=== PATIENT | male | born 1960 | race Caucasian/White ===

== ENCOUNTER 2023-06-16 14:02 | Inpatient (IN) | payer MEDICARE, OTHER, SELFPAY ==
[2023-06-16] VITALS (10 sets, daily range): BP systolic 108–137; BP diastolic 67–86; BMI 25.1
--- NOTE | 2023-06-16 10:48 | ED.GENMED ---
History of Present Illness
General
Chief Complaint: Fall
Source: patient and ambulance crew
Exam Limitations: none
Time Seen by Provider: 06/16/23 10:47
Nursing documentation reviewed up to this point in time: agreed with
History of Present Illness
History of Present Illness:
63-year-old male with a past medical history of prior renal and liver transplants at [facility] (he says this past February) who presents to the emergency department for evaluation after fall. Patient reports that he was in the bathtub this morning
and slipped and fell. He says that he hit the back of his head. Did not lose consciousness. Injured his right hip. He complains of severe right hip pain. He denies any other complaints including headache, neck pain, back pain. Denies any chest
or abdominal pain. He denies being on any blood thinners.
Review of Systems
Review of Systems
All Other Systems: ROS reviewed and negative except as documented in HPI and ROS
Constitutional: Denies fever
Respiratory: Denies trouble breathing
Cardiac: Denies chest pain
ABD/GI: Denies abdominal pain, nausea or vomiting
: Denies flank pain
Musculoskeletal: Reports joint pain (Right hip pain); Denies neck pain or back pain
Neurological: Denies dizzy, headache, weakness or numbness
Phy Exam
Physical Exam
Physical Exam:
General: Awake, alert, oriented x3; appears uncomfortable
Head: Normocephalic, occipital scalp hematoma and laceration (approximately 1 cm)
Eyes: Conjunctiva normal, pupils equal round and reactive to light bilaterally
Throat: Airway intact, handling secretions
Neck: Trachea midline, supple without meningismus
Lungs: Clear to auscultation bilaterally, no wheezing, rales, rhonchi
Heart: Regular rate and rhythm, no murmurs, gallops, or rubs; no chest wall tenderness
Abd: Soft, non distended, nontender
Neuro: No gross deficits
Skin: Small occipital scalp laceration approximately 1 cm
Extremities: Right lower extremity is shortened and externally rotated; he has severe pain with any attempt at movement of his right hip; he has a good palpable right DP pulse; rest of his extremities are atraumatic with good pulses
Scores
Heart Failure Risk
Heart Failure Risk Score: Not Applicable
Heart Score for Chest Pain Patients
STEMI patient?: Not applicable
Withdrawal Assessment of Alcohol
Withdrawal Assessment Completed?: Not applicable
Course
Orders/Labs/Results
Orders:
Orders
06/16/23
Electrocardiogram (*1) Stat
Reason for Study: Chest Pain
Comment: already done
06/16/23 10:47
CT Cervical Spine W/o Iv Contr Urgent
Comment:
Reason For Exam: fall with occipital head stike
CT Head W/o Iv Contrast Urgent
Comment:
Reason For Exam: fall with occipital head stike
HYDROmorphone [Dilaudid] 1 mg IV NOW STA
CR Hip - RT w/wo Pel 2-3 Vw* Urgent
Comment:
Reason For Exam: right hip pain, short and ext rotated
Include a pelvis x-ray?: Yes
06/16/23 10:50
Type+Screen Urgent
Complete Blood Count/With Diff Urgent
Comprehensive Metabolic Panel Urgent
PTT Urgent
Prothrombin Time Urgent
06/16/23 11:16
HYDROmorphone [Dilaudid] 0.5 mg IV NOW STA
06/16/23 11:26
Ondansetron Injectable [Zofran] 4 mg .ROUTE .STK-MED ONE
06/16/23 12:08
CT Lower Ext W/o Iv Cont Rt Urgent
Comment: PER ORTHO REQUEST FOR OR PLANNING
Reason For Exam: right hip fx (please scan hip through femur)
06/16/23 12:46
Fentanyl Citrate/Pf [Sublimaze] 100 mcg IV ONCE PRN
Abnormal Lab Results
06/16/23
10:50
RBC 4.29 L 10^6/uL
(4.70-6.10)
Hct 36.7 L %
(39.0-52.0)
Abs Immat Gran (auto) 0.1 H 10^3/uL
(0-0.05)
Absolute Neuts (auto) 8.6 H 10^3/uL
(1.4-6.5)
Immature Gran % 0.9 H %
(0-0.5)
Neutrophils % 79.3 H %
(42.2-75.2)
Lymphocytes % 13.0 L %
(20.5-51.1)
BUN 28 H mg/dl
(9-20)
Glucose 101 H mg/dl
(70-99)
06/16/23 10:50
06/16/23 10:50
Vital Signs
Initial and Last Documented VS:
Initial Vital Signs
Pulse Resp
93 18
06/16/23 10:55 06/16/23 10:55
Last Documented Vital Signs
Temp Pulse Resp BP Pulse Ox
37.0 C 87 16 108/83 100
06/16/23 10:56 06/16/23 11:15 06/16/23 10:56 06/16/23 11:00 06/16/23 11:15
Procedures
Laceration Closure
Scalp:
Status of Wound: clean
Size of Wound in cm: 1
Description of Wound Edges: ragged
Preparation: cleaned with saline
Revision/Debridement: routine- no revision
Type of Closure: single layer closure
Skin Closure Material: skin zaina
Number of sutures: 2
MDM/Problems Addressed
Differential Diagnosis Includes:
Must rule out traumatic head injury; regarding his right hip pain differential would include dislocation versus fracture versus contusion/hematoma
MDM/Problems Addressed:
63-year-old male presents after mechanical slip and fall in the bathtub with head trauma and right hip injury. Vital signs and exam as above. Plan to check CT head and cervical spine. Will check an x-ray of the hip and pelvis. Will check basic
labs and EKG. Will treat patient's pain. Monitor closely reassess after the above.
Labs reviewed CBC unremarkable, CMP no clinically significant abnormalities. CT head and cervical spine negative for any acute posttraumatic injuries. X-ray of the hip shows right hip fracture. Case discussed with orthopedist they will evaluate,
OR planning. Case discussed with hospitalist for admission.
*Radiology
Radiology exam reviewed: preliminary read by ED provider and radiology read reviewed
*Pulse Oximetry
Patient hypoxic: no
*EKG
Interpreted by ED Provider?: Yes
Heart Rate: 95
Rate: normal
Rhythm: sinus
[place]: normal axis
Interval: normal interval
QRS Pattern: normal QRS
Ischemia: no ischemia
*Critical Care Note
Total Time (30-74mins, 75-104mins- exclusive of procedures): Not Applicable
Data Reviewed
Source: patient and ambulance crew
Patient Management
Discussion with other providers: Hospitalist (Discussed with hospitalist) and [employer] (Discussed with orthopedist)
Escalation/DeEscalation of care consider admission/obs:
Admission indicated
ED Attending Note
-
Portions of this chart may have been created with voice recognition software.� Occasional wrong word or��sound alike� substitutions may have occurred due to the inherent limitations of voice recognition software.
Discharge Plan
Departure
Patient Disposition: Admit
Date of Disposition: 06/16/23
Time of Disposition: 12:09
Admit to doctor: Tianna
Presentation/result/management discussed w/ accepting MD/DO: Hospitalist
Discharge Problem:
Fracture of right hip, Laceration of scalp
Prescriptions:
No Action
tacrolimus 1 mg Capsule
3 mg PO Q12H
Levemir FlexPen 100 unit/mL (3 mL) Insulin Pen
24 unit SC HS
melatonin 3 mg Tablet
9 mg PO HS
Rx Instructions:
06/16/2023, take with 36 mg HS for a total of 45 mg.
aspirin 81 mg Tablet,Delayed Release (Dr/Ec)
81 mg PO DAILY
insulin lispro 100 unit/mL Insulin Pen
0 sliding scale dose SC DIRECTED
Patient Comments:
06/16/2023, pt. manages their own insulin and takes it on a sliding scale; per pt., he follows his own sliding scale; if his BS is 99 he will take 7 units; if 150 = 10 units; if 200 = 12 units.
mycophenolate sodium 180 mg Tablet,Delayed Release (Dr/Ec)
180 mg PO Q12H
oxycodone 10 mg Tablet
10 mg PO .SEE BELOW PRN (Reason: severe pain)
Patient Comments:
06/16/2023, prescribed BIDPRN; however, pt. takes Q4HPRN. Pt. filled this med. on 06/01/2023 for 10 tablets per PDMP.
melatonin 12 mg Tablet
36 mg PO HS
Rx Instructions:
06/16/2023, take with 9 mg HS for a total of 45 mg.
Referrals:
Geneva Lantigua DO [Family Provider] -
Interventions
Interventions:
*Risk Screen - Suicide Last Done: 06/16/23 10:56
*General Assessment Last Done: 06/16/23 10:56
*Neglect/Abuse Screening Last Done: 06/16/23 10:56
ED- Fall Risk Assessment Last Done: 06/16/23 10:56
*ED COVID-19 Vaccine History Last Done: 06/16/23 10:56
ED-Musculoskeletal Assessment Last Done: 06/16/23 10:56
ED- Neurological Assessment Last Done: 06/16/23 10:56
ED-Skin Assessment Last Done: 06/16/23 10:56
--- NOTE | 2023-06-16 11:00 | EDRN ---
zaina placed to posterior laceration by provider Dr. Garibay
[2023-06-16 11:03] LABS: % Basophils 0.3 % (0-2); % Eosinophils 1.3 % (0-6); % Immature Granulocytes 0.9 % (0-0.5); % Monocytes 5.2 % (1.7-9.3); % Neutrophils 79.3 % (42.2-75.2); Absolute Eosinophils 0.1 10^3/uL (0-0.7); Absolute Immature Granulocytes 0.1 10^3/uL (0-0.05); Absolute Lymphocytes 1.4 10^3/uL (1.2-3.4); Absolute Monocytes 0.6 10^3/uL (0.1-0.6); Absolute Neutrophils 8.6 10^3/uL (1.4-6.5); Hematocrit 36.7 % (39.0-52.0); Hemoglobin 13.3 g/dL (13.0-18.0); Mean Corp Hgb Conc. 36.2 g/dL (33.0-37.0); Mean Corpuscular Volume 85.5 fL (80.0-94.0); Mean Platelet Volume 10.4 fL (7.4-10.4); Nucleated Red Blood Cells % 0 % (-); Platelet Count 139 10^3/uL (130-400); Red Blood Cell Count 4.29 10^6/uL (4.70-6.10); White Blood Cell Count 10.8 10^3/uL (4.8-10.8)
[2023-06-16] MEDS: DILAUDID 1 MG IV ×3 (11:09→19:21)
[2023-06-16 11:11] LABS: INR 1.06; PT 13.6 Sec (11.4-14.6)
[2023-06-16 11:12] LABS: ALT (SGPT) 18 U/L (0-50); APTT 27.5 Sec (23.4-35.0); AST (SGOT) 21 U/L (17-59); Alkaline Phosphatase 87 U/L (38-126); Blood Urea Nitrogen 28 mg/dl (9-20); Calcium 8.9 mg/dl (8.4-10.2); Carbon Dioxide 26 mmol/L (22-30); Chloride 107 mmol/L (98-107); Estimated Creatinine Clearance 80 ml/min; Glucose 101 mg/dl (70-99); Potassium 4.4 mmol/L (3.5-5.1); Sodium 137 mmol/L (135-145); Total Bilirubin 1.3 mg/dl (0.2-1.3); Total Protein 6.6 g/dl (6.3-8.2); eGFR > 60.00
[2023-06-16] MEDS: DILAUDID 0.5 MG IV ×2 (11:26→22:17)
--- NOTE | 2023-06-16 11:32 | EDRN ---
the pts pants were removed by this RN and the help of another nurse Nathaly RN before the pt went to xray, the pt reported that he was still feeling pain in the right groin/right hip area and that his pain was 09/17-11/17, this RN notified Dr. Garibay and
another dose of dilaudid was administered before the pt went to xray
[2023-06-16] MEDS: SUBLIMAZE 100 MCG IV (13:00)
--- NOTE | 2023-06-16 13:53 | EDRN ---
hospitalist at the pts bedside speaking with the pt
--- NOTE | 2023-06-16 14:00 | HPS.HSE ---
Addendum entered and electronically signed by Manuel Alcazar MD 06/16/23 14:23:
I saw and examined the patient.
The ESTIMATOR LUMBER's note was reviewed and I agree with the note.
Comment:
63-year-old male past medical history of liver cirrhosis/hep C infection/CKD status post liver and renal transplant on February 26, 2022, insulin-dependent diabetes, CAD status post stents x 4 is presenting with a fall from hotel. Patient is
currently residing in a hotel. Patient states he got out of the shower slipped and hit his head. Patient complaining of severe pain. Patient was found to be right femur fracture. Prior to the fall patient denied any chest pain palpitation.
States at baseline he is mobile and active.
General: Well Developed, Well Nourished and Other (Appears in pain)
HEENT: Anicteric and Moist mucous membranes
Respiratory: Clear and Non Labored Respirations
Cardiac: S1/S2 and Regular Rhythm
GI: Soft and Non Tender, nondistended
Musculoskeletal: No Clubbing, No Cyanosis and Other (Right Lower Ext shortened and externally rotated)
Skin: Warm and Dry
Neuro: Awake, Alert and Oriented
Impression
Right femur fracture
Mechanical fall
Liver transplant
Renal transplant
Diabetes mellitus
CAD status post stents x4
Chronic immunosuppressant state
Chronic opiate dependent
Plan
Seems to have a high pain tolerance
Continue with pain control with Dilaudid
N.p.o. past midnight
Await orthopedic eval/recs
Patient currently without any chest pain or shortness of breath. Patient states at baseline he is fairly active and did not have any chest pain at rest or exertion. Patient said he is able to go up a couple flights of stairs without any
difficulty. Able to ambulate and walk. Patient with history of diabetes and coronary artery disease seems to be well-controlled. EKG with normal sinus rhythm ventricular rate of 78. No severe acute ST or T wave changes noted. No prior EKG to
compare. Patient with class II/III intermediate cardio risk for operating room. Risk outweighs benefits. Medically necessary surgery and may proceed.
Continue with patient immunosuppressant medication.
Check urine drug screen
Hold aspirin in the setting of surgery and can be restarted postop if cleared by surgery
DVT prophylaxis SCDs and postop per orthopedic
I spent a total of 78 minutes with the patient or on the floor. More than 50% of this time involved counseling and coordination of care.
Original Note:
Family Physician
-
Family Physician: Geneva Lantigua
Chief Complaint
-
Fall with severe hip pain
History of Present Illness
Patient is a 63 y/o male with PMH of cirrhosis secondary to hepatitis C infection s/p liver and left renal transplant and insulin-dependent type II diabetes mellitus who presented to the ED following a fall this morning. Patient reports that he fell
while getting out of the shower and hit his head. He does not remember exactly how or why he fell. Hip x-ray revealed fracture of the right femur, head CT and cervical spine CT revealed no abnormalities. He reports that this pain was originally
01/17 but is now decreasing after administration of pain medication in the ED. He denies fever, chest pain, and SOB.
Medical History
Past Medical History
Past Medical History: Reports Other
Additional Past Medical History:
Coronary Artery Disease
Diabetes Mellitus, Type II
Cirrhosis secondary Hepatitis C
Past Surgical History: Reports Other
Additional Past Surgical History:
Kidney Transplant
Liver Transplant
Cardiac Stents
Social History
Tobacco: Former Smoker (Quit 14 years ago)
Family History
Family History: Not pertinent
Allergies / Home Medications
Allergies reflects when Allergies were last updated in [facility].
Home Medications with original date entered in [facility]
Allergy/Medication List:
Allergies
Allergy/AdvReac Type Severity Reaction Status Date / Time
No Known Allergies Allergy Unverified 06/16/23 10:49
Home Medications
aspirin 81 mg tablet,delayed release 81 mg PO DAILY 06/16/23
insulin detemir U-100 100 unit/mL (3 mL) subcutaneous pen (Levemir FlexPen) 24 unit SC HS 06/16/23
insulin lispro 100 unit/mL subcutaneous pen 0 sliding scale dose SC DIRECTED 06/16/23
melatonin 12 mg tablet 36 mg PO HS 06/16/23
melatonin 3 mg tablet 9 mg PO HS 06/16/23
mycophenolate sodium 180 mg tablet,delayed release 180 mg PO Q12H 06/16/23
oxycodone 10 mg tablet 10 mg PO .SEE BELOW PRN severe pain 06/16/23
tacrolimus 1 mg capsule, immediate-release 3 mg PO Q12H 06/16/23
Review of Systems
-
A 12 point ROS was completed and negative except as noted: Yes
Constitutional: Denies Fever or Chills
Respiratory: Denies Cough or Trouble Breathing
Cardiac: Denies Chest Pain or Palpitations
Musculoskeletal: Reports See HPI
Physical Exam
Vital Signs
Vital Signs
Temp Pulse Resp BP Pulse Ox
98.6 F 89 16 114/76 100
06/16/23 10:56 06/16/23 13:49 06/16/23 10:56 06/16/23 13:49 06/16/23 13:49
Physical Exam
General: Well Developed, Well Nourished and Other (Appears in pain)
HEENT: Anicteric and Moist mucous membranes
Respiratory: Clear and Non Labored Respirations
Cardiac: S1/S2 and Regular Rhythm
GI: Soft and Non Tender
Rectal: Deferred by Provider
Musculoskeletal: No Clubbing, No Cyanosis and Other (Right Lower Ext shortened and externally rotated)
Skin: Warm and Dry
Neuro: Awake, Alert and Oriented
Laboratory Results
-
06/16/23 10:50
06/16/23 10:50
Laboratory Results
PT 13.6 Sec (11.4-14.6) 06/16/23 10:50
INR 1.06 06/16/23 10:50
APTT 27.5 Sec (23.4-35.0) 06/16/23 10:50
Total Bilirubin 1.3 mg/dl (0.2-1.3) 06/16/23 10:50
AST 21 U/L (17-59) 06/16/23 10:50
ALT 18 U/L (0-50) 06/16/23 10:50
Alkaline Phosphatase 87 U/L (38-126) 06/16/23 10:50
Data Reviewed
-
CT Scan: Report Reviewed by me
Lab Data: Labs Reviewed by me
Impression/Plan
-
Right Hip Fracture
-Consult Orthopedics
-NPO pending Ortho eval
-Continue Dilaudid for moderate/severe pain
Coronary Artery Disease s/p stent
-Hold aspirin in preparation for OR
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
-Continue mycophenolate and tacrolimus
Diabetes Mellitus, Type II
-Half usual dose of Levemir ordered while NPO for OR
-Monitor sugars and continue coverage insulin
DVT proph: SCDs
Code Status: Full Code
--- NOTE | 2023-06-16 14:39 | EDRN ---
this RN called the receiving unit and notified them that paper report was going to be tubed up
--- NOTE | 2023-06-16 15:17 | EDRN ---
this coding compliance specialist the pt screaming, 'Nurse, nurse please help me, help me!', this RN entered the pts room with ruth Fields and the pt c/o severe 10/10 right hip pain, this RN administered PRN dilaudid, ortho at the pts bedside, the pt is resting in
stretcher in the lowest position, side rails up x2, call prasad within reach, HOB elevated, NSR in the 80's, last BP 115/67 (81), RA Sp02 100%, will continue to monitor the pt closely
--- NOTE | 2023-06-16 15:35 | EDRN ---
the pt is resting in stretcher in the lowest position, side rails up x2, call prasad within reach, HOB slightly elevated, no s/s of distress, the pt states that pain is 'much better', and is a 5/10 currently, awaiting for the pt to go upstairs
--- NOTE | 2023-06-16 15:56 | CON.ORTHO ---
Consultation - Orthopedics
History
Patient is a 63-year-old male presents to [facility] status post fall at his hotel after getting out of the shower. Imaging in the ED revealed a right hip fracture and orthopedic surgery consultation was subsequently rendered. Patient has a
history significant for cirrhosis and hep C infection with CKD status post liver and renal transplant in February 2022. He is also insulin-dependent diabetic and has CAD status post stents x 4. He reports of severe pain in his right hip. He
denies any pain in his right knee or ankle. He does report that he is fairly active and walks about 1 mile a day. Denies any numbness or tingling in his right lower extremity.
Allergies / Home Medications
Allergy/AdvReac Type Severity Reaction Status Date / Time
No Known Allergies Allergy Unverified 06/16/23 10:49
Medication Instructions Recorded
aspirin 81 mg tablet,delayed 81 mg PO DAILY 06/16/23
release
insulin detemir U-100 100 unit/mL 24 unit SC HS 06/16/23
(3 mL) subcutaneous pen (Levemir
FlexPen)
insulin lispro 100 unit/mL 0 sliding scale dose SC DIRECTED 06/16/23
subcutaneous pen
melatonin 12 mg tablet 36 mg PO HS 06/16/23
melatonin 3 mg tablet 9 mg PO HS 06/16/23
mycophenolate sodium 180 mg 180 mg PO Q12H 06/16/23
tablet,delayed release
oxycodone 10 mg tablet 10 mg PO .SEE BELOW PRN 06/16/23
severe pain
tacrolimus 1 mg capsule, 3 mg PO Q12H 06/16/23
immediate-release
Vital Signs / Lab Results
Temp Pulse Resp BP Pulse Ox
98.6 F 85 16 115/67 99
06/16/23 10:56 06/16/23 15:30 06/16/23 10:56 06/16/23 15:00 06/16/23 15:30
06/16/23 10:50
06/16/23 10:50
Review of systems: Negative unless as stated in the HPI
General: Well Developed, Well Nourished and Other (Appears in pain)
HEENT: Anicteric and Moist mucous membranes
Respiratory: Clear and Non Labored Respirations
Cardiac: S1/S2 and Regular Rhythm
GI: Soft and Non Tender, nondistended
Skin: Warm and Dry
Neuro: Awake, Alert and Oriented
MSK: Pain elicited upon palpation of right groin. Range of motion right hip and knee limited due to pain at the right hip. Painless range of motion present of the right ankle. Skin intact with no lacerations or breakage. Dorsalis pedis pulse 2+.
Sensation intact at the right lower extremity grossly.
Imaging:
X-rays of the right hip and CT of the lower extremity was reviewed. Images demonstrate a subcapital right hip fracture with extension to the lesser trochanter. Fracture appears to be minimally displaced.
Assessment / Plan
Assessment:
Minimally displaced subcapital right hip fracture with extension into the lesser trochanter
Plan:
Lengthy discussion had with patient regarding treatment options. Case also discussed with our orthopedic joints colleagues. Due to the minimally displaced nature of the fracture and due to his significant medical comorbidities, it is appropriate
to treat the fracture with closed versus open reduction and sliding hip screw fixation. We will plan on performing this procedure tomorrow morning. Please hold all anticoagulation and keep patient n.p.o. after midnight tonight. Right lower
extremity nonweightbearing. Further recommendations after surgery.
[2023-06-16 17:00] LABS: Glucose - Point of Care 86 mg/dl (70-99)
[2023-06-16] MEDS: ROXICODONE 10 MG PO (17:04)
--- NOTE | 2023-06-16 17:13 | PTCARENOTE ---
Received patient from ER around 1545 via stretcher in stable condition. Patient oriented to room. Right hip with pain. Estrellita 10 mg po given as ordered as it was not time for dilaudid yet. SCDs on. Call prasad in place.
[2023-06-16] MEDS: PROGRAF 3 MG PO (20:24)
[2023-06-16] MEDS: MYFORTIC DELAYED REL. 180 MG PO (20:24)
[2023-06-16 21:18] LABS: Glucose - Point of Care 128 mg/dl (70-99)
[2023-06-16] MEDS: MELATONIN 10 MG PO (22:14)
[2023-06-16] MEDS: LEVEMIR 0.119999999999999996 UNITS SC (22:14)
[2023-06-16 23:56] LABS: Glucose - Point of Care 145 mg/dl (70-99)
[2023-06-17] VITALS (9 sets, daily range): BP systolic 101–161; BP diastolic 58–80
[2023-06-17] MEDS: DILAUDID 1 MG IV ×7 (01:15→23:12)
[2023-06-17 01:48] LABS: Amphetamines Negative (Negative); Barbiturates Negative (Negative); Benzodiazepines Negative (Negative); Buprenorphine Negative (Negative); Cocaine Negative (Negative); Marijuana Negative (Negative); Methadone Negative (Negative); Methamphetamines Negative (Negative); Opiates Positive (Negative); Phencyclidine Negative (Negative); Tricyclic Antidepressants Negative (Negative)
[2023-06-17 02:05] LABS: Fentanyl, Urine Positive (Negative)
[2023-06-17 06:20] LABS: Glucose - Point of Care 79 mg/dl (70-99)
[2023-06-17 07:13] LABS: Hematocrit 32.2 % (39.0-52.0); Hemoglobin 11.5 g/dL (13.0-18.0); Mean Corp Hgb Conc. 35.7 g/dL (33.0-37.0); Mean Corpuscular Hgb 30.5 pg (27.0-31.0); Mean Corpuscular Volume 85.4 fL (80.0-94.0); Mean Platelet Volume 10.4 fL (7.4-10.4); Platelet Count 115 10^3/uL (130-400); Red Blood Cell Count 3.77 10^6/uL (4.70-6.10); Red Cell Dist. Width 13.9 % (11.5-14.5); White Blood Cell Count 8.1 10^3/uL (4.8-10.8)
[2023-06-17 07:41] LABS: Blood Urea Nitrogen 31 mg/dl (9-20); Calcium 8.6 mg/dl (8.4-10.2); Carbon Dioxide 23 mmol/L (22-30); Chloride 106 mmol/L (98-107); Estimated Creatinine Clearance 67 ml/min; Glucose 79 mg/dl (70-99); Sodium 136 mmol/L (135-145); eGFR > 60.00
[2023-06-17 07:46] LABS: Potassium 4.3 mmol/L (3.5-5.1)
[2023-06-17 09:39] LABS: Glycohemoglobin (HgbA1c) 7.4 % (4.0-5.6)
--- NOTE | 2023-06-17 10:31 | W.PN.HOSP.TC ---
Today's Communication/Plan
-
resume back insulin
pain control
pt/ot tomorrow
Assessment / Plan
Assessment / Plan
Right Hip Fracture
-s/p ORIF today
-Continue Dilaudid for moderate/severe pain
-PT/OT from tomorrow
Left side Roator cuff inj
-Patient stated of injuring rotator cuff somehow
-Patient instructed to discuss with orthopedic surgeon
Coronary Artery Disease s/p stent
-resume back asa
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
-Continue mycophenolate and tacrolimus
Diabetes Mellitus, Type II
-Resume back on home dose of Levemir 24U HS
-Monitor sugars and continue coverage insulin
DVT proph: SCDs
Code Status: Full Code
Anticipated Discharge: 24 - 48 hours
Subjective/Interval History
-
Date of Service: June 17, 2023
Patient seen postoperatively
Complain 10 out of 10 pain in right hip
stated of having left torn rotator cuff somehow, have not been evaluated
Objective Data
-
Labs:
Laboratory Results
06/17/23
06:19
WBC 8.1
Hgb 11.5 L
Hct 32.2 L
Plt Count 115 L
Sodium 136
Potassium 4.3
Chloride 106
Carbon Dioxide 23
BUN 31 H
Creatinine 1.2
Glucose 79
Calcium 8.6
Vital Signs:
Vital Signs
Temp Pulse Resp BP Pulse Ox
97.8 F 90 16 118/73 99
06/17/23 07:45 06/17/23 07:45 06/17/23 07:45 06/17/23 07:45 06/17/23 07:45
I&O
06/16/23 06/17/23 06/18/23
06:59 06:59 07:59
Intake Total 480 / 480
Output Total 400 / 400
Balance 80 / 80
Review of Systems
-
Respiratory: Reports No Symptoms
Cardiac: Reports No Symptoms
Abdomen/GI: Reports No Symptoms
Physical Exam
-
HEENT: Negative Oxygen
Respiratory: Clear to Auscultation
Cardiac: Regular Rhythm and S1/S2; Negative Murmur or Rub
GI: Soft, Nontender and Nondistended
Musculoskeletal: No Edema
Neuro: Awake, Alert, Oriented, No Motor Deficits and Nonfocal/Grossly Intact
Psych: Calm
[2023-06-17 10:50] LABS: Glucose - Point of Care 98 mg/dl (70-99)
[2023-06-17] MEDS: DILAUDID 0.25 MG IV ×2 (11:09→11:14)
[2023-06-17] MEDS: PROGRAF 3 MG PO ×2 (11:36→19:54)
[2023-06-17] MEDS: MYFORTIC DELAYED REL. 180 MG PO ×2 (11:36→19:54)
[2023-06-17] MEDS: DILAUDID 0.5 MG IV (14:01)
--- NOTE | 2023-06-17 14:24 | W.PN.UPDATE ---
Update Note
Progress Note Update
Patient is status post right hip closed reduction and sliding hip compression screw fixation. Pain controlled, moving right ankle. Dressing CDI. He may weight-bear as tolerated right lower extremity. PT/OT. DVT prophylaxis with SCDs and aspirin
325 mg twice daily x 4 weeks. Diet okay.
--- NOTE | 2023-06-17 15:14 | CM ---
CM following re: discharge planning.
Reviewed pt's chart, met with pt.
Pt is a 63 year old male, admitted with primary dx of Right Hip Fracture, s/p ORIF today
Pt reports he has been staying in and out in [employer] in [place], also stays in friends houses, has 4 supportive children. 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 Pt is aware he will need SNF level of care at discharge and following
SNFs requested: [facility], [facility], [facility], [facility]F. A referral to above SNFs made.
PCP: Geneva Lantigua
Pharmacy: [facility]
D/C plan: preferred SNF. Awaiting for determinations
CM will follow to assist pt with discharge to a preferred and accepted SNF.
[2023-06-17 16:50] LABS: Glucose - Point of Care 131 mg/dl (70-99)
[2023-06-17] MEDS: ANCEF 5 IV ×2 (17:22→23:12)
[2023-06-17] MEDS: ASPIRIN 325 MG PO (19:54)
[2023-06-17] MEDS: FLEXERIL 5 MG PO (19:54)
[2023-06-17 21:37] LABS: Glucose - Point of Care 282 mg/dl (70-99)
[2023-06-17] MEDS: MELATONIN 10 MG PO (21:58)
[2023-06-17] MEDS: LEVEMIR 0.239999999999999991 UNITS SC (21:58)
[2023-06-18 03:00] VITALS: BP 98/61
[2023-06-18] MEDS: DILAUDID 1 MG IV ×3 (03:29→09:31)
[2023-06-18 06:32] LABS: Hematocrit 28.9 % (39.0-52.0); Hemoglobin 10.5 g/dL (13.0-18.0); Mean Corp Hgb Conc. 36.3 g/dL (33.0-37.0); Mean Corpuscular Hgb 30.9 pg (27.0-31.0); Mean Platelet Volume 10.2 fL (7.4-10.4); Platelet Count 111 10^3/uL (130-400); Red Cell Dist. Width 13.9 % (11.5-14.5); White Blood Cell Count 8.2 10^3/uL (4.8-10.8)
[2023-06-18 06:53] LABS: Blood Urea Nitrogen 32 mg/dl (9-20); Calcium 8.3 mg/dl (8.4-10.2); Carbon Dioxide 24 mmol/L (22-30); Chloride 108 mmol/L (98-107); Estimated Creatinine Clearance 62 ml/min; Glucose 157 mg/dl (70-99); Potassium 4.2 mmol/L (3.5-5.1); Sodium 134 mmol/L (135-145); eGFR > 60.00
[2023-06-18 08:00] VITALS: BP 96/62
--- NOTE | 2023-06-18 08:06 | W.PN.ORTHO ---
Documented by User: Viviana Vale PA-C 06/18/23 08:11
Today's Communication / Plan
-
63 yo M POD1 right hip closed reduction and sliding hip compression screw fixation under the direction of Dr. Arredondo
--Patient may be WBAT to RLE with assistive device. We appreciate the assistance of PT/OT.
--Recommend ASA 325 mg BID x30 days post-op for DVT ppx.
--Continue current pain management regimen. Ice and elevation for edema control.
--Hgb 10.5. Continue to monitor.
--Aquacel to remain in place until 7-10 days post-op. Staple removal at 2 weeks post-op.
--Case management consult for discharge planning.
--Orthopedics will continue to follow along.
Assessment
.
Distal Motor Intact: Yes
Dressing:
Clean, dry and intact.
Plan
.
Surgery / Date: ORIF R hip, Maria Elena, 06/17/23
DVT Prophylaxis: Aspirin
Activity:
Out of bed.
PT/OT
Subjective
.
.:
Mr. Crawford is POD1 following his right hip closed reduction and sliding hip compression screw fixation performed by Dr. Arredondo (DOS 06/17/2023). He is resting comfortably in bed this morning. He does endorse aching pain about his hip and thigh, but
states this is well controlled with his current pain management regimen.
Vital Signs and Labs
.
Vital Signs and Labs:
Lab Results
06/18/23 06:07
06/18/23 06:07
Temp Pulse Resp BP Pulse Ox
97.4 F 87 16 98/61 99
06/18/23 03:00 06/18/23 03:00 06/18/23 03:00 06/18/23 03:00 06/18/23 03:00
PT 13.6 Sec (11.4-14.6) 06/16/23 10:50
INR 1.06 06/16/23 10:50
Physical Exam
-
Directed exam of the right lower extremity reveals Aquacel dressing clean, dry and intact. Tenderness to palpation about the anterior hip and thigh. Thigh soft and compressible. Calf soft and nontender. Patient able to wiggle toes, plantar and
dorsiflex ankle. Neurovascularly intact distally.

Documented by User: Cassia Arredondo, 06/18/23 15:21
Today's Communication / Plan
-
63 yo M POD1 right hip closed reduction and sliding hip compression screw fixation under the direction of Dr. Arredondo
--Patient may be WBAT to RLE with assistive device. We appreciate the assistance of PT/OT.
--Recommend ASA 325 mg BID x4 weeks post-op for DVT ppx.
--Continue current pain management regimen. Ice and elevation for edema control.
--Hgb 10.5. Continue to monitor.
--Aquacel to remain in place until 7-10 days post-op. Staple removal at 2 weeks post-op.
--Case management consult for discharge planning.
--Orthopedics will continue to follow along.
[2023-06-18 08:39] LABS: Glucose - Point of Care 67 mg/dl (70-99)
[2023-06-18] MEDS: NOVOLOG FLEXPEN-LOW RESISTANCE SC (09:01)
[2023-06-18 09:05] LABS: Glucose - Point of Care 52 mg/dl (70-99)
[2023-06-18] MEDS: MYFORTIC DELAYED REL. 180 MG PO ×2 (09:07→20:13)
[2023-06-18] MEDS: ASPIRIN 325 MG PO ×2 (09:07→20:14)
[2023-06-18] MEDS: PROGRAF 3 MG PO ×2 (09:07→20:13)
[2023-06-18 09:17] LABS: Glucose - Point of Care 71 mg/dl (70-99)
[2023-06-18 09:38] VITALS: BP 101/63; BP 117/68; PULSE 63
--- NOTE | 2023-06-18 11:23 | W.PN.HOSP.TC ---
Today's Communication/Plan
-
Decrease Lantus dose
Adjust pain medication
Assessment / Plan
Assessment / Plan
Right Hip Fracture
Acute blood loss anemia from surgery
-s/p ORIF today
-Pain medication adjusted to oral oxycodone for severe pain with Dilaudid for breakthrough
-Patient not participating with PT OT due to excessive pain
-Transfuse hemoglobin less than 7
Left side Roator cuff inj
-Patient stated of injuring rotator cuff somehow
-Patient instructed to discuss with orthopedic surgeon
Coronary Artery Disease s/p stent
-resume back asa
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
-Continue mycophenolate and tacrolimus
Diabetes Mellitus, Type II
-Monitor sugars and continue coverage insulin
-Encourage oral intake. Glucose during the morning today, will decrease nighttime Lantus
Mild hyponatremia
-Monitor
DVT proph: SCDs
Code Status: Full Code
Anticipated Discharge: Within 24 hours
Subjective/Interval History
-
Date of Service: June 18, 2023
Continues to complain significant pain in right hip, did not participate with therapy due to pain
No reported acute issues overnight
Objective Data
-
Labs:
Laboratory Results
06/18/23
06:07
WBC 8.2
Hgb 10.5 L
Hct 28.9 L
Plt Count 111 L
Sodium 134 L
Potassium 4.2
Chloride 108 H
Carbon Dioxide 24
BUN 32 H
Creatinine 1.3
Glucose 157 H
Calcium 8.3 L
Vital Signs:
Vital Signs
Temp Pulse Resp BP Pulse Ox
97.6 F 74 18 96/62 98
06/18/23 08:00 06/18/23 08:00 06/18/23 08:00 06/18/23 08:00 06/18/23 08:00
I&O
06/17/23 06/18/23 06/19/23
05:59 06:59 06:59
Intake Total 480 / 480
Output Total 700 / 700
Balance -220 / -220
Review of Systems
-
Respiratory: Reports No Symptoms
Cardiac: Reports No Symptoms
Abdomen/GI: Reports No Symptoms
Physical Exam
-
HEENT: Negative Oxygen
Respiratory: Clear to Auscultation
Cardiac: Regular Rhythm and S1/S2; Negative Murmur or Rub
GI: Soft, Nontender and Nondistended
Musculoskeletal: No Edema
Neuro: Awake, Alert, Oriented, No Motor Deficits and Nonfocal/Grossly Intact
Psych: Calm
[2023-06-18 11:31] LABS: Glucose - Point of Care 164 mg/dl (70-99)
[2023-06-18] MEDS: ROXICODONE 15 MG PO ×3 (13:07→23:32)
[2023-06-18 13:10] LABS: Glucose - Point of Care 151 mg/dl (70-99)
[2023-06-18] MEDS: NOVOLOG FLEXPEN-LOW RESISTANCE 1 UNITS SC ×2 (13:48→18:11)
[2023-06-18] MEDS: DILAUDID 0.25 MG IV ×3 (14:18→22:21)
[2023-06-18 16:24] LABS: Glucose - Point of Care 357 mg/dl (70-99)
[2023-06-18 16:26] VITALS: BP 100/62
[2023-06-18 16:40] LABS: Glucose - Point of Care 154 mg/dl (70-99)
[2023-06-18 18:08] LABS: Glucose - Point of Care 153 mg/dl (70-99)
--- NOTE | 2023-06-18 19:21 | OR.RPT ---
Operative Report
Operative Report
Orthopedic Surgery Operative Report
Date of Surgery: 06/17/23
PREOPERATIVE DIAGNOSES:
1. Right femoral neck fracture
POSTOPERATIVE DIAGNOSES:
1. Right femoral neck fracture
PROCEDURE PERFORMED:
1. Right femur closed reduction and sliding hip screw fixation
SURGEON: Cassia Arredondo D.O.
DIVE MASTER: MALCOLM Huston, who helped with patient and limb positioning
ANESTHESIA: General
COMPLICATIONS: None
ESTIMATED BLOOD LOSS: 50 cc
DRAINS: None
SPECIMEN: None
IMPLANTS:
[employer] implants
135 degree standard barrel 3-hole plate
100mm lag screw
4.5x42mm cortical screw x 2
4.5x44mm cortical screw x 1
Compression screw
INDICATION FOR SURGERY: The patient is a 63-year-old male with a past medical history significant for cirrhosis, hepatitis C, liver and kidney transplant, and CAD with stents x 4 who presented to the hospital status post fall. Imaging demonstrated
a minimally displaced right hip fracture. All treatment options were discussed and a decision was made to proceed with sliding hip screw fixation. Case was also discussed with orthopedic joints colleagues who agreed with this treatment option due
to the minimally displaced nature of the fracture. The risks include, but are not limited to, bleeding requiring transfusion, infection, need for reoperation, nerve or blood vessel damage, anesthetic risks, need for further surgery, continued pain,
blood clots in the legs, heart attack, stroke, , nerve injury, malunion, nonunion, avascular necrosis and continued pain. They understood the risks and elected to proceed.
PROCEDURE IN DETAIL: The patient was identified in the preoperative holding area. The surgical site was appropriately marked. The patient was then brought to the operating room. General anesthesia was achieved. The patient was given routine
preoperative intravenous antibiotics. The patient was then appropriately positioned on the fracture table. Xrays were obtained to appropriately visualize the right femoral neck on the AP and lateral views. The fracture was closed reduced by
manipulating the leg on the fracture table. The patient was prepped and draped in the usual sterile manner. A preoperative surgical time-out was taken and the procedure was initiated.
An incision was made at the lateral femur starting just inferior to the greater trochanter and extending distally. The IT band and the vastus lateralis fascia were split. The muscle was then bluntly dissected to reach the lateral femur. Once the
femur was exposed, a guidepin was introduced into the femoral neck via the pin guide. Once appropriate position of the pin was confirmed on fluoroscopy, a measurement was obtained. A drill was introduced over the guidepin under fluoroscopic
guidance. Next, the sliding screw was placed over the guidepin under fluoroscopic guidance. A 3-hole plate was then introduced over the sliding screw and impacted into place. The distal most hole of the plate was drilled and a screw was placed to
secure the plate to the bone. The guidepin was removed. The other 2 holes of the plate were then drilled and screws were applied. All screws were final tightened. Next, the compression screw was introduced over the sliding hip screw to compress
across the fracture site. Final x-rays were obtained. The incision was then copiously irrigated. Muscle fascia was closed with 0 Vicryl suture. The IT band was closed using #1 stratafix suture. The subcutaneous tissues were closed in layered
fashion using 0 and 2-0 Vicryl suture. Bia were applied at the skin. Sterile dressing was applied. The patient tolerated the procedure well with no immediate complications.
Cassia Arredondo D.O.
Orthopedic Surgery
--- NOTE | 2023-06-18 19:36 | PTCARENOTE ---
Patient with minimal participation in care this shift; Refusing to have heels off-loaded, refusing to participate in turns; Patient educated on importance of off-loading heels and shifting weight to prevent pressure associated injuries; Patient
educated on importance of sitting up in bed and taking deep breaths including coughing and deep breathing to promote pulmonary hygiene; Patient with poor appetite and hypoglycemic this morning, patient denied symptoms of hypoglycemia, fruit juice
given with improvement in blood glucose, PO intake encouraged; Patient encouraged throughout shift to participate in care
[2023-06-18 21:34] VITALS: BP 138/92
[2023-06-18] MEDS: ROXICODONE 10 MG PO (21:44)
[2023-06-18 22:19] LABS: Glucose - Point of Care 226 mg/dl (70-99)
[2023-06-18] MEDS: LEVEMIR 0.200000000000000011 UNITS SC (22:21)
[2023-06-18] MEDS: MELATONIN 10 MG PO (22:21)
[2023-06-18 22:35] VITALS: BP 124/66
[2023-06-19] MEDS: DILAUDID 0.25 MG IV ×4 (01:50→21:10)
[2023-06-19] MEDS: FLUSH (NSS) 2 FLUSH IV ×4 (01:50→21:10)
[2023-06-19] MEDS: ROXICODONE 15 MG PO ×5 (04:21→22:31)
[2023-06-19 05:34] LABS: Hematocrit 28.1 % (39.0-52.0); Mean Corp Hgb Conc. 35.6 g/dL (33.0-37.0); Mean Corpuscular Hgb 31.3 pg (27.0-31.0); Mean Corpuscular Volume 88.1 fL (80.0-94.0); Mean Platelet Volume 10.8 fL (7.4-10.4); Platelet Count 97 10^3/uL (130-400); Red Blood Cell Count 3.19 10^6/uL (4.70-6.10); Red Cell Dist. Width 14.1 % (11.5-14.5); White Blood Cell Count 8.2 10^3/uL (4.8-10.8)
[2023-06-19 05:57] LABS: Blood Urea Nitrogen 32 mg/dl (9-20); Calcium 8.3 mg/dl (8.4-10.2); Carbon Dioxide 28 mmol/L (22-30); Chloride 106 mmol/L (98-107); Estimated Creatinine Clearance 57 ml/min; Glucose 131 mg/dl (70-99); Sodium 135 mmol/L (135-145); eGFR 57.18
--- NOTE | 2023-06-19 06:00 | PTCARENOTE ---
pt. unmotivated to participate in care overnight. Tried to educate pt. about importance of stool softeners while taking opiate pain medication, pt. still declining stool softeners. Attempted to educate pt. on ambulation s/p orthopedic surgery but
pt. cited too much pain to get up overnight and stated he'd just use the urinal instead. Pain meds given frequently - see MAR. Pt. also upset he's not getting IV Dilaudid as much/frequently as before, educated as to why but pt. seemed unreceptive to
teachings.
[2023-06-19 07:43] LABS: Glucose - Point of Care 89 mg/dl (70-99)
[2023-06-19 07:53] VITALS: BP 115/71
[2023-06-19] MEDS: NOVOLOG FLEXPEN-LOW RESISTANCE SC ×3 (07:57→17:38)
[2023-06-19] MEDS: ASPIRIN 325 MG PO ×2 (08:45→21:08)
[2023-06-19] MEDS: PROGRAF 3 MG PO ×2 (08:46→21:07)
[2023-06-19] MEDS: MYFORTIC DELAYED REL. 180 MG PO ×2 (08:46→21:07)
--- NOTE | 2023-06-19 08:49 | W.PN.ORTHO ---
Today's Communication / Plan
-
63 yo M POD2 right hip DHS w/ Dr. Arredondo
--Patient may be WBAT to RLE with assistive device. We appreciate the assistance of PT/OT.
--Recommend ASA 325 mg BID x30 days post-op for DVT ppx.
--Continue current pain management regimen. Ice and elevation for edema control.
--Aquacel to remain in place until 7-10 days post-op. Staple removal at 2 weeks post-op.
--Case management consult for discharge planning.
--Orthopedics will follow peripherally; plan for outpatient f/u 2 weeks for wound check; [phone].
Assessment
.
Distal Motor Intact: Yes
Dressing:
Clean, dry and intact.
Plan
.
Surgery / Date: ORIF R hip, Maria Elena, 06/17/23
Activity:
Out of bed.
PT/OT
Subjective
.
.:
Patient resting. Reports difficulty with pain control
Vital Signs and Labs
.
Vital Signs and Labs:
Lab Results
06/19/23 05:03
06/19/23 05:03
Temp Pulse Resp BP Pulse Ox
98.1 F 90 18 115/71 97
06/19/23 07:53 06/19/23 07:53 06/19/23 07:53 06/19/23 07:53 06/19/23 07:53
PT 13.6 Sec (11.4-14.6) 06/16/23 10:50
INR 1.06 06/16/23 10:50
[2023-06-19 09:20] VITALS: BP 130/71; BP 139/68; PULSE 98; PULSE 99; O2SAT 98; O2SAT 99
--- NOTE | 2023-06-19 09:40 | W.PN.HOSP.TC ---
Addendum entered and electronically signed by Dary Arechiga MD 06/19/23 10:15:
Sugar low this morning therefore we will change Lantus insulin to 15 units from 20 units.
Encourage consistent PO intake
Original Note:
Today's Communication/Plan
-
Pain control
PT OT
Bowel regimen
Bladder scan
Nephrology eval
Follow labs
Assessment / Plan
Assessment / Plan
CVS: S1-S2 normal
Chest: CTA B/L
Abdomen: Soft, NT / Bowel sounds present
Extremities: Right hip- No bleeding. Slight edema .
#Traumatic Right Hip Fracture (Slipped in the shower and fell)
Acute blood loss anemia from surgery
-s/p ORIF 06/18/23
-WBAT to RLE with assistive device.�
-Pain Meds - oral oxycodone for severe pain with Dilaudid for breakthrough
-Patient was on oxycodone prior to arrival prescribed by primary for chronic back pain
-Patient not participating with PT OT due to excessive pain
-ASA 325 mg BID x30 days post-op for DVT ppx per ortho recommendation-(Add pepcid)
-Aquacel to remain in place until 7-10 days post-op. Staple removal at 2 weeks post-op.
-Ortho follow up in 2 weeks
-Transfuse hemoglobin less than 7
#Left side Roator cuff inj
-Patient stated of injuring rotator cuff
-Ortho following
#Coronary Artery Disease with stent
-No chest pain or SOB
-EKG on admission sinus rhythm no ischemia
-Asa
-Not on other meds as OP
#Left Kidney/Liver Transplant in 2021 for Cirrhosis secondary to Hepatitis C-at [facility] February 26, 2022
-Also reported history of hepatic steatosis
-Continue mycophenolate and tacrolimus
-Check tacrolimus level
-LFTs were normal. Elevated creatinine.
-Check bladder scan
-Nephrology evaluation
# History of hepatitis C-treated
#Diabetes Mellitus, Type II
-Hemoglobin A1c 7.4
-Monitor sugars and continue coverage insulin
-Encourage oral intake.
-Lantus 24 units at nighttime as outpatient with sliding scale
#Mild hyponatremia
-Monitor DJD
# DJD -C3-C4, C5-C6
# Urine drug screen positive for fentanyl
#DVT proph: SCDs
#Code Status: Full Code
D/W RN
Anticipated Discharge: Within 24 hours
Subjective/Interval History
-
Date of Service: June 19, 2023
Objective Data
-
Labs:
Laboratory Results
06/19/23
05:03
WBC 8.2
Hgb 10.0 L
Hct 28.1 L
Plt Count 97 L
Sodium 135
Potassium 4.0
Chloride 106
Carbon Dioxide 28
BUN 32 H
Creatinine 1.4 H
Glucose 131 H
Calcium 8.3 L
Vital Signs:
Vital Signs
Temp Pulse Resp BP Pulse Ox
98.1 F 90 18 115/71 97
06/19/23 07:53 06/19/23 07:53 06/19/23 07:53 06/19/23 07:53 06/19/23 07:53
I&O
06/18/23 06/19/23 06/20/23
06:59 06:59 06:59
Intake Total 1200 / 1200
Output Total 1850 / 1850
Balance -650 / -650
--- NOTE | 2023-06-19 10:01 | CM ---
Addendum entered by Nayely Wade RN 06/19/23 12:25:
[facility] able to accept the patient.
Plan: Discharge to [facility] when medically stable.
Call report to: [phone]
Fax report to: [phone]
Medical necessity and transport form on chart.
Original Note:
Reviewed the chart notes and spoke with the patient at the bedside. IMM signed and placed on the chart. PT recommending SNF. Referrals were sent. Willing to accept the patient are [facility] and [facility]. Discussed with the patient
the facilities. Patient has been to [facility] in the past. Patient agreeable to [facility]. No precert required. Voice message left for Aylin admissions liaison for [facility] regarding the patient's agreement for her facility. CM
continues to be available to patient/family and is monitoring medical plan for needs at discharge.
Plan: Discharge to [facility] when medically stable.
[2023-06-19] MEDS: PEPCID 20 MG PO ×2 (10:11→21:08)
[2023-06-19] MEDS: MIRALAX 17 GRAMS PO (10:11)
[2023-06-19] MEDS: MILK OF MAGNESIA 30 ML PO (10:11)
[2023-06-19] MEDS: SENOKOT 17.1999999999999993 MG PO (10:11)
[2023-06-19 10:13] LABS: Glucose - Point of Care 78 mg/dl (70-99)
--- NOTE | 2023-06-19 10:16 | W.PN.UPDATE ---
Update Note
Progress Note Update
Saw patient again as he felt he could not see when his sugar was 78. Patient drank some juice and it is getting better. Advised to eat consistently. He still has not had his breakfast
Also discussed about dropping Lantus to 15 units tonight.
[2023-06-19 10:35] LABS: Iron 41 ug/dl (49-181)
[2023-06-19 10:38] VITALS: BP 130/71; PULSE 99; O2SAT 98
[2023-06-19 10:44] LABS: Percent Saturation 21 % (20-50); Total Iron Binding Capacity 195 ug/dl (261-462)
[2023-06-19 12:14] LABS: Glucose - Point of Care 109 mg/dl (70-99)
[2023-06-19 12:21] LABS: Vitamin D, 25-OH*** 19.9 ng/mL (30-80)
[2023-06-19 12:47] LABS: Vitamin B12 320 pg/ml (239-931)
--- NOTE | 2023-06-19 12:58 | W.CON.NEPH ---
Consultation
-
Date/Time Consultation Requested: June 19, 2023 9 AM
Date/Time Consultation Performed: June 19, 2023 12:00 noon
Requesting Provider: Hawk
Performing Provider: Nestor
Reason for Consultation: ROXY/renal transplant
Medical History
-
Chief Complaint: ROXY/kidney transplant
History of Present Illness:
The patient is a 63-year-old male with a past medical history of diabetes maintained on insulin therapy. He underwent dual kidney liver transplant in 2021 at [facility] for his hepatitis C induced cirrhosis and subsequent renal failure. He is
currently maintained on mycophenolate and tacrolimus for his immunosuppression regimen, he also has a prior history of coronary artery disease and has undergone previous stenting procedures and is maintained on aspirin therapy. He remains
chronically on oxycodone for opioid dependent pain. He presented to the hospital 3 days prior after he sustained a slip and fall with subsequent right hip fracture for which he underwent ORIF on 06/18/2023. On presentation to the hospital his
creatinine was at 1.0. Now escalated to 1.4 nephrology was asked to see the patient for acute kidney injury in the setting of his dual kidney and liver transplant.
Past Medical History
Kidney liver transplant 2021 at [facility]
Hepatitis C
Coronary artery disease with prior history of stenting
Insulin requiring diabetes
Chronic opioid dependence
Social History
Ex tobacco quit 14 years ago
Family History
No chronic kidney disease
Allergies / Home Medications
Allergy/AdvReac Type Severity Reaction Status Date / Time
No Known Allergies Allergy Unverified 06/16/23 10:49
Medication Instructions Recorded Confirmed Type
aspirin 81 mg tablet,delayed 81 mg PO DAILY 06/16/23 06/16/23 History
release
insulin detemir U-100 100 unit/mL 24 unit SC HS 06/16/23 06/16/23 History
(3 mL) subcutaneous pen (Levemir
FlexPen)
insulin lispro 100 unit/mL 0 sliding scale dose SC DIRECTED 06/16/23 06/16/23 History
subcutaneous pen
melatonin 12 mg tablet 36 mg PO HS 06/16/23 06/16/23 History
melatonin 3 mg tablet 9 mg PO HS 06/16/23 06/16/23 History
mycophenolate sodium 180 mg 180 mg PO Q12H 06/16/23 06/16/23 History
tablet,delayed release
oxycodone 10 mg tablet 10 mg PO .SEE BELOW PRN 06/16/23 06/16/23 History
severe pain
tacrolimus 1 mg capsule, 3 mg PO Q12H 06/16/23 06/16/23 History
immediate-release
Review of Systems
-
History Source: Patient
All other systems: Negative unless noted
Constitutional: No Symptoms
EENT: No Symptoms
Respiratory: No Symptoms
Cardiac: No Symptoms
Abdomen/GI: No Symptoms
: Difficulty Voiding
Musculoskeletal: Other (Chronic back and knee pain, postsurgical right hip pain)
Skin: No Symptoms
Neurological: No Symptoms
Endocrine: No Symptoms
Hematologic/Lymphatic: No Symptoms
Physical Exam
Vital Signs
Vital Signs
Temp Pulse Resp BP Pulse Ox
98.1 F 90 18 115/71 97
06/19/23 07:53 06/19/23 07:53 06/19/23 07:53 06/19/23 07:53 06/19/23 07:53
Lab Results
06/19/23 05:03
06/19/23 05:03
WBC 8.2 10^3/uL (4.8-10.8) 06/19/23 05:03
RBC 3.19 10^6/uL (4.70-6.10) L 06/19/23 05:03
Hgb 10.0 g/dL (13.0-18.0) L 06/19/23 05:03
Hct 28.1 % (39.0-52.0) L 06/19/23 05:03
Plt Count 97 10^3/uL (130-400) L 06/19/23 05:03
Sodium 135 mmol/L (135-145) 06/19/23 05:03
Potassium 4.0 mmol/L (3.5-5.1) 06/19/23 05:03
Chloride 106 mmol/L (98-107) 06/19/23 05:03
Carbon Dioxide 28 mmol/L (22-30) 06/19/23 05:03
BUN 32 mg/dl (9-20) H 06/19/23 05:03
Creatinine 1.4 mg/dL (0.7-1.3) H 06/19/23 05:03
eGFR 57.18 06/19/23 05:03
Glucose 131 mg/dl (70-99) H 06/19/23 05:03
Calcium 8.3 mg/dl (8.4-10.2) L 06/19/23 05:03
Albumin 4.0 g/dl (3.5-5.0) 06/16/23 10:50
Physical Exam
General: AOx3, No Distress and Nontoxic
HEENT: PERRL, EOMI, Anicteric, Conjunctivae Clear, Ear/Nose Intact, Hearing Normal, Oropharynx Clear/Moist, Trachea Midline, No JVD and No Thyromegaly
Respiratory: Clear and Normal Excursion
Cardiac: S1/S2 and Regular Rate/Rhythm
Breast: Deferred by me
Abdomen: Soft, Nontender, Nondistended and Normal Bowel Sounds
Rectal: Deferred by Provider
Genito-urinary: No Costovertebral Tender
Musculoskeletal: No Clubbing, No Cyanosis and No Edema
Skin: No Rash
Neuro: Nonfocal/Grossly Intact, CN II-XII and Strength (3 out of 5 right lower extremity, 5 out of 5 other extremities)
Hematologic/Lymphatic: No Cervical Lymphadenopathy, No Submandibular Lymphadenopathy and No Supraclavicular Lymphadenopathy
Psych: Mood/afflect pleasant and Insight/judgement good
Assessment/Plan
-
Impression:
ROXY
Traumatic Right Hip Fracture (Slipped in the shower and fell)
Left side Royator cuff inj
Coronary Artery Disease with stents
Left Kidney/Liver Transplant in 2021 for Cirrhosis secondary to Hepatitis C-at [facility] February 26, 2022
Diabetes Mellitus, Type II no history of diabetic neuropathy or retinopathy
Chronic back pain requiring chronic opioid dependence
DJD -C3-C4, C5-C6
Urine drug screen positive for fentanyl
Anemia
Thrombocytopenia
Plan:
Acute kidney injury etiology includes prerenal stimulus from hypotension and/or anemia but likely due to possible obstructive uropathy given difficulty with voiding postoperatively
-Bladder scan protocol implemented
-Currently hemodynamically stable
-Will obtain urine sodium and urine creatinine to assess for prerenal stimulus
-Tacrolimus trough pending
Renal liver transplant:
-Maintain current dosage of mycophenolate and tacrolimus
Data Reviewed
-
Radiology: Report Reviewed by me (CT scan of head and right lower extremity reviewed)
Medical Tests (Nuc Med, Echo etc): Other (EKG report personally reviewed noted sinus rhythm at [address] with [address] or T wave abnormalities)
Labs: Labs Reviewed by me
[2023-06-19 15:04] VITALS: BP 112/65
[2023-06-19 16:28] LABS: Urine Albumin Trace (Neg - Trace); Urine Bilirubin Negative (Negative); Urine Character Clear (Clear); Urine Color Yellow; Urine Glucose Trace (Negative); Urine Ketone Trace (Negative); Urine Leukocyte Negative (Negative); Urine Nitrite Negative (Negative); Urine Occult Blood Negative (Negative); Urine Urobilinogen Negative (Neg - 1+)
[2023-06-19 17:19] LABS: Glucose - Point of Care 134 mg/dl (70-99)
[2023-06-19] MEDS: DRISDOL (VITAMIN D2) 50000 UNITS PO (17:41)
[2023-06-19] MEDS: VITAMIN B-12 1000 MCG PO (17:41)
[2023-06-19 19:11] LABS: Urine Sodium 95 mmol/L (30-90)
--- NOTE | 2023-06-19 19:42 | PTCARENOTE ---
at 1600-pt called for assistance to stand to use the urinal and void. pt assisted to stand at bedside w/RW and assist of 2. pt voided 100 ml dot urine with assistance. pt assisted to return to bed and pt bladder scan was 455 ml-pt refused
straight cath at this time. will observe.
[2023-06-19] MEDS: SENOKOT PO (21:14)
[2023-06-19] MEDS: MELATONIN 10 MG PO (22:32)
[2023-06-19 22:40] LABS: Glucose - Point of Care 117 mg/dl (70-99)
[2023-06-19] MEDS: LEVEMIR SC (22:41)
[2023-06-19 23:00] VITALS: BP 134/79
[2023-06-20] MEDS: DILAUDID 0.25 MG IV ×6 (00:35→22:39)
[2023-06-20] MEDS: FLUSH (NSS) 2 FLUSH IV ×2 (00:36→05:33)
[2023-06-20] MEDS: ROXICODONE 15 MG PO ×2 (02:41→20:10)
[2023-06-20 05:11] LABS: Hematocrit 28.7 % (39.0-52.0); Hemoglobin 10.3 g/dL (13.0-18.0); Mean Corp Hgb Conc. 35.9 g/dL (33.0-37.0); Mean Corpuscular Volume 86.4 fL (80.0-94.0); Mean Platelet Volume 10.4 fL (7.4-10.4); Platelet Count 108 10^3/uL (130-400); Red Blood Cell Count 3.32 10^6/uL (4.70-6.10); Red Cell Dist. Width 13.9 % (11.5-14.5); White Blood Cell Count 8.1 10^3/uL (4.8-10.8)
[2023-06-20 05:34] LABS: Blood Urea Nitrogen 27 mg/dl (9-20); Calcium 8.3 mg/dl (8.4-10.2); Carbon Dioxide 29 mmol/L (22-30); Chloride 100 mmol/L (98-107); Estimated Creatinine Clearance 62 ml/min; Glucose 132 mg/dl (70-99); Potassium 4.3 mmol/L (3.5-5.1); Sodium 135 mmol/L (135-145); eGFR > 60.00
--- NOTE | 2023-06-20 05:57 | PTCARENOTE ---
Pt. vomited 200ml of dark green emesis at 0545. Pt. did not eat dinner last night, states not having an appetite for dinner, and feeling generally unwell after lunch on 06/18 and believes the bowel meds he was given around 1000 on 06/18 made him ill.
Pt. declining prescribed zofran at this time and asking to let him get back to sleep. Will pass these events along in report.
--- NOTE | 2023-06-20 07:21 | W.PN.ORTHO ---
Today's Communication / Plan
-
PT/OT
Aspirin DVT prophylaxis
Weightbearing as tolerated
Assessment
.
Distal Motor Intact: Yes
Dressing:
Clean, dry and intact.
Plan
.
Surgery / Date: ORIF R hip, Maria Elena, 06/17/23
DVT Prophylaxis: Aspirin
Activity:
Out of bed.
PT/OT
Subjective
.
.:
Patient resting comfortably.
Vital Signs and Labs
.
Vital Signs and Labs:
Lab Results
06/20/23 04:24
06/20/23 04:24
Temp Pulse Resp BP Pulse Ox
97.9 F 97 18 134/79 97
06/19/23 23:00 06/19/23 23:00 06/19/23 15:04 06/19/23 23:00 06/19/23 23:00
PT 13.6 Sec (11.4-14.6) 06/16/23 10:50
INR 1.06 06/16/23 10:50
[2023-06-20 07:30] LABS: Glucose - Point of Care 147 mg/dl (70-99)
[2023-06-20] MEDS: NOVOLOG FLEXPEN-LOW RESISTANCE SC (07:34)
[2023-06-20] MEDS: ASPIRIN 325 MG PO ×2 (07:40→20:11)
[2023-06-20] MEDS: PROGRAF 3 MG PO ×2 (07:41→20:11)
[2023-06-20] MEDS: VITAMIN D3 (cholecalciferol) 50 MCG PO (07:41)
[2023-06-20] MEDS: MYFORTIC DELAYED REL. 180 MG PO ×2 (07:41→20:11)
[2023-06-20] MEDS: VITAMIN B-12 1000 MCG PO (07:41)
[2023-06-20] MEDS: MIRALAX PO (07:44)
[2023-06-20] MEDS: SENOKOT PO ×3 (07:44→20:08)
[2023-06-20] MEDS: PEPCID PO ×2 (07:44→20:07)
--- NOTE | 2023-06-20 07:45 | PTCARENOTE ---
Pt received from machinist 2nd shift RN. AAOx3 in bed. Pt refusing to take bowel regimen medications. Attempted to educated pt on risks associated with taking pain medications and not taking bowel meds post op. Pt states he is aware of risks and still
refuses to take bowel meds. Pt denies any nausea and vomiting at this time. Assessment documented. Neurovascular checks WDL.
[2023-06-20 07:52] VITALS: BP 104/63
[2023-06-20] MEDS: ZOFRAN 4 MG IV (09:05)
--- NOTE | 2023-06-20 10:08 | W.PN.HOSP.TC ---
Addendum entered and electronically signed by Dary Arechiga MD 06/20/23 17:00:
Patient did not give me permission to talk to his family
Addendum entered and electronically signed by Dary Arechiga MD 06/20/23 10:43:
Mild thrombocytopenia noted-getting better
Original Note:
Today's Communication/Plan
-
Bowel regimen
Discharge planning
Assessment / Plan
Assessment / Plan
CVS: S1-S2 normal
Chest: CTA B/L
Abdomen: Soft, NT / Bowel sounds present
Extremities: Right hip- Mild shadowing at the dressing, Slight edema .
#Traumatic Right Hip Fracture (Slipped in the shower and fell)
Acute blood loss anemia from surgery and fracture
-s/p ORIF 06/18/23
-WBAT to RLE with assistive device.�
-Pain Meds - oral oxycodone for severe pain with Dilaudid for breakthrough
-Patient was on oxycodone prior to arrival prescribed by primary for chronic back pain
-Patient not participating with PT OT due to excessive pain
-ASA 325 mg BID x30 days post-op for DVT ppx per ortho recommendation-(Added Pepcid)
-Aquacel to remain in place until 7-10 days post-op. Staple removal at 2 weeks post-op.
-Ortho follow up in 2 weeks
-Transfuse hemoglobin less than 7
-Patient may not be a great candidate for chronic opiates for pain management.
-He needs to follow-up with final touch up painter as outpatient.
#Left side Roator cuff inj
-Patient stated of injuring rotator cuff
-Ortho following
#Coronary Artery Disease with stent
-No chest pain or SOB
-EKG on admission sinus rhythm no ischemia
-Asa
-Not on other meds as OP
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
-Also reported history of hepatic steatosis
-Continue mycophenolate and tacrolimus
-Check tacrolimus level
-LFTs were normal. Elevated creatinine.
-Check bladder scan
-Nephrology evaluation
# History of hepatitis C-treated
#Diabetes Mellitus, Type II
-Hemoglobin A1c 7.4
-Monitor sugars and continue coverage insulin
-Encourage oral intake.
-Lantus 24 units at nighttime as outpatient with sliding scale
-Will do 15 units for now
#Mild hyponatremia
-Monitor DJD
# DJD -C3-C4, C5-C6
# Urine drug screen positive for fentanyl-not on med list
#DVT proph: Aspirin 325 twice daily per orthopedic recommendation (pharmacy to review)
#Code Status: Full Code
D/W RN
Discussed with case management
Patient was refusing bowel regimen per nursing. Yesterday morning he needed to take it out for we discussed about concerns with narcotics. Patient had nausea and wants vomited once last night. Will get an x-ray. I stressed the importance of
taking bowel regimen and that we cannot continue with narcotics if he does not have a bowel movement. Patient is aware about consequence of constipation.
He is also requesting to go to the rehab in [place] which I discussed with case management.
Anticipated Discharge: Today
Subjective/Interval History
-
Date of Service: June 20, 2023
Objective Data
-
Labs:
Laboratory Results
06/20/23
04:24
WBC 8.1
Hgb 10.3 L
Hct 28.7 L
Plt Count 108 L
Sodium 135
Potassium 4.3
Chloride 100
Carbon Dioxide 29
BUN 27 H
Creatinine 1.3
Glucose 132 H
Calcium 8.3 L
Vital Signs:
Vital Signs
Temp Pulse Resp BP Pulse Ox
98.0 F 87 16 104/63 100
06/20/23 07:52 06/20/23 07:52 06/20/23 07:52 06/20/23 07:52 06/20/23 07:52
I&O
06/19/23 06/20/23 06/21/23
06:59 06:59 06:59
Intake Total 1200 / 1200 840 / 840
Output Total 1850 / 1850 1150 / 1150 200 / 200
Balance -650 / -650 -310 / -310 -200 / -200
[2023-06-20] MEDS: CITROMA 300 ML PO (10:14)
[2023-06-20 11:11] LABS: Glucose - Point of Care 189 mg/dl (70-99)
--- NOTE | 2023-06-20 11:31 | CM ---
Reviewed the chart notes and spoke with the attending. The patient wants to discharge to [facility]. CM spoke with [facility] Admissions Liaison at [facility]. They can accept the patient today. Patient updated. CM continues to be
available to patient/family and is monitoring medical plan for needs at discharge.
Plan: Discharge to [facility] today.
Call report to: [phone]
Fax report to: [phone]
Medical and transport forms on the chart.
--- NOTE | 2023-06-20 11:42 | W.PN.NEPH.PH ---
Today's Communication / Plan
-
gentle IVF
Assessment/Plan
-
Impression:
ROXY
Traumatic Right Hip Fracture (Slipped in the shower and fell)
Left side Royator cuff inj
Coronary Artery Disease with stents
Left Kidney/Liver Transplant in 2021 for Cirrhosis secondary to Hepatitis C-at [facility] February 26, 2022
Diabetes Mellitus, Type II no history of diabetic neuropathy or retinopathy
Chronic back pain requiring chronic opioid dependence
DJD -C3-C4, C5-C6
Urine drug screen positive for fentanyl
Anemia
Thrombocytopenia
Plan:
Acute kidney injury etiology includes prerenal stimulus from hypotension and/or anemia but likely due to possible obstructive uropathy given difficulty with voiding postoperatively
-Bladder scan protocol implemented, last bladder scan 450cc with constipation
-Currently hemodynamically stable with mild improvement of cr to 1.3
Fena is 0.6, will try gentle IVF
-Tacrolimus trough pending
Renal liver transplant:
-Maintain current dosage of mycophenolate and tacrolimus
-
-
Date of Service: June 20, 2023
CC / HPI / ROS
-
Chief Complaint:
ROXY, s/p KL TXP
History of Present Illness:
cr slightly down to 1.3
BP are soft
bladder scan 450cc, voided 100cc only on 06/18
abd xray shows mod to large amount of stool
Review of Systems:
vomited once?
no active n/v
no cp or sob
pain in surgical hip
Labs
-
Labs:
WBC 8.1 10^3/uL (4.8-10.8) 06/20/23 04:24
RBC 3.32 10^6/uL (4.70-6.10) L 06/20/23 04:24
Hgb 10.3 g/dL (13.0-18.0) L 06/20/23 04:24
Hct 28.7 % (39.0-52.0) L 06/20/23 04:24
Plt Count 108 10^3/uL (130-400) L 06/20/23 04:24
Sodium 135 mmol/L (135-145) 06/20/23 04:24
Potassium 4.3 mmol/L (3.5-5.1) 06/20/23 04:24
Chloride 100 mmol/L (98-107) 06/20/23 04:24
Carbon Dioxide 29 mmol/L (22-30) 06/20/23 04:24
BUN 27 mg/dl (9-20) H 06/20/23 04:24
Creatinine 1.3 mg/dL (0.7-1.3) 06/20/23 04:24
eGFR > 60.00 06/20/23 04:24
Glucose 132 mg/dl (70-99) H 06/20/23 04:24
Calcium 8.3 mg/dl (8.4-10.2) L 06/20/23 04:24
Albumin 4.0 g/dl (3.5-5.0) 06/16/23 10:50
Physical Exam
-
Vital Signs:
Vital Signs
Temp Pulse Resp BP Pulse Ox
98.0 F 87 16 104/63 100
06/20/23 07:52 06/20/23 07:52 06/20/23 07:52 06/20/23 07:52 06/20/23 07:52
Cardiovascular:: Regular rate and rhythm
Respiratory:: Bilateral: CTA
Lung Excursion:: Normal
Abdomen:: Nontender and Soft
Extremity Edema:: None: Bilateral:
Mejia Catheter: No
[2023-06-20] MEDS: NOVOLOG FLEXPEN-LOW RESISTANCE 1 UNITS SC (12:17)
[2023-06-20] MEDS: NSS 1000 IV (12:18)
--- NOTE | 2023-06-20 13:20 | W.PN.UPDATE ---
Update Note
Progress Note Update
X ray noted.
Continue Mag citrate
[2023-06-20] MEDS: ROXICODONE 10 MG PO (13:51)
[2023-06-20 15:17] VITALS: BP 109/67
[2023-06-20 16:15] LABS: Glucose - Point of Care 210 mg/dl (70-99)
[2023-06-20] MEDS: NOVOLOG FLEXPEN-LOW RESISTANCE 2 UNITS SC (16:44)
[2023-06-20] MEDS: LEVEMIR 0.149999999999999994 UNITS SC (22:03)
[2023-06-20 22:04] LABS: Glucose - Point of Care 306 mg/dl (70-99)
[2023-06-20] MEDS: MELATONIN 10 MG PO (22:04)
[2023-06-20 23:00] VITALS: BP 102/61
[2023-06-21] VITALS (7 sets, daily range): BP systolic 86–115; BP diastolic 49–65; PULSE 89–92; O2SAT 100
--- NOTE | 2023-06-21 04:39 | PTCARENOTE ---
Addendum entered by Lida Villaseñor RN 06/21/23 05:34:
Pt refused static air overlay, SCD's and ambulation. Pt educated on need for each. Pt verbalized understanding and continued to refuse.
Original Note:
Pt requested pain medicine for R hip. BP was previously low. On reassessment BP was 86/49. TECHNICAL ASSISTANT made aware. TECHNICAL ASSISTANT spoke w patient, patient agreed to drink water. Patient verbalized understanding that pain medicine can drop his blood pressure and that he
was ok without pain medicine while talking to TECHNICAL ASSISTANT. No new orders noted.
--- NOTE | 2023-06-21 05:41 | PTCARENOTE ---
Pt educated on use of opioid pain medications worsening constipation. Pt verbalized understanding. Continues to refuse bowel meds. Assessment ongoing.
[2023-06-21] MEDS: ROXICODONE 15 MG PO ×3 (05:44→16:05)
[2023-06-21 08:14] LABS: Glucose - Point of Care 85 mg/dl (70-99)
[2023-06-21] MEDS: NOVOLOG FLEXPEN-LOW RESISTANCE SC ×2 (08:34→11:01)
[2023-06-21 09:52] LABS: Blood Urea Nitrogen 32 mg/dl (9-20); Calcium 8.4 mg/dl (8.4-10.2); Carbon Dioxide 30 mmol/L (22-30); Chloride 103 mmol/L (98-107); Estimated Creatinine Clearance 67 ml/min; Glucose 72 mg/dl (70-99); Potassium 4.2 mmol/L (3.5-5.1); Sodium 137 mmol/L (135-145); eGFR > 60.00
[2023-06-21] MEDS: ASPIRIN 325 MG PO (10:10)
[2023-06-21] MEDS: PROGRAF 3 MG PO (10:11)
[2023-06-21] MEDS: PEPCID 20 MG PO (10:11)
[2023-06-21] MEDS: MYFORTIC DELAYED REL. 180 MG PO (10:11)
[2023-06-21] MEDS: VITAMIN B-12 1000 MCG PO (10:12)
[2023-06-21] MEDS: VITAMIN D3 (cholecalciferol) 50 MCG PO (10:12)
[2023-06-21] MEDS: MIRALAX PO (10:15)
[2023-06-21] MEDS: SENOKOT PO (10:15)
--- NOTE | 2023-06-21 10:30 | PTCARENOTE ---
milk of molasses enema given with + large formed BM. pt assisted to BSC w/ RW and assistance of 1.
[2023-06-21 10:59] LABS: Glucose - Point of Care 140 mg/dl (70-99)
--- NOTE | 2023-06-21 11:24 | W.PN.NEPH.PH ---
Today's Communication / Plan
-
- continue to trend Cr
Assessment/Plan
-
Impression:
ROXY
Traumatic Right Hip Fracture (Slipped in the shower and fell)
Left side Royator cuff inj
Coronary Artery Disease with stents
Left Kidney/Liver Transplant in 2021 for Cirrhosis secondary to Hepatitis C-at [facility] February 26, 2022
Diabetes Mellitus, Type II no history of diabetic neuropathy or retinopathy
Chronic back pain requiring chronic opioid dependence
DJD -C3-C4, C5-C6
Urine drug screen positive for fentanyl
Anemia
Thrombocytopenia
Plan:
Acute kidney injury etiology includes prerenal stimulus from hypotension and/or anemia but likely due to possible obstructive uropathy given difficulty with voiding postoperatively
-Bladder scan protocol implemented, last bladder scan 450cc with constipation. now without Mejia and voiding well
-Currently hemodynamically stable with improvement of cr to 1.2
-s/p IVF
-Tacrolimus trough pending
Renal liver transplant:
-Maintain current dosage of mycophenolate and tacrolimus
-
-
Date of Service: June 21, 2023
CC / HPI / ROS
-
Chief Complaint:
ROXY, s/p KL TXP
History of Present Illness:
cr slightly down to 1.2
BP are soft
s/p enema with 875cc UOP
Review of Systems:
no active n/v
no cp or sob
pain in surgical hip
some lower blood pressures noted today
Labs
-
Labs:
WBC 8.1 10^3/uL (4.8-10.8) 06/20/23 04:24
RBC 3.32 10^6/uL (4.70-6.10) L 06/20/23 04:24
Hgb 10.3 g/dL (13.0-18.0) L 06/20/23 04:24
Hct 28.7 % (39.0-52.0) L 06/20/23 04:24
Plt Count 108 10^3/uL (130-400) L 06/20/23 04:24
Sodium 137 mmol/L (135-145) 06/21/23 08:52
Potassium 4.2 mmol/L (3.5-5.1) 06/21/23 08:52
Chloride 103 mmol/L (98-107) 06/21/23 08:52
Carbon Dioxide 30 mmol/L (22-30) 06/21/23 08:52
BUN 32 mg/dl (9-20) H 06/21/23 08:52
Creatinine 1.2 mg/dL (0.7-1.3) 06/21/23 08:52
eGFR > 60.00 06/21/23 08:52
Glucose 72 mg/dl (70-99) 06/21/23 08:52
Calcium 8.4 mg/dl (8.4-10.2) 06/21/23 08:52
Albumin 4.0 g/dl (3.5-5.0) 06/16/23 10:50
Physical Exam
-
Vital Signs:
Vital Signs
Temp Pulse Resp BP Pulse Ox
98.0 F 84 18 99/64 97
06/21/23 08:17 06/21/23 08:17 06/21/23 08:17 06/21/23 08:17 06/21/23 08:17
Cardiovascular:: Regular rate and rhythm
Respiratory:: Bilateral: Coarse
Lung Excursion:: Normal
Abdomen:: Nontender and Soft
Bowel Sounds:: Normal
Extremity Edema:: None: Bilateral:
Mejia Catheter: No
--- NOTE | 2023-06-21 11:29 | CM ---
IMM signed and placed on the chart. Patient is for discharge to [facility] today. CM continues to be available to patient/family and is monitoring medical plan for needs at discharge.
Plan: Discharge to [facility] today.
Call report to: [phone]
Fax report to: [phone]
Medical and transport forms on the chart.
--- NOTE | 2023-06-21 11:48 | W.PN.HOSP.TC ---
Today's Communication/Plan
-
Discharge
Assessment / Plan
Assessment / Plan
CVS: S1-S2 normal, short systolic murmur at apex
Chest: CTA B/L
Abdomen: Soft, NT / Bowel sounds present
Extremities: Right hip- Mild shadowing at the dressing, unchanged
Posterior scalp staple
#Traumatic Right Hip Fracture (Slipped in the shower and fell)
Acute blood loss anemia from surgery and fracture
-s/p ORIF 06/18/23
-WBAT to RLE with assistive device.�
-Pain Meds - oral oxycodone for pain
-Patient was on oxycodone prior to arrival prescribed by primary for chronic back pain
-ASA 325 mg daily x30 days post-op for DVT ppx per ortho recommendation-(Added Pepcid-Discussed with patient.)
-Patient states that he gets nauseous with aspirin. Also his platelets are slightly on the low side therefore I discussed with Dr. Arredondo-who recommended commended to change to daily aspirin.
-Aquacel to remain in place until 7-10 days post-op. Staple removal at 2 weeks post-op.
-Ortho follow up in 2 weeks
-Patient may not be a great candidate for chronic opiates for pain management.
-He needs to follow-up with crayon painter as outpatient.
#Left side Roator cuff inj happened a while ago as OP
- 3 weeks prior to admission confirmed by MRI as outpatient per patient
-He can't remember where he had MRI
-Ortho follow up as OP
-Able to use walker
#Coronary Artery Disease with stent
-No chest pain or SOB
-EKG on admission sinus rhythm no ischemia
-Asa-discussed with the patient that he can go back to 81 mg of aspirin once he completes the 1 month of 325 mg.
-Not on other meds as OP
-Discussed about follow-up with cardiology
# Short systolic heart murmur-patient stated that he has always had that. Advised to follow-up with his flower cheniller.
#Left Kidney/Liver Transplant in 2021 for Cirrhosis secondary to Hepatitis C-at [facility] February 26, 2022
-Also reported history of hepatic steatosis
-Continue mycophenolate and tacrolimus
-Tacrolimus level 5.0
-LFTs normal. creatinine better
-Checked with GI. Okay to use Tylenol up to 4 g with liver transplant-patient states that he will not take Tylenol
-Nephrology evaluation appreciated
# History of hepatitis C-treated
#Diabetes Mellitus, Type II
-Hemoglobin A1c 7.4
-Monitor sugars and continue coverage insulin
-Encourage oral intake.
-Lantus 24 units at nighttime as outpatient with sliding scale
-Will do 14 units for now
-Isolated elevated sugar noted
#Mild hyponatremia
-Monitor DJD
# DJD -C3-C4, C5-C6
# IVC filter-Placed 4 years ago per patient
# Urine drug screen positive for fentanyl-not on med list
#Ex Smoker
#DVT proph: Aspirin 325 daily per today.
#Code Status: Full Code
D/W RN
Discussed with case management at bed side
Patient very angry when discussing any of his medical conditions. He had refused routine bowel regimen despite discussing about constipation, bowel obstruction. He thinks bowel regimen makes him nauseous.
Today he had a large bowel movement with an enema.
I again stressed the importance of taking bowel regimen while on narcotics.
He also has issues taking aspirin. We discussed about recommendations from orthopedics about blood clot prevention. Patient stated that he has a filter therefore he will not get blood clots. Chances of developing PE on can be life-threatening.
Patient abruptly cut me off and said that 'get me out of here I do not want to discuss about this anymore.'
He appeared to be short tempered when discussing his medical conditions. Cuts me off.
Patient is not very forthcoming regarding his history, not interested in detail conversations.
He does not want me to talk to anyone in his family to update.
Patient told me he is from [place] but he is in this area because his daughter lives in [place].
ER record states that he fell in a motel.
Time spent 45 min
Anticipated Discharge: Today
Subjective/Interval History
-
Date of Service: June 21, 2023
Objective Data
-
Labs:
Laboratory Results
06/21/23
08:52
Sodium 137
Potassium 4.2
Chloride 103
Carbon Dioxide 30
BUN 32 H
Creatinine 1.2
Glucose 72
Calcium 8.4
Vital Signs:
Vital Signs
Temp Pulse Resp BP Pulse Ox
98.0 F 84 18 99/64 97
06/21/23 08:17 06/21/23 08:17 06/21/23 08:17 06/21/23 08:17 06/21/23 08:17
I&O
06/20/23 06/21/23 06/22/23
06:59 06:59 06:59
Intake Total 840 / 840 800 / 800
Output Total 1150 / 1150 1075 / 1075
Balance -310 / -310 -275 / -275
--- NOTE | 2023-06-21 12:20 | W.DS.TRANS ---
Addendum entered and electronically signed by Dary Arechiga MD 06/21/23 17:26:
Dictation- [id number]
Original Note:
DC Summary - Senior Cyber Intelligence Analyst
-
Discharge Instructions:
Discharge Diagnosis/Procedures Traumatic right hip fracture, anemia, chronic
left side rotator cuff injury, coronary disease,
history of kidney and liver transplant at
[facility] in 2021, history of hepatitis C ,
diabetes, DJD C spine, IVC filter, constipation,
vitamin D deficiency
Diet Diabetic, Carb Controlled
Driving Restrictions No driving
Blood Work CBC BMP 3 to 4 days. B12 levels in 1 month.
TSH level as OP.
Other Services OT,PT
Instructions:
Stand-Alone Forms:
Changes to Home Medications: Yes
Discharge Medications:
DC Medications w/original date entered in [employer]
Insulin Detemir Levemir [Levemir] 14 units As Directed mls/hr SC HS Diabetes 06/21/23
aspirin 325 mg tablet 325 mg PO DAILY Blood clot prevention/tx #0 tabs 06/21/23
cholecalciferol (vitamin D3) 50 mcg (2,000 unit) tablet 50 mcg PO DAILY Supplement #0 tabs 06/21/23
cyanocobalamin (vitamin B-12) 1,000 mcg tablet 1,000 mcg PO DAILY Supplement #0 tabs 06/21/23
docusate sodium 100 mg capsule 100 mg PO BID Constipation #0 caps 06/21/23
famotidine 20 mg tablet 20 mg PO BID Gastrointestinal issue #0 tabs 06/21/23
insulin lispro 100 unit/mL subcutaneous pen 0 sliding scale dose SC DIRECTED Diabetes #0 mL 06/21/23
melatonin 5 mg tablet 10 mg PO HS Sleep #0 tabs 06/21/23
mycophenolate sodium 180 mg tablet,delayed release 180 mg PO Q12H transplant #0 tabs 06/21/23
oxycodone 10 mg tablet 10 mg PO Q4HPRN PRN mod pain #0 tabs 06/21/23
oxycodone 15 mg tablet 15 mg PO Q4HPRN PRN Sev pain #20 tabs 06/21/23
polyethylene glycol 3350 17 gram oral powder packet (HealthyLax) 17 g PO DAILY Constipation #0 ea 06/21/23
sennosides 8.6 mg tablet (Senna Laxative) 17.2 mg PO BID Constipation #0 tabs 06/21/23
tacrolimus 1 mg capsule, immediate-release 3 mg PO Q12H Transplant #0 caps 06/21/23
Home Medication Changes
Melatonin dose changed
Oxycodone dose changed
Senokot, MiraLAX, Colace are new
Levemir dose changed
Aspirin dose changed
B12 and vitamin D are new
Pending Results: No
--- NOTE | 2023-06-22 10:20 | W.[place]-PDMP ---
[place]PD[place]
-
Checked the [place]- Prescription Drug Monitoring Program website, no red flags identified; safe to proceed with prescription while post op.
== END 2023-06-21 16:28 | DRG 481 ==
LOC: 2 SOUTH 14:02
PROVIDERS: Hospitalist; Physician Assistant Medical; ADMITTING PHYSICIAN Hospitalist; ATTENDING PHYSICIAN Hospitalist; CONSULT PHYSICIAN Orthopaedic Surgery; EMERGENCY PHYSICIAN Emergency Medicine; FAMILY PHYSICIAN Family Medicine; OTHER PHYSICIAN Specialist
PROC: 0QS604Z Reposition Right Upper Femur with Internal Fixation Device, Open Approach (ICD-10-PCS; 2023-06-18)
DX: S72.011A Unspecified intracapsular fracture of right femur, initial encounter for closed fracture (principal); D62 Acute posthemorrhagic anemia; D84.821 Immunodeficiency due to drugs; Z94.4 Liver transplant status; Z59.01 Sheltered homelessness; F11.20 Opioid dependence, uncomplicated; T86.19 Other complication of kidney transplant; N17.9 Acute kidney failure, unspecified; E87.1 Hypo-osmolality and hyponatremia; I25.10 Atherosclerotic heart disease of native coronary artery without angina pectoris; N18.9 Chronic kidney disease, unspecified; E11.22 Type 2 diabetes mellitus with diabetic chronic kidney disease; Y83.0 Surgical operation with transplant of whole organ as the cause of abnormal reaction of the patient, or of later complication, without mention of misadventure at the time of the procedure; S01.01XA Laceration without foreign body of scalp, initial encounter; M47.812 Spondylosis without myelopathy or radiculopathy, cervical region; D69.6 Thrombocytopenia, unspecified; K76.0 Fatty (change of) liver, not elsewhere classified; G89.29 Other chronic pain; M50.31 Other cervical disc degeneration, high cervical region; E55.9 Vitamin D deficiency, unspecified; W18.2XXA Fall in (into) shower or empty bathtub, initial encounter; Y92.59 Other trade areas as the place of occurrence of the external cause; Y93.E1 Activity, personal bathing and showering; Z79.82 Long term (current) use of aspirin; Z79.4 Long term (current) use of insulin; Z79.624 Long term (current) use of inhibitors of nucleotide synthesis; Z95.5 Presence of coronary angioplasty implant and graft; Z79.621 Long term (current) use of calcineurin inhibitor; Z79.69 Long term (current) use of other immunomodulators and immunosuppressants; Z86.19 Personal history of other infectious and parasitic diseases; Z87.891 Personal history of nicotine dependence; Z95.828 Presence of other vascular implants and grafts; K59.00 Constipation, unspecified
CPT/HCPCS: 12001; 70450; 72125; 73502; 73700; 74018; 76000; 80048; 80053; 80197; 80306; 80307; 81003; 82306; 82570; 82607; 82728; 82962; 83036; 83540; 83550; 84300; 85025; 85027; 85610; 85730; 86850; 86900; 86901; 93005; 96374; 96375; 96376; 97116; 97162; 97166; 97530; 97535; 99285

== ENCOUNTER 2023-08-15 21:21 | Inpatient (IN) | payer MEDICARE, OTHER, SELFPAY ==
[2023-08-15 17:36] VITALS: BP 141/61
[2023-08-15 18:00] VITALS: BP 100/84
--- NOTE | 2023-08-15 18:26 | PHANOTE ---
08/15/2023, med rec tech, spoke to pt. to obtain their med. history; per pt., he gets some of his meds. through the mail from a pharmacy in [place] but he does not know the name of it.
--- NOTE | 2023-08-15 18:44 | ED.GENMED ---
History of Present Illness
General
Chief Complaint: Musculo-Skeletal Complaint
Source: patient
Exam Limitations: none
Time Seen by Provider: 08/15/23 18:43
Nursing documentation reviewed up to this point in time: agreed with
Travel History
Have you had any contact with someone who has COVID-19?: No
Do you have any symptoms of coronavirus? Fever > 100 degrees, chills, cough, shortness of breath, sore throat, loss of taste or smell, muscle aches, or headache?: No
History of Present Illness
History of Present Illness:
63-year-old male with history of IDDM, kidney transplant 2021, liver transplant 2021, cardiac stents 2021, R hip traumatic fracture with repair w plates and screws here on 06/18/23 then DC'd to rehab, discharged from rehab 2 days ago. Lives in his
car.
Patient states he's had pain in the right hip since discharge but it has become worse and now unable to bear weight due to pain.
Also developed blister on right heel which has broken and is malodorous.
Pt states he has lost 20 lbs since his surgery due to not eating at rehab due to horrible food
Denies fever/chills, denies n/v/d/c. Denies CP or SOB. Denies abdominal pain
Past History
Past History
ED Past Medical History: IDDM
ED Past Surgical History: Cardiac (For cardiac stents 2021) and Other (Liver transplant, kidney transplant 2021)
Social History
Tobacco: Non-smoker
Alcohol: None
Personal: Single
Living: homeless
Review of Systems
Review of Systems
Allergies reviewed?: Yes
All Other Systems: ROS reviewed and negative except as documented in HPI and ROS
Constitutional: Denies fever or chills
Respiratory: Denies trouble breathing
Cardiac: Denies chest pain
ABD/GI: Reports anorexia; Denies abdominal pain, nausea, vomiting or diarrhea
: Denies dysuria, difficulty voiding or urgency
Musculoskeletal: Reports other (pain right hip, chronic pain both knees)
Skin: Reports other (open blister right heel)
Neurological: Denies dizzy, headache or weakness
Endocrine: Denies polyuria or polydipsia
Phy Exam
Physical Exam
Physical Exam:
GENERAL: No acute distress. A&Ox3.
CONSTITUTIONAL: Afebrile.
EYES: Clear, conjunctivae normal
ENMT: moist mucus membranes, Pharynx nl
RESPIRATORY: Regular respirations, nonlabored, lungs clear.
CARDIOVASCULAR: Regular rate and rhythm, no murmurs, no rubs.
GI: Soft, nontender, normal BS
MUSCULOSKELETAL: Tender about right hip with large area erythema. Incision well healed. Well perfused.
SKIN: Warm, dry, pink. Right hip with large erythematous area, various patches of erythema in patches down the leg. Mild swelling of toes right foot.
Right heel with half dollar sized broken blister with small necrotic area, malodorous.
PSYCH: Normal mood and affect. Somewhat unkempt, interactive and appropriate
NEUROLOGIC: Awake, alert and oriented. No focal neurological deficits
Course
Orders/Labs/Results
Orders:
Orders
08/15/23 19:17
Hip, Right 2-3 Views [CR Hip - RT w/wo Pel 2-3 Vw*] Urgent
Comment:
Reason For Exam: pain, redness s/p hip replacement 06/17/23
Include a pelvis x-ray?: No
08/15/23 19:20
Complete Blood Count/With Diff Urgent
Comprehensive Metabolic Panel Urgent
Lactic Acid Q4H
Comment: CANCEL 2nd LACTIC ACID IF 1st LACTIC ACID IS LESS THAN 2
Blood Culture Q30M
MARIO Source: Blood/Venous
Specimen Description:
Calcaneus, Right 2 View [CR Heel/os Calcis - Right 2 Vw] Urgent
Comment:
Reason For Exam: open blister, small necrotic area, malodorous
08/15/23 19:37
Wound Culture [Wound/Abscess/Other Culture] Urgent
MARIO Source: Heel
Specimen Description: Right
Date Specimen was Collected: 08/15/23
Time Specimen was Collected: 19:22
08/15/23 19:43
0.9% Sodium Chloride 1000 ml [Nss] 1,000 ml IV BOLUS
Piperacillin/Tazo 3.375 Gram [Zosyn] 3.375 gram in 50 ml IV NOW
08/15/23 20:06
HYDROmorphone [Dilaudid] 0.5 mg IV NOW STA
08/15/23 20:25
Blood Culture Q30M
MARIO Source: Blood/Venous
Specimen Description:
08/15/23 20:51
Admit/Transfer Patient As Directed
Co-Sign Provider:
Level of Care: Inpatient admission
Assign to:: Medical/Surgical
Physician / Group: Ruben
Diagnosis: Intractable right hip pain status post recent ORIF for right hip fracture
Reason for Hospitalization: See progress note
Expected length of stay greater than two midnights?: Yes
ELOS- Estimated Length of Stay in days: 4
I certify the patient meets the requirements for IP care: Yes
08/15/23 20:52
Code Status As Directed
Resuscitation Status: Full Code
Abnormal Lab Results
08/15/23
19:20
RBC 3.40 L 10^6/uL
(4.70-6.10)
Hgb 10.0 L g/dL
(13.0-18.0)
Hct 27.7 L %
(39.0-52.0)
RDW 14.7 H %
(11.5-14.5)
Plt Count 124 L 10^3/uL
(130-400)
MPV 10.6 H fL
(7.4-10.4)
Abs Immat Gran (auto) 0.1 H 10^3/uL
(0-0.05)
Absolute Neuts (auto) 6.9 H 10^3/uL
(1.4-6.5)
Absolute Lymphs (auto) 0.9 L 10^3/uL
(1.2-3.4)
Immature Gran % 0.8 H %
(0-0.5)
Neutrophils % 81.4 H %
(42.2-75.2)
Lymphocytes % 10.3 L %
(20.5-51.1)
Sodium 133 L mmol/L
(135-145)
BUN 36 H mg/dl
(9-20)
Creatinine 1.5 H mg/dL
(0.7-1.3)
Glucose 266 H mg/dl
(70-99)
Total Bilirubin 1.7 H mg/dl
(0.2-1.3)
AST 10 L U/L
(17-59)
Total Protein 6.1 L g/dl
(6.3-8.2)
Albumin 3.4 L g/dl
(3.5-5.0)
08/15/23 19:20
08/15/23 19:20
Vital Signs
Initial and Last Documented VS:
Initial Vital Signs
Temp Pulse Resp BP Pulse Ox
98.7 F 100 18 141/61 100
08/15/23 17:36 08/15/23 17:36 08/15/23 17:36 08/15/23 17:36 08/15/23 17:36
Last Documented Vital Signs
Temp Pulse Resp BP Pulse Ox
98.7 F 95 18 111/62 98
08/15/23 17:36 08/15/23 21:30 08/15/23 21:30 08/15/23 21:00 08/15/23 21:30
MDM/Problems Addressed
Differential Diagnosis Includes:
Cellulitis RLE, infected blister heel, osteomyelitis,
MDM/Problems Addressed:
63-year-old male with history of IDDM, kidney transplant 2021, liver transplant 2021, cardiac stents 2021, R hip traumatic fracture with repair w plates and screws here on 06/18/23 then DC'd to rehab, discharged from rehab 2 days ago. Lives in his
car.
Patient states he's had pain in the right hip since discharge but it has become worse and now unable to bear weight due to pain.
Also developed blister on right heel which has broken and is malodorous.
Pt states he has lost 20 lbs since his surgery due to not eating at rehab due to horrible food
Denies fever/chills, denies n/v/d/c. Denies CP or SOB. Denies abdominal pain
Afebrile
Right hip with large erythematous area, various patches of erythema in patches down the leg.
Right heel with half dollar sized broken blister with small necrotic area, malodorous.
This very nice gentleman with unfortunate living conditions is well managed for his kidney and liver transplants through [facility], is compliant with his meds and states is doing well in that respect.
Since 2021 has been in and out of hospital so frequently he's been staying in his car. 'I lost everything.'
8:10 PM
CBC: No clinically significant abnormality, consistent with his chronic anemia
CMP: Mildly worsening kidney functions compared to results on 06/21/2023 most likely prerenal/dehydration
Concern for sepsis, cellulitis LLE, hip and heel
Blood cultures, wound culture pending
Plan: Admit
Hospitalist notified of admission.
*Critical Care Note
Total Time (30-74mins, 75-104mins- exclusive of procedures): Not Applicable
ED Attending Note
-
Portions of this chart may have been created with voice recognition software.� Occasional wrong word or��sound alike� substitutions may have occurred due to the inherent limitations of voice recognition software.
Discharge Plan
Departure
Patient Disposition: Admit
Date of Disposition: 08/15/23
Time of Disposition: 20:09
Admit to: Med/Surg
Presentation/result/management discussed w/ accepting MD/DO: Hospitalist
Condition: Fair
Discharge Problem:
Open wound of right heel, Cellulitis of right lower extremity, Right hip pain, History of liver transplant, History of kidney transplant, Diabetes mellitus, insulin dependent (IDDM), controlled, Homeless
Interventions
Interventions:
*Risk Screen - Suicide Last Done: 08/15/23 17:36
*General Assessment Last Done: 08/15/23 17:36
*Neglect/Abuse Screening Last Done: 08/15/23 17:36
ED-Musculoskeletal Assessment Last Done: 08/15/23 18:51
[2023-08-15 19:00] VITALS: BP 98/48
[2023-08-15 19:27] LABS: % Basophils 0.4 % (0-2); % Eosinophils 0.5 % (0-6); % Immature Granulocytes 0.8 % (0-0.5); % Lymphocytes 10.3 % (20.5-51.1); % Monocytes 6.6 % (1.7-9.3); % Neutrophils 81.4 % (42.2-75.2); Absolute Immature Granulocytes 0.1 10^3/uL (0-0.05); Absolute Lymphocytes 0.9 10^3/uL (1.2-3.4); Absolute Monocytes 0.6 10^3/uL (0.1-0.6); Absolute Neutrophils 6.9 10^3/uL (1.4-6.5); Hematocrit 27.7 % (39.0-52.0); Mean Corp Hgb Conc. 36.1 g/dL (33.0-37.0); Mean Corpuscular Hgb 29.4 pg (27.0-31.0); Mean Corpuscular Volume 81.5 fL (80.0-94.0); Mean Platelet Volume 10.6 fL (7.4-10.4); Nucleated Red Blood Cells % 0 % (-); Platelet Count 124 10^3/uL (130-400); Red Cell Dist. Width 14.7 % (11.5-14.5); White Blood Cell Count 8.5 10^3/uL (4.8-10.8)
[2023-08-15 19:38] LABS: Lactic Acid 0.7 mmol/L (0.7-2.0)
[2023-08-15 19:40] LABS: ALT (SGPT) < 10 U/L (0-50); AST (SGOT) 10 U/L (17-59); Albumin 3.4 g/dl (3.5-5.0); Alkaline Phosphatase 70 U/L (38-126); Blood Urea Nitrogen 36 mg/dl (9-20); Carbon Dioxide 24 mmol/L (22-30); Chloride 103 mmol/L (98-107); Glucose 266 mg/dl (70-99); Potassium 4.1 mmol/L (3.5-5.1); Sodium 133 mmol/L (135-145); Total Bilirubin 1.7 mg/dl (0.2-1.3); Total Protein 6.1 g/dl (6.3-8.2); eGFR 52.64
[2023-08-15] MEDS: NSS 1000 IV ×2 (20:18→22:44)
[2023-08-15] MEDS: DILAUDID 0.5 MG IV (20:18)
[2023-08-15] MEDS: ZOSYN 50 IV (20:23)
[2023-08-15 20:39] VITALS: BP 106/37
[2023-08-15 21:00] VITALS: BP 111/62
--- NOTE | 2023-08-15 21:01 | HPS.HSE ---
Family Physician
-
Family Physician: Geneva Lantigua
Chief Complaint
-
Right hip pain and right heel wound with pain
History of Present Illness
Patient had a right hip fracture for which she had ORIF in June of this year it was felt hospital. After that he was discharged to rehab he says after that he had to go to another rehab and got discharged 2 days ago as he ran out of days
apparently.
He is homeless and lives out of the car.
Since discharge out of rehab he started noticed right hip pain which got severe where he could not weight-bear. No trauma. He called 911 came to the hospital. His right hip wound is healed and clear. His right hip wound was very free as unscored
pain 9 out of 10.
While he was in the second rehab he started to develop a right heel wound with a blister. It is very painful. Apparently no drainage at home.
Denies any fever but was having chills.
History of renal and kidney transplant. On immunosuppressive medication. No recent infection. He is under care of the transplant team at [facility].
Medical History
Past Medical History
Past Medical History: Reports CAD, IDDM and Other (Kidney/renal transplant)
Additional Past Medical History:
Hepatitis C
Past Surgical History: Reports Cardiac (Stents), Orthopedic (Right hip ORIF) and Other (IVC)
Social History
Tobacco: Former Smoker
Alcohol: None
Drug: None
Family History
Family History: Not pertinent
Allergies / Home Medications
Allergies reflects when Allergies were last updated in [facility].
Home Medications with original date entered in [facility]
Allergy/Medication List:
Allergies
Allergy/AdvReac Type Severity Reaction Status Date / Time
No Known Allergies Allergy Unverified 06/16/23 10:49
Home Medications
aspirin 81 mg tablet,delayed release 81 mg PO DAILY 08/15/23
insulin lispro 100 unit/mL subcutaneous pen 0 sliding scale dose SC DIRECTED 08/15/23
mycophenolate sodium 180 mg tablet,delayed release 180 mg PO Q12H@799,199908/15/23
oxycodone 10 mg tablet 10 mg PO BID PRN severe pain 08/15/23
tacrolimus 1 mg capsule, immediate-release 3 mg PO Q12H@0800,199908/15/23
Review of Systems
-
A 12 point ROS was completed and negative except as noted: Yes
Physical Exam
Vital Signs
Vital Signs
Temp Pulse Resp BP Pulse Ox
98.7 F 98 26 106/37 99
08/15/23 17:36 08/15/23 20:39 08/15/23 20:39 08/15/23 20:39 08/15/23 19:30
Physical Exam
General: No Apparent Distress
HEENT: Moist mucous membranes
Respiratory: Clear
Cardiac: S1/S2 and Regular Rhythm
GI: Soft, Non Tender, Non Distended and Normal Bowel Sounds
Musculoskeletal: Other (Tenderness of the right hip joint on palpation and PROM both passive and active )
Skin: Other (Right heel pressure ulcer with open wound and surrounding cellulitis)
Neuro: AO x 3 and No Motor Deficits
Psych: Calm; No Confused
Laboratory Results
-
08/15/23 19:20
08/15/23 19:20
Laboratory Results
Lactic Acid 0.7 mmol/L (0.7-2.0) 08/15/23 19:20
Total Bilirubin 1.7 mg/dl (0.2-1.3) H 08/15/23 19:20
AST 10 U/L (17-59) L 08/15/23 19:20
ALT < 10 U/L (0-50) 08/15/23 19:20
Alkaline Phosphatase 70 U/L (38-126) 08/15/23 19:20
Data Reviewed
-
Lab Data: Labs Reviewed by me
Impression/Plan
-
Acute right hip pain-patient s/p ORIF right hip for fracture recently. His plain x-ray shows fracture line appears to be healed radiographically. No evidence of new fracture or displacement of hardware. Patient is quite symptomatic and raises
concern for possible infection especially being immunosuppressed. Will also consult orthopedics. Will discuss with Ortho regarding modalities for further imaging. In view of renal transplant and elevated creatinine we will hold on CT with IV
contrast.
Right heel pressure ulcer/wound with surrounding cellulitis-start on empirical antibiotics. Patient not toxic currently. Consult ID.
Acute renal insufficiency-patient creatinine 1.5 compared to recent discharge of 1.2 in June. Patient is homeless living out of the car. Unclear as to oral intake status. Will start on IV fluids and follow creatinine closely and consider
nephrology input if no improvement.
Kidney/liver transplant 2021-continue with her transplant medication. Tacrolimus level in June 2023 was 5.0.
Chronic vijbaj-hqtelthnnu-I&H stable
Chronic thrombocytopenia-platelets 124 stable
CAD status post prior stents-continue with aspirin. Not on any other cardiac medication.
Diabetes mellitus 2-on sliding scale insulin which I would continue here. Not on any oral hypoglycemic agent. Check hemoglobin A1c.
Full code
[2023-08-15 22:08] VITALS: BMI 21.3
[2023-08-15 22:15] VITALS: BP 144/79
--- NOTE | 2023-08-15 22:25 | PHA.VAN.IN ---
Assessment
- Assessment
Renal Function: Appears elevated from baseline (06/21/23 BASELINE SCR: 1.2)
Concomitant Antimicrobials: ZOSYN
- Previous Dosing Experience
Previous Regimen: NONE
Plan
- Plan
Initial / Loading Dose: 1500MG
Maintenance Regimen: DOSING BY RANDOM LEVELS
Monitoring: RANDOM VANCOMYCIN LEVEL 08/16/23 AM
Pharmacokinetics Vancomycin I
- -
Patient Age: 63
Patient Sex: Male
Vancomycin Day #: 1
Indication: Skin And Soft Tissue (HEEL WOUND)
Requesting Provider: MILLY
Height / Weight:
Height 5 ft 10 in
Actual Weight 71.4 kg
Pertinent Past Medical History: RENAL TRANSPLANT
- Vital Signs / Lab Results
Temp Pulse Resp BP Pulse Ox
98.7 F 102 19 144/79 100
08/15/23 22:15 08/15/23 22:15 08/15/23 22:15 08/15/23 22:15 08/15/23 22:15
Lab Results - Hematology
08/15/23
19:20
WBC 8.5
Lab Results - Chemistry
08/15/23
19:20
BUN 36 H
Creatinine 1.5 H
Albumin 3.4 L
08/15/23 08/15/23
19:20 23:30
Lactic Acid 0.7 Cancelled
Microbiology Results
08/15/23 19:37 Gram Stain - Preliminary
Heel - Right
[2023-08-15] MEDS: VANCOCIN 300 ML IV (22:44)
[2023-08-15] MEDS: VANCOCIN 300 MG IV (22:44)
[2023-08-15] MEDS: DILAUDID 0.25 MG IV (22:44)
[2023-08-16] MEDS: ZOSYN 50 IV ×4 (01:30→21:21)
[2023-08-16] MEDS: DILAUDID 0.25 MG IV ×5 (04:11→21:17)
[2023-08-16 07:00] VITALS: BP 145/76
[2023-08-16 07:11] LABS: Hemoglobin 9.3 g/dL (13.0-18.0); Mean Corp Hgb Conc. 35.8 g/dL (33.0-37.0); Mean Corpuscular Hgb 29.8 pg (27.0-31.0); Mean Corpuscular Volume 83.3 fL (80.0-94.0); Mean Platelet Volume 10.5 fL (7.4-10.4); Platelet Count 102 10^3/uL (130-400); Red Blood Cell Count 3.12 10^6/uL (4.70-6.10); Red Cell Dist. Width 14.5 % (11.5-14.5)
[2023-08-16 07:34] LABS: Vancomycin Random 13.5 ug/ml
--- NOTE | 2023-08-16 07:58 | CON.ORTHO ---
Consultation
-
Date/Time Consultation Requested: 08/15/2023; time unknown
Date/Time Consultation Performed: 08/16/2023; 0730
Performing Provider: Viviana Vale PA-C
Reason for Consultation: Right hip pain s/p ORIF intertrochanteric femur fracture
Consultation - Orthopedics
History
Mr. Crawford is a 63 year old male with PMH of CAD, IDDM, hepatitis C and renal transplant on immunosuppressants. He underwent right femur closed reduction and sliding hip screw fixation under the direction of Dr. Arredondo on 06/18/2023. He reports he
was doing very well in his recovery initially. He was initially discharged from to rehab, was transferred to another rehab from which he was discharged 2 days ago. He reports onset of pain in his right hip/groin yesterday. He does also note pain
in his right knee which is new since his last hospitalization. He denies any falls or injuries. Additionally, he reports a wound on his right heel which developed while he was in rehab. He does endorse pain in the heel which is worse with weight
bearing activities. He denies any fever, chills or other constitutional symptoms.
He does report he has lost 20 pounds since his surgery, because he was being served very small portions at his SNF. He has been living in his car since discharge from [facility].
Allergies / Home Medications
Allergy/AdvReac Type Severity Reaction Status Date / Time
No Known Allergies Allergy Unverified 06/16/23 10:49
�Medication �Instructions �Recorded
aspirin 81 mg tablet,delayed 81 mg PO DAILY 08/15/23
release
insulin lispro 100 unit/mL 0 sliding scale dose SC DIRECTED 08/15/23
subcutaneous pen
mycophenolate sodium 180 mg 180 mg PO Q12H@799,199908/15/23
tablet,delayed release
oxycodone 10 mg tablet 10 mg PO BID PRN severe pain 08/15/23
tacrolimus 1 mg capsule, 3 mg PO Q12H@0808/15/23
immediate-release
Vital Signs / Lab Results
Temp Pulse Resp BP Pulse Ox
98.7 F 102 19 144/79 100
08/15/23 22:15 08/15/23 22:15 08/15/23 22:15 08/15/23 22:15 08/15/23 22:15
08/16/23 06:40
XR Right Hip 08/15/2023 IMPRESSION:
Status post dynamic compression screw fixation of right proximal femoral fracture. The fracture line appears to be healed radiographically.
No evidence for new fracture. No evidence for displacement of fixation hardware.
Physical Exam:
General: well appearing male in NAD, AAOx3, afebrile
Head: atraumatic, normocephalic
Eyes: sclera anicteric
Ears: normal hearing
Heart: no edema
Lungs: normal work of breathing, no audible wheezing
Right hip: well healed surgical incision without signs of erythema, drainage or dehiscence. No edema or lesions about the hip. Very mild hue of erythema about the right buttock, but no significant erythema or heat compared to contralateral side.
Tenderness to palpation generally about the right hip. Hip ROM limited secondary to patient discomfort.
Right knee: no significant erythema, ecchymosis, effusion or lesions compared to contralateral side. No tenderness to palpation about the knee. PROM 0-105. Calf soft and nontender. NVID. There is a pressure ulcer on the right heel. No active
drainage or bleeding at present.
Assessment / Plan
Right hip pain s/p sliding screw fixation
--Buster has experienced one day of new onset hip pain following his right hip sliding screw fixation in June. Outwardly, I do not appreciate any significant erythema, edema or wound issues concerning for infection. His x-rays do not reveal any
signs of new fracture or hardware failure, and I do not appreciate any significant soft tissue edema. Patient symptoms and exam were discussed with Dr. Arredondo who recommends proceeding with pain control. He did also complain of right knee pain. XR
ordered, will await images. Will continue to follow.
--Continue wound care for pressure ulcer of RLE.
--Patient does have generalized deconditioning, and would likely benefit from PT/OT while admitted.
--Blood and wound culture pending. Continue to follow. WBC WNL.
--We appreciate the assistance of all teams in care of this patient. Continue management per primary.
[2023-08-16 08:04] LABS: ALT (SGPT) < 10 U/L (0-50); AST (SGOT) 12 U/L (17-59); Albumin 2.7 g/dl (3.5-5.0); Alkaline Phosphatase 63 U/L (38-126); Blood Urea Nitrogen 27 mg/dl (9-20); Calcium 8.2 mg/dl (8.4-10.2); Carbon Dioxide 23 mmol/L (22-30); Chloride 108 mmol/L (98-107); Estimated Creatinine Clearance 57 ml/min; Glucose 215 mg/dl (70-99); Potassium 3.9 mmol/L (3.5-5.1); Sodium 134 mmol/L (135-145); Total Bilirubin 1.5 mg/dl (0.2-1.3); Total Protein 5.2 g/dl (6.3-8.2); eGFR > 60.00
[2023-08-16 08:41] LABS: Glucose - Point of Care 237 mg/dl (70-99)
[2023-08-16] MEDS: PROGRAF 3 MG PO ×2 (08:43→21:30)
[2023-08-16] MEDS: COLACE PO ×2 (08:44→21:26)
[2023-08-16] MEDS: MYFORTIC DELAYED REL. 180 MG PO ×2 (08:45→21:30)
[2023-08-16] MEDS: MIRALAX PO (08:45)
[2023-08-16] MEDS: ASPIR LOW (ENTERIC COATED) 81 MG PO (08:45)
[2023-08-16] MEDS: HEPARIN SC ×2 (08:46→21:26)
[2023-08-16] MEDS: NOVOLOG FLEXPEN-LOW RESISTANCE 2 UNITS SC ×2 (09:01→12:56)
--- NOTE | 2023-08-16 09:20 | PHA.VAN.FU ---
Vancomycin Assessment / Plan
- Assessment
Renal Function: SCR Decreasing
WBC's are: WNL
In the past 24 hrs, patient has been: Afebrile
Concomitant Antimicrobials: piperacillin/tazobactam
- Assessment - Therapeutic Drug Monitoring
Random Level: 13.5 - drawn ~8H after initial dose of 1500mg
- Dosing Plan
Dosing by Level: Re-dose today (Vanc 1000mg)
- Monitoring Plan
Random Level: 08/16 599
- Follow Up
Pharmacy will continue to follow.
Vancomycin Follow UP
- -
Patient Age: 63
Patient Sex: Male
Vancomycin Day #: 2
Indication: Skin And Soft Tissue
Requesting Provider: Dr. Miranda
Pertinent Antimicrobial Allergies:
NKDA
Height / Weight:
Height 5 ft 10 in
Actual Weight 71.4 kg
Pertinent Past Medical History: renal transplant, DM 2
- Vital Signs / Lab Results
Temp Pulse Resp BP Pulse Ox
97.4 F 90 16 145/76 98
08/16/23 07:00 08/16/23 07:00 08/16/23 07:00 08/16/23 07:00 08/16/23 07:00
Lab Results - Hematology
08/15/23 08/16/23
19:20 06:40
WBC 8.5 8.0
Lab Results - Chemistry
08/15/23 08/16/23
19:20 06:40
BUN 36 H 27 H
Creatinine 1.5 H 1.3
Estimated Creat Clear 57
Albumin 3.4 L 2.7 L
08/15/23 08/15/23
19:20 23:30
Lactic Acid 0.7 Cancelled
Microbiology Results
08/15/23 19:37 Gram Stain - Preliminary
Heel - Right
Therapeutic Drug Monitoring
Random Vancomycin 13.5 ug/ml 08/16/23 06:40
[2023-08-16 09:24] LABS: Glycohemoglobin (HgbA1c) 6.5 % (4.0-5.6)
--- NOTE | 2023-08-16 09:51 | WOUNDNOTE ---
R HEEL (with photo flash)
--- NOTE | 2023-08-16 09:51 | WOUNDNOTE ---
L HEEL (with photo flash)
--- NOTE | 2023-08-16 10:01 | WOUNDNOTE ---
[facility] RN note: Patient admitted with intractable R hip pain, R heel pain with redness. R hip red. Patient was recently discharged from rehab and he lives in his car.
See H&P for complete history.
PMH: ORIF for R hip fracture 06/18/[address] Arredondo, Kidney transplant, CAD with stents, IDDM, IVC, former smoker, chronic thrombocytopenia, Hep C.
Wound Location and type/assessment: Patient admitted with: Unstageable R heel pressure injury (stage 3 or 4) with necrotic brown/black in center. R hip with large area of diffuse erythema. ID and Ortho on consult. R heel x ray negative for OM. +R
palpable pedal pulse. L heel scabbed dry blister.
Appetite: poor.
Pressure redistribution devices in place: [employer] air bed. Patient can turn self in bed slowly. He admits he was lying on his R side a lot prior to admission.
Plan: R heel dressing changed. Foam dressing applied L heel. Patient turned with help from NIELS Godinez. Heels off bed with pillows. Air chair cushion given. t/c SPD and ordered [employer]ue lite heel relief boots. Instructed patient pressure injury
prevention measures.
Will confirm orders with hospitalist and discussed with NIELS Godinez.
Updated care plan and will follow as needed.
Note to case management of equipment requested for discharge: air mattress.
Recommend follow up at wound care center upon discharge.
[2023-08-16] MEDS: NSS 1000 IV (11:44)
--- NOTE | 2023-08-16 12:05 | CON.ID ---
Consultation
-
Date/Time Consultation Requested: 08/15/23 22:00
Date/Time Consultation Performed: 08/16/23 12:05
Requesting Provider: Dr Miranda
Performing Provider: Dr Linda
Reason for Consultation: RT hip pain; rt heel ulcer ; immunosuppressed
Chief Complaint / Past History
Chief Complaint
Right hip pain and right heel wound with pain
History of Present Illness
Mr Crawford is a 63 year old male with history of Kidney/liver transplant at [facility] 2021 on mmf/tacro no steroids, R hip traumatic fracture repair here 06/18/23; he was discharged from rehab 2 days prior to arrival. Reporting progressive right hip
pain which has become severe, unable to bear weight. New blister on the right heel - broken and malodorous. Reporting 20 lb weight loss since surgery - disliked the food. No fevers, chills, nausea, chest pain, shortness of breath, nausea,
ovmiting, diarrhea constipation.
Of note currently living in his car.
Since arrival here he has been afebrile, bp stable, wbc 8, L shift noted,cr initially 1.5 now 1.3, a1c 6.5, ua negative, heel xray: no evidence of osteo, hip xray: healed fracture line, no displacement or new fracture. Blood cultures x2 done at
different times, wound culture of heel gram stain many gpcs and many gpr, currently on vanc/zosyn, ID is consulted for assistance with management.
Past History
Additional Past Medical History:
Cardiac (For cardiac stents 2021) and Other (Liver transplant, kidney transplant 2021)
Additional Past Surgical History:
as per hpi, cardiac stents
Allergy History:
No Known Allergies Allergy (Unverified 06/16/23 10:49)
Medications Reviewed: Yes
Social History
Tobacco: Non-Smoker
Alcohol: None
Personal: Single
Family History
Family History: Not Pertinent
Review of Systems
Review of Systems
General: Negative Fever or Chills
All systems: All other systems were reviewed and were negative
Vital Signs
Temp Pulse Resp BP Pulse Ox
97.4 F 90 16 145/76 98
08/16/23 07:00 08/16/23 07:00 08/16/23 07:00 08/16/23 07:00 08/16/23 07:00
Physical Exam
Physical Exam
Constitutional: No Acute Distress
Cardiovascular: Regular Rate and S1/S2; Negative Murmur or Rub
Pulmonary: Clear and Symmetric; Negative Wheezes, Rales or Rhonchi
Gastrointestinal: Soft, Non Tender, Non Distended and Normal Bowel Sounds
Skin: Warm and Dry; Negative Rash or Jaundice
Wound: Other (right hip surgical site fully healed without, warmth, fluctuance or dehiscence. the is minimal dependent erythema several inches below the surgical site where he has been laying)
Neurological: Awake
Lab / Diagnostic Study Results
08/16/23 06:40
08/16/23 06:40
Abs Immat Gran (auto) 0.1 10^3/uL (0-0.05) H 08/15/23 19:20
Absolute Neuts (auto) 6.9 10^3/uL (1.4-6.5) H 08/15/23 19:20
Absolute Lymphs (auto) 0.9 10^3/uL (1.2-3.4) L 08/15/23 19:20
Absolute Monos (auto) 0.6 10^3/uL (0.1-0.6) 08/15/23 19:20
Absolute Basos (auto) 0.0 10^3/uL (0-0.2) 08/15/23 19:20
Immature Gran % 0.8 % (0-0.5) H 08/15/23 19:20
Neutrophils % 81.4 % (42.2-75.2) H 08/15/23 19:20
Lymphocytes % 10.3 % (20.5-51.1) L 08/15/23 19:20
Monocytes % 6.6 % (1.7-9.3) 08/15/23 19:20
Eosinophils % 0.5 % (0-6) 08/15/23 19:20
Basophils % 0.4 % (0-2) 08/15/23 19:20
Lactic Acid Cancelled 08/15/23 23:30
Microbiology Results
Micro:
08/15/23 19:37 Wound Culture - Preliminary
Heel - Right Gram Stain - Preliminary
08/16/23 00:42 MRSA Screen - Pending
Nose
08/15/23 20:25 Blood Culture - Pending
Blood/Venous
08/15/23 19:20 Blood Culture - Pending
Blood/Venous
Assessment / Plan
Diabetic Foot Wound
DM2 - controlled
Liver/Kidney Transplantation - 2021
CKD
- eschar noted on the right foot; no erythema, warmth, tenderness, small amount of serous drainage
- right hip surgical site fully healed - no warmth, dehiscence or drainage
- mrsa screen pending
- blood cultures x2 in progress
- xrays without evidence of osteomyelitis
- agree that no external evidence of PJI at this moment, follow for bacteremia etc
- no evidence of osteo on the xrays
- agree with vanc/zosyn for now
- appreciate wound care
- consulted podiatry - to please consider debridement of the eschar to confirm no underlying infection
- agree with assessment of the vasculature
- follow clinically
--- NOTE | 2023-08-16 12:30 | W.PN.HOSP.TC ---
Addendum entered and electronically signed by Norma Pollock MD 08/16/23 13:26:
Patient seen and examined independently--agree with plan set forth by Dr. Cates
GENERAL: chronically ill appearing in no apparent distress
HEENT: NC/AT
HEART: regular rate and rhythm, +S1, +S2 3/6 FALGUNI
LUNGS : clear to auscultation bilaterally
ABDOM: soft, nontender, nondistended, + bowel sounds
EXT: no cyanosis, clubbing, or edema--right hip with well healed surgical site--erythema over right hip--outlined--also with right heel ulcer (pictures reviewed in chart)
NEUROLOGIC: grossly intact
Right hip pain with new onset of rash--likely cellulitis--no abnormalities noticed on x-ray--apprec ortho--consider CT scan--adjust pain meds--await blood cultures (if positive and with heart murmur, would check ECHO)--Wound cultures shows
gram-positive cocci and gram-positive rods, final results pending--Continue IV Zosyn and vancomycin
Right heel pressure ulcer (POA)-- which which which looks severe might consider Doppler arterial ultrasound to rule out PAD
Heart murmur--known per pt--Keeping endocarditis as differential and patient having recent right hip pain with rash s/p ORIF--No recent echo, monitor temp and WBC--Will continue antibiotics--consider ECHO
Kidney/liver transplant-2021--History of hepatitis C and liver cirrhosis--Continue tacrolimus and mycophenolate
Normocytic anemia--H&H stable
Chronic thrombocytopenia--Platelet dropped to 102--Monitor
IDDM--Insulin sliding scale and Levemir 10 units
CAD--Continue aspirin
DVT prophylaxis- heparin
CODE STATUS -- FULL CODE
Original Note:
Today's Communication/Plan
-
Continue antibiotics
Assessment / Plan
Assessment / Plan
Impression
Right hip pain with new onset of rash
Heart murmur
Kidney/liver transplant 2021
Normocytic anemia
Chronic thrombocytopenia
IDDM
CAD
Assessment and plan
Right hip pain with new onset of rash
Suspect #1 referred to pain from a different joint #2 endocarditis #3 cellulitis
Blood cultures, MRSA screen pending
Wound cultures shows gram-positive cocci and gram-positive rods, final results pending
Continue IV Zosyn and vancomycin- broad spectrum coverage
Follow for clinical signs
Monitor temperature curve and WBC
ID input appreciated
Hip x-ray was negative for new fractures might consider. CT scan of the hip for a better picture
Will talk to orthopedics
Right heel pressure ulcer which which which looks severe might consider Doppler arterial ultrasound to rule out PAD
Knee X ray -
FINDINGS/impression:
Trace suprapatellar effusion. Mild patellofemoral joint space narrowing. The medial and lateral joint spaces are maintained. There is evidence of medial and lateral meniscus chondrocalcinosis. No joint margin osteophyte formation. No erosion
Heart murmur
Keeping endocarditis as differential and patient having recent right hip pain with rash s/p ORIF
No recent echo, monitor temp and WBC
Will continue antibiotics
Kidney/liver transplant-2021
History of hepatitis C and liver cirrhosis
Continue tacrolimus and mycophenolate
Normocytic anemia
H&H stable
Chronic thrombocytopenia
Platelet dropped to 102
Monitor
IDDM
Insulin sliding scale and Levemir 10 units
CAD
Continue aspirin
DVT prophylaxis- heparin
Anticipated Discharge: 24 - 48 hours
Subjective/Interval History
-
Date of Service: August 16, 2023
Mr. Crawford is a 63 year old male with PMH of CAD, IDDM, hepatitis C s/p liver transplant and renal transplant on immunosuppressants (tacro+mycophenolate). He underwent right femur closed reduction and sliding hip screw fixation under the direction
of Dr. Arredondo on 06/18/2023. He reports he was doing very well in his recovery initially. He was initially discharged from to rehab, was transferred to another rehab from which he was discharged 2 days ago. Today patient complains of right hip
pain and right knee pain. There is a new rash which is maculopapular not crossing midline on the right hip. He denies any falls or injuries. Additionally, he reports a wound on his right heel which developed while he was in rehab. He does endorse
pain in the heel which is worse with weight bearing activities. He denies any fever, chills or other constitutional symptoms. He admits that' he is always cold'.
Objective Data
-
Labs:
Laboratory Results
08/16/23
06:40
WBC 8.0
Hgb 9.3 L
Hct 26.0 L
Plt Count 102 L
Sodium 134 L
Potassium 3.9
Chloride 108 H
Carbon Dioxide 23
BUN 27 H
Creatinine 1.3
Glucose 215 H
Calcium 8.2 L
Total Bilirubin 1.5 H
AST 12 L
ALT < 10
Alkaline Phosphatase 63
Vital Signs:
Vital Signs
Temp Pulse Resp BP Pulse Ox
97.4 F 90 16 145/76 98
08/16/23 07:00 08/16/23 07:00 08/16/23 07:00 08/16/23 07:00 08/16/23 07:00
Review of Systems
-
All other systems: Reviewed and negative (Except mentioned)
Constitutional: Reports Other (Cold intolerance)
Musculoskeletal: Reports Other (Right hip pain)
Skin: Reports Rash
Physical Exam
-
General: Pain and Conversant
HEENT: Normocephalic and Atraumatic
Respiratory: Clear to Auscultation
Cardiac: Regular Rhythm, S1/S2 and Murmur (Systolic)
GI: Soft and Nontender
Musculoskeletal: Other (Right hip pain, was able to roll over the left side, unable to examine to examine ROM as patient became annoyed and angry)
Skin: Warm (Tender to touch) and Rash (Maculopapular starting from right hip and extending up to the right side of the back)
Neuro: AO x 3
Psych: Other (Irritated)
Data Reviewed
-
Diagnostic Radiology: Report Reviewed by me and Discussed with Physician
CT Scan: Report Reviewed by me and Discussed with Physician
Medical Tests (Nuc Med, Echo etc): Report Reviewed by me and Discussed with Physician
Labs: Labs Reviewed by me and Discussed with Physician
[2023-08-16 12:39] LABS: Glucose - Point of Care 214 mg/dl (70-99)
[2023-08-16] MEDS: VANCOCIN 200 IV (13:08)
[2023-08-16 14:37] VITALS: BMI 22.6
[2023-08-16 15:00] VITALS: BP 106/68
--- NOTE | 2023-08-16 15:56 | CM ---
CM attempted to meet with pt 2x bedside
First, he asked CM to come back later after his meal
Second, utilizing commode
Discussed pt with Dr Pollock, medical workup needed
CM consult for homelessness and possible placement
PT order and eval pending
CM will continue to follow for dc planning
[2023-08-16] MEDS: NOVOLOG FLEXPEN-LOW RESISTANCE 3 UNITS SC (17:18)
[2023-08-16 17:19] LABS: Glucose - Point of Care 278 mg/dl (70-99)
[2023-08-16 21:34] LABS: Glucose - Point of Care 329 mg/dl (70-99)
[2023-08-16 23:03] VITALS: BP 108/57
[2023-08-17] MEDS: ZOSYN 50 IV ×4 (02:04→20:38)
[2023-08-17] MEDS: DILAUDID 0.25 MG IV ×5 (02:10→20:40)
[2023-08-17 06:44] LABS: Vancomycin Random 13.2 ug/ml
[2023-08-17 07:00] VITALS: BP 145/83
[2023-08-17 07:47] LABS: % Basophils 0.6 % (0-2); % Eosinophils 2.7 % (0-6); % Immature Granulocytes 1.7 % (0-0.5); % Lymphocytes 23.8 % (20.5-51.1); % Monocytes 7.4 % (1.7-9.3); % Neutrophils 63.8 % (42.2-75.2); Absolute Eosinophils 0.1 10^3/uL (0-0.7); Absolute Immature Granulocytes 0.1 10^3/uL (0-0.05); Absolute Lymphocytes 1.1 10^3/uL (1.2-3.4); Absolute Monocytes 0.4 10^3/uL (0.1-0.6); Hematocrit 26.2 % (39.0-52.0); Hemoglobin 9.1 g/dL (13.0-18.0); Mean Corp Hgb Conc. 34.7 g/dL (33.0-37.0); Mean Corpuscular Hgb 29.2 pg (27.0-31.0); Mean Platelet Volume 11.1 fL (7.4-10.4); Nucleated Red Blood Cells % 0 % (-); Platelet Count 96 10^3/uL (130-400); Red Blood Cell Count 3.12 10^6/uL (4.70-6.10); Red Cell Dist. Width 14.6 % (11.5-14.5); White Blood Cell Count 4.7 10^3/uL (4.8-10.8)
--- NOTE | 2023-08-17 07:49 | W.PN.UPDATE ---
Update Note
Progress Note Update
Status post open reduction internal fixation right hip with sliding hip screw June 17, [address] Arredondo. X-rays confirmed intertrochanteric fracture healed and no evidence of fracture. Right knee x-rays do show moderate degree of
tricompartmental osteoarthritis. He is afebrile and WBC normal. He is having some pain in his low back but no numbness, tingling or weakness into his lower extremities. He has generalized pain in the hip and groin. Exam today shows no erythema,
warmth, edema or pain about the hip. Passive range of motion reveals flexion 90 degrees, internal rotation 5 degrees and external rotation 30 degrees without pain. Minimal pain on his low back but distal neurovascular intact. I have low concerns
for infection about his right hip. I would expect for him to still have some pain about his right hip it takes a full year to recuperate from this type of surgery. His nurse said that he likes to lay on this hip and they have been trying to
minimize him from doing this. He should continue with formal physical therapy. When appropriate medicine could consider tapering steroid to decrease inflammation in his low back. Orthopedics to continue to follow for now.
[2023-08-17 07:58] LABS: Blood Urea Nitrogen 23 mg/dl (9-20); Calcium 8.3 mg/dl (8.4-10.2); Carbon Dioxide 24 mmol/L (22-30); Chloride 109 mmol/L (98-107); Estimated Creatinine Clearance 57 ml/min; Glucose 292 mg/dl (70-99); Potassium 4.1 mmol/L (3.5-5.1); Sodium 135 mmol/L (135-145); eGFR > 60.00
--- NOTE | 2023-08-17 08:02 | PHA.VAN.FU ---
Vancomycin Assessment / Plan
- Assessment
Renal Function: Stable
WBC's are: WNL
In the past 24 hrs, patient has been: Afebrile
Concomitant Antimicrobials: piperacillin/tazobactam
- Assessment - Therapeutic Drug Monitoring
Random Level: 13.2 - drawn ~16.5H after previous dose of 1000mg
- Dosing Plan
Dosing by Level: Re-dose today (Vanc 1000mg)
Dosing Comments: may consider scheduling dose if level and renal function stable
- Monitoring Plan
Random Level: 08/17 0600
- Follow Up
Pharmacy will continue to follow.
Vancomycin Follow UP
- -
Patient Age: 63
Patient Sex: Male
Vancomycin Day #: 3
Indication: Skin And Soft Tissue
Requesting Provider: Dr. Miranda / Alexei
Pertinent Antimicrobial Allergies:
NKDA
Height / Weight:
Height 5 ft 10 in
Actual Weight 71.4 kg
Pertinent Past Medical History: renal transplant, DM 2
- Vital Signs / Lab Results
Temp Pulse Resp BP Pulse Ox
98.5 F 93 18 108/57 100
08/16/23 23:03 08/16/23 23:03 08/16/23 23:03 08/16/23 23:03 08/16/23 23:03
Lab Results - Hematology
08/15/23 08/16/23 08/17/23
19:20 06:40 05:42
WBC 8.5 8.0 4.7 L
Lab Results - Chemistry
08/15/23 08/16/23 08/17/23
19:20 06:40 05:42
BUN 36 H 27 H 23 H
Creatinine 1.5 H 1.3 1.3
Estimated Creat Clear 57 57
Albumin 3.4 L 2.7 L
08/15/23 08/15/23
19:20 23:30
Lactic Acid 0.7 Cancelled
Microbiology Results
08/15/23 19:37 Wound Culture - Preliminary
Heel - Right Gram Stain - Preliminary
08/15/23 20:25 Blood Culture - Preliminary
Blood/Venous No Growth in 24 hours- Final report to follow
08/15/23 19:20 Blood Culture - Preliminary
Blood/Venous No Growth in 24 hours- Final report to follow
Therapeutic Drug Monitoring
Random Vancomycin 13.2 ug/ml 08/17/23 05:42
[2023-08-17] MEDS: ASPIR LOW (ENTERIC COATED) 81 MG PO (08:22)
[2023-08-17] MEDS: MIRALAX PO (08:22)
[2023-08-17] MEDS: MYFORTIC DELAYED REL. 180 MG PO ×2 (08:22→20:44)
[2023-08-17] MEDS: HEPARIN SC ×2 (08:22→20:38)
[2023-08-17] MEDS: SANTYL OINTMENT 1 APPLIC TOPICAL (08:23)
[2023-08-17] MEDS: COLACE PO ×2 (08:23→19:48)
[2023-08-17] MEDS: PROGRAF 3 MG PO ×2 (08:23→20:43)
[2023-08-17] MEDS: DAKIN'S SOLUTION 0.125% 1/4 STRENGTH 473 ML TOPICAL (08:24)
[2023-08-17 09:09] LABS: Glucose - Point of Care 299 mg/dl (70-99)
[2023-08-17] MEDS: NOVOLOG FLEXPEN-LOW RESISTANCE 3 UNITS SC (09:14)
[2023-08-17] MEDS: VANCOCIN 200 IV (09:27)
[2023-08-17 11:21] VITALS: BP 109/74; PULSE 90; O2SAT 100
--- NOTE | 2023-08-17 11:25 | CM ---
Addendum entered by MAURIZIO Cee 08/17/23 16:49:
Spoke with attending who stated that patient gave her the number to his sister who is supportive, Carina, .
Will call her to obtain further information and review SNF options.
Original Note:
Reviewed chart, met with patient to obtain information for assessment. Patient stated that he is homeless. He lives in his truck. He has been homeless for about a year and a half now. He described himself as independent with his ADLs, personal care,
dressing and bathing. He uses a walker to assist with his ambulation.
He has been to SNF in the past at [facility] and a few other SNF rehabs that can't recall.
Patient would like to go to SNF when stable. He would like to try to stay in the [facility]. Will make referrals when PT/OT becomes available.
Plan: Case management will continue to follow and assist with discharge planning. Patient would like SNF when stable.
--- NOTE | 2023-08-17 12:44 | W.PN.ID1 ---
Date of Service
Date of Service: August 17, 2023
Today's Communication
- agree with dewayne/jahn for now - plan short course of oral therapy when sensi back
Assessment / Plan
Diabetic Foot Wound
DM2 - controlled
Liver/Kidney Transplantation - 2021
CKD
- eschar noted on the right foot; no erythema, warmth, tenderness, small amount of serous drainage
- right hip surgical site fully healed - no warmth, dehiscence or drainage
- wound cx: modeate e coli, many s aureus, many GAS
- blood cultures x2 in progress, no growth to date
- if remains afebrile and without bacteremia my concern for endocarditis would be very low
- agree with vanc/zosyn for now - plan short course of oral therapy when sensi back
- appreciate wound care/podiatry
- MICHELLE normal
- extensive discussion - importance of offloading, risks of amputation if not offloading and ulcer progresses
- follow clinically
Chief Complaint
-: Cellulitis
Subjective / Review of Systems
afebrile
bp stable
without leukocytosis, cr stable
Vital Signs / Physical Exam
Vital Signs
Vital Signs
Temp Pulse Resp BP Pulse Ox
98.0 F 92 17 145/83 100
08/17/23 07:00 08/17/23 07:00 08/17/23 07:00 08/17/23 07:00 08/17/23 07:00
Physical Exam
Constitutional: No Acute Distress
Cardiovascular: Regular Rate and S1/S2; Negative Murmur or Rub
Pulmonary: Clear and Symmetric; Negative Wheezes or Rales
Gastrointestinal: Soft, Non Tender, Non Distended and Normal Bowel Sounds
Extremities: Other (no redness, swelling, tenderness or drainage from the hip; early eschar on the right heel - no erythema, minimal serous drainage)
Skin: Warm and Dry; Negative Rash or Jaundice
Objective Data
Lab Data
Lab Results
08/17/23 05:42
08/17/23 05:42
Estimated Creat Clear 57 ml/min 08/17/23 05:42
Lactic Acid Cancelled 08/15/23 23:30
Total Bilirubin 1.5 mg/dl (0.2-1.3) H 08/16/23 06:40
AST 12 U/L (17-59) L 08/16/23 06:40
ALT < 10 U/L (0-50) 08/16/23 06:40
Alkaline Phosphatase 63 U/L (38-126) 08/16/23 06:40
Most recent labs reviewed.
Micro Results:
08/15/23 19:37 Wound Culture - Preliminary
Heel - Right Escherichia coli
Staphylococcus aureus
Streptococcus pyogenes
Gram Stain - Preliminary
08/16/23 00:42 MRSA Screen - Final
Nose No Methicillin Resistant Staphylococcus aureus isolated.
08/15/23 20:25 Blood Culture - Preliminary
Blood/Venous No Growth in 24 hours- Final report to follow
08/15/23 19:20 Blood Culture - Preliminary
Blood/Venous No Growth in 24 hours- Final report to follow
Care Review
Plan reviewed with: Physician (Dr Deleon - plan)
--- NOTE | 2023-08-17 12:58 | W.CS.POD ---
Consult Summary - Podiatry
-
Podiatry has been asked to evaluate a 63 yo male admitted to the [facility] with Rt heel wound , he had a Rt hip fracture ORIF in June 2023 for a fracture. HE was then in couple of rehabs, he states that he developed a blister and got malodorous and he
presented to the [facility] for evaluation, he is on IV abx per ID , improved WBC count and resolved redness and foul odor to Rt heel, HE denies any fever, chills.
Reviewed PMH, meds and allergies
Exam : Rt foot intact pedal pulses
Intact protective sensation
Rt heel full thickness pressure ulcer about 5cm ax 5 cm with pink granular base and central fibrotic area noted, no active purulence, no local erythema, no exposed bone, no deep tunneling.
No other open lesions
WBC count is WNL
Xrays negative for any osteomyelitis or bone pathology.
A/P: Rt heel pressure ulcer
Resolved Rt foot cellutlis
h/o Rt hip ORIF 06/2023
Plan : PT evaluated at bedside
Cont Abx per iD.
Will start daily gauze dressings and drew to Rt heel . no need for Santyl
Will need heel relief shoes while in bed
Can use DH pressure relief shoe to Rt foot during ambulation.
No wt bearing restrictions per podiatry
No surgical intervention by podiatry
HE can follow in my office after discharge for follow up
[2023-08-17 13:20] LABS: Glucose - Point of Care 323 mg/dl (70-99)
[2023-08-17] MEDS: NOVOLOG FLEXPEN-LOW RESISTANCE 4 UNITS SC (13:20)
[2023-08-17] MEDS: ROXICODONE 5 MG PO (14:03)
--- NOTE | 2023-08-17 14:36 | WOUNDNOTE ---
[facility] RN note: Read Dr. Deleon's note which states no Santyl needed. Confirmed with Dr. Deleon to discontinue the Santyl part of the wound care order. Care plan and discharge instructions updated. t/c 3W hospice community liaison Jessica who confirmed
she will fax the [facility] pressure relief shoe to [facility] [place].
[2023-08-17 15:00] VITALS: BP 112/65
--- NOTE | 2023-08-17 15:32 | W.PN.HOSP.TC ---
Addendum entered and electronically signed by Norma Pollock MD 08/17/23 16:05:
Patient seen and examined independently--agree with plan set forth by Dr. Cates
GENERAL: chronically ill appearing in no apparent distress
HEENT: NC/AT
HEART: regular rate and rhythm, +S1, +S2 3/6 FALGUNI
LUNGS : clear to auscultation bilaterally
ABDOM: soft, nontender, nondistended, + bowel sounds
EXT: no cyanosis, clubbing, or edema--right hip with well healed surgical site--erythema resolved--also with right heel ulcer (pictures reviewed in chart)
NEUROLOGIC: grossly intact
Right hip pain with new onset of rash--likely cellulitis, resolved--no abnormalities noticed on x-ray--apprec ortho--adjust pain meds--blood cultures negative (if positive and with heart murmur, would check ECHO)--Wound cultures shows E. coli, Staph
aureus, Strep pyogenes--Continue IV Zosyn and vancomycin--therapy rec outpt PT
Right heel pressure ulcer (POA)-- apprec podiatry--no need for surgical debridement--arterial US normal
Heart murmur--known per pt-- endocarditis less likely as blood cultures neg to date--should have echo at some point --No recent echo, monitor temp and WBC--Will continue antibiotics
Kidney/liver transplant-2021--History of hepatitis C and liver cirrhosis--Continue tacrolimus and mycophenolate
Normocytic anemia--H&H stable
Chronic thrombocytopenia---Monitor
IDDM--Insulin sliding scale and Levemir 10 units
CAD--Continue aspirin
DVT prophylaxis- heparin
CODE STATUS -- FULL CODE
Original Note:
Today's Communication/Plan
-
Will get in touch with patient's sister, Carina
Continue IV antibiotics
Wound care for right heel ulcer
Assessment / Plan
Assessment / Plan
Impression
Right hip pain with new onset of rash
Right heel ulcer
Heart murmur
Kidney/liver transplant 2021
Normocytic anemia
Chronic thrombocytopenia
IDDM
CAD
Assessment and plan
Right hip pain with new onset of rash-improving
Suspect #1 referred to pain from a different joint #2 endocarditis #3 cellulitis
Wound cultures positive E. coli Staph aureus Streptococcus pyogenes,
BC no growth, MRSA negative
Continue IV Zosyn and vancomycin- broad spectrum coverage
Short course of oral antibiotics per ID
Follow for clinical signs
Monitor temperature curve and WBC
ID input appreciated
Doppler arterial study negative for PAD
PT/OT
Right heel ulcer/eschar
Appreciate podiatry input
Risk of amputation with history of diabetes , x-ray negative for osteomyelitis or bone pathology.
Will relieve shoes while in bed, daily gauze dressing.
No weightbearing restrictions per podiatry
No surgical interventions per podiatry
Knee X ray -
FINDINGS/impression:
Trace suprapatellar effusion. Mild patellofemoral joint space narrowing. The medial and lateral joint spaces are maintained. There is evidence of medial and lateral meniscus chondrocalcinosis. No joint margin osteophyte formation. No erosion
Heart murmur
Keeping endocarditis as differential and patient having recent right hip pain with rash s/p ORIF
No recent echo, monitor temp and WBC
Will continue antibiotics
Kidney/liver transplant-2021
History of hepatitis C and liver cirrhosis
Continue tacrolimus and mycophenolate
Normocytic anemia
H&H stable
Chronic thrombocytopenia
Platelet dropped to 102
Monitor
IDDM
Insulin sliding scale and Levemir 10 units
CAD
Continue aspirin
DVT prophylaxis- heparin
I and Dr. Pollock had a discussion with the patient about his home situation. As the patient is at risk of amputation of foot, it is better if patient goes home from the hospital and not live in his car. Patient provided his eldest sister,
Carina's phone number. Talk to the senior case manager about it, will reach out to Carina.
Anticipated Discharge: 24 - 48 hours
Subjective/Interval History
-
Date of Service: August 17, 2023
Patient is doing better today, mild pain in right hip and low back.
Objective Data
-
Labs:
Laboratory Results
08/17/23
05:42
WBC 4.7 L
Hgb 9.1 L
Hct 26.2 L
Plt Count 96 L
Sodium 135
Potassium 4.1
Chloride 109 H
Carbon Dioxide 24
BUN 23 H
Creatinine 1.3
Glucose 292 H
Calcium 8.3 L
Vital Signs:
Vital Signs
Temp Pulse Resp BP Pulse Ox
98.0 F 92 17 145/83 100
08/17/23 07:00 08/17/23 07:00 08/17/23 07:00 08/17/23 07:00 08/17/23 07:00
I&O
08/16/23 08/17/23 08/18/23
06:59 06:59 06:59
Intake Total 1300 / 1300
Output Total 770 / 770
Balance 530 / 530
Review of Systems
-
History Source: Patient
All other systems: Reviewed and negative (Except mentioned)
Musculoskeletal: Reports Other (Right hip pain, low back pain)
Physical Exam
-
General: Conversant
HEENT: Normocephalic and Atraumatic
Respiratory: Clear to Auscultation
Cardiac: Regular Rhythm and S1/S2
GI: Soft and Nontender
Musculoskeletal: Other (Pain in right hip and right side of the groin )
Skin: Rash (Has improved) and Ulcers (Right heel ulcer, dressing placed)
Neuro: AO x 3
Data Reviewed
-
Labs: Labs Reviewed by me and Discussed with Physician
[2023-08-17 16:45] LABS: Glucose - Point of Care 376 mg/dl (70-99)
[2023-08-17] MEDS: NOVOLOG FLEXPEN-LOW RESISTANCE 5 UNITS SC (16:47)
[2023-08-17] MEDS: TYLENOL PO (18:31)
[2023-08-17 21:23] LABS: Glucose - Point of Care 300 mg/dl (70-99)
[2023-08-17] MEDS: LANTUS 0.0899999999999999967 UNITS SC (22:10)
[2023-08-17 23:40] VITALS: BP 119/63
[2023-08-18] MEDS: TYLENOL PO ×4 (00:20→17:20)
[2023-08-18] MEDS: ZOSYN 50 IV ×2 (01:46→09:49)
[2023-08-18] MEDS: FLUSH (NSS) 2 FLUSH IV ×2 (01:48→06:39)
[2023-08-18] MEDS: DILAUDID 0.25 MG IV ×5 (01:59→20:05)
--- NOTE | 2023-08-18 04:00 | PTCARENOTE ---
@0300;Pt called nurses station and was difficult to understand.Went into pt's room and pt was agitated and mumbling.Told pt to remove mask.Pt stated,'I was hallucinating and I couldn't sleep.I drop my call prasad on the floor.So I called you.'Pulse ox
ranging 88-89% on room air.Nasal 02 2iters applied and POX increased to 94%.Respiratory TT to see pt about his CPAP and possible 02.
--- NOTE | 2023-08-18 05:43 | PTCARENOTE ---
Pt declined Tylenol this shift and stated,'I'm worried about it affecting my liver'.Instructed pt to talk to doctor in the morning about his concerns.
[2023-08-18 06:43] LABS: % Eosinophils 4.4 % (0-6); % Immature Granulocytes 1.5 % (0-0.5); % Lymphocytes 29.4 % (20.5-51.1); % Neutrophils 54.7 % (42.2-75.2); Absolute Eosinophils 0.2 10^3/uL (0-0.7); Absolute Immature Granulocytes 0.1 10^3/uL (0-0.05); Absolute Lymphocytes 1.1 10^3/uL (1.2-3.4); Absolute Monocytes 0.4 10^3/uL (0.1-0.6); Absolute Neutrophils 2.1 10^3/uL (1.4-6.5); Hematocrit 27.2 % (39.0-52.0); Hemoglobin 9.4 g/dL (13.0-18.0); Mean Corp Hgb Conc. 34.6 g/dL (33.0-37.0); Mean Corpuscular Hgb 28.6 pg (27.0-31.0); Mean Corpuscular Volume 82.7 fL (80.0-94.0); Mean Platelet Volume 10.9 fL (7.4-10.4); Nucleated Red Blood Cells % 0.5 % (-); Platelet Count 109 10^3/uL (130-400); Red Blood Cell Count 3.29 10^6/uL (4.70-6.10); Red Cell Dist. Width 14.3 % (11.5-14.5); White Blood Cell Count 3.9 10^3/uL (4.8-10.8)
[2023-08-18 06:56] LABS: Vancomycin Random 13.3 ug/ml
[2023-08-18 07:00] VITALS: BP 110/50
[2023-08-18 07:27] LABS: ALT (SGPT) < 10 U/L (0-50); AST (SGOT) 10 U/L (17-59); Albumin 2.7 g/dl (3.5-5.0); Alkaline Phosphatase 76 U/L (38-126); Blood Urea Nitrogen 23 mg/dl (9-20); Calcium 8.3 mg/dl (8.4-10.2); Carbon Dioxide 25 mmol/L (22-30); Chloride 105 mmol/L (98-107); Estimated Creatinine Clearance 49 ml/min; Glucose 295 mg/dl (70-99); Potassium 3.9 mmol/L (3.5-5.1); Sodium 133 mmol/L (135-145); Total Bilirubin 0.5 mg/dl (0.2-1.3); Total Protein 5.3 g/dl (6.3-8.2); eGFR 52.64
[2023-08-18 07:54] LABS: Glucose - Point of Care 325 mg/dl (70-99)
--- NOTE | 2023-08-18 08:18 | W.PN.HOSP.TC ---
Addendum entered and electronically signed by Norma Pollock MD 08/18/23 17:12:
Patient seen and examined independently--agree with plan set forth by Dr. Cates
d/c planning
GENERAL: chronically ill appearing in no apparent distress
HEENT: NC/AT
HEART: regular rate and rhythm, +S1, +S2 3/6 FALGUNI
LUNGS : clear to auscultation bilaterally
ABDOM: soft, nontender, nondistended, + bowel sounds
EXT: no cyanosis, clubbing, or edema--right hip with well healed surgical site--erythema resolved--also with right heel ulcer (pictures reviewed in chart)
NEUROLOGIC: grossly intact
Right hip pain with new onset of rash--improved--likely cellulitis, resolved--no abnormalities noticed on x-ray--apprec ortho--adjust pain meds--blood cultures negative--Wound cultures shows E. coli, Staph aureus, Strep pyogenes--IV Zosyn and
vancomycin being changed to cephalexin--d/c planning
Right heel pressure ulcer (POA)-- apprec podiatry--no need for surgical debridement--arterial US normal
Heart murmur--known per pt-- endocarditis less likely as blood cultures neg to date--should have echo at some point --No recent echo, monitor temp and WBC--Will continue antibiotics
Kidney/liver transplant-2021--History of hepatitis C and liver cirrhosis--Continue tacrolimus and mycophenolate
Normocytic anemia--H&H stable
Chronic thrombocytopenia---Monitor
IDDM--Insulin sliding scale and Levemir 10 units
CAD--Continue aspirin
Severe protein calorie malnutrition--affects wound healing
DVT prophylaxis- heparin
CODE STATUS -- FULL CODE
Original Note:
Today's Communication/Plan
-
Waiting on where the patient would call from the hospital
software program manager will talk to patient's family
Assessment / Plan
Assessment / Plan
Impression
Right hip pain with new onset of rash
Right heel ulcer
Heart murmur
Kidney/liver transplant 2021
Normocytic anemia
Chronic thrombocytopenia
IDDM
Severe malnutrition
CAD
Assessment and plan
Right hip pain with new onset of rash-
rash resolved
Suspect #1 referred to pain from a different joint #2 endocarditis #3 cellulitis
Wound cultures positive E. coli Staph aureus Streptococcus pyogenes,
BC no growth, MRSA negative
Transition to cephalexin 500 mg p.o. 4 times daily through 08/24 per ID
Follow for clinical signs
Monitor temperature curve and WBC
ID input appreciated
Doppler arterial study negative for PAD
PT/OT
Right heel ulcer/eschar
Appreciate podiatry input
Risk of amputation with history of diabetes , x-ray negative for osteomyelitis or bone pathology.
Daily gauze dressing.
No weightbearing restrictions per podiatry
No surgical interventions per podiatry
Knee X ray -
FINDINGS/impression:
Trace suprapatellar effusion. Mild patellofemoral joint space narrowing. The medial and lateral joint spaces are maintained. There is evidence of medial and lateral meniscus chondrocalcinosis. No joint margin osteophyte formation. No erosion
Heart murmur
Keeping endocarditis as differential and patient having recent right hip pain with rash s/p ORIF
No recent echo, monitor temp and WBC
Will continue antibiotics
Kidney/liver transplant-2021
History of hepatitis C and liver cirrhosis
Continue tacrolimus and mycophenolate
Normocytic anemia
H&H stable
Chronic thrombocytopenia
Platelet dropped to 102
Monitor
IDDM
Insulin sliding scale and Levemir 10 units
Moderate dose sliding scale
CAD
Continue aspirin
Severe malnutrition
Patient has been homeless for the past 2 months, he has no family support.
DVT prophylaxis- heparin
I and Dr. Pollock had a discussion with the patient about his home situation. As the patient is at risk of amputation of foot, it is better if patient goes home from the hospital and not live in his car. Patient sustained The did not respond to
the phone call. Patient provided his oldest sister's contact number Candace. Talk to the high risk case manager and we will reach out to his oldest sister. Discussed with the patient that he has other options halfway home, rehab facility. Patient refused
halfway home and rehab facility but we tried to convince him as it is the best option in his situation as he could lose his foot.
Anticipated Discharge: Within 24 hours
Subjective/Interval History
-
Date of Service: August 18, 2023
Patient complains of right hip pain, improved right hip rash.
Objective Data
-
Labs:
Laboratory Results
08/18/23
06:07
WBC 3.9 L
Hgb 9.4 L
Hct 27.2 L
Plt Count 109 L
Sodium 133 L
Potassium 3.9
Chloride 105
Carbon Dioxide 25
BUN 23 H
Creatinine 1.5 H
Glucose 295 H
Calcium 8.3 L
Total Bilirubin 0.5 D
AST 10 L
ALT < 10
Alkaline Phosphatase 76
Vital Signs:
Vital Signs
Temp Pulse Resp BP Pulse Ox
97.8 F 89 17 110/50 99
08/18/23 07:00 08/18/23 07:00 08/18/23 07:00 08/18/23 07:00 08/18/23 07:00
I&O
08/17/23 08/18/23 08/19/23
06:59 06:59 06:59
Intake Total 1300 / 1300 1030 / 1030 480 / 480
Output Total 770 / 770 300 / 300 700 / 700
Balance 530 / 530 730 / 730 -220 / -220
Review of Systems
-
History Source: Patient
All other systems: Reviewed and negative (Except mentioned)
Musculoskeletal: Reports Other (Right hip pain, right heel pain)
Skin: Reports Rash (Resolved)
Physical Exam
-
General: Pain
HEENT: Normocephalic and Atraumatic
Respiratory: Clear to Auscultation
Cardiac: Regular Rhythm, S1/S2 and Murmur
GI: Soft, Nontender and Nondistended
Musculoskeletal: Other (Decreased pain and range of motion of the right hip)
Skin: Rash (Resolved)
Psych: Calm
Data Reviewed
-
Labs: Labs Reviewed by me, Discussed with Physician and Discussed with Nurse
--- NOTE | 2023-08-18 09:04 | PN.CDI ---
CDI
- -
CDI:
Physician Documentation Request
Admit Date: 08/15/23 21:21
Dear Doctor Loan,
Patient admitted with right hip cellulitis.
08/15 Nutrition note, 'Per ASPEN/AND guidelines, pt meets for severe malnutrition in the context of social/economic circumstances as evidenced by 9.8% weight loss x 2 months, <50% intake est needs x > 1 month.
Please provide in your progress note the diagnosis associated withe the above findings and your assessment:
Severe protein calorie malnutrition
Moderate protein calorie malnutrition
Other
[place] Criteria ([facility] Hospitalist 2017)
2 or more criteria must be present for either
non severe or severe malnutrition
Note that the criteria differs related to the
presence of an acute or chronic illness
Acute Illness Chronic Illness
Energy Intake Non Severe: <75% for >7 days Non Severe: <75% for >1 month
Severe: <50% for >5 days Severe: <75% for >1 month
Weight Loss Non Severe: 1-2% over 1 week Non Severe: 5% over 1 month
5% over 1 month 7.5% over 3 months
7.5% over 3 months 10% over 6 months
1 year N/A 20% over 1 year
Severe: >2% over 1 week Severe: >5% over 1 month
>5% over 1 month >7.5% over 3 months
>7.5% over 3 months >10% over 6 months
1 year N/A >20% over 1 year
Body Fat Non Severe: Mild Decrease Non Severe: Mild Loss
Severe: Moderate Decrease Severe: Severe Loss
Muscle Mass Non Severe: Mild Decrease Non Severe: Mild Loss
Severe: Moderate Decrease Severe: Severe Loss
Fluid Accumulation Non Severe: Mild Accumulation Non Severe: Mild Accumulation
Severe: Moderate to severe Severe: Moderate to severe
accumulation accumulation
Reduced Claim Professional Strength Non Severe: N/A Non Severe: N/A
Severe: Measurably reduced Severe: Measurably reduced
Use of terms such as suspected, likely, concern for, or probable (associated with a specific diagnosis that is being evaluated, monitored, or treated as if it exists) are acceptable and can be coded in the inpatient setting, when documented at the
time of discharge.
Thank you,
Samia HUA,RN,CCDS
CDI Specialist
Available via [facility] text
Please use your independent medical judgment in providing your response.
--- NOTE | 2023-08-18 09:39 | CM ---
Addendum entered by Yanira Kaiser [facility] 08/18/23 16:42:
Received return call back from Carina who stated that she would not be able to have patient come stay with her and every time a family member has tried to help patient he leaves. Carina stated that his daughter put him in an apartment and he left that
stating that there were roaches and it was unlivable. Carina stated that she would be unable to come up with a family member, friend or any relative who can support patient and shared that she really feels he needs Rehab.
Addendum entered by Yanira Kaiser [facility] 08/18/23 15:23:
Placed a call to patient's sister Jocelyne, who answered but stated that she would be unable to take patient into her residence as she herself has health problems. Patient told attending that he does not want to go to a homeless snf and will think
about SNF. Will make local referrals to determine who may have a bed for him as per previous conversation he stated that he would select local rehabs if he is willing to go. Attending explained dangers of patient going back to his previous living
environment.
Addendum entered by Yanira Kaiser [facility] 08/18/23 12:32:
Spoke with attending who stated that after she met with patient, he stated that he has another sister, Jocelyne, who may be able to provide him with housing for a while. Will call her. [phone].
Addendum entered by Yanira Kaiser [facility] 08/18/23 09:50:
Spoke with patient who expressed that he is refusing to go back to a SNF. He stated that he was treated poorly and he does not believe that he will be treated well at any SNF, therefore he is declining SNF all together.
Will await return call from sister.
Will provide resources for homeless shelters.
Original Note:
Reviewed chart, PT notes. Spoke with attending's resident as well as CM supervisor electric. Patient doing well in therapy and per notes does not want to go back to a SNF. Will discuss this with him as he has multiple wounds. Placed a call to patient's
sister, Carina, however had to leave a voice mail. Encouraged return call to discuss discharge planning.
Plan: Case management will continue to follow and assist with discharge planning. Will provide homeless resources to patient and determine if he can go to his sisters house who he described as supportive. Will f/u with patient regarding SNF for
wound care.
[2023-08-18] MEDS: ROXICODONE 5 MG PO ×4 (09:46→22:20)
[2023-08-18] MEDS: COLACE PO ×3 (09:48→20:05)
[2023-08-18] MEDS: MYFORTIC DELAYED REL. 180 MG PO ×2 (09:48→20:04)
[2023-08-18] MEDS: ASPIR LOW (ENTERIC COATED) 81 MG PO (09:48)
[2023-08-18] MEDS: PROGRAF 3 MG PO ×2 (09:48→20:05)
[2023-08-18] MEDS: MIRALAX 17 GRAMS PO (09:48)
[2023-08-18] MEDS: HEPARIN SC ×2 (09:49→20:05)
[2023-08-18] MEDS: DAKIN'S SOLUTION 0.125% 1/4 STRENGTH 473 ML TOPICAL (09:49)
[2023-08-18] MEDS: NOVOLOG FLEXPEN-LOW RESISTANCE SC (10:13)
[2023-08-18] MEDS: NOVOLOG FLEXPEN-MODERATE RESISTANCE 7 UNITS SC ×2 (10:39→13:18)
--- NOTE | 2023-08-18 11:09 | PHA.KIN.UP ---
Assessment / Plan
- Assessment
Renal Function: Stable (scR 1.5->1.3->1.5, but stil above baseline)
WBC's are: Trending Down
In the past 24 hrs, patient has been: Afebrile
- Plan: Adjust Regimen Based on Level
Dose will be adjusted to: vanc 1000mg q24h
No level ordered at this time: consider in the upcoming days
- Follow Up
Pharmacy will continue to follow.
FollowUp Pharmacokinetics Note
- -
Patient Age: 63
Patient Sex: Male
Antibiotic Day #: 4
Indication: Skin And Soft Tissue
Requesting Provider: Dr. Miranda / Alexei
Pertinent Antimicrobial Allergies:
NKDA
Height / Weight:
Height 5 ft 10 in
Actual Weight 71.4 kg
Pertinent Past Medical History: renal transplant, DM 2
- Vital Signs / Lab Results
Temp Pulse Resp BP Pulse Ox
97.8 F 89 17 110/50 99
08/18/23 07:00 08/18/23 07:00 08/18/23 07:00 08/18/23 07:00 08/18/23 07:00
Lab Results - Hematology
08/15/23 08/16/23 08/17/23
19:20 06:40 05:42
WBC 8.5 8.0 4.7 L
08/18/23
06:07
WBC 3.9 L
Lab Results - Chemistry
08/15/23 08/16/23 08/17/23
19:20 06:40 05:42
BUN 36 H 27 H 23 H
Creatinine 1.5 H 1.3 1.3
Estimated Creat Clear 57 57
Albumin 3.4 L 2.7 L
08/18/23
06:07
BUN 23 H
Creatinine 1.5 H
Estimated Creat Clear 49
Albumin 2.7 L
08/15/23 08/15/23
19:20 23:30
Lactic Acid 0.7 Cancelled
Microbiology Results
08/15/23 20:25 Blood Culture - Preliminary
Blood/Venous No Growth in 48 hours- Final report to follow
08/15/23 19:20 Blood Culture - Preliminary
Blood/Venous No Growth in 48 hours- Final report to follow
08/15/23 19:37 Wound Culture - Preliminary
Heel - Right Escherichia coli
Staphylococcus aureus
Streptococcus pyogenes
Gram Stain - Preliminary
08/16/23 00:42 MRSA Screen - Final
Nose No Methicillin Resistant Staphylococcus aureus isolated.
Concomitant Antimicrobials:
Therapeutic Drug Monitoring
Random Vancomycin 13.3 ug/ml 08/18/23 06:07
[2023-08-18 11:31] LABS: Glucose - Point of Care 333 mg/dl (70-99)
--- NOTE | 2023-08-18 11:35 | W.PN.ID1 ---
Date of Service
Date of Service: August 18, 2023
Today's Communication
Transition to cephalexin 500mg po qid through 08/25/23.
Assessment / Plan
Diabetic Foot Wound
DM2 - controlled
Liver/Kidney Transplantation - 2021
CKD
- eschar noted on the right foot; no erythema, warmth, tenderness, small amount of serous drainage
- right hip surgical site fully healed - no warmth, dehiscence or drainage
- wound cx: moderate e coli, many MSSA, many GAS
- blood cultures x2 in progress, no growth to date
- Transition vanc/zosyn to cephalexin 500mg po qid through 08/25/23.
- appreciate wound care/podiatry
- MICHELLE normal
- extensive discussion - importance of offloading, risks of amputation if not offloading and ulcer progresses
- follow clinically
Chief Complaint
-: Cellulitis
Subjective / Review of Systems
R heel wound is sore.
Vital Signs / Physical Exam
Vital Signs
Vital Signs
Temp Pulse Resp BP Pulse Ox
97.8 F 89 17 110/50 99
08/18/23 07:00 08/18/23 07:00 08/18/23 07:00 08/18/23 07:00 08/18/23 07:00
Physical Exam
Constitutional: No Acute Distress
Wound: Other (Right heel large wound with central yellow-cagle slough)
Objective Data
Lab Data
Lab Results
08/18/23 06:07
08/18/23 06:07
Estimated Creat Clear 49 ml/min 08/18/23 06:07
Lactic Acid Cancelled 08/15/23 23:30
Total Bilirubin 0.5 mg/dl (0.2-1.3) D 08/18/23 06:07
AST 10 U/L (17-59) L 08/18/23 06:07
ALT < 10 U/L (0-50) 08/18/23 06:07
Alkaline Phosphatase 76 U/L (38-126) 08/18/23 06:07
Most recent labs reviewed.
Micro Results:
08/15/23 19:37 Wound Culture - Final
Heel - Right Escherichia coli
S aureus-Methicillin Sensitive
Streptococcus pyogenes
Gram Stain - Final
08/15/23 20:25 Blood Culture - Preliminary
Blood/Venous No Growth in 48 hours- Final report to follow
08/15/23 19:20 Blood Culture - Preliminary
Blood/Venous No Growth in 48 hours- Final report to follow
08/16/23 00:42 MRSA Screen - Final
Nose No Methicillin Resistant Staphylococcus aureus isolated.
Care Review
Plan reviewed with: Physician ()
[2023-08-18] MEDS: KEFLEX 500 MG PO ×3 (13:18→22:19)
[2023-08-18 15:00] VITALS: BP 121/69
--- NOTE | 2023-08-18 15:12 | W.PN.UPDATE ---
Update Note
Progress Note Update
Patient resting comfortably in bed. Has been ambulating with PT. No erythema present at the right hip. No elevated WBC count present. Afebrile, VSS. Being treated for R heel wound by podiatry and ID. On cephalexin. Blood cx NGTD. Low concern for a
right hip infection. Continue offloading RLE, pain control, PT/OT. He may WBAT at the RLE. Diabetic management and glucose control- appreciate IM recommendations. Will continue to follow peripherally.
[2023-08-18 16:44] LABS: Glucose - Point of Care 237 mg/dl (70-99)
[2023-08-18] MEDS: NOVOLOG FLEXPEN-MODERATE RESISTANCE 3 UNITS SC (17:19)
[2023-08-18 22:06] LABS: Glucose - Point of Care 323 mg/dl (70-99)
[2023-08-18] MEDS: LANTUS 0.100000000000000006 UNITS SC (22:20)
[2023-08-18] MEDS: NOVOLOG FLEXPEN 5 UNITS SC (22:21)
[2023-08-18 23:15] VITALS: BP 107/60
[2023-08-19] MEDS: TYLENOL PO ×4 (00:17→18:02)
[2023-08-19] MEDS: DILAUDID 0.25 MG IV ×5 (00:32→22:03)
[2023-08-19 00:40] LABS: Glucose - Point of Care 238 mg/dl (70-99)
[2023-08-19 06:15] LABS: % Basophils 0.7 % (0-2); % Eosinophils 3.7 % (0-6); % Immature Granulocytes 1.4 % (0-0.5); % Lymphocytes 34.9 % (20.5-51.1); % Monocytes 6.5 % (1.7-9.3); % Neutrophils 52.8 % (42.2-75.2); Absolute Eosinophils 0.2 10^3/uL (0-0.7); Absolute Immature Granulocytes 0.1 10^3/uL (0-0.05); Absolute Lymphocytes 1.5 10^3/uL (1.2-3.4); Absolute Monocytes 0.3 10^3/uL (0.1-0.6); Absolute Neutrophils 2.3 10^3/uL (1.4-6.5); Hematocrit 27.9 % (39.0-52.0); Hemoglobin 9.7 g/dL (13.0-18.0); Mean Corp Hgb Conc. 34.8 g/dL (33.0-37.0); Mean Corpuscular Volume 83.5 fL (80.0-94.0); Mean Platelet Volume 10.7 fL (7.4-10.4); Nucleated Red Blood Cells % 0 % (-); Platelet Count 133 10^3/uL (130-400); Red Blood Cell Count 3.34 10^6/uL (4.70-6.10); Red Cell Dist. Width 14.1 % (11.5-14.5); White Blood Cell Count 4.3 10^3/uL (4.8-10.8)
[2023-08-19 06:41] LABS: Blood Urea Nitrogen 30 mg/dl (9-20); Calcium 8.7 mg/dl (8.4-10.2); Carbon Dioxide 24 mmol/L (22-30); Chloride 106 mmol/L (98-107); Estimated Creatinine Clearance 53 ml/min; Glucose 168 mg/dl (70-99); Magnesium 1.9 mg/dl (1.6-2.3); Potassium 4.1 mmol/L (3.5-5.1); Sodium 137 mmol/L (135-145); eGFR 57.18
[2023-08-19 07:00] VITALS: BP 115/74
[2023-08-19 08:22] LABS: Glucose - Point of Care 183 mg/dl (70-99)
[2023-08-19] MEDS: ASPIR LOW (ENTERIC COATED) 81 MG PO (09:31)
[2023-08-19] MEDS: PROGRAF 3 MG PO ×2 (09:31→19:56)
[2023-08-19] MEDS: HEPARIN 5000 UNITS SC (09:31)
[2023-08-19] MEDS: COLACE 100 MG PO (09:31)
[2023-08-19] MEDS: MIRALAX 17 GRAMS PO (09:32)
[2023-08-19] MEDS: KEFLEX 500 MG PO ×4 (09:33→22:02)
[2023-08-19] MEDS: MYFORTIC DELAYED REL. 180 MG PO ×2 (09:33→19:57)
[2023-08-19] MEDS: NOVOLOG FLEXPEN-MODERATE RESISTANCE 1 UNITS SC (09:34)
[2023-08-19] MEDS: ROXICODONE 5 MG PO ×4 (09:37→23:55)
[2023-08-19 12:34] LABS: Glucose - Point of Care 330 mg/dl (70-99)
[2023-08-19] MEDS: NOVOLOG FLEXPEN-HIGH RESISTANCE 10 UNITS SC (13:01)
[2023-08-19] MEDS: NOVOLOG FLEXPEN-MODERATE RESISTANCE 7 UNITS SC (13:17)
[2023-08-19] MEDS: DAKIN'S SOLUTION 0.125% 1/4 STRENGTH 1 ML TOPICAL (14:30)
--- NOTE | 2023-08-19 14:50 | W.PN.HOSP.TC ---
Addendum entered and electronically signed by Norma Pollock MD 08/19/23 15:11:
Patient seen and examined independently--agree with plan set forth by Dr. Cates
d/c planning
GENERAL: chronically ill appearing in no apparent distress
HEENT: NC/AT
HEART: regular rate and rhythm, +S1, +S2 3/6 FALGUNI
LUNGS : clear to auscultation bilaterally
ABDOM: soft, nontender, nondistended, + bowel sounds
EXT: no cyanosis, clubbing, or edema--right hip with well healed surgical site--erythema resolved--also with right heel ulcer (pictures reviewed in chart)
NEUROLOGIC: grossly intact
Right hip pain with new onset of rash--resolved--no abnormalities noticed on x-ray--apprec ortho--adjust pain meds--blood cultures negative--Wound cultures shows E. coli, Staph aureus, Strep pyogenes--IV Zosyn and vancomycin being changed to
cephalexin--d/c planning--pt says his insurance won't pay for his antirejection meds if he is in rehab...likely d/c back to his car--family cannot take him in
Right heel pressure ulcer (POA)-- apprec podiatry--no need for surgical debridement--arterial US normal
Heart murmur--known per pt-- endocarditis less likely as blood cultures neg to date--should have echo at some point--Will continue antibiotics as per ID
Kidney/liver transplant-2021--History of hepatitis C and liver cirrhosis--Continue tacrolimus and mycophenolate
Normocytic anemia--H&H stable
Chronic thrombocytopenia---Monitor
IDDM--Insulin sliding scale and Levemir 10 units
CAD--Continue aspirin
Severe protein calorie malnutrition--affects wound healing
DVT prophylaxis- heparin
CODE STATUS -- FULL CODE
Original Note:
Today's Communication/Plan
-
possible discharge tomorrow to rehab
will discuss with CM
Assessment / Plan
Assessment / Plan
Impression
Right hip pain with new onset of rash
Right heel ulcer
Heart murmur
Kidney/liver transplant 2021
Normocytic anemia
Chronic thrombocytopenia
IDDM
Severe malnutrition
CAD
Assessment and plan
Right hip pain with new onset of rash-
rash resolved
Suspect #1 referred to pain from a different joint #2 endocarditis #3 cellulitis
Wound cultures positive E. coli Staph aureus Streptococcus pyogenes,
BC no growth, MRSA negative
Transition to cephalexin 500 mg p.o. 4 times daily through 08/24 per ID
Follow for clinical signs
Monitor temperature curve and WBC
ID input appreciated
Doppler arterial study negative for PAD
PT/OT
For pain patient will continue IV Dilaudid for today, plan is to resume to oxycodone and as needed Tylenol at discharge
Right heel ulcer/eschar
Appreciate podiatry input
Risk of amputation with history of diabetes , x-ray negative for osteomyelitis or bone pathology.
Daily gauze dressing.
No weightbearing restrictions per podiatry
No surgical interventions per podiatry
Knee X ray -
FINDINGS/impression:
Trace suprapatellar effusion. Mild patellofemoral joint space narrowing. The medial and lateral joint spaces are maintained. There is evidence of medial and lateral meniscus chondrocalcinosis. No joint margin osteophyte formation. No erosion
Heart murmur
Keeping endocarditis as differential and patient having recent right hip pain with rash s/p ORIF
No recent echo, monitor temp and WBC
Will continue antibiotics
Kidney/liver transplant-2021
History of hepatitis C and liver cirrhosis
Continue tacrolimus and mycophenolate
Normocytic anemia
H&H stable
Chronic thrombocytopenia
Platelet dropped to 102
Monitor
IDDM
Increase Lantus to 15 units
NovoLog 15 units, ISS
CAD
Continue aspirin
Severe malnutrition
Patient has been homeless for the past 2 months, he has no family support.
DVT prophylaxis- heparin
I and Dr. Pollock had a discussion with the patient about his home situation. As the patient is at risk of amputation of foot, it is better if patient goes home from the hospital. Informed patient that his family refused to take the
responsibility. Patient will be going to either a rehab facility or fdc home.
Anticipated Discharge: 24 - 48 hours
Subjective/Interval History
-
Date of Service: August 19, 2023
Patient denies chest pain/shortness of breath he admits having pain in his right back and right heel.
Objective Data
-
Labs:
Laboratory Results
08/19/23
05:48
WBC 4.3 L
Hgb 9.7 L
Hct 27.9 L
Plt Count 133 D
Sodium 137
Potassium 4.1
Chloride 106
Carbon Dioxide 24
BUN 30 H
Creatinine 1.4 H
Glucose 168 H
Calcium 8.7
Vital Signs:
Vital Signs
Temp Pulse Resp BP Pulse Ox
97.6 F 89 18 115/74 98
08/19/23 07:00 08/19/23 07:00 08/19/23 07:00 08/19/23 07:00 08/19/23 07:00
I&O
08/18/23 08/19/23 08/20/23
06:59 06:59 06:59
Intake Total 1030 / 1030 1320 / 1320
Output Total 300 / 300 1300 / 1300
Balance 730 / 730 20
Review of Systems
-
All other systems: Reviewed and negative (Except right hip and right heel pain)
Physical Exam
-
General: Conversant
HEENT: Normocephalic and Atraumatic
Respiratory: Clear to Auscultation
Cardiac: Regular Rhythm, S1/S2 and Murmur
GI: Soft, Nontender and Nondistended
Musculoskeletal: No Edema
Neuro: AO x 3
Data Reviewed
-
Labs: Labs Reviewed by me and Discussed with Physician
[2023-08-19 15:00] VITALS: BP 91/56
[2023-08-19 16:48] LABS: Glucose - Point of Care 312 mg/dl (70-99)
[2023-08-19] MEDS: NOVOLOG FLEXPEN 10 UNITS SC (18:02)
[2023-08-19] MEDS: HEPARIN SC (19:57)
[2023-08-19] MEDS: COLACE PO (19:57)
[2023-08-19 21:47] LABS: Glucose - Point of Care 236 mg/dl (70-99)
[2023-08-19] MEDS: LANTUS 0.149999999999999994 UNITS SC (22:02)
[2023-08-19 23:00] VITALS: BP 129/71
[2023-08-20] MEDS: TYLENOL PO ×5 (00:58→23:16)
[2023-08-20] MEDS: DILAUDID 0.25 MG IV ×5 (02:08→21:38)
[2023-08-20] MEDS: ROXICODONE 5 MG PO ×4 (05:35→23:13)
[2023-08-20 06:53] LABS: Hematocrit 25.7 % (39.0-52.0); Mean Corpuscular Hgb 28.8 pg (27.0-31.0); Mean Corpuscular Volume 82.4 fL (80.0-94.0); Mean Platelet Volume 9.8 fL (7.4-10.4); Platelet Count 111 10^3/uL (130-400); Red Blood Cell Count 3.12 10^6/uL (4.70-6.10); Red Cell Dist. Width 14.4 % (11.5-14.5); White Blood Cell Count 4.6 10^3/uL (4.8-10.8)
[2023-08-20 07:30] VITALS: BP 123/76
[2023-08-20 07:30] LABS: Blood Urea Nitrogen 43 mg/dl (9-20); Calcium 8.5 mg/dl (8.4-10.2); Carbon Dioxide 22 mmol/L (22-30); Chloride 106 mmol/L (98-107); Estimated Creatinine Clearance 43 ml/min; Glucose 190 mg/dl (70-99); Potassium 4.3 mmol/L (3.5-5.1); Sodium 136 mmol/L (135-145)
[2023-08-20 07:53] LABS: Glucose - Point of Care 203 mg/dl (70-99)
--- NOTE | 2023-08-20 09:20 | W.PN.HOSP.TC ---
Addendum entered and electronically signed by Norma Pollock MD 08/20/23 13:18:
Patient seen and examined independently--agree with plan set forth by Dr. Cates
d/c planning- pt now agrees to SNF
GENERAL: chronically ill appearing in no apparent distress
HEENT: NC/AT
HEART: regular rate and rhythm, +S1, +S2 3/6 FALGUNI
LUNGS : clear to auscultation bilaterally
ABDOM: soft, nontender, nondistended, + bowel sounds
EXT: no cyanosis, clubbing, or edema--right hip with well healed surgical site--erythema resolved--also with right heel ulcer (pictures reviewed in chart)
NEUROLOGIC: grossly intact
Right hip pain with new onset of rash--resolved--no abnormalities noticed on x-ray--apprec ortho--adjust pain meds--blood cultures negative--Wound cultures shows E. coli, Staph aureus, Strep pyogenes--IV Zosyn and vancomycin being changed to
cephalexin through 08/25/23--d/c planning--pt says his insurance won't pay for his antirejection meds if he is in rehab--family cannot take him in--now agreeable to SNF
Right heel pressure ulcer (POA)-- apprec podiatry--no need for surgical debridement--arterial US normal--local wound care
Heart murmur--known per pt-- endocarditis less likely as blood cultures neg to date--should have echo at some point--Will continue antibiotics as per ID
Kidney/liver transplant-2021--History of hepatitis C and liver cirrhosis--Continue tacrolimus and mycophenolate
mild ROXY--will give IVF x 1L--follow
Normocytic anemia--H&H stable
Chronic thrombocytopenia---Monitor
IDDM--Insulin sliding scale and Levemir 10 units
CAD--Continue aspirin
Severe protein calorie malnutrition--affects wound healing
DVT prophylaxis- heparin
CODE STATUS -- FULL CODE
Original Note:
Today's Communication/Plan
-
Discussed with CM
possible dc today to SNF
Assessment / Plan
Assessment / Plan
Impression
Right hip pain with new onset of rash
Right heel ulcer
Heart murmur
Kidney/liver transplant 2021
Normocytic anemia
Chronic thrombocytopenia
IDDM
Severe malnutrition
CAD
Assessment and plan
Right hip pain with new onset of rash-
rash resolved
Suspect #1 referred to pain from a different joint #2 endocarditis #3 cellulitis
Wound cultures positive E. coli Staph aureus Streptococcus pyogenes,
BC no growth, MRSA negative
Cephalexin 500 mg p.o. 4 times daily through 08/24 at discharge
Follow for clinical signs
Monitor temperature curve and WBC
ID input appreciated
Doppler arterial study negative for PAD
PT/OT
For pain plan is to resume to oxycodone and as needed Tylenol at discharge
Right heel ulcer/eschar
Appreciate podiatry input
Risk of amputation with history of diabetes , x-ray negative for osteomyelitis or bone pathology.
Daily gauze dressing.
No weightbearing restrictions per podiatry
No surgical interventions per podiatry
Knee X ray -
FINDINGS/impression:
Trace suprapatellar effusion. Mild patellofemoral joint space narrowing. The medial and lateral joint spaces are maintained. There is evidence of medial and lateral meniscus chondrocalcinosis. No joint margin osteophyte formation. No erosion
Heart murmur
Keeping endocarditis as differential and patient having recent right hip pain with rash s/p ORIF
No recent echo, monitor temp and WBC
Kidney/liver transplant-2021
History of hepatitis C and liver cirrhosis
Continue tacrolimus and mycophenolate
Normocytic anemia
H&H stable
Chronic thrombocytopenia
Platelet dropped to 102
Monitor
IDDM
consideration to continue long acting insulin and short acting insulin at discharge
CAD
Continue aspirin
Severe malnutrition
Patient has been homeless for the past 2 months, he has no family support.
DVT prophylaxis- heparin
I and Dr. Pollock had a discussion with the patient about his home situation. As the patient is at risk of amputation of foot, it is better if patient goes home from the hospital. Informed patient that his family refused to take the
responsibility. Patient will be going to either a rehab facility or assisted home. Patient states that insurance does not cover rehab and he was not able to receive his medications when he was in rehab before. Patient decides to go to a Rehab
facility.
Anticipated Discharge: Today
Subjective/Interval History
-
Date of Service: August 20, 2023
Patient reports of going to a rehab facility
Objective Data
-
Labs:
Laboratory Results
08/20/23
06:42
WBC 4.6 L
Hgb 9.0 L
Hct 25.7 L
Plt Count 111 L
Sodium 136
Potassium 4.3
Chloride 106
Carbon Dioxide 22
BUN 43 H
Creatinine 1.7 H
Glucose 190 H
Calcium 8.5
Vital Signs:
Vital Signs
Temp Pulse Resp BP Pulse Ox
98.1 F 88 16 123/76 100
08/20/23 07:30 08/20/23 07:30 08/20/23 07:30 08/20/23 07:30 08/20/23 07:30
I&O
08/19/23 08/20/23 08/21/23
06:59 06:59 06:59
Intake Total 1320 / 1320 720 / 720
Output Total 1300 / 1300 250 / 250
Balance 20 / 20 470 / 470
Review of Systems
-
History Source: Patient
All other systems: Reviewed and negative
Physical Exam
-
General: Comfortable and Conversant
HEENT: Normocephalic and Atraumatic
Respiratory: Clear to Auscultation
Cardiac: Regular Rhythm, S1/S2 and Murmur
Musculoskeletal: No Edema
Data Reviewed
-
Labs: Labs Reviewed by me and Discussed with Physician
[2023-08-20] MEDS: NOVOLOG FLEXPEN 10 UNITS SC ×2 (10:01→13:10)
[2023-08-20] MEDS: ASPIR LOW (ENTERIC COATED) 81 MG PO (10:02)
[2023-08-20] MEDS: NOVOLOG FLEXPEN-HIGH RESISTANCE 3 UNITS SC (10:02)
[2023-08-20] MEDS: KEFLEX 500 MG PO ×4 (10:02→21:47)
[2023-08-20] MEDS: HEPARIN SC ×2 (10:03→20:21)
[2023-08-20] MEDS: COLACE PO ×2 (10:03→20:21)
[2023-08-20] MEDS: MIRALAX PO (10:05)
[2023-08-20] MEDS: PROGRAF 3 MG PO ×2 (10:07→21:38)
[2023-08-20] MEDS: MYFORTIC DELAYED REL. 180 MG PO ×2 (10:07→21:39)
[2023-08-20 12:00] LABS: Glucose - Point of Care 191 mg/dl (70-99)
[2023-08-20] MEDS: NOVOLOG FLEXPEN-HIGH RESISTANCE 2 UNITS SC (13:10)
[2023-08-20] MEDS: NSS 1000 IV (14:18)
[2023-08-20 16:00] VITALS: BP 127/69
[2023-08-20 16:27] LABS: Glucose - Point of Care 108 mg/dl (70-99)
[2023-08-20] MEDS: NOVOLOG FLEXPEN SC (16:27)
[2023-08-20] MEDS: NOVOLOG FLEXPEN-HIGH RESISTANCE SC (16:27)
[2023-08-20] MEDS: DAKIN'S SOLUTION 0.125% 1/4 STRENGTH 1 ML TOPICAL (16:30)
[2023-08-20 18:00] LABS: Glucose - Point of Care 142 mg/dl (70-99)
[2023-08-20] MEDS: LANTUS 0.149999999999999994 UNITS SC (21:40)
[2023-08-20 21:57] LABS: Glucose - Point of Care 265 mg/dl (70-99)
[2023-08-20 23:05] VITALS: BP 133/76
[2023-08-21] MEDS: DILAUDID 0.25 MG IV ×3 (01:03→09:13)
[2023-08-21] MEDS: TYLENOL PO (04:30)
[2023-08-21] MEDS: ROXICODONE 5 MG PO ×3 (04:41→18:02)
[2023-08-21 07:00] VITALS: BP 136/69
[2023-08-21 07:37] LABS: Hematocrit 26.1 % (39.0-52.0); Mean Corp Hgb Conc. 34.5 g/dL (33.0-37.0); Mean Corpuscular Hgb 28.7 pg (27.0-31.0); Mean Corpuscular Volume 83.1 fL (80.0-94.0); Mean Platelet Volume 10.3 fL (7.4-10.4); Platelet Count 119 10^3/uL (130-400); Red Blood Cell Count 3.14 10^6/uL (4.70-6.10); Red Cell Dist. Width 14.6 % (11.5-14.5); White Blood Cell Count 5.3 10^3/uL (4.8-10.8)
[2023-08-21 08:01] LABS: Glucose - Point of Care 213 mg/dl (70-99)
[2023-08-21 08:13] LABS: Blood Urea Nitrogen 48 mg/dl (9-20); Calcium 8.3 mg/dl (8.4-10.2); Carbon Dioxide 23 mmol/L (22-30); Chloride 109 mmol/L (98-107); Estimated Creatinine Clearance 46 ml/min; Glucose 187 mg/dl (70-99); Potassium 4.6 mmol/L (3.5-5.1); Sodium 137 mmol/L (135-145); eGFR 48.72
[2023-08-21] MEDS: PROGRAF 3 MG PO ×2 (09:09→20:09)
[2023-08-21] MEDS: MYFORTIC DELAYED REL. 180 MG PO ×2 (09:09→20:10)
[2023-08-21] MEDS: ASPIR LOW (ENTERIC COATED) 81 MG PO (09:10)
[2023-08-21] MEDS: COLACE PO ×2 (09:10→20:10)
[2023-08-21] MEDS: MIRALAX PO (09:10)
[2023-08-21] MEDS: HEPARIN SC ×2 (09:10→20:10)
[2023-08-21] MEDS: KEFLEX 500 MG PO ×4 (09:10→21:39)
[2023-08-21] MEDS: NOVOLOG FLEXPEN-HIGH RESISTANCE 4 UNITS SC (09:45)
[2023-08-21] MEDS: NOVOLOG FLEXPEN 10 UNITS SC ×3 (09:45→18:03)
[2023-08-21] MEDS: TYLENOL 650 MG PO ×2 (11:43→18:02)
--- NOTE | 2023-08-21 11:56 | W.DCSUMMARY ---
Addendum entered and electronically signed by Chitra Parker MD 08/22/23 14:34:
Actual discharge date 08/22/23. Discharge was delayed for disposition efforts.
Patient's creatinine returned to near baseline on last check. He will get repeat BMP on Thursday 08/24. Confirmed with CM, there will be no issues for patient receiving anti-rejection medications at SNF.
Addendum entered and electronically signed by Norma Pollock MD 08/21/23 13:51:
Fully read and agree with d/c summary as put forth by Dr. Cates.
Original Note:
Discharge Summary
Discharge Data
Date of Admission: 08/15/23
Date of Discharge: 08/21/23
-
Pending Results: No
Hospital Course
Discharging Physician : Dr Norma Pollock, Dr Talia Cates
Disposition : SNF
Primary care physician : unknown
Discharge diagnosis :
Right hip pain with new onset of rash
Right heel ulcer
Heart murmur
Kidney/liver transplant 2021
Normocytic anemia
Chronic thrombocytopenia
IDDM
Severe malnutrition
CAD
Hospital Course :
63-year-old male with history of liver and kidney transplant presented to the ED on 08/14 with right hip pain and a new rash. Patient in the ED vitals were stable, afebrile. patient lost 20 pounds since since his right hip surgery And he was
homeless for the past 2 months, living in his car. Patient also developed a blister blister on his right heel which was broken and was malodorous. Patient was started on vancomycin and Zosyn. On the x-ray there was no evidence of osteomyelitis.
There was no external evidence of PJI. His right hip surgical site is fully healed there is no warmth dehiscence or drainage. Over the 2 days patient's rash improved with abx. Labs showed normocytic anemia, chronic thrombocytopenia, H&H stable.
Blood cultures were negative, WBC count improved with antibiotics over the next day. Patient remained afebrile. Since he was having right hip pain, x-ray of the x ray of right knee was ordered which was negative, right heel x-ray and hip x-ray
was unremarkable.
Wound culture was positive for E. coli, MSSA, Streptococcus pyogens, MRSA negative. For right heel, daily gauze dressing and Krish to right heel where advised per podiatry. There have been no weightbearing restrictions, no surgical debridement
needed at this time. Patient was also started on Lantus 15 units, short acting insulin 13 units, high dose insulin sliding scale. Patient's blood glucose improved with these medications. Patient has a difficult living situation and had discussion
with his family if they could take the responsibility. Unfortunately they refused. Patient was left with very few options- rehab, [facility] homes or living back in his car. Patient was not keen in returning back to rehab as he stated that his
insurance does not pay for his medication. Later he was convinced to go to Rehab.
On the day of discharge patient's vitals are stable.
IDDM
Start Lantus 15 units, insulin lispro 13 units at discharge
Important imaging findings :
Extremity arterial study :
IMPRESSION: Normal study. Bilateral ankle and toe brachial indices within normal limits. Multiphasic waveforms from bilateral common femoral through popliteal arteries with no velocity elevation to suggest any significant stenosis. Continuous
Doppler waveforms of the dorsalis pedis and posterior tibial arteries also remain multiphasic.
Knee x-ray :
FINDINGS/impression:
Trace suprapatellar effusion. Mild patellofemoral joint space narrowing. The medial and lateral joint spaces are maintained. There is evidence of medial and lateral meniscus chondrocalcinosis. No joint margin osteophyte formation. No erosion
Hip x-ray:
IMPRESSION:
Status post dynamic compression screw fixation of right proximal femoral fracture. The fracture line appears to be healed radiographically. No evidence for new fracture. No evidence for displacement of fixation hardware.
CR Heel/os Calcis :
IMPRESSION: Slight irregularity is soft tissue posterior to the calcaneus on the lateral view, suggesting soft tissue defect as described in clinical history. No radiographic evidence for osteomyelitis.
Procedure findings : none
Discharge Plan
-
Activity Restrictions/Additional Instructions:
Wound Care Instructions
R heel-clean with 1/4 strength Dakin's solution, no sting barrier wipe to surrounding skin, adaptic, alginate, cover with silicone border foam and stockinet or ABD pad and Kerlix wrap, change daily and prn drainage.
R pressure relief shoe.
L heel-no sting barrier wipe (allow to dry), foam dressing, change q 3 days and prn loosened dressing.
Air mattress.
Soft heel relief boots as tolerated (i.e. TruVue lite boots); elevate heels off bed with pillows while boots off.
Pressure redistributing chair cushion (i.e. Air chair cushion).
Follow up with bed control specialist.
Follow up at wound care center call for an appointment.
Referrals:
Geneva Lantigua, [Family Provider] -
Prescriptions:
No Action
aspirin 81 mg Tablet,Delayed Release (Dr/Ec)
81 mg PO DAILY
tacrolimus 1 mg Capsule
3 mg PO Q12H@799,1999
Patient Comments:
08/15/2023, last filled on 12/23/2023 for 30-day supply.
insulin lispro 100 unit/mL insulin pen
0 sliding scale dose SC DIRECTED
Patient Comments:
08/15/2023, pt. uses this med. on a sliding scale but does not know what that sliding scale is; per pt., if his BS is around 270 he will inject 6 units.
mycophenolate sodium 180 mg Tablet,Delayed Release (Dr/Ec)
180 mg PO Q12H@799,1999
Patient Comments:
08/15/2023, last filled on 12/23/2023 for 30-day supply.
oxycodone 10 mg Tablet
10 mg PO BID PRN (Reason: severe pain)
Patient Comments:
08/15/2023, last filled on 07/24/2023 for 30 tablets per PDMP.
Discharge Date and Time
Print Language: KISWAHILI
[2023-08-21 12:31] LABS: Glucose - Point of Care 175 mg/dl (70-99)
[2023-08-21] MEDS: NOVOLOG FLEXPEN-HIGH RESISTANCE 2 UNITS SC ×2 (12:56→18:03)
--- NOTE | 2023-08-21 13:08 | W.PN.HOSP.TC ---
Today's Communication/Plan
-
d/c to SNF
Assessment / Plan
Assessment / Plan
pt is a 63 year old male
Right hip pain with new onset of rash--resolved--no abnormalities noticed on x-ray--apprec ortho--adjust pain meds--blood cultures negative--Wound cultures shows E. coli, Staph aureus, Strep pyogenes--IV Zosyn and vancomycin being changed to
cephalexin through 08/25/23--d/c planning--pt says his insurance won't pay for his antirejection meds if he is in rehab--family cannot take him in--now agreeable to SNF
Right heel pressure ulcer (POA)-- apprec podiatry--no need for surgical debridement--arterial US normal--local wound care
Heart murmur--known per pt-- endocarditis less likely as blood cultures neg to date--should have echo at some point--Will continue antibiotics as per ID
Kidney/liver transplant-2021--History of hepatitis C and liver cirrhosis--Continue tacrolimus and mycophenolate
mild ROXY--will give IVF x 1L--follow
Normocytic anemia--H&H stable
Chronic thrombocytopenia---Monitor
IDDM--Insulin sliding scale and Levemir 10 units
CAD--Continue aspirin
Severe protein calorie malnutrition--affects wound healing
DVT prophylaxis- heparin
CODE STATUS -- FULL CODE
Anticipated Discharge: Today
Subjective/Interval History
-
Date of Service: August 21, 2023
pt asking if SNF set up yet
Objective Data
-
Labs:
Laboratory Results
08/21/23
07:00
WBC 5.3
Hgb 9.0 L
Hct 26.1 L
Plt Count 119 L
Sodium 137
Potassium 4.6
Chloride 109 H
Carbon Dioxide 23
BUN 48 H
Creatinine 1.6 H
Glucose 187 H
Calcium 8.3 L
Vital Signs:
max temp for 24 hours
08/20/23
16:00
Temp 98.4 F
Vital Signs
Temp Pulse Resp BP Pulse Ox
98.4 F 90 18 136/69 99
08/21/23 07:00 08/21/23 07:00 08/21/23 07:00 08/21/23 07:00 08/21/23 09:05
I&O
08/20/23 08/21/23 08/22/23
06:59 06:59 06:59
Intake Total 720 / 720 1680 / 1680
Output Total 250 / 250
Balance 470 / 470 1680 / 1680
Review of Systems
-
All other systems: Reviewed and negative
Physical Exam
-
General: Well Developed, Well Nourished and No Apparent Distress
HEENT: Normocephalic and Atraumatic
Respiratory: Clear to Auscultation; Negative Wheezes or Rhonchi
Cardiac: Regular Rhythm and S1/S2; Negative Murmur
GI: Soft, Nontender, Nondistended and Normal Bowel Sounds
Musculoskeletal: No Clubbing, No Cyanosis and No Edema
Neuro: Awake
--- NOTE | 2023-08-21 14:49 | W.PN.ID1 ---
Date of Service
Date of Service: August 21, 2023
Today's Communication
continue cephalexin 500mg po qid through 08/25/23.
Assessment / Plan
Diabetic Foot Wound
DM2 - controlled
Liver/Kidney Transplantation - 2021
CKD
- wound cx: moderate e coli, many MSSA, many GAS
- blood cultures x2 in progress, no growth to date
- continue cephalexin 500mg po qid through 08/25/23.
- appreciate wound care/podiatry
- MICHELLE normal
- rediscussed need for offloading as patient noncompliant - including risk of amputation and higher risk of infection with need for transplant medications; he expressed understanding and agreement
Chief Complaint
-: Cellulitis
Subjective / Review of Systems
afebrile
bp stable
not compliant with heel booties - lying with pressure on the wound - discussed again with patient
Vital Signs / Physical Exam
Vital Signs
Vital Signs
Temp Pulse Resp BP Pulse Ox
98.4 F 90 18 136/69 99
08/21/23 07:00 08/21/23 07:00 08/21/23 07:00 08/21/23 07:00 08/21/23 09:05
Physical Exam
Constitutional: No Acute Distress
Cardiovascular: Regular Rate and S1/S2; Negative Murmur or Rub
Pulmonary: Clear and Symmetric; Negative Wheezes or Rales
Gastrointestinal: Soft, Non Tender, Non Distended and Normal Bowel Sounds
Skin: Warm and Dry; Negative Rash or Jaundice
Wound: Other (heel ulcer clean, no erythema, warmth, tenderness or drainage; hip surgical site no erythema, warmth, tenderness or drainage)
Objective Data
Lab Data
Lab Results
08/21/23 07:00
08/21/23 07:00
Estimated Creat Clear 46 ml/min 05/13/24 07:00
Lactic Acid Cancelled 08/15/23 23:30
Total Bilirubin 0.5 mg/dl (0.2-1.3) D 08/18/23 06:07
AST 10 U/L (17-59) L 08/18/23 06:07
ALT < 10 U/L (0-50) 08/18/23 06:07
Alkaline Phosphatase 76 U/L (38-126) 08/18/23 06:07
Most recent labs reviewed.
Micro Results:
08/15/23 20:25 Blood Culture - Final
Blood/Venous No Growth - Final Report
08/15/23 19:20 Blood Culture - Final
Blood/Venous No Growth - Final Report
08/15/23 19:37 Wound Culture - Final
Heel - Right Escherichia coli
S aureus-Methicillin Sensitive
Streptococcus pyogenes
Gram Stain - Final
08/16/23 00:42 MRSA Screen - Final
Nose No Methicillin Resistant Staphylococcus aureus isolated.
[2023-08-21 15:00] VITALS: BP 156/78
[2023-08-21] MEDS: DAKIN'S SOLUTION 0.125% 1/4 STRENGTH 10 ML TOPICAL (15:38)
[2023-08-21] MEDS: DILAUDID 0.5 MG IV ×2 (15:38→21:41)
--- NOTE | 2023-08-21 16:21 | CM ---
Received call from Susu in admissions at [facility] who offered acceptance. Patient wanted to review list again and stated that he would like referral sent to [facility] as well. Will send referral to [facility]. He stated that if [facility] can't accept, he
will go to [facility].
Plan: Case management will continue to follow and assist with discharge planning. [facility]
[2023-08-21 16:57] LABS: Glucose - Point of Care 163 mg/dl (70-99)
[2023-08-21] MEDS: LANTUS 0.149999999999999994 UNITS SC (21:40)
[2023-08-21 21:42] LABS: Glucose - Point of Care 138 mg/dl (70-99)
[2023-08-21 23:00] VITALS: BP 126/68
[2023-08-22] MEDS: TYLENOL PO ×3 (00:50→23:31)
[2023-08-22] MEDS: DILAUDID 0.5 MG IV ×4 (03:43→22:23)
[2023-08-22 07:00] VITALS: BP 114/61
[2023-08-22 07:48] LABS: Glucose - Point of Care 167 mg/dl (70-99)
[2023-08-22] MEDS: PROGRAF 3 MG PO ×2 (08:31→20:38)
[2023-08-22] MEDS: KEFLEX 500 MG PO ×4 (08:31→22:26)
[2023-08-22] MEDS: HEPARIN SC ×2 (08:31→20:38)
[2023-08-22] MEDS: ASPIR LOW (ENTERIC COATED) 81 MG PO (08:31)
[2023-08-22] MEDS: MYFORTIC DELAYED REL. 180 MG PO ×2 (08:31→20:38)
[2023-08-22] MEDS: MIRALAX PO (08:32)
[2023-08-22] MEDS: COLACE PO ×2 (08:32→20:38)
[2023-08-22] MEDS: NOVOLOG FLEXPEN 10 UNITS SC ×3 (09:49→18:15)
[2023-08-22] MEDS: NOVOLOG FLEXPEN-HIGH RESISTANCE 2 UNITS SC ×2 (09:49→18:16)
--- NOTE | 2023-08-22 10:18 | W.PN.HOSP.TC ---
Today's Communication/Plan
-
dispo planning
Assessment / Plan
Assessment / Plan
pt is a 63 year old male
Right hip pain with new onset of rash--resolved--no abnormalities noticed on x-ray--apprec ortho--adjust pain meds-
Right heel pressure ulcer (POA)
Diabetic Foot wound-- apprec podiatry--no need for surgical debridement--arterial US normal
-blood cultures negative--Wound cultures shows E. coli, Staph aureus, Strep pyogenes--IV Zosyn and vancomycin being changed to cephalexin through 08/25/23--d/c planning---family cannot take him in--now agreeable to SNF
Heart murmur--known per pt
Kidney/liver transplant-2021--History of hepatitis C and liver cirrhosis--Continue tacrolimus and mycophenolate
mild ROXY--will give IVF x 1L--follow
Normocytic anemia--H&H stable
Chronic thrombocytopenia---Monitor
IDDM--Insulin sliding scale and Levemir 10 units
CAD--Continue aspirin
Severe protein calorie malnutrition--affects wound healing
DVT prophylaxis- heparin
CODE STATUS -- FULL CODE
Anticipated Discharge: Within 24 hours
Subjective/Interval History
-
Date of Service: August 22, 2023
no new complaints
Objective Data
-
Vital Signs:
Vital Signs
Temp Pulse Resp BP Pulse Ox
98.3 F 92 16 114/61 98
08/22/23 07:00 08/22/23 07:00 08/22/23 07:00 08/22/23 07:00 08/22/23 08:45
I&O
08/21/23 08/22/23 08/23/23
06:59 06:59 06:59
Intake Total 1680 / 1680 1320 / 1320
Balance 1680 / 1680 1320 / 1320
Review of Systems
-
History Source: Patient
All other systems: Reviewed and negative
Physical Exam
-
General: No Apparent Distress
HEENT: PERRLA
Respiratory: Clear to Auscultation; Negative Wheezes or Rhonchi
Cardiac: Regular Rhythm and S1/S2; Negative Murmur
GI: Soft, Nontender, Nondistended and Normal Bowel Sounds
Musculoskeletal: No Clubbing, No Cyanosis and No Edema
Neuro: Awake
Psych: Calm
Data Reviewed
-
Diagnostic Radiology: Report Reviewed by me
Labs: Labs Reviewed by me
--- NOTE | 2023-08-22 10:32 | W.PN.ID1 ---
Date of Service
Date of Service: August 22, 2023
Today's Communication
- continue cephalexin 500mg po qid through 08/25/23.
ID service will no longer actively follow this patient please recall for further questions
Assessment / Plan
Diabetic Foot Wound
DM2 - controlled
Liver/Kidney Transplantation - 2021
CKD
- wound cx: moderate e coli, many MSSA, many GAS
- blood cultures x2 in progress, no growth to date
- continue cephalexin 500mg po qid through 08/25/23.
ID service will no longer actively follow this patient please recall for further questions
Chief Complaint
-: Cellulitis
Subjective / Review of Systems
afebrile
bp stable
tolerating antibiotics
no complaints
Vital Signs / Physical Exam
Vital Signs
Vital Signs
Temp Pulse Resp BP Pulse Ox
98.3 F 92 16 114/61 98
08/22/23 07:00 08/22/23 07:00 08/22/23 07:00 08/22/23 07:00 08/22/23 08:45
Physical Exam
Constitutional: No Acute Distress
Cardiovascular: Regular Rate and S1/S2; Negative Murmur or Rub
Pulmonary: Clear and Symmetric; Negative Wheezes or Rales
Gastrointestinal: Soft, Non Tender, Non Distended and Normal Bowel Sounds
Skin: Warm and Dry; Negative Rash or Jaundice
Wound: Other (dressing take down deferred)
Lines: Other (offloading boot in place)
Objective Data
Lab Data
Lab Results
08/21/23 07:00
08/21/23 07:00
Estimated Creat Clear 46 ml/min 08/21/23 07:00
Lactic Acid Cancelled 08/15/23 23:30
Total Bilirubin 0.5 mg/dl (0.2-1.3) D 08/18/23 06:07
AST 10 U/L (17-59) L 08/18/23 06:07
ALT < 10 U/L (0-50) 08/18/23 06:07
Alkaline Phosphatase 76 U/L (38-126) 08/18/23 06:07
Most recent labs reviewed.
Micro Results:
08/15/23 20:25 Blood Culture - Final
Blood/Venous No Growth - Final Report
08/15/23 19:20 Blood Culture - Final
Blood/Venous No Growth - Final Report
08/15/23 19:37 Wound Culture - Final
Heel - Right Escherichia coli
S aureus-Methicillin Sensitive
Streptococcus pyogenes
Gram Stain - Final
08/16/23 00:42 MRSA Screen - Final
Nose No Methicillin Resistant Staphylococcus aureus isolated.
[2023-08-22 12:14] LABS: Glucose - Point of Care 259 mg/dl (70-99)
[2023-08-22] MEDS: TYLENOL 650 MG PO ×2 (12:42→18:15)
[2023-08-22] MEDS: NOVOLOG FLEXPEN-HIGH RESISTANCE 7 UNITS SC (12:52)
[2023-08-22] MEDS: ROXICODONE 5 MG PO ×2 (12:53→18:21)
--- NOTE | 2023-08-22 14:27 | CM ---
Addendum entered by MAURIZIO Cee 08/22/23 15:02:
Spoke with attending who stated that she will medically clear patient in the am as there are some outstanding labs. [facility]
Original Note:
Received message from attending asking if patient will be provided with his anti-rejection medications.
Spoke with Susu in admissions who stated that patient has availability at [facility] and [facility].
Met with patient to review options and he selected to go to [facility].
Placed a call to Susu in admissions at [facility] who confirmed that they will give patient his medications. Will update attending
Plan: Case management will continue to follow and assist with discharge planning. [facility].
[2023-08-22 15:00] VITALS: BP 116/71
[2023-08-22 15:22] LABS: Blood Urea Nitrogen 58 mg/dl (9-20); Calcium 8.3 mg/dl (8.4-10.2); Carbon Dioxide 21 mmol/L (22-30); Chloride 107 mmol/L (98-107); Estimated Creatinine Clearance 46 ml/min; Glucose 187 mg/dl (70-99); Potassium 4.7 mmol/L (3.5-5.1); Sodium 136 mmol/L (135-145); eGFR 48.72
--- NOTE | 2023-08-22 15:37 | W.PN.UPDATE ---
Update Note
Progress Note Update
renal function mildly above baseline
patient confirms he never stopped taking immunosuppressants
improved a couple of days ago with fluids
will trial another bolus 500cc
F/U urine studies; bladder scan
Tacrolimus level tomorrow AM
If stable/improved tomorrow OK for DC
If worsening will touch base with renal
[2023-08-22 16:20] VITALS: BP 135/90; PULSE 76; O2SAT 93
[2023-08-22] MEDS: NSS 500 IV (16:33)
[2023-08-22 16:47] LABS: Glucose - Point of Care 197 mg/dl (70-99)
[2023-08-22] MEDS: DAKIN'S SOLUTION 0.125% 1/4 STRENGTH 10 ML TOPICAL (18:17)
--- NOTE | 2023-08-22 19:08 | PTCARENOTE ---
pt informed need for PVR and urine sample. instructed to alert staff when applicable
[2023-08-22 21:18] LABS: Glucose - Point of Care 160 mg/dl (70-99)
[2023-08-22] MEDS: LANTUS 0.149999999999999994 UNITS SC (22:22)
[2023-08-22 23:15] VITALS: BP 114/59
--- NOTE | 2023-08-22 23:16 | PTCARENOTE ---
PVR 200ml per bladder scan. Results TT to Dr. Parker as requested. No new orders received. Care ongoing.
[2023-08-23 02:49] LABS: Urine Sodium 60 mmol/L (30-90)
[2023-08-23] MEDS: TYLENOL PO (04:44)
[2023-08-23] MEDS: DILAUDID 0.5 MG IV ×2 (04:46→10:46)
[2023-08-23 07:00] VITALS: BP 106/57
[2023-08-23 07:30] LABS: Blood Urea Nitrogen 58 mg/dl (9-20); Calcium 8.4 mg/dl (8.4-10.2); Carbon Dioxide 21 mmol/L (22-30); Chloride 108 mmol/L (98-107); Estimated Creatinine Clearance 46 ml/min; Glucose 137 mg/dl (70-99); Potassium 5.4 mmol/L (3.5-5.1); Sodium 136 mmol/L (135-145); eGFR 48.72
[2023-08-23 07:45] LABS: Glucose - Point of Care 152 mg/dl (70-99)
[2023-08-23] MEDS: NOVOLOG FLEXPEN 10 UNITS SC ×3 (08:43→17:10)
[2023-08-23] MEDS: NOVOLOG FLEXPEN-HIGH RESISTANCE 2 UNITS SC (08:44)
[2023-08-23] MEDS: MYFORTIC DELAYED REL. 180 MG PO ×2 (08:45→21:10)
[2023-08-23] MEDS: COLACE PO ×2 (08:45→21:02)
[2023-08-23] MEDS: KEFLEX 500 MG PO ×4 (08:45→21:10)
[2023-08-23] MEDS: DAKIN'S SOLUTION 0.125% 1/4 STRENGTH 1 ML TOPICAL (08:45)
[2023-08-23] MEDS: ASPIR LOW (ENTERIC COATED) 81 MG PO (08:45)
[2023-08-23] MEDS: PROGRAF 3 MG PO ×2 (08:45→21:10)
[2023-08-23] MEDS: MIRALAX PO (08:46)
[2023-08-23] MEDS: HEPARIN SC ×2 (08:46→21:02)
[2023-08-23] MEDS: ROXICODONE 5 MG PO ×4 (08:54→21:11)
--- NOTE | 2023-08-23 10:12 | CM ---
Addendum entered by MAURIZIO Cee 08/24/23 09:01:
Late entry note-Received notification from Susu in admissions at [facility] who stated that patient is in fact out of rehab days. She relayed that he would have to go to [facility] and start the process for an [facility] cherri. He would get his
rehab covered under part b and the medicaid/NH cherri would cover the stay but he will have to do an application which he has been hesitant to complete in the past. Will talk to patient.
Original Note:
Received message from attending that patient is not medically stable for discharge. Spoke with Susu in admissions at [facility] to update. Susu stated that she has to explore patient's benefits further as [facility] out of [facility] days. She stated that she looked prior, and thought that patient had 34 days left. Susu stated that she will explore patient's benefits to determine which is true. Will meet with patient today to obtain approx amount of
time he has spent in SNF over the past few months.
Plan: Case management will continue to follow and assist with discharge planning. Hopeful transfer to [facility] upon medical clearance.
[2023-08-23] MEDS: LOKELMA 10 GRAM PO (10:40)
--- NOTE | 2023-08-23 11:02 | W.PN.HOSP.TC ---
Today's Communication/Plan
-
see plan
Assessment / Plan
Assessment / Plan
pt is a 63 year old male
Right heel pressure ulcer (POA)
Diabetic Foot wound-- apprec podiatry--no need for surgical debridement--arterial US normal
-blood cultures negative, Wound cultures shows E. coli, Staph aureus, Strep pyogenes
-s/p IV Zosyn and vancomycin now changed to cephalexin through 08/25/23--d/c planning---family cannot take him in--now agreeable to SNF
Heart murmur--known per pt
Kidney/liver transplant-2021--History of hepatitis C and liver cirrhosis--Continue tacrolimus and mycophenolate
mild ROXY- creatinine baseline was ~ 1.2-1.3 earlier this month; now stable at 1.6. Patient is not retaining (bladder scan 200); FeNa 0.6%. creatinine didn't change with small fluid bolus
-may be AE vanc/Zosyn (now stopped)
-Tacrolimus level pending from this morning
-discussed briefly with renal; will monitor renal function one more day while awaiting Tacrolimus level
mild hyperK
-lokelma x 1
-repeat this afternoon
Lower Back pain
Right Hip Pain
Sciatica - description of pain traveling down lower back to groin/leg
-appreciate ortho consult
X-rays of the right hip demonstrate a healed right hip fracture. Hardware is intact with no signs of loosening or failure.
X-rays of the right knee demonstrate mild degenerative changes with medial and lateral compartment chondrocalcinosis.
-*patient has been asking for frequent IV dilaudid. Given approaching DC --> stop Dilaudid
-I wanted to start Gabapentin but patient refuses stating 'I'm cautious what I take with my liver' I described starting a very low dose but he refuses
-I wanted to order lidocaine patch but patient refuses stating it doesn't work
-ultimately needs PT
-I will stop IV dilaudid and continue oral oxycodone PRN
Normocytic anemia--H&H stable
Chronic thrombocytopenia---Monitor
IDDM--Insulin sliding scale and Levemir 10 units
CAD--Continue aspirin
Severe protein calorie malnutrition--affects wound healing
DVT prophylaxis- heparin
CODE STATUS -- FULL CODE
Anticipated Discharge: 24 - 48 hours
Subjective/Interval History
-
Date of Service: August 23, 2023
patient complains of pain lower back extending down right buttocks and groin down leg
states IV dilaudid helps, wants an increase in frequency
Objective Data
-
Labs:
Laboratory Results
08/23/23 08/23/23 08/23/23
06:48 11:00 16:00
Sodium 136
Potassium 5.4 H Cancelled Pending
Chloride 108 H
Carbon Dioxide 21 L
BUN 58 H
Creatinine 1.6 H
Glucose 137 H
Calcium 8.4
Vital Signs:
Vital Signs
Temp Pulse Resp BP Pulse Ox
98.1 F 89 18 106/57 97
08/23/23 07:00 08/23/23 07:00 08/23/23 07:00 08/23/23 07:00 08/23/23 07:00
I&O
08/22/23 08/23/23 08/24/23
06:59 06:59 06:59
Intake Total 1320 / 1320 1160 / 1160
Balance 1320 / 1320 1160 / 1160
Review of Systems
-
History Source: Patient
All other systems: Reviewed and negative
Physical Exam
-
General: No Apparent Distress
HEENT: PERRLA
Respiratory: Clear to Auscultation; Negative Wheezes or Rhonchi
Cardiac: Regular Rhythm and S1/S2; Negative Murmur
GI: Soft, Nontender, Nondistended and Normal Bowel Sounds
Musculoskeletal: No Clubbing, No Cyanosis and No Edema
Neuro: Awake
Psych: Calm
Data Reviewed
-
Diagnostic Radiology: Report Reviewed by me
Labs: Labs Reviewed by me
[2023-08-23 12:32] LABS: Glucose - Point of Care 149 mg/dl (70-99)
[2023-08-23] MEDS: NOVOLOG FLEXPEN-HIGH RESISTANCE 1 UNITS SC (13:09)
[2023-08-23] MEDS: TYLENOL 650 MG PO ×2 (13:11→17:08)
[2023-08-23 15:00] VITALS: BP 113/64
[2023-08-23 16:38] LABS: Potassium 5.2 mmol/L (3.5-5.1)
[2023-08-23 16:41] LABS: Glucose - Point of Care 202 mg/dl (70-99)
[2023-08-23] MEDS: LIORESAL 2.5 MG PO (17:08)
[2023-08-23] MEDS: NOVOLOG FLEXPEN-HIGH RESISTANCE 4 UNITS SC (17:09)
[2023-08-23 21:16] LABS: Glucose - Point of Care 101 mg/dl (70-99)
[2023-08-23] MEDS: LANTUS 0.149999999999999994 UNITS SC (21:16)
[2023-08-23 23:11] VITALS: BP 122/54
[2023-08-24] MEDS: TYLENOL PO ×2 (00:44→23:21)
[2023-08-24] MEDS: TYLENOL 650 MG PO ×3 (05:37→17:23)
[2023-08-24] MEDS: ROXICODONE 5 MG PO ×4 (05:38→22:40)
[2023-08-24 07:24] LABS: Blood Urea Nitrogen 61 mg/dl (9-20); Calcium 8.8 mg/dl (8.4-10.2); Carbon Dioxide 22 mmol/L (22-30); Chloride 108 mmol/L (98-107); Estimated Creatinine Clearance 46 ml/min; Glucose 152 mg/dl (70-99); Potassium 5.5 mmol/L (3.5-5.1); Sodium 138 mmol/L (135-145); eGFR 48.72
[2023-08-24 07:43] VITALS: BP 153/87
[2023-08-24 07:55] LABS: Glucose - Point of Care 150 mg/dl (70-99)
[2023-08-24] MEDS: KEFLEX 500 MG PO ×4 (09:49→22:35)
[2023-08-24] MEDS: HEPARIN 5000 UNITS SC (09:49)
[2023-08-24] MEDS: MYFORTIC DELAYED REL. 180 MG PO ×2 (09:49→19:47)
[2023-08-24] MEDS: PROGRAF 3 MG PO ×2 (09:49→19:47)
[2023-08-24] MEDS: ASPIR LOW (ENTERIC COATED) 81 MG PO (09:49)
[2023-08-24] MEDS: LOKELMA 10 GRAM PO ×2 (09:50→16:55)
[2023-08-24] MEDS: COLACE PO ×2 (09:50→19:49)
[2023-08-24] MEDS: MIRALAX PO (09:50)
[2023-08-24] MEDS: NOVOLOG FLEXPEN 10 UNITS SC ×3 (09:55→18:18)
[2023-08-24] MEDS: NOVOLOG FLEXPEN-HIGH RESISTANCE 2 UNITS SC (09:56)
--- NOTE | 2023-08-24 10:45 | CM ---
Spoke with patient regarding that he has limited days under his Medicare and due to that, he can, per admissions complete an application for an NH cherri and have PT/OT under his Part B. Per conversation with admissions, patient would have to go to
[facility] as [facility] will not accept an NH cherri.
Patient became agitated and stated that if that is the case, he just will not go. Patient agreeable to only [facility] and relayed that he will complete paperwork for NH cherri for that facility only otherwise he will go home.
Placed a call to Susu in admissions but had to leave a voice mail message.
Plan: Case management will continue to follow and assist with discharge planning. Will await return call from admissions at [facility] to determine if patient can go to [facility], and if they can start the NH cherri process there at facility.
--- NOTE | 2023-08-24 11:19 | W.PN.HOSP.TC ---
Today's Communication/Plan
-
hopefully DC tomorrow once K stabilized
Assessment / Plan
Assessment / Plan
pt is a 63 year old male
Right heel pressure ulcer (POA)
Diabetic Foot wound-- apprec podiatry--no need for surgical debridement--arterial US normal
-blood cultures negative, Wound cultures shows E. coli, Staph aureus, Strep pyogenes
-s/p IV Zosyn and vancomycin now changed to cephalexin through 08/25/23--d/c planning---family cannot take him in--now agreeable to SNF
Heart murmur--known per pt
Kidney/liver transplant-2021--History of hepatitis C and liver cirrhosis--Continue tacrolimus and mycophenolate
-Tacrolimus level this AM OK
-patient follows with [facility] and states he has an upcoming appointment within next month
mild ROXY- creatinine baseline was ~ 1.2-1.3 earlier this month; now stable at 1.6. Patient is not retaining (bladder scan 200); FeNa 0.6%. creatinine didn't change with small fluid bolus and patient's K increased
-may be AE vanc/Zosyn (now stopped)
-Tacrolimus level OK
-discussed briefly with renal; OK with plan with close follow up labs
mild hyperK
-may be AE antibiotics? patient not dehydrated
-give additional Lokelma and monitor
-repeat labs
Lower Back pain
Right Hip Pain
Sciatica - description of pain traveling down lower back to groin/leg
-appreciate ortho consult
X-rays of the right hip demonstrate a healed right hip fracture. Hardware is intact with no signs of loosening or failure.
X-rays of the right knee demonstrate mild degenerative changes with medial and lateral compartment chondrocalcinosis.
-*patient has been asking for frequent IV dilaudid. Given approaching DC --> stop Dilaudid
-I wanted to start Gabapentin but patient refuses stating 'I'm cautious what I take with my liver' I described starting a very low dose but he refuses
-I wanted to order lidocaine patch but patient refuses stating it doesn't work
-ultimately needs PT
-I will stop IV dilaudid and continue oral oxycodone PRN
Normocytic anemia--H&H stable
Chronic thrombocytopenia---Monitor
IDDM--Insulin sliding scale and Levemir 10 units
CAD--Continue aspirin
Severe protein calorie malnutrition--affects wound healing
DVT prophylaxis- heparin
CODE STATUS -- FULL CODE
Anticipated Discharge: Within 24 hours
Subjective/Interval History
-
Date of Service: August 24, 2023
continues to have pain right hip
no other complaints
Objective Data
-
Labs:
Laboratory Results
08/24/23 08/24/23
06:33 14:00
Sodium 138
Potassium 5.5 H Pending
Chloride 108 H
Carbon Dioxide 22
BUN 61 H
Creatinine 1.6 H
Glucose 152 H
Calcium 8.8
Vital Signs:
Vital Signs
Temp Pulse Resp BP Pulse Ox
98 F 90 16 153/87 99
08/24/23 07:43 08/24/23 07:43 08/24/23 07:43 08/24/23 07:43 08/24/23 07:43
I&O
08/23/23 08/24/23 08/25/23
06:59 06:59 06:59
Intake Total 1160 / 1160 1680 / 1680
Output Total 1350 / 1350
Balance 1160 / 1160 330 / 330
Review of Systems
-
History Source: Patient
All other systems: Reviewed and negative
Physical Exam
-
General: No Apparent Distress
HEENT: PERRLA
Respiratory: Clear to Auscultation; Negative Wheezes or Rhonchi
Cardiac: Regular Rhythm and S1/S2; Negative Murmur
GI: Soft, Nontender, Nondistended and Normal Bowel Sounds
Musculoskeletal: No Clubbing, No Cyanosis and No Edema
Neuro: Awake
Psych: Calm
Data Reviewed
-
Diagnostic Radiology: Report Reviewed by me
Labs: Labs Reviewed by me
[2023-08-24] MEDS: DILAUDID 0.5 MG IV (12:21)
[2023-08-24 12:22] LABS: Glucose - Point of Care 153 mg/dl (70-99)
[2023-08-24 12:27] VITALS: BP 127/73; PULSE 89; O2SAT 99
[2023-08-24] MEDS: NOVOLOG FLEXPEN-HIGH RESISTANCE 3 UNITS SC (13:47)
--- NOTE | 2023-08-24 15:23 | PN.CDI ---
CDI
- -
CDI:
Physician Documentation Request
Admit Date: 08/15/23 21:21
Dear Doctor Keith,
Patient admitted with right hip cellulitis.
5/9 WBC 4.7, RBC 3.12 and platelet count 96
5/10 WBC 3.9, RBC 3.29 and platelet count 109
5/12 WBC 4.6, RBC 3.12 and platelet count 111.
Based on the above, please clarify in the progress notes, the appropriate diagnosis, if significant, that supports the above abnormalities and additional evaluation, monitoring and/or treatment rendered:
Pancytopenia
Insignificant abnormal lab findings
Other
Use of terms such as suspected, likely, concern for, or probable (associated with a specific diagnosis that is being evaluated, monitored, or treated as if it exists) are acceptable and can be coded in the inpatient setting, when documented at the
time of discharge.
Thank you,
Samia HUA,RN,CCDS
CDI Specialist
Available via [employer] text
Please use your independent medical judgment in providing your response.
[2023-08-24 15:37] VITALS: BP 131/74
[2023-08-24 16:33] LABS: Glucose - Point of Care 79 mg/dl (70-99)
[2023-08-24] MEDS: NOVOLOG FLEXPEN-HIGH RESISTANCE SC (17:23)
[2023-08-24] MEDS: DAKIN'S SOLUTION 0.125% 1/4 STRENGTH 10 ML TOPICAL (17:29)
[2023-08-24] MEDS: HEPARIN SC (19:49)
[2023-08-24 21:42] LABS: Glucose - Point of Care 111 mg/dl (70-99)
[2023-08-24] MEDS: LANTUS 0.149999999999999994 UNITS SC (22:35)
[2023-08-24 23:00] VITALS: BP 103/50
[2023-08-25] MEDS: ROXICODONE 5 MG PO ×2 (03:09→09:37)
[2023-08-25] MEDS: TYLENOL 650 MG PO ×3 (05:19→17:20)
[2023-08-25 06:38] LABS: Blood Urea Nitrogen 71 mg/dl (9-20); Calcium 8.3 mg/dl (8.4-10.2); Carbon Dioxide 24 mmol/L (22-30); Chloride 108 mmol/L (98-107); Estimated Creatinine Clearance 37 ml/min; Glucose 138 mg/dl (70-99); Potassium 5.8 mmol/L (3.5-5.1); Sodium 137 mmol/L (135-145); eGFR 37.27
[2023-08-25 07:49] VITALS: BP 145/73
[2023-08-25 08:08] LABS: Glucose - Point of Care 117 mg/dl (70-99)
[2023-08-25] MEDS: NOVOLOG FLEXPEN-HIGH RESISTANCE 1 UNITS SC (08:30)
[2023-08-25] MEDS: NOVOLOG FLEXPEN-HIGH RESISTANCE SC (08:40)
[2023-08-25] MEDS: MIRALAX PO ×2 (09:17→09:44)
[2023-08-25] MEDS: KEFLEX 500 MG PO ×4 (09:17→21:21)
[2023-08-25] MEDS: ASPIR LOW (ENTERIC COATED) 81 MG PO (09:17)
[2023-08-25] MEDS: HEPARIN SC ×3 (09:18→20:01)
[2023-08-25] MEDS: COLACE PO ×3 (09:18→20:01)
[2023-08-25] MEDS: NOVOLOG FLEXPEN 10 UNITS SC ×2 (09:20→11:42)
[2023-08-25] MEDS: MYFORTIC DELAYED REL. 180 MG PO ×2 (09:25→20:00)
[2023-08-25] MEDS: DAKIN'S SOLUTION 0.125% 1/4 STRENGTH 473 ML TOPICAL (09:25)
[2023-08-25] MEDS: PROGRAF 3 MG PO ×2 (09:26→20:00)
--- NOTE | 2023-08-25 10:33 | W.PN.HOSP.TC ---
Addendum entered and electronically signed by Chitra Parker MD 08/25/23 11:39:
pancytopenia
in setting recent infection
monitor
Original Note:
Today's Communication/Plan
-
renal US
formal renal consult
Assessment / Plan
Assessment / Plan
pt is a 63 year old male
Right heel pressure ulcer (POA)
Diabetic Foot wound-- apprec podiatry--no need for surgical debridement--arterial US normal
-blood cultures negative, Wound cultures shows E. coli, Staph aureus, Strep pyogenes
-s/p IV Zosyn and vancomycin now changed to cephalexin through 08/25/23
--now agreeable to SNF
Heart murmur--known per pt
Kidney/liver transplant-2021--History of hepatitis C and liver cirrhosis--Continue tacrolimus and mycophenolate
-Tacrolimus level OK
-patient follows with [facility] and states he has an upcoming appointment within next month
ROXY- creatinine baseline was ~ 1.2-1.3 earlier this month;
Hyperkalemia
-was stable at 1.6 but now up to 2 this AM with K 5.8
Patient is not retaining (bladder scan 200); FeNa 0.6%. creatinine didn't change with small fluid bolus and patient's K increased
-may be AE vanc/Zosyn (now stopped)
-Tacrolimus level OK
-renal US today
-formal renal consult today
Lower Back pain
Right Hip Pain
Sciatica - description of pain traveling down lower back to groin/leg
-appreciate ortho consult
-X-rays of the right hip demonstrate a healed right hip fracture. Hardware is intact with no signs of loosening or failure.
-X-rays of the right knee demonstrate mild degenerative changes with medial and lateral compartment chondrocalcinosis.
-*patient has been asking for frequent IV dilaudid. Given approaching DC --> stop Dilaudid
-I wanted to start Gabapentin but patient refuses stating 'I'm cautious what I take with my liver' I described starting a very low dose but he refuses
-I wanted to order lidocaine patch but patient refuses stating it doesn't work
-ultimately needs PT
-I will stop IV dilaudid and continue oral oxycodone PRN
Normocytic anemia--H&H stable
Chronic thrombocytopenia---Monitor
IDDM--Insulin sliding scale and Levemir
CAD--Continue aspirin
Severe protein calorie malnutrition--affects wound healing
DVT prophylaxis- heparin
CODE STATUS -- FULL CODE
Anticipated Discharge: 24 - 48 hours
Subjective/Interval History
-
Date of Service: August 25, 2023
eating and drinking well
urinating frequently
right hip pain extends down groin, wants IV dilaudid
Objective Data
-
Labs:
Laboratory Results
08/25/23
05:33
Sodium 137
Potassium 5.8 H
Chloride 108 H
Carbon Dioxide 24
BUN 71 H
Creatinine 2.0 H
Glucose 138 H
Calcium 8.3 L
Vital Signs:
Vital Signs
Temp Pulse Resp BP Pulse Ox
98.3 F 86 16 145/73 99
08/25/23 07:49 08/25/23 07:49 08/25/23 07:49 08/25/23 07:49 08/25/23 07:49
I&O
08/24/23 08/25/23 08/26/23
06:59 06:59 06:59
Intake Total 1680 / 1680 934 / 934
Output Total 1350 / 1350 1050 / 1050
Balance 330 / 330 -116 / -116
Review of Systems
-
History Source: Patient
All other systems: Reviewed and negative
Physical Exam
-
General: No Apparent Distress
HEENT: PERRLA
Respiratory: Clear to Auscultation; Negative Wheezes or Rhonchi
Cardiac: Regular Rhythm and S1/S2; Negative Murmur
GI: Soft, Nontender, Nondistended and Normal Bowel Sounds
Musculoskeletal: No Clubbing, No Cyanosis, No Edema and Other (can flex right hip and knee )
Neuro: Awake and AO x 3
Psych: Calm
Data Reviewed
-
Diagnostic Radiology: Report Reviewed by me
Labs: Labs Reviewed by me
[2023-08-25 11:39] LABS: Glucose - Point of Care 153 mg/dl (70-99)
[2023-08-25] MEDS: NOVOLOG FLEXPEN-HIGH RESISTANCE 2 UNITS SC ×2 (11:42→17:21)
[2023-08-25] MEDS: LOKELMA 10 GRAM PO ×2 (12:17→17:20)
--- NOTE | 2023-08-25 12:37 | PTCARENOTE ---
New order for tele due to K 5.8. Pt placed on tele #23 NSR.
--- NOTE | 2023-08-25 13:17 | W.CON.NEPH ---
Medical History
-
Chief Complaint: ROXY
History of Present Illness:
Mr. Crawford is a 63YOM with PMH of diabetes (on insulin) who underwent a liver/kidney txp in 2021 at [facility] for his hep C induced cirrhosis and subsequent renal failure. He is maintained on MMF and tac for IS. He also has a prior history of
coronary artery disease and has undergone previous stenting procedures and is maintained on aspirin therapy. He remains chronically on oxycodone for opioid dependent pain.
Of note, the patient had a recent slip and fall and was in the hospital in June 2023. he underwent ORIF on 06/18/2023. On presentation to the hospital his creatinine was at 1.0 but was escalated to 1.4. Nephrology was asked to see the patient for
acute kidney injury in the setting of his dual kidney and liver transplant. Thought to be pre-renal, discharged at Cr 1.2. Patient went to a rehab then was kicked out because he ran out of days. Currently homeless and lives out of his car. Noticed
that his hip pain was worse and blister was looking worse so he presented to the hospital. Now receiving treatment. Multiple days of vanc/zosyn.
Past Medical History
Kidney liver transplant 2021 at [facility]
Hepatitis C
Coronary artery disease with prior history of stenting
Insulin requiring diabetes
[facility]
Past Medical History: Other
Past Surgical History: Other
Social History
Tobacco: Former Smoker
Alcohol: None
Drug: None
Family History
no CKD
Allergies / Home Medications
Allergy/AdvReac Type Severity Reaction Status Date / Time
No Known Allergies Allergy Unverified 06/16/23 10:49
�Medication �Instructions �Recorded �Confirmed �Type
aspirin 81 mg tablet,delayed 81 mg PO DAILY Blood Clot 08/15/23 08/15/23 History
release Prevention/Tx
insulin lispro 100 unit/mL 0 sliding scale dose SC 08/15/23 08/15/23 History
subcutaneous pen DIRECTED Diabetes
mycophenolate sodium 180 mg 180 mg PO Q12H@08,1999 Kidney 08/15/23 08/15/23 History
tablet,delayed release transplant
tacrolimus 1 mg capsule, 3 mg PO Q12H@0800,1999 kidney 08/15/23 08/15/23 History
immediate-release transplant
Insulin Glargine Lantus As Directed mls/hr SC HS 08/21/23 Rx
[Lantus] 15 units
cephalexin 500 mg capsule 500 mg PO QID #0 caps 08/21/23 Rx
oxycodone 5 mg tablet 5 mg PO Q4HPRN PRN moderate pain 08/21/23 Rx
#7 tabs
sodium hypochlorite 0.125 % 1 applic topical DAILY #0 mL 08/21/23 Rx
solution (Dakin's Solution)
Review of Systems
-
History Source: Patient
All other systems: Negative unless noted
Abdomen/GI: Constipated
: Frequency
Physical Exam
Vital Signs
Vital Signs
Temp Pulse Resp BP Pulse Ox
98.3 F 86 16 145/73 99
08/25/23 07:49 08/25/23 07:49 08/25/23 07:49 08/25/23 07:49 08/25/23 07:49
Lab Results
WBC 5.3 10^3/uL (4.8-10.8) 08/21/23 07:00
RBC 3.14 10^6/uL (4.70-6.10) L 08/21/23 07:00
Hgb 9.0 g/dL (13.0-18.0) L 08/21/23 07:00
Hct 26.1 % (39.0-52.0) L 08/21/23 07:00
Plt Count 119 10^3/uL (130-400) L 08/21/23 07:00
Sodium 137 mmol/L (135-145) 08/25/23 05:33
Chloride 108 mmol/L (98-107) H 08/25/23 05:33
Carbon Dioxide 24 mmol/L (22-30) 08/25/23 05:33
BUN 71 mg/dl (9-20) H 08/25/23 05:33
Creatinine 2.0 mg/dL (0.7-1.3) H 08/25/23 05:33
eGFR 37.27 08/25/23 05:33
Glucose 138 mg/dl (70-99) H 08/25/23 05:33
Calcium 8.3 mg/dl (8.4-10.2) L 08/25/23 05:33
Albumin 2.7 g/dl (3.5-5.0) L 08/18/23 06:07
Physical Exam
General: AOx3, No Distress and Nontoxic
HEENT: PERRL, EOMI, Anicteric, Conjunctivae Clear, Ear/Nose Intact, Hearing Normal, Oropharynx Clear/Moist, Dentition Intact, Facial Symmetry, No JVD and No Thyromegaly
Respiratory: Clear and Normal Excursion
Cardiac: S1/S2, Regular Rate/Rhythm and No Edema
Breast: N/A
Abdomen: Soft, Nontender, Nondistended and Normal Bowel Sounds
Rectal: Deferred by Provider
Genito-urinary: No Costovertebral Tender and Clear Urine
Musculoskeletal: No Clubbing, No Cyanosis and No Edema
Skin: No Rash
Neuro: Nonfocal/Grossly Intact
Psych: Mood/afflect pleasant and Insight/judgement good
Data Reviewed
-
Radiology: Report Reviewed by me (ABIs normal)
Assessment/Plan
-
ROXY
R heel pressure ulcer
Left side Royator cuff inj
Coronary Artery Disease with stents
Left Kidney/Liver Transplant in 2021 for Cirrhosis secondary to Hepatitis C-at [facility] February 26, 2022
Diabetes Mellitus, Type II no history of diabetic neuropathy or retinopathy
Chronic back pain requiring chronic opioid dependence
DJD -C3-C4, C5-C6
Urine drug screen positive for fentanyl
Anemia
Thrombocytopenia
Plan:
Acute kidney injury
-Cr prior to admission in June at 1. Then elevated to 1.2-1.3, now elevated to 2
-etiology: unlikely post obstructive as bladder scans ok. some softer blood pressures noted --> ATN? vs tac toxicity vs vanc/zosyn?
-check tac level in the AM, ordered UA
-no other sxs. no hematuria (unlikely BK)
-maintain MAP >65
-monitor I/Os
-Bladder scan protocol implemented
Renal liver transplant:
- Maintain current dosage of mycophenolate and tacrolimus until levels return
Hyperkalemia
- most likely 2/2 to constipation vs. heparin?
- please initiate patient on low K diet
- initiated on bowel regimen
- lokelma order noted --> if no BM, will need to d/c
[2023-08-25] MEDS: ROXICODONE 7.5 MG PO ×2 (14:15→20:00)
[2023-08-25 15:00] VITALS: BP 137/68
[2023-08-25 16:44] LABS: Glucose - Point of Care 195 mg/dl (70-99)
[2023-08-25 16:57] LABS: Potassium 4.9 mmol/L (3.5-5.1)
[2023-08-25] MEDS: NOVOLOG FLEXPEN 8 UNITS SC (17:21)
[2023-08-25 19:00] VITALS: BP 120/63
[2023-08-25] MEDS: LANTUS 0.119999999999999996 UNITS SC (21:21)
[2023-08-25 21:22] LABS: Glucose - Point of Care 179 mg/dl (70-99)
[2023-08-25 23:00] VITALS: BP 130/74
[2023-08-26] MEDS: TYLENOL PO ×2 (00:10→23:22)
--- NOTE | 2023-08-26 01:27 | PTCARENOTE ---
Patient is upset about not getting IV dilaudid ordered earlier. He took off his tele monitor and is refusing to wear it. Discussed why he was ordered tele monitoring yesterday as his potassium level is high and he was educated him on how this could
potentially cause arrthymias. Patient still refusing to wear tele monitor. Talisha Peoples NP notified
[2023-08-26] MEDS: ROXICODONE 7.5 MG PO ×2 (01:40→17:33)
[2023-08-26 03:00] VITALS: BP 121/74
[2023-08-26] MEDS: LOKELMA 10 GRAM PO ×3 (05:21→17:35)
[2023-08-26] MEDS: TYLENOL 650 MG PO ×3 (05:21→17:34)
[2023-08-26 06:00] VITALS: BMI 24.4
[2023-08-26 07:20] LABS: % Basophils 0.8 % (0-2); % Immature Granulocytes 0.8 % (0-0.5); % Monocytes 8.2 % (1.7-9.3); % Neutrophils 67.2 % (42.2-75.2); Absolute Basophils 0.1 10^3/uL (0-0.2); Absolute Eosinophils 0.1 10^3/uL (0-0.7); Absolute Immature Granulocytes 0.1 10^3/uL (0-0.05); Absolute Lymphocytes 1.3 10^3/uL (1.2-3.4); Absolute Monocytes 0.5 10^3/uL (0.1-0.6); Hematocrit 27.4 % (39.0-52.0); Hemoglobin 9.4 g/dL (13.0-18.0); Mean Corp Hgb Conc. 34.3 g/dL (33.0-37.0); Mean Corpuscular Volume 84.6 fL (80.0-94.0); Mean Platelet Volume 10.7 fL (7.4-10.4); Nucleated Red Blood Cells % 0 % (-); Platelet Count 121 10^3/uL (130-400); Red Blood Cell Count 3.24 10^6/uL (4.70-6.10); Red Cell Dist. Width 14.7 % (11.5-14.5)
[2023-08-26 07:49] VITALS: BP 132/72
[2023-08-26 07:54] LABS: Blood Urea Nitrogen 68 mg/dl (9-20); Calcium 8.2 mg/dl (8.4-10.2); Carbon Dioxide 24 mmol/L (22-30); Chloride 107 mmol/L (98-107); Estimated Creatinine Clearance 44 ml/min; Glucose 161 mg/dl (70-99); Potassium 5.1 mmol/L (3.5-5.1); Sodium 136 mmol/L (135-145)
[2023-08-26 08:04] LABS: Glucose - Point of Care 195 mg/dl (70-99)
[2023-08-26] MEDS: MIRALAX PO (08:50)
[2023-08-26] MEDS: COLACE PO ×2 (08:50→20:49)
[2023-08-26] MEDS: HEPARIN SC ×2 (08:58→20:49)
[2023-08-26] MEDS: ASPIR LOW (ENTERIC COATED) 81 MG PO (09:02)
[2023-08-26] MEDS: PROGRAF 3 MG PO ×2 (09:04→20:48)
[2023-08-26] MEDS: MYFORTIC DELAYED REL. 180 MG PO ×2 (09:04→20:48)
[2023-08-26] MEDS: NOVOLOG FLEXPEN-HIGH RESISTANCE 2 UNITS SC ×2 (09:06→13:13)
[2023-08-26] MEDS: NOVOLOG FLEXPEN 8 UNITS SC ×3 (09:06→17:25)
[2023-08-26] MEDS: DAKIN'S SOLUTION 0.125% 1/4 STRENGTH 473 ML TOPICAL (09:08)
--- NOTE | 2023-08-26 09:17 | W.PN.HOSP.TC ---
Today's Communication/Plan
-
rodrigues
F/U UA
appreciate renal
Assessment / Plan
Assessment / Plan
pt is a 63 year old male
Right heel pressure ulcer (POA)
Diabetic Foot wound-- apprec podiatry--no need for surgical debridement--arterial US normal
-blood cultures negative, Wound cultures shows E. coli, Staph aureus, Strep pyogenes
-s/p IV Zosyn and vancomycin now changed to cephalexin through 08/25/23
--now agreeable to SNF
Heart murmur--known per pt
Kidney/liver transplant-2021--History of hepatitis C and liver cirrhosis--Continue tacrolimus and mycophenolate
-Tacrolimus level OK
-patient follows with [facility] and states he has an upcoming appointment within next month
ROXY- creatinine baseline was ~ 1.2-1.3 earlier this month;
Hyperkalemia
Renal US with evidence of acute retention
-may also be AE vanc/Zosyn (now stopped)
-Tacrolimus level OK, repeated this AM
-appreciate renal consult
-place rodrigues
-etiology of retention may be 2/2 opiate use (patient very demanding of IV dilaudid and on oxycodone) - will also obtain UA to rule out infection
Lower Back pain
Right Hip Pain
Sciatica - description of pain traveling down lower back to groin/leg
-appreciate ortho consult
-X-rays of the right hip demonstrate a healed right hip fracture. Hardware is intact with no signs of loosening or failure.
-X-rays of the right knee demonstrate mild degenerative changes with medial and lateral compartment chondrocalcinosis.
-*patient has been asking for frequent IV dilaudid. Given approaching DC --> stop Dilaudid
-I wanted to start Gabapentin but patient refuses stating 'I'm cautious what I take with my liver' I described starting a very low dose but he refuses
-I wanted to order lidocaine patch but patient refuses stating it doesn't work
-ultimately needs PT
-oxy PRN dosing increased on 08/24
-will give IV Dilaudid qhs
-patient states he takes medical marijuana outside the hospital
Normocytic anemia--H&H stable
Chronic thrombocytopenia---Monitor
IDDM--Insulin sliding scale and Levemir
CAD--Continue aspirin
Severe protein calorie malnutrition--affects wound healing
DVT prophylaxis- heparin
CODE STATUS -- FULL CODE
Anticipated Discharge: 24 - 48 hours
Subjective/Interval History
-
Date of Service: August 26, 2023
continues to complain of right hip pain
Objective Data
-
Labs:
Laboratory Results
08/26/23
06:46
WBC 6.0
Hgb 9.4 L
Hct 27.4 L
Plt Count 121 L
Sodium 136
Potassium 5.1
Chloride 107
Carbon Dioxide 24
BUN 68 H
Creatinine 1.8 H
Glucose 161 H
Calcium 8.2 L
Vital Signs:
Vital Signs
Temp Pulse Resp BP Pulse Ox
98.5 F 88 16 132/72 99
08/26/23 07:49 08/26/23 07:49 08/26/23 07:49 08/26/23 07:49 08/26/23 07:49
I&O
08/25/23 08/26/23 08/27/23
06:59 06:59 06:59
Intake Total 934 / 934 1800 / 1800
Output Total 1050 / 1050 900 / 900
Balance -116 / -116 900 / 900
Review of Systems
-
History Source: Patient
All other systems: Reviewed and negative
Physical Exam
-
General: No Apparent Distress
HEENT: PERRLA
Respiratory: Clear to Auscultation; Negative Wheezes or Rhonchi
Cardiac: Regular Rhythm and S1/S2; Negative Murmur
GI: Soft, Nontender, Nondistended and Normal Bowel Sounds
Musculoskeletal: No Clubbing, No Cyanosis, No Edema and Other (can flex right hip and knee )
Neuro: Awake and AO x 3
Psych: Calm
Data Reviewed
-
Diagnostic Radiology: Report Reviewed by me
Labs: Labs Reviewed by me
[2023-08-26] MEDS: ROXICODONE 5 MG PO ×2 (09:34→13:43)
--- NOTE | 2023-08-26 10:39 | W.PN.NEPH.PH ---
Today's Communication / Plan
-
- discussed with patient about Mejia, patient amenable for evening placement
Assessment/Plan
-
ROXY
R heel pressure ulcer
Left side Royator cuff inj
Coronary Artery Disease with stents
Left Kidney/Liver Transplant in 2021 for Cirrhosis secondary to Hepatitis C-at [facility] February 26, 2022
Diabetes Mellitus, Type II no history of diabetic neuropathy or retinopathy
Chronic back pain requiring chronic opioid dependence
DJD -C3-C4, C5-C6
Urine drug screen positive for fentanyl
Anemia
Thrombocytopenia
Plan:
Acute kidney injury
-Cr prior to admission in June at 1. Then elevated to 1.2-1.3, peak 2, now down to 1.8
-etiology: some softer blood pressures noted --> ATN? vs tac toxicity vs vanc/zosyn? hydro noted on renal ultrasound as well as s/s of chronic outlet obstruction
-check tac level in the AM, urinalysis pending
-no other sxs. no hematuria
-maintain MAP >65
-monitor I/Os
Renal liver transplant:
- Maintain current dosage of mycophenolate and tacrolimus until levels return
Hyperkalemia
- most likely 2/2 to constipation vs. heparin?
- please initiate patient on low K diet
- initiated on bowel regimen
- lokelma order noted --> if no BM, will need to d/c
-
-
Date of Service: August 26, 2023
CC / HPI / ROS
-
Chief Complaint:
ROXY
History of Present Illness:
renal transplant patient
Cr up to 2, baseline 1
Review of Systems:
-back and leg pain
-wants pain meds
Labs
-
Labs:
WBC 6.0 10^3/uL (4.8-10.8) 08/26/23 06:46
RBC 3.24 10^6/uL (4.70-6.10) L 08/26/23 06:46
Hgb 9.4 g/dL (13.0-18.0) L 08/26/23 06:46
Hct 27.4 % (39.0-52.0) L 08/26/23 06:46
Plt Count 121 10^3/uL (130-400) L 08/26/23 06:46
Sodium 136 mmol/L (135-145) 08/26/23 06:46
Potassium 5.1 mmol/L (3.5-5.1) 08/26/23 06:46
Chloride 107 mmol/L (98-107) 08/26/23 06:46
Carbon Dioxide 24 mmol/L (22-30) 08/26/23 06:46
BUN 68 mg/dl (9-20) H 08/26/23 06:46
Creatinine 1.8 mg/dL (0.7-1.3) H 08/26/23 06:46
eGFR 42.30 08/26/23 06:46
Glucose 161 mg/dl (70-99) H 08/26/23 06:46
Calcium 8.2 mg/dl (8.4-10.2) L 08/26/23 06:46
Albumin 2.7 g/dl (3.5-5.0) L 08/18/23 06:07
Physical Exam
-
Vital Signs:
Vital Signs
Temp Pulse Resp BP Pulse Ox
98.5 F 88 16 132/72 99
08/26/23 07:49 08/26/23 07:49 08/26/23 07:49 08/26/23 07:49 08/26/23 07:49
Cardiovascular:: Regular rate and rhythm
Respiratory:: Bilateral: CTA
Lung Excursion:: Normal
Abdomen:: Nontender and Soft
Bowel Sounds:: Normal
Extremity Edema:: None: Bilateral:
Mejia Catheter: No
[2023-08-26 12:22] LABS: Glucose - Point of Care 173 mg/dl (70-99)
[2023-08-26 14:25] LABS: Urine Albumin 2+ (Neg - Trace); Urine Bilirubin Negative (Negative); Urine Character Clear (Clear); Urine Color Yellow; Urine Glucose Negative (Negative); Urine Ketone Negative (Negative); Urine Leukocyte Negative (Negative); Urine Nitrite Negative (Negative); Urine Occult Blood 4+ (Negative); Urine Specific Gravity 1.015 (<1.030); Urine Urobilinogen Negative (Neg - 1+)
[2023-08-26 14:38] LABS: Urine Red Blood Cell 30-40 /HPF (0-2)
[2023-08-26 14:39] LABS: Urine Bacteria Few (Negative); Urine Yeast Few (Negative)
[2023-08-26 15:54] VITALS: BP 119/63
[2023-08-26] MEDS: NOVOLOG FLEXPEN-HIGH RESISTANCE SC (17:19)
[2023-08-26 17:20] LABS: Glucose - Point of Care 138 mg/dl (70-99)
[2023-08-26] MEDS: NOVOLOG FLEXPEN-HIGH RESISTANCE 1 UNITS SC (17:24)
[2023-08-26] MEDS: DILAUDID 0.5 MG IV (20:48)
[2023-08-26 21:52] LABS: Glucose - Point of Care 211 mg/dl (70-99)
[2023-08-26] MEDS: LANTUS 0.119999999999999996 UNITS SC (22:08)
[2023-08-26 23:15] VITALS: BP 119/65
[2023-08-27] MEDS: ROXICODONE 7.5 MG PO ×3 (00:51→18:23)
[2023-08-27 06:00] VITALS: BMI 24.3
[2023-08-27] MEDS: LOKELMA 10 GRAM PO ×2 (06:05→14:02)
[2023-08-27] MEDS: TYLENOL 650 MG PO ×2 (06:05→18:11)
[2023-08-27 07:00] VITALS: BP 119/74
[2023-08-27 07:50] LABS: Glucose - Point of Care 137 mg/dl (70-99)
[2023-08-27 08:12] LABS: Blood Urea Nitrogen 68 mg/dl (9-20); Calcium 8.4 mg/dl (8.4-10.2); Carbon Dioxide 24 mmol/L (22-30); Chloride 108 mmol/L (98-107); Estimated Creatinine Clearance 47 ml/min; Glucose 134 mg/dl (70-99); Potassium 4.7 mmol/L (3.5-5.1); Sodium 137 mmol/L (135-145)
[2023-08-27] MEDS: HEPARIN SC ×2 (08:31→20:27)
[2023-08-27] MEDS: COLACE PO ×2 (08:32→20:27)
[2023-08-27] MEDS: MIRALAX PO (08:32)
[2023-08-27] MEDS: MYFORTIC DELAYED REL. 180 MG PO ×2 (08:33→20:27)
[2023-08-27] MEDS: DAKIN'S SOLUTION 0.125% 1/4 STRENGTH 473 ML TOPICAL (08:33)
[2023-08-27] MEDS: PROGRAF 3 MG PO ×2 (08:33→20:27)
[2023-08-27] MEDS: ASPIR LOW (ENTERIC COATED) 81 MG PO (08:34)
[2023-08-27] MEDS: NOVOLOG FLEXPEN-HIGH RESISTANCE 1 UNITS SC (08:37)
[2023-08-27] MEDS: NOVOLOG FLEXPEN 8 UNITS SC ×3 (08:37→18:11)
--- NOTE | 2023-08-27 11:12 | W.PN.HOSP.TC ---
Today's Communication/Plan
-
continue rodrigues
monitor BMP
eventual SNF likely with rodrigues
F/U further renal recs
Assessment / Plan
Assessment / Plan
pt is a 63 year old male
Right heel pressure ulcer (POA)
Diabetic Foot wound-- apprec podiatry--no need for surgical debridement--arterial US normal
-blood cultures negative, Wound cultures shows E. coli, Staph aureus, Strep pyogenes
-s/p IV Zosyn and vancomycin now changed to cephalexin through 08/25/23 --> completed course
--now agreeable to SNF
Heart murmur--known per pt
Kidney/liver transplant-2021--History of hepatitis C and liver cirrhosis--Continue tacrolimus and mycophenolate
-Tacrolimus level OK
-patient follows with [facility] [place] and states he has an upcoming appointment within next month
ROXY- creatinine baseline was ~ 1.2-1.3 earlier this month;
Hyperkalemia
Renal US with evidence of acute retention
-may also be AE vanc/Zosyn (now stopped)
-Tacrolimus level OK, repeated 08/25
-appreciate renal consult
-place rodrigues - on 08/25
-etiology of retention may be 2/2 opiate use (patient very demanding of IV dilaudid and on oxycodone). Patient wanted rodrigues out on 08/25 but I told him I would have to wean narcotics. This morning he has not complained about rodrigues.
Lower Back pain
Right Hip Pain
Sciatica - description of pain traveling down lower back to groin/leg
-appreciate ortho consult
-X-rays of the right hip demonstrate a healed right hip fracture. Hardware is intact with no signs of loosening or failure.
-X-rays of the right knee demonstrate mild degenerative changes with medial and lateral compartment chondrocalcinosis.
-*patient has been asking for frequent IV dilaudid. Given approaching DC --> stop Dilaudid
-I wanted to start Gabapentin but patient refuses stating 'I'm cautious what I take with my liver' I described starting a very low dose but he refuses
-I wanted to order lidocaine patch but patient refuses stating it doesn't work
-ultimately needs PT
-oxy PRN dosing increased on 08/24
-will give IV Dilaudid qhs
-patient states he takes medical marijuana outside the hospital
Normocytic anemia--H&H stable
Chronic thrombocytopenia---Monitor
IDDM--Insulin sliding scale and Levemir
CAD--Continue aspirin
Severe protein calorie malnutrition--affects wound healing
DVT prophylaxis- heparin
CODE STATUS -- FULL CODE
Anticipated Discharge: 24 - 48 hours
Subjective/Interval History
-
Date of Service: August 27, 2023
patient just got oxycodone
no active complaints
OK with rodrigues in this morning
Objective Data
-
Labs:
Laboratory Results
08/27/23
06:30
Sodium 137
Potassium 4.7
Chloride 108 H
Carbon Dioxide 24
BUN 68 H
Creatinine 1.7 H
Glucose 134 H
Calcium 8.4
Vital Signs:
Vital Signs
Temp Pulse Resp BP Pulse Ox
98.8 F 90 18 119/74 99
08/27/23 07:00 08/27/23 07:00 08/27/23 07:00 08/27/23 07:00 08/27/23 07:00
I&O
08/26/23 08/27/23 08/28/23
06:59 06:59 06:59
Intake Total 1800 / 1800 1080 / 1080
Output Total 900 / 900 2500 / 2500
Balance 900 / 900 -1420 / -1420
Review of Systems
-
History Source: Patient
All other systems: Reviewed and negative
Physical Exam
-
General: No Apparent Distress
HEENT: PERRLA
Respiratory: Clear to Auscultation; Negative Wheezes or Rhonchi
Cardiac: Regular Rhythm and S1/S2; Negative Murmur
GI: Soft, Nontender, Nondistended and Normal Bowel Sounds
Musculoskeletal: No Clubbing, No Cyanosis, No Edema and Other (can flex right hip and knee )
Neuro: Awake and AO x 3
Psych: Calm
Data Reviewed
-
Diagnostic Radiology: Report Reviewed by me
Labs: Labs Reviewed by me
--- NOTE | 2023-08-27 11:39 | W.PN.NEPH.PH ---
Today's Communication / Plan
-
- Cr improving
- continue Mejia as long as patient will allow
Assessment/Plan
-
ROXY
R heel pressure ulcer
Left side Royator cuff inj
Coronary Artery Disease with stents
Left Kidney/Liver Transplant in 2021 for Cirrhosis secondary to Hepatitis C-at [facility] February 26, 2022
Diabetes Mellitus, Type II no history of diabetic neuropathy or retinopathy
Chronic back pain requiring chronic opioid dependence
DJD -C3-C4, C5-C6
Urine drug screen positive for fentanyl
Anemia
Thrombocytopenia
Plan:
Acute kidney injury
-Cr prior to admission in June at 1. Then elevated to 1.2-1.3, peak 2, now down to 1.7
-etiology: some softer blood pressures noted --> ATN? vs tac toxicity vs vanc/zosyn? hydro noted on renal ultrasound as well as s/s of chronic outlet obstruction
-Cr improving after Mejia insertion
-tac at 7.7 acceptable, UA with some blood (Mejia in)
-no other sxs
-maintain MAP >65
-monitor I/Os
Renal liver transplant:
- Maintain current dosage of mycophenolate and tacrolimus until levels return
Hyperkalemia
- most likely 2/2 to constipation vs. heparin?
- please initiate patient on low K diet
- initiated on bowel regimen
- now normalized
-
-
Date of Service: August 27, 2023
CC / HPI / ROS
-
Chief Complaint:
ROXY
History of Present Illness:
renal transplant patient
Cr up to 1.7, baseline 1
Review of Systems:
-back and leg pain
-wants pain meds
Labs
-
Labs:
WBC 6.0 10^3/uL (4.8-10.8) 08/26/23 06:46
RBC 3.24 10^6/uL (4.70-6.10) L 08/26/23 06:46
Hgb 9.4 g/dL (13.0-18.0) L 08/26/23 06:46
Hct 27.4 % (39.0-52.0) L 08/26/23 06:46
Plt Count 121 10^3/uL (130-400) L 08/26/23 06:46
Sodium 137 mmol/L (135-145) 08/27/23 06:30
Potassium 4.7 mmol/L (3.5-5.1) 08/27/23 06:30
Chloride 108 mmol/L (98-107) H 08/27/23 06:30
Carbon Dioxide 24 mmol/L (22-30) 08/27/23 06:30
BUN 68 mg/dl (9-20) H 08/27/23 06:30
Creatinine 1.7 mg/dL (0.7-1.3) H 08/27/23 06:30
eGFR 45.30 08/27/23 06:30
Glucose 134 mg/dl (70-99) H 08/27/23 06:30
Calcium 8.4 mg/dl (8.4-10.2) 08/27/23 06:30
Albumin 2.7 g/dl (3.5-5.0) L 08/18/23 06:07
Physical Exam
-
Vital Signs:
Vital Signs
Temp Pulse Resp BP Pulse Ox
98.8 F 90 18 119/74 99
08/27/23 07:00 08/27/23 07:00 08/27/23 07:00 08/27/23 07:00 08/27/23 07:00
Cardiovascular:: Regular rate and rhythm
Respiratory:: Bilateral: Coarse
Lung Excursion:: Normal
Abdomen:: Nontender and Soft
Bowel Sounds:: Normal
Extremity Edema:: None: Bilateral:
Mejia Catheter: Yes
[2023-08-27 12:33] LABS: Glucose - Point of Care 176 mg/dl (70-99)
[2023-08-27] MEDS: TYLENOL PO (13:56)
[2023-08-27] MEDS: NOVOLOG FLEXPEN-HIGH RESISTANCE 2 UNITS SC ×2 (14:01→18:12)
[2023-08-27 15:00] VITALS: BP 128/70
[2023-08-27 16:39] LABS: Glucose - Point of Care 182 mg/dl (70-99)
[2023-08-27] MEDS: DILAUDID 0.5 MG IV (20:48)
[2023-08-27 21:32] LABS: Glucose - Point of Care 176 mg/dl (70-99)
[2023-08-27] MEDS: LANTUS 0.140000000000000013 UNITS SC (21:55)
[2023-08-27 23:00] VITALS: BP 114/65
[2023-08-28] MEDS: TYLENOL PO (00:07)
[2023-08-28] MEDS: ROXICODONE 7.5 MG PO ×3 (05:21→23:56)
[2023-08-28] MEDS: TYLENOL 650 MG PO ×4 (05:22→23:57)
[2023-08-28 06:00] VITALS: BMI 24.2
[2023-08-28 07:00] VITALS: BP 132/75
[2023-08-28 07:23] LABS: Blood Urea Nitrogen 64 mg/dl (9-20); Calcium 8.1 mg/dl (8.4-10.2); Carbon Dioxide 28 mmol/L (22-30); Chloride 108 mmol/L (98-107); Estimated Creatinine Clearance 53 ml/min; Glucose 112 mg/dl (70-99); Potassium 4.8 mmol/L (3.5-5.1); Sodium 138 mmol/L (135-145); eGFR 52.64
[2023-08-28 08:02] LABS: Glucose - Point of Care 128 mg/dl (70-99)
[2023-08-28] MEDS: NOVOLOG FLEXPEN-HIGH RESISTANCE SC (08:11)
[2023-08-28] MEDS: HEPARIN SC ×2 (09:49→20:32)
[2023-08-28] MEDS: MIRALAX PO (09:49)
[2023-08-28] MEDS: COLACE PO ×2 (09:49→20:32)
[2023-08-28] MEDS: ASPIR LOW (ENTERIC COATED) 81 MG PO (09:50)
[2023-08-28] MEDS: MYFORTIC DELAYED REL. 180 MG PO ×2 (09:50→20:32)
[2023-08-28] MEDS: PROGRAF 3 MG PO ×2 (09:51→20:32)
[2023-08-28] MEDS: ROXICODONE 5 MG PO (09:54)
[2023-08-28] MEDS: NOVOLOG FLEXPEN 8 UNITS SC ×3 (09:54→18:13)
--- NOTE | 2023-08-28 12:25 | CM ---
Reviewed chart, patient refusing PT. Will need to discuss with patient whether he is still agreeable to completing financial forms for [facility].
Plan: Case management will continue to follow and assist with discharge planning. SNF if patient still agreeable to transfer.
[2023-08-28 12:29] LABS: Glucose - Point of Care 205 mg/dl (70-99)
[2023-08-28] MEDS: NOVOLOG FLEXPEN-HIGH RESISTANCE 4 UNITS SC (13:16)
--- NOTE | 2023-08-28 13:28 | W.PN.NEPH.PH ---
Today's Communication / Plan
-
recommend eval
Assessment/Plan
-
ROXY
R heel pressure ulcer
Left side Royator cuff inj
Coronary Artery Disease with stents
Left Kidney/Liver Transplant in 2021 for Cirrhosis secondary to Hepatitis C-at [facility] February 26, 2022, b/l 1.3
Diabetes Mellitus, Type II no history of diabetic neuropathy or retinopathy
Chronic back pain requiring chronic opioid dependence
DJD -C3-C4, C5-C6
Urine drug screen positive for fentanyl
Anemia
Thrombocytopenia
Plan:
follow BMP
maintain rodrigues for now
he refuses flomax, says he had it before from PCP and it was supposed to shrink prostate and make him pee better but it did not so he stopped it
also has never seen urology, but says he had an episode of retention needing rodrigues a year ago
he is insistent he can just have a TURP performed this hospitalization and be done with retention
-
-
Date of Service: August 28, 2023
CC / HPI / ROS
-
Chief Complaint:
ROXY
History of Present Illness:
ROXY/Cr down to 1.5
BP stable
rodrigues remains in place for retention/BPH
on immunosuppression for renal transplant
Review of Systems:
back and leg pain persists
no CP/SOB
Labs
-
Labs:
WBC 6.0 10^3/uL (4.8-10.8) 08/26/23 06:46
RBC 3.24 10^6/uL (4.70-6.10) L 08/26/23 06:46
Hgb 9.4 g/dL (13.0-18.0) L 08/26/23 06:46
Hct 27.4 % (39.0-52.0) L 08/26/23 06:46
Plt Count 121 10^3/uL (130-400) L 08/26/23 06:46
Sodium 138 mmol/L (135-145) 08/28/23 06:36
Potassium 4.8 mmol/L (3.5-5.1) 08/28/23 06:36
Chloride 108 mmol/L (98-107) H 08/28/23 06:36
Carbon Dioxide 28 mmol/L (22-30) 08/28/23 06:36
BUN 64 mg/dl (9-20) H 08/28/23 06:36
Creatinine 1.5 mg/dL (0.7-1.3) H 08/28/23 06:36
eGFR 52.64 08/28/23 06:36
Glucose 112 mg/dl (70-99) H 08/28/23 06:36
Calcium 8.1 mg/dl (8.4-10.2) L 08/28/23 06:36
Albumin 2.7 g/dl (3.5-5.0) L 08/18/23 06:07
Physical Exam
-
Vital Signs:
Vital Signs
Temp Pulse Resp BP Pulse Ox
99.1 F 86 18 132/75 99
08/28/23 07:00 08/28/23 07:00 08/28/23 07:00 08/28/23 07:00 08/28/23 07:00
Cardiovascular:: Regular rate and rhythm
Respiratory:: Bilateral: Coarse
Lung Excursion:: Normal
Abdomen:: Nontender and Soft
Bowel Sounds:: Normal
Extremity Edema:: None: Bilateral:
[2023-08-28 15:00] VITALS: BP 126/68
[2023-08-28 16:42] LABS: Glucose - Point of Care 185 mg/dl (70-99)
--- NOTE | 2023-08-28 17:59 | W.PN.HOSP.TC ---
Addendum entered and electronically signed by Lucas Collado MD 08/28/23 23:03:
Attending Addendum-
I saw and evaluated the patient. I reviewed the resident�s note and agree with findings and plan as documented in the resident�s note. Appears comfortable. 'I got pain all over.' wants TURP to be done while in house. refusing flomax. Full 12 point
ROS reviewed and negative except as documented Exam: Vitals reviewed in chart GEN-NAD heart SM @ RUSB RRR lungs clear abd soft LE no edema - rodrigues in place Plan:
#Right heel pressure ulcer (POA)
-Diabetic Foot wound-- apprec podiatry--no need for surgical debridement--arterial US normal
-blood cultures negative, Wound cultures shows E. coli, Staph aureus, Strep pyogenes
-s/p IV Zosyn and vancomycin switched to keflex-completed course
-cont wound care
# Kidney/liver transplant-2021--History of hepatitis C and liver cirrhosis--Continue tacrolimus and mycophenolate
-Tacrolimus level WNL
- patient follows with [facility]
- nephro on board- appreciate input
# ROXY- creatinine baseline was ~ 1.2-1.3 earlier this month
- resolved
# Hyperkalemia
- resolved
# Acute urinary retention due to BPH
- uro c/s
- rodrigues placed - on 08/25
- voiding trial in AM
- refusing flomax for some reason will restart
- wants turp robin
# Chronic Back Pain with Radiculopathy Chronic narcotic use and abuse
- fentanyl in tox screen
-has been asking for frequent IV dilaudid. Given approaching DC --> stop Dilaudid
-ultimately needs PT
-oxy PRN dosing increased on 08/24
-DC IV Dilaudid qhs
-patient states he takes medical marijuana outside the hospital
# H/O Right Hip fx
-appreciate ortho consult
-X-rays of the right hip demonstrate a healed right hip fracture.
- PT OT
Normocytic anemia--H&H stable
Chronic thrombocytopenia---Monitor
IDDM--Insulin sliding scale and Levemir
CAD--Continue aspirin
Severe protein calorie malnutrition--affects wound healing
DVT prophylaxis- heparin
CODE STATUS -- FULL CODE
Dispo DC 24-48hrs likely home if agreeable to [facility] t point
Time spent coordinating care, review of plan of care with resident, review of records, med rec, consults, notes, labs, rads, d/w nursing and nephro � 58 mins
Original Note:
Today's Communication/Plan
-
Monitor kidney function
Monitor I&Os
Daily weights
Glucose monitoring
pain management
Assessment / Plan
Assessment / Plan
pt is a 63 year old male
Right heel pressure ulcer (POA)
Diabetic Foot wound-- apprec podiatry--no need for surgical debridement--arterial US normal
-blood cultures negative, Wound cultures shows E. coli, Staph aureus, Strep pyogenes
- Wound care on board
- Completed Abx course (broad spectrum -> Cephalexin x 7 days)
--now agreeable to [facility] - [facility]
Heart murmur
Chronic, known to pt
Hx of Kidney/liver transplant-
Transplant in 2021--History of hepatitis C and liver cirrhosis--
-Continue tacrolimus and mycophenolate
-Tacrolimus level is therapeutic
-patient follows with [facility] and states he has an upcoming appointment within next month
ROXY- creatinine baseline was ~ 1.2-1.3 earlier this month;
Renal US of donor kidney - hydronephrosis + hydroureter
- Hx of BPH
-nephro on board
-Urology consult
-rodrigues in since 08/25
-etiology of retention may be 2/2 opiate use (patient very demanding of IV dilaudid and on oxycodone).
Lower Back pain
Right Hip Pain
Sciatica - description of pain traveling down lower back to groin/leg
-appreciate ortho consult
-X-rays of the right hip demonstrate a healed right hip fracture. Hardware is intact with no signs of loosening or failure.
-X-rays of the right knee demonstrate mild degenerative changes with medial and lateral compartment chondrocalcinosis.
- Dilaudid was stopped due to pending discharge. Pt asks for BID Dilaudid
- PT evaluation - Pt able to mobilize with supervision using rolling walker
- Oxycodone for pain control. PDMP shows slow taper of home Oxycodone. Most recent home dose 5mg, 5 days, QTY 15
- patient states he takes medical marijuana outside the hospital
Normocytic anemia--H&H stable
Chronic thrombocytopenia---Monitor
IDDM--High resistance Insulin sliding scale, plus Glargine 14 units SC HS, Novolog 8 units SC AC
CAD--Continue aspirin
Severe protein calorie malnutrition--affects wound healing
DVT prophylaxis- heparin
CODE STATUS -- FULL CODE
Anticipated Discharge: 24 - 48 hours
Subjective/Interval History
-
Date of Service: August 28, 2023
Pt complains of pain in right hip radiating down to heel.
LLQ pain
Rodrigues catheter in for urinary retention, declined Flomax. Pt has hx of BPH. He would like to discuss possibility of TURP procedure on this admission.
Objective Data
-
Labs:
Laboratory Results
08/28/23
06:36
Sodium 138
Potassium 4.8
Chloride 108 H
Carbon Dioxide 28
BUN 64 H
Creatinine 1.5 H
Glucose 112 H
Calcium 8.1 L
Vital Signs:
Vital Signs
Temp Pulse Resp BP Pulse Ox
98.4 F 86 18 126/68 100
08/28/23 15:00 08/28/23 15:00 08/28/23 15:00 08/28/23 15:00 08/28/23 15:00
I&O
08/27/23 08/28/23 08/29/23
06:59 06:59 06:59
Intake Total 1080 / 1080 1500 / 1500
Output Total 2500 / 2500 1700 / 1700
Balance -1420 / -1420 -200 / -200
Review of Systems
-
History Source: Patient
Respiratory: Reports No Symptoms
Cardiac: Reports No Symptoms
Abdomen/GI: Reports Abdominal Pain (LLQ)
Musculoskeletal: Reports Joint Pain (R hip pain)
Skin: Denies Rash
Neuro: Denies Dizzy or Headache
Physical Exam
-
General: Comfortable; Negative Respiratory Distress
HEENT: Normocephalic, Atraumatic, Moist Mucous Membranes and Anicteric
Respiratory: Clear to Auscultation and Non Labored Respirations; Negative Wheezes, Rales, Rhonchi, Crackles or Accessory Resp Muscle Use
Cardiac: Regular Rhythm, S1/S2 and Murmur (systolic murmur)
GI: Soft, Nondistended, Normal Bowel Sounds and Tender (LLQ tenderness); Negative Organomegaly
Genito-urinary: Clear Urine, Bloody Urine (blood tinged urine), Rodrigues and Other (LLQ tenderness)
Musculoskeletal: No Clubbing, No Cyanosis and No Edema
Skin: Warm, Dry and Ulcers (Right heel ); Negative Rash or Jaundice
Neuro: Awake, Alert and Oriented
Psych: Calm
[2023-08-28] MEDS: DAKIN'S SOLUTION 0.125% 1/4 STRENGTH 10 ML TOPICAL (18:02)
[2023-08-28] MEDS: NOVOLOG FLEXPEN-HIGH RESISTANCE 2 UNITS SC (18:13)
--- NOTE | 2023-08-28 19:39 | CONS.URO ---
Consultation
-
Performing Provider: Seth
Reason for Consultation: urinary retention
Medical History
History of Present Illness
63M with prior hx of renal and kidney transplant. On immunosuppressive medication. No recent infection. He is under care of the transplant team at [facility].
Has BPH in the past treated with tamsulosin which he self stopped 6 months ago
He has a few years of worsening LUTS with slow stream, frequency, urgency
Patient had a right hip fracture for which she had ORIF in June of this year. After that he was discharged to rehab
He is homeless and lives out of his car.
Since discharge out of rehab he started noticed right hip pain which got severe where he could not weight-bear. No trauma. While he was in the second rehab he started to develop a right heel wound with a blister. It is very painful. Apparently no
drainage at home. He was discharged from this rehab 2 days ago
He was admitted for treatment of a right heel wound with suspected infection
Received abx and pain medications
During inpatient stay he developed worsening renal function
Renal US showed hydronephrosis of transplant kidney and bladder volume 380cc (unable to void for post void volume)
Rodrigues catheter was placed with 300cc output
He did not feel he was acutely retaining
Past Medical History
Past Medical History: Other (Reports CAD, IDDM and Other (Kidney/renal transplant) Hepatitis C, BPH)
Past Surgical History: Other (Reports Cardiac (Stents), Orthopedic (Right hip ORIF) and Other (IVC))
Social History
Tobacco: Former Smoker
Alcohol: None
Family History
Family History: Reviewed & Not Pertinent
Allergies/Home Medications
Allergies
Allergy/AdvReac Type Severity Reaction Status Date / Time
No Known Allergies Allergy Unverified 06/16/23 10:49
Home Medications
�Medication �Instructions �Recorded �Confirmed �Type
aspirin 81 mg tablet,delayed 81 mg PO DAILY Blood Clot 08/15/23 08/15/23 History
release Prevention/Tx
insulin lispro 100 unit/mL 0 sliding scale dose SC 08/15/23 08/15/23 History
subcutaneous pen DIRECTED Diabetes
mycophenolate sodium 180 mg 180 mg PO Q12H@0800,1999 Kidney 08/15/23 08/15/23 History
tablet,delayed release transplant
tacrolimus 1 mg capsule, 3 mg PO Q12H@0800,1999 kidney 08/15/23 08/15/23 History
immediate-release transplant
Insulin Glargine Lantus As Directed mls/hr SC HS 08/21/23 Rx
[Lantus] 15 units
cephalexin 500 mg capsule 500 mg PO QID #0 caps 08/21/23 Rx
oxycodone 5 mg tablet 5 mg PO Q4HPRN PRN moderate pain 08/21/23 Rx
#7 tabs
sodium hypochlorite 0.125 % 1 applic topical DAILY #0 mL 08/21/23 Rx
solution (Dakin's Solution)
Physical Exam
Vital Signs
Vital Signs
Temp Pulse Resp BP Pulse Ox
98.4 F 86 18 126/68 100
08/28/23 15:00 08/28/23 15:00 08/28/23 15:00 08/28/23 15:00 08/28/23 15:00
Lab / Testing Results
Laboratory Results
08/26/23 06:46
08/28/23 06:36
Physical Exam
General: Well Developed, Well Nourished and No Apparent Distress
Respiratory: Clear and Non Labored Respirations
GI: Soft and Non Tender
Neuro: AO x 3
Psych: Calm and Intact Judgement
Assessment / Plan
-
63M with ROXY and apparent moderate volume urinary retention with hydronephrosis of transplant kidney during admission for diabetic foot wound
- Source of ROXY unclear - bladder volume on the low side to cause reflux nephropathy, however this is more likely with a transplant kidney
- Longstanding BPH symptoms likely worsened acutely by stopping tamsulosin and hospital admission with large amount of pain medication
- Discussed options of patient of resuming tamsulosin for trial of void vs discharge home with rodrigues catheter in place for further outpatient eval
- Resume tamsulosin 0.4mg QHS
- Trial of void tomorrow - rodrigues out early AM
- Trend PVR
- He will likely benefit from eventual outlet procedure like TURP, however would prefer to delay this to allow for proper cancer screening and possible workup for neurogenic bladder first
[2023-08-28] MEDS: FLOMAX 0.400000000000000022 MG PO (20:32)
[2023-08-28] MEDS: DILAUDID 0.5 MG IV (21:02)
[2023-08-28 21:21] LABS: Glucose - Point of Care 158 mg/dl (70-99)
[2023-08-28] MEDS: LANTUS 0.140000000000000013 UNITS SC (21:24)
[2023-08-28 23:00] VITALS: BP 104/62
[2023-08-29] MEDS: TYLENOL 650 MG PO ×3 (05:58→17:15)
[2023-08-29 06:00] VITALS: BMI 24.7
[2023-08-29] MEDS: ROXICODONE 7.5 MG PO ×3 (06:01→20:12)
[2023-08-29 07:00] VITALS: BP 129/56
[2023-08-29 07:11] LABS: Hematocrit 25.3 % (39.0-52.0); Hemoglobin 8.7 g/dL (13.0-18.0); Mean Corp Hgb Conc. 34.4 g/dL (33.0-37.0); Mean Corpuscular Hgb 29.9 pg (27.0-31.0); Mean Corpuscular Volume 86.9 fL (80.0-94.0); Mean Platelet Volume 10.5 fL (7.4-10.4); Platelet Count 101 10^3/uL (130-400); Red Blood Cell Count 2.91 10^6/uL (4.70-6.10); Red Cell Dist. Width 14.7 % (11.5-14.5); White Blood Cell Count 4.3 10^3/uL (4.8-10.8)
[2023-08-29 08:22] LABS: Glucose - Point of Care 136 mg/dl (70-99)
[2023-08-29 08:22] LABS: Blood Urea Nitrogen 60 mg/dl (9-20); Calcium 8.1 mg/dl (8.4-10.2); Carbon Dioxide 27 mmol/L (22-30); Chloride 106 mmol/L (98-107); Estimated Creatinine Clearance 47 ml/min; Glucose 123 mg/dl (70-99); Potassium 4.9 mmol/L (3.5-5.1); Sodium 137 mmol/L (135-145)
[2023-08-29 08:52] LABS: PSA, Total - Diagnostic 0.59 ng/ml (0.0-4.0)
[2023-08-29] MEDS: PROGRAF 3 MG PO ×2 (09:06→20:13)
[2023-08-29] MEDS: MYFORTIC DELAYED REL. 180 MG PO ×2 (09:06→20:13)
[2023-08-29] MEDS: COLACE PO ×2 (09:09→20:11)
[2023-08-29] MEDS: MIRALAX 17 GRAMS PO (09:09)
[2023-08-29] MEDS: ASPIR LOW (ENTERIC COATED) 81 MG PO (09:09)
[2023-08-29] MEDS: HEPARIN SC ×2 (09:09→20:11)
[2023-08-29] MEDS: NOVOLOG FLEXPEN 8 UNITS SC ×3 (09:45→17:59)
[2023-08-29] MEDS: NOVOLOG FLEXPEN-HIGH RESISTANCE 1 UNITS SC ×2 (09:45→13:22)
--- NOTE | 2023-08-29 10:57 | W.PN.HOSP.TC ---
Addendum entered and electronically signed by Lucas Collado MD 08/29/23 22:11:
Attending Addendum-
I saw and evaluated the patient. I reviewed the resident�s note and agree with findings and plan as documented in the resident�s note. Appears comfortable but complains of back pain. Urinating as usual post rodrigues removal. Full 12 point ROS reviewed
and negative except as documented Exam: Vitals reviewed in chart GEN-NAD heart SM @ RUSB RRR lungs clear abd soft LE no edema - non palp bladder rodrigues removed Plan:
#Right heel pressure ulcer (POA)
-Diabetic Foot wound-- apprec podiatry--no need for surgical debridement--arterial US normal
-blood cultures negative, Wound cultures shows E. coli, Staph aureus, Strep pyogenes
-s/p IV Zosyn and vancomycin switched to keflex-completed course
-cont wound care
# Kidney/liver transplant-2021--History of hepatitis C and liver cirrhosis--Continue tacrolimus and mycophenolate
- Tacrolimus level WNL
- patient follows with [facility]
- nephro on board- appreciate input
# ROXY on CKD 3a - creatinine baseline was ~ 1.2-1.3
- worsening
- start IVF
- repeat BMP in am
# Hyperkalemia
- resolved
# Acute urinary retention due to BPH
- uro c/s appreciated
- rodrigues placed - on 08/25
- voiding trial underway 08/28- voiding as usual
- cont flomax
- f/u uro as OP
# Chronic Back Pain with Radiculopathy Chronic narcotic use and abuse
- fentanyl in tox screen
-has been asking for frequent IV Dilaudid per nursing
-ultimately needs PT-refusing
-oxy PRN dosing increased on 08/24
-DC IV Dilaudid qhs
-patient states he takes medical marijuana outside the hospital
# H/O Right Hip fx
-appreciate ortho consult
-X-rays of the right hip demonstrate a healed right hip fracture.
- PT OT
# Normocytic anemia--H&H stable
# Chronic thrombocytopenia---Monitor may need to hold MMP if decreasing
# IDDM--Insulin sliding scale lantus 14 novolog 8 q ac follow accuchecks closely
# CAD--Continue aspirin
# Severe protein calorie malnutrition--affects wound healing
DVT prophylaxis- heparin
CODE STATUS -- FULL CODE
Dispo DC 24-48hrs likely home not agreeable to SNF/PT assessment
Time spent coordinating care, review of plan of care with resident, review of records, med rec, consults, notes, labs, rads, d/w nursing � 55 mins
Original Note:
Today's Communication/Plan
-
Monitor kidney function
Discharge planning
Assessment / Plan
Assessment / Plan
Right heel pressure ulcer (POA)
Diabetic Foot wound-- apprec podiatry--no need for surgical debridement--arterial US normal
-blood cultures negative, Wound cultures shows E. coli, Staph aureus, Strep pyogenes
- Wound care on board
- Completed Abx course (broad spectrum -> Cephalexin x 7 days)
--now agreeable to SNF - [facility]
Heart murmur
Chronic, known to pt
Hx of Kidney/liver transplant-
Transplant in 2021--History of hepatitis C and liver cirrhosis--
-Continue tacrolimus and mycophenolate
-Tacrolimus level is therapeutic
-patient follows with [facility] and states he has an upcoming appointment within next month
ROXY-
Creatinine 1.7 from 1.5 yesterday. Creatinine baseline was ~ 1.0-1.2 in june; pt confirms 1.2 range is his baseline
Renal US of donor kidney - hydronephrosis + hydroureter
-Hx of BPH
-nephro on board
-urology on board: Flomax started. Outpatient evaluation of urinary retention
-rodrigues from 08/25 followed by improvement in kidney function. Rodrigues removed this AM 08/28
-etiology of retention may be 2/2 opiate use currently on Oxycodone, pt understands that we are careful with pain mangement
Lower Back pain
Right Hip Pain
Sciatica - description of pain traveling down lower back to groin/leg
-appreciate ortho consult
-X-rays of the right hip demonstrate a healed right hip fracture. Hardware is intact with no signs of loosening or failure.
-X-rays of the right knee demonstrate mild degenerative changes with medial and lateral compartment chondrocalcinosis.
- Dilaudid was stopped due to pending discharge. Pt asks for BID Dilaudid
- PT evaluation - Pt able to mobilize with supervision using rolling walker
- Oxycodone for pain control. PDMP shows slow taper of home Oxycodone. Most recent home dose 5mg, 5 days, QTY 15
- patient states he takes medical marijuana outside the hospital
Normocytic anemia
- Slow downward trend of hemoglobin
- Pancytopenia, on two immunosuppresants sp liver and kidney transplant
- Check FOBT
Muscle Spasms:
- Hypocalcemia - check albumin for corrected calcium
- Check Iron panel
- Cyclobenzaprine
Hypocalcemia:
- Check Albumin for corrected calcium
Chronic thrombocytopenia---Monitor
IDDM--High resistance Insulin sliding scale, plus Glargine 14 units SC HS, Novolog 8 units SC AC
CAD--Continue aspirin
Severe protein calorie malnutrition--affects wound healing
DVT prophylaxis- heparin
CODE STATUS -- FULL CODE
Anticipated Discharge: Within 24 hours
Subjective/Interval History
-
Date of Service: August 29, 2023
Voids spontaneously after rodrigues removal, with some minor discomfort.
Complains of muscle cramp
Objective Data
-
Labs:
Laboratory Results
08/29/23
06:49
WBC 4.3 L
Hgb 8.7 L
Hct 25.3 L
Plt Count 101 L
Sodium 137
Potassium 4.9
Chloride 106
Carbon Dioxide 27
BUN 60 H
Creatinine 1.7 H
Glucose 123 H
Calcium 8.1 L
Vital Signs:
Vital Signs
Temp Pulse Resp BP Pulse Ox
98.0 F 83 18 129/56 100
08/29/23 07:00 08/29/23 07:00 08/29/23 07:00 08/29/23 07:00 08/29/23 07:00
I&O
08/28/23 08/29/23 08/30/23
06:59 06:59 06:59
Intake Total 1500 / 1500 600 / 600
Output Total 1700 / 1700 1850 / 1850
Balance -200 / -200 -1250 / -1250
Review of Systems
-
History Source: Patient
Constitutional: Reports No Symptoms
Respiratory: Reports No Symptoms
Cardiac: Reports No Symptoms
Abdomen/GI: Reports No Symptoms; Denies Abdominal Pain, Nausea, Vomiting, Diarrhea, Constipated, Bloody Stools or Black Stools
Genitourinary: Reports Other (some discomfort with urination after rodrigues removal)
Musculoskeletal: Reports Joint Pain and Other (muscle spasms); Denies Muscle Pain or Edema
Neuro: Denies Dizzy or Headache
Physical Exam
-
General: No Apparent Distress; Negative Respiratory Distress
HEENT: Moist Mucous Membranes and Anicteric
Respiratory: Clear to Auscultation and Non Labored Respirations
Cardiac: Regular Rhythm, S1/S2, Murmur (systolic) and Other (capillary refill <2 sec); Negative Calf Tenderness
GI: Soft, Nontender, Nondistended and Normal Bowel Sounds; Negative Organomegaly
Genito-urinary: Negative Rodrigues
Musculoskeletal: No Clubbing, No Cyanosis and No Edema
Skin: Warm, Dry and Ulcers (r heel ulcer, dressing intact, minimal serous fluid in dressing, no redness, swelling or warmth of right foot)
Neuro: Awake, Alert, Oriented and AO x 3
Psych: Calm
[2023-08-29 11:37] LABS: Albumin 2.6 g/dl (3.5-5.0); Iron 44 ug/dl (49-181)
[2023-08-29 11:47] LABS: Percent Saturation 19 % (20-50); Total Iron Binding Capacity 229 ug/dl (261-462)
[2023-08-29 11:56] LABS: Glucose - Point of Care 147 mg/dl (70-99)
--- NOTE | 2023-08-29 12:12 | W.PN.NEPH.PH ---
Today's Communication / Plan
-
follow BMP
Assessment/Plan
-
ROXY
R heel pressure ulcer
Left side Royator cuff inj
Coronary Artery Disease with stents
Left Kidney/Liver Transplant in 2021 for Cirrhosis secondary to Hepatitis C-at [facility] February 26, 2022, b/l 1.3
Diabetes Mellitus, Type II no history of diabetic neuropathy or retinopathy
Chronic back pain requiring chronic opioid dependence
DJD -C3-C4, C5-C6
Urine drug screen positive for fentanyl
Anemia
Thrombocytopenia
Plan:
follow BMP
maintain rodrigues for now, managing, restarted flomax
follow CBC, if plt fall further may need to reduce MMF
-
-
Date of Service: August 29, 2023
CC / HPI / ROS
-
Chief Complaint:
ROXY
History of Present Illness:
ROXY/Cr up to 1.7
plt lower at 101
BP stable
rodrigues remains in place for retention/BPH
on immunosuppression for renal transplant
Review of Systems:
back and leg pain persists
no CP/SOB
Labs
-
Labs:
WBC 4.3 10^3/uL (4.8-10.8) L 08/29/23 06:49
RBC 2.91 10^6/uL (4.70-6.10) L 08/29/23 06:49
Hgb 8.7 g/dL (13.0-18.0) L 08/29/23 06:49
Hct 25.3 % (39.0-52.0) L 08/29/23 06:49
Plt Count 101 10^3/uL (130-400) L 08/29/23 06:49
Sodium 137 mmol/L (135-145) 08/29/23 06:49
Potassium 4.9 mmol/L (3.5-5.1) 08/29/23 06:49
Chloride 106 mmol/L (98-107) 08/29/23 06:49
Carbon Dioxide 27 mmol/L (22-30) 08/29/23 06:49
BUN 60 mg/dl (9-20) H 08/29/23 06:49
Creatinine 1.7 mg/dL (0.7-1.3) H 08/29/23 06:49
eGFR 45.30 08/29/23 06:49
Glucose 123 mg/dl (70-99) H 08/29/23 06:49
Calcium 8.1 mg/dl (8.4-10.2) L 08/29/23 06:49
Albumin 2.6 g/dl (3.5-5.0) L 08/29/23 06:49
Physical Exam
-
Vital Signs:
Vital Signs
Temp Pulse Resp BP Pulse Ox
98.0 F 83 18 129/56 100
08/29/23 07:00 08/29/23 07:00 08/29/23 07:00 08/29/23 07:00 08/29/23 09:15
Cardiovascular:: Regular rate and rhythm
Respiratory:: Bilateral: Coarse
Lung Excursion:: Normal
Abdomen:: Nontender and Soft
Bowel Sounds:: Normal
Extremity Edema:: None: Bilateral:
--- NOTE | 2023-08-29 12:44 | W.PN.URO.CBU ---
Today's Communication / Plan
-
Continue tamsulosin
Trial of void
Trend PVR
Assessment / Plan
-
63M with ROXY and apparent moderate volume urinary retention with hydronephrosis of transplant kidney during admission for diabetic foot wound
- Source of ROXY unclear - bladder volume on the low side to cause reflux nephropathy, however this is more likely with a transplant kidney
- Longstanding BPH symptoms likely worsened acutely by stopping tamsulosin and hospital admission with large amount of pain medication
- Mejia removed this AM for trial of void
- Trend PVR - reminded patient to inform nurse next time he voids so bladder scan can be done
- He will likely benefit from eventual outlet procedure like TURP, however would prefer to delay this to allow for proper cancer screening and possible workup for neurogenic bladder first
Diagnosis
-
Date of Service: August 29, 2023
-
Patient Diagnosis:
BPH
Urinary retention
ROXY on CKD s/p kidney transplant
Post Op Day:
Subjective
-
catheter removed this AM
voided once so far but PVR was not obtained
Objective
-
Vital Signs
Temp Pulse Resp BP Pulse Ox
98.0 F 83 18 129/56 100
08/29/23 07:00 08/29/23 07:00 08/29/23 07:00 08/29/23 07:00 08/29/23 09:15
Intake and Output
08/28/23 08/29/23 08/30/23
06:59 06:59 06:59
Intake Total 1500 / 1500 600 / 600
Output Total 1700 / 1700 185 / 0
Balance -200 / -200 -1250 / -1250
Intake:
Oral fluids 1500 / 1500 600 / 600
Output:
Urine, Mejia 1700 / 1700 185 / 1849
Laboratory Results
08/29/23 06:49
08/29/23 06:49
Physical Exam
-
General - well developed, well nourished, no acute distress
Chest - clear bilaterally
Abdomen - soft, non-tender
Mejia removed
Skin - warm & dry with no rash
Neuro - AOx3, no motor deficits
--- NOTE | 2023-08-29 13:24 | PTCARENOTE ---
pt instructed x2 to let staff now when he has urinated in an attempt to obtain PVR. pt non compliant
[2023-08-29 15:00] VITALS: BP 113/66
[2023-08-29 16:46] LABS: Glucose - Point of Care 198 mg/dl (70-99)
[2023-08-29] MEDS: FLEXERIL 10 MG PO (17:15)
[2023-08-29] MEDS: DAKIN'S SOLUTION 0.125% 1/4 STRENGTH 10 ML TOPICAL (17:16)
[2023-08-29] MEDS: NOVOLOG FLEXPEN-HIGH RESISTANCE 2 UNITS SC (17:59)
--- NOTE | 2023-08-29 21:00 | PTCARENOTE ---
pt on voiding trial d/t rodrigues being removed this AM. ordered to obtain post void residual. pt voided 250, post void scanned for 443. pt unable to void anymore, asked pt to try and stand up to void, pt refused. ALTON Gamez notified, one time straight
cath ordered. able to get 400 cc out of bladder. call prasad within reach.
[2023-08-29 21:33] LABS: Glucose - Point of Care 197 mg/dl (70-99)
[2023-08-29] MEDS: FLOMAX 0.400000000000000022 MG PO (21:37)
[2023-08-29] MEDS: LANTUS 0.140000000000000013 UNITS SC (21:37)
--- NOTE | 2023-08-29 22:41 | PTCARENOTE ---
RN went to give pt his 2199 medications, upon entering pt asking for his IV dilaudid. this RN explained to pt that his IV dilaudid has been discontinued. pt immediately became aggressive and agitated. pt began to yell at his RN demanding his IV
dilaudid and that no one had told him it was discontinued. this RN explained to pt per RNs understanding, residents had a lengthy conversation during the day about dilaudid being stopped and pt was apparently agreeable. pt insisting he was never
told about his and no one talked to him. pt screaming 'i need my pain medication to sleep. i will never sleep, im in pain! i will sit here and yell all night. i get dilaudid every 24 hours! im not fucking doing this. call the doctor!'. RN stated she
would TT the SHEAR GRINDER OPERATOR HELPER. no new orders at this time. pt is now refusing all treatment- VS, IVFs. pt in bed, call prasad within reach. safe environment maintained.
[2023-08-30] MEDS: TYLENOL PO (00:55)
[2023-08-30] MEDS: TYLENOL 650 MG PO ×3 (05:40→18:36)
[2023-08-30 06:00] VITALS: BMI 24.7
[2023-08-30 07:00] VITALS: BP 134/82
[2023-08-30 08:09] LABS: Glucose - Point of Care 142 mg/dl (70-99)
--- NOTE | 2023-08-30 08:20 | W.DCSUMMARY ---
Discharge Summary
Discharge Data
Date of Admission: 08/15/23
Date of Discharge: 09/01/23
-
Pending Results: No
Hospital Course
63-year-old male with history of liver and kidney transplant, and IVC filter, presented to the ED on 08/14 with right hip pain and a new rash. Patient in the ED vitals were stable, afebrile. patient lost 20 pounds since since his right ORIF
following right hip fracture, and has been unhoused for the past 2 months, living in his car. Patient also developed a blister on his right heel which ruptured with malodorous discharge. He was started on vancomycin and Zosyn which was changed to
cephalexin through 08/25/2023. X-ray showed no evidence of osteomyelitis. X-ray of right knee and right foot where unremarkable. His right hip surgical site is fully healed there is no swelling, warmth, dehiscence or drainage. Patient's rash and
leukocytosis improved with antibiotics. Labs showed pancytopenia, H&H stable. Blood cultures were negative. Patient remained afebrile throughout stay.
Wound culture of heel ulcer was positive for E. coli, MSSA, Streptococcus pyogens, MRSA negative. For right heel, daily gauze dressing and Krish to right heel where advised per podiatry, no weightbearing restrictions, no surgical debridement needed
at this time. Patient was also started on Lantus 15 units, short acting insulin 13 units, later titrated to Lantus 14 units and Novolog 8units AC + high resistance insulin sliding scale to maintain adequate blood glucose levels. Patient has a
difficult living situation and would benefit from acute care rehab. [facility].
He developed an ROXY, with some urinary retention alternating between spontaneous voiding and rodrigues/straight cath. Renal US of donor kidney - hydronephrosis + hydroureter, suggesting retention and reflux. With patient's wishes for surgery and
challenging follow up, patient was scheduled for TURP procedure. Unfortunately DVT of undetermined age was found in his left lower extremity and surgery was canceled after patient declined anticoagulant therapy. Echo showed normal ventricular
systolic function, mild concentric left ventricular hypertrophy, and moderate aortic stenosis.
He is being discharged to [facility]
On the day of discharge, patient's vitals and labs are stable.
Will need to follow up with urology for urinary retention workup and possible TURP procedure
Follow-up with cardiology
Follow-up with family physician Dr. Geneva Lantigua, within 2 weeks of discharge
Discharge Plan
-
Patient Disposition: Snf/SNF
Discharge Diagnosis/Procedures: Right hip pain with rash resolved, right heel pressure ulcer present on admission, known heart murmur, liver/kidney transplant 2021, mild acute kidney injury, normocytic anemia, chronic thrombocytopenia, type 2
diabetes mellitus insulin requiring, coronary artery disease, severe protein calorie malnutrition
Condition: Good
Diet: Diabetic, Carb Controlled
Activity: As tolerated
Driving Restrictions: As prior to admission
Bathing Restrictions: None
Blood Work: BMP on Monday08/25/23; Tacrolimus level measured before AM dose
Activity Restrictions/Additional Instructions:
Wound Care Instructions
R heel-clean with 1/4 strength Dakin's solution, no sting barrier wipe to surrounding skin, adaptic, alginate, cover with silicone border foam and stockinet or ABD pad and Kerlix wrap, change daily and prn drainage.
R pressure relief shoe.
Soft heel relief boots as tolerated (i.e. TruVue lite boots); elevate heels off bed with pillows while boots off.
Pressure redistributing chair cushion (i.e. Air chair cushion).
Follow up with aerodynamics professor.
Follow up at wound care center call for an appointment.
Referrals:
Geneva Lantigua, DO [Family Provider] - in less than 1 week
Additional Discharge Medication Instructions: Continue Cephalexin 500mg QID through 08/25/23
Prescriptions:
New
cephalexin 500 mg Capsule
500 mg PO QID Qty: 0 0RF
oxycodone 5 mg Tablet
5 mg PO Q4HPRN PRN (Reason: moderate pain) Qty: 7 0RF
Dakin's Solution 0.125 % Solution
1 applic topical DAILY Qty: 0 0RF
Insulin Glargine Lantus [Lantus] 15 UNITS
Subcutaneous Insulin Syringe [Syringe-Insulin] 0 UNIT
As Directed mls/hr SC HS
Ordered By: Norma Pollock MD
Last Taken: 08/24/23 22:35 0.15 mls
Continued
aspirin 81 mg Tablet,Delayed Release (Dr/Ec)
81 mg PO DAILY
tacrolimus 1 mg Capsule
3 mg PO Q12H@
Patient Comments:
08/15/2023, last filled on 12/23/2023 for 30-day supply.
insulin lispro 100 unit/mL insulin pen
0 sliding scale dose SC DIRECTED
Patient Comments:
08/15/2023, pt. uses this med. on a sliding scale but does not know what that sliding scale is; per pt., if his BS is around 270 he will inject 6 units.
mycophenolate sodium 180 mg Tablet,Delayed Release (Dr/Ec)
180 mg PO Q12H@
Patient Comments:
08/15/2023, last filled on 12/23/2023 for 30-day supply.
Discontinued
oxycodone 10 mg Tablet
10 mg PO BID PRN (Reason: severe pain)
Patient Comments:
08/15/2023, last filled on 07/24/2023 for 30 tablets per PDMP.
Discharge Date and Time
Print Language: SYRIAC
--- NOTE | 2023-08-30 08:22 | W.PN.HOSP.TC ---
Addendum entered and electronically signed by Lucas Collado MD 08/30/23 22:35:
Attending Addendum-
I saw and evaluated the patient. I reviewed the resident�s note and agree with findings and plan as documented in the resident�s note. Urinating as usual post rodrigues removal. Complains of significant back pain this am. asking for dilaudid. Full 12
point ROS reviewed and negative except as documented Exam: Vitals reviewed in chart GEN-NAD heart SM @ RUSB RRR lungs clear abd soft LE no edema - non palp bladder rodrigues removed Plan:
#Right heel pressure ulcer (POA)
-Diabetic Foot wound--no need for surgical debridement--arterial US normal
-blood cultures negative, Wound cultures shows E. coli, Staph aureus, Strep pyogenes
-s/p IV Zosyn and vancomycin switched to keflex-completed course
-cont wound care
# Kidney/liver transplant-2021--History of hepatitis C and liver cirrhosis--Continue tacrolimus and mycophenolate
- Tacrolimus level WNL
- patient follows with [facility]
- nephro on board- appreciate input
# ROXY on CKD 3a - creatinine baseline was ~ 1.2-1.3
- improved
- cont IVF
- repeat BMP in am
# Hyperkalemia
- resolved
# Acute urinary retention due to BPH
- uro c/s appreciated
- rodrigues placed - on 08/25
- voiding trial underway 08/28- voiding as usual
- cont flomax
- for TURP in am - NPO p [place]
- patient is medically optimized for OR RCRI class 3- 10%
- check ECHO- 08/29 Left ventricle is small in size. Normal left ventricular systolic function.
Mild concentric left ventricular hypertrophy. No regional wall motion
abnormalities are seen. LV ejection fraction is 65-70%
Mildly dilated right ventricle. Normal right ventricular systolic function.
Moderate aortic stenosis.
# Chronic Back Pain with Radiculopathy Chronic narcotic use and abuse
- fentanyl in tox screen
-has been asking for frequent IV Dilaudid per nursing
-ultimately needs PT
-oxy PRN dosing increased on 08/24
-DC IV Dilaudid qhs
-patient states he takes medical marijuana outside the hospital
# H/O Right Hip fx
-appreciate ortho consult
-X-rays of the right hip demonstrate a healed right hip fracture.
- PT OT
# Normocytic anemia--H&H stable
# Chronic thrombocytopenia---Monitor may need to hold MMP if decreasing
# IDDM--Insulin sliding scale, lantus 14 novolog 8 q ac follow accuchecks closely
- 1/2 dose while NPO
# CAD--Continue aspirin
# Severe protein calorie malnutrition--affects wound healing
DVT prophylaxis- heparin
CODE STATUS -- FULL CODE
Dispo DC to SNF if able 24 hours post turp
Time spent coordinating care, review of plan of care with resident, review of records, med rec, consults, notes, labs, rads, d/w nursing and URO� 54 mins
Original Note:
Today's Communication/Plan
-
NPO from Midnight, pre-op for TURP procedure
Wound care
Assessment / Plan
Assessment / Plan
Right heel pressure ulcer
Diabetic Foot wound-- apprec podiatry--no need for surgical debridement--arterial US normal
-blood cultures negative, Wound cultures shows E. coli, Staph aureus, Strep pyogenes
- Wound care on board
- Completed Abx course (broad spectrum -> Cephalexin x 7 days)
--now agreeable to SNF - [facility]
Heart murmur
Chronic, known to pt
Hx of Kidney/liver transplant-
Transplant in 2021--History of hepatitis C and liver cirrhosis--
-Continue tacrolimus and mycophenolate
-Tacrolimus level is therapeutic
-patient follows with [facility] and states he has an upcoming appointment within next month
ROXY-
Creatinine 1.7 from 1.5 yesterday. Creatinine baseline was ~ 1.0-1.2 in june; pt confirms 1.2 range is his baseline
Renal US of donor kidney - hydronephrosis + hydroureter
-nephro on board
-ROXY cause unclear, urinary retention likely contributing, pt has history of BPH. Urology on board: Pt scheduled for TURP tomorrow
-NPO from midnight
Lower Back pain
Right Hip Pain
Sciatica - description of pain traveling down lower back to groin/leg
-appreciate ortho consult
-X-rays of the right hip demonstrate a healed right hip fracture. Hardware is intact with no signs of loosening or failure.
-X-rays of the right knee demonstrate mild degenerative changes with medial and lateral compartment chondrocalcinosis.
- Dilaudid was stopped due to pending discharge. Pt asks for BID Dilaudid
- PT evaluation - Pt able to mobilize with supervision using rolling walker
- Oxycodone for pain control.
- patient states he takes medical marijuana outside the hospital
Normocytic anemia
- Slow downward trend of hemoglobin
- Pancytopenia, on two immunosuppresants sp liver and kidney transplant
- Check FOBT
Muscle Spasms:
- Iron deficiency
- Cyclobenzaprine
Chronic thrombocytopenia---Monitor
IDDM--High resistance Insulin sliding scale, plus Glargine 14 units SC HS, Novolog 8 units SC AC. Adjust insulin given NPO pre-op
CAD--Continue aspirin
Severe protein calorie malnutrition--affects wound healing
DVT prophylaxis- heparin
CODE STATUS -- FULL CODE
Anticipated Discharge: > 48 hours
Subjective/Interval History
-
Date of Service: August 30, 2023
Pt is uncomfortable and slept poorly due to pain. C/o inadequate pain management
Difficulty voiding urine spontaneously after rodrigues removal yesterday. Declined Flomax because of urinary frequency and incontinence after use.
Per his nurse, he declined to have IVF
Objective Data
-
Labs:
Laboratory Results
08/30/23
06:00
WBC Pending
Hgb Pending
Hct Pending
Plt Count Pending
Sodium Pending
Potassium Pending
Chloride Pending
Carbon Dioxide Pending
BUN Pending
Creatinine Pending
Glucose Pending
Calcium Pending
Vital Signs:
Vital Signs
Temp Pulse Resp BP Pulse Ox
98.4 F 92 18 134/82 100
08/30/23 07:00 08/30/23 07:00 08/30/23 07:00 08/30/23 07:00 08/30/23 07:00
I&O
08/29/23 08/30/23 08/31/23
06:59 06:59 06:59
Intake Total 600 / 600 597 / 597
Output Total 1850 / 1850 1025 / 1025
Balance -1250 / -1250 -428 / -428
Review of Systems
-
History Source: Patient
Respiratory: Reports No Symptoms; Denies Cough or Trouble Breathing
Cardiac: Reports No Symptoms and Palpitations; Denies Chest Pain
Abdomen/GI: Reports No Symptoms; Denies Abdominal Pain, Diarrhea or Constipated
Genitourinary: Reports Incontinence and Difficulty Voiding
Musculoskeletal: Reports Joint Pain (hip pain, sciatica)
Endocrine: Reports Polyuria
Physical Exam
-
General: Appears in Distress and Pain; Negative Respiratory Distress
HEENT: Normocephalic, Atraumatic, Anicteric and [place] Conjunctivae
Respiratory: Clear to Auscultation and Non Labored Respirations; Negative Accessory Resp Muscle Use
Cardiac: Regular Rhythm, S1/S2, Murmur (systolic) and JVD; Negative Chung's Sign
GI: Soft, Nondistended and Tender (LLQ tenderness)
Genito-urinary: Other (LLQ tenderness, site of donor kidney)
Musculoskeletal: No Clubbing, No Cyanosis and Edema, Right Lower Extrem (+1)
Skin: Warm, Dry and Ulcers (Right heel ulcer wound is dry, wound bed is dull pink, no swelling, no purulent discharge, warmth or erythema)
Neuro: Awake, Alert and Oriented
Psych: Agitated
[2023-08-30] MEDS: PROGRAF 3 MG PO ×2 (09:10→20:34)
[2023-08-30] MEDS: HEPARIN SC ×2 (09:10→20:38)
[2023-08-30] MEDS: MIRALAX PO (09:10)
[2023-08-30] MEDS: MYFORTIC DELAYED REL. 180 MG PO ×2 (09:11→20:34)
[2023-08-30] MEDS: COLACE PO ×2 (09:11→20:37)
[2023-08-30] MEDS: ASPIR LOW (ENTERIC COATED) 81 MG PO (09:12)
[2023-08-30] MEDS: NOVOLOG FLEXPEN 8 UNITS SC ×3 (09:13→18:34)
[2023-08-30] MEDS: NOVOLOG FLEXPEN-HIGH RESISTANCE 1 UNITS SC (09:13)
[2023-08-30] MEDS: ROXICODONE 7.5 MG PO ×2 (09:18→18:33)
--- NOTE | 2023-08-30 09:35 | W.PN.URO.CBU ---
Today's Communication / Plan
-
OR tomorrow for TURP/retrograde pyelogram
Assessment / Plan
-
63M with ROXY and apparent moderate volume urinary retention with hydronephrosis of transplant kidney during admission for diabetic foot wound
- Given longstanding BPH symptoms, significant urinary retention with elevated post void residual, and at-risk renal transplant with likely vesicoureteral reflux, he is a good candidate for prostate procedure. Ideally he would have some workup for
neurogenic/atonic bladder due to his poor diabetes control. Given his social situation and stated inability to make follow up appointments, failing to address retention would be higher risk for his renal transplant
- Discussed options of rodrigues catheter placement vs CIC with additional medication management - continued tamsulosin and addition of finasteride vs proceeding to surgical management with TURP. Patient has strong preference for procedure
- Discussed TURP procedure, post op course, recovery, and side effects. Reviewed risks of urinary incontinence, retrograde ejaculation, persistent urinary retention requiring catheter, need for repeat procedure, formation of scar tissue or stricture
-Will also evaluate transplant ureter with retrograde pyelogram at the time of cystoscopy
- Schedule for OR 08/30
- NPO at [place]
PSA <1 - low risk for prostate cancer
Prostate volume <50cc on US this admission
Diagnosis
-
Date of Service: August 30, 2023
-
Patient Diagnosis:
BPH
Urinary retention
ROXY on CKD s/p kidney transplant
Post Op Day:
Subjective
-
poor emptying overnight
need for straight cath x2
tamsulosin not helping with symptoms
Objective
-
Vital Signs
Temp Pulse Resp BP Pulse Ox
98.4 F 92 18 134/82 100
08/30/23 07:00 08/30/23 07:00 08/30/23 07:00 08/30/23 07:00 08/30/23 07:00
Intake and Output
08/29/23 08/30/23 08/31/23
06:59 06:59 06:59
Intake Total 600 / 600 597 / 597
Output Total 1849 1025 / 1025
Balance -1250 / -1250 -428 / -428
Intake:
Oral fluids 600 / 600 597 / 597
Output:
Urine, Rodrigues 1849
Urine, Voided 625 / 625
Straight cath output 400 / 400
Physical Exam
-
General - well developed, well nourished, no acute distress
Chest - clear
Abdomen - soft, non-tender
Skin - warm & dry with no rash
Neuro - AOx3, no motor deficits
Extremities - no clubbing, no cyanosis, no edema
[2023-08-30 10:08] LABS: Hematocrit 27.6 % (39.0-52.0); Hemoglobin 9.5 g/dL (13.0-18.0); Mean Corp Hgb Conc. 34.4 g/dL (33.0-37.0); Mean Corpuscular Hgb 29.2 pg (27.0-31.0); Mean Corpuscular Volume 84.9 fL (80.0-94.0); Platelet Count 105 10^3/uL (130-400); Red Blood Cell Count 3.25 10^6/uL (4.70-6.10); Red Cell Dist. Width 14.7 % (11.5-14.5); White Blood Cell Count 4.6 10^3/uL (4.8-10.8)
[2023-08-30 10:36] LABS: Blood Urea Nitrogen 57 mg/dl (9-20); Calcium 8.6 mg/dl (8.4-10.2); Carbon Dioxide 26 mmol/L (22-30); Chloride 105 mmol/L (98-107); Estimated Creatinine Clearance 53 ml/min; Glucose 215 mg/dl (70-99); Potassium 4.8 mmol/L (3.5-5.1); Sodium 137 mmol/L (135-145); eGFR 52.64
[2023-08-30] MEDS: DILAUDID 0.25 MG IV (10:49)
--- NOTE | 2023-08-30 10:49 | WOUNDNOTE ---
R HEEL (POSTERIOR LATERAL)
--- NOTE | 2023-08-30 10:49 | WOUNDNOTE ---
R HEEL (LATERAL POSTERIOR)
--- NOTE | 2023-08-30 10:50 | WOUNDNOTE ---
[facility] RN note: Patient ambulating with walker. He has the DH shoe for his R foot. He stated he wears the [employer] heel relief boots q hs. Appetite good. R heel ulcer improved, small pale pink with scattered dry yellow fibrin and few small scabbed
areas. R heel dressing applied. Heels off bed with air chair cushion. Will follow as needed. Patient instructed importance of heel pressure relief measures.
--- NOTE | 2023-08-30 10:50 | WOUNDNOTE ---
[facility] RN note: Patient ambulating with walker. He has the DH shoe for his R foot. He stated he wears the [employer] heel relief boots q hs. Appetite good. R heel ulcer improved, small pale pink with some scabbed areas. R heel dressing applied. Heels
off bed with air chair cushion. Will follow as needed.
[2023-08-30 11:59] LABS: Glucose - Point of Care 169 mg/dl (70-99)
--- NOTE | 2023-08-30 13:12 | CM ---
Reviewed chart, spoke with admissions at [facility] who requested that clinical for auth be submitted through patient's secondary insurance. Placed a call to [facility] and was advised to fax all clinical to [phone] for review.
Spoke with patient to discuss discharge planning. Liason from [facility] was there physically to discuss paperwork that patient would need to submit for admission. Patient stated that he was advised that he is not discharging today as he is
scheduled for the OR. Spoke with patient's RN who confirmed this.
Patient stated that he may not want to go to SNF and just f/u with outpatient wound care at discharge.
Plan: Case management will continue to follow and assist with discharge planning. SNF vrs home when stable.
[2023-08-30] MEDS: NOVOLOG FLEXPEN-HIGH RESISTANCE 2 UNITS SC (13:43)
[2023-08-30] MEDS: FLEXERIL 10 MG PO (13:49)
--- NOTE | 2023-08-30 14:46 | W.PN.NEPH.PH ---
Today's Communication / Plan
-
- plan for TURP tomorrow wiht urology
Assessment/Plan
-
ROXY
R heel pressure ulcer
Left side Royator cuff inj
Coronary Artery Disease with stents
Left Kidney/Liver Transplant in 2021 for Cirrhosis secondary to Hepatitis C-at [facility] February 26, 2022, b/l 1.3
Diabetes Mellitus, Type II no history of diabetic neuropathy or retinopathy
Chronic back pain requiring chronic opioid dependence
DJD -C3-C4, C5-C6
Urine drug screen positive for fentanyl
Anemia
Thrombocytopenia
Plan:
follow BMP, Cr down to 1.5 (bl 1.3)
patient was seen by urology who think he is a good candidate for prostate procedure, plan for surgical management with TURP and is scheduled for the OR tomorrow
follow CBC, if plt fall further may need to reduce MMF
-
-
Date of Service: August 30, 2023
CC / HPI / ROS
-
Chief Complaint:
ROXY
History of Present Illness:
ROXY/Cr up to 1.5
plt stable at 105
BP stable
d/c rodrigues due to patient preference for BPH. plan for TURP with uro
on immunosuppression for renal transplant
Review of Systems:
back and leg pain persists
no CP/SOB
Labs
-
Labs:
WBC 4.6 10^3/uL (4.8-10.8) L 08/30/23 09:42
RBC 3.25 10^6/uL (4.70-6.10) L 08/30/23 09:42
Hgb 9.5 g/dL (13.0-18.0) L 08/30/23 09:42
Hct 27.6 % (39.0-52.0) L 08/30/23 09:42
Plt Count 105 10^3/uL (130-400) L 08/30/23 09:42
Sodium 137 mmol/L (135-145) 08/30/23 09:42
Potassium 4.8 mmol/L (3.5-5.1) 08/30/23 09:42
Chloride 105 mmol/L (98-107) 08/30/23 09:42
Carbon Dioxide 26 mmol/L (22-30) 08/30/23 09:42
BUN 57 mg/dl (9-20) H 08/30/23 09:42
Creatinine 1.5 mg/dL (0.7-1.3) H 08/30/23 09:42
eGFR 52.64 08/30/23 09:42
Glucose 215 mg/dl (70-99) H 08/30/23 09:42
Calcium 8.6 mg/dl (8.4-10.2) 08/30/23 09:42
Albumin 2.6 g/dl (3.5-5.0) L 08/29/23 06:49
Physical Exam
-
Vital Signs:
Vital Signs
Temp Pulse Resp BP Pulse Ox
98.4 F 92 18 134/82 98
08/30/23 07:00 08/30/23 07:00 08/30/23 07:00 08/30/23 07:00 08/30/23 09:15
Cardiovascular:: Regular rate and rhythm
Respiratory:: Bilateral: Coarse
Lung Excursion:: Normal
Abdomen:: Nontender and Soft
Bowel Sounds:: Normal
Extremity Edema:: None: Bilateral:
Rodrigues Catheter: No
[2023-08-30 15:00] VITALS: BP 101/56
[2023-08-30] MEDS: DAKIN'S SOLUTION 0.125% 1/4 STRENGTH 10 ML TOPICAL (15:54)
[2023-08-30 17:14] LABS: Glucose - Point of Care 240 mg/dl (70-99)
[2023-08-30] MEDS: NOVOLOG FLEXPEN-HIGH RESISTANCE 4 UNITS SC (18:34)
[2023-08-30 21:34] LABS: Glucose - Point of Care 123 mg/dl (70-99)
[2023-08-30] MEDS: LANTUS 0.0700000000000000067 UNITS SC (21:51)
[2023-08-30] MEDS: FLOMAX PO (21:53)
[2023-08-30] MEDS: ROXICODONE 5 MG PO (21:54)
[2023-08-30 23:08] VITALS: BP 127/70
--- NOTE | 2023-08-30 23:24 | W.PN.UPDATE ---
Addendum entered and electronically signed by ALTON Grande 08/31/23 06:31:
Reported by the nursing staff that the patient is refusing PTT and heparin drip. Spoke to the patient, discussed the importance of starting heparin but he refuses stating that he has IVC filter and this clots are chronic.
Original Note:
Update Note
Progress Note Update
BLE/US result shows Nonocclusive thrombus in the left femoral and popliteal veins. New order of heparin drip was placed. Patient was scheduled for TRUP in am. Dr. Hernández/ urologist made aware.
[2023-08-31] MEDS: TYLENOL PO ×3 (00:11→18:19)
[2023-08-31] MEDS: ROXICODONE 7.5 MG PO ×3 (00:37→16:32)
--- NOTE | 2023-08-31 02:52 | PTCARENOTE ---
New order rec'd for heparin gtt after results of US. This RN notified patient about starting a heparin gtt, patient refused. This RN educated patient about the need for the heparin gtt and importance. Pt. continued to refuse stating, 'I don't want
any blood thinners. I fell and hit my head a few months ago, if I would have been on blood thinners then, I would have bled out.' ALTON Peoples notified. This RN spoke with patient again about need for heparin drip. Patient stated 'I have 3
clots in my leg that I already know about. They put a filter in awhile ago, I don't need blood thinners.' ALTON notified again of patients continued refusal. ALTON Peoples came to floor to discuss with patient. Pt. continues to refuse
heparin. Plan of care ongoing.
--- NOTE | 2023-08-31 03:34 | PTCARENOTE ---
Pt. continues to refuse IVF. Pt. also refusing bladder scans. Plan of care ongoing.
[2023-08-31 03:48] VITALS: BMI 24.7
[2023-08-31 05:24] LABS: Glucose - Point of Care 110 mg/dl (70-99)
[2023-08-31] MEDS: TYLENOL 650 MG PO (05:36)
[2023-08-31] MEDS: ROXICODONE 5 MG PO (05:36)
[2023-08-31] MEDS: NOVOLOG FLEXPEN-HIGH RESISTANCE 1 UNITS SC (05:37)
[2023-08-31 06:00] VITALS: BMI 24.7
[2023-08-31 06:41] LABS: Hematocrit 28.6 % (39.0-52.0); Hemoglobin 9.7 g/dL (13.0-18.0); Mean Corp Hgb Conc. 33.9 g/dL (33.0-37.0); Mean Corpuscular Hgb 29.5 pg (27.0-31.0); Mean Corpuscular Volume 86.9 fL (80.0-94.0); Mean Platelet Volume 9.8 fL (7.4-10.4); Platelet Count 106 10^3/uL (130-400); Red Blood Cell Count 3.29 10^6/uL (4.70-6.10); Red Cell Dist. Width 14.8 % (11.5-14.5); White Blood Cell Count 4.4 10^3/uL (4.8-10.8)
--- NOTE | 2023-08-31 07:19 | W.PN.HOSP.TC ---
Addendum entered and electronically signed by Lucas Collado MD 08/31/23 22:44:
Attending Addendum-
I saw and evaluated the patient. I reviewed the resident�s note and agree with findings and plan as documented in the resident�s note. Urinating as usual post rodrigues removal. found to have DVT and refused heparin last PM. Patient visibly upset 'no
one knws what is going on.' TURP cancelled. Full 12 point ROS reviewed and negative except as documented Exam: Vitals reviewed in chart GEN-NAD heart SM @ RUSB RRR lungs clear abd soft LE no edema - non palp bladder Plan:
#Right heel pressure ulcer (POA)
-Diabetic Foot wound--no need for surgical debridement--arterial US normal
-blood cultures negative, Wound cultures shows E. coli, Staph aureus, Strep pyogenes
-s/p IV Zosyn and vancomycin switched to keflex-completed course
-cont wound care
# Kidney/liver transplant-2021--History of hepatitis C and liver cirrhosis--Continue tacrolimus and mycophenolate
- Tacrolimus level WNL
- patient follows with [facility]
- nephro on board- appreciate input
# Left LE DVT-
- left fem and pop veins
- unknown chronicity
- patient refusing AC states he has IVC
- heme input appreciated clearly stated to patient that IVC will not prevent PE- patient still refusing AC
- makes surgery high risk
- f/u as OP for TURP
- cancel TURP
# ROXY on CKD 3a - creatinine baseline 1.3
- stable
- cont IVF-patient refused
- repeat BMP in am
# Hyperkalemia
- resolved
# Acute urinary retention due to BPH
- uro c/s appreciated
- rodrigues placed - on 08/25
- voiding trial underway 08/28- voiding as usual
- cont flomax
- TURP 08/30- cancelled due to DVT and patient noncompliance
# Aortic Stenosis-
- ECHO- 08/29 Left ventricle is small in size. Normal left ventricular systolic function.
Mild concentric left ventricular hypertrophy. No regional wall motion
abnormalities are seen. LV ejection fraction is 65-70%
Mildly dilated right ventricle. Normal right ventricular systolic function.
Moderate aortic stenosis.
- continued surveillance with cards as OP
# Chronic Back Pain with Radiculopathy Chronic narcotic use and abuse
- fentanyl in tox screen
- has been asking for frequent IV Dilaudid per nursing
- ultimately needs SNF
- oxy PRN dosing increased on 08/24
- DC IV Dilaudid qhs
- patient states he takes medical marijuana outside the hospital
# H/O Right Hip fx
-appreciate ortho consult
-X-rays of the right hip demonstrate a healed right hip fracture.
- PT OT
# Normocytic anemia--H&H stable
# Chronic thrombocytopenia---Monitor may need to hold MMP if decreasing
# IDDM--Insulin sliding scale, lantus 14 novolog 8 q ac follow accuchecks closely
- 1/2 dose while NPO
# CAD--Continue aspirin
# Severe protein calorie malnutrition--affects wound healing
DVT prophylaxis- heparin
CODE STATUS -- FULL CODE
Dispo DC to SNF in AM
Time spent coordinating care, review of plan of care with resident, review of records, med rec, consults, notes, labs, rads, d/w nursing and URO� 60 mins
Original Note:
Today's Communication/Plan
-
TURP procedure cancelled. Resume diabetic diet, pain control, straight cath as needed
Discharge planning
Assessment / Plan
Assessment / Plan
Right heel pressure ulcer
Diabetic Foot wound-- apprec podiatry--no need for surgical debridement--arterial US normal
-blood cultures negative, Wound cultures shows E. coli, Staph aureus, Strep pyogenes
- Wound care on board
- Completed Abx course (broad spectrum -> Cephalexin x 7 days)
--now agreeable to [facility]
Heart murmur
Chronic, known to pt
Hx of Kidney/liver transplant-
Transplant in 2021--History of hepatitis C and liver cirrhosis--
-Continue tacrolimus and mycophenolate
-Tacrolimus level is therapeutic
-patient follows with [facility] and states he has an upcoming appointment within next month
ROXY-
Creatinine stable at 1.5 today. Creatinine baseline was ~ 1.0-1.2 in june; pt confirms 1.2- 1.3 range is his baseline
Renal US of donor kidney - hydronephrosis + hydroureter
-nephro on board
-ROXY cause unclear, urinary retention likely contributing, pt has history of BPH. Scheduled for TURP today canceled due to DVT found on lower extremity venous ultrasound. Patient refused anticoagulant therapy
-DC planning. Outpatient urology follow-up
Lower Back pain
Right Hip Pain
Sciatica - description of pain traveling down lower back to groin/leg
-appreciate ortho consult
-X-rays of the right hip demonstrate a healed right hip fracture. Hardware is intact with no signs of loosening or failure.
-X-rays of the right knee demonstrate mild degenerative changes with medial and lateral compartment chondrocalcinosis.
- PT evaluation - Pt able to mobilize with supervision using rolling walker
- Oxycodone for pain control
- patient states he takes medical marijuana outside the hospital
Normocytic anemia
- Pancytopenia, on two immunosuppressants sp liver and kidney transplant
- hemoglobin stable
Muscle Spasms:
- likely Iron deficiency
- Cyclobenzaprine
Chronic thrombocytopenia---Monitor
IDDM--High resistance Insulin sliding scale, plus Glargine 14 units SC HS, Novolog 8 units SC AC.
CAD--Continue aspirin
Severe protein calorie malnutrition--affects wound healing
DVT prophylaxis- heparin
CODE STATUS -- FULL CODE
Anticipated Discharge: Within 24 hours
Subjective/Interval History
-
Date of Service: August 31, 2023
BLE/US result shows Nonocclusive thrombus in the left femoral and popliteal veins. Per nursing, patient is refusing PTT and heparin drip stating that he has IVC filter and his clots are chronic.
Objective Data
-
Labs:
Laboratory Results
08/31/23 08/31/23
00:15 06:32
WBC Cancelled 4.4 L
Hgb Cancelled 9.7 L
Hct Cancelled 28.6 L
Plt Count Cancelled 106 L
APTT Cancelled
Sodium Pending
Potassium Pending
Chloride Pending
Carbon Dioxide Pending
BUN Pending
Creatinine Pending
Glucose Pending
Calcium Pending
Vital Signs:
Vital Signs
Temp Pulse Resp BP Pulse Ox
98.7 F 94 20 127/70 100
08/30/23 23:08 08/30/23 23:08 08/30/23 23:08 08/30/23 23:08 08/30/23 23:08
I&O
08/30/23 08/31/23 09/01/23
06:59 06:59 06:59
Intake Total 597 / 597 600 / 600
Output Total 1025 / 1025 1800 / 1800
Balance -428 / -428 -1200 / -1200
Review of Systems
-
History Source: Patient
Constitutional: Reports No Symptoms
Respiratory: Reports No Symptoms; Denies Cough or Trouble Breathing
Cardiac: Reports No Symptoms; Denies Chest Pain or Palpitations
Abdomen/GI: Reports No Symptoms; Denies Abdominal Pain
Genitourinary: Reports Frequency and Incontinence; Denies Difficulty Voiding
Neuro: Reports Headache
Physical Exam
-
General: Other (Appears uncomfortable)
HEENT: Normocephalic, Atraumatic and Anicteric
Respiratory: Clear to Auscultation and Non Labored Respirations; Negative Wheezes, Rales, Rhonchi or Accessory Resp Muscle Use
Cardiac: Regular Rhythm, S1/S2 and Murmur (Systolic); Negative Calf Tenderness
GI: Soft, Nondistended and Tender (Mild left lower quadrant tenderness)
Genito-urinary: Other (Left lower quadrant tenderness mild)
Musculoskeletal: No Clubbing, No Cyanosis and No Edema
Skin: Warm, Dry and Ulcers (Right heel ulcer, dressing intact)
Neuro: Awake, Alert and Oriented
Psych: Agitated
[2023-08-31 07:30] VITALS: BP 135/80
[2023-08-31 07:51] LABS: Blood Urea Nitrogen 55 mg/dl (9-20); Calcium 8.7 mg/dl (8.4-10.2); Carbon Dioxide 24 mmol/L (22-30); Chloride 107 mmol/L (98-107); Estimated Creatinine Clearance 53 ml/min; Glucose 89 mg/dl (70-99); Potassium 4.8 mmol/L (3.5-5.1); Sodium 138 mmol/L (135-145); eGFR 52.64
[2023-08-31] MEDS: PROGRAF 3 MG PO ×2 (08:30→20:24)
[2023-08-31] MEDS: MYFORTIC DELAYED REL. 180 MG PO ×2 (08:30→20:25)
[2023-08-31] MEDS: COLACE PO ×2 (08:30→20:24)
[2023-08-31] MEDS: ASPIR LOW (ENTERIC COATED) 81 MG PO (08:30)
[2023-08-31] MEDS: MIRALAX PO (08:31)
--- NOTE | 2023-08-31 08:52 | CON.ONC ---
Impression
Impression
Remote lower extremity thrombus no clinical symptoms to suggest acuity
Remote IVC
Cellulitis
Diabetes
Vascular disease
Plan
Plan
Review of ultrasound suggests nonocclusive thrombus of indeterminate age suspect chronic given history and current clinical findings
Chronic IVC filter this will have little protective effect against pulmonary embolus as collateral circulation typically develops after 6 months
Would recommend obtaining ultrasound images from [facility] for comparison, however, patient is adamantly refusing outpatient anticoagulation despite the knowledge that the IVC filter is likely no longer protective against pulmonary embolus
Suspect if oral anticoagulation was provided patient would be noncompliant
Patient History
History of Present Illness
Mr. Crawford is a 63YOM with PMH of diabetes (on insulin) who underwent a liver/kidney txp in 2021 at [facility] for his hep C induced cirrhosis and subsequent renal failure. He is maintained on MMF and tac for IS. He also has a prior history of
coronary artery disease and has undergone previous stenting procedures and is maintained on aspirin therapy. He remains chronically on oxycodone for opioid dependent pain. The patient had a recent slip and fall and was in the hospital in June 2023
for right ORIF. Patient went to a rehab then was kicked out because he ran out of days. Currently homeless and lives out of his car. Noticed that his hip pain was worse and blister was looking worse so he presented to the hospital. Now receiving
treatment. Multiple days of vanc/zosyn. He reports no change in lower extremity swelling however a Doppler ultrasound was performed given his history of previous thrombosis in the lower extremity with IVC filter
Past-Medical/Surgical History
Past Medical History
Past Medical History:CAD, IDDM and Other (Kidney/renal transplant) Hepatitis C, BPH)
Past Surgical History:Cardiac (Stents), Orthopedic (Right hip ORIF) and Other (IVC [facility] 7 years ago)
Social History
Tobacco: Former Smoker
Alcohol: None
Family History
Family History: Reviewed & Not Pertinent
Allergies/Home Medications
Patient Medication
�Medication �Instructions �Recorded �Confirmed �Last Taken �Type
aspirin 81 mg tablet,delayed 81 mg PO DAILY Blood Clot 08/15/23 08/15/23 08/14/23 History
release Prevention/Tx
insulin lispro 100 unit/mL 0 sliding scale dose SC 08/15/23 08/15/23 08/15/23 History
subcutaneous pen DIRECTED Diabetes
mycophenolate sodium 180 mg 180 mg PO Q12H@0800,1999 Kidney 08/15/23 08/15/23 08/15/23 History
tablet,delayed release transplant
tacrolimus 1 mg capsule, 3 mg PO Q12H@0800,1999 kidney 08/15/23 08/15/23 08/15/23 History
immediate-release transplant
Insulin Glargine Lantus As Directed mls/hr SC HS 08/21/23 Unknown Rx
[Lantus] 15 units
cephalexin 500 mg capsule 500 mg PO QID #0 caps 08/21/23 Unknown Rx
oxycodone 5 mg tablet 5 mg PO Q4HPRN PRN moderate pain 08/21/23 Unknown Rx
#7 tabs
sodium hypochlorite 0.125 % 1 applic topical DAILY #0 mL 08/21/23 Unknown Rx
solution (Dakin's Solution)
Active Medications
Generic Name Dose Route Start Last Admin
Trade Name Freq PRN Reason Stop Dose Admin
Acetaminophen 650 mg 08/17/23 18:00 08/31/23 05:36
Acetaminophen 325 Mg Tablet PO 09/14/23 17:59 650 mg
Q6H EULOGIO Administration
Aspirin 81 mg 08/16/23 08:00 08/31/23 08:30
Aspirin 81 Mg (Enteric Coated) Tablet PO 09/13/23 07:59 81 mg
DAILY EULOGIO Administration
Cyclobenzaprine HCl 10 mg 08/29/23 22:00 08/30/23 13:49
Cyclobenzaprine 10 Mg Tablet PO 09/26/23 21:59 10 mg
Q12H PRN Administration
muscle spasm
Dextrose 12.5 grams 08/15/23 22:00
Dextrose 50% (0.5 Grams/Ml) 50 Ml Syringe IV 09/12/23 21:59
[id number] PRN
hypoglycemia
Protocol
Docusate Sodium 100 mg 08/16/23 08:00 08/31/23 08:30
Docusate Sodium 100 Mg Capsule PO 09/13/23 07:59 Not Given
BID EULOGIO
Glucagon 1 mg 08/15/23 22:00
Glucagon 1 Mg Vial IM 09/12/23 21:59
PRN PRN
hypoglycemia
Protocol
Heparin Sodium 6,300 units 08/30/23 23:18
Heparin 80 Units/Kg Iv Rebolus IV 09/27/23 23:17
PRN PRN
PTT < OR = 64 seconds
Heparin Sodium 3,100 units 08/30/23 23:18
Heparin 40 Units/Kg Iv Rebolus IV 09/27/23 23:17
PRN PRN
PTT = 64.1 to 72.9 seconds
Insulin Glargine 7 units/ 0.07 mls @ 0 mls/hr 08/30/23 22:00 08/30/23 21:51
Device SC 09/24/23 21:59 0.07 mls
HS EULOGIO Administration
As Directed
Heparin Sodium 25,000 units in 250 mls @ 0 mls/hr 08/30/23 23:15
Heparin 06119 Units/250 Ml IV
PER PROTOCOL EULOGIO
Protocol
Per Protocol
Insulin Aspart 8 units 08/25/23 16:30 08/30/23 18:34
Insulin Aspart (100 Units/Ml) 3 Ml Flexpen SC 09/16/23 16:29 8 units
AC EULOGIO Administration
Insulin Aspart 0 units 08/31/23 06:00 08/31/23 05:37
Insulin Aspart High Resistance 300 Units/3 Ml Pen.Injctr SC 09/28/23 05:59 1 units
Q6 EULOGIO Administration
Protocol
Mycophenolate Sodium 180 mg 08/16/23 08:00 08/31/23 08:30
Mycophenolic Acid [address] Tablet (Non Form) PO 180 mg
Q12 EULOGIO Administration
Oxycodone HCl 7.5 mg 08/25/23 10:33 08/31/23 00:37
Oxycodone 5 Mg Regular Release Tablet PO 09/08/23 10:32 7.5 mg
Q6HPRN PRN Administration
severe pain
Oxycodone HCl 5 mg 08/30/23 09:51 08/31/23 05:36
Oxycodone 5 Mg Regular Release Tablet PO 09/13/23 09:50 5 mg
Q4HPRN PRN Administration
moderate pain
Polyethylene Glycol 17 grams 08/16/23 08:00 08/31/23 08:31
Polyethylene Glycol Powder 17 Grams Packet PO 09/13/23 07:59 Not Given
DAILY EULOGIO
Sodium Chloride 0 flush 08/15/23 23:00 08/18/23 06:39
Sodium Chloride 0.9% (Flush) Syringe IV 09/12/23 22:59 2 flush
PER PROTOCOL EULOGIO Administration
Sodium Hypochlorite 0 ml 08/17/23 08:00 08/30/23 15:54
Dakin's Solution 0.125% (1/4 Strength) 473 Ml Bottle TOPICAL 09/14/23 07:59 10 ml
DAILY EULOGIO Administration
Tacrolimus 3 mg 08/16/23 08:00 08/31/23 08:30
Tacrolimus 1 Mg Capsule PO 09/13/23 07:59 3 mg
Q12 EULOGIO Administration
Tamsulosin HCl 0.4 mg 08/29/23 22:00 08/30/23 21:53
Tamsulosin 0.4 Mg Capsule PO 09/26/23 21:59 Not Given
HS EULOGIO
Review of Systems
-
10 point review systems fails to elicit additional complaints other than those noted in the HPI. He specifically denies change in lower extremity swelling or sensation
Physical Exam
-
Physical Exam
General: AOx3, No Distress and Nontoxic
HEENT: EOMI, Anicteric, No JVD and No Thyromegaly
Respiratory: Clear and Normal Excursion
Cardiac: S1/S2, Regular Rate/Rhythm and No Edema
Abdomen: Soft, Nontender, Nondistended and Normal Bowel Sounds
Genito-urinary: No Costovertebral Tender and Clear Urine
Musculoskeletal: No Clubbing, No Cyanosis and No Edema
Skin: No Rash
Neuro: Nonfocal/Grossly Intact
Psych: Mood/afflect pleasant and Insight/judgement good
Labs
Lab Results
WBC 4.4 10^3/uL (4.8-10.8) L 08/31/23 06:32
RBC 3.29 10^6/uL (4.70-6.10) L 08/31/23 06:32
Hgb 9.7 g/dL (13.0-18.0) L 08/31/23 06:32
Hct 28.6 % (39.0-52.0) L 08/31/23 06:32
MCV 86.9 fL (80.0-94.0) 08/31/23 06:32
MCH 29.5 pg (27.0-31.0) 08/31/23 06:32
MCHC 33.9 g/dL (33.0-37.0) 08/31/23 06:32
RDW 14.8 % (11.5-14.5) H 08/31/23 06:32
Plt Count 106 10^3/uL (130-400) L 08/31/23 06:32
MPV 9.8 fL (7.4-10.4) 08/31/23 06:32
Abs Immat Gran (auto) 0.1 10^3/uL (0-0.05) H 08/26/23 06:46
Absolute Neuts (auto) 4.0 10^3/uL (1.4-6.5) 08/26/23 06:46
Absolute Lymphs (auto) 1.3 10^3/uL (1.2-3.4) 08/26/23 06:46
Absolute Monos (auto) 0.5 10^3/uL (0.1-0.6) 08/26/23 06:46
Absolute Eos (auto) 0.1 10^3/uL (0-0.7) 08/26/23 06:46
Absolute Basos (auto) 0.1 10^3/uL (0-0.2) 08/26/23 06:46
Immature Gran % 0.8 % (0-0.5) H 08/26/23 06:46
Neutrophils % 67.2 % (42.2-75.2) 08/26/23 06:46
Lymphocytes % 21.0 % (20.5-51.1) 08/26/23 06:46
Monocytes % 8.2 % (1.7-9.3) 08/26/23 06:46
Eosinophils % 2.0 % (0-6) 08/26/23 06:46
Basophils % 0.8 % (0-2) 08/26/23 06:46
Creatinine 1.5 mg/dL (0.7-1.3) H 08/31/23 06:32
Vital Signs
Vital Signs
Temp Pulse Resp BP Pulse Ox
97.9 F 92 16 135/80 100
08/31/23 07:30 08/31/23 07:30 08/31/23 07:30 08/31/23 07:30 08/31/23 07:30
[2023-08-31 11:24] VITALS: BP 136/83; PULSE 88; O2SAT 100
[2023-08-31 12:06] LABS: Glucose - Point of Care 112 mg/dl (70-99)
[2023-08-31] MEDS: NOVOLOG FLEXPEN-HIGH RESISTANCE SC (12:17)
--- NOTE | 2023-08-31 13:16 | W.PN.URO.CBU ---
Today's Communication / Plan
-
TURP cancelled for medical clearance due to DVT
Resume rodrigues vs CIC
Assessment / Plan
-
63M with ROXY and apparent moderate volume urinary retention with hydronephrosis of transplant kidney during admission for diabetic foot wound
- TURP today cancelled due to DVT of indeterminate age. Hematology recommended obtaining past US imaging for comparison, as patient's IVC filter is likely no longer protective
- Okay to resume diet
- Given persistent elevated post void residual volumes, recommend indwelling rodrigues or CIC 3 times per day until able to proceed with surgery
- Timing of rescheduling procedure based on medical clearance and OR availability
PSA <1 - low risk for prostate cancer
Prostate volume <50cc on US this admission
Diagnosis
-
Date of Service: August 31, 2023
-
Patient Diagnosis:
BPH
Urinary retention
ROXY on CKD s/p kidney transplant
Post Op Day:
Subjective
-
DVT on LE US
Asymptomatic
Objective
-
Vital Signs
Temp Pulse Resp BP Pulse Ox
97.9 F 92 16 135/80 100
08/31/23 07:30 08/31/23 07:30 08/31/23 07:30 08/31/23 07:30 08/31/23 07:30
Intake and Output
08/30/23 08/31/23 09/01/23
06:59 06:59 06:59
Intake Total 597 / 597 600 / 600
Output Total 1025 / 1025 1800 / 1800
Balance -428 / -428 -1200 / -1200
Intake:
Oral fluids 597 / 597 600 / 600
Output:
Urine, Voided 625 / 625 1800 / 1800
Straight cath output 400 / 400
Other:
Number of approximated MODERATE 2
amounts of urine
Laboratory Results
08/31/23 06:32
08/31/23 06:32
Physical Exam
-
General - well developed, well nourished, no acute distress
Chest - clear bilaterally
Abdomen - soft, non-tender
Skin - warm & dry with no rash
Neuro - AOx3, no motor deficits
--- NOTE | 2023-08-31 14:49 | W.PN.NEPH.PH ---
Today's Communication / Plan
-
- OR today with urology
Assessment/Plan
-
ROXY
R heel pressure ulcer
Left side Royator cuff inj
Coronary Artery Disease with stents
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
Diabetes Mellitus, Type II no history of diabetic neuropathy or retinopathy
Chronic back pain requiring chronic opioid dependence
DJD -C3-C4, C5-C6
Urine drug screen positive for fentanyl
Anemia
Thrombocytopenia
Plan:
follow BMP, Cr down to 1.5 (bl 1.3)
patient was seen by urology who think he is a good candidate for prostate procedure, plan for surgical management with TURP and is scheduled for the OR today
follow CBC, if plt fall further may need to reduce MMF
-
-
Date of Service: August 31, 2023
CC / HPI / ROS
-
Chief Complaint:
ROXY
History of Present Illness:
ROXY/Cr up to 1.5
plt stable at 105
BP stable
d/c rodrigues due to patient preference for BPH. plan for TURP with uro
on immunosuppression for renal transplant
Review of Systems:
back and leg pain persists
no CP/SOB
Labs
-
Labs:
WBC 4.4 10^3/uL (4.8-10.8) L 08/31/23 06:32
RBC 3.29 10^6/uL (4.70-6.10) L 08/31/23 06:32
Hgb 9.7 g/dL (13.0-18.0) L 08/31/23 06:32
Hct 28.6 % (39.0-52.0) L 08/31/23 06:32
Plt Count 106 10^3/uL (130-400) L 08/31/23 06:32
Sodium 138 mmol/L (135-145) 08/31/23 06:32
Potassium 4.8 mmol/L (3.5-5.1) 08/31/23 06:32
Chloride 107 mmol/L (98-107) 08/31/23 06:32
Carbon Dioxide 24 mmol/L (22-30) 08/31/23 06:32
BUN 55 mg/dl (9-20) H 08/31/23 06:32
Creatinine 1.5 mg/dL (0.7-1.3) H 08/31/23 06:32
eGFR 52.64 08/31/23 06:32
Glucose 89 mg/dl (70-99) 08/31/23 06:32
Calcium 8.7 mg/dl (8.4-10.2) 08/31/23 06:32
Albumin 2.6 g/dl (3.5-5.0) L 08/29/23 06:49
Physical Exam
-
Vital Signs:
Vital Signs
Temp Pulse Resp BP Pulse Ox
97.9 F 92 16 135/80 100
08/31/23 07:30 08/31/23 07:30 08/31/23 07:30 08/31/23 07:30 08/31/23 07:30
Cardiovascular:: Regular rate and rhythm
Respiratory:: Bilateral: CTA
Lung Excursion:: Normal
Abdomen:: Nontender and Soft
Bowel Sounds:: Normal
Extremity Edema:: None: Bilateral:
Rodrigues Catheter: No
[2023-08-31] MEDS: DAKIN'S SOLUTION 0.125% 1/4 STRENGTH 10 ML TOPICAL (15:44)
[2023-08-31 16:00] VITALS: BP 135/80
--- NOTE | 2023-08-31 16:43 | CM ---
Received notification from resident that patient is medically cleared for discharge. Met with patient and he is agreeable to going to [facility] or [facility] (not [facility] any longer). Started auth yesterday to determine if patient's
secondary would cover any portion however still as of yet have not received a determination.
Called Susu in admissions who confirmed acceptance for either [facility] or [facility] and she stated that she will bring paperwork for patient to complete in the event that insurance doesn't cover in the am.
Plan: Case management will continue to follow and assist with discharge planning. Susu from admissions at [facility] will be out in the am to review paperwork with patient so that he can transfer to SNF tomorrow regardless of auth status.
[2023-08-31] MEDS: FLOMAX PO (20:26)
[2023-08-31 21:33] LABS: Glucose - Point of Care 180 mg/dl (70-99)
[2023-08-31] MEDS: LANTUS 0.140000000000000013 UNITS SC (21:55)
[2023-08-31] MEDS: DILAUDID 2 MG PO (22:01)
--- NOTE | 2023-08-31 22:30 | PTCARENOTE ---
Pt refusing flomax and stated 'I will be up peeing all night'. Pt educated on why he should be taking flomax. This RN bladder scanned pt for >891. Pt informed that per orders, a rodrigues could be placed or he can be straight cathed. Pt refused the
rodrigues and agreed to being straight cathed. 1000mls of clear yellow urine drained. Pt informed that if he does not leave with a rodrigues, he will possibly need to learn to cath himself 3 times a day. Pt stated 'I am not going to do that. I am just going
to pee normally'. Pt offered flomax again d/t difficulty voiding. Pt still refusing after retaining and education from this RN. Call prasad within reach and plan of care ongoing.
[2023-08-31 23:00] VITALS: BP 145/77
[2023-09-01] MEDS: TYLENOL PO ×2 (00:10→19:02)
[2023-09-01] MEDS: ROXICODONE 7.5 MG PO ×3 (00:39→22:42)
[2023-09-01 01:18] LABS: Transferrin 159 mg/dL (200-360)
[2023-09-01] MEDS: TYLENOL 650 MG PO ×2 (05:53→12:43)
[2023-09-01 06:00] VITALS: BMI 23.5
[2023-09-01 07:16] LABS: Hematocrit 28.5 % (39.0-52.0); Hemoglobin 10.1 g/dL (13.0-18.0); Mean Corp Hgb Conc. 35.4 g/dL (33.0-37.0); Mean Corpuscular Hgb 29.4 pg (27.0-31.0); Mean Corpuscular Volume 83.1 fL (80.0-94.0); Mean Platelet Volume 10.4 fL (7.4-10.4); Platelet Count 116 10^3/uL (130-400); Red Blood Cell Count 3.43 10^6/uL (4.70-6.10); Red Cell Dist. Width 14.7 % (11.5-14.5); White Blood Cell Count 4.7 10^3/uL (4.8-10.8)
[2023-09-01 07:30] VITALS: BP 109/72
[2023-09-01 07:38] LABS: Blood Urea Nitrogen 42 mg/dl (9-20); Calcium 8.8 mg/dl (8.4-10.2); Carbon Dioxide 25 mmol/L (22-30); Chloride 106 mmol/L (98-107); Estimated Creatinine Clearance 67 ml/min; Glucose 101 mg/dl (70-99); Sodium 137 mmol/L (135-145); eGFR > 60.00
[2023-09-01 08:04] LABS: Glucose - Point of Care 108 mg/dl (70-99)
[2023-09-01] MEDS: COLACE PO (08:58)
[2023-09-01] MEDS: MYFORTIC DELAYED REL. 180 MG PO ×2 (08:58→21:14)
[2023-09-01] MEDS: ASPIR LOW (ENTERIC COATED) 81 MG PO (08:58)
[2023-09-01] MEDS: MIRALAX PO (08:59)
[2023-09-01] MEDS: PROGRAF 3 MG PO ×2 (08:59→21:14)
[2023-09-01] MEDS: NOVOLOG FLEXPEN 8 UNITS SC ×3 (10:04→18:27)
--- NOTE | 2023-09-01 10:38 | W.PN.NEPH.PH ---
Today's Communication / Plan
-
follow BMP
Assessment/Plan
-
ROXY
R heel pressure ulcer
Left side Royator cuff inj
Coronary Artery Disease with stents
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
Diabetes Mellitus, Type II no history of diabetic neuropathy or retinopathy
Chronic back pain requiring chronic opioid dependence
DJD -C3-C4, C5-C6
Urine drug screen positive for fentanyl
Anemia
Thrombocytopenia
DVT
Plan:
follow BMP
continue tac/mmf
turp timing per urology
-
-
Date of Service: September 01, 2023
CC / HPI / ROS
-
Chief Complaint:
ROXY
History of Present Illness:
ROXY/Cr down to 1.2
plt stable at 116
BP stable
no rodrigues
on immunosuppression for renal transplant
Review of Systems:
back and leg pain persists
no CP/SOB
Labs
-
Labs:
WBC 4.7 10^3/uL (4.8-10.8) L 09/01/23 06:32
RBC 3.43 10^6/uL (4.70-6.10) L 09/01/23 06:32
Hgb 10.1 g/dL (13.0-18.0) L 09/01/23 06:32
Hct 28.5 % (39.0-52.0) L 09/01/23 06:32
Plt Count 116 10^3/uL (130-400) L 09/01/23 06:32
Sodium 137 mmol/L (135-145) 09/01/23 06:33
Potassium 5.0 mmol/L (3.5-5.1) 09/01/23 06:33
Chloride 106 mmol/L (98-107) 09/01/23 06:33
Carbon Dioxide 25 mmol/L (22-30) 09/01/23 06:33
BUN 42 mg/dl (9-20) H 09/01/23 06:33
Creatinine 1.2 mg/dL (0.7-1.3) 09/01/23 06:33
eGFR > 60.00 09/01/23 06:33
Glucose 101 mg/dl (70-99) H 09/01/23 06:33
Calcium 8.8 mg/dl (8.4-10.2) 09/01/23 06:33
Albumin 2.6 g/dl (3.5-5.0) L 08/29/23 06:49
Physical Exam
-
Vital Signs:
Vital Signs
Temp Pulse Resp BP Pulse Ox
98.0 F 96 16 109/72 99
09/01/23 07:30 09/01/23 07:30 09/01/23 07:30 09/01/23 07:30 09/01/23 07:30
Cardiovascular:: Regular rate and rhythm
Respiratory:: Bilateral: Coarse
Lung Excursion:: Normal
Abdomen:: Nontender and Soft
Bowel Sounds:: Normal
Extremity Edema:: None: Bilateral:
[2023-09-01] MEDS: DAKIN'S SOLUTION 0.125% 1/4 STRENGTH TOPICAL (11:23)
[2023-09-01 13:00] LABS: Glucose - Point of Care 168 mg/dl (70-99)
--- NOTE | 2023-09-01 13:45 | W.DCSUMMARY ---
Documented by User: Marian De La Cruz MD, Resident 09/01/23 20:45
Discharge Summary
Discharge Data
Date of Admission: 08/15/23
Date of Discharge: 09/01/23
-
Pending Results: No
Hospital Course
63-year-old male with history of liver and kidney transplant, and IVC filter, presented to the ED on 08/14 with right hip pain and a new rash. Patient in the ED vitals were stable, afebrile. Patient lost 20 pounds since his right ORIF in June
following right hip fracture, and has been unhoused for the past 2 months, living in his car. Patient also developed a blister on his right heel which ruptured with malodorous discharge. He was started on vancomycin and Zosyn which was changed to
cephalexin through 08/25/2023. X-ray showed no evidence of osteomyelitis. X-ray of right knee and right foot where unremarkable. His right hip surgical site is fully healed there is no swelling, warmth, dehiscence or drainage. Patient's rash and
leukocytosis improved with antibiotics. Labs showed pancytopenia, H&H stable. Blood cultures were negative. Patient remained afebrile throughout stay.
Wound culture of heel ulcer was positive for E. coli, MSSA, Streptococcus pyogens, MRSA negative. For right heel, daily gauze dressing and Krish to right heel where advised per podiatry, no weightbearing restrictions, no surgical debridement needed
at this time. Patient was also started on Lantus 15 units, short acting insulin 13 units, later titrated to Lantus 14 units and Novolog 8units AC + high resistance insulin sliding scale to maintain adequate blood glucose levels. Patient has a
difficult living situation and would benefit from acute care rehab. He is agreeable to long term facility.
He developed an ROXY, with some urinary retention alternating between spontaneous voiding and rodrigues/straight cath. Renal US of donor kidney - hydronephrosis + hydroureter, suggesting retention and reflux. With patient's wishes for surgery and
possible challenges with outpatient follow up, patient was scheduled for TURP procedure. Unfortunately DVT of undetermined age was found in his left lower extremity and surgery was canceled after patient declined anticoagulant therapy. Echo showed
normal ventricular systolic function, mild concentric left ventricular hypertrophy, and moderate aortic stenosis.
Discharge to SNF, will need physical therapy and wound care
On the day of discharge, patient's vitals and labs are stable.
Will need to follow up with urology for urinary retention workup and possible TURP procedure
Follow-up with cardiology
Follow-up with family physician Dr. Geneva Lantigua, within 2 weeks of discharge
Discharge Plan
-
Patient Disposition: Senior Care/SNF
Discharge Diagnosis/Procedures: Right hip pain with rash (resolved), right heel pressure ulcer present on admission, known heart murmur, liver/kidney transplant 2021, mild acute kidney injury, normocytic anemia, chronic thrombocytopenia, type 2
diabetes mellitus insulin requiring, coronary artery disease, severe protein calorie malnutrition
Condition: Fair
Diet: Diabetic, Carb Controlled
Activity: As tolerated
Driving Restrictions: As prior to admission
Bathing Restrictions: None
Wound Care: Wound Care Instructions
R heel-clean with 1/4 strength Dakin's solution, no sting barrier wipe to surrounding skin, adaptic, alginate, cover with silicone border foam and stockinet or ABD pad and Kerlix wrap, change daily and prn drainage.
R pressure relief shoe.
Soft heel relief boots as tolerated (i.e. TruVue lite boots); elevate heels off bed with pillows while boots off.
Pressure redistributing chair cushion (i.e. Air chair cushion).
Follow up with financial secretary.
Follow up at wound care center call for an appointment.
Urinary retention:
- Straight catheterization for PVR volume >400ml, Q12h
Follow up instructions:
- Follow up with PCP Dr. Genvea Lantigua within 2 weeks of discharge
- Strongly encouraged to follow up with Urology[facility]
- Follow-up with cardiology
Instructions: Urinary retention - Discharge instructions
Referrals:
Geneva Lantigua DO [Family Provider] - in less than 1 week
Prescriptions:
New
Dakin's Solution 0.125 % Solution
1 applic topical DAILY Qty: 0 0RF
cyclobenzaprine 10 mg Tablet
10 mg PO Q12H PRN (Reason: muscle spasm) Qty: 60 0RF
tamsulosin 0.4 mg Capsule
0.4 mg PO DAILY Qty: 30 0RF
Insulin Glargine Lantus [Lantus] 14 UNITS
Subcutaneous Insulin Syringe [Syringe-Insulin] 0 UNIT
As Directed mls/hr SC HS
Ordered By: Marian De La Cruz MD, Resident
Last Taken: 09/04/23 21:18 0.14 mls
oxycodone 5 mg Tablet
5 mg PO Q4HPRN PRN (Reason: moderate pain) Qty: 18 0RF
acetaminophen 325 mg Tablet
650 mg PO Q6H Qty: 60 0RF
(DME) catheter 16 Fr misc
See Rx Instructions .Route Qty: 30 0RF
Rx Instructions:
As directed, for PVR volume >400 Q12h
Continued
aspirin 81 mg Tablet,Delayed Release (Dr/Ec)
81 mg PO DAILY
tacrolimus 1 mg Capsule
3 mg PO Q12H@08,1999
Patient Comments:
08/15/2023, last filled on 12/23/2023 for 30-day supply.
insulin lispro 100 unit/mL insulin pen
0 sliding scale dose SC DIRECTED
Patient Comments:
08/15/2023, pt. uses this med. on a sliding scale but does not know what that sliding scale is; per pt., if his BS is around 270 he will inject 6 units.
mycophenolate sodium 180 mg Tablet,Delayed Release (Dr/Ec)
180 mg PO Q12H@08,1999
Patient Comments:
08/15/2023, last filled on 12/23/2023 for 30-day supply.
Discontinued
oxycodone 10 mg Tablet
10 mg PO BID PRN (Reason: severe pain)
Patient Comments:
08/15/2023, last filled on 07/24/2023 for 30 tablets per PDMP.
Discharge Date and Time
Print Language: LATVIAN

Documented by User: Lucas Collado MD 09/05/23 11:45
Discharge Summary
Discharge Data
Date of Admission: 08/15/23
Date of Discharge: 09/05/23
Discharge Plan
-
Patient Disposition: Senior Care/SNF
Discharge Diagnosis/Procedures: Right hip pain with rash (resolved), right heel pressure ulcer present on admission, known heart murmur, liver/kidney transplant 2021, mild acute kidney injury, normocytic anemia, chronic thrombocytopenia, type 2
diabetes mellitus insulin requiring, coronary artery disease, severe protein calorie malnutrition
Condition: Fair
Diet: Diabetic, Carb Controlled
Activity: As tolerated
Driving Restrictions: As prior to admission
Bathing Restrictions: None
Wound Care: Wound Care Instructions
R heel-clean with 1/4 strength Dakin's solution, no sting barrier wipe to surrounding skin, adaptic, alginate, cover with silicone border foam and stockinet or ABD pad and Kerlix wrap, change daily and prn drainage.
R DH pressure relief shoe.
Soft heel relief boots as tolerated (i.e. TruVue lite boots); elevate heels off bed with pillows while boots off.
Pressure redistributing chair cushion (i.e. Air chair cushion).
Follow up with financial secretary.
Follow up at wound care center call for an appointment.
Urinary retention:
- Straight catheterization for PVR volume >400ml, Q12h
Follow up instructions:
- Follow up with PCP Dr. Geneva Lantigua within 2 weeks of discharge
- Strongly encouraged to follow up with [facility]. [facility]
- Follow-up with cardiology
Instructions: Urinary retention - Discharge instructions
Referrals:
Geneva Lantigua DO [Family Provider] - in less than 1 week
Prescriptions:
New
Dakin's Solution 0.125 % Solution
1 applic topical DAILY Qty: 0 0RF
cyclobenzaprine 10 mg Tablet
10 mg PO Q12H PRN (Reason: muscle spasm) Qty: 60 0RF
tamsulosin 0.4 mg Capsule
0.4 mg PO DAILY Qty: 30 0RF
Insulin Glargine Lantus [Lantus] 14 UNITS
Subcutaneous Insulin Syringe [Syringe-Insulin] 0 UNIT
As Directed mls/hr SC HS
Ordered By: Marian De La Cruz MD, Resident
Last Taken: 09/04/23 21:18 0.14 mls
oxycodone 5 mg Tablet
5 mg PO Q4HPRN PRN (Reason: moderate pain) Qty: 18 0RF
acetaminophen 325 mg Tablet
650 mg PO Q6H Qty: 60 0RF
(DME) catheter 16 Fr misc
See Rx Instructions .Route Qty: 30 0RF
Rx Instructions:
As directed, for PVR volume >400 Q12h
Continued
aspirin 81 mg Tablet,Delayed Release (Dr/Ec)
81 mg PO DAILY
tacrolimus 1 mg Capsule
3 mg PO Q12H@
Patient Comments:
08/15/2023, last filled on 12/23/2023 for 30-day supply.
insulin lispro 100 unit/mL insulin pen
0 sliding scale dose SC DIRECTED
Patient Comments:
08/15/2023, pt. uses this med. on a sliding scale but does not know what that sliding scale is; per pt., if his BS is around 270 he will inject 6 units.
mycophenolate sodium 180 mg Tablet,Delayed Release (Dr/Ec)
180 mg PO Q12H@
Patient Comments:
08/15/2023, last filled on 12/23/2023 for 30-day supply.
Discontinued
oxycodone 10 mg Tablet
10 mg PO BID PRN (Reason: severe pain)
Patient Comments:
08/15/2023, last filled on 07/24/2023 for 30 tablets per PDMP.
Discharge Date and Time
Print Language: LATVIAN
--- NOTE | 2023-09-01 13:57 | W.PN.URO.CBU ---
Today's Communication / Plan
-
Continue rodrigues or CIC
Assessment / Plan
-
63M with ROXY and apparent moderate volume urinary retention with hydronephrosis of transplant kidney during admission for diabetic foot wound
- TURP cancelled due to DVT of indeterminate age. Hematology recommended obtaining past US imaging for comparison, as patient's IVC filter is likely no longer protective.
- Given persistent elevated post void residual volumes with catheterized volumes up to 1000cc, recommend indwelling rodrigues or CIC 4 times per day until able to proceed with surgery
- Patient very upset by having the procedure cancelled despite explanation of surgical risks with DVT of unknown acuity. At this time he states he will refuse rodrigues catheter and CIC. I explained the possible risks of this to his transplant kidney,
including failure of the transplant. He states 'I think this means none of you know what you're doing here' and indicated he will seek urologic care elsewhere. I restated my recommendation to continue catheterization until he establishes urology
follow up. I offered to see him in the outpatient setting if he changes his mind.
Will sign off - please call with any further questions
Diagnosis
-
Date of Service: September 01, 2023
-
Patient Diagnosis:
BPH
Urinary retention
ROXY on CKD s/p kidney transplant
Post Op Day:
Subjective
-
Straight cath for large volumes overnight
Objective
-
Vital Signs
Temp Pulse Resp BP Pulse Ox
98.0 F 96 16 109/72 99
09/01/23 07:30 09/01/23 07:30 09/01/23 07:30 09/01/23 07:30 09/01/23 07:30
Intake and Output
08/31/23 09/01/23 09/02/23
06:59 06:59 06:59
Intake Total 600 / 600 440 / 440
Output Total 1800 / 1800 3125 / 312
Balance -1200 / -1200 -2685 / -2685
Intake:
Oral fluids 600 / 600 440 / 440
Output:
Urine, Voided 1800 / 1800 1075 / 1075
Straight cath output 2049
Other:
Number of approximated SMALL 2
amounts of urine
Number of approximated MODERATE 2
amounts of urine
Number of immeasurable emeses? 1
Laboratory Results
09/01/23 06:32
09/01/23 06:33
Physical Exam
-
General - well developed, well nourished, no acute distress
Chest - clear
Abdomen - soft, non-tender
--- NOTE | 2023-09-01 14:51 | W.DS.TRANS ---
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
-
Discharge Instructions:
Discharge Diagnosis/Procedures Right hip pain with rash resolved, right heel
pressure ulcer present on admission, known heart
murmur, liver/kidney transplant 2021, mild
acute kidney injury, normocytic anemia, chronic
thrombocytopenia, type 2 diabetes mellitus
insulin requiring, coronary artery disease,
severe protein calorie malnutrition
Diet Diabetic, Carb Controlled
Activity As tolerated
Driving Restrictions As prior to admission
Bathing Restrictions None
Instructions: Urinary retention - Discharge instructions
Straight catheterization Q12h for urinary retention PVR >400ml
Please follow up with PCP Dr Geneva ROBBINS
Please follow up with cardiology
Please follow up with [facility], Dr. Phu Ann
Stand-Alone Forms:
Changes to Home Medications: Yes
Discharge Medications:
DC Medications w/original date entered in [employer]
aspirin 81 mg tablet,delayed release 81 mg PO DAILY Blood Clot Prevention/Tx 08/15/23
insulin lispro 100 unit/mL subcutaneous pen 0 sliding scale dose SC DIRECTED Diabetes 08/15/23
mycophenolate sodium 180 mg tablet,delayed release 180 mg PO Q12H@0800,1999 Kidney transplant 08/15/23
tacrolimus 1 mg capsule, immediate-release 3 mg PO Q12H@0800,1999 kidney transplant 08/15/23
sodium hypochlorite 0.125 % solution (Dakin's Solution) 1 applic topical DAILY #0 mL 08/21/23
Insulin Glargine Lantus [Lantus] 14 units As Directed mls/hr SC HS 09/01/23
acetaminophen 325 mg tablet 650 mg (2 x 325 mg) PO Q6H mild pain #60 tabs 09/01/23
catheter 16 Fr #30 ea 09/01/23
cyclobenzaprine 10 mg tablet 10 mg PO Q12H PRN muscle spasm #60 tabs 09/01/23
oxycodone 5 mg tablet 5 mg PO Q4HPRN PRN moderate pain #18 tabs 09/01/23
tamsulosin 0.4 mg capsule 0.4 mg PO DAILY For urinary retention. Take in the morning #30 caps 09/01/23
Home Medication Changes
tamsulosin 0.4 mg capsule 0.4 mg PO DAILY For urinary retention. Take in the morning #30 caps 09/01/23
catheter 16 Fr #30 ea 09/01/23
cyclobenzaprine 10 mg tablet 10 mg PO Q12H PRN muscle spasm #60 tabs 09/01/23
sodium hypochlorite 0.125 % solution (Dakin's Solution) 1 applic topical DAILY #0 mL 08/21/23
Insulin Glargine Lantus [Lantus] 14 units As Directed mls/hr SC HS 09/01/23
acetaminophen 325 mg tablet 650 mg (2 x 325 mg) PO Q6H mild pain #60 tabs 09/01/23
Pending Results: No
[2023-09-01 16:00] VITALS: BP 116/71
[2023-09-01 16:58] LABS: Glucose - Point of Care 127 mg/dl (70-99)
--- NOTE | 2023-09-01 17:01 | CM ---
Reviewed chart, patient medically cleared for discharge. Placed a call to [facility] and spoke with a woman named KARLEY who stated that she was unable to find clinical faxed previously but stated to fax all clinical to [phone] along with a
form from their website-[employer] [facility] Authorization Form.
Faxed all information to the number above. RN and attending updated as well as Admissions at [facility], awaiting hopeful authorization through patient's secondary.
Plan: Case management will continue to follow and assist with discharge planning. All clinical has been faxed to patient's secondary insurance.
[2023-09-01] MEDS: NOVOLOG FLEXPEN-HIGH RESISTANCE SC (18:26)
[2023-09-01] MEDS: ROXICODONE 5 MG PO (18:29)
--- NOTE | 2023-09-01 20:30 | PTCARENOTE ---
Discussed Q8 bladder scan and straight cath, pt refused both. Pt also refused flowmax, states he wants to discuss with MD about switching it to an am dose. will pass along to dayshift
[2023-09-01] MEDS: COLACE 100 MG PO (21:13)
[2023-09-01] MEDS: FLEXERIL 10 MG PO (21:14)
[2023-09-01] MEDS: FLOMAX PO (21:15)
[2023-09-01 21:28] LABS: Glucose - Point of Care 110 mg/dl (70-99)
--- NOTE | 2023-09-01 21:35 | W.PN.HOSP.TC ---
Addendum entered and electronically signed by Lucas Collado MD 09/01/23 22:29:
Attending Addendum-
I saw and evaluated the patient. I reviewed the resident�s note and agree with findings and plan as documented in the resident�s note. Patient having to be straight cathed. had pain last pm relieved with one dose dilaudid. Full 12 point ROS
reviewed and negative except as documented Exam: Vitals reviewed in chart GEN-NAD heart SM @ RUSB RRR lungs clear abd soft LE no edema - non palp bladder Plan:
#Right heel pressure ulcer (POA)
-Diabetic Foot wound--no need for surgical debridement--arterial US normal
-blood cultures negative, Wound cultures shows E. coli, Staph aureus, Strep pyogenes
-s/p IV Zosyn and vancomycin switched to keflex-completed course
-cont wound care
- appreciate podiatry input
# Kidney/liver transplant-2021--History of hepatitis C and liver cirrhosis--Continue tacrolimus and mycophenolate
- Tacrolimus level WNL
- patient follows with [facility]
- nephro on board- appreciate input
# Left LE DVT-
- left fem and pop veins
- unknown chronicity
- patient refusing AC states he has IVC
- heme input appreciated clearly stated to patient that IVC will not prevent PE- patient still refusing AC
- makes surgery high risk
- f/u as OP for TURP
- cancel TURP
# ROXY on CKD 3a - creatinine baseline 1.3
- resolved
- cont IVF-patient refused
- repeat BMP in am
# Hyperkalemia
- resolved
# Acute urinary retention due to BPH
- uro c/s appreciated
- rodrigues placed - on 08/25
- voiding trial underway 08/28
- requiring CIC
- refusing rodrigues
- cont flomax
- TURP 08/30- cancelled due to DVT and patient noncompliance
# Aortic Stenosis-
- ECHO- 08/29 Left ventricle is small in size. Normal left ventricular systolic function.
Mild concentric left ventricular hypertrophy. No regional wall motion
abnormalities are seen. LV ejection fraction is 65-70%
Mildly dilated right ventricle. Normal right ventricular systolic function.
Moderate aortic stenosis.
- continued surveillance with cards as OP
# Chronic Back Pain with Radiculopathy Chronic narcotic use and abuse
- fentanyl in tox screen
- has been asking for frequent IV Dilaudid per nursing
- oxy PRN dosing increased on 08/24-script written
- DC IV Dilaudid qhs
- patient states he takes medical marijuana outside the hospital
# H/O Right Hip fx
-appreciate ortho consult
-X-rays of the right hip demonstrate a healed right hip fracture.
- PT OT
# Normocytic anemia--H&H stable
# Chronic thrombocytopenia---Monitor may need to hold MMP if decreasing
# IDDM--Insulin sliding scale, lantus 14 novolog 8 q ac follow accuchecks closely
# CAD--Continue aspirin
# Severe protein calorie malnutrition
DVT prophylaxis- heparin
CODE STATUS -- FULL CODE
Dispo- DC to SNF - delayed due to placement issues hopeful DC in am - narc scripts written
Time spent coordinating care, review of plan of care with resident, review of records, med rec, consults, notes, labs, rads, d/w nursingand CM at great length� 55 mins
Original Note:
Today's Communication/Plan
-
Discharge planning
Strongly encourage use of straight catheter
Encourage Urology F/U
Assessment / Plan
Assessment / Plan
Right heel pressure ulcer
Diabetic Foot wound-- apprec podiatry--no need for surgical debridement--arterial US normal
-blood cultures negative, Wound cultures shows E. coli, Staph aureus, Strep pyogenes
- Wound care on board
- Completed Abx course (broad spectrum -> Cephalexin x 7 days)
--now agreeable to SNF - pending placement
Heart murmur
Chronic, known to pt
Hx of Kidney/liver transplant-
Transplant in 2021--History of hepatitis C and liver cirrhosis--
-Continue tacrolimus and mycophenolate
-Tacrolimus level is therapeutic
-patient follows with [facility] and states he has an upcoming appointment within next month
ROXY-
Creatinine back to baseline at 1.2
Renal US of donor kidney - hydronephrosis + hydroureter
-nephro on board
-ROXY cause unclear, urinary retention likely contributing, pt has history of BPH. Encourage straight cath.
- TURP canceled yesterday due to DVT found on lower extremity venous ultrasound. Patient refused anticoagulant therapy
-DC planning. Encourage outpatient urology follow-up
Lower Back pain
Right Hip Pain
Sciatica - description of pain traveling down lower back to groin/leg
-appreciate ortho consult
-X-rays of the right hip demonstrate a healed right hip fracture. Hardware is intact with no signs of loosening or failure.
-X-rays of the right knee demonstrate mild degenerative changes with medial and lateral compartment chondrocalcinosis.
- PT evaluation - Pt able to mobilize with supervision using rolling walker
- Oxycodone for pain control
- patient states he takes medical marijuana outside the hospital
Normocytic anemia
- Pancytopenia, on two immunosuppressants sp liver and kidney transplant
- hemoglobin stable
Muscle Spasms:
- likely Iron deficiency
- Cyclobenzaprine
Chronic thrombocytopenia---Monitor
IDDM--High resistance Insulin sliding scale, plus Glargine 14 units SC HS, Novolog 8 units SC AC.
CAD--Continue aspirin
Severe protein calorie malnutrition--affects wound healing
DVT prophylaxis- heparin
CODE STATUS -- FULL CODE
Anticipated Discharge: Within 24 hours
Subjective/Interval History
-
Date of Service: September 01, 2023
Some nausea at night, resolved.
Straight cath this AM for retention
Objective Data
-
Vital Signs:
Vital Signs
Temp Pulse Resp BP Pulse Ox
98.0 F 93 18 116/71 100
09/01/23 16:00 09/01/23 16:00 09/01/23 16:00 09/01/23 16:00 09/01/23 16:00
I&O
08/31/23 09/01/23 09/02/23
06:59 06:59 06:59
Intake Total 600 / 600 440 / 440 720 / 720
Output Total 1800 / 1800 3125 / 3125 325 / 325
Balance -1200 / -1200 -2685 / -2685 395 / 395
Review of Systems
-
History Source: Patient
Constitutional: Reports Fatigue
Respiratory: Reports No Symptoms; Denies Cough or Trouble Breathing
Cardiac: Reports No Symptoms; Denies Chest Pain or Palpitations
Abdomen/GI: Reports No Symptoms; Denies Abdominal Pain, Diarrhea or Constipated
Genitourinary: Reports Difficulty Voiding and Other (retention)
Musculoskeletal: Reports Joint Pain
Neuro: Reports No Symptoms; Denies Headache
Physical Exam
-
General: Comfortable
HEENT: Normocephalic, Atraumatic and Moist Mucous Membranes
Respiratory: Clear to Auscultation; Negative Wheezes, Rales, Rhonchi or Crackles
Cardiac: Regular Rhythm and S1/S2; Negative Murmur, Calf Tenderness or Chung's Sign
GI: Soft, Nontender and Nondistended; Negative Normal Bowel Sounds
Musculoskeletal: No Clubbing, No Cyanosis and No Edema
Skin: Warm, Dry and Ulcers (right heel)
Neuro: Awake, Alert and Oriented
Psych: Calm
[2023-09-01] MEDS: LANTUS 0.140000000000000013 UNITS SC (22:44)
[2023-09-01 23:00] VITALS: BP 138/87
[2023-09-02] MEDS: TYLENOL PO ×4 (00:35→18:22)
[2023-09-02 04:04] VITALS: BP 111/73
[2023-09-02] MEDS: ROXICODONE 5 MG PO ×2 (04:04→08:17)
[2023-09-02 06:00] VITALS: BMI 23.3
[2023-09-02 07:05] VITALS: BP 122/80
[2023-09-02 08:02] LABS: Glucose - Point of Care 99 mg/dl (70-99)
[2023-09-02] MEDS: ASPIR LOW (ENTERIC COATED) 81 MG PO (08:11)
[2023-09-02] MEDS: COLACE 100 MG PO ×2 (08:11→21:45)
[2023-09-02] MEDS: MIRALAX PO (08:12)
[2023-09-02] MEDS: PROGRAF 3 MG PO ×2 (08:17→21:46)
[2023-09-02] MEDS: MYFORTIC DELAYED REL. 180 MG PO ×2 (08:17→21:48)
--- NOTE | 2023-09-02 08:28 | W.PN.HOSP.TC ---
Today's Communication/Plan
-
Discharge to short-term rehab when bed available
Assessment / Plan
Assessment / Plan
Right heel pressure ulcer
Diabetic Foot wound-- apprec podiatry--no need for surgical debridement--arterial US normal
-blood cultures negative, Wound cultures shows E. coli, Staph aureus, Strep pyogenes
- Wound care on board
- Completed Abx course (broad spectrum -> Cephalexin x 7 days)
--now agreeable to SNF - pending placement
Heart murmur
Chronic, known to pt
Hx of Kidney/liver transplant-
Transplant in 2021--History of hepatitis C and liver cirrhosis--
-Continue tacrolimus and mycophenolate
-Tacrolimus level is therapeutic
-patient follows with [facility] and states he has an upcoming appointment within next month
ROXY-
Creatinine back to baseline at 1.2
Renal US of donor kidney - hydronephrosis + hydroureter
-nephro on board
-ROXY cause unclear, urinary retention likely contributing, pt has history of BPH. Patient refusing Mejia, continue intermittent straight cath
-TURP canceled yesterday due to DVT found on lower extremity venous ultrasound. Patient refused anticoagulant therapy
-DC planning. Encourage outpatient urology follow-up
Lower Back pain
Right Hip Pain
Sciatica - description of pain traveling down lower back to groin/leg
-appreciate ortho consult
-X-rays of the right hip demonstrate a healed right hip fracture. Hardware is intact with no signs of loosening or failure.
-X-rays of the right knee demonstrate mild degenerative changes with medial and lateral compartment chondrocalcinosis.
- PT evaluation - Pt able to mobilize with supervision using rolling walker
- Oxycodone for pain control
- patient states he takes medical marijuana outside the hospital
Normocytic anemia
- Pancytopenia, on two immunosuppressants sp liver and kidney transplant
- hemoglobin stable
Muscle Spasms:
- likely Iron deficiency
- Cyclobenzaprine
Chronic thrombocytopenia---Monitor
IDDM--High resistance Insulin sliding scale, plus Glargine 14 units SC HS, Novolog 8 units SC AC.
CAD--Continue aspirin
Severe protein calorie malnutrition--affects wound healing
DVT prophylaxis-subcu heparin
CODE STATUS -- FULL CODE
Total time spent to see the patient on the floor, examine the patient, review data and lab results, discuss treatment plan with patient, nursing staff around 35 minutes.
Physical Exam
General: No acute distress
HEENT: Normocephalic, Atraumatic, EOMI, MMM
Respiratory: Clear to Auscultation bilaterally
Cardiac: Normal S1/S2, Regular Rate and Rhythm
GI: Soft, Nontender, Nondistended, Normal Bowel Sounds
Extremities: No Clubbing, Cyanosis, or Edema
Neuro: Nonfocal/Grossly Intact
Psych: Calm, Cooperative
Derm: No Visible lesions
Anticipated Discharge: Within 24 hours
Subjective/Interval History
-
Date of Service: September 02, 2023
Patient complains of pain. He states the pain is in his back and left knee from sciatica. No fever, no vomiting.
Objective Data
-
Labs:
Laboratory Results
09/02/23
07:12
Sodium Pending
Potassium Pending
Chloride Pending
Carbon Dioxide Pending
BUN Pending
Creatinine Pending
Glucose Pending
Calcium Pending
Vital Signs:
Vital Signs
Temp Pulse Resp BP Pulse Ox
97.9 F 93 16 122/80 99
09/02/23 07:05 09/02/23 07:05 09/02/23 07:05 09/02/23 07:05 09/02/23 07:05
I&O
09/01/23 09/02/23 09/03/23
06:59 06:59 06:59
Intake Total 440 / 440 1045 / 1045
Output Total 3125 / 3125 325 / 325
Balance -2685 / -2685 720 / 720
[2023-09-02 08:35] LABS: Blood Urea Nitrogen 47 mg/dl (9-20); Calcium 8.4 mg/dl (8.4-10.2); Carbon Dioxide 24 mmol/L (22-30); Chloride 109 mmol/L (98-107); Estimated Creatinine Clearance 53 ml/min; Glucose 85 mg/dl (70-99); Potassium 5.4 mmol/L (3.5-5.1); Sodium 137 mmol/L (135-145); eGFR 52.64
[2023-09-02] MEDS: DAKIN'S SOLUTION 0.125% 1/4 STRENGTH 473 ML TOPICAL (10:01)
[2023-09-02] MEDS: NOVOLOG FLEXPEN-HIGH RESISTANCE 1 UNITS SC ×3 (10:01→18:26)
[2023-09-02] MEDS: NOVOLOG FLEXPEN 8 UNITS SC ×3 (10:01→18:26)
--- NOTE | 2023-09-02 11:07 | W.PN.NEPH.PH ---
Today's Communication / Plan
-
follow BMP
Assessment/Plan
-
ROXY
R heel pressure ulcer
Left side Royator cuff inj
Coronary Artery Disease with stents
Left Kidney/Liver Transplant in 2021 for Cirrhosis secondary to Hepatitis C-at [facility] February 26, 2022, b/l 1.3
Diabetes Mellitus, Type II no history of diabetic neuropathy or retinopathy
Chronic back pain requiring chronic opioid dependence
DJD -C3-C4, C5-C6
Urine drug screen positive for fentanyl
Anemia
Thrombocytopenia
DVT
Plan:
follow BMP
continue tac/mmf
turp timing per urology
intermittent straight cath
-
-
Date of Service: September 02, 2023
CC / HPI / ROS
-
Chief Complaint:
ROXY
History of Present Illness:
ROXY/Cr up to 1.5
K up to 5.4
plt stable
BP stable
no rodrigues, but straight cath for 800+ this morning
on immunosuppression for renal transplant
Review of Systems:
no CP/SOB
Labs
-
Labs:
WBC 4.7 10^3/uL (4.8-10.8) L 09/01/23 06:32
RBC 3.43 10^6/uL (4.70-6.10) L 09/01/23 06:32
Hgb 10.1 g/dL (13.0-18.0) L 09/01/23 06:32
Hct 28.5 % (39.0-52.0) L 09/01/23 06:32
Plt Count 116 10^3/uL (130-400) L 09/01/23 06:32
Sodium 137 mmol/L (135-145) 09/02/23 07:12
Potassium 5.4 mmol/L (3.5-5.1) H 09/02/23 07:12
Chloride 109 mmol/L (98-107) H 09/02/23 07:12
Carbon Dioxide 24 mmol/L (22-30) 09/02/23 07:12
BUN 47 mg/dl (9-20) H 09/02/23 07:12
Creatinine 1.5 mg/dL (0.7-1.3) H 09/02/23 07:12
eGFR 52.64 09/02/23 07:12
Glucose 85 mg/dl (70-99) 09/02/23 07:12
Calcium 8.4 mg/dl (8.4-10.2) 09/02/23 07:12
Albumin 2.6 g/dl (3.5-5.0) L 08/29/23 06:49
Physical Exam
-
Vital Signs:
Vital Signs
Temp Pulse Resp BP Pulse Ox
97.9 F 93 16 122/80 99
09/02/23 07:05 09/02/23 07:05 09/02/23 07:05 09/02/23 07:05 09/02/23 07:05
Cardiovascular:: Regular rate and rhythm
Respiratory:: Bilateral: CTA
Lung Excursion:: Normal
Abdomen:: Nontender and Soft
Bowel Sounds:: Normal
Extremity Edema:: None: Bilateral:
[2023-09-02 12:12] LABS: Glucose - Point of Care 104 mg/dl (70-99)
[2023-09-02] MEDS: DILAUDID 0.5 MG IV ×2 (12:57→21:44)
[2023-09-02 15:00] VITALS: BP 145/82
[2023-09-02] MEDS: ROXICODONE 7.5 MG PO ×2 (16:04→23:55)
[2023-09-02 17:24] LABS: Glucose - Point of Care 75 mg/dl (70-99)
--- NOTE | 2023-09-02 18:06 | PTCARENOTE ---
Pt cooperative w/ care today. Agreeable to take flomax tonight. Still having difficulty voiding - straight cath once this morning for 1000mL urine.
[2023-09-02 21:03] LABS: Glucose - Point of Care 70 mg/dl (70-99)
[2023-09-02 21:20] LABS: Glucose - Point of Care 71 mg/dl (70-99)
[2023-09-02] MEDS: FLOMAX 0.400000000000000022 MG PO (21:45)
[2023-09-02 21:54] LABS: Glucose - Point of Care 89 mg/dl (70-99)
[2023-09-02] MEDS: LANTUS SC (22:12)
[2023-09-02 23:35] VITALS: BP 128/68
[2023-09-03] LABS: Glucose - Point of Care 201 mg/dl (70-99)
[2023-09-03] MEDS: LANTUS 0.140000000000000013 UNITS SC ×2 (00:05→21:16)
[2023-09-03] MEDS: TYLENOL PO ×5 (00:05→23:06)
[2023-09-03] MEDS: DILAUDID 0.5 MG IV ×4 (02:12→22:46)
--- NOTE | 2023-09-03 05:58 | PTCARENOTE ---
Patient rang for pain and discomfort to abdomen/pelvis. Bladder scan earlier in shift at 2200pm showed 507mls, straight cathed for 500mls. Patient agreeable to bladder scan early at 0450 -- 615mls scanned, no urine output at this time. Straight
cathed for 800mls urine. Patient with relief of pain and pressure. Currently patient has orders for bladder scan/straight cath every 8 hours -- appears that patient may benefit from more frequent scans/straight caths -- will discuss with dayshift
RN. Patient is very tearful at this time, patient stating 'I wish they would just take this kidney out. I got a new kidney, and now I am going to from it.' Offered patient support, call prasad within reach, will monitor.
[2023-09-03 06:00] VITALS: BMI 23.2
[2023-09-03 06:12] LABS: Hemoglobin 9.5 g/dL (13.0-18.0); Mean Corp Hgb Conc. 33.9 g/dL (33.0-37.0); Mean Corpuscular Hgb 29.5 pg (27.0-31.0); Mean Platelet Volume 9.6 fL (7.4-10.4); Platelet Count 107 10^3/uL (130-400); Red Blood Cell Count 3.22 10^6/uL (4.70-6.10); Red Cell Dist. Width 14.9 % (11.5-14.5); White Blood Cell Count 4.8 10^3/uL (4.8-10.8)
[2023-09-03 06:30] LABS: Blood Urea Nitrogen 49 mg/dl (9-20); Calcium 8.3 mg/dl (8.4-10.2); Carbon Dioxide 25 mmol/L (22-30); Chloride 107 mmol/L (98-107); Estimated Creatinine Clearance 50 ml/min; Glucose 114 mg/dl (70-99); Potassium 5.7 mmol/L (3.5-5.1); Sodium 137 mmol/L (135-145); eGFR 48.72
[2023-09-03 07:05] VITALS: BP 153/79
--- NOTE | 2023-09-03 07:35 | W.PN.HOSP.TC ---
Today's Communication/Plan
-
Discharge to short-term rehab when bed available
Assessment / Plan
Assessment / Plan
Right heel pressure ulcer
Diabetic Foot wound-- apprec podiatry--no need for surgical debridement--arterial US normal
-blood cultures negative, Wound cultures shows E. coli, Staph aureus, Strep pyogenes
- Wound care on board
- Completed Abx course (broad spectrum -> Cephalexin x 7 days)
--now agreeable to SNF - pending placement
Heart murmur
Chronic, known to pt
Hx of Kidney/liver transplant-
Transplant in 2021--History of hepatitis C and liver cirrhosis--
-Continue tacrolimus and mycophenolate
-Tacrolimus level is therapeutic
-patient follows with [facility] and states he has an upcoming appointment within next month
ROXY-
Creatinine back to baseline at 1.2
Renal US of donor kidney - hydronephrosis + hydroureter
-nephro on board
-ROXY cause unclear, urinary retention likely contributing, pt has history of BPH. Patient refusing Mejia, continue intermittent straight cath
-TURP canceled due to DVT found on lower extremity venous ultrasound. Patient refused anticoagulant therapy
-DC planning. Encourage outpatient urology follow-up
Lower Back pain
Right Hip Pain
Sciatica - description of pain traveling down lower back to groin/leg
-appreciate ortho consult
-X-rays of the right hip demonstrate a healed right hip fracture. Hardware is intact with no signs of loosening or failure.
-X-rays of the right knee demonstrate mild degenerative changes with medial and lateral compartment chondrocalcinosis.
- PT evaluation - Pt able to mobilize with supervision using rolling walker
- Oxycodone for pain control
- patient states he takes medical marijuana outside the hospital
Normocytic anemia
- Pancytopenia, on two immunosuppressants sp liver and kidney transplant
- hemoglobin stable
Muscle Spasms:
- likely Iron deficiency
- Cyclobenzaprine
Chronic thrombocytopenia---Monitor
IDDM--High resistance Insulin sliding scale, plus Glargine 14 units SC HS, Novolog 8 units SC AC.
CAD--Continue aspirin
Severe protein calorie malnutrition--affects wound healing
DVT prophylaxis-subcu heparin
CODE STATUS -- FULL CODE
Total time spent to see the patient on the floor, examine the patient, review data and lab results, discuss treatment plan with patient, nursing staff around 35 minutes.
Physical Exam
General: No acute distress
HEENT: Normocephalic, Atraumatic, EOMI, MMM
Respiratory: Clear to Auscultation bilaterally
Cardiac: Normal S1/S2, Regular Rate and Rhythm
GI: Soft, Nontender, Nondistended, Normal Bowel Sounds
Extremities: No Clubbing, Cyanosis, or Edema
Neuro: Nonfocal/Grossly Intact
Psych: Calm, Cooperative
Derm: No Visible lesions
Anticipated Discharge: Within 24 hours
Subjective/Interval History
-
Date of Service: September 03, 2023
Patient continues to complain of lower back pain radiating to his down leg. No fever, no vomiting.
Objective Data
-
Labs:
Laboratory Results
09/03/23
05:57
WBC 4.8
Hgb 9.5 L
Hct 28.0 L
Plt Count 107 L
Sodium 137
Potassium 5.7 H
Chloride 107
Carbon Dioxide 25
BUN 49 H
Creatinine 1.6 H
Glucose 114 H
Calcium 8.3 L
Vital Signs:
Vital Signs
Temp Pulse Resp BP Pulse Ox
98.3 F 90 17 128/68 96
09/02/23 23:35 09/02/23 23:35 09/02/23 23:35 09/02/23 23:35 09/02/23 23:35
I&O
09/02/23 09/03/23 09/04/23
06:59 06:59 06:59
Intake Total 1045 / 1045 1220 / 1220
Output Total 325 / 325 2350 / 2350
Balance 720 / 720 -1130 / -1130
[2023-09-03 07:49] LABS: Glucose - Point of Care 106 mg/dl (70-99)
[2023-09-03] MEDS: NOVOLOG FLEXPEN-HIGH RESISTANCE SC ×3 (09:27→18:30)
[2023-09-03] MEDS: PROGRAF 3 MG PO ×2 (09:31→21:15)
[2023-09-03] MEDS: MYFORTIC DELAYED REL. 180 MG PO ×2 (09:32→21:15)
[2023-09-03] MEDS: COLACE 100 MG PO ×2 (09:33→21:16)
[2023-09-03] MEDS: MIRALAX PO (09:33)
[2023-09-03] MEDS: ASPIR LOW (ENTERIC COATED) 81 MG PO (09:33)
[2023-09-03] MEDS: NOVOLOG FLEXPEN 8 UNITS SC ×3 (09:34→18:37)
[2023-09-03] MEDS: DAKIN'S SOLUTION 0.125% 1/4 STRENGTH 10 ML TOPICAL (09:35)
--- NOTE | 2023-09-03 11:53 | W.PN.NEPH.PH ---
Today's Communication / Plan
-
lokelma
Assessment/Plan
-
ROXY
R heel pressure ulcer
Left side Royator cuff inj
Coronary Artery Disease with stents
Left Kidney/Liver Transplant in 2021 for Cirrhosis secondary to Hepatitis C-at [facility] February 26, 2022, b/l 1.3
Diabetes Mellitus, Type II no history of diabetic neuropathy or retinopathy
Chronic back pain requiring chronic opioid dependence
DJD -C3-C4, C5-C6
Urine drug screen positive for fentanyl
Anemia
Thrombocytopenia
DVT
Plan:
follow BMP
continue tac/mmf
turp timing per urology
intermittent straight cath
loklema today, then MWF
-
-
Date of Service: September 03, 2023
CC / HPI / ROS
-
Chief Complaint:
ROXY
History of Present Illness:
ROXY/Cr up to 1.6
K up to 5.7
plt stable
BP stable
no rodrigues, but straight cath intermittently still
on immunosuppression for renal transplant
Review of Systems:
no CP/SOB
Labs
-
Labs:
WBC 4.8 10^3/uL (4.8-10.8) 09/03/23 05:57
RBC 3.22 10^6/uL (4.70-6.10) L 09/03/23 05:57
Hgb 9.5 g/dL (13.0-18.0) L 09/03/23 05:57
Hct 28.0 % (39.0-52.0) L 09/03/23 05:57
Plt Count 107 10^3/uL (130-400) L 09/03/23 05:57
Sodium 137 mmol/L (135-145) 09/03/23 05:57
Potassium 5.7 mmol/L (3.5-5.1) H 09/03/23 05:57
Chloride 107 mmol/L (98-107) 09/03/23 05:57
Carbon Dioxide 25 mmol/L (22-30) 09/03/23 05:57
BUN 49 mg/dl (9-20) H 09/03/23 05:57
Creatinine 1.6 mg/dL (0.7-1.3) H 09/03/23 05:57
eGFR 48.72 09/03/23 05:57
Glucose 114 mg/dl (70-99) H 09/03/23 05:57
Calcium 8.3 mg/dl (8.4-10.2) L 09/03/23 05:57
Albumin 2.6 g/dl (3.5-5.0) L 08/29/23 06:49
Physical Exam
-
Vital Signs:
Vital Signs
Temp Pulse Resp BP Pulse Ox
98.3 F 95 16 153/79 98
09/03/23 07:05 09/03/23 07:05 09/03/23 07:05 09/03/23 07:05 09/03/23 07:05
Cardiovascular:: Regular rate and rhythm
Respiratory:: Bilateral: Coarse
Lung Excursion:: Normal
Abdomen:: Nontender and Soft
Bowel Sounds:: Normal
Extremity Edema:: None: Bilateral:
[2023-09-03] MEDS: LOKELMA 10 GRAM PO (12:58)
[2023-09-03] MEDS: ROXICODONE 7.5 MG PO ×2 (13:04→21:15)
[2023-09-03 14:16] LABS: Glucose - Point of Care 234 mg/dl (70-99)
[2023-09-03 15:01] VITALS: BP 101/57
[2023-09-03 17:10] LABS: Glucose - Point of Care 120 mg/dl (70-99)
[2023-09-03 21:14] LABS: Glucose - Point of Care 100 mg/dl (70-99)
[2023-09-03] MEDS: FLOMAX 0.400000000000000022 MG PO (21:16)
[2023-09-03] MEDS: FLUSH (NSS) 2 FLUSH IV (22:47)
[2023-09-03 23:00] VITALS: BP 120/62
[2023-09-04] MEDS: ROXICODONE 5 MG PO (02:12)
[2023-09-04 03:09] LABS: Glucose - Point of Care 108 mg/dl (70-99)
[2023-09-04] MEDS: DILAUDID 0.5 MG IV ×2 (03:37→09:20)
[2023-09-04] MEDS: FLUSH (NSS) 2 FLUSH IV ×2 (03:38→09:18)
[2023-09-04 06:00] VITALS: BMI 23.3
[2023-09-04] MEDS: TYLENOL PO ×4 (06:56→23:26)
[2023-09-04 07:00] VITALS: BP 108/70
[2023-09-04 08:17] LABS: Blood Urea Nitrogen 52 mg/dl (9-20); Calcium 8.5 mg/dl (8.4-10.2); Carbon Dioxide 24 mmol/L (22-30); Chloride 106 mmol/L (98-107); Estimated Creatinine Clearance 57 ml/min; Glucose 101 mg/dl (70-99); Potassium 5.3 mmol/L (3.5-5.1); Sodium 135 mmol/L (135-145); eGFR 57.18
[2023-09-04 08:29] LABS: Glucose - Point of Care 107 mg/dl (70-99)
[2023-09-04] MEDS: NOVOLOG FLEXPEN-HIGH RESISTANCE SC ×2 (08:29→12:34)
[2023-09-04] MEDS: ROXICODONE 7.5 MG PO ×3 (08:37→20:48)
[2023-09-04] MEDS: NOVOLOG FLEXPEN 8 UNITS SC ×3 (08:54→17:54)
[2023-09-04] MEDS: MIRALAX PO (08:55)
[2023-09-04] MEDS: COLACE 100 MG PO ×2 (08:55→20:47)
[2023-09-04] MEDS: PROGRAF 3 MG PO ×2 (08:55→20:47)
[2023-09-04] MEDS: MYFORTIC DELAYED REL. 180 MG PO ×2 (08:55→20:47)
[2023-09-04] MEDS: ASPIR LOW (ENTERIC COATED) 81 MG PO (08:56)
[2023-09-04] MEDS: DAKIN'S SOLUTION 0.125% 1/4 STRENGTH TOPICAL (09:54)
--- NOTE | 2023-09-04 10:42 | W.PN.HOSP.TC ---
Today's Communication/Plan
-
Pt refusing SNF today, states that he 'feels his bladder is going to burst' and cannot go to SNF in this state.
He is asking for second Uro opinion, I have reached out to Dr Ann, who has seen him recently.
Assessment / Plan
Assessment / Plan
A/P:
# Right heel pressure ulcer
# Diabetic Foot wound
apprec podiatry, no need for surgical debridement, arterial US normal
blood cultures negative, Wound cultures shows E. coli, Staph aureus, Strep pyogenes
Completed Abx course (broad spectrum -> Cephalexin x 7 days)
Wound care on board
Pt now agreeable to SNF - pending placement
# Heart murmur, chronic, known to pt
echo noted Moderate aortic stenosis.
# Hx of Kidney/liver transplant in 2021
# History of hepatitis C and liver cirrhosis
Continue tacrolimus and mycophenolate
Tacrolimus level is therapeutic
patient follows with [facility] and states he has an upcoming appointment within next month
# ROXY, resolved
urinary retention likely contributing, pt has BPH. Patient refusing Mejia, continue intermittent straight cath
Creatinine at 1.4 today, baseline at 1.2
Renal US of donor kidney: hydronephrosis + hydroureter
nephro on board
TURP canceled due to DVT found on lower extremity venous ultrasound. Patient refused anticoagulant therapy
Encourage outpatient urology follow-up
# Remote lower extremity thrombus no clinical symptoms to suggest acuity
# Remote IVC, little protective effect against pulmonary embolus
Patient is adamantly refusing outpatient anticoagulation despite the knowledge that the IVC filter is likely no longer protective against pulmonary embolus
Heme on board
# Lower Back pain
# Right Hip Pain
# Sciatica - description of pain traveling down lower back to groin/leg
appreciate ortho consult
X-rays of the right hip demonstrate a healed right hip fracture. Hardware is intact with no signs of loosening or failure.
X-rays of the right knee demonstrate mild degenerative changes with medial and lateral compartment chondrocalcinosis.
PT evaluation - Pt able to mobilize with supervision using rolling walker
Oxycodone for pain control
patient states he takes medical marijuana outside the hospital
# Normocytic anemia
# Pancytopenia, on two immunosuppressants s/p liver and kidney transplant
hemoglobin stable
# Muscle Spasms:
likely Iron deficiency
Cyclobenzaprine
# IDDM
Cont Glargine 14 units SC HS, Novolog 8 units SC AC.
# CAD
Continue aspirin
# Severe protein calorie malnutrition
BMI 23.3
DVT prophylaxis: subcu heparin
CODE STATUS: FULL CODE
total time spent 51 min
Anticipated Discharge: 24 - 48 hours
Subjective/Interval History
-
Date of Service: September 04, 2023
Objective Data
-
Labs:
Laboratory Results
09/04/23
07:26
Sodium 135
Potassium 5.3 H
Chloride 106
Carbon Dioxide 24
BUN 52 H
Creatinine 1.4 H
Glucose 101 H
Calcium 8.5
Vital Signs:
Vital Signs
Temp Pulse Resp BP Pulse Ox
36.5 C 97 16 108/70 99
09/04/23 07:00 09/04/23 07:00 09/04/23 07:00 09/04/23 07:00 09/04/23 07:00
I&O
09/03/23 09/04/23 09/05/23
06:59 06:59 06:59
Intake Total 1220 / 1220 1100 / 1100
Output Total 2350 / 2350 1535 / 1535
Balance -1130 / -1130 -435 / -435
Review of Systems
-
Genitourinary: Reports Other (urine retension)
Physical Exam
-
General: Well Developed, Well Nourished, Comfortable and Conversant
HEENT: Normocephalic, Atraumatic and Moist Mucous Membranes
Respiratory: Clear to Auscultation and Non Labored Respirations; Negative Accessory Resp Muscle Use
Cardiac: Regular Rhythm, S1/S2 and Murmur
GI: Soft, Nontender and Nondistended; Negative Normal Bowel Sounds
Musculoskeletal: No Clubbing, No Cyanosis and No Edema
Skin: Warm, Dry and Ulcers (right heel)
Neuro: Awake and Alert
Psych: Calm and Intact Judgement/Insight
Data Reviewed
-
Ultrasound: Report Reviewed by me
Labs: Labs Reviewed by me
[2023-09-04] MEDS: LOKELMA 10 GRAM PO (10:50)
--- NOTE | 2023-09-04 11:19 | W.PN.NEPH.PH ---
Today's Communication / Plan
-
follow BMP
Assessment/Plan
-
ROXY
R heel pressure ulcer
Left side Royator cuff inj
Coronary Artery Disease with stents
Left Kidney/Liver Transplant in 2021 for Cirrhosis secondary to Hepatitis C-at [facility] February 26, 2022, b/l 1.3
Diabetes Mellitus, Type II no history of diabetic neuropathy or retinopathy
Chronic back pain requiring chronic opioid dependence
DJD -C3-C4, C5-C6
Urine drug screen positive for fentanyl
Anemia
Thrombocytopenia
DVT
Plan:
follow BMP
continue tac/mmf
turp timing per urology
intermittent straight cath
loklema MWF
-
-
Date of Service: September 04, 2023
CC / HPI / ROS
-
Chief Complaint:
ROXY
History of Present Illness:
ROXY/Cr down to 1.4
K down to 5.3 with lokelma
plt stable
BP stable
no rodrigues, but straight cath intermittently still
on immunosuppression for renal transplant
Review of Systems:
no CP/SOB
bladder pain
Labs
-
Labs:
WBC 4.8 10^3/uL (4.8-10.8) 09/03/23 05:57
RBC 3.22 10^6/uL (4.70-6.10) L 09/03/23 05:57
Hgb 9.5 g/dL (13.0-18.0) L 09/03/23 05:57
Hct 28.0 % (39.0-52.0) L 09/03/23 05:57
Plt Count 107 10^3/uL (130-400) L 09/03/23 05:57
Sodium 135 mmol/L (135-145) 09/04/23 07:26
Potassium 5.3 mmol/L (3.5-5.1) H 09/04/23 07:26
Chloride 106 mmol/L (98-107) 09/04/23 07:26
Carbon Dioxide 24 mmol/L (22-30) 09/04/23 07:26
BUN 52 mg/dl (9-20) H 09/04/23 07:26
Creatinine 1.4 mg/dL (0.7-1.3) H 09/04/23 07:26
eGFR 57.18 09/04/23 07:26
Glucose 101 mg/dl (70-99) H 09/04/23 07:26
Calcium 8.5 mg/dl (8.4-10.2) 09/04/23 07:26
Albumin 2.6 g/dl (3.5-5.0) L 08/29/23 06:49
Physical Exam
-
Vital Signs:
Vital Signs
Temp Pulse Resp BP Pulse Ox
97.7 F 97 16 108/70 99
09/04/23 07:00 09/04/23 07:00 09/04/23 07:00 09/04/23 07:00 09/04/23 07:00
Cardiovascular:: Regular rate and rhythm
Respiratory:: Bilateral: Coarse
Lung Excursion:: Normal
Abdomen:: Nontender and Soft
Bowel Sounds:: Normal
Extremity Edema:: None: Bilateral:
[2023-09-04 12:32] LABS: Glucose - Point of Care 130 mg/dl (70-99)
[2023-09-04 15:00] VITALS: BP 94/62
[2023-09-04 17:14] VITALS: BP 116/74
[2023-09-04 17:15] LABS: Glucose - Point of Care 94 mg/dl (70-99)
[2023-09-04] MEDS: NOVOLOG FLEXPEN-HIGH RESISTANCE 1 UNITS SC (17:54)
[2023-09-04] MEDS: FLOMAX 0.400000000000000022 MG PO (20:47)
[2023-09-04] MEDS: LANTUS 0.140000000000000013 UNITS SC (21:18)
[2023-09-04 21:19] LABS: Glucose - Point of Care 116 mg/dl (70-99)
[2023-09-04] MEDS: FLEXERIL 10 MG PO (22:58)
[2023-09-04 23:00] VITALS: BP 124/74
[2023-09-05] MEDS: ROXICODONE 7.5 MG PO ×4 (02:47→21:20)
[2023-09-05] MEDS: TYLENOL PO ×4 (05:06→23:10)
[2023-09-05 06:56] LABS: Hematocrit 26.1 % (39.0-52.0); Hemoglobin 9.3 g/dL (13.0-18.0); Mean Corp Hgb Conc. 35.6 g/dL (33.0-37.0); Mean Corpuscular Hgb 29.7 pg (27.0-31.0); Mean Corpuscular Volume 83.4 fL (80.0-94.0); Mean Platelet Volume 10.1 fL (7.4-10.4); Platelet Count 103 10^3/uL (130-400); Red Blood Cell Count 3.13 10^6/uL (4.70-6.10); Red Cell Dist. Width 14.9 % (11.5-14.5); White Blood Cell Count 5.3 10^3/uL (4.8-10.8)
[2023-09-05 07:00] VITALS: BP 106/69
[2023-09-05 07:39] LABS: Blood Urea Nitrogen 52 mg/dl (9-20); Calcium 8.4 mg/dl (8.4-10.2); Carbon Dioxide 25 mmol/L (22-30); Chloride 107 mmol/L (98-107); Estimated Creatinine Clearance 53 ml/min; Glucose 56 mg/dl (70-99); Magnesium 2.5 mg/dl (1.6-2.3); Sodium 136 mmol/L (135-145); eGFR 52.64
[2023-09-05 08:29] LABS: Glucose - Point of Care 68 mg/dl (70-99)
[2023-09-05] MEDS: NOVOLOG FLEXPEN-HIGH RESISTANCE SC (08:30)
[2023-09-05 08:56] LABS: Glucose - Point of Care 87 mg/dl (70-99)
[2023-09-05] MEDS: PROGRAF 3 MG PO ×2 (09:09→21:00)
[2023-09-05] MEDS: MYFORTIC DELAYED REL. 180 MG PO ×2 (09:09→21:00)
[2023-09-05] MEDS: COLACE 100 MG PO ×2 (09:09→21:00)
[2023-09-05] MEDS: MIRALAX PO (09:10)
[2023-09-05] MEDS: DAKIN'S SOLUTION 0.125% 1/4 STRENGTH 10 ML TOPICAL (09:10)
[2023-09-05] MEDS: ASPIR LOW (ENTERIC COATED) 81 MG PO (09:10)
--- NOTE | 2023-09-05 09:52 | W.PN.HOSP.TC ---
Today's Communication/Plan
-
see A/P
Assessment / Plan
Assessment / Plan
A/P:
# Right heel pressure ulcer
# Diabetic Foot wound
arterial US normal
apprec podiatry, no need for surgical debridement
blood cultures negative, Wound cultures shows E. coli, Staph aureus, Strep pyogenes
Completed Abx course (broad spectrum -> Cephalexin x 7 days)
Wound care on board
# Heart murmur, chronic, known to pt
echo noted Moderate aortic stenosis.
# Hx of Kidney/liver transplant in 2021
# History of hepatitis C and liver cirrhosis
Continue tacrolimus and mycophenolate
Tacrolimus level is therapeutic
patient follows with [facility] and states he has an upcoming appointment within next month
# ROXY, resolved
# Acute on chronic urinary retention
# h/o BPH.
Patient refusing Mejia, continue intermittent straight cath
Creatinine at 1.5 today, baseline at 1.2
Renal US of donor kidney: hydronephrosis + hydroureter
nephro on board
TURP was planned but canceled due to DVT found on lower extremity venous ultrasound.
d/w heme Dr Arthur 09/04, unclear exact risk of PE with current chronic DVT, but felt risk of progression to PE would be low in setting of IVC filter (despite it being old) and clot being chronic.
Ultimately, pt needs to decide for himself that in current setting of unclear risk vs benefit of TURP, would he be willing to take the risk for TURP to help relieve his urinary retention.
Patient informed that he is willing to take the risk of TURP (even if the risk includes )
Will CS pulm and Card for preop assessment
# Remote lower extremity thrombus no clinical symptoms to suggest acuity
# Remote IVC, little protective effect against pulmonary embolus
US noted Nonocclusive thrombus in the left femoral and popliteal veins, difficult to differentiate acute versus chronic,
Patient is adamantly refusing outpatient anticoagulation despite the knowledge that the IVC filter is likely no longer protective against pulmonary embolus
Heme on board
# Lower Back pain
# Right Hip Pain
# Sciatica - description of pain traveling down lower back to groin/leg
appreciate ortho consult
X-rays of the right hip demonstrate a healed right hip fracture. Hardware is intact with no signs of loosening or failure.
X-rays of the right knee demonstrate mild degenerative changes with medial and lateral compartment chondrocalcinosis.
PT evaluation - Pt able to mobilize with supervision using rolling walker
Oxycodone for pain control
patient states he takes medical marijuana outside the hospital
# Normocytic anemia
# Pancytopenia, on two immunosuppressants s/p liver and kidney transplant
hemoglobin stable
# Muscle Spasms
likely Iron deficiency
Cyclobenzaprine
# IDDM
# Hypoglycemia
reduce Lantus from 14 to 7 units HS, reduce NovoLog from 8 to 5 units AC.
cover with ISS
# CAD
Continue aspirin
# Severe protein calorie malnutrition
BMI 23.3
DVT prophylaxis: subcu heparin
CODE STATUS: FULL CODE
DW Heme Dr Arthur
DW Uro Dr Ann
DW Card and Pulm
total time spent 51 min
Anticipated Discharge: > 48 hours
Subjective/Interval History
-
Date of Service: September 05, 2023
Objective Data
-
Labs:
Laboratory Results
09/05/23
06:42
WBC 5.3
Hgb 9.3 L
Hct 26.1 L
Plt Count 103 L
Sodium 136
Potassium 5.0
Chloride 107
Carbon Dioxide 25
BUN 52 H
Creatinine 1.5 H
Glucose 56 L
Calcium 8.4
Vital Signs:
Vital Signs
Temp Pulse Resp BP Pulse Ox
36.9 C 99 17 106/69 100
09/05/23 07:00 09/05/23 07:00 09/05/23 07:00 09/05/23 07:00 09/05/23 07:00
I&O
09/04/23 09/05/23 09/06/23
06:59 06:59 06:59
Intake Total 1100 / 1100 1320 / 1320
Output Total 1535 / 1535 2250 / 2250
Balance -435 / -435 -930 / -930
Review of Systems
-
Genitourinary: Reports Other (urine retention)
Physical Exam
-
General: Well Developed, Well Nourished and Conversant
HEENT: Normocephalic, Atraumatic and Moist Mucous Membranes
Respiratory: Clear to Auscultation and Non Labored Respirations; Negative Accessory Resp Muscle Use
Cardiac: Regular Rhythm, S1/S2 and Murmur
GI: Soft, Nontender and Nondistended; Negative Normal Bowel Sounds
Musculoskeletal: No Clubbing, No Cyanosis and No Edema
Skin: Warm, Dry and Ulcers (right foot in wound dressing)
Neuro: Awake and Alert
Psych: Calm and Intact Judgement/Insight
Data Reviewed
-
Ultrasound: Report Reviewed by me
Labs: Labs Reviewed by me
[2023-09-05] MEDS: NOVOLOG FLEXPEN SC (10:09)
--- NOTE | 2023-09-05 10:37 | CON.PUL ---
Consultation
Consultation Request
Date/Time Consultation Requested: 09/05/2023-11 AM
Date/Time Consultation Performed: 09/05/2023-11 AM
Requesting Provider: Hospitalist
Performing Provider: Dr. Walters
Reason for Consultation: Preop pulmonary clearance
Medical History
-
Chief Complaint: Bladder outlet obstruction
History of Present Illness:
63-year-old male with multiple medical problems including liver and kidney transplantation, chronic renal failure with chronic urinary retention requiring TURP, chronic DVT not on anticoagulation, has IVC filter and pulmonary consulted for
preoperative pulmonary clearance 09/05/2023. Patient states that he has never had any lung problems. He denies any shortness of breath, chest pain, chest tightness, wheezing, productive cough, pleurisy and currently denies any abdominal pain,
increased leg swelling or weakness.
Past Medical History
Past Medical History: None (CAD/stents. Diabetes. Renal and liver transplantation 2021. Chronic anemia. Chronic thrombocytopenia. Diabetes. History of hepatitis C/cirrhosis. Chronic IVC filter. Right hip fracture. Former 5-pack-year smoker.)
Social History
Tobacco: Former Smoker (5-pack-year quit)
Alcohol: None
Drug: None
Occupational Exposures: No known asbestos exposure
Environmental Exposures: No known tuberculosis exposure
Family History
Family History: Reviewed & Not Pertinent
Allergies / Home Medications
Allergies
Allergy/AdvReac Type Severity Reaction Status Date / Time
No Known Allergies Allergy Unverified 06/16/23 10:49
Home Medications
�Medication �Instructions �Recorded �Confirmed �Last Taken �Type
aspirin 81 mg tablet,delayed 81 mg PO DAILY Blood Clot 08/15/23 08/15/23 08/14/23 History
release Prevention/Tx
insulin lispro 100 unit/mL 0 sliding scale dose SC 08/15/23 08/15/23 08/15/23 History
subcutaneous pen DIRECTED Diabetes
mycophenolate sodium 180 mg 180 mg PO Q12H@0800,2000 Kidney 08/15/23 08/15/2308/14/24 History
tablet,delayed release transplant
tacrolimus 1 mg capsule, 3 mg PO Q12H@0800,2000 kidney 08/15/23 08/15/23 08/15/23 History
immediate-release transplant
sodium hypochlorite 0.125 % 1 applic topical DAILY #0 mL 08/21/23 Unknown Rx
solution (Dakin's Solution)
Insulin Glargine Lantus As Directed mls/hr SC HS 09/01/23 Unknown Rx
[Lantus] 14 units
acetaminophen 325 mg tablet 650 mg (2 x 325 mg) PO Q6H mild 09/01/23 Unknown Rx
pain #60 tabs
catheter 16 Fr #30 ea 09/01/23 Unknown Rx
cyclobenzaprine 10 mg tablet 10 mg PO Q12H PRN muscle spasm #60 09/01/23 Unknown Rx
tabs
oxycodone 5 mg tablet 5 mg PO Q4HPRN PRN moderate pain 09/01/23 Unknown Rx
#18 tabs
tamsulosin 0.4 mg capsule 0.4 mg PO DAILY For urinary 09/01/23 Unknown Rx
retention. Take in the morning #30
caps
Review of Systems
-
Unable to Obtain full review of systems at this time due to: Other (Per HPI)
Vitals / Labs / Diagnostic Testing
Vital Signs
Temp Pulse Resp BP Pulse Ox
98.4 F 99 17 106/69 96
09/05/23 07:00 09/05/23 07:00 09/05/23 07:00 09/05/23 07:00 09/05/23 09:38
Lab Data
09/05/23 06:42
09/05/23 06:42
Diagnostic Testing:
Physical Exam
-
Exam:
Well-nourished and well-developed in no apparent distress
HEENT-atraumatic, normocephalic
Neck-supple, no JVD, no bruit
Heart regular with 2-3/6 systolic murmur
Chest-clear to auscultation, no wheezes, crackles
Back-no tenderness
Abdomen-soft, nontender, nondistended, no hepatosplenomegaly
Extremities-no cyanosis, clubbing, edema and good peripheral pulses
Integument-intact, no rashes, lesions or ecchymosis
Neurology-alert and oriented, nonfocal motor and sensory exam
Assessment
-
63-year-old male with multiple medical problems including liver and kidney transplantation, chronic renal failure with chronic urinary retention requiring TURP, chronic DVT not on anticoagulation, has IVC filter and pulmonary consulted for
preoperative pulmonary clearance 09/05/2023.
Assessment
Right heel wound-improved
Recent right hip fracture status post ORIF June 2023
Bladder outlet obstruction for possible TURP
Chronic DVT not on oral anticoagulant-has chronic IVC filter
Ntdkyy-uyarexorsz-wloavpabap 9.3
Hyperglycemia
Conditions present prior to admission:
CAD/stents.
Diabetes.
Renal and liver transplantation 2021.
Chronic anemia.
Chronic thrombocytopenia.
Aortic stenosis-moderate
Diabetes.
History of hepatitis C/cirrhosis.
Chronic IVC filter.
Right hip fracture.
Former 5-pack-year smoker.
Plan
Pulmonary was consulted for preoperative pulmonary clearance
Patient is stable from a pulmonary perspective-is has a distant 5-pack-year smoking history, lungs are clear, his IVC filter, chronic DVT
Patient is cleared for proposed TURP from a pulmonary perspective
Incentive spirometry
Supplemental oxygen if needed
Aspiration precautions
Cardiology evaluation pending
Has a history of stenosis aortic and coronary artery stenting
Heel pressure ulcer-diabetic foot wound
Podiatry following-no need for surgical debridement
Cultures reviewed
Infectious disease following
Antibiotics per infectious disease
History of kidney and liver transplantation on immunosuppressive medications
Nephrology following
Urology following-TURP tentatively planned
Hematology following-correspondence reviewed
Follow hemoglobin
Transfuse if needed
Monitor blood sugar
Insulin supplementation as needed
Reviewed with primary team, nursing, and cardiology
Diagnostic data:
Lower extremity ultrasound bilaterally 08/30/2023-no evidence for deep venous thrombosis in the right lower extremity, nonocclusive thrombus left femoral and popliteal veins
Echocardiogram 08/30/2023-EF 65-70%, moderate aortic stenosis, PA systolic 20-25
Data Reviewed
-
EKG: Report reviewed by me
Radiology: Report reviewed by me
Ultrasound: Report reviewed by me
Medical Tests (Nuc Med, Echo etc): Report reviewed by me
Labs: Labs reviewed by me
Old Records: Reviewed
Total Time Spent with Patient (in minutes): 55
--- NOTE | 2023-09-05 10:57 | CON.CAR ---
Addendum entered and electronically signed by Oh Peraza MD 09/05/23 14:11:
I saw and examined the patient.
The PERFORMANCE IMPROVEMENT COORDINATOR or PA's note was reviewed and I agree with the note.
Comment: General: Well developed, well nourished in NAD.
Neck: Supple, no JVD, HJR, carotids +2 B/L, no bruits bilaterally.
Heart: Non displaced PMI, RRR, 2/6 basal systolic murmur, No S3, S4, no rubs.
Lungs: Clear to auscultation bilaterally, no wheeze, rhonchi, rubs bilaterally,
normal expiratory phase.
Abdomen: Normal bowel sounds, soft, non-tender, non-distended.
Extremities: No clubbing, cyanosis or edema bilaterally.
Neuro: Grossly nonfocal, awake, alert and oriented x3.
Deangelo has a history of liver and kidney transplant in February 2022 at [facility], coronary disease status post stents, moderate aortic stenosis, hepatitis C cirrhosis, chronic left lower extremity DVT with IVC filter, diabetes. He was admitted with
hip pain as well as heel pain concerning for cellulitis. He is found to have renal insufficiency with chronic urinary retention. He has been requiring straight catheterization. Cardiology is asked to see patient as preoperative evaluation prior
to TURP.
Will review records from [facility]. He is at increased risk for TURP surgery but risk is not prohibitive and would proceed without further testing.
Original Note:
Consultation
Consultation Request
Date/Time Consultation Requested: 09/05/2023
Date/Time Consultation Performed: 09/05/2023
Requesting Provider: Dr. Dalton
Performing Provider: Laura Stewart PA-C for Dr. Peraza
Reason for Consultation: pre-operative cardiac clearance
Medical History
-
History of Present Illness:
Patient is a 63-year-old male with past medical history significant for chronic left lower extremity DVT with IVC filter, insulin-dependent diabetes, coronary artery disease with stents, aortic stenosis, hepatitis C induced cirrhosis with subsequent
liver failure for which she underwent liver/kidney transplant in February 2022 at [facility], chronic opioid dependence and recent hip fracture June 2023 s/p ORIF who presented to emergency department 08/15/2023 with complaints of
hip pain as well as heel pain ulcer with concerns for cellulitis. Patient was noted to have ROXY on admission and found to have acute on chronic urinary retention. Patient has been requiring daily straight catheterizations and has finally agreed to
proceed with TURP. Cardiology is being asked to see patient for preoperative clearance given prior history of CAD.
Patient is a very poor historian. He reports he had several cardiac stents at [facility] in February 2022 several days prior to his kidney and liver transplant. He reports he never followed with cardiology after his discharge
and is only maintained on an aspirin 81 mg daily. He tells me he has not seen his family doctor in several years. He cannot tell me the name of his transplant team except that it is that [facility] in [place] and he sees him
every couple months. He reports prior to his hip fracture in June he was an active individual and walked 2-3 times a week without any concerning cardiac symptoms. Currently he denies chest pain, shortness of breath, dizziness, lightheadedness,
edema, orthopnea, palpitations or PND.
PMH:
Chronic left lower extremity DVT w/ IVC filter
Insulin-dependent diabetes
CAD with stents February [address] [facility]
Aortic stenosis
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
Liver/kidney transplant [address] [facility]
Chronic immunosuppression with tacrolimus and mycophenolate
Chronic anemia
Chronic thrombocytopenia
Right hip fracture s/p ORIF June 2023
Chronic opioid dependence
Past Medical History
Past Medical History: Other (See HPI)
Past Surgical History: Orthopedic ( s/p ORIF June 2023 ) and Other (Liver/Renal transplant Feb [address] [facility])
Social History
Tobacco: Former Smoker (quit ~2009)
Alcohol: None
Drug: Narcotics (Chronic opioid dependence)
Personal: Single
Living: Alone (Lives out of his car)
Employment: Disabled
Family History
Family History: Other (Father had pacemaker, mother had CAD/[place] and at 76)
Allergies / Home Medications
Allergy/AdvReac Type Severity Reaction Status Date / Time
No Known Allergies Allergy Unverified 06/16/23 10:49
�Medication �Instructions �Recorded �Confirmed �Type
aspirin 81 mg tablet,delayed 81 mg PO DAILY Blood Clot 08/15/23 08/15/23 History
release Prevention/Tx
insulin lispro 100 unit/mL 0 sliding scale dose SC 08/15/23 08/15/23 History
subcutaneous pen DIRECTED Diabetes
mycophenolate sodium 180 mg 180 mg PO Q12H@0800,1999 Kidney 08/15/23 08/15/23 History
tablet,delayed release transplant
tacrolimus 1 mg capsule, 3 mg PO Q12H@0800,1999 kidney 08/15/23 08/15/23 History
immediate-release transplant
sodium hypochlorite 0.125 % 1 applic topical DAILY #0 mL 08/21/23 Rx
solution (Dakin's Solution)
Insulin Glargine Lantus As Directed mls/hr SC HS 09/01/23 Rx
[Lantus] 14 units
acetaminophen 325 mg tablet 650 mg (2 x 325 mg) PO Q6H mild 09/01/23 Rx
pain #60 tabs
catheter 16 Fr #30 ea 09/01/23 Rx
cyclobenzaprine 10 mg tablet 10 mg PO Q12H PRN muscle spasm #60 09/01/23 Rx
tabs
oxycodone 5 mg tablet 5 mg PO Q4HPRN PRN moderate pain 09/01/23 Rx
#18 tabs
tamsulosin 0.4 mg capsule 0.4 mg PO DAILY For urinary 09/01/23 Rx
retention. Take in the morning #30
caps
Review of Systems
-
History Source: Patient
All other systems: Negative unless noted
Physical Exam
Vital Signs
Temp Pulse Resp BP Pulse Ox
98.4 F 99 17 106/69 96
09/05/23 07:00 09/05/23 07:00 09/05/23 07:00 09/05/23 07:00 09/05/23 09:38
GEN: No distress, awake, Ox3, lying in bed
HEENT: supple, anicteric, mmm
LUNGS: CTA, no wheezes/rales
CV: Reg, S1/S2, 2/6 radiating syst murmur
ABD: soft, BS+, NT/ND
EXT: No edema, clubbing or cyanosis
NEURO: Gross non-focal
SKIN: No rash, warm, dry, pink
Lab Results
09/05/23 06:42
09/05/23 06:42
Impression / Plan
-
PCP: Geneva Lantigua
Operations Supervisor 2Nd Shift: Denies ever seeing cardiology as outpt
Impression:
Presented 08/15/23 with right hip and heel pain
ROXY
Urinary retention with bladder outlet obstruction
Chronic left lower extremity DVT w/ IVC filter
Insulin-dependent diabetes
CAD with stents February [address] [facility]
Aortic stenosis
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
Liver/kidney transplant [address] [facility]
Chronic immunosuppression with tacrolimus and mycophenolate
Chronic anemia
Chronic thrombocytopenia
Right hip fracture s/p ORIF June 2023
Chronic opioid dependence
Echo 08/30/2023: EF 65 to 70%. Mildly dilated right ventricle with normal RV systolic function. Moderate aortic stenosis with peak/mean gradient 33/20 mmHg with EDI 1.0 cm�, PAP 20 to 25 mmhg
LE Art doppler 08/17/23: Normal study. Bilateral ankle and toe brachial indices within normal limits. Multiphasic waveforms from bilateral common femoral through popliteal arteries with no velocity elevation to suggest any significant stenosis.
Continuous Doppler waveforms of the dorsalis pedis and posterior tibial arteries also remain multiphasic.
Plan:
-Presented 08/15/1910/28/2023 with right heel and hip pain with concern for right heel cellulitis. Noted to have ROXY with acute urinary retention with concern for bladder outlet syndrome. Cardiology being asked to see patient for preoperative cardiac
clearance for proposed TURP
-History of cardiac stents at [facility] in February 2022. Patient maintained on aspirin only as outpatient. Unclear why he is not on statin. Patient reports he had good functional capacity without any concerning cardiac
symptoms prior to his hip fracture in June 2023.
-EKG June 2023 showed sinus rhythm without ischemic changes. Will repeat EKG pre-op
-Echo August 2023 shows preserved ejection fraction with moderate to severe aortic stenosis. No evidence of heart failure and denies any cardiac symptoms
-Records have been requested from [facility] regarding prior cardiac stenting.
-He appears overall stable from a cardiac standpoint to proceed with proposed TURP without any additional cardiac testing. Would monitor him on telemetry. Been in the postop setting.
-Completed course of antibiotics for diabetic foot wound with negative blood cultures.
-Diabetes with hemoglobin A1c 6.5% continue insulin
-History of renal and liver transplant. Continue tacrolimus and mycophenolate
HPI 08/26/2023:
Patient is a 63-year-old male with past medical history significant for chronic left lower extremity DVT with IVC filter, insulin-dependent diabetes, coronary artery disease with stents, aortic stenosis, hepatitis C induced cirrhosis with subsequent
liver failure for which she underwent liver/kidney transplant in February 2022 at [facility], chronic opioid dependence and recent hip fracture June 2023 s/p ORIF who presented to emergency department 08/15/2023 with complaints of
hip pain as well as heel pain ulcer with concerns for cellulitis. Patient was noted to have ROXY on admission and found to have acute on chronic urinary retention. Patient has been requiring daily straight catheterizations and has finally agreed to
proceed with TURP. Cardiology is being asked to see patient for preoperative clearance given prior history of CAD.
Patient is a very poor historian. He reports he had several cardiac stents at [facility] in February 2022 several days prior to his kidney and liver transplant. He reports he never followed with cardiology after his discharge
and is only maintained on an aspirin 81 mg daily. He tells me he has not seen his family doctor in several years. He cannot tell me the name of his transplant team except that it is that [facility] in [place] and he sees him
every couple months. He reports prior to his hip fracture in June he was an active individual and walked 2-3 times a week without any concerning cardiac symptoms. Currently he denies chest pain, shortness of breath, dizziness, lightheadedness,
edema, orthopnea, palpitations or PND.
Data Reviewed
-
EKG: Report Reviewed by me, Discussed with Physician, Discussed with Nurse and Discussed with Patient
Medical Tests (Nuc Med, Echo etc): Report Reviewed by me, Discussed with Physician, Discussed with Nurse and Discussed with Patient
Labs: Discussed with Physician, Discussed with Patient and Discussed with Family
Old Records: Requested
[2023-09-05 12:33] LABS: Glucose - Point of Care 175 mg/dl (70-99)
--- NOTE | 2023-09-05 13:20 | W.PN.ONC ---
Today's Communication / Plan
-
Will check CT abdomen to look for possible collaterals which would lessen the efficacy of the IVC filter. Will also check for possible clot on the IVC filter. Hopefully we can obtain venous Doppler results from [facility] and try to compare it
with our study here.
Impression
Impression
Remote lower extremity thrombus no clinical symptoms to suggest acuity
Remote IVC
Cellulitis
Diabetes
Vascular disease
Plan
Plan
Review of ultrasound suggests nonocclusive thrombus of indeterminate age suspect chronic given history and current clinical findings
Would recommend obtaining ultrasound images from [facility] for comparison, however, patient is adamantly refusing outpatient anticoagulation despite the knowledge that the IVC filter is likely no longer protective against pulmonary embolus
Suspect if oral anticoagulation was provided patient would be noncompliant
Subjective/Objective
Subjective/Objective
He is feeling about the same. Plans are for a TURP on . Examination is unchanged.
Vital Signs:
Vital Signs
Temp Pulse Resp BP Pulse Ox
98.4 F 99 17 106/69 96
09/05/23 07:00 09/05/23 07:00 09/05/23 07:00 09/05/23 07:00 09/05/23 09:38
Lab Results:
Laboratory Data
WBC 5.3 10^3/uL (4.8-10.8) 09/05/23 06:42
Hgb 9.3 g/dL (13.0-18.0) L 09/05/23 06:42
Plt Count 103 10^3/uL (130-400) L 09/05/23 06:42
APTT Cancelled 08/31/23 00:15
eGFR 52.64 09/05/23 06:42
Orders
Orders
Orders From Last 24 Hours
09/05/23 13:17
CT Abd/pelvis W Iv Cont Routine
[2023-09-05] MEDS: NOVOLOG FLEXPEN 5 UNITS SC ×2 (13:26→18:00)
[2023-09-05] MEDS: NOVOLOG FLEXPEN-HIGH RESISTANCE 2 UNITS SC ×2 (13:26→18:04)
--- NOTE | 2023-09-05 14:41 | W.PN.NEPH.PH ---
Today's Communication / Plan
-
- fluids
Assessment/Plan
-
ROXY
R heel pressure ulcer
Left side Royator cuff inj
Coronary Artery Disease with stents
Left Kidney/Liver Transplant in 2021 for Cirrhosis secondary to Hepatitis C-at [facility] February 26, 2022, b/l 1.3
Diabetes Mellitus, Type II no history of diabetic neuropathy or retinopathy
Chronic back pain requiring chronic opioid dependence
DJD -C3-C4, C5-C6
Urine drug screen positive for fentanyl
Anemia
Thrombocytopenia
DVT
Plan:
follow BMP
continue tac/mmf
patient unable to undergo TURP due to DVT. uro rec'd rodrigues/straight cath which patient is refusing
heme would like patient to undergo CT with contrast, plan for LR 60cc/hr pre and post 6 hours
loklema MWF
-
-
Date of Service: September 05, 2023
CC / HPI / ROS
-
Chief Complaint:
ROXY
History of Present Illness:
ROXY/Cr down to 1.5
K down to 5 with lokelma
plt stable
BP stable
no rodrigues, but straight cath intermittently still
on immunosuppression for renal transplant
Review of Systems:
no CP/SOB
bladder pain
Labs
-
Labs:
WBC 5.3 10^3/uL (4.8-10.8) 09/05/23 06:42
RBC 3.13 10^6/uL (4.70-6.10) L 09/05/23 06:42
Hgb 9.3 g/dL (13.0-18.0) L 09/05/23 06:42
Hct 26.1 % (39.0-52.0) L 09/05/23 06:42
Plt Count 103 10^3/uL (130-400) L 09/05/23 06:42
Sodium 136 mmol/L (135-145) 09/05/23 06:42
Potassium 5.0 mmol/L (3.5-5.1) 09/05/23 06:42
Chloride 107 mmol/L (98-107) 09/05/23 06:42
Carbon Dioxide 25 mmol/L (22-30) 09/05/23 06:42
BUN 52 mg/dl (9-20) H 09/05/23 06:42
Creatinine 1.5 mg/dL (0.7-1.3) H 09/05/23 06:42
eGFR 52.64 09/05/23 06:42
Glucose 56 mg/dl (70-99) L 09/05/23 06:42
Calcium 8.4 mg/dl (8.4-10.2) 09/05/23 06:42
Albumin 2.6 g/dl (3.5-5.0) L 08/29/23 06:49
Physical Exam
-
Vital Signs:
Vital Signs
Temp Pulse Resp BP Pulse Ox
98.4 F 99 17 106/69 96
09/05/23 07:00 09/05/23 07:00 09/05/23 07:00 09/05/23 07:00 09/05/23 09:38
Cardiovascular:: Regular rate and rhythm
Respiratory:: Bilateral: Coarse
Lung Excursion:: Normal
Abdomen:: Nontender and Soft
Bowel Sounds:: Normal
Extremity Edema:: None: Bilateral:
Rodrigues Catheter: No
[2023-09-05 15:00] VITALS: BP 123/71
[2023-09-05] MEDS: LR 500 IV (15:24)
--- NOTE | 2023-09-05 16:15 | CM ---
Thus far insurance has not called to render determination about auth. Will call them in the am if no call has been received.
Plan: Case management will continue to follow and assist with discharge planning. [place] once auth is hopefully obtained.
[2023-09-05 18:05] LABS: Glucose - Point of Care 185 mg/dl (70-99)
--- NOTE | 2023-09-05 18:06 | W.PN.URO.CBU ---
Today's Communication / Plan
-
Preop clearance for TURP
Maintain rodrigues until then
Assessment / Plan
-
63M with ROXY and moderate to large volume urinary retention with hydronephrosis of transplant kidney during admission for diabetic foot wound
- TURP cancelled last week due to DVT of indeterminate age
- Undergoing medical clearance and eval of IVC filter - if medically stable for procedure, will plan for TURP on 09/06
- NPO at [facility] 09/06
- Today we again reviewed TURP procedure, post op course with rodrigues and CBI, as well as outcomes, complications, side effects, and recovery. Reviewed this may not be successful and he will still need catheter or CIC. Discussed common side effects of
retrograde ejaculation as well as possibility of ED or other sexual dysfunction, or need for future repeat procedure. Reviewed complications of UTI, hematuria, stricture, damage to nearby structures such as ureter and bladder wall.
- Given persistent elevated post void residual volumes with catheterized volumes up to 1000cc, recommended indwelling rodrigues or CIC 4 times per day until able to proceed with surgery
- On 09/04, straight cath became difficult. 18Fr coude catheter placed at bedside without difficulty which will remain in place until surgery
Diagnosis
-
Date of Service: September 05, 2023
-
Patient Diagnosis:
BPH
Urinary retention
ROXY on CKD s/p kidney transplant
Post Op Day:
Subjective
-
persistent retention and unable to pass cath today
Objective
-
Vital Signs
Temp Pulse Resp BP Pulse Ox
98.4 F 93 17 123/71 94
09/05/23 07:00 09/05/23 15:00 09/05/23 15:00 09/05/23 15:00 09/05/23 15:00
Intake and Output
09/04/23 09/05/23 09/06/23
06:59 06:59 06:59
Intake Total 1100 / 1100 1320 / 1320
Output Total 1535 / 1535 2250 / 2250
Balance -435 / -435 -930 / -930
Intake:
Oral fluids 1100 / 1100 1320 / 1320
Output:
Urine, Voided 200 / 200
Straight cath output 1535 / 1535 2049
Laboratory Results
09/05/23 06:42
09/05/23 06:42
Physical Exam
-
General - well developed, well nourished, no acute distress
Chest - clear
Skin - warm & dry with no rash
Neuro - AOx3, no motor deficits
[2023-09-05] MEDS: FLOMAX 0.400000000000000022 MG PO (21:00)
[2023-09-05] MEDS: LANTUS 0.0700000000000000067 UNITS SC (21:21)
[2023-09-05 21:25] LABS: Glucose - Point of Care 101 mg/dl (70-99)
[2023-09-05 23:00] VITALS: BP 118/77
[2023-09-06] MEDS: TYLENOL PO ×3 (05:20→17:30)
[2023-09-06] MEDS: ROXICODONE 7.5 MG PO ×3 (05:42→21:02)
[2023-09-06 07:30] VITALS: BP 107/67
[2023-09-06] MEDS: MYFORTIC DELAYED REL. 180 MG PO ×2 (07:36→20:09)
[2023-09-06] MEDS: PROGRAF 3 MG PO ×2 (07:36→20:09)
[2023-09-06] MEDS: ASPIR LOW (ENTERIC COATED) 81 MG PO (07:37)
[2023-09-06] MEDS: MIRALAX PO (07:37)
[2023-09-06] MEDS: COLACE 100 MG PO ×2 (07:37→20:08)
[2023-09-06 07:50] LABS: Glucose - Point of Care 120 mg/dl (70-99)
[2023-09-06] MEDS: NOVOLOG FLEXPEN-HIGH RESISTANCE SC ×3 (08:01→17:28)
--- NOTE | 2023-09-06 09:58 | CM ---
Reviewed chart, patient scheduled for TURP this week. Will call insurance to determine if auth went through.
Plan: Case management will continue to follow and assist with discharge planning. Hopeful discharge to [facility] if auth can be obtained.
--- NOTE | 2023-09-06 10:02 | W.PN.PUL.V3 ---
Today's Communication / Plan
-
Respiratory status stable.
Incentive spirometry.
Tentative surgery tomorrow
Assessment
-
63-year-old male with multiple medical problems including liver and kidney transplantation, chronic renal failure with chronic urinary retention requiring TURP, chronic DVT not on anticoagulation, has IVC filter and pulmonary consulted for
preoperative pulmonary clearance 09/05/2023.
Assessment
Right heel wound-improved
Recent right hip fracture status post ORIF June 2023
Bladder outlet obstruction for possible TURP
Chronic DVT not on oral anticoagulant-has chronic IVC filter
Dlhcjn-qnenxwecwp-hhnjcntytn 9.3
Hyperglycemia
Conditions present prior to admission:
CAD/stents.
Diabetes.
Renal and liver transplantation 2021.
Chronic anemia.
Chronic thrombocytopenia.
Aortic stenosis-moderate
Diabetes.
History of hepatitis C/cirrhosis.
Chronic IVC filter.
Right hip fracture.
Former 5-pack-year smoker.
Plan
Pulmonary status remained stable. .
The patient continues to be cleared for proposed TURP from a pulmonary perspective
Incentive spirometry
Supplemental oxygen if needed
Aspiration precautions
Cardiology evaluation noted
Has a history of stenosis aortic and coronary artery stenting
Heel pressure ulcer-diabetic foot wound
Podiatry following-no need for surgical debridement
Cultures reviewed
Infectious disease following
Antibiotics per infectious disease
History of kidney and liver transplantation on immunosuppressive medications
Nephrology following-correspondence reviewed
Urology following-TURP tentatively planned 09/07/23
Hematology following-correspondence reviewed
Continue to follow hemoglobin
Transfuse if needed
Monitor blood sugar
Insulin supplementation as needed
Reviewed with primary team, nursing, and cardiology
Diagnostic data:
Lower extremity ultrasound bilaterally 08/30/2023-no evidence for deep venous thrombosis in the right lower extremity, nonocclusive thrombus left femoral and popliteal veins
Echocardiogram 08/30/2023-EF 65-70%, moderate aortic stenosis, PA systolic 20-25
Subjective Data
-
Date of Service:
Date of Service: September 06, 2023
Chief Complaint: Pulmonary Follow Up and Dyspnea Follow Up
Subjective:
Denies any shortness of breath at rest, chest congestion, pleurisy, productive cough
Review of Systems
General: Other ( per HPI)
Objective Data
Data Reviewed
Vital Signs / I&O:
Vital Signs
Temp Pulse Resp BP Pulse Ox
98.5 F 104 18 107/67 100
09/06/23 07:30 09/06/23 07:30 09/06/23 07:30 09/06/23 07:30 09/06/23 07:30
Intake and Output
09/05/23 09/06/23 09/07/23
06:59 06:59 06:59
Intake Total 1320 / 1320 1360 / 1360
Output Total 2250 / 2250 1900 / 1900
Balance -930 / -930 -540 / -540
SaO2: 100
Physical Exam
General: Respiratory Distress (nn) and Comfortable
HEENT: Normocephalic, Anicteric and Moist Mucous Membranes
Cardiovascular: Regular Rhythm
Respiratory: Wheeze (n), Crackles (n), Rhonchi (n), Non-Labored Respirations and Accessory Resp Muscle Use (n)
GI: Soft, Non Distended and Non Tender
Neurology: Awake, Alert and No Motor Deficits
Skin: Warm, Good Color, Cyanosis (n) and Jaundice (n)
--- NOTE | 2023-09-06 10:27 | W.PN.HOSP.TC ---
Today's Communication/Plan
-
see A/P
Assessment / Plan
Assessment / Plan
A/P:
# Right heel pressure ulcer
# Diabetic Foot wound
arterial US normal
apprec podiatry, no need for surgical debridement
blood cultures negative, Wound cultures shows E. coli, Staph aureus, Strep pyogenes
Completed Abx course (broad spectrum -> Cephalexin x 7 days)
Wound care on board
# Chronic Moderate aortic stenosis.
# Hx of Kidney/liver transplant in 2021
# History of hepatitis C and liver cirrhosis
Continue tacrolimus and mycophenolate
Tacrolimus level is therapeutic
patient follows with [facility] and states he has an upcoming appointment within next month
# ROXY, resolved
# Acute on chronic urinary retention
# h/o BPH
pending blood work today.
Creatinine was at 1.5 yesterday, baseline at 1.2
Renal US of donor kidney: hydronephrosis + hydroureter
nephro on board
TURP was planned but canceled due to DVT found on lower extremity venous ultrasound.
d/w heme Dr Arthur 09/04, unclear exact risk of PE with current chronic DVT, but felt risk of progression to PE would be low in setting of IVC filter (despite it being old) and clot being chronic.
CT AP ordered preop, did no reveal anterior abdominal wall portosystemic venous collaterals, confirmed Inferior vena cava filter in place.
Consulted Card and Pulm for pre op clearances
Mejia placed 09/04 given persistent elevated post void residual volumes and straight cath became difficult
Now TURP planned for 09/06, NPO past midnight
# Remote lower extremity thrombus no clinical symptoms to suggest acuity
# Remote IVC, little protective effect against pulmonary embolus
US noted Nonocclusive thrombus in the left femoral and popliteal veins, difficult to differentiate acute versus chronic,
Patient refuses anticoagulation
Heme on board
# Lower Back pain
# Right Hip Pain
# Sciatica - description of pain traveling down lower back to groin/leg
appreciate ortho consult
X-rays of the right hip demonstrate a healed right hip fracture. Hardware is intact with no signs of loosening or failure.
X-rays of the right knee demonstrate mild degenerative changes with medial and lateral compartment chondrocalcinosis.
Oxycodone for pain control
took pt off of IV Dilaudid, will add low dose morphine for mod to severe pain
Trazodone 50 mg HS added to help with sleep
patient states he takes medical marijuana outside the hospital
# Normocytic anemia
# Pancytopenia, on two immunosuppressants s/p liver and kidney transplant
hemoglobin stable
# Muscle Spasms
likely Iron deficiency
Cyclobenzaprine
# IDDM
# Hypoglycemia
reduced Lantus from 14 to 7 units HS, reduced NovoLog from 8 to 5 units AC.
Would hold Lantus tonight while NPO
cover with ISS
# CAD
Continue aspirin
# Severe protein calorie malnutrition
BMI 23.3
DVT prophylaxis: subcu heparin
CODE STATUS: FULL CODE
Anticipated Discharge: > 48 hours
Subjective/Interval History
-
Date of Service: September 06, 2023
Objective Data
-
Labs:
Laboratory Results
09/06/23
06:00
WBC Pending
Hgb Pending
Hct Pending
Plt Count Pending
Sodium Pending
Potassium Pending
Chloride Pending
Carbon Dioxide Pending
BUN Pending
Creatinine Pending
Glucose Pending
Calcium Pending
Vital Signs:
Vital Signs
Temp Pulse Resp BP Pulse Ox
36.9 C 104 18 107/67 100
09/06/23 07:30 09/06/23 07:30 09/06/23 07:30 09/06/23 07:30 09/06/23 10:02
I&O
09/05/23 09/06/23 09/07/23
06:59 06:59 06:59
Intake Total 1320 / 1320 1360 / 1360
Output Total 2250 / 2250 1900 / 1900
Balance -930 / -930 -540 / -540
[2023-09-06] MEDS: DAKIN'S SOLUTION 0.125% 1/4 STRENGTH 5 ML TOPICAL (10:58)
[2023-09-06] MEDS: NOVOLOG FLEXPEN 5 UNITS SC ×2 (10:59→14:30)
[2023-09-06] MEDS: LOKELMA 10 GRAM PO (11:24)
[2023-09-06] MEDS: MORPHINE SULFATE 1 MG IV (11:28)
[2023-09-06 11:54] LABS: Hematocrit 27.9 % (39.0-52.0); Mean Corp Hgb Conc. 35.8 g/dL (33.0-37.0); Mean Corpuscular Hgb 29.5 pg (27.0-31.0); Mean Corpuscular Volume 82.3 fL (80.0-94.0); Mean Platelet Volume 10.7 fL (7.4-10.4); Platelet Count 111 10^3/uL (130-400); Red Blood Cell Count 3.39 10^6/uL (4.70-6.10); Red Cell Dist. Width 15.1 % (11.5-14.5); White Blood Cell Count 4.9 10^3/uL (4.8-10.8)
--- NOTE | 2023-09-06 12:09 | W.PN.CARDCBS ---
Addendum entered and electronically signed by Theodore Cerrato MD 09/06/23 14:26:
I saw and examined the patient.
The Aluminum Siding Applicator's note was reviewed and I agree with the note.
Comment: GEN: No distress, awake, Ox3
HEENT: supple, anicteric, mmm
LUNGS: CTA, no wheezes/rales
CV: Reg, S1/S2, 2/6 syst LSB, no murmur
ABD: soft, BS+, NT/ND
EXT: No edema
NEURO: Gross non-focal
SKIN: No rash
Plan:
He denies any chest pains or shortness of breath. Check EKG. Echo was reviewed with preserved ejection fraction and moderate aortic stenosis. He is stable to proceed with TURP. He will be moderate risk.
Continue aspirin. Will review records as to why he is not on statin therapy.
Original Note:
Today's Communication / Plan
-
for TURP tomorrow
elevated but not prohibitive risk from cardiac standpoint to proceed
check preop EKG. place on tele periop
Impression / Plan
-
PCP: Geneva Lantigua
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
Impression:
Presented 08/15/23 with right hip and heel pain
ROXY
Urinary retention with bladder outlet obstruction
Chronic left lower extremity DVT w/ IVC filter
Insulin-dependent diabetes
CAD with stents February 2022 [facility]
Aortic stenosis
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
Liver/kidney transplant 2021 [facility]
Chronic immunosuppression with tacrolimus and mycophenolate
Chronic anemia
Chronic thrombocytopenia
Right hip fracture s/p ORIF June 2023
Chronic opioid dependence
Echo 08/30/2023: EF 65 to 70%. Mildly dilated right ventricle with normal RV systolic function. Moderate aortic stenosis with peak/mean gradient 33/20 mmHg with EDI 1.0 cm�, PAP 20 to 25 mmhg
LE Art doppler 08/17/23: Normal study. Bilateral ankle and toe brachial indices within normal limits. Multiphasic waveforms from bilateral common femoral through popliteal arteries with no velocity elevation to suggest any significant stenosis.
Continuous Doppler waveforms of the dorsalis pedis and posterior tibial arteries also remain multiphasic.
Plan:
-Presented 08/15/1910/28/2023 with right heel and hip pain with concern for right heel cellulitis. Noted to have ROXY with acute urinary retention with concern for bladder outlet syndrome. planned for TURP however then found to have nonocclusive thrombus
of L femoral and popliteal veins. he has history of IVC filter. oncology following. patient refused OAC
-planned for TURP 09/06. cardiology consulted for preop clearance
-echo with results as above
-preop EKG ordered. will place on tele perioperatively
-Records have been requested from [facility] regarding prior cardiac stenting.
-He is at increased risk for TURP surgery from cardiovascular standpoint but risk is not prohibitive and can proceed without further testing.
HPI 08/26/2023:
Patient is a 63-year-old male with past medical history significant for chronic left lower extremity DVT with IVC filter, insulin-dependent diabetes, coronary artery disease with stents, aortic stenosis, hepatitis C induced cirrhosis with subsequent
liver failure for which she underwent liver/kidney transplant in February 2022 at [facility], chronic opioid dependence and recent hip fracture June 2023 s/p ORIF who presented to emergency department 08/15/2023 with complaints of
hip pain as well as heel pain ulcer with concerns for cellulitis. Patient was noted to have ROXY on admission and found to have acute on chronic urinary retention. Patient has been requiring daily straight catheterizations and has finally agreed to
proceed with TURP. Cardiology is being asked to see patient for preoperative clearance given prior history of CAD.
Patient is a very poor historian. He reports he had several cardiac stents at [facility] in February 2022 several days prior to his kidney and liver transplant. He reports he never followed with cardiology after his discharge
and is only maintained on an aspirin 81 mg daily. He tells me he has not seen his family doctor in several years. He cannot tell me the name of his transplant team except that it is that [facility] in [place] and he sees him
every couple months. He reports prior to his hip fracture in June he was an active individual and walked 2-3 times a week without any concerning cardiac symptoms. Currently he denies chest pain, shortness of breath, dizziness, lightheadedness,
edema, orthopnea, palpitations or PND.
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
Subjective
Date of Service: September 06, 2023
without complaints
Objective
Labs:
09/06/23 11:08
Labs
Hgb 10.0 g/dL (13.0-18.0) L 09/06/23 11:08
Hct 27.9 % (39.0-52.0) L 09/06/23 11:08
Plt Count 111 10^3/uL (130-400) L 09/06/23 11:08
APTT Cancelled 08/31/23 00:15
Sodium 136 mmol/L (135-145) 09/05/23 06:42
Potassium 5.0 mmol/L (3.5-5.1) 09/05/23 06:42
BUN 52 mg/dl (9-20) H 09/05/23 06:42
Creatinine 1.5 mg/dL (0.7-1.3) H 09/05/23 06:42
Glucose 56 mg/dl (70-99) L 09/05/23 06:42
Vital Signs and I&O:
Vital Signs
Temp Pulse Resp BP Pulse Ox
98.5 F 104 18 107/67 100
09/06/23 07:30 09/06/23 07:30 09/06/23 07:30 09/06/23 07:30 09/06/23 10:02
Vital Signs
Temp Pulse Resp BP Pulse Ox
98.5 F 104 18 107/67 100
09/06/23 07:30 09/06/23 07:30 09/06/23 07:30 09/06/23 07:30 09/06/23 10:02
Intake & Output
09/04/23 09/05/23 09/06/23 09/07/23
07:59 07:59 07:59 07:59
Intake Total 1100 / 1100 1320 / 1320 1360 / 1360
Output Total 1535 / 1535 2250 / 2250 1900 / 1900
Balance -435 / -435 -930 / -930 -540 / -540
Physical Exam
Physical Exam
GEN: No distress, awake, alert, oriented x3. chronically ill appearing
HEENT: supple, anicteric, mmm, eomi
LUNGS: CTA B/L, no wheezes/rales
CV: Reg, S1/S2, no murmur
EXT: No cyanosis, clubbing, edema
NEURO: Gross non-focal
SKIN: Warm, pink, dry. No rash. R foot with dressing c/d/i
[2023-09-06 12:20] LABS: Blood Urea Nitrogen 47 mg/dl (9-20); Calcium 8.5 mg/dl (8.4-10.2); Carbon Dioxide 24 mmol/L (22-30); Chloride 105 mmol/L (98-107); Estimated Creatinine Clearance 53 ml/min; Glucose 176 mg/dl (70-99); Magnesium 2.4 mg/dl (1.6-2.3); Potassium 5.2 mmol/L (3.5-5.1); Sodium 135 mmol/L (135-145); eGFR 52.64
[2023-09-06 12:24] LABS: Glucose - Point of Care 266 mg/dl (70-99)
--- NOTE | 2023-09-06 13:42 | W.PN.NEPH.PH ---
Today's Communication / Plan
-
follow bmp
Assessment/Plan
-
ROXY
R heel pressure ulcer
Left side Royator cuff inj
Coronary Artery Disease with stents
Left Kidney/Liver Transplant in 2021 for Cirrhosis secondary to Hepatitis C-at [facility] February 26, 2022, b/l 1.3
Diabetes Mellitus, Type II no history of diabetic neuropathy or retinopathy
Chronic back pain requiring chronic opioid dependence
DJD -C3-C4, C5-C6
Urine drug screen positive for fentanyl
Anemia
Thrombocytopenia
DVT
Plan:
follow BMP
continue tac/mmf
loklema MWF
TURP tomorrow tentatively
-
-
Date of Service: September 06, 2023
CC / HPI / ROS
-
Chief Complaint:
ROXY
History of Present Illness:
ROXY/Cr stable 1.5
K stable 5.2 with lokelma
plt stable
BP stable
rodrigues in
on immunosuppression for renal transplant
Review of Systems:
no CP/SOB
Labs
-
Labs:
WBC 4.9 10^3/uL (4.8-10.8) 09/06/23 11:08
RBC 3.39 10^6/uL (4.70-6.10) L 09/06/23 11:08
Hgb 10.0 g/dL (13.0-18.0) L 09/06/23 11:08
Hct 27.9 % (39.0-52.0) L 09/06/23 11:08
Plt Count 111 10^3/uL (130-400) L 09/06/23 11:08
Sodium 135 mmol/L (135-145) 09/06/23 11:08
Potassium 5.2 mmol/L (3.5-5.1) H 09/06/23 11:08
Chloride 105 mmol/L (98-107) 09/06/23 11:08
Carbon Dioxide 24 mmol/L (22-30) 09/06/23 11:08
BUN 47 mg/dl (9-20) H 09/06/23 11:08
Creatinine 1.5 mg/dL (0.7-1.3) H 09/06/23 11:08
eGFR 52.64 09/06/23 11:08
Glucose 176 mg/dl (70-99) H 09/06/23 11:08
Calcium 8.5 mg/dl (8.4-10.2) 09/06/23 11:08
Albumin 2.6 g/dl (3.5-5.0) L 08/29/23 06:49
Physical Exam
-
Vital Signs:
Vital Signs
Temp Pulse Resp BP Pulse Ox
98.5 F 104 18 107/67 100
09/06/23 07:30 09/06/23 07:30 09/06/23 07:30 09/06/23 07:30 09/06/23 10:02
Cardiovascular:: Regular rate and rhythm
Respiratory:: Bilateral: Coarse
Lung Excursion:: Normal
Abdomen:: Nontender and Soft
Bowel Sounds:: Normal
Extremity Edema:: None: Bilateral:
--- NOTE | 2023-09-06 13:53 | W.PN.UPDATE ---
Update Note
Progress Note Update
Preoperative clearance and eval of IVC filter completed
Plan for TURP tomorrow as scheduled
NPO after MN
[2023-09-06] MEDS: NOVOLOG FLEXPEN-HIGH RESISTANCE 7 UNITS SC (14:30)
[2023-09-06 15:15] VITALS: BP 122/68
[2023-09-06 17:06] LABS: Glucose - Point of Care 93 mg/dl (70-99)
[2023-09-06] MEDS: NOVOLOG FLEXPEN SC (17:28)
[2023-09-06 21:33] LABS: Glucose - Point of Care 278 mg/dl (70-99)
[2023-09-06] MEDS: DESYREL 50 MG PO (21:59)
[2023-09-06] MEDS: FLOMAX 0.400000000000000022 MG PO (21:59)
[2023-09-06 23:19] VITALS: BP 149/78
[2023-09-07] VITALS (12 sets, daily range): BP systolic 96–139; BP diastolic 57–79; BMI 22.9
[2023-09-07] MEDS: MORPHINE SULFATE 1 MG IV ×2 (00:27→13:10)
[2023-09-07] MEDS: TYLENOL PO ×6 (00:32→23:08)
[2023-09-07] MEDS: ROXICODONE 7.5 MG PO ×2 (03:27→09:40)
[2023-09-07 06:11] LABS: Glucose - Point of Care 200 mg/dl (70-99)
[2023-09-07] MEDS: NOVOLOG FLEXPEN-HIGH RESISTANCE 4 UNITS SC ×2 (06:22→17:32)
[2023-09-07] MEDS: NOVOLOG FLEXPEN SC ×2 (06:50→13:06)
[2023-09-07 07:14] LABS: Hematocrit 26.3 % (39.0-52.0); Hemoglobin 9.4 g/dL (13.0-18.0); Mean Corp Hgb Conc. 35.7 g/dL (33.0-37.0); Mean Platelet Volume 10.7 fL (7.4-10.4); Platelet Count 106 10^3/uL (130-400); Red Blood Cell Count 3.13 10^6/uL (4.70-6.10); White Blood Cell Count 7.6 10^3/uL (4.8-10.8)
[2023-09-07 07:53] LABS: Blood Urea Nitrogen 48 mg/dl (9-20); Calcium 8.5 mg/dl (8.4-10.2); Carbon Dioxide 25 mmol/L (22-30); Chloride 107 mmol/L (98-107); Estimated Creatinine Clearance 53 ml/min; Glucose 167 mg/dl (70-99); Magnesium 2.3 mg/dl (1.6-2.3); Sodium 137 mmol/L (135-145); eGFR 52.64
[2023-09-07] MEDS: MIRALAX 17 GRAMS PO (08:26)
[2023-09-07] MEDS: ASPIR LOW (ENTERIC COATED) 81 MG PO (08:26)
[2023-09-07] MEDS: PROGRAF 3 MG PO ×2 (08:26→20:22)
[2023-09-07] MEDS: COLACE 100 MG PO ×2 (08:26→20:21)
[2023-09-07] MEDS: MYFORTIC DELAYED REL. 180 MG PO ×2 (08:26→20:22)
[2023-09-07] MEDS: DAKIN'S SOLUTION 0.125% 1/4 STRENGTH 473 ML TOPICAL (08:27)
--- NOTE | 2023-09-07 10:03 | W.PN.PUL.V3 ---
Today's Communication / Plan
-
Supplemental oxygen if needed
Incentive spirometry
Aspiration precautions
Cleared for proposed surgery
Pulmonary will sign off-please call with questions
Assessment
-
63-year-old male with multiple medical problems including liver and kidney transplantation, chronic renal failure with chronic urinary retention requiring TURP, chronic DVT not on anticoagulation, has IVC filter and pulmonary consulted for
preoperative pulmonary clearance 09/05/2023.
Assessment
Right heel wound-improved
Recent right hip fracture status post ORIF June 2023
Bladder outlet obstruction for possible TURP
Chronic DVT not on oral anticoagulant-has chronic IVC filter
Xgknrd-scybesgokg-knkzjidknt 9.3
Hyperglycemia
Conditions present prior to admission:
CAD/stents.
Diabetes.
Renal and liver transplantation 2021.
Chronic anemia.
Chronic thrombocytopenia.
Aortic stenosis-moderate
Diabetes.
History of hepatitis C/cirrhosis.
Chronic IVC filter.
Right hip fracture.
Former 5-pack-year smoker.
Plan
He continues to be stable from a pulmonary perspective
The patient continues to be cleared for proposed TURP from a pulmonary perspective
Incentive spirometry encouraged
Supplemental oxygen if needed-currently on room air
Aspiration precautions
Cardiology following
Has a history of stenosis aortic and coronary artery stenting
Heel pressure ulcer-diabetic foot wound-improving
Podiatry following-no need for surgical debridement
Cultures reviewed
Infectious disease following
Antibiotics per infectious disease
History of kidney and liver transplantation on immunosuppressive medications
Nephrology following-correspondence reviewed
Urology following-TURP 09/07/23
Hematology following-correspondence reviewed
Continue to follow hemoglobin
Transfuse if needed
Monitor blood sugar
Insulin supplementation as needed
Respiratory status stable-pulmonary will sign off-please call with questions
Reviewed with primary team, nursing, and cardiology
Diagnostic data:
Lower extremity ultrasound bilaterally 08/30/2023-no evidence for deep venous thrombosis in the right lower extremity, nonocclusive thrombus left femoral and popliteal veins
Echocardiogram 08/30/2023-EF 65-70%, moderate aortic stenosis, PA systolic 20-25
Subjective Data
-
Date of Service:
Date of Service: September 07, 2023
Chief Complaint: Pulmonary Follow Up and Dyspnea Follow Up
Subjective:
Did not sleep well, no complaints of shortness of breath
Review of Systems
General: Other (Per HPI)
Objective Data
Data Reviewed
Vital Signs / I&O:
Vital Signs
Temp Pulse Resp BP Pulse Ox
98.5 F 99 16 96/57 100
09/07/23 07:00 09/07/23 07:00 09/07/23 07:00 09/07/23 07:00 09/07/23 07:00
Intake and Output
09/06/23 09/07/23 09/08/23
06:59 06:59 06:59
Intake Total 1360 / 1360 1200 / 1200
Output Total 1900 / 1900 1600 / 1600
Balance -540 / -540 -400 / -400
SaO2: 100
Physical Exam
General: Respiratory Distress (nn) and Comfortable
HEENT: Normocephalic, Anicteric and Moist Mucous Membranes
Cardiovascular: Regular Rhythm
Respiratory: Wheeze (n), Crackles (n), Rhonchi (n), Non-Labored Respirations and Accessory Resp Muscle Use (n)
GI: Soft, Non Distended and Non Tender
Neurology: Awake, Alert and No Motor Deficits
Skin: Warm, Good Color, Cyanosis (n) and Jaundice (n)
Labs/Micro/Reports
Lab Data
09/07/23 06:26
09/07/23 06:26
--- NOTE | 2023-09-07 10:39 | W.PN.NEPH.PH ---
Today's Communication / Plan
-
TURP
Assessment/Plan
-
ROXY
R heel pressure ulcer
Left side Royator cuff inj
Coronary Artery Disease with stents
Left Kidney/Liver Transplant in 2021 for Cirrhosis secondary to Hepatitis C-at [facility] February 26, 2022, b/l 1.3
Diabetes Mellitus, Type II no history of diabetic neuropathy or retinopathy
Chronic back pain requiring chronic opioid dependence
DJD -C3-C4, C5-C6
Urine drug screen positive for fentanyl
Anemia
Thrombocytopenia
DVT
Plan:
follow BMP
continue tac/mmf
loklema MWF
TURP this afternoon
-
-
Date of Service: September 07, 2023
CC / HPI / ROS
-
Chief Complaint:
ROXY
History of Present Illness:
ROXY/Cr stable 1.5
K stable 5.0 with lokelma
plt stable
BP stable
rodrigues in
on immunosuppression for renal transplant
Review of Systems:
no CP/SOB
Labs
-
Labs:
WBC 7.6 10^3/uL (4.8-10.8) 09/07/23 06:26
RBC 3.13 10^6/uL (4.70-6.10) L 09/07/23 06:26
Hgb 9.4 g/dL (13.0-18.0) L 09/07/23 06:26
Hct 26.3 % (39.0-52.0) L 09/07/23 06:26
Plt Count 106 10^3/uL (130-400) L 09/07/23 06:26
Sodium 137 mmol/L (135-145) 09/07/23 06:26
Potassium 5.0 mmol/L (3.5-5.1) 09/07/23 06:26
Chloride 107 mmol/L (98-107) 09/07/23 06:26
Carbon Dioxide 25 mmol/L (22-30) 09/07/23 06:26
BUN 48 mg/dl (9-20) H 09/07/23 06:26
Creatinine 1.5 mg/dL (0.7-1.3) H 09/07/23 06:26
eGFR 52.64 09/07/23 06:26
Glucose 167 mg/dl (70-99) H 09/07/23 06:26
Calcium 8.5 mg/dl (8.4-10.2) 09/07/23 06:26
Albumin 2.6 g/dl (3.5-5.0) L 08/29/23 06:49
Physical Exam
-
Vital Signs:
Vital Signs
Temp Pulse Resp BP Pulse Ox
98.5 F 99 16 96/57 100
09/07/23 07:00 09/07/23 07:00 09/07/23 07:00 09/07/23 07:00 09/07/23 10:03
Cardiovascular:: Regular rate and rhythm
Respiratory:: Bilateral: CTA
Lung Excursion:: Normal
Abdomen:: Nontender and Soft
Bowel Sounds:: Normal
Extremity Edema:: None: Bilateral:
--- NOTE | 2023-09-07 11:28 | W.PN.CARDCBS ---
Addendum entered and electronically signed by Theodore Cerrato MD 09/07/23 13:15:
I saw and examined the patient.
The Professor Of Journalism's note was reviewed and I agree with the note.
Comment:
GEN: No distress, awake, Ox3
HEENT: supple, anicteric, mmm
LUNGS: CTA, no wheezes/rales
CV: Reg, S1/S2, 2/6 syst LSB, no gallop
ABD: soft, BS+, NT/ND
EXT: No edema
NEURO: Gross non-focal
SKIN: No rash
Plan:
Stable to proceed to the operating room today for TURP. He will be moderate but acceptable risk. He should continue his aspirin perioperatively.
ECG with normal sinus rhythm.
He will need cardiology follow-up as an outpatient with a history of coronary disease and stenting in February 2022.
Original Note:
Today's Communication / Plan
-
Plan for OR for TURP today
He is at increased risk for TURP surgery from cardiovascular standpoint but risk is not prohibitive and can proceed without further testing.
Will follow perioperatively
Impression / Plan
-
PCP: Geneva Lantigua
Brinell Tester: Denies ever seeing cardiology as outpt
Impression:
Presented 08/15/23 with right hip and heel pain
ROXY
Urinary retention with bladder outlet obstruction
Chronic left lower extremity DVT w/ IVC filter
Insulin-dependent diabetes
CAD with stents February 2022 [facility]
Aortic stenosis
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
Liver/kidney transplant 2021 [facility]
Chronic immunosuppression with tacrolimus and mycophenolate
Chronic anemia
Chronic thrombocytopenia
Right hip fracture s/p ORIF June 2023
Chronic opioid dependence
Echo 08/30/2023: EF 65 to 70%. Mildly dilated right ventricle with normal RV systolic function. Moderate aortic stenosis with peak/mean gradient 33/20 mmHg with EDI 1.0 cm�, PAP 20 to 25 mmhg
LE Art doppler 08/17/23: Normal study. Bilateral ankle and toe brachial indices within normal limits. Multiphasic waveforms from bilateral common femoral through popliteal arteries with no velocity elevation to suggest any significant stenosis.
Continuous Doppler waveforms of the dorsalis pedis and posterior tibial arteries also remain multiphasic.
Plan:
-Presented 08/15/1910/28/2023 with right heel and hip pain with concern for right heel cellulitis. Noted to have ROXY with acute urinary retention with concern for bladder outlet syndrome. planned for TURP however then found to have nonocclusive thrombus
of L femoral and popliteal veins. he has history of IVC filter. oncology following. patient refused OAC
-planned for TURP this afternoon.
-echo with results as above
-EKG NSR. review of tele overnight SR.
-Records have been requested from [facility] regarding prior cardiac stenting.
-He is at increased risk for TURP surgery from cardiovascular standpoint but risk is not prohibitive and can proceed without further testing.
-Will follow perioperatively
HPI 08/26/2023:
Patient is a 63-year-old male with past medical history significant for chronic left lower extremity DVT with IVC filter, insulin-dependent diabetes, coronary artery disease with stents, aortic stenosis, hepatitis C induced cirrhosis with subsequent
liver failure for which she underwent liver/kidney transplant in February [address] [facility], chronic opioid dependence and recent hip fracture June 2023 s/p ORIF who presented to emergency department 08/15/2023 with complaints of
hip pain as well as heel pain ulcer with concerns for cellulitis. Patient was noted to have ROXY on admission and found to have acute on chronic urinary retention. Patient has been requiring daily straight catheterizations and has finally agreed to
proceed with TURP. Cardiology is being asked to see patient for preoperative clearance given prior history of CAD.
Patient is a very poor historian. He reports he had several cardiac stents at [facility] in February 2022 several days prior to his kidney and liver transplant. He reports he never followed with cardiology after his discharge
and is only maintained on an aspirin 81 mg daily. He tells me he has not seen his family doctor in several years. He cannot tell me the name of his transplant team except that it is that [facility] in [place] and he sees him
every couple months. He reports prior to his hip fracture in June he was an active individual and walked 2-3 times a week without any concerning cardiac symptoms. Currently he denies chest pain, shortness of breath, dizziness, lightheadedness,
edema, orthopnea, palpitations or PND.
Progress Note - Brinell Tester
Subjective
Date of Service: September 07, 2023
No cardiac complaints overnight. States he did not sleep well.
Objective
Labs:
09/07/23 06:26
09/07/23 06:26
Labs
Hgb 9.4 g/dL (13.0-18.0) L 09/07/23 06:26
Hct 26.3 % (39.0-52.0) L 09/07/23 06:26
Plt Count 106 10^3/uL (130-400) L 09/07/23 06:26
APTT Cancelled 08/31/23 00:15
Sodium 137 mmol/L (135-145) 09/07/23 06:26
Potassium 5.0 mmol/L (3.5-5.1) 09/07/23 06:26
BUN 48 mg/dl (9-20) H 09/07/23 06:26
Creatinine 1.5 mg/dL (0.7-1.3) H 09/07/23 06:26
Glucose 167 mg/dl (70-99) H 09/07/23 06:26
Vital Signs and I&O:
Vital Signs
Temp Pulse Resp BP Pulse Ox
98.5 F 99 16 96/57 100
09/07/23 07:00 09/07/23 07:00 09/07/23 07:00 09/07/23 07:00 09/07/23 10:03
Vital Signs
Temp Pulse Resp BP Pulse Ox
98.5 F 99 16 96/57 100
09/07/23 07:00 09/07/23 07:00 09/07/23 07:00 09/07/23 07:00 09/07/23 10:03
Intake & Output
09/05/23 09/06/23 09/07/23 09/08/23
07:59 07:59 07:59 07:59
Intake Total 1320 / 1320 1360 / 1360 1200 / 1200
Output Total 2250 / 2250 1900 / 1900 1600 / 1600
Balance -930 / -930 -540 / -540 -400 / -400
Physical Exam
Physical Exam
GEN: No distress, awake, alert, oriented x3. chronically ill appearing
HEENT: supple, anicteric, mmm, eomi
LUNGS: CTA B/L, no wheezes/rales
CV: Reg, S1/S2, no murmur
EXT: No cyanosis, clubbing, edema
NEURO: Gross non-focal
SKIN: Warm, pink, dry. No rash. R foot with dressing c/d/i
--- NOTE | 2023-09-07 11:55 | W.PN.HOSP.TC ---
Today's Communication/Plan
-
for TURP today
Assessment / Plan
Assessment / Plan
A/P:
# Right heel pressure ulcer
# Diabetic Foot wound
arterial US normal
apprec podiatry, no need for surgical debridement
blood cultures negative, Wound cultures shows E. coli, Staph aureus, Strep pyogenes
Completed Abx course (broad spectrum -> Cephalexin x 7 days)
Wound care on board
# Chronic Moderate aortic stenosis.
# Hx of Kidney/liver transplant in 2021
# History of hepatitis C and liver cirrhosis
Continue tacrolimus and mycophenolate
Tacrolimus level is therapeutic
patient follows with [facility] and states he has an upcoming appointment within next month
# ROXY, resolved
# Acute on chronic urinary retention
# h/o BPH
pending blood work today.
Creatinine was at 1.5 yesterday, baseline at 1.2
Renal US of donor kidney: hydronephrosis + hydroureter
nephro on board
TURP was planned but canceled due to DVT found on lower extremity venous ultrasound.
d/w heme Dr Arthur 09/04, unclear exact risk of PE with current chronic DVT, but felt risk of progression to PE would be low in setting of IVC filter (despite it being old) and clot being chronic.
CT AP ordered preop, did no reveal anterior abdominal wall portosystemic venous collaterals, confirmed Inferior vena cava filter in place.
Consulted Card and Pulm for pre op clearances
Mejia placed 09/04 given persistent elevated post void residual volumes and straight cath became difficult
Now TURP planned for 09/06, NPO past midnight
# Remote lower extremity thrombus no clinical symptoms to suggest acuity
# Remote IVC, little protective effect against pulmonary embolus
US noted Nonocclusive thrombus in the left femoral and popliteal veins, difficult to differentiate acute versus chronic,
Patient refuses anticoagulation
Heme on board
# Lower Back pain
# Right Hip Pain
# Sciatica - description of pain traveling down lower back to groin/leg
appreciate ortho consult
X-rays of the right hip demonstrate a healed right hip fracture. Hardware is intact with no signs of loosening or failure.
X-rays of the right knee demonstrate mild degenerative changes with medial and lateral compartment chondrocalcinosis.
Oxycodone for pain control
took pt off of IV Dilaudid, will add low dose morphine for mod to severe pain
Trazodone 50 mg HS added to help with sleep
patient states he takes medical marijuana outside the hospital
# Normocytic anemia
# Pancytopenia, on two immunosuppressants s/p liver and kidney transplant
hemoglobin stable
# Muscle Spasms
likely Iron deficiency
Cyclobenzaprine
# IDDM
# Hypoglycemia
reduced Lantus from 14 to 7 units HS, reduced NovoLog from 8 to 5 units AC.
Would hold Lantus tonight while NPO
cover with ISS
# CAD
Continue aspirin
# Severe protein calorie malnutrition
BMI 23.3
DVT prophylaxis: subcu heparin
CODE STATUS: FULL CODE
Anticipated Discharge: > 48 hours
Subjective/Interval History
-
Date of Service: September 07, 2023
Objective Data
-
Labs:
Laboratory Results
09/07/23
06:26
WBC 7.6
Hgb 9.4 L
Hct 26.3 L
Plt Count 106 L
Sodium 137
Potassium 5.0
Chloride 107
Carbon Dioxide 25
BUN 48 H
Creatinine 1.5 H
Glucose 167 H
Calcium 8.5
Vital Signs:
Vital Signs
Temp Pulse Resp BP Pulse Ox
37.2 C 84 16 133/76 98
09/07/23 11:00 09/07/23 11:00 09/07/23 11:00 09/07/23 11:00 09/07/23 11:00
I&O
09/06/23 09/07/23 09/08/23
06:59 06:59 06:59
Intake Total 1360 / 1360 1200 / 1200
Output Total 1900 / 1900 1600 / 1600
Balance -540 / -540 -400 / -400
Review of Systems
-
Genitourinary: Reports Other (urine retention)
Physical Exam
-
General: Well Developed, Well Nourished and Conversant
HEENT: Normocephalic, Atraumatic and Moist Mucous Membranes
Respiratory: Clear to Auscultation and Non Labored Respirations; Negative Accessory Resp Muscle Use
Cardiac: Regular Rhythm, S1/S2 and Murmur
GI: Soft, Nontender and Nondistended; Negative Normal Bowel Sounds
Genito-urinary: Mejia
Musculoskeletal: No Clubbing, No Cyanosis and No Edema
Skin: Warm, Dry and Ulcers (right foot in wound dressing)
Neuro: Awake and Alert
Psych: Calm and Intact Judgement/Insight
Data Reviewed
-
Ultrasound: Report Reviewed by me
Labs: Labs Reviewed by me
[2023-09-07 13:23] LABS: Glucose - Point of Care 176 mg/dl (70-99)
[2023-09-07] MEDS: NOVOLOG FLEXPEN-HIGH RESISTANCE 2 UNITS SC (13:27)
--- NOTE | 2023-09-07 15:30 | W.IMMPOSTOP ---
Surgical Immed Post Op Note
-
Primary Surgeon: Alondrafer
Assisting Surgeon:
Pre-op Diagnosis: BPH, urinary retention
Post-op Diagnosis: BPH, urinary retention
Procedure Performed: TURP
Anesthesia Type: general
Specimen / Cultures: none
Estimated Blood Loss: 2cc
Complications: none
Operative Findings: obstructive prostate with chronically obstructed bladder
DESEAN smooth and without nodules
Unable to locate orifice of transplant ureter due to significant bladder trabeculation
[2023-09-07 15:51] LABS: Glucose - Point of Care 142 mg/dl (70-99)
[2023-09-07] MEDS: DILAUDID 0.5 MG IV (16:26)
--- NOTE | 2023-09-07 17:29 | PTCARENOTE ---
Pt arrived to [address] from PACU s/p TURP. Pt has Mejia in place, CBI infusing, draining peach colored urine. Pt oriented to call prasad and room, bed locked and in lowest position, call prasad within reach.
[2023-09-07 17:32] LABS: Glucose - Point of Care 202 mg/dl (70-99)
[2023-09-07] MEDS: NOVOLOG FLEXPEN 5 UNITS SC (17:32)
[2023-09-07] MEDS: ROXICODONE 5 MG PO (20:24)
[2023-09-07] MEDS: FLEXERIL 10 MG PO (20:24)
[2023-09-07] MEDS: FLOMAX 0.400000000000000022 MG PO (21:13)
[2023-09-07] MEDS: DESYREL 50 MG PO (21:13)
[2023-09-07 21:47] LABS: Glucose - Point of Care 250 mg/dl (70-99)
[2023-09-08] MEDS: MORPHINE SULFATE 1 MG IV ×2 (02:40→14:42)
[2023-09-08 03:15] VITALS: BP 107/58
[2023-09-08] MEDS: TYLENOL PO ×4 (05:15→17:22)
[2023-09-08 05:35] LABS: Hematocrit 24.9 % (39.0-52.0); Hemoglobin 8.7 g/dL (13.0-18.0); Mean Corp Hgb Conc. 34.9 g/dL (33.0-37.0); Mean Corpuscular Hgb 29.5 pg (27.0-31.0); Mean Corpuscular Volume 84.4 fL (80.0-94.0); Mean Platelet Volume 11.5 fL (7.4-10.4); Platelet Count 99 10^3/uL (130-400); Red Blood Cell Count 2.95 10^6/uL (4.70-6.10); Red Cell Dist. Width 15.5 % (11.5-14.5); White Blood Cell Count 9.2 10^3/uL (4.8-10.8)
[2023-09-08 06:04] LABS: Blood Urea Nitrogen 52 mg/dl (9-20); Calcium 8.2 mg/dl (8.4-10.2); Carbon Dioxide 20 mmol/L (22-30); Chloride 106 mmol/L (98-107); Estimated Creatinine Clearance 47 ml/min; Glucose 242 mg/dl (70-99); Magnesium 2.4 mg/dl (1.6-2.3); Potassium 5.2 mmol/L (3.5-5.1); Sodium 134 mmol/L (135-145)
[2023-09-08 07:25] VITALS: BP 98/52
[2023-09-08 08:37] LABS: Glucose - Point of Care 250 mg/dl (70-99)
[2023-09-08] MEDS: MIRALAX PO (08:50)
[2023-09-08] MEDS: MYFORTIC DELAYED REL. 180 MG PO ×2 (08:52→20:16)
[2023-09-08] MEDS: PROGRAF 3 MG PO ×2 (08:52→20:16)
[2023-09-08] MEDS: COLACE 100 MG PO ×2 (08:52→20:17)
[2023-09-08] MEDS: DAKIN'S SOLUTION 0.125% 1/4 STRENGTH 473 ML TOPICAL (08:52)
[2023-09-08] MEDS: ASPIR LOW (ENTERIC COATED) 81 MG PO (08:52)
[2023-09-08] MEDS: NOVOLOG FLEXPEN-HIGH RESISTANCE 7 UNITS SC (08:53)
[2023-09-08] MEDS: NOVOLOG FLEXPEN 5 UNITS SC ×2 (08:53→13:21)
--- NOTE | 2023-09-08 08:55 | W.PN.URO.CBU ---
Today's Communication / Plan
-
Rodrigues out
Trial of void with bladder scan
Assessment / Plan
-
63M with ROXY and moderate to large volume urinary retention with hydronephrosis of transplant kidney during admission for diabetic foot wound
- s/p TURP 09/08/23
- Rodrigues out this AM for trial of void and post void bladder scan
- Persistent mild fullness/hydronephrosis of transplant kidney despite rodrigues in place for 1 day, however may be due to large volume retention in days prior
- Recommend follow up ultrasound in 3-4 weeks to re-eval
Diagnosis
-
Date of Service: September 08, 2023
-
Patient Diagnosis:
BPH
Urinary retention
ROXY on CKD s/p kidney transplant
Post Op Day:
Subjective
-
No events, minimal discomfort
Objective
-
Vital Signs
Temp Pulse Resp BP Pulse Ox
99.3 F 103 16 98/52 100
09/08/23 07:25 09/08/23 07:25 09/08/23 07:25 09/08/23 07:25 09/08/23 07:25
Intake and Output
09/07/23 09/08/23 09/09/23
06:59 06:59 06:59
Intake Total 1200 / 1200 100 / 100
Output Total 1600 / 1600 300 / 300
Balance -400 / -400 -200 / -200
Intake:
Oral fluids 1200 / 1200
IV fluids (Total) 100 / 100
Normosol 100 / 100
Output:
Urine, Rodrigues 1600 / 1600
True Urine Output from CBI 300 / 300
Laboratory Results
09/08/23 04:34
09/08/23 04:34
Physical Exam
-
General - well developed, well nourished, no acute distress
Chest - clear
Abdomen - soft, non-tender
- rodrigues in place, urine clear
Skin - warm & dry with no rash
Neuro - AOx3, no motor deficits
[2023-09-08] MEDS: LOKELMA 10 GRAM PO (09:08)
[2023-09-08] MEDS: ROCEPHIN 1000 MG IV (09:09)
[2023-09-08] MEDS: STERILE WATER FOR INJECTION 10 ML IV (09:09)
[2023-09-08] MEDS: ROXICODONE 7.5 MG PO (09:14)
[2023-09-08] MEDS: SODIUM BICARBONATE 50 MEQ IV (09:42)
--- NOTE | 2023-09-08 10:12 | W.PN.CARDCBS ---
Addendum entered and electronically signed by Cole Hudson MD 09/08/23 17:56:
Now postop day 1 status post TURP, no complaints, lying in bed.
PMH: Liver renal transplant 2021 with history of hepatitis C, moderate aortic stenosis, CAD/PCI February 2022, left lower extremity DVT with IVC filter, diabetes, right hip fracture with ORIF June 2023, opioid dependence
PSH: As above
Allergies none
FH/SH: Reviewed, noncontributory
Home Meds reviewed
Current meds: Aspirin 81 mg a day mycophenolate, tacrolimus, Colace, MiraLAX, acetaminophen, tamsulosin, insulin, trazodone
Review of systems negative except as above
98/52, 139/79
Pulse 103, afebrile, chronically ill-appearing but no acute distress, head neck exam unremarkable lungs are clear cardiac exam is notable for an aortic stenosis murmur, abdomen benign, raymundo colored urine, no edema, neuro intact
hemoglobin 8.7, Platelets 99, BUN/creatinine 52 and 1.7, was 1.5
Impression:
ROXY
Urinary retention with bladder outlet obstruction, status post TURP 09/07/2023
Chronic left lower extremity DVT w/ IVC filter
Insulin-dependent diabetes
CAD with stents February 2022 [facility]
Aortic stenosis
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
Liver/kidney transplant 2021 [facility]
Chronic immunosuppression with tacrolimus and mycophenolate
Chronic anemia
Chronic thrombocytopenia
Right hip fracture s/p ORIF June 2023
Chronic opioid dependence
Echo 08/30/2023: EF 65 to 70%. Mildly dilated right ventricle with normal RV systolic function. Moderate aortic stenosis with peak/mean gradient 33/20 mmHg with EDI 1.0 cm�, PAP 20 to 25 mmhg
Plan:
Overall he is stable from a cardiac standpoint, continue aspirin.
Will check EKG
Increase activity, begin discharge planning
We will arrange for cardiac follow-up. He wishes to follow with our group. Will sign off, please call if questions.
Original Note:
Today's Communication / Plan
-
s/p TURP. continue post op care
continue asa
will arrange OP cardiac follow up
Impression / Plan
-
PCP: Geneva Lantigua
Communication Manager: Denies ever seeing cardiology as outpt
Impression:
Presented 08/15/23 with right hip and heel pain
ROXY
Urinary retention with bladder outlet obstruction
Chronic left lower extremity DVT w/ IVC filter
Insulin-dependent diabetes
CAD with stents February 2022 [facility]
Aortic stenosis
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
Liver/kidney transplant 2021 [facility]
Chronic immunosuppression with tacrolimus and mycophenolate
Chronic anemia
Chronic thrombocytopenia
Right hip fracture s/p ORIF June 2023
Chronic opioid dependence
Echo 08/30/2023: EF 65 to 70%. Mildly dilated right ventricle with normal RV systolic function. Moderate aortic stenosis with peak/mean gradient 33/20 mmHg with EDI 1.0 cm�, PAP 20 to 25 mmhg
LE Art doppler 08/17/23: Normal study. Bilateral ankle and toe brachial indices within normal limits. Multiphasic waveforms from bilateral common femoral through popliteal arteries with no velocity elevation to suggest any significant stenosis.
Continuous Doppler waveforms of the dorsalis pedis and posterior tibial arteries also remain multiphasic.
Plan:
-Presented 08/15/1910/28/2023 with right heel and hip pain with concern for right heel cellulitis. Noted to have ROXY with acute urinary retention with concern for bladder outlet syndrome. planned for TURP however then found to have nonocclusive thrombus
of L femoral and popliteal veins. he has history of IVC filter. oncology following. patient refused OAC
-s/p TURP 09/06
-feeling well this morning. states his rodrigues was just pulled
-in ST upon review of tele with HRs in 90-100s. BPs low but stable
-continue asa. hgb 8.7
-would consider addition of statin and BB as OP given prior CAD
-will arrange OP cardiac follow up given history of stenting and mod
HPI 08/26/2023:
Patient is a 63-year-old male with past medical history significant for chronic left lower extremity DVT with IVC filter, insulin-dependent diabetes, coronary artery disease with stents, aortic stenosis, hepatitis C induced cirrhosis with subsequent
liver failure for which she underwent liver/kidney transplant in February 2022 at [facility], chronic opioid dependence and recent hip fracture June 2023 s/p ORIF who presented to emergency department 08/15/2023 with complaints of
hip pain as well as heel pain ulcer with concerns for cellulitis. Patient was noted to have ROXY on admission and found to have acute on chronic urinary retention. Patient has been requiring daily straight catheterizations and has finally agreed to
proceed with TURP. Cardiology is being asked to see patient for preoperative clearance given prior history of CAD.
Patient is a very poor historian. He reports he had several cardiac stents at [facility] in February 2022 several days prior to his kidney and liver transplant. He reports he never followed with cardiology after his discharge
and is only maintained on an aspirin 81 mg daily. He tells me he has not seen his family doctor in several years. He cannot tell me the name of his transplant team except that it is that [facility] in [place] and he sees him
every couple months. He reports prior to his hip fracture in June he was an active individual and walked 2-3 times a week without any concerning cardiac symptoms. Currently he denies chest pain, shortness of breath, dizziness, lightheadedness,
edema, orthopnea, palpitations or PND.
Progress Note - Communication Manager
Subjective
Date of Service: September 08, 2023
Denies chest pain, shortness of breath. Feeling well status post TURP
Objective
Labs:
09/08/23 04:34
09/08/23 04:34
Labs
Hgb 8.7 g/dL (13.0-18.0) L 09/08/23 04:34
Hct 24.9 % (39.0-52.0) L 09/08/23 04:34
Plt Count 99 10^3/uL (130-400) L 09/08/23 04:34
APTT Cancelled 08/31/23 00:15
Sodium 134 mmol/L (135-145) L 09/08/23 04:34
Potassium 5.2 mmol/L (3.5-5.1) H 09/08/23 04:34
BUN 52 mg/dl (9-20) H 09/08/23 04:34
Creatinine 1.7 mg/dL (0.7-1.3) H 09/08/23 04:34
Glucose 242 mg/dl (70-99) H 09/08/23 04:34
Vital Signs and I&O:
Vital Signs
Temp Pulse Resp BP Pulse Ox
99.3 F 103 16 98/52 100
09/08/23 07:25 09/08/23 07:25 09/08/23 07:25 09/08/23 07:25 09/08/23 07:25
Vital Signs
Temp Pulse Resp BP Pulse Ox
99.3 F 103 16 98/52 100
09/08/23 07:25 09/08/23 07:25 09/08/23 07:25 09/08/23 07:25 09/08/23 07:25
Intake & Output
09/06/23 09/07/23 09/08/23 09/09/23
07:59 07:59 07:59 07:59
Intake Total 1360 / 1360 1200 / 1200 100 / 100
Output Total 1900 / 1900 1600 / 1600 300 / 300
Balance -540 / -540 -400 / -400 -200 / -200
Physical Exam
Physical Exam
GEN: No distress, awake, alert, oriented x3. appears brighter today
HEENT: supple, anicteric, mmm, eomi
LUNGS: CTA B/L, no wheezes/rales
CV: Reg, S1/S2, no murmur
EXT: No cyanosis, clubbing, edema
NEURO: Gross non-focal
SKIN: Warm, pink, dry. No rash.
--- NOTE | 2023-09-08 10:15 | CM ---
Had TURP yesterday.
Mejia to be removed and trial of voiding .
Pt has Medicare. SNF requested auth with [facility]. Awaiting [facility] response for auth.
Hx of housing insufficiency.
PLAN To [place] [facility] after auth obtained with [facility] and medically ready
--- NOTE | 2023-09-08 11:51 | W.PN.HOSP.TC ---
Today's Communication/Plan
-
see A/P
Assessment / Plan
Assessment / Plan
A/P:
# Right heel pressure ulcer
# Diabetic Foot wound
arterial US normal
apprec podiatry, no need for surgical debridement
blood cultures negative, Wound cultures shows E. coli, Staph aureus, Strep pyogenes
Completed Abx course (broad spectrum -> Cephalexin x 7 days)
Wound care on board
# Chronic Moderate aortic stenosis.
# Hx of Kidney/liver transplant in 2021
# History of hepatitis C and liver cirrhosis
Continue tacrolimus and mycophenolate
Tacrolimus level is therapeutic
patient follows with [facility] and states he has an upcoming appointment within next month
# ROXY, resolved
# Acute on chronic urinary retention
# h/o BPH
pending blood work today.
Creatinine was at 1.5 yesterday, baseline at 1.2
Renal US of donor kidney: hydronephrosis + hydroureter
nephro on board
TURP was planned but canceled due to DVT found on lower extremity venous ultrasound.
d/w heme Dr Arthur 09/04, unclear exact risk of PE with current chronic DVT, but felt risk of progression to PE would be low in setting of IVC filter (despite it being old) and clot being chronic.
CT AP ordered preop, did no reveal anterior abdominal wall portosystemic venous collaterals, confirmed Inferior vena cava filter in place.
Consulted Card and Pulm for pre op clearances
Mejia placed 09/04
s/p TURP 09/06
Mejia out for trial of void and post void bladder scan
Uro Recommend follow up ultrasound in 3-4 weeks to re-eval
# Remote lower extremity thrombus no clinical symptoms to suggest acuity
# Remote IVC, little protective effect against pulmonary embolus
US noted Nonocclusive thrombus in the left femoral and popliteal veins, difficult to differentiate acute versus chronic,
Patient refuses anticoagulation
Heme on board
# Lower Back pain
# Right Hip Pain
# Sciatica - description of pain traveling down lower back to groin/leg
appreciate ortho consult
X-rays of the right hip demonstrate a healed right hip fracture. Hardware is intact with no signs of loosening or failure.
X-rays of the right knee demonstrate mild degenerative changes with medial and lateral compartment chondrocalcinosis.
Oxycodone for pain control
took pt off of IV Dilaudid, added low dose morphine for mod to severe pain
Trazodone 50 mg HS added to help with sleep
patient states he takes medical marijuana outside the hospital
# Normocytic anemia
# Pancytopenia, on two immunosuppressants s/p liver and kidney transplant
hemoglobin stable
# Muscle Spasms
likely Iron deficiency
Cyclobenzaprine
# IDDM
# Hypoglycemia
reduced Lantus from 14 to 7 units HS, reduced NovoLog from 8 to 5 units AC.
cover with ISS
# CAD
Continue aspirin
# Severe protein calorie malnutrition
BMI 23.3
DVT prophylaxis: subcu heparin
CODE STATUS: FULL CODE
Anticipated Discharge: 24 - 48 hours
Subjective/Interval History
-
Date of Service: September 08, 2023
Objective Data
-
Labs:
Laboratory Results
09/08/23
04:34
WBC 9.2
Hgb 8.7 L
Hct 24.9 L
Plt Count 99 L
Sodium 134 L
Potassium 5.2 H
Chloride 106
Carbon Dioxide 20 L
BUN 52 H
Creatinine 1.7 H
Glucose 242 H
Calcium 8.2 L
Vital Signs:
Vital Signs
Temp Pulse Resp BP Pulse Ox
37.4 C 103 16 98/52 100
09/08/23 07:25 09/08/23 07:25 09/08/23 07:25 09/08/23 07:25 09/08/23 07:25
I&O
09/07/23 09/08/23 09/09/23
06:59 06:59 06:59
Intake Total 1200 / 1200 100 / 100
Output Total 1600 / 1600 300 / 300
Balance -400 / -400 -200 / -200
Review of Systems
-
All other systems: Reviewed and negative
Physical Exam
-
General: Well Developed, Well Nourished and Conversant
HEENT: Normocephalic, Atraumatic and Moist Mucous Membranes
Respiratory: Clear to Auscultation and Non Labored Respirations; Negative Accessory Resp Muscle Use
Cardiac: Regular Rhythm, S1/S2 and Murmur
GI: Soft, Nontender and Nondistended; Negative Normal Bowel Sounds
Genito-urinary: Negative Mejia
Musculoskeletal: No Clubbing, No Cyanosis and No Edema
Skin: Warm, Dry and Ulcers (right foot in wound dressing)
Neuro: Awake and Alert
Psych: Calm and Intact Judgement/Insight
Data Reviewed
-
Ultrasound: Report Reviewed by me
Labs: Labs Reviewed by me
[2023-09-08 12:03] LABS: Glucose - Point of Care 187 mg/dl (70-99)
--- NOTE | 2023-09-08 13:20 | W.PN.NEPH.PH ---
Today's Communication / Plan
-
- continue to trend BMPs
Assessment/Plan
-
ROXY
R heel pressure ulcer
Left side Royator cuff inj
Coronary Artery Disease with stents
Left Kidney/Liver Transplant in 2021 for Cirrhosis secondary to Hepatitis C-at [facility] February 26, 2022, b/l 1.3
Diabetes Mellitus, Type II no history of diabetic neuropathy or retinopathy
Chronic back pain requiring chronic opioid dependence
DJD -C3-C4, C5-C6
Urine drug screen positive for fentanyl
Anemia
Thrombocytopenia
DVT
Plan:
s/p TURP on 09/06
Cr bump to 1.7, likely post operative in the setting of hemodynamic shifts
Rodrigues d/c'd this AM, but patient had not voided yet
follow BMP
continue tac/mmf
loklema MWF
-
-
Date of Service: September 08, 2023
CC / HPI / ROS
-
Chief Complaint:
ROXY
History of Present Illness:
ROXY/Cr stable 1.7
K stable 5.2 with lokelma
plt stable
BP soft
rodrigues out
on immunosuppression for renal transplant
Review of Systems:
no CP/SOB
Labs
-
Labs:
WBC 9.2 10^3/uL (4.8-10.8) 09/08/23 04:34
RBC 2.95 10^6/uL (4.70-6.10) L 09/08/23 04:34
Hgb 8.7 g/dL (13.0-18.0) L 09/08/23 04:34
Hct 24.9 % (39.0-52.0) L 09/08/23 04:34
Plt Count 99 10^3/uL (130-400) L 09/08/23 04:34
Sodium 134 mmol/L (135-145) L 09/08/23 04:34
Potassium 5.2 mmol/L (3.5-5.1) H 09/08/23 04:34
Chloride 106 mmol/L (98-107) 09/08/23 04:34
Carbon Dioxide 20 mmol/L (22-30) L 09/08/23 04:34
BUN 52 mg/dl (9-20) H 09/08/23 04:34
Creatinine 1.7 mg/dL (0.7-1.3) H 09/08/23 04:34
eGFR 45.30 09/08/23 04:34
Glucose 242 mg/dl (70-99) H 09/08/23 04:34
Calcium 8.2 mg/dl (8.4-10.2) L 09/08/23 04:34
Albumin 2.6 g/dl (3.5-5.0) L 08/29/23 06:49
Physical Exam
-
Vital Signs:
Vital Signs
Temp Pulse Resp BP Pulse Ox
99.3 F 103 16 98/52 100
09/08/23 07:25 09/08/23 07:25 09/08/23 07:25 09/08/23 07:25 09/08/23 07:25
Cardiovascular:: Regular rate and rhythm
Respiratory:: Bilateral: CTA
Lung Excursion:: Normal
Abdomen:: Nontender and Soft
Bowel Sounds:: Normal
Extremity Edema:: None: Bilateral:
Rodrigues Catheter: No
[2023-09-08] MEDS: NOVOLOG FLEXPEN-HIGH RESISTANCE 2 UNITS SC (13:21)
--- NOTE | 2023-09-08 14:30 | WOUNDNOTE ---
[facility] RN Note: Patient's R lateral posterior heel wound pink with scant yellow fibrin, moderate yellow/hoover drainage, mild periwound maceration. Patient is mobile. Instructed patient consistent heel pressure measures. Laina montemayor applied RLE. He
stated he didn't need one for LLE. Air chair cushion given to help off load heels d/t he bends his knees in bed. Current wound care appropriate. Dressing changed R heel. Patient declined sacral skin assessment; he stated 'it's fine'.
[2023-09-08 15:00] VITALS: BP 148/73
--- NOTE | 2023-09-08 16:08 | PTCARENOTE ---
Measured amount 50 cc. Patient peed in toilet unmeasurable amount and patient flushed toilet prior to staff seeing urine amount. Bladder scanned patient PVR for 356.
[2023-09-08] MEDS: NOVOLOG FLEXPEN-HIGH RESISTANCE 1 UNITS SC (17:00)
[2023-09-08 17:14] LABS: Glucose - Point of Care 135 mg/dl (70-99)
[2023-09-08] MEDS: NOVOLOG FLEXPEN-HIGH RESISTANCE SC (17:22)
[2023-09-08] MEDS: NOVOLOG FLEXPEN SC (17:23)
[2023-09-08] MEDS: ROXICODONE 5 MG PO (18:11)
--- NOTE | 2023-09-08 21:00 | PTCARENOTE ---
Pt bladder scanned PVR 352 ml. Pt contiues with frequency only voiding between 25-50ml tea colored urine each time. Pt denies any pain or discomfort.
[2023-09-08 21:27] LABS: Glucose - Point of Care 190 mg/dl (70-99)
[2023-09-08] MEDS: FLOMAX 0.400000000000000022 MG PO (21:32)
[2023-09-08] MEDS: DESYREL 50 MG PO (21:32)
[2023-09-08] MEDS: LANTUS 0.0700000000000000067 UNITS SC (21:32)
[2023-09-08 23:34] VITALS: BP 134/74
[2023-09-09] MEDS: TYLENOL PO ×4 (00:20→17:15)
[2023-09-09] MEDS: ROXICODONE 5 MG PO ×4 (01:11→20:20)
[2023-09-09] MEDS: MORPHINE SULFATE 1 MG IV (03:14)
[2023-09-09 05:42] LABS: Hematocrit 24.9 % (39.0-52.0); Hemoglobin 8.8 g/dL (13.0-18.0); Mean Corp Hgb Conc. 35.3 g/dL (33.0-37.0); Mean Corpuscular Hgb 29.8 pg (27.0-31.0); Mean Corpuscular Volume 84.4 fL (80.0-94.0); Mean Platelet Volume 11.3 fL (7.4-10.4); Platelet Count 91 10^3/uL (130-400); Red Blood Cell Count 2.95 10^6/uL (4.70-6.10); Red Cell Dist. Width 15.4 % (11.5-14.5); White Blood Cell Count 8.9 10^3/uL (4.8-10.8)
[2023-09-09 06:17] LABS: Blood Urea Nitrogen 44 mg/dl (9-20); Calcium 8.3 mg/dl (8.4-10.2); Carbon Dioxide 23 mmol/L (22-30); Chloride 105 mmol/L (98-107); Estimated Creatinine Clearance 53 ml/min; Glucose 166 mg/dl (70-99); Magnesium 2.2 mg/dl (1.6-2.3); Potassium 4.8 mmol/L (3.5-5.1); Sodium 134 mmol/L (135-145); eGFR 52.64
[2023-09-09 06:59] LABS: Glucose - Point of Care 185 mg/dl (70-99)
[2023-09-09 07:17] VITALS: BP 139/81
[2023-09-09] MEDS: PROGRAF 3 MG PO ×2 (08:16→20:15)
[2023-09-09] MEDS: ASPIR LOW (ENTERIC COATED) 81 MG PO (08:16)
[2023-09-09] MEDS: COLACE 100 MG PO ×2 (08:16→20:15)
[2023-09-09] MEDS: MYFORTIC DELAYED REL. 180 MG PO ×2 (08:16→20:15)
[2023-09-09] MEDS: NOVOLOG FLEXPEN-HIGH RESISTANCE 2 UNITS SC ×3 (08:17→17:47)
[2023-09-09] MEDS: NOVOLOG FLEXPEN 5 UNITS SC ×3 (09:17→17:30)
[2023-09-09] MEDS: DAKIN'S SOLUTION 0.125% 1/4 STRENGTH 473 ML TOPICAL (09:19)
[2023-09-09] MEDS: MIRALAX 17 GRAMS PO (09:19)
--- NOTE | 2023-09-09 10:34 | W.PN.URO.CBU ---
Today's Communication / Plan
-
Replace rodrigues
Trial of void in about 1 week
Assessment / Plan
-
63M with ROXY and moderate to large volume urinary retention with hydronephrosis of transplant kidney during admission for diabetic foot wound
- s/p TURP 09/08/23
- Persistent retention with PVR 350cc in trial of void - frequent small volume voids with inadequate emptying
- Replace rodrigues catheter and will maintain for about 1 week before repeat trial of void
- Persistent mild fullness/hydronephrosis of transplant kidney despite rodrigues in place for 1 day prior to TURP, however may be due to large volume retention in days prior
- Recommend follow up ultrasound in 3-4 weeks to re-eval
Diagnosis
-
Date of Service: September 09, 2023
-
Patient Diagnosis:
BPH
Urinary retention
ROXY on CKD s/p kidney transplant
Post Op Day:
Subjective
-
Poor emptying since catheter removal, PVRs around 350cc
Frequent small volume voids
Objective
-
Vital Signs
Temp Pulse Resp BP Pulse Ox
98.9 F 103 19 139/81 99
09/09/23 07:17 09/09/23 07:17 09/09/23 07:17 09/09/23 07:17 09/09/23 07:17
Intake and Output
09/08/23 09/09/23 09/10/23
06:59 06:59 06:59
Intake Total 100 / 100 1140 / 1140
Output Total 300 / 300 200 / 200
Balance -200 / -200 940 / 940
Intake:
Oral fluids 1140 / 1140
IV fluids (Total) 100 / 100
Normosol 100 / 100
Output:
Urine, Voided 200 / 200
True Urine Output from [facility] 300 / 300
Other:
Number of approximated SMALL 1
amounts of urine
Laboratory Results
09/09/23 04:44
09/09/23 04:44
Physical Exam
-
General - well developed, well nourished, no acute distress
Chest - clear bilaterally
Abdomen - soft, non-tender
Skin - warm & dry with no rash
[2023-09-09 12:09] LABS: Glucose - Point of Care 194 mg/dl (70-99)
--- NOTE | 2023-09-09 13:42 | W.PN.HOSP.TC ---
Today's Communication/Plan
-
dispo planning to SNF
Assessment / Plan
Assessment / Plan
A/P:
# Right heel pressure ulcer
# Diabetic Foot wound
arterial US normal
apprec podiatry, no need for surgical debridement
blood cultures negative, Wound cultures shows E. coli, Staph aureus, Strep pyogenes
Completed Abx course (broad spectrum -> Cephalexin x 7 days)
Wound care on board
# Chronic Moderate aortic stenosis.
# Hx of Kidney/liver transplant in 2021
# History of hepatitis C and liver cirrhosis
Continue tacrolimus and mycophenolate
Tacrolimus level is therapeutic
patient follows with [facility] and states he has an upcoming appointment within next month
# ROXY on CKD stage 3, ROXY has resolved
# Acute on chronic urinary retention
# h/o BPH
Creatinine today at 1.5, at baseline
Renal US of donor kidney: hydronephrosis + hydroureter
nephro on board
TURP was initially planned but canceled due to DVT found on lower extremity venous ultrasound.
Case was discussed with heme.
Pt also seen by Taras and Sanchez for preop clearance.
Pt underwent TURP by Uro 09/06
Rodrigues was replaced 09/08 due to failed voiding trial
Uro Recommend to cont rodrigues for 1 week before repeating TOV
# Remote lower extremity thrombus no clinical symptoms to suggest acuity
# Remote IVC, little protective effect against pulmonary embolus
US noted Nonocclusive thrombus in the left femoral and popliteal veins, difficult to differentiate acute versus chronic,
Patient refuses anticoagulation
Heme on board
# Lower Back pain
# Right Hip Pain
# Sciatica - description of pain traveling down lower back to groin/leg
appreciate ortho consult
X-rays of the right hip demonstrate a healed right hip fracture. Hardware is intact with no signs of loosening or failure.
X-rays of the right knee demonstrate mild degenerative changes with medial and lateral compartment chondrocalcinosis.
Oxycodone for pain control
took off IV Dilaudid, cont low dose morphine for mod to severe pain
Trazodone 50 mg HS added to help with sleep
patient states he takes medical marijuana outside the hospital
# Normocytic anemia
# Pancytopenia, on two immunosuppressants s/p liver and kidney transplant
hemoglobin stable
# Muscle Spasms
likely Iron deficiency
Cyclobenzaprine
# IDDM
# Hypoglycemia
Cont Lantus at 7 units HS, and NovoLog at 5 units AC.
cover with ISS
# CAD
Continue aspirin
# Severe protein calorie malnutrition
BMI 23.3
DVT prophylaxis: subcu heparin
CODE STATUS: FULL CODE
Dispo: SNF
DW CM
Anticipated Discharge: 24 - 48 hours
Subjective/Interval History
-
Date of Service: September 09, 2023
Objective Data
-
Labs:
Laboratory Results
09/09/23
04:44
WBC 8.9
Hgb 8.8 L
Hct 24.9 L
Plt Count 91 L
Sodium 134 L
Potassium 4.8
Chloride 105
Carbon Dioxide 23
BUN 44 H
Creatinine 1.5 H
Glucose 166 H
Calcium 8.3 L
Vital Signs:
Vital Signs
Temp Pulse Resp BP Pulse Ox
37.2 C 103 19 139/81 99
09/09/23 07:17 09/09/23 07:17 09/09/23 07:17 09/09/23 07:17 09/09/23 07:17
I&O
09/08/23 09/09/23 09/10/23
06:59 06:59 06:59
Intake Total 100 / 100 1140 / 1140 480 / 480
Output Total 300 / 300 200 / 200 200 / 200
Balance -200 / -200 940 / 940 280 / 280
Review of Systems
-
All other systems: Reviewed and negative
Physical Exam
-
General: Well Developed, Well Nourished and Conversant
HEENT: Normocephalic, Atraumatic and Moist Mucous Membranes
Respiratory: Clear to Auscultation and Non Labored Respirations; Negative Accessory Resp Muscle Use
Cardiac: Regular Rhythm, S1/S2 and Murmur
GI: Soft, Nontender and Nondistended; Negative Normal Bowel Sounds
Genito-urinary: Negative Rodrigues
Musculoskeletal: No Clubbing, No Cyanosis and No Edema
Skin: Warm, Dry and Ulcers (right foot in wound dressing)
Neuro: Awake and Alert
Psych: Calm and Intact Judgement/Insight
Data Reviewed
-
Ultrasound: Report Reviewed by me
Labs: Labs Reviewed by me
[2023-09-09 15:23] VITALS: BP 142/77
[2023-09-09 17:06] LABS: Glucose - Point of Care 169 mg/dl (70-99)
[2023-09-09 21:37] LABS: Glucose - Point of Care 197 mg/dl (70-99)
[2023-09-09] MEDS: FLOMAX 0.400000000000000022 MG PO (22:38)
[2023-09-09] MEDS: LANTUS 0.0700000000000000067 UNITS SC (22:38)
[2023-09-09] MEDS: DESYREL 50 MG PO (22:38)
[2023-09-09 23:00] VITALS: BP 129/69
[2023-09-10] MEDS: ROXICODONE 5 MG PO ×4 (00:54→20:21)
[2023-09-10] MEDS: TYLENOL PO ×5 (01:16→23:06)
[2023-09-10] MEDS: MORPHINE SULFATE 1 MG IV ×2 (03:13→16:14)
[2023-09-10 05:24] VITALS: BMI 22.9
[2023-09-10 06:25] LABS: Hematocrit 24.2 % (39.0-52.0); Hemoglobin 8.5 g/dL (13.0-18.0); Mean Corp Hgb Conc. 35.1 g/dL (33.0-37.0); Mean Corpuscular Hgb 29.2 pg (27.0-31.0); Mean Corpuscular Volume 83.2 fL (80.0-94.0); Mean Platelet Volume 10.8 fL (7.4-10.4); Platelet Count 101 10^3/uL (130-400); Red Blood Cell Count 2.91 10^6/uL (4.70-6.10); Red Cell Dist. Width 15.3 % (11.5-14.5)
[2023-09-10 06:50] LABS: Blood Urea Nitrogen 39 mg/dl (9-20); Calcium 8.3 mg/dl (8.4-10.2); Carbon Dioxide 25 mmol/L (22-30); Chloride 107 mmol/L (98-107); Estimated Creatinine Clearance 57 ml/min; Glucose 143 mg/dl (70-99); Potassium 4.8 mmol/L (3.5-5.1); Sodium 134 mmol/L (135-145); eGFR 57.18
[2023-09-10 07:52] VITALS: BP 77/54
[2023-09-10] MEDS: MIRALAX PO (07:57)
[2023-09-10] MEDS: MYFORTIC DELAYED REL. 180 MG PO ×2 (07:57→20:12)
[2023-09-10] MEDS: COLACE 100 MG PO ×2 (07:57→20:12)
[2023-09-10] MEDS: PROGRAF 3 MG PO ×2 (07:57→20:12)
[2023-09-10] MEDS: ASPIR LOW (ENTERIC COATED) 81 MG PO (07:57)
[2023-09-10] MEDS: DAKIN'S SOLUTION 0.125% 1/4 STRENGTH 473 ML TOPICAL (07:57)
[2023-09-10] MEDS: NOVOLOG FLEXPEN-HIGH RESISTANCE 2 UNITS SC ×2 (08:01→17:52)
[2023-09-10] MEDS: NOVOLOG FLEXPEN 5 UNITS SC (08:01)
[2023-09-10 08:02] LABS: Glucose - Point of Care 158 mg/dl (70-99)
[2023-09-10 08:30] VITALS: BP 103/70
--- NOTE | 2023-09-10 11:45 | W.PN.URO.CBU ---
Today's Communication / Plan
-
Maintain rodrigues
Continue tamsulosin at discharge
Outpatient trial of void in 1 week
Assessment / Plan
-
63M with ROXY and moderate to large volume urinary retention with hydronephrosis of transplant kidney during admission for diabetic foot wound
- s/p TURP 09/07/23
- Persistent retention with PVR 350cc in trial of void - frequent small volume voids with inadequate emptying
- Rodrigues replaced 09/08 with 800cc output
- Persistent retention may be due to post op inflammation vs underlying bladder dysfunction that was not able to be tested for as inpatient. Recommend rodrigues remain in place for 1 week before outpatient trial of void and further follow up
- Continue tamsulosin
- Recommend follow up ultrasound in 3-4 weeks to re-eval hydronephrosis of transplant kidney
- Stable for discharge from urology standpoint
Diagnosis
-
Date of Service: September 10, 2023
-
Patient Diagnosis:
BPH
Urinary retention
ROXY on CKD s/p kidney transplant
s/p TURP 09/06
Post Op Day:
Subjective
-
rodrigues replaced due to persistent retention
Objective
-
Vital Signs
Temp Pulse Resp BP Pulse Ox
99.1 F 99 16 103/70 94
09/10/23 07:52 09/10/23 07:52 09/10/23 07:52 09/10/23 08:30 09/10/23 08:00
Intake and Output
09/09/23 09/10/23 09/11/23
06:59 06:59 06:59
Intake Total 1140 / 1140 2160 / 2160
Output Total 200 / 200 2970 / 2970
Balance 940 / 940 -810 / -810
Intake:
Oral fluids 1140 / 1140 2160 / 2160
Output:
Urine, Rodrigues 2319 / 2319
Urine, Voided 200 / 200 650 / 650
Other:
Number of approximated SMALL 1 2
amounts of urine
Laboratory Results
09/10/23 05:45
09/10/23 05:45
Physical Exam
-
General - well developed, well nourished, no acute distress
Chest - clear bilaterally
Abdomen - soft, non-tender
- rodrigues in place
Skin - warm & dry with no rash
Neuro - AOx3, no motor deficits
Extremities - no clubbing, no cyanosis, no edema
[2023-09-10 11:56] LABS: Glucose - Point of Care 209 mg/dl (70-99)
--- NOTE | 2023-09-10 12:07 | W.PN.HOSP.TC ---
Today's Communication/Plan
-
for SNF
Assessment / Plan
Assessment / Plan
A/P:
# Right heel pressure ulcer
# Diabetic Foot wound
arterial US normal
apprec podiatry, no need for surgical debridement
blood cultures negative, Wound cultures shows E. coli, Staph aureus, Strep pyogenes
Completed Abx course (broad spectrum -> Cephalexin x 7 days)
Wound care on board
# Chronic Moderate aortic stenosis.
# Hx of Kidney/liver transplant in 2021
# History of hepatitis C and liver cirrhosis
Continue tacrolimus and mycophenolate
Tacrolimus level is therapeutic
patient follows with [facility] and states he has an upcoming appointment within next month
# ROXY on CKD stage 3, ROXY has resolved
# Acute on chronic urinary retention
# h/o BPH
Creatinine today at 1.4, at baseline
Renal US of donor kidney: hydronephrosis + hydroureter
nephro on board
TURP was initially planned but canceled due to DVT found on lower extremity venous ultrasound.
Case was discussed with black.
Pt also seen by Taryn for preop clearance.
Pt underwent TURP by Uro 09/06 and rodrigues was placed post-op
Failed voiding trial, Rodrigues was replaced 09/08
Uro Recommend to cont rodrigues for 1 week before repeating TOV which would be outpt
# Remote lower extremity thrombus no clinical symptoms to suggest acuity
# Remote IVC, little protective effect against pulmonary embolus
US noted Nonocclusive thrombus in the left femoral and popliteal veins, difficult to differentiate acute versus chronic,
Patient refuses anticoagulation
Heme on board
# Lower Back pain, chronic
# Right Hip Pain
# Sciatica - description of pain traveling down lower back to groin/leg
appreciate ortho consult
X-rays of the right hip demonstrate a healed right hip fracture. Hardware is intact with no signs of loosening or failure.
X-rays of the right knee demonstrate mild degenerative changes with medial and lateral compartment chondrocalcinosis.
Cont Tylenol ATC, low dose oxycodone 5 mg PRN, add lidocaine patch, morphine IV for severe pain
Trazodone 50 mg HS added to help with sleep
patient states he takes medical marijuana outside the hospital
# Normocytic anemia
# Pancytopenia, on two immunosuppressants s/p liver and kidney transplant
hemoglobin stable
# Muscle Spasms
Cyclobenzaprine PRN
# IDDM
# Hypoglycemia
Cont Lantus at 7 units HS,
adjust NovoLog to 7 units AC.
cover with ISS
# CAD
Continue aspirin
# Severe protein calorie malnutrition
BMI 23.3
DVT prophylaxis: subcu heparin
CODE STATUS: FULL CODE
Dispo: SNF
DW RN
Anticipated Discharge: Within 24 hours
Subjective/Interval History
-
Date of Service: September 10, 2023
Objective Data
-
Labs:
Laboratory Results
09/10/23
05:45
WBC 7.0
Hgb 8.5 L
Hct 24.2 L
Plt Count 101 L
Sodium 134 L
Potassium 4.8
Chloride 107
Carbon Dioxide 25
BUN 39 H
Creatinine 1.4 H
Glucose 143 H
Calcium 8.3 L
Vital Signs:
Vital Signs
Temp Pulse Resp BP Pulse Ox
37.3 C 99 16 103/70 94
09/10/23 07:52 09/10/23 07:52 09/10/23 07:52 09/10/23 08:30 09/10/23 08:00
I&O
09/09/23 09/10/23 09/11/23
06:59 06:59 06:59
Intake Total 1140 / 1140 2160 / 2160
Output Total 200 / 200 2970 / 2970
Balance 940 / 940 -810 / -810
Review of Systems
-
All other systems: Reviewed and negative
Physical Exam
-
General: Well Developed, Well Nourished, No Apparent Distress and Conversant
HEENT: Normocephalic, Atraumatic and Moist Mucous Membranes
Respiratory: Clear to Auscultation and Non Labored Respirations; Negative Accessory Resp Muscle Use
Cardiac: Regular Rhythm, S1/S2 and Murmur
GI: Soft, Nontender and Nondistended; Negative Normal Bowel Sounds
Genito-urinary: Rodrigues
Musculoskeletal: No Clubbing, No Cyanosis and No Edema
Skin: Warm, Dry and Ulcers (right foot in wound dressing)
Neuro: Awake and Alert
Psych: Calm and Intact Judgement/Insight
Data Reviewed
-
Ultrasound: Report Reviewed by me
Labs: Labs Reviewed by me
[2023-09-10] MEDS: NOVOLOG FLEXPEN SC (12:13)
[2023-09-10] MEDS: NOVOLOG FLEXPEN-HIGH RESISTANCE SC (12:26)
[2023-09-10] MEDS: NOVOLOG FLEXPEN 7 UNITS SC ×2 (12:32→17:51)
[2023-09-10] MEDS: NOVOLOG FLEXPEN-HIGH RESISTANCE 4 UNITS SC (12:33)
[2023-09-10] MEDS: LIDOCAINE 4% PATCH TOPICAL (12:33)
--- NOTE | 2023-09-10 12:35 | W.PN.NEPH.PH ---
Today's Communication / Plan
-
- trend BMPs
Assessment/Plan
-
ROXY
R heel pressure ulcer
Left side Royator cuff inj
Coronary Artery Disease with stents
Left Kidney/Liver Transplant in 2021 for Cirrhosis secondary to Hepatitis C-at [facility] February 26, 2022, b/l 1.3
Diabetes Mellitus, Type II no history of diabetic neuropathy or retinopathy
Chronic back pain requiring chronic opioid dependence
DJD -C3-C4, C5-C6
Urine drug screen positive for fentanyl
Anemia
Thrombocytopenia
DVT
Plan:
s/p TURP on 09/06
Cr improved to 1.4, did have a bump immediately post op
Rodrigues re inserted after being unable to void post operatively
per urology TOV as outpatient in 1 week
persistent hydro noted, likely repeat ultrasound in 3-4 weeks of transplanted kidney
follow BMP
continue tac/mmf
loklema MWF
-
-
Date of Service: September 10, 2023
CC / HPI / ROS
-
Chief Complaint:
ROXY
History of Present Illness:
ROXY/Cr stable 1.4
K improved to 4.8
plt stable
BP soft
rodrigues out
on immunosuppression for renal transplant
Review of Systems:
no CP/SOB
Labs
-
Labs:
WBC 7.0 10^3/uL (4.8-10.8) 09/10/23 05:45
RBC 2.91 10^6/uL (4.70-6.10) L 09/10/23 05:45
Hgb 8.5 g/dL (13.0-18.0) L 09/10/23 05:45
Hct 24.2 % (39.0-52.0) L 06/02/24 05:45
Plt Count 101 10^3/uL (130-400) L 09/10/23 05:45
Sodium 134 mmol/L (135-145) L 09/10/23 05:45
Potassium 4.8 mmol/L (3.5-5.1) 09/10/23 05:45
Chloride 107 mmol/L (98-107) 09/10/23 05:45
Carbon Dioxide 25 mmol/L (22-30) 09/10/23 05:45
BUN 39 mg/dl (9-20) H 09/10/23 05:45
Creatinine 1.4 mg/dL (0.7-1.3) H 09/10/23 05:45
eGFR 57.18 09/10/23 05:45
Glucose 143 mg/dl (70-99) H 09/10/23 05:45
Calcium 8.3 mg/dl (8.4-10.2) L 09/10/23 05:45
Albumin 2.6 g/dl (3.5-5.0) L 08/29/23 06:49
Physical Exam
-
Vital Signs:
Vital Signs
Temp Pulse Resp BP Pulse Ox
99.1 F 99 16 103/70 94
09/10/23 07:52 09/10/23 07:52 09/10/23 07:52 09/10/23 08:30 09/10/23 08:00
Cardiovascular:: Regular rate and rhythm
Respiratory:: Bilateral: Coarse
Lung Excursion:: Normal
Abdomen:: Nontender and Soft
Bowel Sounds:: Normal
Extremity Edema:: None: Bilateral:
Rodrigues Catheter: Yes
[2023-09-10 15:58] VITALS: BP 105/63
[2023-09-10 17:52] LABS: Glucose - Point of Care 161 mg/dl (70-99)
[2023-09-10 21:13] LABS: Glucose - Point of Care 153 mg/dl (70-99)
[2023-09-10] MEDS: FLOMAX 0.400000000000000022 MG PO (21:45)
[2023-09-10] MEDS: DESYREL 50 MG PO (21:45)
[2023-09-10] MEDS: LANTUS 0.0700000000000000067 UNITS SC (21:46)
[2023-09-10 23:00] VITALS: BP 133/78
[2023-09-11] MEDS: ROXICODONE 5 MG PO ×5 (01:41→21:48)
[2023-09-11] MEDS: MORPHINE SULFATE 1 MG IV ×2 (04:18→16:31)
[2023-09-11] MEDS: TYLENOL PO ×3 (05:57→17:38)
[2023-09-11 06:00] VITALS: BMI 22.6
--- NOTE | 2023-09-11 06:09 | PTCARENOTE ---
Pt complaining of pain t/o the night. Pt reports inability to sleep due to pain in lower back. PRN pain medication administered on the clock as ordered. Pain management reviewed with pt. Pt not happy with current pain regimen. Pt encouraged to
discuss with Will continue to monitor.
[2023-09-11 06:50] VITALS: BP 115/74
[2023-09-11 06:53] LABS: Hematocrit 26.3 % (39.0-52.0); Hemoglobin 9.4 g/dL (13.0-18.0); Mean Corp Hgb Conc. 35.7 g/dL (33.0-37.0); Mean Corpuscular Hgb 29.7 pg (27.0-31.0); Mean Platelet Volume 10.7 fL (7.4-10.4); Platelet Count 127 10^3/uL (130-400); Red Blood Cell Count 3.17 10^6/uL (4.70-6.10); Red Cell Dist. Width 14.9 % (11.5-14.5); White Blood Cell Count 7.3 10^3/uL (4.8-10.8)
[2023-09-11 07:25] LABS: Blood Urea Nitrogen 38 mg/dl (9-20); Calcium 8.5 mg/dl (8.4-10.2); Carbon Dioxide 27 mmol/L (22-30); Chloride 105 mmol/L (98-107); Estimated Creatinine Clearance 60 ml/min; Glucose 183 mg/dl (70-99); Sodium 136 mmol/L (135-145); eGFR > 60.00
[2023-09-11] MEDS: ASPIR LOW (ENTERIC COATED) 81 MG PO (07:55)
[2023-09-11] MEDS: COLACE 100 MG PO ×2 (07:55→21:50)
[2023-09-11] MEDS: PROGRAF 3 MG PO ×2 (07:56→22:07)
[2023-09-11] MEDS: LIDOCAINE 4% PATCH TOPICAL (07:56)
[2023-09-11] MEDS: MIRALAX PO (07:56)
[2023-09-11] MEDS: MYFORTIC DELAYED REL. 180 MG PO ×2 (07:56→21:51)
[2023-09-11 08:31] LABS: Glucose - Point of Care 195 mg/dl (70-99)
[2023-09-11] MEDS: NOVOLOG FLEXPEN 7 UNITS SC ×2 (08:51→17:37)
[2023-09-11] MEDS: NOVOLOG FLEXPEN-HIGH RESISTANCE 2 UNITS SC ×2 (08:52→17:37)
[2023-09-11 10:02] VITALS: BP 108/69; PULSE 98
[2023-09-11] MEDS: LOKELMA 10 GRAM PO (10:29)
[2023-09-11] MEDS: DAKIN'S SOLUTION 0.125% 1/4 STRENGTH 473 ML TOPICAL (10:30)
--- NOTE | 2023-09-11 10:32 | CM ---
CM placed call to [facility] and [facility], informed there were no clinicals received for patient, CM provided patients member ID number, informed that policy became ineffective February 2023, patients new policy number is [id number], will need clinicals
faxed to [phone]. Updated PT/OT faxed along with clinicals for SNF auth request for [facility]. TT sent to Hospitalist with update. CM will continue to follow for discharge planning needs.
Plan; awaiting auth approval for SNF to [facility].
--- NOTE | 2023-09-11 12:08 | W.PN.NEPH.PH ---
Today's Communication / Plan
-
follow labs and hematuria with rodrigues
Assessment/Plan
-
ROXY
R heel pressure ulcer
Left side Rotator cuff inj
Coronary Artery Disease with stents
Left Kidney/Liver Transplant in 2021 for Cirrhosis secondary to Hepatitis C-at [facility] February 26, 2022, b/l 1.3
Diabetes Mellitus, Type II no history of diabetic neuropathy or retinopathy
Chronic back pain requiring chronic opioid dependence
DJD -C3-C4, C5-C6
Urine drug screen positive for fentanyl
Anemia
Thrombocytopenia
DVT
Plan:
s/p TURP on 09/06
Cr improved to 1.3, did have a bump immediately post op
Rodrigues re inserted after being unable to void post operatively
per urology [place] as outpatient in [address] mild distention of collecting system and no ureteral dilation of TXP kidney, likely repeat ultrasound in 3-4 weeks
hematuria in rodrigues bag-monitor, follows
He reports seeing nephro 2m ago at [facility] , will try to speak to them
continue tac/mmf
K stable on loklema MWF
d/w nursing
-
-
Date of Service: September 11, 2023
CC / HPI / ROS
-
Chief Complaint:
ROXY
History of Present Illness:
ROXY/Cr stable 1.3
K stable at 5
plt stable
BP soft
rodrigues reinserted on 09/08
on immunosuppression for renal transplant
Review of Systems:
no CP/SOB
c/o back pain
Labs
-
Labs:
WBC 7.3 10^3/uL (4.8-10.8) 09/11/23 06:20
RBC 3.17 10^6/uL (4.70-6.10) L 09/11/23 06:20
Hgb 9.4 g/dL (13.0-18.0) L 09/11/23 06:20
Hct 26.3 % (39.0-52.0) L 09/11/23 06:20
Plt Count 127 10^3/uL (130-400) L D 09/11/23 06:20
Sodium 136 mmol/L (135-145) 09/11/23 06:20
Potassium 5.0 mmol/L (3.5-5.1) 09/11/23 06:20
Chloride 105 mmol/L (98-107) 09/11/23 06:20
Carbon Dioxide 27 mmol/L (22-30) 09/11/23 06:20
BUN 38 mg/dl (9-20) H 09/11/23 06:20
Creatinine 1.3 mg/dL (0.7-1.3) 09/11/23 06:20
eGFR > 60.00 09/11/23 06:20
Glucose 183 mg/dl (70-99) H 09/11/23 06:20
Calcium 8.5 mg/dl (8.4-10.2) 09/11/23 06:20
Albumin 2.6 g/dl (3.5-5.0) L 08/29/23 06:49
Physical Exam
-
Vital Signs:
Vital Signs
Temp Pulse Resp BP Pulse Ox
97.9 F 91 17 115/74 100
09/11/23 06:50 09/11/23 06:50 09/11/23 06:50 09/11/23 06:50 09/11/23 09:57
Cardiovascular:: Regular rate and rhythm
Respiratory:: Bilateral: CTA
Lung Excursion:: Normal
Abdomen:: Nontender and Soft
Extremity Edema:: None: Bilateral:
Rodrigues Catheter: Yes
[2023-09-11 12:25] LABS: Glucose - Point of Care 112 mg/dl (70-99)
[2023-09-11] MEDS: NOVOLOG FLEXPEN-HIGH RESISTANCE SC (12:31)
[2023-09-11] MEDS: NOVOLOG FLEXPEN SC (12:31)
--- NOTE | 2023-09-11 12:57 | W.PN.HOSP.TC ---
Today's Communication/Plan
-
see A/P
Assessment / Plan
Assessment / Plan
A/P:
# Right heel pressure ulcer
# Diabetic Foot wound
arterial US normal
apprec podiatry, no need for surgical debridement
blood cultures negative, Wound cultures shows E. coli, Staph aureus, Strep pyogenes
Completed Abx course (broad spectrum -> Cephalexin x 7 days)
Wound care on board
# Chronic Moderate aortic stenosis.
# Hx of Kidney/liver transplant in 2021
# History of hepatitis C and liver cirrhosis
Continue tacrolimus and mycophenolate
Tacrolimus level is therapeutic
patient follows with [facility] and states he has an upcoming appointment within next month
# ROXY on CKD stage 3, ROXY has resolved
# Acute on chronic urinary retention
# h/o BPH
Creatinine today at 1.3, at baseline
Renal US of donor kidney: hydronephrosis + hydroureter
nephro on board
TURP was initially planned but canceled due to DVT found on lower extremity venous ultrasound.
Case was discussed with heme- felt DVT is chronic.
Pt also seen by Taryn for preop clearance.
Pt underwent TURP by Uro 09/06 and rodrigues was placed post-op.
Failed voiding trial, Rodrigues was replaced 09/08.
Noted gross hematuria on 09/10.
Uro to address the gross hematuria
# Remote lower extremity thrombus no clinical symptoms to suggest acuity
# Remote IVC, little protective effect against pulmonary embolus
US noted Nonocclusive thrombus in the left femoral and popliteal veins, difficult to differentiate acute versus chronic,
Heme on board, felt DVT is chronic
Patient refused anticoagulation, no indication for anticoagulation now anyway with current hematuria
# Lower Back pain, chronic
# Right Hip Pain
# Sciatica - description of pain traveling down lower back to groin/leg
appreciate ortho consult
X-rays of the right hip demonstrate a healed right hip fracture. Hardware is intact with no signs of loosening or failure.
X-rays of the right knee demonstrate mild degenerative changes with medial and lateral compartment chondrocalcinosis.
Cont Tylenol ATC, low dose oxycodone 5 mg PRN, morphine IV for severe pain
pt refused lidocaine patch
Trazodone 50 mg HS added to help with sleep
patient states he takes medical marijuana outside the hospital
# Depressed mood likely 2/2 adjustment disorder
Pt denies to suicidal ideation
pt declined psych eval
# Normocytic anemia
# Pancytopenia, on two immunosuppressants s/p liver and kidney transplant
hemoglobin stable
# Muscle Spasms
Cyclobenzaprine PRN
# IDDM
# Hypoglycemia
Cont Lantus at 7 units HS,
adjust NovoLog to 7 units AC.
cover with ISS
# CAD
Continue aspirin
# Severe protein calorie malnutrition
BMI 23.3
DVT prophylaxis: Hold HSQ with gross hematuria, use SCD RLE
CODE STATUS: FULL CODE
Dispo: SNF
DW RN
DW Renal
called son twice to update, calls not answered
Anticipated Discharge: > 48 hours
Subjective/Interval History
-
Date of Service: September 11, 2023
Objective Data
-
Labs:
Laboratory Results
09/11/23
06:20
WBC 7.3
Hgb 9.4 L
Hct 26.3 L
Plt Count 127 L D
Sodium 136
Potassium 5.0
Chloride 105
Carbon Dioxide 27
BUN 38 H
Creatinine 1.3
Glucose 183 H
Calcium 8.5
Vital Signs:
Vital Signs
Temp Pulse Resp BP Pulse Ox
36.6 C 91 17 115/74 100
09/11/23 06:50 09/11/23 06:50 09/11/23 06:50 09/11/23 06:50 09/11/23 09:57
I&O
09/10/23 09/11/23 09/12/23
06:59 06:59 06:59
Intake Total 2160 / 2160 1200 / 1200
Output Total 2970 / 2970 1200 / 1200
Balance -810 / -810 0 / 0
Review of Systems
-
All other systems: Reviewed and negative
Psych: Reports Depressed
Physical Exam
-
General: Well Developed, Well Nourished, No Apparent Distress, Comfortable and Conversant
HEENT: Normocephalic, Atraumatic and Moist Mucous Membranes
Respiratory: Clear to Auscultation and Non Labored Respirations; Negative Accessory Resp Muscle Use
Cardiac: Regular Rhythm, S1/S2 and Murmur
GI: Soft, Nontender and Nondistended; Negative Normal Bowel Sounds
Genito-urinary: Bloody Urine and Rodrigues
Musculoskeletal: No Clubbing, No Cyanosis and No Edema
Skin: Warm, Dry and Ulcers (right foot in wound dressing)
Neuro: Awake and Alert
Psych: Calm and Intact Judgement/Insight
Data Reviewed
-
Ultrasound: Report Reviewed by me
Labs: Labs Reviewed by me
[2023-09-11 15:05] VITALS: BP 156/82
[2023-09-11] MEDS: FLUSH (NSS) 2 FLUSH IV (16:32)
[2023-09-11 17:35] LABS: Glucose - Point of Care 187 mg/dl (70-99)
--- NOTE | 2023-09-11 19:38 | PTCARENOTE ---
report called to Renetta BOWSER on [facility], pt and all personal belongings transported to room 421 via bed.
[2023-09-11 20:04] VITALS: BP 125/74; BMI 22.8
[2023-09-11 21:28] LABS: Glucose - Point of Care 214 mg/dl (70-99)
[2023-09-11] MEDS: DESYREL 50 MG PO (21:50)
[2023-09-11] MEDS: FLOMAX 0.400000000000000022 MG PO (21:50)
[2023-09-11 23:00] VITALS: BP 131/73
[2023-09-12] MEDS: LANTUS 0.0700000000000000067 UNITS SC ×2 (00:02→21:57)
[2023-09-12] MEDS: TYLENOL PO ×2 (00:36→06:24)
[2023-09-12] MEDS: ROXICODONE 5 MG PO ×3 (02:20→11:42)
[2023-09-12] MEDS: MORPHINE SULFATE 1 MG IV ×2 (04:36→17:56)
[2023-09-12 05:59] LABS: Hematocrit 24.2 % (39.0-52.0); Hemoglobin 8.4 g/dL (13.0-18.0); Mean Corp Hgb Conc. 34.7 g/dL (33.0-37.0); Mean Corpuscular Hgb 29.3 pg (27.0-31.0); Mean Corpuscular Volume 84.3 fL (80.0-94.0); Mean Platelet Volume 10.1 fL (7.4-10.4); Platelet Count 112 10^3/uL (130-400); Red Blood Cell Count 2.87 10^6/uL (4.70-6.10); Red Cell Dist. Width 14.8 % (11.5-14.5); White Blood Cell Count 5.7 10^3/uL (4.8-10.8)
[2023-09-12 06:00] VITALS: BMI 22.8
[2023-09-12 06:21] LABS: Blood Urea Nitrogen 35 mg/dl (9-20); Calcium 8.5 mg/dl (8.4-10.2); Carbon Dioxide 24 mmol/L (22-30); Chloride 106 mmol/L (98-107); Estimated Creatinine Clearance 61 ml/min; Glucose 160 mg/dl (70-99); Magnesium 2.3 mg/dl (1.6-2.3); Sodium 136 mmol/L (135-145); eGFR > 60.00
[2023-09-12 07:00] VITALS: BP 120/81
[2023-09-12] MEDS: MIRALAX 17 GRAMS PO (07:36)
[2023-09-12] MEDS: LIDOCAINE 4% PATCH 2 PATCH TOPICAL (07:36)
[2023-09-12] MEDS: ASPIR LOW (ENTERIC COATED) 81 MG PO (07:36)
[2023-09-12] MEDS: COLACE 100 MG PO ×2 (07:36→19:59)
[2023-09-12] MEDS: MYFORTIC DELAYED REL. 180 MG PO ×2 (07:37→20:00)
[2023-09-12 08:00] LABS: Glucose - Point of Care 185 mg/dl (70-99)
[2023-09-12] MEDS: PROGRAF 3 MG PO ×2 (09:39→19:59)
[2023-09-12] MEDS: NOVOLOG FLEXPEN SC (09:40)
[2023-09-12] MEDS: NOVOLOG FLEXPEN-HIGH RESISTANCE 1 UNITS SC ×2 (09:40→13:26)
[2023-09-12] MEDS: DAKIN'S SOLUTION 0.125% 1/4 STRENGTH 473 ML TOPICAL (09:41)
--- NOTE | 2023-09-12 11:03 | W.PN.URO.CBU ---
Today's Communication / Plan
-
Trial of void
Assessment / Plan
-
63M with ROXY and moderate to large volume urinary retention with hydronephrosis of transplant kidney during admission for diabetic foot wound
- s/p TURP 09/07/23
- Persistent retention on trial of void post op - Rodrigues replaced 09/08 with 800cc output
- Persistent retention may be due to post op inflammation vs underlying bladder dysfunction that was not able to be tested for as inpatient.
- Patient insistent on repeat trial of void today. I advised waiting would be more likely to be successful. Patient understands rodrigues likely to need to be replaced. Catheter removed
- PVR bladder scan, replace rodrigues if PVRs >300cc
- Continue tamsulosin
- Recommend follow up ultrasound in 3-4 weeks to re-eval hydronephrosis of transplant kidney
- Stable for discharge from urology standpoint after trial of void - mild hematuria is expected post op for up to 1 month and does not need to be resolved prior to discharge
Diagnosis
-
Date of Service: September 12, 2023
-
Patient Diagnosis:
BPH
Urinary retention
ROXY on CKD s/p kidney transplant
s/p TURP 09/06
Post Op Day:
Subjective
-
Normal post op hematuria
Objective
-
Vital Signs
Temp Pulse Resp BP Pulse Ox
98.2 F 100 18 120/81 99
09/12/23 07:00 09/12/23 07:00 09/12/23 07:00 09/12/23 07:00 09/12/23 07:00
Intake and Output
09/11/23 09/12/23 09/13/23
06:59 06:59 06:59
Intake Total 1200 / 1200 1140 / 1140
Output Total 1200 / 1200 2100 / 2100
Balance 0 / 0 -960 / -960
Intake:
Oral fluids 1200 / 1200 1140 / 1140
Output:
Urine, Rodrigues 1200 / 1200 500 / 500
Urine, Voided 0 / 0 1600 / 1600
Laboratory Results
09/12/23 05:27
09/12/23 05:27
Physical Exam
-
General - well developed, well nourished, no acute distress
Chest - clear
- rodrigues in place, light red urine
Skin - warm & dry with no rash
Neuro - AOx3, no motor deficits
[2023-09-12] MEDS: TYLENOL 650 MG PO ×2 (11:41→17:58)
[2023-09-12 12:34] LABS: Glucose - Point of Care 161 mg/dl (70-99)
[2023-09-12] MEDS: NOVOLOG FLEXPEN 7 UNITS SC ×2 (13:26→17:57)
--- NOTE | 2023-09-12 13:31 | W.PN.HOSP.TC ---
Today's Communication/Plan
-
d/c planning
Assessment / Plan
Assessment / Plan
pt is a 63 year old male
ROXY on CKD stage 3, ROXY has resolved--developed after admission, then had Acute on chronic urinary retention with h/o BPH--Renal US of donor kidney: hydronephrosis + hydroureter--apprec renal/urology--TURP was initially planned but canceled due to
DVT found on lower extremity venous ultrasound--Case was discussed with heme- felt DVT is chronic--Pt was also seen by Taras and Sanchez for preop clearance--Pt underwent TURP by Uro 09/06 and rodrigues was placed post-op--Failed voiding trial, Rodrigues was
replaced 09/08--Noted gross hematuria on 09/10--
Remote lower extremity thrombus no clinical symptoms to suggest acuity--Remote IVC, little protective effect against pulmonary embolus--US noted Nonocclusive thrombus in the left femoral and popliteal veins, difficult to differentiate acute versus
chronic--Heme on board, felt DVT is chronic--Patient refused anticoagulation, no indication for anticoagulation now anyway with current hematuria
Right heel pressure ulcer (POA)--Diabetic Foot wound--arterial US normal--apprec podiatry, no need for surgical debridement--blood cultures negative, Wound cultures shows E. coli, Staph aureus, Strep pyogenes--Completed Abx course (broad spectrum ->
Cephalexin x 7 days)--apprec Wound care on board
Lower Back pain, chronic --Right Hip Pain--Sciatica - description of pain traveling down lower back to groin/leg (INITIAL ADMITTING COMPLAINT)--appreciated ortho consult--X-rays of the right hip demonstrate a healed right hip fracture. Hardware is
intact with no signs of loosening or failure--X-rays of the right knee demonstrate mild degenerative changes with medial and lateral compartment chondrocalcinosis--Cont Tylenol ATC, low dose oxycodone 5 mg PRN, morphine IV for severe pain--pt
refused lidocaine patch--Trazodone 50 mg HS added to help with sleep--patient states he takes medical marijuana outside the hospital
Chronic Moderate aortic stenosis--noted
Hx of Kidney/liver transplant in 2021--History of hepatitis C and liver cirrhosis--Continue tacrolimus and mycophenolate--Tacrolimus level is therapeutic--patient follows with [facility] and states he has an upcoming appointment within next month
Depressed mood likely 2/2 adjustment disorder--Pt denies to suicidal ideation--pt declined psych eval
Normocytic anemia/Pancytopenia, on two immunosuppressants s/p liver and kidney transplant--hemoglobin stable
Muscle Spasms--Cyclobenzaprine PRN
IDDM/Hypoglycemia--Cont Lantus at 7 units HS, adjust NovoLog to 7 units AC--cover with ISS
CAD--Continue aspirin
Severe protein calorie malnutrition--BMI 23.3
DVT prophylaxis: Hold HSQ with gross hematuria, use SCD RLE
CODE STATUS: FULL CODE
Dispo: SNF
Anticipated Discharge: 24 - 48 hours
Subjective/Interval History
-
Date of Service: September 12, 2023
pt asking about pain meds
Objective Data
-
Labs:
Laboratory Results
09/12/23
05:27
WBC 5.7
Hgb 8.4 L
Hct 24.2 L
Plt Count 112 L
Sodium 136
Potassium 5.0
Chloride 106
Carbon Dioxide 24
BUN 35 H
Creatinine 1.3
Glucose 160 H
Calcium 8.5
Vital Signs:
max temp for 24 hours
09/12/23
07:00
Temp 98.2 F
Vital Signs
Temp Pulse Resp BP Pulse Ox
98.2 F 100 18 120/81 99
09/12/23 07:00 09/12/23 07:00 09/12/23 07:00 09/12/23 07:00 09/12/23 07:00
I&O
09/11/23 09/12/23 09/13/23
06:59 06:59 06:59
Intake Total 1200 / 1200 1140 / 1140
Output Total 1200 / 1200 2099 / 2099
Balance 0 / 0 -960 / -960
Review of Systems
-
All other systems: Reviewed and negative
Physical Exam
-
General: Well Developed, Well Nourished and No Apparent Distress
HEENT: Normocephalic and Atraumatic
Respiratory: Clear to Auscultation; Negative Wheezes or Rhonchi
Cardiac: Regular Rhythm and S1/S2; Negative Murmur
GI: Soft, Nontender, Nondistended and Normal Bowel Sounds
Musculoskeletal: No Clubbing, No Cyanosis and No Edema
Skin: Warm
Neuro: Awake and Alert
[2023-09-12 15:00] VITALS: BP 132/79
--- NOTE | 2023-09-12 16:01 | CM ---
Patient accepted at [facility] [phone]/fax [phone] fax. CM reviewed with patient options for SNF and provided IMM. Patient would prefer to go to [facility] but patient aware that [facility] will transfer to [facility] when bed is available. Patient
unsure about signing IMM form. CM updated admissions Susu and sent copy of auth. Patient for wheelchair van and CM spoke with kitchen work supervisor regarding cost. Patient for picking tech at 5:30pm. CM will continue to follow for discharge planning needs.
Plan; SNF; [facility] today
--- NOTE | 2023-09-12 16:35 | W.PN.NEPH.PH ---
Today's Communication / Plan
-
follow labs , observe
Assessment/Plan
-
ROXY
R heel pressure ulcer
Left side Rotator cuff inj
Coronary Artery Disease with stents
Left Kidney/Liver Transplant in 2021 for Cirrhosis secondary to Hepatitis C-at [facility] February 26, 2022, b/l 1.3
Diabetes Mellitus, Type II no history of diabetic neuropathy or retinopathy
Chronic back pain requiring chronic opioid dependence
DJD -C3-C4, C5-C6
Urine drug screen positive for fentanyl
Anemia
Thrombocytopenia
DVT
Plan:
s/p TURP on 09/06
Cr improved and stable at 1.3\\
VT today per , follow bladder scan
repeat CT 09/04 mild distention of collecting system and no ureteral dilation of TXP kidney, likely repeat ultrasound in 3-4 weeks
He reports seeing nephro 2m ago at [facility] , likely has appointment next month
continue tac/mmf
K stable on loklema MWF
d/w nursing
-
-
Date of Service: September 12, 2023
CC / HPI / ROS
-
Chief Complaint:
ROXY
History of Present Illness:
ROXY/Cr stable 1.3
K stable at 5
plt stable
BP stable
rodrigues reinserted on 09/08, VT today
on immunosuppression for renal transplant
Review of Systems:
no CP/SOB
c/o chr back pain
Labs
-
Labs:
WBC 5.7 10^3/uL (4.8-10.8) 09/12/23 05:27
RBC 2.87 10^6/uL (4.70-6.10) L 09/12/23 05:27
Hgb 8.4 g/dL (13.0-18.0) L 09/12/23 05:27
Hct 24.2 % (39.0-52.0) L 09/12/23 05:27
Plt Count 112 10^3/uL (130-400) L 09/12/23 05:27
Sodium 136 mmol/L (135-145) 09/12/23 05:27
Potassium 5.0 mmol/L (3.5-5.1) 09/12/23 05:27
Chloride 106 mmol/L (98-107) 09/12/23 05:27
Carbon Dioxide 24 mmol/L (22-30) 09/12/23 05:27
BUN 35 mg/dl (9-20) H 09/12/23 05:27
Creatinine 1.3 mg/dL (0.7-1.3) 09/12/23 05:27
eGFR > 60.00 09/12/23 05:27
Glucose 160 mg/dl (70-99) H 09/12/23 05:27
Calcium 8.5 mg/dl (8.4-10.2) 09/12/23 05:27
Albumin 2.6 g/dl (3.5-5.0) L 08/29/23 06:49
Physical Exam
-
Vital Signs:
Vital Signs
Temp Pulse Resp BP Pulse Ox
97.5 F 92 16 132/79 95
09/12/23 15:00 09/12/23 15:00 09/12/23 15:00 09/12/23 15:00 09/12/23 15:00
Cardiovascular:: Regular rate and rhythm
Respiratory:: Bilateral: CTA
Lung Excursion:: Normal
Abdomen:: Nontender and Soft
Extremity Edema:: None: Bilateral:
Rodrigues Catheter: No
[2023-09-12] MEDS: ROXICODONE 10 MG PO ×2 (16:45→21:57)
[2023-09-12 16:53] LABS: Glucose - Point of Care 239 mg/dl (70-99)
[2023-09-12] MEDS: NOVOLOG FLEXPEN-HIGH RESISTANCE 4 UNITS SC (17:57)
[2023-09-12 20:59] LABS: Glucose - Point of Care 180 mg/dl (70-99)
[2023-09-12] MEDS: FLOMAX 0.400000000000000022 MG PO (21:56)
[2023-09-12] MEDS: DESYREL 50 MG PO (21:56)
[2023-09-12 23:17] VITALS: BP 116/70
[2023-09-13] MEDS: TYLENOL PO ×3 (00:28→13:06)
[2023-09-13] MEDS: ROXICODONE 10 MG PO ×4 (01:58→15:56)
[2023-09-13] MEDS: FLEET MINERAL OIL ENEMA 133 ML RECTAL (03:32)
[2023-09-13 06:00] VITALS: BMI 21.8
[2023-09-13] MEDS: MORPHINE SULFATE 1 MG IV (06:31)
[2023-09-13 07:30] VITALS: BP 115/66
[2023-09-13 07:49] LABS: Glucose - Point of Care 172 mg/dl (70-99)
[2023-09-13] MEDS: PROGRAF 3 MG PO (09:16)
[2023-09-13] MEDS: COLACE 100 MG PO (09:16)
[2023-09-13] MEDS: MIRALAX 17 GRAMS PO (09:16)
[2023-09-13] MEDS: ASPIR LOW (ENTERIC COATED) 81 MG PO (09:16)
[2023-09-13] MEDS: MYFORTIC DELAYED REL. 180 MG PO (09:16)
[2023-09-13] MEDS: LIDOCAINE 4% PATCH 2 PATCH TOPICAL (09:17)
[2023-09-13] MEDS: NOVOLOG FLEXPEN SC ×3 (09:17→16:35)
[2023-09-13] MEDS: NOVOLOG FLEXPEN-HIGH RESISTANCE 2 UNITS SC (09:17)
[2023-09-13] MEDS: LOKELMA 10 GRAM PO (09:20)
[2023-09-13] MEDS: NOVOLOG FLEXPEN 7 UNITS SC (11:06)
[2023-09-13 11:21] VITALS: BP 108/69; PULSE 98; O2SAT 96
--- NOTE | 2023-09-13 11:29 | W.PN.UPDATE ---
Update Note
Progress Note Update
Persistent elevated PVRs with trial of void
PVR 500cc today
Recommend replacement of rodrigues catheter - 18Fr with 30cc in balloon
Advise against CIC at this time given recent TURP which would be higher risk for bleeding
Outpatient follow up as scheduled
[2023-09-13 11:37] LABS: Glucose - Point of Care 160 mg/dl (70-99)
--- NOTE | 2023-09-13 12:37 | PTCARENOTE ---
Addendum entered by John Peguero RN 09/13/23 16:17:
Pt next PVR 473. Patient again educated on risks of straight cathing, now agreeable to rodrigues placement. 18fr rodrigues placed, draining bloody urine. Pt for discharge this afternoon.
Original Note:
Patient voided 25cc bloody urine, bladder scanned for a PVR of 505. MD Ann made aware, ordered rodrigues placement. Patient refusing rodrigues at this time, requesting he just be straight cathed. This RN educated patient on risk of bleeding with
intermittent catheterizations and MD Ann's recommendations. Pt states he thinks his retention is due to his constipation and continues to refuse rodrigues. Milk and molasses enema administered with adequate relief, will follow along to scan for next
PVR.
--- NOTE | 2023-09-13 12:48 | W.PN.NEPH.PH ---
Today's Communication / Plan
-
follow BMP
Assessment/Plan
-
ROXY
R heel pressure ulcer
Left side Rotator cuff inj
Coronary Artery Disease with stents
Left Kidney/Liver Transplant in 2021 for Cirrhosis secondary to Hepatitis C-at [facility] February 26, 2022, b/l 1.3
Diabetes Mellitus, Type II no history of diabetic neuropathy or retinopathy
Chronic back pain requiring chronic opioid dependence
DJD -C3-C4, C5-C6
Urine drug screen positive for fentanyl
Anemia
Thrombocytopenia
DVT
Plan:
s/p TURP on 09/06
follow BMP
rodrigues per urology
continue tac/mmf
K stable on loklema MWF
-
-
Date of Service: September 13, 2023
CC / HPI / ROS
-
Chief Complaint:
ROXY
History of Present Illness:
ROXY/Cr stable 1.3 yesterday
K stable at 5 yesterday
BP stable
high PVR still. intermittent catherterization still
on immunosuppression for renal transplant
Review of Systems:
no CP/SOB
c/o chr back pain
Labs
-
Labs:
WBC 5.7 10^3/uL (4.8-10.8) 09/12/23 05:27
RBC 2.87 10^6/uL (4.70-6.10) L 09/12/23 05:27
Hgb 8.4 g/dL (13.0-18.0) L 09/12/23 05:27
Hct 24.2 % (39.0-52.0) L 09/12/23 05:27
Plt Count 112 10^3/uL (130-400) L 09/12/23 05:27
Sodium 136 mmol/L (135-145) 09/12/23 05:27
Potassium 5.0 mmol/L (3.5-5.1) 09/12/23 05:27
Chloride 106 mmol/L (98-107) 09/12/23 05:27
Carbon Dioxide 24 mmol/L (22-30) 09/12/23 05:27
BUN 35 mg/dl (9-20) H 09/12/23 05:27
Creatinine 1.3 mg/dL (0.7-1.3) 09/12/23 05:27
eGFR > 60.00 09/12/23 05:27
Glucose 160 mg/dl (70-99) H 09/12/23 05:27
Calcium 8.5 mg/dl (8.4-10.2) 09/12/23 05:27
Albumin 2.6 g/dl (3.5-5.0) L 08/29/23 06:49
Physical Exam
-
Vital Signs:
Vital Signs
Temp Pulse Resp BP Pulse Ox
97.9 F 94 18 115/66 100
09/13/23 07:30 09/13/23 07:30 09/13/23 07:30 09/13/23 07:30 09/13/23 07:30
Cardiovascular:: Regular rate and rhythm
Respiratory:: Bilateral: Coarse
Lung Excursion:: Normal
Abdomen:: Nontender and Soft
Bowel Sounds:: Normal
Extremity Edema:: None: Bilateral:
[2023-09-13] MEDS: DAKIN'S SOLUTION 0.125% 1/4 STRENGTH 473 ML TOPICAL (13:54)
[2023-09-13] MEDS: NOVOLOG FLEXPEN-HIGH RESISTANCE SC ×2 (14:51→16:35)
--- NOTE | 2023-09-13 14:52 | W.PN.HOSP.TC ---
Today's Communication/Plan
-
d/c
Assessment / Plan
Assessment / Plan
pt is a 63 year old male
OK for d/c
ROXY on CKD stage 3, ROXY has resolved--developed after admission, then had Acute on chronic urinary retention with h/o BPH--Renal US of donor kidney: hydronephrosis + hydroureter--apprec renal/urology--TURP was initially planned but canceled due to
DVT found on lower extremity venous ultrasound--Case was discussed with heme- felt DVT is chronic--Pt was also seen by Taras and Sanchez for preop clearance--Pt underwent TURP by Uro 09/06 and rodrigues was placed post-op--Failed voiding trial, Rodrigues was
replaced 09/08--Noted gross hematuria on 09/10--
Remote lower extremity thrombus no clinical symptoms to suggest acuity--Remote IVC, little protective effect against pulmonary embolus--US noted Nonocclusive thrombus in the left femoral and popliteal veins, difficult to differentiate acute versus
chronic--Heme on board, felt DVT is chronic--Patient refused anticoagulation, no indication for anticoagulation now anyway with current hematuria
Right heel pressure ulcer (POA)--Diabetic Foot wound--arterial US normal--apprec podiatry, no need for surgical debridement--blood cultures negative, Wound cultures shows E. coli, Staph aureus, Strep pyogenes--Completed Abx course (broad spectrum ->
Cephalexin x 7 days)--apprec Wound care on board
Lower Back pain, chronic --Right Hip Pain--Sciatica - description of pain traveling down lower back to groin/leg (INITIAL ADMITTING COMPLAINT)--appreciated ortho consult--X-rays of the right hip demonstrate a healed right hip fracture. Hardware is
intact with no signs of loosening or failure--X-rays of the right knee demonstrate mild degenerative changes with medial and lateral compartment chondrocalcinosis--Cont Tylenol ATC, low dose oxycodone 5 mg PRN, morphine IV for severe pain--pt
refused lidocaine patch--Trazodone 50 mg HS added to help with sleep--patient states he takes medical marijuana outside the hospital
Chronic Moderate aortic stenosis--noted
Hx of Kidney/liver transplant in 2021--History of hepatitis C and liver cirrhosis--Continue tacrolimus and mycophenolate--Tacrolimus level is therapeutic--patient follows with [facility] and states he has an upcoming appointment within next month
Depressed mood likely 2/2 adjustment disorder--Pt denies to suicidal ideation--pt declined psych eval
Normocytic anemia/Pancytopenia, on two immunosuppressants s/p liver and kidney transplant--hemoglobin stable
Muscle Spasms--Cyclobenzaprine PRN
IDDM/Hypoglycemia--Cont Lantus at 7 units HS, adjust NovoLog to 7 units AC--cover with ISS
CAD--Continue aspirin
Severe protein calorie malnutrition--BMI 23.3
DVT prophylaxis: Hold HSQ with gross hematuria, use SCD RLE
CODE STATUS: FULL CODE
Dispo: SNF
Anticipated Discharge: Today
Subjective/Interval History
-
Date of Service: September 13, 2023
pt ready for d/c
Objective Data
-
Vital Signs:
max temp for 24 hours
09/13/23
07:30
Temp 97.9 F
Vital Signs
Temp Pulse Resp BP Pulse Ox
97.9 F 94 18 115/66 100
09/13/23 07:30 09/13/23 07:30 09/13/23 07:30 09/13/23 07:30 09/13/23 07:30
I&O
09/12/23 09/13/23 09/14/23
06:59 06:59 06:59
Intake Total 1140 / 1140 960 / 960
Output Total 2100 / 2100 250 / 250 250 / 250
Balance -960 / -960 710 / 710 -250 / -250
Review of Systems
-
All other systems: Reviewed and negative
Physical Exam
-
General: Well Developed, Well Nourished and No Apparent Distress
HEENT: Normocephalic and Atraumatic
Cardiac: Regular Rhythm, S1/S2 and Murmur
GI: Soft, Nontender, Nondistended and Normal Bowel Sounds
Musculoskeletal: No Clubbing, No Cyanosis and No Edema
Neuro: Awake and Alert
[2023-09-13 15:00] VITALS: BP 119/74
--- NOTE | 2023-09-13 15:04 | CM ---
Patient accepted at [facility] [phone]/fax [phone] fax. Auth confirmed by admissions Susu at [facility]. Awaiting time of transport, patient declined to sign IMM CM will continue to follow for discharge planning needs.
Plan; SNF; [facility] today
--- NOTE | 2023-09-14 06:43 | W.DCSUMMARY ---
Discharge Summary
Discharge Data
Date of Admission: 08/15/23
Date of Discharge: 09/13/23
-
Pending Results: No
Hospital Course
Primary care physician : Geneva Lantigua
Principal Discharge diagnosis : Acute kidney injury on chronic kidney disease stage III, remote lower extremity thrombus, chronic low back pain
Chronic Discharge diagnosis : Chronic moderate aortic stenosis, renal liver transplant, depression, anemia of chronic disease with pancytopenia, muscle spasms, type 2 diabetes mellitus, coronary artery disease, severe protein calorie malnutrition,
right heel pressure ulcer present on admission
Hospital Course : Patient was a 63-year-old male who had a right hip fracture with open reduction internal fixation in June 2023. He was discharged to rehab and then he stated that he had to go to another rehab and then got discharged 2 days prior
to this admission. He states that he is homeless and lives out of his car. Since his discharge from rehab he noticed right hip pain which got severe where he could not bear weight. He denied any trauma. He called 911 and came to the hospital.
Right hip wound was healed and clear. While he was in the second rehab he developed a right heel wound with blister without any drainage. He stated he was having chills but no fever. Of note, he has both a renal and liver transplant and he is on
immunosuppressive medications. His transplant team is at [facility]. Patient was admitted.
Problem #1: Chronic low back pain. This was felt to be more sciatic in nature. His initial admitting complaint was pain down his leg and groin. Orthopedics was consulted. X-ray of the right hip demonstrated a healed right hip fracture with
intact hardware. We also investigated his right knee as potential cause and x-ray showed mild degenerative changes with medial and lateral compartment chondrocalcinosis. While in house, patient stated that IV Dilaudid was the only thing that
worked for him. Throughout his hospital course multiple providers saw him and decreased him to [id number] Tylenol, low-dose oxycodone as needed for moderate pain and morphine for severe pain. He was offered a lidocaine patch which he refused.
Trazodone was added to help with sleep. Patient stated he takes medical marijuana outside the hospital which of course he did not get here. He continued to complain that the oxycodone did not work for him. Upon discharge to the shelter
facility he was given a prescription for oral Dilaudid.
Problem #2: Acute kidney injury on chronic kidney disease stage III. This developed after admission. He does have acute on chronic urinary retention with a history of benign prostatic hyperplasia and was scheduled for an outpatient TURP. Patient
has a donor kidney and renal ultrasound of the donor kidney showed hydronephrosis and hydroureter. Nephrology and urology were both consulted. Patient underwent TURP on September 07, 2023 and Mejia catheter was placed postoperatively. He failed a
voiding trial and a Mejia catheter was replaced on September 08. He then wanted the catheter out and explained to urology that he did not wish to continue it. He again failed voiding trials and catheter was replaced. He had gross hematuria on September 10
which is expected as per urology given this type of surgery. He was discharged with a catheter to the shelter facility.
Problem #3: Remote lower extremity thrombus. This was found incidentally. He has a remote IVC filter. Ultrasound noted nonocclusive thrombus in the left femoral and popliteal veins. Hematology was consulted and this was felt to be chronic. The
patient refused anticoagulation but nevertheless would have had to hold it given his hematuria anyway.
Problem #4: All other medical issues. These include Chronic moderate aortic stenosis, renal liver transplant, depression, anemia of chronic disease with pancytopenia, muscle spasms, type 2 diabetes mellitus, coronary artery disease, severe protein
calorie malnutrition, right heel pressure ulcer present on admission. These medical issues were stable during his hospitalization. Medications were continued as able. In regards to his right heel pain/ulcer, this was present on admission podiatry
was consulted there was no need for surgical debridement. Blood cultures were negative and wound culture showed Escherichia coli, Staphylococcus aureus, Streptococcus pyogenes. He completed a 7-day course of cephalexin while here in the hospital.
Multiple attempts were made to discharge the patient. He has agreed to a shelter facility. He wanted [facility] but [facility]. They indicated that they would work with him to transition him to [facility] when a
bed became available. Patient is stable for discharge to the rehab at this time. If there are any questions regarding this dictation or his hospital stay, please not hesitate to call. Our office number is [phone].
Time for discharge 40 minutes.
Important imaging findings :
RIGHT HIP X-RAY IMPRESSION:
Status post dynamic compression screw fixation of right proximal femoral fracture. The fracture line appears to be healed radiographically.
No evidence for new fracture. No evidence for displacement of fixation hardware.
RENAL ULTRASOUND IMPRESSION:
Mild hydroureteronephrosis of the left lower quadrant renal transplant.
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 No definite urinary calculi or hydronephrosis of the [place] kidneys.
Findings suggesting chronic outlet obstruction.
PERIPHERAL ULTRASOUND IMPRESSION:
No evidence of deep venous thrombosis of the right lower extremity.
Nonocclusive thrombus in the left femoral and popliteal veins, difficult to differentiate acute versus chronic, no prior outside study available for comparison.
CT SCAN ABDOMEN/PELVIS IMPRESSION:
Left pelvic transplant kidney with mild distention of the collecting system. No perinephric soft tissue stranding. No ureteral dilatation.
Splenomegaly, 15 cm in long axis.
Moderately prominent splenogastric portosystemic varices.
Inferior vena cava filter in place.
4 mm nonobstructing calculus in the midpole of the [place] left kidney. [place] left renal cysts.
Constipation. Large dense solid fecal burden in the rectum and sigmoid colon. Rectal distention up to 7.4 cm. Mild to moderate fecal burden throughout the remainder the colon.
Procedure findings :
Primary Surgeon: Alondrafer
Pre-op Diagnosis: BPH, urinary retention
Post-op Diagnosis: BPH, urinary retention
Procedure Performed: TURP
Anesthesia Type: general
Specimen / Cultures: none
Estimated Blood Loss: 2cc
Complications: none
Operative Findings: obstructive prostate with chronically obstructed bladder
DESEAN smooth and without nodules
Unable to locate orifice of transplant ureter due to significant bladder trabeculation
Discharge Plan
-
Patient Disposition: Longterm/SNF
Discharge Diagnosis/Procedures: Right hip pain with rash (resolved), right heel pressure ulcer present on admission, known heart murmur, liver/kidney transplant 2021, mild acute kidney injury, normocytic anemia, chronic thrombocytopenia, type 2
diabetes mellitus insulin requiring, coronary artery disease, severe protein calorie malnutrition, acute kidney injury on chronic kidney disease stage III, urinary retention due to benign prostatic hyperplasia status post TURP, depression
Condition: Fair
Diet: Diabetic, Carb Controlled
Activity: As tolerated
Driving Restrictions: As prior to admission
Bathing Restrictions: None
Wound Care: Wound Care Instructions
R heel-clean with 1/4 strength Dakin's solution, no sting barrier wipe to surrounding skin, adaptic, alginate, cover with silicone border foam and stockinet or ABD pad and Kerlix wrap, change daily and prn drainage.
R pressure relief shoe.
Soft heel relief boots as tolerated (i.e. TruVue lite boots); elevate heels off bed with pillows while boots off.
Pressure redistributing chair cushion (i.e. Air chair cushion).
Follow up with tree doctor.
Follow up at wound care center call for an appointment.
Urinary retention:
- Straight catheterization for PVR volume >400ml, Q12h
Follow up instructions:
- Follow up with PCP Dr. Geneva Lantigua within 2 weeks of discharge
- Strongly encouraged to follow up [facility]
- Follow-up with cardiology
Instructions: Urinary retention - Discharge instructions
Referrals:
Laura Stewart PA-C [Specified Professional Personl] - 10/06/23 2:40 pm (You have a cardiology follow-up appointment at the [facility] office. Please call with questions)
Geneva Lantigua, DO [Family Provider] - in less than 1 week
Prescriptions:
New
Dakin's Solution 0.125 % Solution
1 applic topical DAILY Qty: 0 0RF
cyclobenzaprine 10 mg Tablet
10 mg PO Q12H PRN (Reason: muscle spasm) Qty: 60 0RF
acetaminophen 325 mg Tablet
650 mg PO Q6H Qty: 60 0RF
trazodone 50 mg Tablet
50 mg PO HS Qty: 10 0RF
cyclobenzaprine 10 mg Tablet
5 mg PO Q12H PRN (Reason: muscle spasm) Qty: 10 0RF
lidocaine 4 % Adhesive Patch,Medicated
2 patch topical DAILY Qty: 0 0RF
Lokelma 10 gram Powder In Packet
10 g PO MoWeFr@1000 Qty: 0 0RF
Insulin Glargine Lantus [Lantus] 7 UNITS
Subcutaneous Insulin Syringe [Syringe-Insulin] 0 UNIT
As Directed mls/hr SC HS
Ordered By: Norma Pollock MD
Last Taken: 09/12/23 21:57 0.07 mls
insulin aspart U-100 100 unit/mL (3 mL) Insulin Pen
7 unit SC AC Qty: 0 0RF
hydromorphone [Dilaudid] 2 mg tablet
2 mg PO Q6H PRN (Reason: severe pain) Qty: 10 0RF
Continued
aspirin 81 mg Tablet,Delayed Release (Dr/Ec)
81 mg PO DAILY
tacrolimus 1 mg Capsule
3 mg PO Q12H@0800,2000
Patient Comments:
08/15/2023, last filled on 12/23/2023 for 30-day supply.
insulin lispro 100 unit/mL insulin pen
0 sliding scale dose SC DIRECTED
Patient Comments:
08/15/2023, pt. uses this med. on a sliding scale but does not know what that sliding scale is; per pt., if his BS is around 270 he will inject 6 units.
mycophenolate sodium 180 mg Tablet,Delayed Release (Dr/Ec)
180 mg PO Q12H@0800,2000
Patient Comments:
08/15/2023, last filled on 12/23/2023 for 30-day supply.
Discontinued
oxycodone 10 mg Tablet
10 mg PO BID PRN (Reason: severe pain)
Patient Comments:
08/15/2023, last filled on 07/24/2023 for 30 tablets per PDMP.
No Action
tamsulosin 0.4 mg capsule
0.4 mg PO HS
Discharge Orders:
Discharge Patient (As Directed); Ordered 09/13/23
Ordered By: Norma Pollock
Discharge Date and Time
Discharge Date/Time: 09/13/23 17:17
Print Language: ICELANDIC
== END 2023-09-13 17:17 | DRG 987 ==
LOC: 4 WEST ACU 21:21
PROVIDERS: Internal Medicine; Nurse Practitioner Family; Registered Nurse; Specialist; Student in an Organized Health Care Education/Training Program; ADMITTING PHYSICIAN Internal Medicine; ATTENDING PHYSICIAN Internal Medicine; CONSULT PHYSICIAN Internal Medicine Cardiovascular Disease; CONSULT PHYSICIAN Internal Medicine Critical Care Medicine; CONSULT PHYSICIAN Internal Medicine Hematology & Oncology; CONSULT PHYSICIAN Student in an Organized Health Care Education/Training Program; CONSULT PHYSICIAN Urology; EMERGENCY PHYSICIAN Emergency Medicine; FAMILY PHYSICIAN Family Medicine; OTHER PHYSICIAN Orthopaedic Surgery; OTHER PHYSICIAN Podiatrist Foot & Ankle Surgery
PROC: 0V508ZZ Destruction of Prostate, Via Natural or Artificial Opening Endoscopic (ICD-10-PCS; 2023-09-08)
DX: L03.115 Cellulitis of right lower limb (principal); E43 Unspecified severe protein-calorie malnutrition; Z94.4 Liver transplant status; E11.52 Type 2 diabetes mellitus with diabetic peripheral angiopathy with gangrene; N17.9 Acute kidney failure, unspecified; T86.19 Other complication of kidney transplant; Z59.02 Unsheltered homelessness; D84.821 Immunodeficiency due to drugs; L97.419 Non-pressure chronic ulcer of right heel and midfoot with unspecified severity; D61.818 Other pancytopenia; F11.20 Opioid dependence, uncomplicated; N13.30 Unspecified hydronephrosis; I82.432 Acute embolism and thrombosis of left popliteal vein; I82.412 Acute embolism and thrombosis of left femoral vein; E11.649 Type 2 diabetes mellitus with hypoglycemia without coma; E11.65 Type 2 diabetes mellitus with hyperglycemia; N32.0 Bladder-neck obstruction; I25.10 Atherosclerotic heart disease of native coronary artery without angina pectoris; E11.22 Type 2 diabetes mellitus with diabetic chronic kidney disease; M11.261 Other chondrocalcinosis, right knee; L89.619 Pressure ulcer of right heel, unspecified stage; B96.20 Unspecified Escherichia coli [E. coli] as the cause of diseases classified elsewhere; R21 Rash and other nonspecific skin eruption; B95.4 Other streptococcus as the cause of diseases classified elsewhere; E11.621 Type 2 diabetes mellitus with foot ulcer; B95.61 Methicillin susceptible Staphylococcus aureus infection as the cause of diseases classified elsewhere; Y83.0 Surgical operation with transplant of whole organ as the cause of abnormal reaction of the patient, or of later complication, without mention of misadventure at the time of the procedure; N32.89 Other specified disorders of bladder; G89.29 Other chronic pain; M50.31 Other cervical disc degeneration, high cervical region; K59.00 Constipation, unspecified; N18.31 Chronic kidney disease, stage 3a; E87.5 Hyperkalemia; S90.821A Blister (nonthermal), right foot, initial encounter; N40.1 Benign prostatic hyperplasia with lower urinary tract symptoms; M62.838 Other muscle spasm; F43.20 Adjustment disorder, unspecified; R33.8 Other retention of urine; I08.0 Rheumatic disorders of both mitral and aortic valves; D63.8 Anemia in other chronic diseases classified elsewhere; Z53.09 Procedure and treatment not carried out because of other contraindication; Z96.649 Presence of unspecified artificial hip joint; Z95.5 Presence of coronary angioplasty implant and graft; Z79.621 Long term (current) use of calcineurin inhibitor; Z87.891 Personal history of nicotine dependence; Z86.19 Personal history of other infectious and parasitic diseases; Z79.82 Long term (current) use of aspirin; Z79.4 Long term (current) use of insulin; Z87.81 Personal history of (healed) traumatic fracture; Z68.21 Body mass index [BMI] 21.0-21.9, adult; Z91.199 Patient's noncompliance with other medical treatment and regimen due to unspecified reason; Z95.828 Presence of other vascular implants and grafts; Z90.79 Acquired absence of other genital organ(s); Z86.718 Personal history of other venous thrombosis and embolism
CPT/HCPCS: 73502; 73564; 73650; 74177; 76770; 80048; 80053; 80197; 80202; 81003; 81015; 82040; 82570; 82728; 82962; 83036; 83540; 83550; 83605; 83735; 84132; 84153; 84300; 84466; 85025; 85027; 87040; 87070; 87077; 87147; 87186; 87205; 93005; 93306; 93922; 93925; 93970; 96361; 96374; 96375; 97116; 97162; 97165; 97530; 97535; 99285; Q9967

== ENCOUNTER 2023-09-13 19:05 | Emergency (ER) | payer MEDICARE, OTHER, SELFPAY ==
[2023-09-13 19:18] VITALS: BP 125/70
[2023-09-13 19:30] VITALS: BP 121/73
[2023-09-13 19:39] VITALS: BMI 22.9
--- NOTE | 2023-09-13 19:45 | ED.GENMED ---
History of Present Illness
General
Chief Complaint: Catheter/Tube Problem
Source: patient, records and physician
Time Seen by Provider: 09/13/23 19:15
Travel History
Have you had any contact with someone who has COVID-19?: No
Do you have any symptoms of coronavirus? Fever > 100 degrees, chills, cough, shortness of breath, sore throat, loss of taste or smell, muscle aches, or headache?: No
History of Present Illness
History of Present Illness:
63-year-old male with past medical history of renal/liver transplant in 2021 done at [facility], status post TURP procedure from 6 days ago, insulin-dependent diabetes, chronic lower extremity DVT who was admitted at this facility and
discharged from here earlier this afternoon around 4:30 PM to [facility] rehab facility presenting back to the emergency department after he states upon getting to [facility] he felt unsafe and as if he would not be cared for properly so
contacted 911 who brought patient back to the ER. Patient has no new physical concerns other than noting he continues to have hematuria which was already explained to him that this was likely going to happen following his TURP. He endorses chronic
lower back pain and right hip pain that he is on multiple medications for including being given a prescription for p.o. Dilaudid which she was sent with to [facility]. Patient has no other concerns at this time.
Past History
Past History
ED Past Medical History: IDDM, Renal failure and Other (BPH, hepatitis C)
ED Past Surgical History: Cardiac (For cardiac stents 2021), Urological and Other (Liver transplant, kidney transplant 2021)
Social History
Tobacco: Non-smoker
Alcohol: None
Drug: Former user
Personal: Single
Living: homeless
Review of Systems
Review of Systems
All Other Systems: ROS reviewed and negative except as documented in HPI and ROS
Phy Exam
Physical Exam
Physical Exam:
GENERAL: Alert , in no apparent distress
EYE: clear conjunctiva b/l
HEAD: NCAT
ENT: mmm.
CARDIAC: Regular rate and rhythm .
LUNGS: Clear breath sounds bilaterally, no acute respiratory distress, no wheezes/rales/rhonchi
ABDOMEN: Soft, without focal tenderness, no r/g, no cvat
Genitourinary: Mejia catheter in place with gross hematuria noted in the catheter tubing and Mejia bag
NEUROLOGICAL: Alert and oriented
SKIN: Warm and dry, skin intact.
MUSCULOSKELETAL: well perfused.
PSYCH: Normal and appropriate interaction.
Scores
Heart Failure Risk
Heart Failure Risk Score: Not Applicable
Heart Score for Chest Pain Patients
STEMI patient?: Not applicable
Withdrawal Assessment of Alcohol
Withdrawal Assessment Completed?: Not applicable
Course
Vital Signs
Initial and Last Documented VS:
Initial Vital Signs
Temp Pulse Resp Pulse Ox
97.7 F 93 14 99
09/13/23 19:13 09/13/23 19:13 09/13/23 19:13 09/13/23 19:13
Last Documented Vital Signs
Temp Pulse Resp BP Pulse Ox
97.7 F 92 9 132/70 98
09/13/23 19:13 09/13/23 20:15 09/13/23 20:15 09/13/23 20:00 09/13/23 19:45
MDM/Problems Addressed
MDM/Problems Addressed:
63-year-old male presenting back to the emergency department roughly 3 hours since he was discharged from inpatient floor upstairs earlier today. There are no new symptoms today and overall patient noting he felt unsafe at the facility had barely
been at the facility prior to calling 911 to come back to the hospital. Based off record review it appears hospitalist team attempted to discharge the patient yesterday to a different facility however they did not have any beds available and
[facility] was willing to accept the patient today and ultimately trying to get the patient to the facility of his choosing when they had a bed available. Patient did not require any further medical intervention as he did not need any further
inpatient medical care and was deemed medically stable for rehab. I do suspect patient's homelessness is likely playing a role in his wish to come back to the emergency department for/attempting to be readmitted. I spoke with the patient that he
has no medical reason for admission to this facility and that he can be disposition back to [facility] however patient refused this and does not want to go back. No case management available at this time of night. Patient will be attempting to
contact a friend to pick him up from the emergency department and patient can be discharged home. There is no further reason for any medical testing. I gave patient information for urology and advised he contact them as he will need his Mejia
catheter removed at a postoperative visit. He is aware of return precautions to the emergency department.
Chronic conditions affecting care: Kidney disease
Acute Exacerbation and/or Progression of Chronic Illness: Kidney disease
*Pulse Oximetry
Patient hypoxic: no
*Critical Care Note
Total Time (30-74mins, 75-104mins- exclusive of procedures): Not Applicable
Data Reviewed
Review of Other/Old Records Reveals: Labs, Records and Discharge Summary
Source: patient and records
ED Attending Note
-
Portions of this chart may have been created with voice recognition software.� Occasional wrong word or��sound alike� substitutions may have occurred due to the inherent limitations of voice recognition software.
Discharge Plan
Departure
Patient Disposition: Home (Routine Discharge)
Date of Disposition: 09/13/23
Time of Disposition: 19:46
Patient with high blood pressure during this ER visit?: No
Discharge Problem:
Status post recent transurethral resection of prostate, Hematuria
Instructions: How to Care for Your Mejia Catheter, Male
Prescriptions:
No Action
aspirin 81 mg Tablet,Delayed Release (Dr/Ec)
81 mg PO DAILY
tacrolimus 1 mg Capsule
3 mg PO Q12H@0800,2000
Patient Comments:
08/15/2023, last filled on 12/23/2023 for 30-day supply.
insulin lispro 100 unit/mL insulin pen
0 sliding scale dose SC DIRECTED
Patient Comments:
08/15/2023, pt. uses this med. on a sliding scale but does not know what that sliding scale is; per pt., if his BS is around 270 he will inject 6 units.
mycophenolate sodium 180 mg Tablet,Delayed Release (Dr/Ec)
180 mg PO Q12H@0800,2000
Patient Comments:
08/15/2023, last filled on 12/23/2023 for 30-day supply.
Dakin's Solution 0.125 % Solution
1 applic topical DAILY Qty: 0 0RF
cyclobenzaprine 10 mg Tablet
10 mg PO Q12H PRN (Reason: muscle spasm) Qty: 60 0RF
acetaminophen 325 mg Tablet
650 mg PO Q6H Qty: 60 0RF
trazodone 50 mg Tablet
50 mg PO HS Qty: 10 0RF
cyclobenzaprine 10 mg Tablet
5 mg PO Q12H PRN (Reason: muscle spasm) Qty: 10 0RF
lidocaine 4 % Adhesive Patch,Medicated
2 patch topical DAILY Qty: 0 0RF
Lokelma 10 gram Powder In Packet
10 g PO MoWeFr@1000 Qty: 0 0RF
Insulin Glargine Lantus [Lantus] 7 UNITS
Subcutaneous Insulin Syringe [Syringe-Insulin] 0 UNIT
As Directed mls/hr SC HS
Ordered By: Norma Pollock MD
Last Taken: 09/12/23 21:57
insulin aspart U-100 100 unit/mL (3 mL) Insulin Pen
7 unit SC AC Qty: 0 0RF
hydromorphone [Dilaudid] 2 mg tablet
2 mg PO Q6H PRN (Reason: severe pain) Qty: 10 0RF
tamsulosin 0.4 mg capsule
0.4 mg PO HS
Referrals:
Geneva Lantigua DO [Family Provider] -
Phu Ann MD [Active] -
()
Activity Restrictions/Additional Instructions:
You need to contact the urology office within the next week to schedule follow-up visit to have your catheter removed
Interventions
Interventions:
*Risk Screen - Suicide Last Done: 09/13/23 19:13
*General Assessment Last Done: 09/13/23 19:13
*Neglect/Abuse Screening Last Done: 09/13/23 19:13
*Nursing Disposition Last Done: 09/13/23 20:58
PB-Dffpmy-Ngribnevhi Assessment Last Done: 09/13/23 19:40
ED-Male Genitourinary Assessment Last Done: 09/13/23 19:40
Discharge Date and Time
Discharge Date/Time: 09/13/23 21:00
Print Language: URDU
[2023-09-13 20:00] VITALS: BP 132/70
== END 2023-09-13 21:00 | disposition home or self-care (01) ==
LOC: EMR 19:05
PROVIDERS: EMERGENCY PHYSICIAN Emergency Medicine; FAMILY PHYSICIAN Family Medicine
DX: Z98.890 Other specified postprocedural states (principal); R31.9 Hematuria, unspecified
CPT/HCPCS: 99282

== ENCOUNTER 2024-06-21 13:36 | Inpatient (IN) | payer MEDICARE, OTHER, SELFPAY ==
[2024-06-20] VITALS (12 sets, daily range): BP systolic 104–150; BP diastolic 57–92; BMI 22.6
--- NOTE | 2024-06-20 10:32 | ED.GENMED ---
History of Present Illness
<Lyndon Yo PA-C - Last Filed: 06/20/24 14:53>
General
Chief Complaint: Abdominal Pain
Source: patient
Exam Limitations: none
Time Seen by Provider: 06/20/24 10:14
History of Present Illness
History of Present Illness:
64-year-old male kidney and liver transplant patient performed at [facility] in February Presents complaining of left lower quadrant abdominal pain and diarrhea. He states his diarrhea and pain and been ongoing for several weeks but diarrhea
was uncontrollable today. He also notes pain in the left side where his kidney transplant is. He notes adequate urine output. He has a history of C. difficile. He is not currently on any antibiotics. He is an insulin-dependent diabetic. He
also notes ongoing chills.
Past History
<Lyndon Yo PA-C - Last Filed: 06/20/24 14:53>
Past History
ED Past Medical History: IDDM, Renal failure and Other (BPH, hepatitis C)
ED Past Surgical History: Cardiac (For cardiac stents 2021), Urological and Other (Liver transplant, kidney transplant 2021)
Social History
Tobacco: Non-smoker
Alcohol: None
Drug: Former user
Personal: Single
Living: homeless
Phy Exam
<MIKE Barnes Last Filed: 06/20/24 14:53>
Physical Exam
Physical Exam:
General: Chronically ill-appearing male no acute respiratory distress
HEENT: Normocephalic mucosa dry heart: Regular rate and rhythm
Lungs: Clear no wheeze
Abdomen is soft tender to left lower quadrant no guarding rebound normal bowel sounds
Extremities: No cyanosis
Skin: Warm no rash
Sepsis
<MIKE Barnes Last Filed: 06/20/24 14:53>
Sepsis Screening
Sepsis Assessment: Sepsis Ruled Out
Sepsis Screen
Sepsis Screen: Sepsis Ruled Out
Date: 06/20/24
Time: 14:53
Course
<Lyndon Yo PA-C - Last Filed: 06/20/24 14:53>
Orders/Labs/Results
Orders:
Orders
06/20/24 10:19
Complete Blood Count/With Diff Urgent
Comprehensive Metabolic Panel Urgent
06/20/24 10:27
0.9% Sodium Chloride 1000 ml [Nss] 1,000 ml IV BOLUS
06/20/24 10:47
Norovirus by PCR Urgent
MARIO Source: Feces/Stool
Specimen Description:
Date Specimen was Collected: 06/20/24
Time Specimen was Collected: 10:44
STOOL [C difficile Antigen & Toxins] Urgent
MARIO Source: Feces/Stool
Specimen Description:
Date Specimen was Collected: 06/20/24
Time Specimen was Collected: 10:44
Stool Culture Urgent
MARIO Source: Feces/Stool
Specimen Description:
Date Specimen was Collected: 06/20/24
Time Specimen was Collected: 10:44
06/20/24 11:31
CT Abd/pel Without Iv Or Oral Urgent
Comment:
Reason For Exam: llq pain, renal transplant
06/20/24 14:22
Urinalysis Reflex To Culture Urgent
Date Specimen was Collected: 06/20/24
Time Specimen was Collected: 14:14
Urine Microscopic Reflex Cult Urgent
Abnormal Lab Results
06/20/24 06/20/24
10:19 14:22
RBC 4.25 L 10^6/uL
(4.70-6.10)
Hct 37.1 L %
(39.0-52.0)
MPV 10.5 H fL
(7.4-10.4)
Abs Immat Gran (auto) 0.1 H 10^3/uL
(0-0.05)
Immature Gran % 0.7 H %
(0-0.5)
Lymphocytes % 16.4 L %
(20.5-51.1)
BUN 30 H mg/dl
(9-20)
Glucose 297 H mg/dl
(70-99)
AST 15 L U/L
(17-59)
Ur Occult Blood Reflex 4+ A
(Negative)
Urine RBC 30-40 A /HPF
(0-2)
Urine Bacteria (Reflex) Few A
(Negative)
Urine Glucose 4+ A
(Negative)
Urine Albumin (Reflex) 2+ A
(Neg - Trace)
06/20/24 10:19
06/20/24 10:19
Vital Signs
Initial and Last Documented VS:
Initial Vital Signs
Temp Pulse Resp BP Pulse Ox
98.8 F 92 18 150/92 100
06/20/24 09:50 06/20/24 09:50 06/20/24 09:50 06/20/24 09:50 06/20/24 09:50
Last Documented Vital Signs
Temp Pulse Resp BP Pulse Ox
98.8 F 83 14 131/72 100
06/20/24 09:50 06/20/24 12:15 06/20/24 12:15 06/20/24 12:00 06/20/24 12:15
<Angelo Wiley MD - Last Filed: 06/20/24 14:34>
Orders/Labs/Results
Orders:
Orders
06/20/24 10:19
Complete Blood Count/With Diff Urgent
Comprehensive Metabolic Panel Urgent
06/20/24 10:27
0.9% Sodium Chloride 1000 ml [Nss] 1,000 ml IV BOLUS
06/20/24 10:47
Norovirus by PCR Urgent
MARIO Source: Feces/Stool
Specimen Description:
Date Specimen was Collected: 06/20/24
Time Specimen was Collected: 10:44
STOOL [C difficile Antigen & Toxins] Urgent
MARIO Source: Feces/Stool
Specimen Description:
Date Specimen was Collected: 06/20/24
Time Specimen was Collected: 10:44
Stool Culture Urgent
MARIO Source: Feces/Stool
Specimen Description:
Date Specimen was Collected: 06/20/24
Time Specimen was Collected: 10:44
06/20/24 11:31
CT Abd/pel Without Iv Or Oral Urgent
Comment:
Reason For Exam: llq pain, renal transplant
06/20/24 14:22
Urinalysis Reflex To Culture Urgent
Date Specimen was Collected: 06/20/24
Time Specimen was Collected: 14:14
Urine Microscopic Reflex Cult Urgent
Abnormal Lab Results
06/20/24 06/20/24
10:19 14:22
RBC 4.25 L 10^6/uL
(4.70-6.10)
Hct 37.1 L %
(39.0-52.0)
MPV 10.5 H fL
(7.4-10.4)
Abs Immat Gran (auto) 0.1 H 10^3/uL
(0-0.05)
Immature Gran % 0.7 H %
(0-0.5)
Lymphocytes % 16.4 L %
(20.5-51.1)
BUN 30 H mg/dl
(9-20)
Glucose 297 H mg/dl
(70-99)
AST 15 L U/L
(17-59)
Ur Occult Blood Reflex 4+ A
(Negative)
Urine RBC 30-40 A /HPF
(0-2)
Urine Bacteria (Reflex) Few A
(Negative)
Urine Glucose 4+ A
(Negative)
Urine Albumin (Reflex) 2+ A
(Neg - Trace)
06/20/24 10:19
06/20/24 10:19
Vital Signs
Initial and Last Documented VS:
Initial Vital Signs
Temp Pulse Resp BP Pulse Ox
98.8 F 92 18 150/92 100
06/20/24 09:50 06/20/24 09:50 06/20/24 09:50 06/20/24 09:50 06/20/24 09:50
Last Documented Vital Signs
Temp Pulse Resp BP Pulse Ox
98.8 F 83 14 131/72 100
06/20/24 09:50 06/20/24 12:15 06/20/24 12:15 06/20/24 12:00 06/20/24 12:15
<Lyndon Yo PA-C - Last Filed: 06/20/24 14:53>
MDM/Problems Addressed
Differential Diagnosis Includes:
Patient with left lower abdominal pain with diarrhea and chills. Question diverticulitis versus colitis versus renal colic versus UTI. Ordered labs to evaluate for electrolyte abnormality. Stool studies ordered to evaluate for C. difficile for
norovirus
EMS blood sugar was 349. Fluids ordered CT ordered
<Lyndon Yo PA-C - Last Filed: 06/20/24 14:53>
*Critical Care Note
Total Time (30-74mins, 75-104mins- exclusive of procedures): Not Applicable
<Lyndon Yo PA-C - Last Filed: 06/20/24 14:53>
Update Note
Update Note:
CT demonstrates findings consistent with liver and kidney transplant. Kidney transplant shows mild hydronephrosis. Urinalysis with some blood but no overwhelming signs of infection. Stool studies negative for C. difficile and norovirus. Fluids
ordered. Discussed with emergency room attending saw the patient as well. Patient's social situation does limit his ability to cope with these issues as he is homeless. He has uncontrollable diarrhea. Will admit to hospital
ED Attending Note
<Lyndon oY PA-C - Last Filed: 06/20/24 14:53>
-
Portions of this chart may have been created with voice recognition software.� Occasional wrong word or��sound alike� substitutions may have occurred due to the inherent limitations of voice recognition software.
<Angelo Wiley MD - Last Filed: 06/20/24 14:34>
ED Attending Note
Patient seen and examined by attending physician: Yes
I performed the substantive portion of visit, reviewed & personally made and approve the management plan that is documented in note by myself or ELSA.: Yes
ED Attending Note:
Patient complaining of diarrhea, left lower quadrant pain and left hip pain. Hip pain has been ongoing. Diarrhea for weeks. No blood or mucus in the stool. No recent antibiotics. No fever or chills. Patient lives out of his car.
On exam patient is nontoxic in no distress. Warm and dry. No respiratory distress. Regular rate and rhythm no murmur. Abdomen soft with mild left lower quadrant tenderness. No rebound or guarding no mass or hernia. No pain with hip rotation.
Leg has good perfusion is warm and dry.
CT scan shows a hydronephrosis at the kidney site however no other acute abnormalities. Not totally convinced this explains his pain. Diarrhea has been ongoing. Stool culture pending. Patient is very uncomfortable with being discharged. Will be
admitted for further care
Discharge Plan
Departure
Patient Disposition: Admit
Date of Disposition: 06/20/24
Time of Disposition: 14:52
Presentation/result/management discussed w/ accepting MD/DO: Hospitalist
Discharge Problem:
Diarrhea
Prescriptions:
No Action
aspirin 81 mg Tablet,Delayed Release (Dr/Ec)
81 mg PO DAILY
tacrolimus 1 mg Capsule
3 mg PO Q12H@
Patient Comments:
08/15/2023, last filled on 12/23/2023 for 30-day supply.
insulin lispro 100 unit/mL insulin pen
0 sliding scale dose SC DIRECTED
Patient Comments:
08/15/2023, pt. uses this med. on a sliding scale but does not know what that sliding scale is; per pt., if his BS is around 270 he will inject 6 units.
mycophenolate sodium 180 mg Tablet,Delayed Release (Dr/Ec)
180 mg PO Q12H@
Patient Comments:
08/15/2023, last filled on 12/23/2023 for 30-day supply.
Dakin's Solution 0.125 % Solution
1 applic topical DAILY Qty: 0 0RF
cyclobenzaprine 10 mg Tablet
10 mg PO Q12H PRN (Reason: muscle spasm) Qty: 60 0RF
acetaminophen 325 mg Tablet
650 mg PO Q6H Qty: 60 0RF
trazodone 50 mg Tablet
50 mg PO HS Qty: 10 0RF
cyclobenzaprine 10 mg Tablet
5 mg PO Q12H PRN (Reason: muscle spasm) Qty: 10 0RF
lidocaine 4 % Adhesive Patch,Medicated
2 patch topical DAILY Qty: 0 0RF
Lokelma 10 gram Powder In Packet
10 g PO MoWeFr@1000 Qty: 0 0RF
Insulin Glargine Lantus [Lantus] 7 UNITS
Subcutaneous Insulin Syringe [Syringe-Insulin] 0 UNIT
As Directed mls/hr SC HS
Ordered By: Norma Pollock MD
Last Taken: Unknown
insulin aspart U-100 100 unit/mL (3 mL) Insulin Pen
7 unit SC AC Qty: 0 0RF
hydromorphone [Dilaudid] 2 mg tablet
2 mg PO Q6H PRN (Reason: severe pain) Qty: 10 0RF
tamsulosin 0.4 mg capsule
0.4 mg PO HS
Referrals:
UNKNOWN - PT NOT,INTERVIEWE [Family Provider] -
Interventions
Interventions:
*Risk Screen - Suicide Last Done: 06/20/24 09:50
*General Assessment Last Done: 06/20/24 09:50
*Neglect/Abuse Screening Last Done: 06/20/24 09:50
*ED COVID-19 Vaccine History Last Done: 06/20/24 09:50
YD-Wxrast-Gcgatjzvii Assessment Last Done: 06/20/24 12:23
Discharge Date and Time
Print Language: JAPANESE
[2024-06-20 10:35] LABS: % Basophils 0.4 % (0-2); % Eosinophils 3.5 % (0-6); % Immature Granulocytes 0.7 % (0-0.5); % Lymphocytes 16.4 % (20.5-51.1); Absolute Eosinophils 0.3 10^3/uL (0-0.7); Absolute Immature Granulocytes 0.1 10^3/uL (0-0.05); Absolute Lymphocytes 1.4 10^3/uL (1.2-3.4); Absolute Monocytes 0.4 10^3/uL (0.1-0.6); Absolute Neutrophils 6.2 10^3/uL (1.4-6.5); Hematocrit 37.1 % (39.0-52.0); Hemoglobin 13.1 g/dL (13.0-18.0); Mean Corp Hgb Conc. 35.3 g/dL (33.0-37.0); Mean Corpuscular Hgb 30.8 pg (27.0-31.0); Mean Corpuscular Volume 87.3 fL (80.0-94.0); Mean Platelet Volume 10.5 fL (7.4-10.4); Nucleated Red Blood Cells % 0 % (-); Platelet Count 134 10^3/uL (130-400); Red Blood Cell Count 4.25 10^6/uL (4.70-6.10); Red Cell Dist. Width 14.4 % (11.5-14.5); White Blood Cell Count 8.3 10^3/uL (4.8-10.8)
[2024-06-20 10:48] LABS: ALT (SGPT) 14 U/L (0-50); AST (SGOT) 15 U/L (17-59); Alkaline Phosphatase 120 U/L (38-126); Blood Urea Nitrogen 30 mg/dl (9-20); Calcium 9.2 mg/dl (8.4-10.2); Carbon Dioxide 25 mmol/L (22-30); Chloride 103 mmol/L (98-107); Estimated Creatinine Clearance 73 ml/min; Glucose 297 mg/dl (70-99); Potassium 4.7 mmol/L (3.5-5.1); Sodium 135 mmol/L (135-145); Total Bilirubin 1.2 mg/dl (0.2-1.3); Total Protein 6.7 g/dl (6.3-8.2); eGFR > 60.00
[2024-06-20] MEDS: NSS 1000 IV ×2 (10:51→20:03)
[2024-06-20 11:00] LABS: Albumin 4.1 g/dl (3.5-5.0)
[2024-06-20 14:34] LABS: Urine Albumin 2+ (Neg - Trace); Urine Bilirubin Negative (Negative); Urine Character Clear (Clear); Urine Color Yellow; Urine Glucose 4+ (Negative); Urine Ketone Negative (Negative); Urine Leukocyte Negative (Negative); Urine Nitrite Negative (Negative); Urine Occult Blood 4+ (Negative); Urine Specific Gravity 1.025 (<1.030); Urine Urobilinogen Negative (Neg - 1+)
[2024-06-20 14:41] LABS: Urine Mucus Few
[2024-06-20 14:43] LABS: Urine Red Blood Cell 30-40 /HPF (0-2)
[2024-06-20 14:44] LABS: Urine Bacteria Few (Negative)
--- NOTE | 2024-06-20 15:03 | HPS.HSE ---
Family Physician
-
Family Physician: INTERVIEWE UNKNOWN - PT NOT
Chief Complaint
-
Diarrhea
History of Present Illness
Patient is a 64 y/o male past medical history of coronary artery disease, liver/kidney transplant, IDDM, Hep C and DVT s/p IVF filter who presents with diarrhea. Patient reports on going diarrhea for about 3 weeks. Today the diarrhea was
controllable prompting him to come to the emergency department for evaluation. He reports 5 episodes of diarrhea already today. He denies any bloody diarrhea. He reports taking Imodium without improvement. He reports some intermittent left lower
quadrant abdominal pain. He denies fevers, but has noted chills. He denies any recent antibiotics, recent tracel, or usual food intake.
Medical History
Past Medical History
Past Medical History: Reports Other
Additional Past Medical History:
Coronary Artery Disease
Diabetes Mellitus, Type II
Cirrhosis secondary Hepatitis C
BPH
DVT s/p IVC Filter
Past Surgical History: Reports Other
Additional Past Surgical History:
Kidney Transplant
Liver Transplant
Cardiac Stents
Right Hip ORIF
TURP
Social History
Tobacco: Former Smoker (Quit 14 years ago)
Alcohol: None
Drug: None
Family History
Family History: Not pertinent
Allergies / Home Medications
Allergies reflects when Allergies were last updated in [facility].
Home Medications with original date entered in [facility]
Allergy/Medication List:
Allergies
Allergy/AdvReac Type Severity Reaction Status Date / Time
No Known Allergies Allergy Unverified 06/16/23 10:49
Home Medications
aspirin 81 mg tablet,delayed release 81 mg PO DAILY 08/15/23
insulin lispro 100 unit/mL subcutaneous pen 0 sliding scale dose SC DIRECTED 08/15/23
mycophenolate sodium 180 mg tablet,delayed release 180 mg PO Q12H@0800,199908/15/23
oxycodone 10 mg tablet 10 mg PO BID PRN severe pain 08/15/23
tacrolimus 1 mg capsule, immediate-release 3 mg PO Q12H@0800,2000 08/15/23
Review of Systems
-
A 12 point ROS was completed and negative except as noted: Yes
Constitutional: Denies Fever
Respiratory: Denies Cough or Trouble Breathing
Cardiac: Denies Chest Pain or Palpitations
Abdomen/GI: Reports See HPI
Physical Exam
Vital Signs
Vital Signs
Temp Pulse Resp BP Pulse Ox
98.8 F 83 14 131/72 100
06/20/24 09:50 06/20/24 12:15 06/20/24 12:15 06/20/24 12:00 06/20/24 12:15
Physical Exam
General: Comfortable and Conversant
HEENT: Anicteric and Moist mucous membranes
Respiratory: Clear and Non Labored Respirations
Cardiac: S1/S2 and Regular Rhythm
GI: Soft, Non Tender and Non Distended
Rectal: Deferred by Provider
Musculoskeletal: No Clubbing, No Cyanosis and No Edema
Skin: Warm and Dry
Neuro: Awake, Alert, Oriented and Nonfocal/grossly intact
Psych: Calm
Laboratory Results
-
06/20/24 10:19
06/20/24 10:19
Laboratory Results
Total Bilirubin 1.2 mg/dl (0.2-1.3) 06/20/24 10:19
AST 15 U/L (17-59) L 06/20/24 10:19
ALT 14 U/L (0-50) 06/20/24 10:19
Alkaline Phosphatase 120 U/L (38-126) 06/20/24 10:19
Data Reviewed
-
CT Scan: Report Reviewed by me
Lab Data: Labs Reviewed by me
Impression/Plan
-
Persistent Diarrhea
-Consult GI
-Stool negative for C Diff, and Norovirus - Await stool culture - Add Ova and Parasite
-Allow clear liquids
Right Hip Pain
-Patient reports chronic pain since ORIF last year. He states he has not seen ortho as outpatient
-Check Hip X-Ray
-Consult PT/OT
-Start gabapentin
-Encouraged patient to follow-up with Orthopedic surgery as outpatient
Left Hydronephrosis of transplant kidney
-Renal function stable compared to prior
-Patient needs follow-up with transplant team as outpatient
Kidney / Liver Transplant
-Continue tacrolimus and mycophenolate
-Check tacrolimus level
Diabetes Mellitus, Type II
-Continue Lantus and Novolog
-Check HgbA1c
-Monitor sugars and continue coverage insulin
Coronary Artery Disease s/p Stent
-Continue aspirin
Hx DVT s/p IVC filter
DVT Proph: SC Heparin
Code Status: Full Code
--- NOTE | 2024-06-20 15:04 | PHANOTE ---
Addendum entered by Noelle Mcqueen 06/20/24 20:18:
Patient continues to ask for meds he has not filled and meds that start with random letters, patient asked for med starting with a the letter M, patient back on September of 2023 filled midodrine 10mg tid, mirtazapine 15mg hs, and mycophenolic 180mg bid
for 7 days
Original Note:
med rec note- patient claims he take something at bedtime to calm his leg before bedtime, he stated that the med started with an R and could be 30mg. there nothing in pdmp or nothing current in [facility]. pharmacy is not current either event vera patient
stated he goes to [facility] and takes his medication regular
--- NOTE | 2024-06-20 15:43 | W.PN.UPDATE ---
Update Note
Progress Note Update
This is an addendum to H&P written by MALCOLM Roman
I saw and examined the patient.
The COMPOUNDER HELPER's note was reviewed and I agree with the note.
Comment:
Mr. Buster Crawford is a 64 yo with hx liver/kidney transplant 2021, chronic immunosuppression on Tacrolimus and Mycophenolate, CAD s/p PCI 03/01, IDDM presents with 3 weeks of frequent non-blood diarrhea.
Triage VS: T 98.8, P 92, RR 18, BP 150/92, Spo2 100%
LABS: WBC 8.3, Hg 13.1, PLT 134, Na 135, K+ 4.7, Cl 103, CO2 25, BUN 30, Cr 1.1, Glucose 297, T. Bili 1.2, AST 15, ALT 14, Alk Phos 120
MAR: 1L IVF
CT A/P
IMPRESSION:
1. Moderate hydronephrosis of transplant kidney at the left iliac fossa, worse as compared with the prior study. No ureteral filling defects identified at CT.
2. Post liver transplant.
3. Findings related to portal hypertension with splenomegaly and large number of dilated and tortuous varices in the left upper quadrant.
4. Small cysts and calculus of the [place] left kidney as seen previously.
5. Urinary bladder trabeculation, question chronic outlet obstruction or neurogenic bladder.
Non-Bloody Diarrhea
-C. Diff and Norovirus negative
-stool culture pending
-will add on ova and parasites
-given chronicity of 3 weeks, and the fact that patient is immunosuppressed will ask GI to help evaluate, see if need for scope (rule out CMV)
-IVF
Hx Liver/kidney transplant 2021
Chronic immunosuppression on Tacrolimus and Mycophenolate
-continue home regimen
-F/U Tacrlomus level
-monitor labs
Chronic Right hip pain
Hx hip fracture s/p OR 07/01
-patient describes pain traveling down right leg with positive straight leg test
-outpatient steroid injection discussed at last hospitalization with [facility] - will request records
-start low dose Gabapentin and adjust as able
CAD s/p PCI 03/01
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
IDDM
-lower dose insulin, adjust as needed
-ISS
[2024-06-20] MEDS: NEURONTIN 100 MG PO ×2 (17:45→20:01)
[2024-06-20 20:45] LABS: Glucose - Point of Care 309 mg/dl (70-99)
--- NOTE | 2024-06-20 20:45 | PTCARENOTE ---
Pt received from ED via stretcher at 2034. Pt AAOX3, VSS, and able to ambulate into room with walker and assistance. Pt complains moderate pain in his Rt heel/foot. Pt explains it is chronic from a pervious serious infection. Pt receptive to room
and call prasad. Pt bed in lowest position and call prasad within reach. Pt educated in importance of call prasad usage, pt states he doesn't want to have to call someone every time he has to get up. RN explains that pt is currently unstable on feet and
staff needs to help keep him safe from falls. Bed alarm placed and plugged in. Will continue with current plan of care.
[2024-06-20] MEDS: MYFORTIC DELAYED REL. 180 MG PO (20:52)
[2024-06-20] MEDS: PROGRAF 3 MG PO (20:53)
[2024-06-20] MEDS: NOVOLOG FLEXPEN 3 UNITS SC (20:55)
[2024-06-20] MEDS: NOVOLOG FLEXPEN-MODERATE RESISTANCE 7 UNITS SC (20:55)
[2024-06-20 22:34] LABS: Glucose - Point of Care 184 mg/dl (70-99)
[2024-06-20] MEDS: LANTUS 0.12 UNITS SC (22:34)
[2024-06-20] MEDS: ROXICODONE 5 MG PO (23:47)
[2024-06-21 06:00] VITALS: BMI 22.6
--- NOTE | 2024-06-21 07:18 | CON.GI ---
Addendum entered and electronically signed by Marco Antonio Villalobos MD 06/21/24 19:07:
I saw and examined the patient.
The PA's note was reviewed and I agree with the note.
Comment:
64 year old male with h/o HCV cirrhosis s/p liver/kidney transplant at [facility] in 2021, C diff post transplant, CAD with prior stenting, IDDM, DVT with filter who p/w chronic diarrhea.
Impression / Rec:
1. Chronic diarrhea - reports having watery diarrhea for past 6 weeks or so. Multiple diarrhea per day. He is currently homeless, but reports he had been compliant with his immunosuppressive meds. Denies fever/chills/vomiting. Denies sick
contacts. Stool studies are pending. Given his transplant hx and immunosuppressive meds, CMV colitis will need to be excluded if stool studies are -ve.
Original Note:
Consultation
-
Date/Time Consultation Requested: 06/20/24 1800
Date/Time Consultation Performed: 06/21/24 0930
Requesting Provider: Jhoana Roman PA-C
Performing Provider: ALTON Ray, Marco Antonio Villalobos MD
Reason for Consultation: diarrhea
Medical History
Chief Complaint / HPI
Chief Complaint: diarrhea
History of Present Illness:
Pt is a 64yo with hx hep C cirrhosis with prior liver/kidney transplant at [facility] in 2021 on mycophenolate and tacrolimus, c-diff post transplant, hx Esophageal varices, prior stenting ? esophageal vs biliary, CAD with prior stenting, IDDM, DVT
with filter, BPH with prior TURP, ORIF hip, prior foot infection presents with diarrhea for 6 weeks. On admission noted with stable labs with elevated glucose 297, bun 30 with normal creat. Culture with neg c-diff, Giardia, crypto, and norovirus
with other cx pending. In review with patient he did go to [place] for eval and had 8 days stay. He recall stool studies completed and denies knowledge of any infection. He denies hx flex or colonoscopy during admission. No change in
Immunosuppression medication doses or other new medications. CT on admission with moderate hydro of transplanted kidney worsening from prior stenting, post liver transplant, portal HTN, splenomegaly, cyst and calculus of [place] kidney, ? bladder
outlet obstruction.
Pt admits diarrhea is about 5 times per day. Initially large volume then less with some nocturnal stools. He dose have some lower abdominal pain. Pt denies dysphagia, GERD, nausea, vomiting, constipation or rectal bleeding. Last EGD/colon
at [facility] prior to transplant.
Past Medical History
Past Medical History: CAD, IDDM and Other (hep C with cirrhosis and prior liver/kidney transplant - 2021 [facility], DVT with filter, BPH, prior foot infection, c-diff )
Past Surgical History: Cardiac (stents ), Orthopedic (hip ORIF), Urological (TURP) and Other (liver/kidney transplant )
Social History
Tobacco: Non-Smoker
Alcohol: None
Drug: Marijuana (in past )
Living: Alone
Employment: Disabled
Family History
Family History: Other (no family hx liver issues )
Allergies / Home Medications
Allergy/AdvReac Type Severity Reaction Status Date / Time
No Known Allergies Allergy Unverified 06/16/23 10:49
�Medication �Instructions �Recorded
aspirin 81 mg tablet,delayed 81 mg PO DAILY Blood Clot 08/15/23
release Prevention/Tx
mycophenolate sodium 180 mg 180 mg PO Q12H@0800,1999 Kidney 08/15/23
tablet,delayed release transplant
tacrolimus 1 mg capsule, 3 mg PO Q12H@0800,1999 kidney 08/15/23
immediate-release transplant
insulin glargine 100 unit/mL (3 20 unit SC HS 06/20/24
mL) subcutaneous pen (Lantus
Solostar U-100 Insulin)
insulin lispro 100 unit/mL 7 sliding scale dose SC AC 06/20/24
subcutaneous pen
Review of Systems
-
History Source: Patient
Constitutional: Reports Chills
EENT: Reports No Symptoms
Respiratory: Reports No Symptoms
Cardiac: Reports No Symptoms
Abdomen/GI: Reports Abdominal Pain and Diarrhea
: Reports No Symptoms
Musculoskeletal: Reports No Symptoms
Skin: Reports No Symptoms
Neurological: Reports Weakness
Endocrine: Reports No Symptoms
Hematologic/Lymphatic: Reports No Symptoms
Vital Signs
Temp Pulse Resp BP Pulse Ox
97.5 F 85 14 104/57 100
06/20/24 23:30 06/20/24 23:30 06/20/24 23:30 06/20/24 23:30 06/20/24 23:30
Physical Exam
Exam
General: Well Developed, Well Nourished and No Apparent Distress
HEENT: Normocephalic and Anicteric
Respiratory: Clear
Cardiac: Regular Rhythm
GI: Soft, Non Distended, Tender (mild lower tenderness) and Other (mid abd scar)
Musculoskeletal: No Clubbing and No Cyanosis
Skin: Warm and Dry
Neuro: Awake, Alert and AO x 3
Psych: Calm
Results
WBC 8.3 10^3/uL (4.8-10.8) 06/20/24 10:19
Hgb 13.1 g/dL (13.0-18.0) 06/20/24 10:19
Hct 37.1 % (39.0-52.0) L 06/20/24 10:19
MCV 87.3 fL (80.0-94.0) 06/20/24 10:19
Plt Count 134 10^3/uL (130-400) 06/20/24 10:19
Absolute Neuts (auto) 6.2 10^3/uL (1.4-6.5) 06/20/24 10:19
Sodium 135 mmol/L (135-145) 06/20/24 10:19
Potassium 4.7 mmol/L (3.5-5.1) 06/20/24 10:19
Chloride 103 mmol/L (98-107) 06/20/24 10:19
Carbon Dioxide 25 mmol/L (22-30) 06/20/24 10:19
BUN 30 mg/dl (9-20) H 06/20/24 10:19
Creatinine 1.1 mg/dL (0.7-1.3) 06/20/24 10:19
Calcium 9.2 mg/dl (8.4-10.2) 06/20/24 10:19
Total Bilirubin 1.2 mg/dl (0.2-1.3) 06/20/24 10:19
AST 15 U/L (17-59) L 06/20/24 10:19
ALT 14 U/L (0-50) 06/20/24 10:19
Alkaline Phosphatase 120 U/L (38-126) 06/20/24 10:19
Diagnostic Image Results:
06/21/24 CT Abd/pel Without Iv Or Oral
1. Moderate hydronephrosis of transplant kidney at the left iliac fossa, worse as compared with the prior study. No ureteral filling defects identified at CT.
2. Post liver transplant.
3. Findings related to portal hypertension with splenomegaly and large number of dilated and tortuous varices in the left upper quadrant.
4. Small cysts and calculus of the [place] left kidney as seen previously.
5. Urinary bladder trabeculation, question chronic outlet obstruction or neurogenic bladder.
Prior GI Procedures:
EGD: last prior to transplant [facility]
Colonoscopy: last prior to transplant
Assessment / Plan
-
Pt is a 64yo with hx hep C cirrhosis with prior liver/kidney transplant at [facility] in 2021 on mycophenolate and tacrolimus, c-diff post transplant, hx Esophageal varices, prior stenting ? esophageal vs biliary, CAD with prior stenting, IDDM, DVT
with filter, BPH with prior TURP, ORIF hip, prior foot infection presents with diarrhea for 6 weeks. On admission noted with stable labs with elevated glucose 297, bun 30 with normal creat. Culture with neg c-diff, Giardia, crypto, and norovirus
with other cx pending. In review with patient he did go to [place] for eval and had 8 days stay. He recall stool studies completed and denies knowledge of any infection. He denies hx flex or colonoscopy during admission. No change in
Immunosuppression medication doses or other new medications.CT on admission with moderate hydro of transplanted kidney worsening from prior stenting, post liver transplant, portal HTN, splenomegaly, cyst and calculus of [place] kidney, ? bladder
outlet obstruction.
-diarrhea
-hx liver/kidney transplant on chronic immunosuppression
-hx c-diff post transplant
-abnormal CT with moderate hydro of transplanted kidney worsening from prior stenting, cyst and calculus of [place] kidney, ? bladder outlet obstruction
-thrombocytopenia
-chronic hip pain
other med problems:
-hx prior EV with ? stent
-CAD with prior stenting
-IDDM
-hx DVT with prior filter
-BPH with TURP
PLAN:
etiology of diarrhea related to infectious source (pt reports neg testing at [place]), CMV at risk with chronic immunosuppression, side effect of immunosuppression vs other
await stools studies neg c-diff, Giardia, crypto, and norovirus with other cx pending
await records of [place] work up and prior [facility] records of liver transplant hx and ? stent
I asked nursing to record and track all stools and volume
will allow ADA, low residue, low lactose diet
if not improving consider flex to rule out CMV
will need to follow up at [facility] to review immunosuppression if concern for side effects
tac level sent by hospitalist
per hospitalist OP follow up for kidney finding on imaging
-
-
Thank you for consultation and allowing me to participate in the patient's care. Please call the [facility] physician during the after hours with any questions or concerns.
[2024-06-21 07:37] VITALS: BP 137/75
[2024-06-21 07:59] LABS: Glucose - Point of Care 109 mg/dl (70-99)
[2024-06-21 08:43] LABS: Hemoglobin 11.3 g/dL (13.0-18.0); Mean Corp Hgb Conc. 35.3 g/dL (33.0-37.0); Mean Corpuscular Hgb 30.9 pg (27.0-31.0); Mean Corpuscular Volume 87.4 fL (80.0-94.0); Mean Platelet Volume 10.3 fL (7.4-10.4); Platelet Count 113 10^3/uL (130-400); Red Blood Cell Count 3.66 10^6/uL (4.70-6.10); Red Cell Dist. Width 14.4 % (11.5-14.5); White Blood Cell Count 6.4 10^3/uL (4.8-10.8)
[2024-06-21 09:15] VITALS: BP 133/78; PULSE 85
[2024-06-21 09:29] LABS: Blood Urea Nitrogen 26 mg/dl (9-20); Calcium 8.6 mg/dl (8.4-10.2); Carbon Dioxide 23 mmol/L (22-30); Chloride 110 mmol/L (98-107); Estimated Creatinine Clearance 70 ml/min; Glucose 99 mg/dl (70-99); Potassium 4.3 mmol/L (3.5-5.1); Sodium 138 mmol/L (135-145); eGFR > 60.00
[2024-06-21 09:31] VITALS: BP 133/78; PULSE 85
[2024-06-21 09:46] VITALS: BP 133/78; PULSE 85
[2024-06-21 09:52] LABS: TSH Reflex To Free T4 1.14 uIU/ml (0.47-4.68)
[2024-06-21 10:23] LABS: Glycohemoglobin (HgbA1c) 6.6 % (4.0-5.6)
[2024-06-21] MEDS: NOVOLOG FLEXPEN-MODERATE RESISTANCE SC ×2 (11:01→15:28)
[2024-06-21] MEDS: NOVOLOG FLEXPEN SC ×2 (11:27→15:27)
[2024-06-21] MEDS: ASPIR LOW (ENTERIC COATED) 81 MG PO (11:28)
[2024-06-21] MEDS: NEURONTIN 100 MG PO ×2 (11:28→20:50)
[2024-06-21] MEDS: MYFORTIC DELAYED REL. 180 MG PO ×2 (11:28→20:50)
[2024-06-21] MEDS: PROGRAF 3 MG PO ×2 (11:29→20:53)
--- NOTE | 2024-06-21 11:30 | WOUNDNOTE ---
[facility] RN note: Patient seen for pressure injury census report for R heel DTI on admission. Patient has 2 small red ecchymotic areas on his R heel he said occurred while in rehab because he was using his R heel to push up in bed. Patient admitted with
what appears to be a stage 1 R heel pressure injury. Protective foam dressing changed on heels. Patient keeping his heels off bed with pillow. Air chair cushion added on top of pillow to help off load heels. Patient turns self in bed and plans to go
home when discharged. Sacral skin intact without redness. Instructed patient local care to heels with moisture lotion or Vaseline and continue heel off loading in bed. Patient verbalized understanding. Patient is on a [employer] air bed and reports a
good appetite. Discussed with NIELS Lomas.
[2024-06-21] MEDS: NSS 1000 IV ×2 (11:33→23:00)
--- NOTE | 2024-06-21 12:39 | CM ---
CM reviewed chart, patient seen bedside, initial assessment completed. Patient reports he resides in his truck, for 'awhile'. Patient reports he does have family local but they do not want anything to do with patient. Patient reports he has a
rolling walker that he uses for ambulation, reports history of [facility] in past. Patient reports PCP Geneva Lantigua, pharmacy [facility], confirms prescription coverage. CM discussed PT recommendations of outpatient PT, patient reports he
prefers SNF rehab. 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 GUILLORY provided, refused to sign, placed in chart, patient provided with chart. CM will continue
to follow for all discharge planning needs.
Plan; no needs likely
--- NOTE | 2024-06-21 14:25 | W.PN.HOSP.TC ---
Addendum entered and electronically signed by Lucas Collado MD 06/21/24 21:39:
Attending Addendum-
I saw and evaluated the patient. I reviewed the resident�s note and agree with findings and plan as documented in the resident�s note. Sub: No diarrhea today. No fevers chills. states he is nauseous. Has eaten multiple cups of Jello and tolerating
well. Full 12 point ROS reviewed and negative except as documented Exam: Vitals reviewed in chart GEN-NAD heart RRR lungs clear abd soft LE no edema
Plan:
#Persistent Chronic Diarrhea
-GI - for possible flex sig to r/o CMV colitis is stool studies negative
-Stool negative for C Diff, and Norovirus - Await stool culture and Ova and Parasite
-advance to low res diet
#Right Hip Pain
-Patient reports chronic pain since ORIF last year. He states he has not seen ortho as outpatient
-Hip X-Ray 1. Mild osteoarthritis in the right hip.
2. Chronic healed intertrochanteric fracture of the right proximal femur with a dynamic hip screw in place.
-Consult PT/OT
-Start gabapentin
-pain control- requesting narcs
-Encouraged patient to follow-up with Orthopedic surgery as outpatient
# Left Hydronephrosis of transplant kidney
-Renal function stable
-ABD CT-Moderate hydronephrosis of transplant kidney at the left iliac fossa, worse as compared with the prior study.
-Patient needs follow-up with transplant team and uro as outpatient
# Kidney / Liver Transplant
-h/o hep C
-Continue tacrolimus and mycophenolate
-Check tacrolimus level
# Diabetes Mellitus, Type II
-Continue Lantus and Novolog
-Check HgbA1c
-Monitor sugars and continue coverage insulin
# Coronary Artery Disease s/p Stent
-Continue aspirin
Hx DVT s/p IVC filter
DVT Proph: SC Heparin
Code Status: Full Code
ACP
Patient consented to discuss, was alone, time spent explanation of advance directives, changes in health status, patient�s health care wishes if the patient becomes unable to make health decisions, goals of care, code status, and prognosis- 16
minutes
Time spent coordinating care, review of plan of care with resident, personally reviewed previous records in EMR, med rec, labs, radiology, d/w nursing, family total time documented is exclusive of any additional time listed that was spent in advance
care planning discussion -� 52 minutes
Original Note:
Today's Communication/Plan
-
-CBC, BMP follow
-Tacrolimus level pending, stool culture pending
-Follow stool frequency with volume
-Follow Urine volume
Assessment / Plan
Assessment / Plan
64 year old male has a PMH of prior liver/kidney transplant at [facility] in 2021 (on mycophenolate and tacrolimus for 2.5 years), hep C cirrhosis, hx of c-diff post transplant and a recent one 7 months ago ) hx of Esophageal varices,, CAD (with
stents), IDDM, DVT with IVF filter, BPH s/p TURP, and Right ORIF hip and hx of foot infection. He was admitted with 6 weeks duration of diarrhea which got worsen yesterday and he felt very weak. At admission his lab results were significant for
elevated glucose to 297 and UA showed occult blood 4(+). His abdominal CT reported moderate hydro of transplanted kidney worsening from prior stenting, post liver transplant, portal HTN, splenomegaly, cyst and calculus of [place] kidney and Urinary
bladder trabeculation (question chronic outlet obstruction or neurogenic bladder).
Problem list
Diarrhea
Hx of C-Diff
Hx of kidney/liver transplant on immunosuppressants
Left Hydronephrosis of transplant kidney
Trombocytopenia
Chronic Right hip pain
Diabetes Mellitus, Type II
Coronary Artery Disease with stent
hx of DVT with prior filter
BPH s/p TURP
#Diarrhea
-On immunosuppression due liver/kidney transplant in 2021
-Continue tacrolimus and mycophenolate
-Tacrolimus level pending
-Hx c-diff 7 months ago/recovered with fidaxomicin, per patient report
-C diff, norovirus negative, Giardia, crypto, negative /stool culture pending
-HIV pending
-GI on board/concern for CMV with a plan with flex to rule out CMV if diarrhea persists
#Hydronephrosis of transplant kidney
-Was seen by transplant team one month ago/told no issues
-Cr 1.1 (better than baseline) GFR>60 ml
-Follow Urine output
#Diabetes Mellitus, Type II
-Continue Lantus and Novolog
-HgbA1c 6.6
-ISS
#Trombocytopenia
-Plt 131
-Follow CBC
#Chronic Right hip pain
-Hip X ray: No acute abnormality: Chronic healed intertrochanteric fracture of the right proximal femur with a dynamic hip screw in place.
-Continue gabapentin -dose can be adjusted
-PT/OT assessment
#Coronary Artery Disease with stent
-Continue aspirin
Hx DVT s/p IVC filter
DVT Proph: SC Heparin
Code Status: Full Code
.
Anticipated Discharge: 24 - 48 hours
Subjective/Interval History
-
Date of Service: June 21, 2024
Patient reports some lower abdominal pain and right lateral thigh pain. Reports his diarrhea stopped since yesterday.
Objective Data
-
Labs:
Laboratory Results
06/21/24
07:01
WBC 6.4
Hgb 11.3 L
Hct 32.0 L
Plt Count 113 L
Sodium 138
Potassium 4.3
Chloride 110 H
Carbon Dioxide 23
BUN 26 H
Creatinine 1.1
Glucose 99
Calcium 8.6
Vital Signs:
Vital Signs
Temp Pulse Resp BP Pulse Ox
97.6 F 86 24 137/75 100
06/21/24 07:37 06/21/24 07:37 06/21/24 07:37 06/21/24 07:37 06/21/24 07:37
I&O
06/20/24 06/21/24 06/22/24
06:59 06:59 06:59
Intake Total 960 / 960
Output Total 250 / 250
Balance 960 / 960 -250 / -250
Review of Systems
-
History Source: Patient
EENT: Reports No Symptoms Reported
Respiratory: Reports No Symptoms
Cardiac: Reports No Symptoms
Abdomen/GI: Reports Abdominal Pain and Diarrhea
Genitourinary: Reports No Symptoms
Musculoskeletal: Reports Joint Pain (right hip pain )
Skin: Reports No Symptoms
Neuro: Reports No Symptoms
Endocrine: Reports No Symptoms
Physical Exam
-
General: Well Developed, Well Nourished and No Apparent Distress
HEENT: Normocephalic and Atraumatic
Respiratory: Clear to Auscultation
Cardiac: Regular Rhythm and S1/S2
GI: Soft, Nondistended, Tender (lower abdominal area pain ) and Other (abdominal scar )
Musculoskeletal: No Clubbing and No Cyanosis
Skin: Warm
Neuro: Awake, Alert, Oriented and AO x 3
Psych: Calm
[2024-06-21 15:44] VITALS: BP 121/76
[2024-06-21 16:55] LABS: HIV Combo Negative (Negative)
[2024-06-21 17:31] LABS: Glucose - Point of Care 276 mg/dl (70-99)
[2024-06-21] MEDS: NOVOLOG FLEXPEN 3 UNITS SC (18:40)
[2024-06-21] MEDS: NOVOLOG FLEXPEN-MODERATE RESISTANCE 5 UNITS SC (18:42)
[2024-06-21 21:57] LABS: Glucose - Point of Care 198 mg/dl (70-99)
[2024-06-21] MEDS: LANTUS 0.12 UNITS SC (22:56)
[2024-06-21 23:57] VITALS: BP 124/70
[2024-06-22 06:00] VITALS: BMI 22.9
[2024-06-22 06:06] LABS: Hematocrit 30.3 % (39.0-52.0); Hemoglobin 10.8 g/dL (13.0-18.0); Mean Corp Hgb Conc. 35.6 g/dL (33.0-37.0); Mean Corpuscular Hgb 30.9 pg (27.0-31.0); Mean Corpuscular Volume 86.8 fL (80.0-94.0); Mean Platelet Volume 10.5 fL (7.4-10.4); Platelet Count 106 10^3/uL (130-400); Red Blood Cell Count 3.49 10^6/uL (4.70-6.10); Red Cell Dist. Width 14.1 % (11.5-14.5); White Blood Cell Count 6.2 10^3/uL (4.8-10.8)
[2024-06-22 06:13] LABS: INR 1.04; PT 13.9 Sec (11.4-14.6)
[2024-06-22 06:35] LABS: ALT (SGPT) 11 U/L (0-50); AST (SGOT) 14 U/L (17-59); Albumin 3.2 g/dl (3.5-5.0); Alkaline Phosphatase 80 U/L (38-126); Blood Urea Nitrogen 28 mg/dl (9-20); Calcium 8.7 mg/dl (8.4-10.2); Carbon Dioxide 23 mmol/L (22-30); Chloride 106 mmol/L (98-107); Estimated Creatinine Clearance 59 ml/min; Glucose 271 mg/dl (70-99); Potassium 4.8 mmol/L (3.5-5.1); Sodium 137 mmol/L (135-145); Total Protein 5.4 g/dl (6.3-8.2); eGFR > 60.00
[2024-06-22 07:00] VITALS: BP 126/77
[2024-06-22 07:08] LABS: Glucose - Point of Care 157 mg/dl (70-99)
[2024-06-22] MEDS: ASPIR LOW (ENTERIC COATED) 81 MG PO (09:08)
[2024-06-22] MEDS: NOVOLOG FLEXPEN 3 UNITS SC ×2 (09:09→15:32)
[2024-06-22] MEDS: NEURONTIN 100 MG PO ×2 (09:09→21:22)
[2024-06-22] MEDS: MYFORTIC DELAYED REL. 180 MG PO ×2 (09:09→21:22)
[2024-06-22] MEDS: NOVOLOG FLEXPEN-MODERATE RESISTANCE 1 UNITS SC (09:09)
[2024-06-22] MEDS: PROGRAF 3 MG PO ×2 (09:11→22:04)
[2024-06-22 11:19] LABS: Glucose - Point of Care 101 mg/dl (70-99)
[2024-06-22] MEDS: NOVOLOG FLEXPEN-MODERATE RESISTANCE SC (11:25)
[2024-06-22] MEDS: NOVOLOG FLEXPEN SC (11:26)
--- NOTE | 2024-06-22 11:38 | W.PN.GI.CBS2 ---
Today's Communication / Plan
-
continue with diet, document stool output
Assessment / Plan
-
Pt is a 64yo with hx hep C cirrhosis with prior liver/kidney transplant at [facility] in 2021 on mycophenolate and tacrolimus, c-diff post transplant, hx Esophageal varices, prior stenting ? esophageal vs biliary, CAD with prior stenting, IDDM, DVT
with filter, BPH with prior TURP, ORIF hip, prior foot infection presents with diarrhea for 6 weeks. On admission noted with stable labs with elevated glucose 297, bun 30 with normal creat. Culture with neg c-diff, Giardia, crypto, and norovirus
with other cx pending. In review with patient he did go to [place] for eval and had 8 days stay. He recall stool studies completed and denies knowledge of any infection. He denies hx flex or colonoscopy during admission. No change in
Immunosuppression medication doses or other new medications.CT on admission with moderate hydro of transplanted kidney worsening from prior stenting, post liver transplant, portal HTN, splenomegaly, cyst and calculus of [place] kidney, ? bladder
outlet obstruction.
Pt reports having 1 watery BM o/n, however as per nursing staff no BM was recorded o/n. Eating solid diet. C. diff/crypto/giardia -ve, salmonella/shigella/campylobacter also -ve. Given the abrupt resolution of diarrhea, ? CMV colitis seems
unlikely at this point. Tac level pending. Will re-assess tomorrow.
Total Time Spent with Patient (in minutes): 35
Subjective
Subjective
Date of Service: June 22, 2024
Pt reports having 1 watery BM o/n.
Objective
Data Reviewed
Laboratory Data:
Laboratory Results
06/22/24 05:37
06/22/24 05:37
Laboratory Results
PT 13.9 Sec (11.4-14.6) 06/22/24 05:37
INR 1.04 06/22/24 05:37
Total Bilirubin 1.0 mg/dl (0.2-1.3) 06/22/24 05:37
AST 14 U/L (17-59) L 06/22/24 05:37
ALT 11 U/L (0-50) 06/22/24 05:37
Alkaline Phosphatase 80 U/L (38-126) 06/22/24 05:37
Vital Signs and I&O:
Vital Signs
Temp Pulse Resp BP Pulse Ox
97.8 F 87 16 126/77 98
06/22/24 07:00 06/22/24 07:00 06/22/24 07:00 06/22/24 07:00 06/22/24 07:00
I&O
06/21/24 06/22/24 06/23/24
06:59 06:59 06:59
Intake Total 960 / 960 1960 / 1960
Output Total 2350 / 2350
Balance 960 / 960 -390 / -390
--- NOTE | 2024-06-22 13:17 | W.PN.HOSP.TC ---
Today's Communication/Plan
-
Assessment / Plan
Assessment / Plan
NAD
Scleral Anicteric
MMM
No JVD
CTABL
RRR, S1/S2
Soft, NT, ND, BS+
Warm, Dry
AAOx3
Calm
Diarrhea
Stool culture, C. difficile thus far negative
Remains on tacrolimus which has been known to cause diarrhea and of itself
-Agree with GI check level
Tacrolimus is also immunosuppressant increases risk of CMV colitis
-He has told GI that diarrhea has improved however holding the headache ongoing
-- Therefore if truly ongoing then may require flex sig however we will see what GI says tomorrow
Hydronephrosis on transplant kidney
-Creatinine of 1.1
-Monitor renal function
-If remains stable then outpatient transplant nephrology follow-up along with urology follow-up
Transplant kidney
-On mycophenolate and tacrolimus
Diabetes
On insulin long and short acting, Accu-Chek sliding scale goal blood glucose 140-180
CAD with stent
Continue aspirin, does not appear to be on statin nor beta-jakub
Outpatient cardiology follow-up
Anticipated Discharge: 24 - 48 hours
Subjective/Interval History
-
Date of Service: June 22, 2024
Seen and examined. No new complaints. No acute overnight events.
Tells me still having diarrhea but has improved
Asking if he could have his ropinirole resumed for restless leg syndrome
Objective Data
-
Labs:
Laboratory Results
06/22/24
05:37
WBC 6.2
Hgb 10.8 L
Hct 30.3 L
Plt Count 106 L
PT 13.9
INR 1.04
Sodium 137
Potassium 4.8
Chloride 106
Carbon Dioxide 23
BUN 28 H
Creatinine 1.3
Glucose 271 H
Calcium 8.7
Total Bilirubin 1.0
AST 14 L
ALT 11
Alkaline Phosphatase 80
Vital Signs:
Vital Signs
Temp Pulse Resp BP Pulse Ox
97.8 F 87 16 126/77 98
06/22/24 07:00 06/22/24 07:00 06/22/24 07:00 06/22/24 07:00 06/22/24 07:00
I&O
06/21/24 06/22/24 06/23/24
06:59 06:59 06:59
Intake Total 960 / 960 1959 / 1959
Output Total 2350 / 2350
Balance 960 / 960 -390 / -390
[2024-06-22 15:00] VITALS: BP 149/82
[2024-06-22 15:03] LABS: Glucose - Point of Care 314 mg/dl (70-99)
[2024-06-22] MEDS: NOVOLOG FLEXPEN-MODERATE RESISTANCE 7 UNITS SC (15:33)
[2024-06-22 22:17] LABS: Glucose - Point of Care 304 mg/dl (70-99)
[2024-06-22] MEDS: LANTUS 0.12 UNITS SC (22:44)
[2024-06-22 23:00] VITALS: BP 110/70
[2024-06-23 06:00] VITALS: BMI 22.6
[2024-06-23 07:00] VITALS: BP 119/68
[2024-06-23 07:09] LABS: Glucose - Point of Care 204 mg/dl (70-99)
[2024-06-23] MEDS: PROGRAF 3 MG PO ×2 (07:59→20:27)
[2024-06-23] MEDS: NOVOLOG FLEXPEN 3 UNITS SC ×2 (07:59→16:46)
[2024-06-23] MEDS: ASPIR LOW (ENTERIC COATED) 81 MG PO (07:59)
[2024-06-23] MEDS: NEURONTIN 100 MG PO ×2 (07:59→20:27)
[2024-06-23] MEDS: MYFORTIC DELAYED REL. 180 MG PO ×2 (07:59→20:27)
[2024-06-23] MEDS: NOVOLOG FLEXPEN-MODERATE RESISTANCE 3 UNITS SC ×2 (08:00→16:47)
[2024-06-23 11:12] LABS: Glucose - Point of Care 78 mg/dl (70-99)
[2024-06-23] MEDS: NOVOLOG FLEXPEN SC (11:28)
[2024-06-23] MEDS: NOVOLOG FLEXPEN-MODERATE RESISTANCE SC (11:29)
--- NOTE | 2024-06-23 12:49 | W.PN.GI.CBS2 ---
Today's Communication / Plan
-
flx sig tomorrow, tap water enema tomorrow AM
Assessment / Plan
-
Pt is a 64yo with hx hep C cirrhosis with prior liver/kidney transplant at [facility] in 2021 on mycophenolate and tacrolimus, c-diff post transplant, hx Esophageal varices, prior stenting ? esophageal vs biliary, CAD with prior stenting, IDDM, DVT
with filter, BPH with prior TURP, ORIF hip, prior foot infection presents with diarrhea for 6 weeks. On admission noted with stable labs with elevated glucose 297, bun 30 with normal creat. Culture with neg c-diff, Giardia, crypto, and norovirus
with other cx pending. In review with patient he did go to [place] for eval and had 8 days stay. He recall stool studies completed and denies knowledge of any infection. He denies hx flex or colonoscopy during admission. No change in
Immunosuppression medication doses or other new medications.CT on admission with moderate hydro of transplanted kidney worsening from prior stenting, post liver transplant, portal HTN, splenomegaly, cyst and calculus of [place] kidney, ? bladder
outlet obstruction.
Multiple watery diarrhea o/n. Left sided abdominal cramps. Will proceed with flx sig tomorrow. Tap water enema in AM.
Total Time Spent with Patient (in minutes): 35
Subjective
Subjective
Date of Service: June 23, 2024
Multiple watery diarrhea o/n. Left sided abdo cramps
Objective
Data Reviewed
Laboratory Data:
Laboratory Results
06/22/24 05:37
06/22/24 05:37
Laboratory Results
PT 13.9 Sec (11.4-14.6) 06/22/24 05:37
INR 1.04 06/22/24 05:37
Total Bilirubin 1.0 mg/dl (0.2-1.3) 06/22/24 05:37
AST 14 U/L (17-59) L 06/22/24 05:37
ALT 11 U/L (0-50) 06/22/24 05:37
Alkaline Phosphatase 80 U/L (38-126) 06/22/24 05:37
Vital Signs and I&O:
Vital Signs
Temp Pulse Resp BP Pulse Ox
98.2 F 85 16 119/68 99
06/23/24 07:00 06/23/24 07:00 06/23/24 07:00 06/23/24 07:00 06/23/24 07:00
I&O
06/22/24 06/23/24 06/24/24
06:59 06:59 06:59
Intake Total 1959 / 1959 840 / 840
Output Total 2350 / 2350 950 / 950 1000 / 1000
Balance -390 / -390 -110 / -110 -1000 / -1000
--- NOTE | 2024-06-23 14:32 | PTCARENOTE ---
dr bruce was made aware that pt refused fecal management system that was ordered for his diarrhea earlier. he feels it is better controlled and does not want it.
--- NOTE | 2024-06-23 14:55 | W.PN.HOSP.TC ---
Today's Communication/Plan
-
Assessment / Plan
Assessment / Plan
NAD
Scleral Anicteric
MMM
No JVD
CTABL
RRR, S1/S2
Soft, NT, ND, BS+
Warm, Dry
AAOx3
Calm
Diarrhea
Stool culture, C. difficile thus far negative
Flex sig tomorrow
Tacrolimus is also immunosuppressant increases risk of CMV colitis
Hydronephrosis on transplant kidney
-Creatinine of 1.1
-Monitor renal function
-If remains stable then outpatient transplant nephrology follow-up along with urology follow-up
Transplant kidney
-On mycophenolate and tacrolimus
-Tac elvel pending
Diabetes
On insulin long and short acting, Accu-Chek sliding scale goal blood glucose 140-180
CAD with stent
Continue aspirin, does not appear to be on statin nor beta-jakub
Outpatient cardiology follow-up
Anticipated Discharge: > 48 hours
Subjective/Interval History
-
Date of Service: June 23, 2024
Seen and examined. No new complaints. No acute overnight events
Objective Data
-
Vital Signs:
Vital Signs
Temp Pulse Resp BP Pulse Ox
98.2 F 85 16 119/68 99
06/23/24 07:00 06/23/24 07:00 06/23/24 07:00 06/23/24 07:00 06/23/24 07:00
I&O
06/22/24 06/23/24 06/24/24
06:59 06:59 06:59
Intake Total 1959 / 1959 840 / 840
Output Total 2350 / 2350 950 / 950 1000 / 1000
Balance -390 / -390 -110 / -110 -1000 / -1000
[2024-06-23 15:00] VITALS: BP 103/62
[2024-06-23 15:19] LABS: Glucose - Point of Care 227 mg/dl (70-99)
[2024-06-23] MEDS: REQUIP 0.5 MG PO (20:29)
[2024-06-23 21:17] LABS: Glucose - Point of Care 243 mg/dl (70-99)
[2024-06-23] MEDS: LANTUS 0.12 UNITS SC (21:45)
[2024-06-23 23:04] VITALS: BP 117/76
[2024-06-24] VITALS (8 sets, daily range): BP systolic 11–113; BP diastolic 55–71; BMI 22.5
[2024-06-24 05:56] LABS: Glucose - Point of Care 203 mg/dl (70-99)
[2024-06-24] MEDS: NOVOLOG FLEXPEN SC ×2 (06:03→12:09)
[2024-06-24] MEDS: NOVOLOG FLEXPEN-MODERATE RESISTANCE 3 UNITS SC (06:04)
[2024-06-24] MEDS: ASPIR LOW (ENTERIC COATED) 81 MG PO (10:01)
[2024-06-24] MEDS: PROGRAF 3 MG PO ×2 (10:02→21:02)
[2024-06-24] MEDS: NEURONTIN 100 MG PO ×2 (10:02→21:03)
[2024-06-24] MEDS: MYFORTIC DELAYED REL. 180 MG PO ×2 (10:02→21:03)
[2024-06-24 10:11] LABS: Hematocrit 35.4 % (39.0-52.0); Hemoglobin 12.5 g/dL (13.0-18.0); Mean Corp Hgb Conc. 35.3 g/dL (33.0-37.0); Mean Corpuscular Hgb 30.8 pg (27.0-31.0); Mean Corpuscular Volume 87.2 fL (80.0-94.0); Mean Platelet Volume 10.6 fL (7.4-10.4); Platelet Count 130 10^3/uL (130-400); Red Blood Cell Count 4.06 10^6/uL (4.70-6.10); Red Cell Dist. Width 14.1 % (11.5-14.5)
[2024-06-24 11:01] LABS: ALT (SGPT) 11 U/L (0-50); AST (SGOT) 15 U/L (17-59); Albumin 3.6 g/dl (3.5-5.0); Alkaline Phosphatase 80 U/L (38-126); Blood Urea Nitrogen 41 mg/dl (9-20); Calcium 9.2 mg/dl (8.4-10.2); Carbon Dioxide 19 mmol/L (22-30); Chloride 108 mmol/L (98-107); Estimated Creatinine Clearance 51 ml/min; Glucose 148 mg/dl (70-99); Potassium 5.2 mmol/L (3.5-5.1); Sodium 136 mmol/L (135-145); Total Protein 6.2 g/dl (6.3-8.2); eGFR 52.31
[2024-06-24 11:57] LABS: Glucose - Point of Care 145 mg/dl (70-99)
[2024-06-24] MEDS: NOVOLOG FLEXPEN-MODERATE RESISTANCE SC (12:09)
--- NOTE | 2024-06-24 13:00 | CM ---
CM reviewed chart, reviewed with Hospitalist, patient being switched to inpatient status. Patient seen bedside, requesting STR upon discharge, requesting referrals to [facility]. CM will continue to follow for all discharge
planning needs.
Plan; referrals sent to SNF, anticipate discharge to facility once found/medically stable.
--- NOTE | 2024-06-24 13:40 | W.PN.HOSP.TC ---
Today's Communication/Plan
-
-Tacrolimus level pending
-Follow stool frequency with volume
-Follow Urine volume
-Follow labs
Assessment / Plan
Assessment / Plan
64 year old male has a PMH of prior liver/kidney transplant at [facility] in 2021 (on mycophenolate and tacrolimus for 2.5 years), hep C cirrhosis, hx of c-diff post transplant and a recent one 7 months ago ) hx of Esophageal varices,, CAD (with
stents), IDDM, DVT with IVF filter, BPH s/p TURP, and Right ORIF hip and hx of foot infection. He was admitted with 6 weeks duration of diarrhea which got worsen yesterday and he felt very weak. At admission his lab results were significant for
elevated glucose to 297 and UA showed occult blood 4(+). His abdominal CT reported moderate hydro of transplanted kidney worsening from prior stenting, post liver transplant, portal HTN, splenomegaly, cyst and calculus of [place] kidney and Urinary
bladder trabeculation (question chronic outlet obstruction or neurogenic bladder).
Problem list
Diarrhea
Hx of C-Diff
Hx of kidney/liver transplant on immunosuppressants
Left Hydronephrosis of transplant kidney
Trombocytopenia
Chronic Right hip pain
Diabetes Mellitus, Type II
Coronary Artery Disease with stent
hx of DVT with prior filter
BPH s/p TURP
#Diarrhea
-On immunosuppression due liver/kidney transplant in 2021
-Continue tacrolimus and mycophenolate
-Tacrolimus level pending
-Hx c-diff 7 months ago/recovered with fidaxomicin, per patient report
-C diff, norovirus negative, Giardia, crypto, negative /stool culture pending
-HIV pending
-GI on board/concern for CMV with a plan with flex to rule out CMV if diarrhea persists
#Hydronephrosis of transplant kidney
-Was seen by transplant team one month ago/told no issues
-Cr 1.1 (better than baseline) GFR>60 ml
-Follow Urine output
#Diabetes Mellitus, Type II
-Continue Lantus and Novolog
-HgbA1c 6.6
-ISS
#Trombocytopenia
-Plt 131
-Follow CBC
#Chronic Right hip pain
-Hip X ray: No acute abnormality: Chronic healed intertrochanteric fracture of the right proximal femur with a dynamic hip screw in place.
-Continue gabapentin -dose can be adjusted
-PT/OT assessment
#Coronary Artery Disease with stent
-Continue aspirin
Hx DVT s/p IVC filter
DVT Proph: SC Heparin
Code Status: Full Code
Anticipated Discharge: 24 - 48 hours
Subjective/Interval History
-
Date of Service: June 24, 2024
Objective Data
-
Labs:
Laboratory Results
06/24/24
09:18
WBC 8.0
Hgb 12.5 L
Hct 35.4 L
Plt Count 130 D
Sodium 136
Potassium 5.2 H
Chloride 108 H
Carbon Dioxide 19 L
BUN 41 H
Creatinine 1.5 H
Glucose 148 H
Calcium 9.2
Total Bilirubin 1.0
AST 15 L
ALT 11
Alkaline Phosphatase 80
Vital Signs:
Vital Signs
Temp Pulse Resp BP Pulse Ox
98.2 F 87 16 113/69 99
06/24/24 07:00 06/24/24 07:00 06/24/24 07:00 06/24/24 07:00 06/24/24 07:00
I&O
06/23/24 06/24/24 06/25/24
06:59 06:59 06:59
Intake Total 840 / 840 480 / 480
Output Total 950 / 950 1000 / 1000
Balance -110 / -110 -520 / -520
Review of Systems
-
History Source: Patient
EENT: Reports No Symptoms Reported
Respiratory: Reports No Symptoms
Cardiac: Reports No Symptoms
Abdomen/GI: Reports Abdominal Pain and Diarrhea
Genitourinary: Reports No Symptoms
Musculoskeletal: Reports Joint Pain (right hip pain )
Skin: Reports No Symptoms
Neuro: Reports No Symptoms
Endocrine: Reports No Symptoms
Physical Exam
-
General: Well Developed, Well Nourished and No Apparent Distress
HEENT: Normocephalic and Atraumatic
Respiratory: Clear to Auscultation
Cardiac: Regular Rhythm and S1/S2
GI: Soft, Nondistended, Tender (lower abdominal area pain ) and Other (abdominal scar )
Musculoskeletal: No Clubbing and No Cyanosis
Skin: Warm
Neuro: Awake, Alert, Oriented and AO x 3
Psych: Calm
[2024-06-24 16:51] LABS: Glucose - Point of Care 177 mg/dl (70-99)
[2024-06-24] MEDS: NOVOLOG FLEXPEN 3 UNITS SC (17:16)
[2024-06-24] MEDS: NOVOLOG FLEXPEN-MODERATE RESISTANCE 1 UNITS SC (17:17)
[2024-06-24] MEDS: REQUIP 0.5 MG PO (21:02)
[2024-06-24 22:06] LABS: Glucose - Point of Care 260 mg/dl (70-99)
[2024-06-24] MEDS: LANTUS 0.12 UNITS SC (22:58)
--- NOTE | 2024-06-25 03:36 | PTCARENOTE ---
Pt refusing Heparin sq. c/o pain to back and legs. Discussed PRN meds with covering OTR [employer]AN [employer]. Pt did not want to take Tylenol for pain 11/17/ No new orders noted. Will continue to monitor.
[2024-06-25 06:00] VITALS: BMI 22.4
[2024-06-25 07:00] VITALS: BP 105/67
--- NOTE | 2024-06-25 07:07 | W.PN.GI.CBS2 ---
Today's Communication / Plan
-
Please see assessment and plan for details.
Assessment / Plan
-
1. Diarrhea: With history of C. difficile in the past status post fecal transplant, in immunocompromised setting given kidney/liver transplant, though infectious workup has been unremarkable including C. difficile. Colonoscopy without obvious
colitis, status post biopsies. He has had no diarrhea overnight and exam is benign. At this point we will await pathology results, and will start Imodium, Metamucil and continue supportive care.
Subjective
Subjective
Date of Service: June 25, 2024
Patient feeling okay, no diarrhea overnight. Some mild left lower quadrant discomfort, no fever, chills. Colonoscopy results noted, no obvious inflammation, biopsies taken.
Objective
Data Reviewed
Laboratory Data:
Laboratory Results
06/24/24 09:18
06/24/24 09:18
Laboratory Results
PT 13.9 Sec (11.4-14.6) 06/22/24 05:37
INR 1.04 06/22/24 05:37
Total Bilirubin 1.0 mg/dl (0.2-1.3) 06/24/24 09:18
AST 15 U/L (17-59) L 06/24/24 09:18
ALT 11 U/L (0-50) 06/24/24 09:18
Alkaline Phosphatase 80 U/L (38-126) 06/24/24 09:18
Vital Signs and I&O:
Vital Signs
Temp Pulse Resp BP Pulse Ox
97.3 F 89 18 109/64 97
06/24/24 23:00 06/24/24 23:00 06/24/24 23:00 06/24/24 23:00 06/24/24 23:00
I&O
06/24/24 06/25/24 06/26/24
06:59 06:59 06:59
Intake Total 480 / 480 1200 / 1200
Output Total 1000 / 1000
Balance -520 / -520 1200 / 1200
Physical Exam
Physical Exam
General: NAD
Abdomen: normal bowel sounds, soft, minimal left lower quadrant tenderness, no masses or bruits, no ascites
[2024-06-25 07:37] LABS: Glucose - Point of Care 156 mg/dl (70-99)
[2024-06-25 08:35] LABS: % Basophils 0.4 % (0-2); % Eosinophils 7.2 % (0-6); % Immature Granulocytes 0.7 % (0-0.5); % Lymphocytes 20.8 % (20.5-51.1); % Monocytes 6.2 % (1.7-9.3); % Neutrophils 64.7 % (42.2-75.2); Absolute Eosinophils 0.5 10^3/uL (0-0.7); Absolute Immature Granulocytes 0.1 10^3/uL (0-0.05); Absolute Lymphocytes 1.5 10^3/uL (1.2-3.4); Absolute Monocytes 0.5 10^3/uL (0.1-0.6); Absolute Neutrophils 4.8 10^3/uL (1.4-6.5); Hematocrit 34.8 % (39.0-52.0); Hemoglobin 12.3 g/dL (13.0-18.0); Mean Corp Hgb Conc. 35.3 g/dL (33.0-37.0); Mean Corpuscular Hgb 30.7 pg (27.0-31.0); Mean Corpuscular Volume 86.8 fL (80.0-94.0); Mean Platelet Volume 10.7 fL (7.4-10.4); Nucleated Red Blood Cells % 0 % (-); Platelet Count 138 10^3/uL (130-400); Red Blood Cell Count 4.01 10^6/uL (4.70-6.10); Red Cell Dist. Width 14.2 % (11.5-14.5); White Blood Cell Count 7.4 10^3/uL (4.8-10.8)
[2024-06-25] MEDS: IMODIUM 2 MG PO (08:41)
[2024-06-25 08:54] LABS: ALT (SGPT) 11 U/L (0-50); AST (SGOT) 14 U/L (17-59); Albumin 3.9 g/dl (3.5-5.0); Alkaline Phosphatase 85 U/L (38-126); Blood Urea Nitrogen 43 mg/dl (9-20); Calcium 8.9 mg/dl (8.4-10.2); Carbon Dioxide 18 mmol/L (22-30); Chloride 109 mmol/L (98-107); Estimated Creatinine Clearance 48 ml/min; Glucose 161 mg/dl (70-99); Potassium 4.3 mmol/L (3.5-5.1); Sodium 136 mmol/L (135-145); Total Bilirubin 1.3 mg/dl (0.2-1.3); Total Protein 6.2 g/dl (6.3-8.2); eGFR 48.41
[2024-06-25 10:12] LABS: Glucose - Point of Care 142 mg/dl (70-99)
[2024-06-25] MEDS: NOVOLOG FLEXPEN-MODERATE RESISTANCE SC (10:14)
[2024-06-25] MEDS: NOVOLOG FLEXPEN 3 UNITS SC ×3 (10:18→17:52)
[2024-06-25] MEDS: METAMUCIL, KONSYL 1 PACKET PO (10:21)
[2024-06-25] MEDS: ASPIR LOW (ENTERIC COATED) 81 MG PO (10:22)
[2024-06-25] MEDS: MYFORTIC DELAYED REL. 180 MG PO ×2 (10:23→20:21)
[2024-06-25] MEDS: PROGRAF 3 MG PO ×2 (10:23→20:20)
[2024-06-25] MEDS: NEURONTIN 100 MG PO ×2 (10:24→20:20)
[2024-06-25] MEDS: LR 1000 IV ×2 (10:25→21:51)
--- NOTE | 2024-06-25 12:25 | PN.CDI ---
CDI
- -
CDI:
Physician Documentation Request
Admit Date: 06/21/24 13:36
Dear Doctor Griselda,
Patient admitted with diarrhea.
06/21 Wound Care Note: 'Patient has 2 small red ecchymotic areas on his R heel he said occurred while in rehab because he was using his R heel to push up in bed. Patient admitted with what appears to be a stage 1 R heel pressure injury.'
Physician documentation of the type and location of wounds is required for compliant documentation. Based on the above clinical findings and your assessment, please provide the following in your progress note:
1. Location of the ulcer/wound, including laterality.
2. Type (etiology) of ulcer/wound:
- Diabetic ulcer
- Arterial (ischemic) ulcer
- Traumatic wound
- Venous stasis ulcer
- Pressure (decubitus) ulcer
- Non-healing surgical wound
- Other
- Unable to determine
3. For a non-pressure ulcer, please indicate the depth/severity:
- Limited to the breakdown of skin
- With fat layer exposed
- With necrosis of muscle
- With necrosis of bone
- Other
- Unable to determine
4. If a pressure ulcer, please also include the stage* of the ulcer:
- Stage 1 - Skin intact, non-blanchable redness
- Stage 2 - Partial thickness loss of dermis, includes intact or open blister
- Stage 3 - Full thickness tissue not including bone, tendon or muscle
- Stage 4 - Full thickness tissue loss, including exposed bone, tendon or muscle
- Unstageable - Full thickness loss in which the base of the ulcer is covered by slough (yellow, hoover, cagle, green or brown) and/or eschar (hoover, brown or black) in the wound bed.
- Unable to determine
Use of terms such as suspected, likely, concern for, or probable (associated with a specific diagnosis that is being evaluated, monitored, or treated as if it exists) are acceptable and can be coded in the inpatient setting, when documented at the
time of discharge.
Thank you,
Sherri Lopez RN, BSN
CDI Specialist
Available via [place] text
Please use your independent medical judgment in providing your response.
*Source: National Pressure Ulcer Advisory Panel (NPUAP)
--- NOTE | 2024-06-25 13:45 | W.PN.HOSP.TC ---
Addendum entered and electronically signed by Oh Dorman DO 06/25/24 14:18:
CDI: Stage I right heel pressure injury
Original Note:
Today's Communication/Plan
-
-Kidney ultrasound
-Nephrology consultation
-Follow BMP, CBC
-Started on Imodium, Metamucil and Lomotil
Assessment / Plan
Assessment / Plan
64 year old male has a PMH of prior liver/kidney transplant at [facility] in 2021 (on mycophenolate and tacrolimus for 2.5 years), hep C cirrhosis, hx of c-diff post transplant and a recent one 7 months ago ) hx of Esophageal varices,, CAD (with
stents), IDDM, DVT with IVF filter, BPH s/p TURP, and Right ORIF hip and hx of foot infection. He was admitted with 6 weeks duration of diarrhea which got worsen yesterday and he felt very weak. At admission his lab results were significant for
elevated glucose to 297 and UA showed occult blood 4(+). His abdominal CT reported moderate hydro of transplanted kidney worsening from prior stenting, post liver transplant, portal HTN, splenomegaly, cyst and calculus of [place] kidney and Urinary
bladder trabeculation (question chronic outlet obstruction or neurogenic bladder).
Problem list
Diarrhea
Hx of C-Diff
Hx of kidney/liver transplant on immunosuppressants
Left Hydronephrosis of transplant kidney
Trombocytopenia
Chronic Right hip pain
Diabetes Mellitus, Type II
Coronary Artery Disease with stent
hx of DVT with prior filter
BPH s/p TURP
#Diarrhea
-On immunosuppression due liver/kidney transplant in 2021
-Continue tacrolimus and mycophenolate
-Tacrolimus level pending
-Hx c-diff 7 months ago/recovered with fidaxomicin, per patient report
-C diff, norovirus negative, Giardia, crypto, negative /stool culture negative
-HIV pending
-GI on board/ had a c had a colonoscopy on 06/24/24 to rule out CMV - results are pending- Colonoscopy without obvious colitis-
-Continue Imodium, Metamuci
#Hydronephrosis of transplant kidney
-Was seen by transplant team one month ago/told no issues
-Cr trending up to 1.6
-Nephrology was consulted
-Kidney ultrasound was ordered
-Follow Urine output
#Diabetes Mellitus, Type II
-Continue Lantus and Novolog
-HgbA1c 6.6
-ISS
#Trombocytopenia
-Plt 138
-No signs of active bleeding
-Follow CBC
#Chronic Right hip pain
-Hip X ray: No acute abnormality: Chronic healed intertrochanteric fracture of the right proximal femur with a dynamic hip screw in place.
-Continue gabapentin -dose can be adjusted
-PT/OT assessment
#Coronary Artery Disease with stent
-Continue aspirin
Hx DVT s/p IVC filter
DVT Proph: SC Heparin
Code Status: Full Code
Anticipated Discharge: 24 - 48 hours
Subjective/Interval History
-
Date of Service: June 25, 2024
The patient reports ongoing diarrhea likely watery. Reports some lower abdominal discomfort.
Objective Data
-
Labs:
Laboratory Results
06/25/24 06/25/24
07:32 07:33
WBC 7.4
Hgb 12.3 L
Hct 34.8 L
Plt Count 138
Sodium 136
Potassium 4.3
Chloride 109 H
Carbon Dioxide 18 L
BUN 43 H
Creatinine 1.6 H
Glucose 161 H
Calcium 8.9
Total Bilirubin 1.3
AST 14 L
ALT 11
Alkaline Phosphatase 85
Vital Signs:
Vital Signs
Temp Pulse Resp BP Pulse Ox
97.9 F 85 18 105/67 100
06/25/24 07:00 06/25/24 07:00 06/25/24 07:00 06/25/24 07:00 06/25/24 07:00
I&O
06/24/24 06/25/24 06/26/24
06:59 06:59 06:59
Intake Total 480 / 480 1200 / 1200
Output Total 1000 / 1000
Balance -520 / -520 1200 / 1200
Review of Systems
-
History Source: Patient
EENT: Reports No Symptoms Reported
Respiratory: Reports No Symptoms
Cardiac: Reports No Symptoms
Abdomen/GI: Reports Other (Lower abdominal discomfort)
Genitourinary: Reports No Symptoms
Musculoskeletal: Reports Other (Pain on the right hip )
Skin: Reports No Symptoms
Neuro: Reports No Symptoms
Physical Exam
-
General: Well Developed, Well Nourished and Appears Chronically Ill
HEENT: Normocephalic and Atraumatic
Respiratory: Clear to Auscultation
Cardiac: Regular Rhythm and S1/S2
GI: Soft, Nontender and Other (abdominal scar)
Musculoskeletal: No Clubbing, No Cyanosis and No Edema
Skin: Warm
Neuro: Awake, Alert and Oriented
[2024-06-25 14:10] LABS: Glucose - Point of Care 211 mg/dl (70-99)
[2024-06-25] MEDS: NOVOLOG FLEXPEN-MODERATE RESISTANCE 3 UNITS SC (14:41)
--- NOTE | 2024-06-25 14:59 | W.CON.NEPH ---
Consultation
-
Date/Time Consultation Requested: June 25, 2024 at 10 AM
Date/Time Consultation Performed: June 25, 2024 at 3 PM
Requesting Provider: Dr. Sandoval
Performing Provider: Dr. Alvares
Reason for Consultation: Acute kidney injury
Medical History
-
Chief Complaint: Acute kidney injury
History of Present Illness:
64yo with hx hep C cirrhosis with prior liver/kidney transplant at [facility] in 2021 on mycophenolate and tacrolimus, c-diff post transplant, hx Esophageal varices, CAD with prior stenting, IDDM, DVT with filter, BPH with prior TURP, ORIF hip,
prior foot infection presents with diarrhea for 6 weeks.
Culture with neg c-diff, Giardia, crypto, and norovirus . In review with patient he did go to [place] for eval and had 8 days stay. No change in Immunosuppression medication doses or other new medications. CT on admission with moderate hydro of
transplanted kidney worsening from prior stenting, post liver transplant, portal HTN, splenomegaly, cyst and calculus of [place] kidney, ? bladder outlet obstruction.
Renal consult for acute kidney injury with creatinine of 1.6 admitted with a creatinine of 1.1. The patient has ongoing diarrhea he is status post colonoscopy where he went underwent biopsy. Positive for hemorrhoids with diverticulosis
Past Medical History
hx hep C cirrhosis with prior liver/kidney transplant at [facility] in 2021 on mycophenolate and tacrolimus, c-diff post transplant, hx Esophageal varices, prior stenting ? esophageal vs biliary, CAD with prior stenting, IDDM, DVT with filter, BPH
with prior TURP, ORIF hip,
Past Medical History: Other
Past Surgical History: Other
Social History
Tobacco: Former Smoker
Alcohol: None
Drug: None
Family History
no CKD
Allergies / Home Medications
Allergy/AdvReac Type Severity Reaction Status Date / Time
No Known Allergies Allergy Unverified 06/16/23 10:49
�Medication �Instructions �Recorded �Confirmed �Type
aspirin 81 mg tablet,delayed 81 mg PO DAILY Blood Clot 08/15/23 06/20/24 History
release Prevention/Tx
mycophenolate sodium 180 mg 180 mg PO Q12H@0800,1999 Kidney 08/15/23 06/20/24 History
tablet,delayed release transplant
tacrolimus 1 mg capsule, 3 mg PO Q12H@0800,1999 kidney 08/15/23 06/20/24 History
immediate-release transplant
insulin glargine 100 unit/mL (3 20 unit SC HS Diabetes 06/20/24 06/20/24 History
mL) subcutaneous pen (Lantus
Solostar U-100 Insulin)
insulin lispro 100 unit/mL 7 sliding scale dose SC AC Diabetes 06/20/24 06/20/24 History
subcutaneous pen
Review of Systems
-
Diarrhea
All other systems: Negative unless noted
Physical Exam
Vital Signs
Vital Signs
Temp Pulse Resp BP Pulse Ox
97.9 F 85 18 105/67 100
06/25/24 07:00 06/25/24 07:00 06/25/24 07:00 06/25/24 07:00 06/25/24 07:00
Lab Results
WBC 7.4 10^3/uL (4.8-10.8) 06/25/24 07:33
RBC 4.01 10^6/uL (4.70-6.10) L 06/25/24 07:33
Hgb 12.3 g/dL (13.0-18.0) L 06/25/24 07:33
Hct 34.8 % (39.0-52.0) L 06/25/24 07:33
Plt Count 138 10^3/uL (130-400) 06/25/24 07:33
Sodium 136 mmol/L (135-145) 06/25/24 07:32
Potassium 4.3 mmol/L (3.5-5.1) 06/25/24 07:32
Chloride 109 mmol/L (98-107) H 06/25/24 07:32
Carbon Dioxide 18 mmol/L (22-30) L 06/25/24 07:32
BUN 43 mg/dl (9-20) H 06/25/24 07:32
Creatinine 1.6 mg/dL (0.7-1.3) H 06/25/24 07:32
eGFR 48.41 06/25/24 07:32
Glucose 161 mg/dl (70-99) H 06/25/24 07:32
Calcium 8.9 mg/dl (8.4-10.2) 06/25/24 07:32
Albumin 3.9 g/dl (3.5-5.0) 06/25/24 07:32
Physical Exam
General no acute distress
HEENT no cephalic atraumatic extraocular muscle intact no scleral icterus no JVD neck supple
lungs clear to auscultation bilateral
heart regular S1-S2 positive
abdomen soft nontender positive bowel sounds
extremities no edema pulses present bilateral
Neurologically nonfocal alert and oriented x 3
Skin no lesions no abrasions no petechiae
Psych normal affect no bizarre behavior
Data Reviewed
-
Ultrasound: Image Personally Visualized and interpreted
Labs: Labs Reviewed by me and Discussed with Patient
Assessment/Plan
-
64yo with hx hep C cirrhosis with prior liver/kidney transplant at [facility] in 2021 on mycophenolate and tacrolimus, c-diff post transplant, hx Esophageal varices, prior stenting ? esophageal vs biliary, CAD with prior stenting, IDDM, DVT with
filter, BPH with prior TURP, ORIF hip, prior foot infection presents with diarrhea for 6 weeks. On admission noted with stable labs with elevated glucose 297, bun 30 with normal creat. Culture with neg c-diff, Giardia, crypto, and norovirus with
other cx pending. In review with patient he did go to [place] for eval and had 8 days stay. He recall stool studies completed and denies knowledge of any infection. He denies hx flex or colonoscopy during admission. No change in
Immunosuppression medication doses or other new medications. CT on admission with moderate hydro of transplanted kidney worsening from prior stenting, post liver transplant, portal HTN, splenomegaly, cyst and calculus of [place] kidney, ? bladder
outlet obstruction.
Impression
ROXY
Persistent diarrhea
Coronary Artery Disease with stents
Left Kidney/Liver Transplant in 2021 for Cirrhosis secondary to Hepatitis C-at [facility] February 26, 2022, b/l 1.3
Diabetes Mellitus, Type II no history of diabetic neuropathy or retinopathy
Chronic back pain requiring chronic opioid dependence
DJD -C3-C4, C5-C6
Urine drug screen positive for fentanyl
Anemia
Thrombocytopenia
DVT
Plan:
Ultrasound of transplanted kidney shows mild hydronephrosis on the left quadrant renal transplant improved from prior study of from August 2023
Tacrolimus level pending from 06/21
continue tac/mmf
Acuity appears to be secondary to hemodynamics and hypotension we had a systolic blood pressure of 88/55 on 06/24 likely from ongoing GI losses.
Agree with IV fluids lactated Ringer's.
Urinalysis on this admission shows hematuria and proteinuria no change from August 2023.
A.m. labs
[2024-06-25 15:00] VITALS: BP 117/72
[2024-06-25 17:27] LABS: Glucose - Point of Care 277 mg/dl (70-99)
[2024-06-25] MEDS: NOVOLOG FLEXPEN-MODERATE RESISTANCE 5 UNITS SC (17:53)
[2024-06-25 18:16] LABS: Urine Sodium 42 mmol/L (30-90)
[2024-06-25] MEDS: DILAUDID 0.25 MG IV (18:54)
[2024-06-25] MEDS: REQUIP 0.5 MG PO (20:22)
[2024-06-25 21:39] LABS: Glucose - Point of Care 194 mg/dl (70-99)
[2024-06-25] MEDS: LANTUS 0.12 UNITS SC (21:50)
[2024-06-25 22:50] VITALS: BP 112/64
[2024-06-26] MEDS: DILAUDID 0.25 MG IV ×5 (00:54→20:43)
--- NOTE | 2024-06-26 04:37 | DOWNTIME ---
There was a [employer] Client [employer] Picking Machine Operator Downtime on 06/26/2024 from 0100 to 06/27/2023 at 0420 . Downtime documentation of patient's care, including medication administrations, has been reconciled in the electronic record per guidelines. Refer to the
patient's paper chart under the miscellaneous tab to see printed paper medication records and downtime forms.
[2024-06-26 06:00] VITALS: BMI 22.5
[2024-06-26] MEDS: LR 1000 IV ×2 (06:09→14:26)
[2024-06-26 07:00] VITALS: BP 114/69
--- NOTE | 2024-06-26 07:07 | W.PN.GI.CBS2 ---
Today's Communication / Plan
-
Please see assessment and plan for details.
Assessment / Plan
-
1. Diarrhea: With history of C. difficile in the past status post fecal transplant, in immunocompromised setting given kidney/liver transplant, though infectious workup has been unremarkable including C. difficile, for the past 6 weeks, likely
initial infection with postinfectious sequelae such as microscopic colitis. Colonoscopy was unremarkable, biopsies still pending. At this point would continue supportive care, continue fiber. We discussed only Imodium and Lomotil as needed as he
is improved overall yesterday
2. Status post OLT: LFTs remain normal, has had no changes to medications. He will continue to follow-up with hepatology as outpatient.
Subjective
Subjective
Date of Service: June 26, 2024
Patient feeling okay, took 1 dose of Imodium yesterday, no significant further diarrhea. Also had some urinary retention, however. He denies any fever, chills, melena or hematochezia.
Objective
Data Reviewed
Laboratory Data:
Laboratory Results
PT 13.9 Sec (11.4-14.6) 06/22/24 05:37
INR 1.04 06/22/24 05:37
Total Bilirubin 1.3 mg/dl (0.2-1.3) 06/25/24 07:32
AST 14 U/L (17-59) L 06/25/24 07:32
ALT 11 U/L (0-50) 06/25/24 07:32
Alkaline Phosphatase 85 U/L (38-126) 06/25/24 07:32
Vital Signs and I&O:
Vital Signs
Temp Pulse Resp BP Pulse Ox
98.9 F 88 16 112/64 99
06/25/24 22:50 06/25/24 22:50 06/25/24 22:50 06/25/24 22:50 06/25/24 22:50
I&O
0306/26/24 06/27/24
06:59 06:59 06:59
Intake Total 1200 / 1200 1260 / 1260 480 / 480
Output Total 100 / 100 600 / 600
Balance 1200 / 1200 1160 / 1160 -120 / -120
Physical Exam
Physical Exam
General: NAD
Abdomen: normal bowel sounds, soft, no tenderness, no masses or bruits, no ascites
[2024-06-26 07:34] LABS: Glucose - Point of Care 168 mg/dl (70-99)
[2024-06-26] MEDS: NEURONTIN 100 MG PO ×2 (07:34→20:43)
[2024-06-26] MEDS: ASPIR LOW (ENTERIC COATED) 81 MG PO (07:34)
[2024-06-26] MEDS: PROGRAF 3 MG PO ×2 (07:34→20:43)
[2024-06-26] MEDS: METAMUCIL, KONSYL 1 PACKET PO (07:34)
[2024-06-26] MEDS: NOVOLOG FLEXPEN 3 UNITS SC ×3 (07:35→17:48)
[2024-06-26] MEDS: MYFORTIC DELAYED REL. 180 MG PO ×2 (07:35→20:43)
[2024-06-26] MEDS: NOVOLOG FLEXPEN-MODERATE RESISTANCE 1 UNITS SC (07:36)
[2024-06-26 08:16] LABS: % Basophils 0.3 % (0-2); % Eosinophils 6.8 % (0-6); % Immature Granulocytes 0.6 % (0-0.5); % Monocytes 6.6 % (1.7-9.3); % Neutrophils 62.7 % (42.2-75.2); Absolute Eosinophils 0.5 10^3/uL (0-0.7); Absolute Lymphocytes 1.5 10^3/uL (1.2-3.4); Absolute Monocytes 0.4 10^3/uL (0.1-0.6); Absolute Neutrophils 4.2 10^3/uL (1.4-6.5); Hematocrit 29.2 % (39.0-52.0); Hemoglobin 10.3 g/dL (13.0-18.0); Mean Corp Hgb Conc. 35.3 g/dL (33.0-37.0); Mean Corpuscular Hgb 30.8 pg (27.0-31.0); Mean Corpuscular Volume 87.4 fL (80.0-94.0); Mean Platelet Volume 10.8 fL (7.4-10.4); Nucleated Red Blood Cells % 0 % (-); Platelet Count 105 10^3/uL (130-400); Red Blood Cell Count 3.34 10^6/uL (4.70-6.10); Red Cell Dist. Width 14.1 % (11.5-14.5); White Blood Cell Count 6.6 10^3/uL (4.8-10.8)
[2024-06-26 08:44] LABS: ALT (SGPT) < 10 U/L (0-50); AST (SGOT) 12 U/L (17-59); Albumin 2.9 g/dl (3.5-5.0); Alkaline Phosphatase 96 U/L (38-126); Blood Urea Nitrogen 36 mg/dl (9-20); Calcium 8.3 mg/dl (8.4-10.2); Carbon Dioxide 19 mmol/L (22-30); Chloride 111 mmol/L (98-107); Estimated Creatinine Clearance 55 ml/min; Glucose 164 mg/dl (70-99); Potassium 4.1 mmol/L (3.5-5.1); Sodium 137 mmol/L (135-145); Total Bilirubin 0.7 mg/dl (0.2-1.3); Total Protein 5.1 g/dl (6.3-8.2); eGFR 56.83
--- NOTE | 2024-06-26 09:21 | W.PN.HOSP.TC ---
Today's Communication/Plan
-
Biopsy from colonoscopy pending
Cont. fiber supplements
LR for ROXY
Assessment / Plan
Assessment / Plan
64 year old male has a PMH of prior liver/kidney transplant at [facility] in 2021 (on mycophenolate and tacrolimus for 2.5 years), hep C cirrhosis, hx of c-diff post transplant and a recent one 7 months ago ) hx of Esophageal varices,, CAD (with
stents), IDDM, DVT with IVF filter, BPH s/p TURP, and Right ORIF hip and hx of foot infection. He was admitted with 6 weeks duration of diarrhea which got worsen yesterday and he felt very weak. At admission his lab results were significant for
elevated glucose to 297 and UA showed occult blood 4(+). His abdominal CT reported moderate hydro of transplanted kidney worsening from prior stenting, post liver transplant, portal HTN, splenomegaly, cyst and calculus of [place] kidney and Urinary
bladder trabeculation (question chronic outlet obstruction or neurogenic bladder).
Problem list
Diarrhea
Hx of C-Diff
Hx of kidney/liver transplant on immunosuppressants
Left Hydronephrosis of transplant kidney
Trombocytopenia
Chronic Right hip pain
Diabetes Mellitus, Type II
Coronary Artery Disease with stent
hx of DVT with prior filter
BPH s/p TURP
#Diarrhea
-On immunosuppression due liver/kidney transplant in 2021
-Continue tacrolimus and mycophenolate
-Tacrolimus level pending
-Hx c-diff 7 months ago/recovered with fidaxomicin, per patient report
-C diff, norovirus negative, Giardia, crypto, negative /stool culture negative
-HIV (-)
-GI on board/ had a c had a colonoscopy on 06/24/24 to rule out CMV - biopsy results are pending- Colonoscopy without obvious colitis-
-Continue Imodium, Metamucil
-If biopsy inconclusive, consider extensive malabsorptive workup
#Hydronephrosis of transplant kidney
-Was seen by transplant team one month ago/told no issues
-Cr trending up to 1.6 -> 1.4
-Nephrology was consulted
-Kidney ultrasound revealed mild hydronephrosis but improved from prior ab/pelvis CT
-Fluids with LR
-Follow Urine output
#Diabetes Mellitus, Type II
-Continue Lantus and Novolog
-HgbA1c 6.6
-ISS
#Anemia
-drop in hg from 12.3 ->10.3 today
-Repeat H&H this afternoon
-Denies any acute bleeding
#Trombocytopenia
-Plt 138 -> 105
-No signs of active bleeding
-Follow CBC
#Chronic Right hip pain
-Hip X ray: No acute abnormality: Chronic healed intertrochanteric fracture of the right proximal femur with a dynamic hip screw in place.
-Continue gabapentin -dose can be adjusted
-PT/OT assessment
#Coronary Artery Disease with stent
-Continue aspirin
Hx DVT s/p IVC filter
DVT Proph: SC Heparin
Code Status: Full Code
Anticipated Discharge: 24 - 48 hours
Subjective/Interval History
-
Date of Service: June 26, 2024
Objective Data
-
Labs:
Laboratory Results
06/26/24
07:00
WBC 6.6
Hgb 10.3 L
Hct 29.2 L
Plt Count 105 L D
Sodium 137
Potassium 4.1
Chloride 111 H
Carbon Dioxide 19 L
BUN 36 H
Creatinine 1.4 H
Glucose 164 H
Calcium 8.3 L
Total Bilirubin 0.7
AST 12 L
ALT < 10
Alkaline Phosphatase 96
Vital Signs:
Vital Signs
Temp Pulse Resp BP Pulse Ox
98 F 84 20 114/69 99
06/26/24 07:00 06/26/24 07:00 06/26/24 07:00 06/26/24 07:00 06/26/24 07:00
I&O
06/25/24 06/26/24 06/27/24
06:59 06:59 06:59
Intake Total 1200 / 1200 1260 / 1260 480 / 480
Output Total 100 / 100 600 / 600
Balance 1200 / 1200 1160 / 1160 -120 / -120
Review of Systems
-
History Source: Patient
Respiratory: Reports No Symptoms
Cardiac: Reports No Symptoms
Abdomen/GI: Reports Abdominal Pain (In LLQ where transplanted kidney is located); Denies Nausea, Vomiting, Diarrhea or Bloody Stools
Genitourinary: Reports No Symptoms
Neuro: Reports No Symptoms
Physical Exam
-
General: No Apparent Distress and Comfortable
HEENT: Normocephalic
Respiratory: Clear to Auscultation
Cardiac: Regular Rhythm, S1/S2 and Murmur
GI: Soft, Nondistended, Normal Bowel Sounds and Tender (LLQ where transplanted kidney is located )
Musculoskeletal: No Edema
Skin: Warm and Dry
Neuro: AO x 3
Psych: Calm
[2024-06-26 09:49] VITALS: O2SAT 97
--- NOTE | 2024-06-26 10:42 | W.PN.NEPH.PH ---
Today's Communication / Plan
-
Follow BMP
Assessment/Plan
-
64yo with hx hep C cirrhosis with prior liver/kidney transplant at [facility] in 2021 on mycophenolate and tacrolimus, c-diff post transplant, hx Esophageal varices, prior stenting ? esophageal vs biliary, CAD with prior stenting, IDDM, DVT with
filter, BPH with prior TURP, ORIF hip, prior foot infection presents with diarrhea for 6 weeks. On admission noted with stable labs with elevated glucose 297, bun 30 with normal creat. Culture with neg c-diff, Giardia, crypto, and norovirus with
other cx pending. In review with patient he did go to [place] for eval and had 8 days stay. He recall stool studies completed and denies knowledge of any infection. He denies hx flex or colonoscopy during admission. No change in
Immunosuppression medication doses or other new medications. CT on admission with moderate hydro of transplanted kidney worsening from prior stenting, post liver transplant, portal HTN, splenomegaly, cyst and calculus of [place] kidney, ? bladder
outlet obstruction.
Impression
ROXY
Persistent diarrhea
Coronary Artery Disease with stents
Left Kidney/Liver Transplant in 2021 for Cirrhosis secondary to Hepatitis C-at [facility] February 26, 2022, b/l 1.3
Diabetes Mellitus, Type II no history of diabetic neuropathy or retinopathy
Chronic back pain requiring chronic opioid dependence
DJD -C3-C4, C5-C6
Urine drug screen positive for fentanyl
Anemia
Thrombocytopenia
DVT
Plan:
Tacrolimus 3.4 on June 21
Repeat tacrolimus level
Continue IV fluids LR
If diarrhea returns, may need to consider holding mycophenolate, but this would need to be discussed with his liver transplant team
Follow BMP
-
-
Date of Service: June 26, 2024
CC / HPI / ROS
-
Chief Complaint:
Kidney transplant
History of Present Illness:
ROXY/creatinine down to 1.4
Metabolic acidosis persists
No diarrhea since Imodium given yesterday morning
BP stable
Review of Systems:
No chest pain or shortness of breath
Labs
-
Labs:
WBC 6.6 10^3/uL (4.8-10.8) 06/26/24 07:00
RBC 3.34 10^6/uL (4.70-6.10) L 06/26/24 07:00
Plt Count 105 10^3/uL (130-400) L D 06/26/24 07:00
Sodium 137 mmol/L (135-145) 06/26/24 07:00
Potassium 4.1 mmol/L (3.5-5.1) 06/26/24 07:00
Chloride 111 mmol/L (98-107) H 06/26/24 07:00
Carbon Dioxide 19 mmol/L (22-30) L 06/26/24 07:00
BUN 36 mg/dl (9-20) H 06/26/24 07:00
Creatinine 1.4 mg/dL (0.7-1.3) H 06/26/24 07:00
eGFR 56.83 06/26/24 07:00
Glucose 164 mg/dl (70-99) H 06/26/24 07:00
Calcium 8.3 mg/dl (8.4-10.2) L 06/26/24 07:00
Albumin 2.9 g/dl (3.5-5.0) L 06/26/24 07:00
Physical Exam
-
Vital Signs:
Vital Signs
Temp Pulse Resp BP Pulse Ox
98 F 84 20 114/69 99
06/26/24 07:00 06/26/24 07:00 06/26/24 07:00 06/26/24 07:00 06/26/24 07:00
Cardiovascular:: Regular rate and rhythm
Respiratory:: Bilateral: CTA
Lung Excursion:: Normal
Abdomen:: Nontender and Soft
Bowel Sounds:: Normal
Extremity Edema:: None: Bilateral:
[2024-06-26 11:46] LABS: Glucose - Point of Care 217 mg/dl (70-99)
[2024-06-26] MEDS: NOVOLOG FLEXPEN-MODERATE RESISTANCE 3 UNITS SC (11:47)
[2024-06-26 14:06] LABS: Hematocrit 28.9 % (39.0-52.0); Hemoglobin 10.4 g/dL (13.0-18.0)
[2024-06-26 15:00] VITALS: BP 131/68
--- NOTE | 2024-06-26 15:25 | CM ---
CM reviewed chart, patient seen bedside, discussed pending day of discharge/bed availability, [facility]. Patient reports he has been to both facilities, not willing to return. Patient reports he has been
to [facility], [facility], [facility], not willing to return to any of these facilities. Additional referrals placed in [facility]. Patient provided with [facility] number. CM will continue to follow for all discharge planning needs.
Plan; additional SNF referrals placed
--- NOTE | 2024-06-26 15:59 | WOUNDNOTE ---
[facility] RN NOTE: Patient visited to follow up on heels. Right heel wound is closed at time of assessment. Patient reports tenderness at heel at right heel during ambulation and when in bed. Patient requested heel relief boot when in bed. This narrative writer
called [facility] for fiber filled boot. NIELS Viera made aware. Left heel intact and sacrum intact. No-sting barrier and adhesive foam applied to bilateral heels. Patient turns self in bed is on a [employer]. Will update orders and follow as
needed.
[2024-06-26 16:32] LABS: Glucose - Point of Care 255 mg/dl (70-99)
[2024-06-26] MEDS: NOVOLOG FLEXPEN-MODERATE RESISTANCE 5 UNITS SC (17:49)
[2024-06-26] MEDS: REQUIP 0.5 MG PO (20:43)
[2024-06-26 21:24] LABS: Glucose - Point of Care 180 mg/dl (70-99)
[2024-06-26] MEDS: LANTUS 0.12 UNITS SC (22:22)
[2024-06-26 23:00] VITALS: BP 109/63
[2024-06-27] MEDS: DILAUDID 0.25 MG IV ×6 (00:46→21:52)
[2024-06-27] MEDS: LR 1000 IV (02:35)
[2024-06-27 06:00] VITALS: BMI 24.1
--- NOTE | 2024-06-27 06:53 | W.PN.GI.CBS2 ---
Today's Communication / Plan
-
See assessment and plan for details.
Assessment / Plan
-
1. Diarrhea: With history of C. difficile in the past status post fecal transplant, in immunocompromised setting given kidney/liver transplant, though infectious workup has been unremarkable including C. difficile, for the past 6 weeks, likely
initial infection with postinfectious sequelae such as microscopic colitis. Colonoscopy was unremarkable, biopsies still pending. Overall he is much better with no significant diarrhea for the past 2 days, did not require any Imodium yesterday.
At this point would continue Imodium and Lomotil as needed, fiber and supportive care.
2. Status post OLT: LFTs remain normal, has had no changes to medications. He will continue to follow-up with hepatology as outpatient.
Will sign off for now, please call back with any further questions.
Subjective
Subjective
Date of Service: June 27, 2024
Patient feeling okay, no diarrhea yesterday, did not take any Imodium yesterday. Some lower crampy abdominal pain, some nausea, though did eat well yesterday without difficulty.
Objective
Data Reviewed
Laboratory Data:
Laboratory Results
PT 13.9 Sec (11.4-14.6) 06/22/24 05:37
INR 1.04 06/22/24 05:37
Total Bilirubin 0.7 mg/dl (0.2-1.3) 06/26/24 07:00
AST 12 U/L (17-59) L 06/26/24 07:00
ALT < 10 U/L (0-50) 06/26/24 07:00
Alkaline Phosphatase 96 U/L (38-126) 06/26/24 07:00
Vital Signs and I&O:
Vital Signs
Temp Pulse Resp BP Pulse Ox
98.2 F 89 18 109/63 100
06/26/24 23:00 06/26/24 23:00 06/26/24 23:00 06/26/24 23:00 06/26/24 23:00
I&O
06/25/24 06/26/24 06/27/24
06:59 06:59 06:59
Intake Total 1200 / 1200 1260 / 1260 900 / 900
Output Total 100 / 100 2650 / 2650
Balance 1200 / 1200 1160 / 1160 -1750 / -1750
Physical Exam
Physical Exam
General: NAD
Abdomen: normal bowel sounds, soft, no tenderness, no masses or bruits, no ascites
[2024-06-27 07:00] VITALS: BP 126/65
[2024-06-27 07:48] LABS: Glucose - Point of Care 132 mg/dl (70-99)
[2024-06-27 07:49] LABS: Hematocrit 29.5 % (39.0-52.0); Hemoglobin 10.5 g/dL (13.0-18.0); Mean Corp Hgb Conc. 35.6 g/dL (33.0-37.0); Mean Corpuscular Hgb 31.1 pg (27.0-31.0); Mean Corpuscular Volume 87.3 fL (80.0-94.0); Mean Platelet Volume 10.8 fL (7.4-10.4); Platelet Count 98 10^3/uL (130-400); Red Blood Cell Count 3.38 10^6/uL (4.70-6.10); Red Cell Dist. Width 14.2 % (11.5-14.5)
[2024-06-27 08:17] LABS: Blood Urea Nitrogen 29 mg/dl (9-20); Calcium 8.5 mg/dl (8.4-10.2); Carbon Dioxide 21 mmol/L (22-30); Chloride 108 mmol/L (98-107); Estimated Creatinine Clearance 66 ml/min; Glucose 105 mg/dl (70-99); Potassium 4.5 mmol/L (3.5-5.1); Sodium 137 mmol/L (135-145); eGFR > 60.00
[2024-06-27] MEDS: NOVOLOG FLEXPEN-MODERATE RESISTANCE SC ×3 (08:17→17:10)
[2024-06-27] MEDS: MYFORTIC DELAYED REL. 180 MG PO ×2 (08:21→20:23)
[2024-06-27] MEDS: NEURONTIN 100 MG PO ×2 (08:21→20:23)
[2024-06-27] MEDS: ASPIR LOW (ENTERIC COATED) 81 MG PO (08:21)
[2024-06-27] MEDS: METAMUCIL, KONSYL 1 PACKET PO (08:21)
[2024-06-27] MEDS: PROGRAF 3 MG PO ×2 (08:21→21:52)
[2024-06-27] MEDS: IMODIUM 2 MG PO (08:32)
[2024-06-27] MEDS: NOVOLOG FLEXPEN SC ×2 (08:42→12:11)
--- NOTE | 2024-06-27 11:23 | W.PN.HOSP.TC ---
Documented by User: Helen Gamez MD, Resident 06/27/24 12:03
Today's Communication/Plan
-
Imodium for diarrhea
Malabsorptive work up
Assessment / Plan
Assessment / Plan
64 year old male has a PMH of prior liver/kidney transplant at [facility] in 2021 (on mycophenolate and tacrolimus for 2.5 years), hep C cirrhosis, hx of c-diff post transplant and a recent one 7 months ago ) hx of Esophageal varices,, CAD (with
stents), IDDM, DVT with IVF filter, BPH s/p TURP, and Right ORIF hip and hx of foot infection. He was admitted with 6 weeks duration of diarrhea which got worsen yesterday and he felt very weak. At admission his lab results were significant for
elevated glucose to 297 and UA showed occult blood 4(+). His abdominal CT reported moderate hydro of transplanted kidney worsening from prior stenting, post liver transplant, portal HTN, splenomegaly, cyst and calculus of [place] kidney and Urinary
bladder trabeculation (question chronic outlet obstruction or neurogenic bladder).
Problem list
Diarrhea
Hx of C-Diff
Hx of kidney/liver transplant on immunosuppressants
Left Hydronephrosis of transplant kidney
Trombocytopenia
Chronic Right hip pain
Diabetes Mellitus, Type II
Coronary Artery Disease with stent
hx of DVT with prior filter
BPH s/p TURP
#Diarrhea
-On immunosuppression due liver/kidney transplant in 2021
-Continue tacrolimus and mycophenolate
-Tacrolimus level pending
-Hx c-diff 7 months ago/recovered with fidaxomicin, per patient report
-C diff, norovirus negative, Giardia, crypto, negative /stool culture negative
-HIV (-)
-GI on board/ had a c had a colonoscopy on 06/24/24 to rule out CMV - biopsy results are pending- Colonoscopy without obvious colitis-
-Continue Imodium, Metamucil
-Start extensive malabsorptive workup with fecal elastase, fecal trypsin, fecal calprotectin, stool fat quantitated, stool osmolar gap as diarrhea has restarted
-Consider discharge to SNF once diarrhea under control with imodium and continue outpatient with GI
#Hydronephrosis of transplant kidney
-Was seen by transplant team one month ago/told no issues
-Cr trending up to 1.6 -> 1.4 ->1.2
-Nephrology following
-Kidney ultrasound revealed mild hydronephrosis but improved from prior ab/pelvis CT
-Cr 1.2 today resolved. Continue to monitor
#Diabetes Mellitus, Type II
-Continue Lantus and Novolog
-HgbA1c 6.6
-ISS
#Anemia
-Denies any acute bleeding
-Monitor CBC
#Thrombocytopenia
-Plt 138 -> 105
-No signs of active bleeding
-Follow CBC
#Chronic Right hip pain
-Hip X ray: No acute abnormality: Chronic healed intertrochanteric fracture of the right proximal femur with a dynamic hip screw in place.
-Continue gabapentin -dose can be adjusted
-PT/OT assessment
#Coronary Artery Disease with stent
-Continue aspirin
Hx DVT s/p IVC filter
DVT Proph: SC Heparin
Code Status: Full Code
Anticipated Discharge: Within 24 hours
Subjective/Interval History
-
Date of Service: June 27, 2024
Objective Data
-
Labs:
Laboratory Results
06/27/24
07:01
WBC 7.0
Hgb 10.5 L
Hct 29.5 L
Plt Count 98 L
Sodium 137
Potassium 4.5
Chloride 108 H
Carbon Dioxide 21 L
BUN 29 H
Creatinine 1.2
Glucose 105 H
Calcium 8.5
Vital Signs:
Vital Signs
Temp Pulse Resp BP Pulse Ox
97.8 F 81 19 126/65 100
06/27/24 07:00 06/27/24 07:00 06/27/24 07:00 06/27/24 07:00 06/27/24 07:00
I&O
06/26/24 06/27/24 06/28/24
06:59 06:59 06:59
Intake Total 1260 / 1260 900 / 900
Output Total 100 / 100 2650 / 2650
Balance 1160 / 1160 -1750 / -1750
Review of Systems
-
History Source: Patient
EENT: Reports No Symptoms Reported
Respiratory: Reports No Symptoms
Cardiac: Reports No Symptoms
Abdomen/GI: Reports Abdominal Pain, Nausea and Diarrhea
Skin: Reports No Symptoms
Neuro: Reports No Symptoms
Physical Exam
-
General: No Apparent Distress and Appears Chronically Ill
HEENT: Normocephalic
Respiratory: Clear to Auscultation
Cardiac: Regular Rhythm and S1/S2
GI: Soft, Nondistended, Normal Bowel Sounds and Tender (LLQ tenderness)
Musculoskeletal: No Edema
Skin: Warm and Dry
Neuro: AO x 3
Psych: Calm

Documented by User: Oh Dorman DO 06/27/24 13:03
Subjective/Interval History
-
Date of Service: June 27, 2024
Seen and examined at bedside. Diarrhea this morning.
[2024-06-27 11:34] LABS: Glucose - Point of Care 112 mg/dl (70-99)
--- NOTE | 2024-06-27 12:22 | W.PN.NEPH.PH ---
Today's Communication / Plan
-
Await tacro
Assessment/Plan
-
64yo with hx hep C cirrhosis with prior liver/kidney transplant at [facility] in 2021 on mycophenolate and tacrolimus, c-diff post transplant, hx Esophageal varices, prior stenting ? esophageal vs biliary, CAD with prior stenting, IDDM, DVT with
filter, BPH with prior TURP, ORIF hip, prior foot infection presents with diarrhea for 6 weeks. On admission noted with stable labs with elevated glucose 297, bun 30 with normal creat. Culture with neg c-diff, Giardia, crypto, and norovirus with
other cx pending. In review with patient he did go to [place] for eval and had 8 days stay. He recall stool studies completed and denies knowledge of any infection. He denies hx flex or colonoscopy during admission. No change in
Immunosuppression medication doses or other new medications. CT on admission with moderate hydro of transplanted kidney worsening from prior stenting, post liver transplant, portal HTN, splenomegaly, cyst and calculus of [place] kidney, ? bladder
outlet obstruction.
Impression
ROXY
Persistent diarrhea
Coronary Artery Disease with stents
Left Kidney/Liver Transplant in 2021 for Cirrhosis secondary to Hepatitis C-at [facility] February 26, 2022, b/l 1.3
Diabetes Mellitus, Type II no history of diabetic neuropathy or retinopathy
Chronic back pain requiring chronic opioid dependence
DJD -C3-C4, C5-C6
Urine drug screen positive for fentanyl
Anemia
Thrombocytopenia
DVT
Plan:
Tacrolimus 3.4 on June 21
Repeat tacrolimus level pending
May IV fluids
If diarrhea returns, may need to consider holding mycophenolate, but this would need to be discussed with his liver transplant team
Follow BMP
-
-
Date of Service: June 27, 2024
CC / HPI / ROS
-
Chief Complaint:
Kidney transplant
History of Present Illness:
ROXY/creatinine down to 1.2
Metabolic acidosis persists 21
No diarrhea, received Imodium today
BP stable
Review of Systems:
No chest pain or shortness of breath
Labs
-
Labs:
WBC 7.0 10^3/uL (4.8-10.8) 06/27/24 07:01
RBC 3.38 10^6/uL (4.70-6.10) L 06/27/24 07:01
Hgb 10.5 g/dL (13.0-18.0) L 06/27/24 07:01
Hct 29.5 % (39.0-52.0) L 06/27/24 07:01
Plt Count 98 10^3/uL (130-400) L 06/27/24 07:01
Sodium 137 mmol/L (135-145) 06/27/24 07:01
Potassium 4.5 mmol/L (3.5-5.1) 06/27/24 07:01
Chloride 108 mmol/L (98-107) H 06/27/24 07:01
Carbon Dioxide 21 mmol/L (22-30) L 06/27/24 07:01
BUN 29 mg/dl (9-20) H 06/27/24 07:01
Creatinine 1.2 mg/dL (0.7-1.3) 06/27/24 07:01
eGFR > 60.00 06/27/24 07:01
Glucose 105 mg/dl (70-99) H 06/27/24 07:01
Calcium 8.5 mg/dl (8.4-10.2) 06/27/24 07:01
Albumin 2.9 g/dl (3.5-5.0) L 06/26/24 07:00
Physical Exam
-
Vital Signs:
Vital Signs
Temp Pulse Resp BP Pulse Ox
97.8 F 81 19 126/65 100
06/27/24 07:00 06/27/24 07:00 06/27/24 07:00 06/27/24 07:00 06/27/24 07:00
Cardiovascular:: Regular rate and rhythm
Respiratory:: Bilateral: CTA
Lung Excursion:: Normal
Abdomen:: Nontender and Soft
Bowel Sounds:: Normal
Extremity Edema:: None: Bilateral:
[2024-06-27] MEDS: LR IV (13:26)
[2024-06-27 17:10] LABS: Glucose - Point of Care 134 mg/dl (70-99)
[2024-06-27 17:40] VITALS: BP 119/56
[2024-06-27 17:41] VITALS: BP 93/57
[2024-06-27] MEDS: NOVOLOG FLEXPEN 3 UNITS SC (17:52)
[2024-06-27 21:50] LABS: Glucose - Point of Care 189 mg/dl (70-99)
[2024-06-27] MEDS: LANTUS 0.12 UNITS SC (21:52)
[2024-06-27] MEDS: REQUIP 0.5 MG PO (21:52)
[2024-06-27 23:01] VITALS: BP 123/70
[2024-06-28] MEDS: DILAUDID 0.25 MG IV ×6 (01:52→22:16)
[2024-06-28 06:00] VITALS: BMI 23.0
[2024-06-28 07:00] VITALS: BP 99/59
[2024-06-28 07:39] LABS: Glucose - Point of Care 147 mg/dl (70-99)
[2024-06-28] MEDS: NOVOLOG FLEXPEN 3 UNITS SC ×3 (07:45→17:00)
[2024-06-28] MEDS: NOVOLOG FLEXPEN-MODERATE RESISTANCE SC ×2 (07:45→12:19)
[2024-06-28] MEDS: PROGRAF 3 MG PO ×2 (07:46→20:25)
[2024-06-28] MEDS: MYFORTIC DELAYED REL. 180 MG PO ×2 (07:46→20:26)
[2024-06-28] MEDS: ASPIR LOW (ENTERIC COATED) 81 MG PO (07:47)
[2024-06-28] MEDS: METAMUCIL, KONSYL 1 PACKET PO (07:47)
[2024-06-28] MEDS: NEURONTIN 100 MG PO ×2 (07:47→20:26)
[2024-06-28 09:17] LABS: Hematocrit 33.7 % (39.0-52.0); Hemoglobin 11.7 g/dL (13.0-18.0); Mean Corp Hgb Conc. 34.7 g/dL (33.0-37.0); Mean Corpuscular Hgb 30.5 pg (27.0-31.0); Mean Platelet Volume 10.9 fL (7.4-10.4); Platelet Count 120 10^3/uL (130-400); Red Blood Cell Count 3.83 10^6/uL (4.70-6.10); Red Cell Dist. Width 14.1 % (11.5-14.5); White Blood Cell Count 6.2 10^3/uL (4.8-10.8)
[2024-06-28] MEDS: LR 1000 IV ×2 (09:24→18:11)
[2024-06-28 09:38] LABS: Blood Urea Nitrogen 28 mg/dl (9-20); Calcium 8.8 mg/dl (8.4-10.2); Carbon Dioxide 22 mmol/L (22-30); Chloride 107 mmol/L (98-107); Estimated Creatinine Clearance 66 ml/min; Glucose 136 mg/dl (70-99); Potassium 4.3 mmol/L (3.5-5.1); Sodium 137 mmol/L (135-145); eGFR > 60.00
--- NOTE | 2024-06-28 10:33 | W.PN.HOSP.TC ---
Today's Communication/Plan
-
Malabsorptive work up pending
Assessment / Plan
Assessment / Plan
64 year old male has a PMH of prior liver/kidney transplant at [facility] in 2021 (on mycophenolate and tacrolimus for 2.5 years), hep C cirrhosis, hx of c-diff post transplant and a recent one 7 months ago ) hx of Esophageal varices,, CAD (with
stents), IDDM, DVT with IVF filter, BPH s/p TURP, and Right ORIF hip and hx of foot infection. He was admitted with 6 weeks duration of diarrhea which got worsen yesterday and he felt very weak. At admission his lab results were significant for
elevated glucose to 297 and UA showed occult blood 4(+). His abdominal CT reported moderate hydro of transplanted kidney worsening from prior stenting, post liver transplant, portal HTN, splenomegaly, cyst and calculus of [place] kidney and Urinary
bladder trabeculation (question chronic outlet obstruction or neurogenic bladder).
Problem list
Diarrhea
Hx of C-Diff
Hx of kidney/liver transplant on immunosuppressants
Left Hydronephrosis of transplant kidney
Trombocytopenia
Chronic Right hip pain
Diabetes Mellitus, Type II
Coronary Artery Disease with stent
hx of DVT with prior filter
BPH s/p TURP
#Diarrhea
-On immunosuppression due liver/kidney transplant in 2021
-Continue tacrolimus and mycophenolate
-Tacrolimus level pending
-Hx c-diff 7 months ago/recovered with fidaxomicin, per patient report
-C diff, norovirus negative, Giardia, crypto, negative /stool culture negative
-HIV (-)
-GI on board/ had a c had a colonoscopy on 06/24/24 to rule out CMV - biopsy results are inconclusive for cause- Colonoscopy without obvious colitis-
-Continue Imodium, Metamucil
-Extensive malabsorptive workup with fecal elastase, fecal calprotectin, stool fat quantitated, stool osmolar gap as diarrhea pending
-Consider discharge to SNF once diarrhea under control with imodium and continue outpatient with GI
#Hydronephrosis of transplant kidney
-Was seen by transplant team one month ago/told no issues
-Kidney ultrasound revealed mild hydronephrosis but improved from prior ab/pelvis CT
-Cr trending up to 1.6 -> 1.4 ->1.2
-Nephrology following
-Tacrolimus level within therapeutic range 8.1
ROXY
-Resolved
#Diabetes Mellitus, Type II
-Continue Lantus and Novolog
-HgbA1c 6.6
-ISS
#Anemia
-Denies any acute bleeding
-Monitor CBC
#Thrombocytopenia
-No signs of active bleeding
-Follow CBC
#Chronic Right hip pain
-Hip X ray: No acute abnormality: Chronic healed intertrochanteric fracture of the right proximal femur with a dynamic hip screw in place.
-Continue gabapentin -dose can be adjusted
-PT/OT assessment
#Coronary Artery Disease with stent
-Continue aspirin
Hx DVT s/p IVC filter
DVT Proph: SC Heparin
Code Status: Full Code
Anticipated Discharge: 24 - 48 hours
Subjective/Interval History
-
Date of Service: June 28, 2024
Objective Data
-
Labs:
Laboratory Results
06/28/24
08:00
WBC 6.2
Hgb 11.7 L
Hct 33.7 L
Plt Count 120 L D
Sodium 137
Potassium 4.3
Chloride 107
Carbon Dioxide 22
BUN 28 H
Creatinine 1.2
Glucose 136 H
Calcium 8.8
Vital Signs:
Vital Signs
Temp Pulse Resp BP Pulse Ox
98.3 F 85 18 99/59 99
06/28/24 07:00 06/28/24 07:00 06/28/24 07:00 06/28/24 07:00 06/28/24 07:00
I&O
06/27/24 06/28/24 06/29/24
06:59 06:59 06:59
Intake Total 900 / 900 480 / 480 240 / 240
Output Total 2650 / 2650 1100 / 1100
Balance -1750 / -1750 -620 / -620 240 / 240
Review of Systems
-
History Source: Patient
Respiratory: Reports No Symptoms
Cardiac: Reports No Symptoms
Abdomen/GI: Reports Abdominal Pain (LLQ), Nausea and Diarrhea; Denies Vomiting, Constipated, Bloody Stools, Black Stools or Hematemesis
Genitourinary: Reports No Symptoms
Neuro: Reports No Symptoms
Physical Exam
-
General: No Apparent Distress
HEENT: Normocephalic
Cardiac: Regular Rhythm and S1/S2
GI: Soft, Nondistended, Normal Bowel Sounds and Tender (LLQ)
Musculoskeletal: No Edema
Neuro: AO x 3
Psych: Calm
[2024-06-28 11:47] LABS: Glucose - Point of Care 109 mg/dl (70-99)
--- NOTE | 2024-06-28 12:52 | CM ---
Addendum entered by Georgiana Salcedo 06/28/24 16:05:
Patient seen bedside, updated [facility] cannot accept, if [facility] unable to accept patient has been accepted at [facility] who can offer patient a bed for weekend. Patient reports he feels he is not medically stable for discharge,
provided IMM and discussed right to appeal when discharge order is placed. CM discussed transport with patient, patient inquiring if Hospital has free transport as every other Hospital does. CM discussed [facility] transport and cost. Patient reports he
will figure out transport, asking if he is able to return home then go to SNF. Patient discussed patient will need to discharge from Hospital to facility. TT to Resident with update. CM will continue to follow for all discharge planning needs.
Plan; Likely [facility] SNF in [place]
Addendum entered by Georgiana Salcedo 06/28/24 15:44:
CM confirmed with SNF liaison Asia from [facility], patient does have Medicare days, does not need auth through [facility]. Patient confirms he has not been at a SNF in about a year, patient requesting referrals to [facility], otherwise is agreeable to d/c to [facility]. CM awaiting to hear from [facility] and [facility] regarding ability to accept. Update to Resident.
Plan; awaiting [facility] and [facility] review, otherwise patient agreeable for [facility] SNF in [place]
Original Note:
CM reviewed chart, multiple referrals placed for short term rehab, awaiting call back from [facility]iaison [facility] and Asia from [facility] to see if SNF are able to accept [facility] auth as patient has used all of Medicare SNF days. CM
will continue SNF search, will require auth through [facility]. CM will continue to follow for all discharge planning needs.
Plan; SNF search, multiple referrals placed, auth required through [facility]
--- NOTE | 2024-06-28 13:30 | W.PN.NEPH.PH ---
Today's Communication / Plan
-
IV fluids
Assessment/Plan
-
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 esophageal vs biliary, CAD with prior stenting, IDDM, DVT with
filter, BPH with prior TURP, ORIF hip, prior foot infection presents with diarrhea for 6 weeks. On admission noted with stable labs with elevated glucose 297, bun 30 with normal creat. Culture with neg c-diff, Giardia, crypto, and norovirus with
other cx pending. In review with patient he did go to [place] for eval and had 8 days stay. He recall stool studies completed and denies knowledge of any infection. He denies hx flex or colonoscopy during admission. No change in
Immunosuppression medication doses or other new medications. CT on admission with moderate hydro of transplanted kidney worsening from prior stenting, post liver transplant, portal HTN, splenomegaly, cyst and calculus of [place] kidney, ? bladder
outlet obstruction.
Impression
ROXY
Persistent diarrhea
Coronary Artery Disease with stents
Left Kidney/Liver Transplant in 2021 for Cirrhosis secondary to Hepatitis C-at [facility] February 26, 2022, b/l 1.3
Diabetes Mellitus, Type II no history of diabetic neuropathy or retinopathy
Chronic back pain requiring chronic opioid dependence
DJD -C3-C4, C5-C6
Urine drug screen positive for fentanyl
Anemia
Thrombocytopenia
DVT
Plan:
Tacrolimus 3.4 on June 21
Repeat tacrolimus level June 27 without any change = 8.1 (high normal we will continue current dose)
Continue IV fluids with increasing diarrhea
Continued, may need to consider holding mycophenolate, but this would need to be discussed with his liver transplant team/having said that he is on low-dose and this is an acute situation as he has not had diarrhea over the last year.
Follow BMP
-
-
Date of Service: June 28, 2024
CC / HPI / ROS
-
Chief Complaint:
Kidney transplant
History of Present Illness:
ROXY/creatinine down to 1.2
Metabolic acidosis persists
No diarrhea, received Imodium today
BP stable
Review of Systems:
No chest pain or shortness of breath
Labs
-
Labs:
WBC 6.2 10^3/uL (4.8-10.8) 06/28/24 08:00
RBC 3.83 10^6/uL (4.70-6.10) L 06/28/24 08:00
Hgb 11.7 g/dL (13.0-18.0) L 06/28/24 08:00
Hct 33.7 % (39.0-52.0) L 06/28/24 08:00
Plt Count 120 10^3/uL (130-400) L D 06/28/24 08:00
Sodium 137 mmol/L (135-145) 06/28/24 08:00
Potassium 4.3 mmol/L (3.5-5.1) 06/28/24 08:00
Chloride 107 mmol/L (98-107) 06/28/24 08:00
Carbon Dioxide 22 mmol/L (22-30) 06/28/24 08:00
BUN 28 mg/dl (9-20) H 06/28/24 08:00
Creatinine 1.2 mg/dL (0.7-1.3) 06/28/24 08:00
eGFR > 60.00 06/28/24 08:00
Glucose 136 mg/dl (70-99) H 06/28/24 08:00
Calcium 8.8 mg/dl (8.4-10.2) 06/28/24 08:00
Albumin 2.9 g/dl (3.5-5.0) L 06/26/24 07:00
Physical Exam
-
Vital Signs:
Vital Signs
Temp Pulse Resp BP Pulse Ox
98.3 F 85 18 99/59 99
06/28/24 07:00 06/28/24 07:00 06/28/24 07:00 06/28/24 07:00 06/28/24 07:45
Cardiovascular:: Regular rate and rhythm
Respiratory:: Bilateral: CTA
Lung Excursion:: Normal
Abdomen:: Nontender and Soft
Bowel Sounds:: Normal
Extremity Edema:: None: Bilateral:
[2024-06-28 15:37] VITALS: BP 107/58
[2024-06-28 16:52] LABS: Glucose - Point of Care 271 mg/dl (70-99)
[2024-06-28] MEDS: NOVOLOG FLEXPEN-MODERATE RESISTANCE 5 UNITS SC (17:00)
[2024-06-28 21:37] LABS: Glucose - Point of Care 213 mg/dl (70-99)
[2024-06-28] MEDS: LANTUS 0.12 UNITS SC (22:15)
[2024-06-28] MEDS: REQUIP 0.5 MG PO (22:16)
[2024-06-28 22:53] VITALS: BP 126/74
[2024-06-29] MEDS: DILAUDID 0.25 MG IV ×6 (02:48→23:31)
[2024-06-29] MEDS: LR 1000 IV ×2 (05:03→15:46)
[2024-06-29 05:59] LABS: Hematocrit 29.1 % (39.0-52.0); Hemoglobin 10.6 g/dL (13.0-18.0); Mean Corp Hgb Conc. 36.4 g/dL (33.0-37.0); Mean Corpuscular Hgb 31.6 pg (27.0-31.0); Mean Corpuscular Volume 86.9 fL (80.0-94.0); Mean Platelet Volume 10.8 fL (7.4-10.4); Platelet Count 104 10^3/uL (130-400); Red Blood Cell Count 3.35 10^6/uL (4.70-6.10); Red Cell Dist. Width 13.8 % (11.5-14.5); White Blood Cell Count 5.9 10^3/uL (4.8-10.8)
[2024-06-29 06:00] VITALS: BMI 23.2
[2024-06-29 06:23] LABS: Blood Urea Nitrogen 25 mg/dl (9-20); Calcium 8.4 mg/dl (8.4-10.2); Carbon Dioxide 24 mmol/L (22-30); Chloride 108 mmol/L (98-107); Estimated Creatinine Clearance 66 ml/min; Glucose 259 mg/dl (70-99); Potassium 4.8 mmol/L (3.5-5.1); Sodium 136 mmol/L (135-145); eGFR > 60.00
[2024-06-29 07:00] VITALS: BP 125/62
[2024-06-29] MEDS: METAMUCIL, KONSYL 1 PACKET PO (07:39)
[2024-06-29] MEDS: ASPIR LOW (ENTERIC COATED) 81 MG PO (07:40)
[2024-06-29] MEDS: MYFORTIC DELAYED REL. 180 MG PO ×2 (07:40→19:26)
[2024-06-29] MEDS: PROGRAF 3 MG PO ×2 (07:40→19:25)
[2024-06-29] MEDS: NEURONTIN 100 MG PO ×2 (07:40→19:25)
[2024-06-29 07:44] LABS: Glucose - Point of Care 238 mg/dl (70-99)
[2024-06-29] MEDS: NOVOLOG FLEXPEN-MODERATE RESISTANCE 3 UNITS SC (07:45)
[2024-06-29] MEDS: NOVOLOG FLEXPEN 3 UNITS SC ×3 (07:45→16:55)
[2024-06-29 08:17] VITALS: BP 125/62
[2024-06-29] MEDS: IMODIUM 2 MG PO (11:31)
[2024-06-29 11:33] LABS: Glucose - Point of Care 92 mg/dl (70-99)
[2024-06-29] MEDS: NOVOLOG FLEXPEN-MODERATE RESISTANCE SC (11:34)
--- NOTE | 2024-06-29 12:08 | W.PN.NEPH.PH ---
Today's Communication / Plan
-
BMP in the morning no change
Assessment/Plan
-
64yo with hx hep C cirrhosis with prior liver/kidney transplant at [facility] in 2021 on mycophenolate and tacrolimus, c-diff post transplant, hx Esophageal varices, prior stenting ? esophageal vs biliary, CAD with prior stenting, IDDM, DVT with
filter, BPH with prior TURP, ORIF hip, prior foot infection presents with diarrhea for 6 weeks. On admission noted with stable labs with elevated glucose 297, bun 30 with normal creat. Culture with neg c-diff, Giardia, crypto, and norovirus with
other cx pending. In review with patient he did go to [place] for eval and had 8 days stay. He recall stool studies completed and denies knowledge of any infection. He denies hx flex or colonoscopy during admission. No change in
Immunosuppression medication doses or other new medications. CT on admission with moderate hydro of transplanted kidney worsening from prior stenting, post liver transplant, portal HTN, splenomegaly, cyst and calculus of [place] kidney, ? bladder
outlet obstruction.
Impression
ROXY
Persistent diarrhea
Coronary Artery Disease with stents
Left Kidney/Liver Transplant in 2021 for Cirrhosis secondary to Hepatitis C-at [facility] February 26, 2022, b/l 1.3
Diabetes Mellitus, Type II no history of diabetic neuropathy or retinopathy
Chronic back pain requiring chronic opioid dependence
DJD -C3-C4, C5-C6
Urine drug screen positive for fentanyl
Anemia
Thrombocytopenia
DVT
Plan:
Tacrolimus 3.4 on June 21
Repeat tacrolimus level June 27 without any change = 8.1 (high normal we will continue current dose)
Continue IV fluids with increasing diarrhea
Continued, may need to consider holding mycophenolate, but this would need to be discussed with his liver transplant team/having said that he is on low-dose and this is an acute situation as he has not had diarrhea over the last year.
Follow BMP
Placed a call to [facility] Monday no follow-up.
-
-
Date of Service: June 29, 2024
CC / HPI / ROS
-
Chief Complaint:
Kidney transplant
History of Present Illness:
ROXY/creatinine down to 1.2
Metabolic acidosis persists 21
No diarrhea, received Imodium today
BP stable
Review of Systems:
No chest pain or shortness of breath
Labs
-
Labs:
WBC 5.9 10^3/uL (4.8-10.8) 06/29/24 05:44
RBC 3.35 10^6/uL (4.70-6.10) L 06/29/24 05:44
Hgb 10.6 g/dL (13.0-18.0) L 06/29/24 05:44
Hct 29.1 % (39.0-52.0) L 06/29/24 05:44
Plt Count 104 10^3/uL (130-400) L 06/29/24 05:44
Sodium 136 mmol/L (135-145) 06/29/24 05:44
Potassium 4.8 mmol/L (3.5-5.1) 06/29/24 05:44
Chloride 108 mmol/L (98-107) H 06/29/24 05:44
Carbon Dioxide 24 mmol/L (22-30) 06/29/24 05:44
BUN 25 mg/dl (9-20) H 06/29/24 05:44
Creatinine 1.2 mg/dL (0.7-1.3) 06/29/24 05:44
eGFR > 60.00 06/29/24 05:44
Glucose 259 mg/dl (70-99) H 06/29/24 05:44
Calcium 8.4 mg/dl (8.4-10.2) 06/29/24 05:44
Albumin 2.9 g/dl (3.5-5.0) L 06/26/24 07:00
Physical Exam
-
Vital Signs:
Vital Signs
Temp Pulse Resp BP Pulse Ox
97.8 F 80 15 125/62 100
06/29/24 07:00 06/29/24 07:00 06/29/24 07:00 06/29/24 07:00 06/29/24 07:00
Cardiovascular:: Regular rate and rhythm
Respiratory:: Bilateral: CTA
Lung Excursion:: Normal
Abdomen:: Nontender and Soft
Bowel Sounds:: Normal
Extremity Edema:: None: Bilateral:
--- NOTE | 2024-06-29 13:00 | W.PN.HOSP.TC ---
Today's Communication/Plan
-
Encouraged use of Imodium when he has diarrhea
Daily Metamucil
Discuss cholestyramine with GI
Monitor BMs
Assessment / Plan
Assessment / Plan
64 year old male has a PMH of prior liver/kidney transplant at [facility] in 2021 (on mycophenolate and tacrolimus for 2.5 years), hep C cirrhosis, hx of c-diff post transplant and a recent one 7 months ago ) hx of Esophageal varices,, CAD (with
stents), IDDM, DVT with IVF filter, BPH s/p TURP, and Right ORIF hip and hx of foot infection. He was admitted with 6 weeks duration of diarrhea which got worsen yesterday and he felt very weak. At admission his lab results were significant for
elevated glucose to 297 and UA showed occult blood 4(+). His abdominal CT reported moderate hydro of transplanted kidney worsening from prior stenting, post liver transplant, portal HTN, splenomegaly, cyst and calculus of [place] kidney and Urinary
bladder trabeculation (question chronic outlet obstruction or neurogenic bladder).
#Acute on chronic watery diarrhea
-Unclear etiology; differentials include malabsorptive process versus ADR of mycophenolate
-Initially had concern for infectious process versus CMV colitis versus microscopic colitis
-Issue has been present for >1-month; stool culture, O&P, C. diff, HIV, sigmoidoscopy with biopsy all negative
-Remains with symptoms however has been resistant to taking Imodium as directed
-Sent out fecal elastase, calprotectin, stool fat, stool osmolar gap to assess for nonobstructive proximal
-GI following, recommended using Imodium as needed and daily Metamucil
Plan
-Encourage as needed Imodium and Metamucil
-Will speak to GI about cholestyramine empirically
-Monitor bowel status, CBC, temperature
-Follow-up malabsorptive labs as above
-Curve will need to follow-up with hepatology for consideration of holding MMF
#Hydronephrosis of transplanted kidney
#Prerenal ROXY due to hypotensive episode (resolved with IVF)
-CT imaging here shows relatively stable degree of hydronephrosis
-Had episode of hypotension with creatinine up to 1.6, back to 1.2 with IVF
-Continue to trend BMP and encourage oral intake and use of Imodium
-Tacrolimus level 8.1, within the therapeutic range
#CAD s/p PCI
-Home medications include aspirin; not on beta-jakub or statin
-No signs of active coronary disease at this time
-No allergy to statin listed; will consider starting moderate intensity
#IDDM2
-Most recent A1c 6.6%; Home regimen includes Lantus and NovoLog
-No known history of microvascular complications
-Remains on home regimen with ISS and Accu-Cheks
-Blood glucose goal 140-180
#Chronic normocytic anemia
-Likely inflammatory anemia with chronic diarrhea, OLT, kidney transfer
-No signs or symptoms of bleeding while here, bowel movements nonbloody
-Trend CBC while here
#H/O cirrhosis s/p OLT
#Thrombocytopenia
-Previous cirrhosis secondary to viral hepatitis
-Home medications include MMF and tacrolimus
-Suspect thrombocytopenia related to previous portal hypertension
-No signs of bleeding at this time, CBC has been stable
-Continue to monitor CBC
#Chronic Right hip pain
-Hip X ray: No acute abnormality: Chronic healed intertrochanteric fracture of the right proximal femur with a dynamic hip screw in place.
-Continue gabapentin -dose can be adjusted
-PT/OT assessment
#Lumbosacral radiculopathy
-Patient states he was recently at [place] and had MRI there, received records with no MRI done
-Should have follow-up with outpatient team for consideration of TERESSA
-PT/OT following here
#H/O C. difficile colitis s/p FMT
DVT prophylaxis: S/p IVC filter, SQ hep
Code Status: Full Code
Disposition: SNF when stable
Anticipated Discharge: 24 - 48 hours
Subjective/Interval History
-
Date of Service: June 29, 2024
Seen and examined at the bedside. No acute events reported overnight. AFVSS this morning
He tells me that he had diarrhea 3 times yesterday morning and twice overnight. Also says he did not take Imodium. Seems surprised at that he had to ask for the as needed medication. I encouraged him to ask his nurse to take Imodium when he has
diarrhea
He otherwise denies any new acute complaints this morning.
Objective Data
-
Labs:
Laboratory Results
06/29/24
05:44
WBC 5.9
Hgb 10.6 L
Hct 29.1 L
Plt Count 104 L
Sodium 136
Potassium 4.8
Chloride 108 H
Carbon Dioxide 24
BUN 25 H
Creatinine 1.2
Glucose 259 H
Calcium 8.4
Vital Signs:
Vital Signs
Temp Pulse Resp BP Pulse Ox
97.8 F 80 15 125/62 100
06/29/24 07:00 06/29/24 07:00 06/29/24 07:00 06/29/24 07:00 06/29/24 07:00
I&O
06/28/24 06/29/24 06/30/24
06:59 06:59 06:59
Intake Total 480 / 480 3880 / 3880
Output Total 1100 / 1100 275 / 275
Balance -620 / -620 3605 / 3605
Review of Systems
-
History Source: Patient
All other systems: Reviewed and negative
Physical Exam
-
General: Well Developed, Well Nourished and Appears Chronically Ill
HEENT: Normocephalic, Atraumatic, Moist Mucous Membranes and Anicteric
Respiratory: Clear to Auscultation and Non Labored Respirations
Cardiac: Regular Rhythm and Murmur; Negative Rub or Gallop
GI: Soft, Nondistended, Normal Bowel Sounds and Tender (LLQ, no peritoneal signs)
Musculoskeletal: No Clubbing, No Cyanosis and No Edema
Skin: Warm, Dry and Normal Turgor; Negative Rash or Jaundice
Neuro: AO x 3 and Nonfocal/Grossly Intact
Psych: Calm
Data Reviewed
-
Labs: Labs Reviewed by me, Discussed with Physician (Try Out Person) and Discussed with Patient
[2024-06-29 15:05] VITALS: BP 110/63
[2024-06-29 16:50] LABS: Glucose - Point of Care 186 mg/dl (70-99)
[2024-06-29] MEDS: NOVOLOG FLEXPEN-MODERATE RESISTANCE 1 UNITS SC (16:55)
[2024-06-29 20:49] LABS: Glucose - Point of Care 207 mg/dl (70-99)
[2024-06-29 21:23] LABS: Pancreatic Elastase, Fecal 266 ug/g (>=100)
[2024-06-29] MEDS: LANTUS 0.12 UNITS SC (21:47)
[2024-06-29] MEDS: REQUIP 0.5 MG PO (21:48)
[2024-06-29 22:31] VITALS: BP 143/75
[2024-06-30] MEDS: LR 1000 IV ×2 (02:12→12:21)
[2024-06-30 03:01] LABS: Fat, Fecal - Neutral Normal (Normal); Fat, Fecal - Split Normal (Normal)
[2024-06-30] MEDS: DILAUDID 0.25 MG IV ×5 (03:34→21:11)
[2024-06-30 06:00] VITALS: BMI 23.2
[2024-06-30 07:10] LABS: % Basophils 0.3 % (0-2); % Eosinophils 6.1 % (0-6); % Immature Granulocytes 0.5 % (0-0.5); % Lymphocytes 25.2 % (20.5-51.1); % Monocytes 6.3 % (1.7-9.3); % Neutrophils 61.6 % (42.2-75.2); Absolute Eosinophils 0.4 10^3/uL (0-0.7); Absolute Lymphocytes 1.5 10^3/uL (1.2-3.4); Absolute Monocytes 0.4 10^3/uL (0.1-0.6); Absolute Neutrophils 3.7 10^3/uL (1.4-6.5); Hematocrit 30.9 % (39.0-52.0); Hemoglobin 11.1 g/dL (13.0-18.0); Mean Corp Hgb Conc. 35.9 g/dL (33.0-37.0); Mean Corpuscular Hgb 31.1 pg (27.0-31.0); Mean Corpuscular Volume 86.6 fL (80.0-94.0); Mean Platelet Volume 10.5 fL (7.4-10.4); Nucleated Red Blood Cells % 0 % (-); Platelet Count 106 10^3/uL (130-400); Red Blood Cell Count 3.57 10^6/uL (4.70-6.10); Red Cell Dist. Width 13.7 % (11.5-14.5); White Blood Cell Count 5.9 10^3/uL (4.8-10.8)
[2024-06-30 07:34] VITALS: BP 126/88
[2024-06-30 07:46] LABS: Glucose - Point of Care 186 mg/dl (70-99)
[2024-06-30 08:18] LABS: Blood Urea Nitrogen 21 mg/dl (9-20); Calcium 8.6 mg/dl (8.4-10.2); Carbon Dioxide 25 mmol/L (22-30); Chloride 105 mmol/L (98-107); Estimated Creatinine Clearance 72 ml/min; Glucose 207 mg/dl (70-99); Potassium 4.6 mmol/L (3.5-5.1); Sodium 136 mmol/L (135-145); eGFR > 60.00
[2024-06-30] MEDS: NOVOLOG FLEXPEN 3 UNITS SC ×3 (08:30→16:56)
[2024-06-30] MEDS: NOVOLOG FLEXPEN-MODERATE RESISTANCE 1 UNITS SC ×3 (08:31→16:57)
[2024-06-30] MEDS: PROGRAF 3 MG PO ×2 (08:33→21:13)
[2024-06-30] MEDS: NEURONTIN 100 MG PO ×2 (08:38→21:12)
[2024-06-30] MEDS: MYFORTIC DELAYED REL. 180 MG PO ×2 (08:38→21:13)
[2024-06-30] MEDS: ASPIR LOW (ENTERIC COATED) 81 MG PO (08:38)
[2024-06-30] MEDS: METAMUCIL, KONSYL 1 PACKET PO (08:39)
--- NOTE | 2024-06-30 10:03 | CM ---
Addendum entered by Jacqueline Silverio 06/30/24 13:19:
Met with patient at the bedside to discuss discharge plan; SNF bed is available today; patient stated he is not leaving
IMM benefit explained; form signed @ [phone]
Patient insists that Nephrology is going to see him tomorrow. Per Attending, patient is medically cleared for discharge and Nephrology is not planning on seeing patient tomorrow
Addendum entered by Jacqueline Silverio 06/30/24 11:09:
[facility]
Report # [id number] or [phone]
CM will send DC Summary via [facility] when available on chart; site's fax is out of service per [place] # [phone]
Addendum entered by Jacqueline Silverio 06/30/24 11:03:
Met with patient to discuss SNF referral status; explained that [facility] called and are able to accept him this afternoon
Dr. Dorman notified; he will meet with patient to discuss
Original Note:
Per Attending, patient is stable for discharge
[facility] unable to [facility]; left a voice mail for [facility] to confirm bed status for today
--- NOTE | 2024-06-30 11:41 | W.PN.HOSP.TC ---
Today's Communication/Plan
-
Encourage Imodium and Metamucil
Outpatient follow-up with hepatology to consider stopping MMF
Outpatient follow-up with gastroenterology for stool osmolar gap for further
Discharge to SNF
Assessment / Plan
Assessment / Plan
64 year old male has a PMH of prior liver/kidney transplant at [facility] in 2021 (on mycophenolate and tacrolimus for 2.5 years), hep C cirrhosis, hx of c-diff post transplant and a recent one 7 months ago ) hx of Esophageal varices,, CAD (with
stents), IDDM, DVT with IVF filter, BPH s/p TURP, and Right ORIF hip and hx of foot infection. He was admitted with 6 weeks duration of diarrhea which got worsen yesterday and he felt very weak. At admission his lab results were significant for
elevated glucose to 297 and UA showed occult blood 4(+). His abdominal CT reported moderate hydro of transplanted kidney worsening from prior stenting, post liver transplant, portal HTN, splenomegaly, cyst and calculus of [place] kidney and Urinary
bladder trabeculation (question chronic outlet obstruction or neurogenic bladder).
#Acute on chronic watery diarrhea
-Unclear etiology; differentials include malabsorptive process versus ADR of mycophenolate
-Initially had concern for infectious process versus CMV colitis versus microscopic colitis
-Issue has been present for >1-month; stool culture, O&P, C. diff, HIV, sigmoidoscopy with biopsy all negative
-Remains with symptoms however has been resistant to taking Imodium as directed
-Sent out fecal elastase, calprotectin, stool fat, stool osmolar gap to assess for nonobstructive proximal
-GI following, recommended using Imodium as needed and daily Metamucil
-Patient continues to not use Imodium as recommended
Plan
-Encourage as needed Imodium and Metamucil
-Monitor bowel status, CBC, temperature
-OP follow-up with GI for stool osmolar gap to differentiate etiology of watery diarrhea
-will need to follow-up with hepatology for consideration of holding MMF
#Hydronephrosis of transplanted kidney
#Prerenal ROXY due to hypotensive episode (resolved with IVF)
-CT imaging here shows relatively stable degree of hydronephrosis
-Had episode of hypotension with creatinine up to 1.6, back to 1.2 with IVF
-Continue to trend BMP and encourage oral intake and use of Imodium
-Tacrolimus level 8.1, within the therapeutic range
#CAD s/p PCI
-Home medications include aspirin; not on beta-jakub or statin
-No signs of active coronary disease at this time
-No allergy to statin listed; will consider starting moderate intensity
#IDDM2
-Most recent A1c 6.6%; Home regimen includes Lantus and NovoLog
-No known history of microvascular complications
-Remains on home regimen with ISS and Accu-Cheks
-Blood glucose goal 140-180
#Chronic normocytic anemia
-Likely inflammatory anemia with chronic diarrhea, OLT, kidney transfer
-No signs or symptoms of bleeding while here, bowel movements nonbloody
-Trend CBC while here
#H/O cirrhosis s/p OLT
#Thrombocytopenia
-Previous cirrhosis secondary to viral hepatitis
-Home medications include MMF and tacrolimus
-Suspect thrombocytopenia related to previous portal hypertension
-No signs of bleeding at this time, CBC has been stable
-Continue to monitor CBC
#Chronic Right hip pain
-Hip X ray: No acute abnormality: Chronic healed intertrochanteric fracture of the right proximal femur with a dynamic hip screw in place.
-Continue gabapentin -dose can be adjusted
-PT/OT assessment
#Lumbosacral radiculopathy
-Patient states he was recently at [place] and had MRI there, received records with no MRI done
-Should have follow-up with outpatient team for consideration of TERESSA
-PT/OT following here
#H/O C. difficile colitis s/p FMT
DVT prophylaxis: S/p IVC filter, SQ hep
Code Status: Full Code
Disposition: SNF
Anticipated Discharge: Today
Subjective/Interval History
-
Date of Service: June 30, 2024
Seen and examined at the bedside. No acute events reported overnight. AFVSS this morning.
Renal function stable. Remainder of labs stable as well. Blood pressure normotensive
Per nursing he is refusing Imodium. When I spoke with him he denies this. States that he took his Imodium once yesterday despite multiple episodes of diarrhea and my discussion with him yesterday right encouraged him to use the Imodium up to 4
hours as needed in order to optimize its effect. He also mentions that he is unable to be discharged today as 'the kidney doctor told me they want to keep me for blood test tomorrow and observe me as a wean off of medicine'. I spoke with the
dramatic art teacher on the case the last 3 days and he denies any of this. Recommends OP follow-up with his liver transplant team for consideration of discontinuing MMF however no plans for any further inpatient workup here.
Objective Data
-
Labs:
Laboratory Results
06/30/24
06:48
WBC 5.9
Hgb 11.1 L
Hct 30.9 L
Plt Count 106 L
Sodium 136
Potassium 4.6
Chloride 105
Carbon Dioxide 25
BUN 21 H
Creatinine 1.1
Glucose 207 H
Calcium 8.6
Vital Signs:
Vital Signs
Temp Pulse Resp BP Pulse Ox
97.8 F 81 15 126/88 99
06/30/24 07:34 06/30/24 07:34 06/30/24 07:34 06/30/24 07:34 06/30/24 07:34
I&O
06/29/24 06/30/24 07/01/24
06:59 06:59 06:59
Intake Total 3880 / 3880 2880 / 2880
Output Total 275 / 275 700 / 700
Balance 3605 / 3605 2180 / 2180
Review of Systems
-
History Source: Patient
All other systems: Reviewed and negative
Physical Exam
-
General: Well Developed, Well Nourished, No Apparent Distress and Appears Chronically Ill
HEENT: Normocephalic, Atraumatic and Moist Mucous Membranes
Respiratory: Clear to Auscultation and Non Labored Respirations
Cardiac: Regular Rhythm, S1/S2 and Murmur; Negative Rub or Gallop
GI: Soft, Nontender, Nondistended and Normal Bowel Sounds
Musculoskeletal: No Clubbing, No Cyanosis and No Edema
Skin: Warm and Dry; Negative Rash
Neuro: AO x 3 and Nonfocal/Grossly Intact
Psych: Calm
Data Reviewed
-
Labs: Labs Reviewed by me, Discussed with Physician (Nephrology) and Discussed with Patient
[2024-06-30 11:43] LABS: Glucose - Point of Care 176 mg/dl (70-99)
[2024-06-30 15:03] VITALS: BP 114/66
--- NOTE | 2024-06-30 16:07 | W.PN.NEPH.PH ---
Today's Communication / Plan
-
Maintenance IV fluids
Assessment/Plan
-
64yo with hx hep C cirrhosis with prior liver/kidney transplant at [facility] in 2021 on mycophenolate and tacrolimus, c-diff post transplant, hx Esophageal varices, prior stenting ? esophageal vs biliary, CAD with prior stenting, IDDM, DVT with
filter, BPH with prior TURP, ORIF hip, prior foot infection presents with diarrhea for 6 weeks. On admission noted with stable labs with elevated glucose 297, bun 30 with normal creat. Culture with neg c-diff, Giardia, crypto, and norovirus with
other cx pending. In review with patient he did go to [place] for eval and had 8 days stay. He recall stool studies completed and denies knowledge of any infection. He denies hx flex or colonoscopy during admission. No change in
Immunosuppression medication doses or other new medications. CT on admission with moderate hydro of transplanted kidney worsening from prior stenting, post liver transplant, portal HTN, splenomegaly, cyst and calculus of [place] kidney, ? bladder
outlet obstruction.
Impression
ROXY
Persistent diarrhea
Coronary Artery Disease with stents
Left Kidney/Liver Transplant in 2021 for Cirrhosis secondary to Hepatitis C-at [facility] February 26, 2022, b/l 1.3
Diabetes Mellitus, Type II no history of diabetic neuropathy or retinopathy
Chronic back pain requiring chronic opioid dependence
DJD -C3-C4, C5-C6
Urine drug screen positive for fentanyl
Anemia
Thrombocytopenia
DVT
Plan:
Tacrolimus 3.4 on June 21
Repeat tacrolimus level June 27 without any change = 8.1 (high normal we will continue current dose)
Continue IV fluids with increasing diarrhea
Continued, may need to consider holding mycophenolate, but this would need to be discussed with his liver transplant team/having said that he is on low-dose and this is an acute situation as he has not had diarrhea over the last year.
Follow BMP
Placed a call to [facility] Monday no follow-up.
[facility] nurse, Renetta, .
Patient prefers to not be discharged with ongoing diarrhea. He will need maintenance IV fluids in the meantime.
-
-
Date of Service: June 30, 2024
CC / HPI / ROS
-
Chief Complaint:
Kidney transplant
History of Present Illness:
ROXY/creatinine down to 1.2
Metabolic acidosis persists 21
No diarrhea, received Imodium today
BP stable
Review of Systems:
No chest pain or shortness of breath
Labs
-
Labs:
WBC 5.9 10^3/uL (4.8-10.8) 06/30/24 06:48
RBC 3.57 10^6/uL (4.70-6.10) L 06/30/24 06:48
Hgb 11.1 g/dL (13.0-18.0) L 06/30/24 06:48
Hct 30.9 % (39.0-52.0) L 06/30/24 06:48
Plt Count 106 10^3/uL (130-400) L 06/30/24 06:48
Sodium 136 mmol/L (135-145) 06/30/24 06:48
Potassium 4.6 mmol/L (3.5-5.1) 06/30/24 06:48
Chloride 105 mmol/L (98-107) 06/30/24 06:48
Carbon Dioxide 25 mmol/L (22-30) 06/30/24 06:48
BUN 21 mg/dl (9-20) H 06/30/24 06:48
Creatinine 1.1 mg/dL (0.7-1.3) 06/30/24 06:48
eGFR > 60.00 06/30/24 06:48
Glucose 207 mg/dl (70-99) H 06/30/24 06:48
Calcium 8.6 mg/dl (8.4-10.2) 06/30/24 06:48
Albumin 2.9 g/dl (3.5-5.0) L 06/26/24 07:00
Physical Exam
-
Vital Signs:
Vital Signs
Temp Pulse Resp BP Pulse Ox
98.2 F 80 14 114/66 100
06/30/24 15:03 06/30/24 15:03 06/30/24 15:03 06/30/24 15:03 06/30/24 15:03
Cardiovascular:: Regular rate and rhythm
Respiratory:: Bilateral: CTA
Lung Excursion:: Normal
Abdomen:: Nontender and Soft
Bowel Sounds:: Normal
Extremity Edema:: None: Bilateral:
[2024-06-30 16:27] LABS: Glucose - Point of Care 193 mg/dl (70-99)
[2024-06-30] MEDS: REQUIP 0.5 MG PO (21:12)
[2024-06-30 21:26] LABS: Glucose - Point of Care 286 mg/dl (70-99)
[2024-06-30] MEDS: LANTUS 0.12 UNITS SC (22:18)
[2024-06-30 22:59] VITALS: BP 135/72
[2024-07-01] MEDS: LR 1000 IV ×2 (01:08→08:08)
[2024-07-01] MEDS: DILAUDID 0.25 MG IV ×5 (01:11→23:07)
[2024-07-01] MEDS: IMODIUM 2 MG PO (02:02)
[2024-07-01 06:00] VITALS: BMI 24.2
[2024-07-01 07:07] VITALS: BP 111/62
[2024-07-01 07:13] LABS: Glucose - Point of Care 138 mg/dl (70-99)
[2024-07-01] MEDS: NOVOLOG FLEXPEN-MODERATE RESISTANCE SC ×2 (07:21→12:03)
[2024-07-01] MEDS: NOVOLOG FLEXPEN 3 UNITS SC ×2 (08:09→15:41)
[2024-07-01] MEDS: PROGRAF 3 MG PO ×2 (08:10→21:20)
[2024-07-01] MEDS: NEURONTIN 100 MG PO ×2 (08:11→21:19)
[2024-07-01] MEDS: ASPIR LOW (ENTERIC COATED) 81 MG PO (08:11)
[2024-07-01] MEDS: METAMUCIL, KONSYL 1 PACKET PO (08:11)
[2024-07-01] MEDS: MYFORTIC DELAYED REL. 180 MG PO ×2 (08:11→21:20)
--- NOTE | 2024-07-01 11:12 | CM ---
CM reviewed chart, reviewed with Hospitalist and Residents, patient clear for discharge today. Patient seen bedside, reports he is not going to rehab, does not feel stable for discharge and will be appealing his discharge. IMM reviewed, signed,
patient provided with copy and contact number for Paige to call for appeal, aware once decision is made, pending outcome, patient will be responsible to pay for continued hospital stay. CM will continue to follow for all discharge planning needs.
Plan; appealing discharge
[2024-07-01 11:58] LABS: Glucose - Point of Care 73 mg/dl (70-99)
[2024-07-01] MEDS: NOVOLOG FLEXPEN SC (12:03)
--- NOTE | 2024-07-01 12:14 | PTCARENOTE ---
pt's blood sugar was 73 at lunch time. I had the pt order lunch and gave the pt juice. The pt refused insulin, which is understandable since his blood sugar was low.
--- NOTE | 2024-07-01 12:57 | W.PN.HOSP.TC ---
Today's Communication/Plan
-
- Patient was discussed to be discharged. He is medically cleared and stable His telehealth case manager arrange SNF for the patient. He is not willing to be discharged and, considering of appealing
Assessment / Plan
Assessment / Plan
64 year old male has a PMH of prior liver/kidney transplant at [facility] in 2021 (on mycophenolate and tacrolimus for 2.5 years), hep C cirrhosis, hx of c-diff post transplant and a recent one 7 months ago ) hx of Esophageal varices,, CAD (with
stents), IDDM, DVT with IVF filter, BPH s/p TURP, and Right ORIF hip and hx of foot infection. He was admitted with 6 weeks duration of diarrhea which got worsen recently and and due feeling weak. At admission his lab results were significant for
elevated glucose to 297 and UA showed occult blood 4(+). His abdominal CT reported moderate hydro of transplanted kidney worsening from prior stenting, post liver transplant, portal HTN, splenomegaly, cyst and calculus of [place] kidney and Urinary
bladder trabeculation (question chronic outlet obstruction or neurogenic bladder).
Acute on chronic diarrhea
Hydronephrosis of transplanted kidney
ROXY
Coronary Artery Disease with stents
Left Kidney/Liver Transplant in 2021 for Cirrhosis secondary to Hepatitis C-at [facility] February 26, 2022, b/l 1.3
Diabetes Mellitus, Type II no history of diabetic neuropathy or retinopathy
Chronic back pain requiring chronic opioid dependence
DJD -C3-C4, C5-C6
Right hip ORIF surgery
Urine drug screen positive for fentanyl
Anemia
Thrombocytopenia
History of DVT with IVC filter
#Acute on chronic watery diarrhea with unclear etiology
-Seen by GI-recommended continue Imodium and Lomotil as needed, fiber and supportive care
-Unclear etiology; differentials include malabsorptive process versus ADR of mycophenolate-
-Stool culture, O&P, C. diff, HIV, sigmoidoscopy with biopsy all negative- CMV and microscopic colitis excluded- recommended using Imodium as needed and daily Metamucil
-Patient is not complement taking Imodium as directed to address his diarrhea
-Fecal studies come back normal( Stool fat normal, stool split fat normal, stool pancreatic elastase normal, stool calprotectin pending)-can be followed at the outpatient setting
-Monitor bowel status, CBC, temperature
-OP follow-up with GI for stool osmolar gap to differentiate etiology of watery diarrhea
-will need to follow-up with hepatology for consideration of holding MMF-needs to be follow-up by his transplantation team
#Hydronephrosis of transplanted kidney
-Nephrology on board-continue tacrolimus-planning to discharge his transplant team about holding mycophenolate or not
-ROXY due to hypotensive episode-resolved with IVF
-Creatinine level came back to normal
-CT imaging here shows relatively stable degree of hydronephrosis
-Had episode of hypotension with creatinine up to 1.6, back to 1.1 with IVF
-Continue to trend BMP and encourage oral intake and use of Imodium
-Tacrolimus level 8.1, within the therapeutic range
#CAD s/p PCI
-Home medications include aspirin; not on beta-jakub or statin
-No signs of active coronary disease at this time
-No allergy to statin listed; will consider starting moderate intensity
#IDDM2
-Most recent A1c 6.6%; Home regimen includes Lantus and NovoLog
-No known history of microvascular complications
-Remains on home regimen with ISS and Accu-Cheks
-Blood glucose goal 140-180
#Chronic normocytic anemia
-Likely inflammatory anemia with chronic diarrhea, OLT, kidney transfer
-No signs or symptoms of bleeding while here, bowel movements nonbloody
-Trend CBC while here
#H/O cirrhosis s/p OLT
#Thrombocytopenia
-Previous cirrhosis secondary to viral hepatitis
-Home medications include MMF and tacrolimus
-Suspect thrombocytopenia related to previous portal hypertension
-No signs of bleeding at this time, CBC has been stable
-Continue to monitor CBC
#Chronic Right hip pain
-Hip X ray: No acute abnormality: Chronic healed intertrochanteric fracture of the right proximal femur with a dynamic hip screw in place.
-Continue gabapentin -dose can be adjusted
-PT/OT assessment
#Lumbosacral radiculopathy
-Patient states he was recently at [facility] and had MRI there, received records with no MRI done
-Should have follow-up with outpatient team for consideration of TERESSA
-PT/OT following here
#H/O C. difficile colitis s/p FMT
DVT prophylaxis: S/p IVC filter, SQ hep
Code Status: Full Code
Disposition: SNF
Anticipated Discharge: Today
Subjective/Interval History
-
Date of Service: July 01, 2024
Patient denies chest pain, shortness of breath and abdominal pain. Reports on going watery diarrhea. No acute events reported overnight per care team. His results shows normal creatinine level at 1.1. Patient was reminded to take his Imodium
regularly up to 4 hours as needed to address his ongoing diarrhea to have the full effect with the medication. The patient was planned to be discharged over the weekend but he did not accept. The patient is medically cleared to be discharged this
morning and telehealth case manager was involved to arrange SNF facility for him. He is not willing to be discharged and, considering of appealing
Objective Data
-
Vital Signs:
Vital Signs
Temp Pulse Resp BP Pulse Ox
97.9 F 77 15 111/62 96
07/01/24 07:07 07/01/24 07:07 07/01/24 07:07 07/01/24 07:07 07/01/24 08:00
I&O
06/30/24 07/01/24 07/02/24
06:59 06:59 06:59
Intake Total 2880 / 2880 900 / 900
Output Total 700 / 700 1450 / 1450
Balance 2180 / 2180 -550 / -550
Review of Systems
-
History Source: Patient
Constitutional: Reports No Symptoms
EENT: Reports No Symptoms Reported
Respiratory: Reports No Symptoms
Cardiac: Reports No Symptoms
Abdomen/GI: Reports Diarrhea
Genitourinary: Reports No Symptoms
Musculoskeletal: Reports Other (Pain of right hip)
Skin: Reports No Symptoms
Neuro: Reports No Symptoms
Physical Exam
-
General: Well Developed, Well Nourished, No Apparent Distress and Appears Chronically Ill
HEENT: Normocephalic, Atraumatic and Moist Mucous Membranes
Respiratory: Clear to Auscultation
Cardiac: Regular Rhythm and S1/S2
GI: Soft, Nontender and Nondistended
Musculoskeletal: No Clubbing, No Cyanosis and No Edema
Skin: Warm
Neuro: Awake, Alert, Oriented, AO x 3 and Nonfocal/Grossly Intact
[2024-07-01 14:57] VITALS: BP 108/58
[2024-07-01 15:36] LABS: Glucose - Point of Care 217 mg/dl (70-99)
[2024-07-01] MEDS: NOVOLOG FLEXPEN-MODERATE RESISTANCE 3 UNITS SC (15:42)
--- NOTE | 2024-07-01 15:54 | W.DCSUMMARY ---
Documented by User: Nuria Sandoval MD, Resident 07/02/24 13:28
Discharge Summary
Discharge Data
Date of Admission: 06/21/24
Date of Discharge: 07/02/24
-
Pending Results: No
Hospital Course
Disposition : [facility]/SNF
Primary care physician : Unknown
Principal Discharge diagnosis : Watery diarrhea of unknown, Prerenal acute kidney injury, Hydronephrosis of transplanted kidney.
Chronic Discharge diagnosis : Coronary Artery Disease with stents, Left Kidney/Liver Transplant in 2021 for Cirrhosis secondary to Hepatitis C-at [facility] February 26, 2022,Diabetes Mellitus, Type II no history of diabetic neuropathy or
retinopathy, Chronic back pain requiring chronic opioid dependence, History of C. difficile colitis, DJD -C3-C4, C5-C6, Right hip ORIF surgery, Anemia, Thrombocytopenia, History of DVT with IVC filter
Hospital Course :
#Watery diarrhea of unknown: The patient was admitted to the hospital with ongoing watery diarrhea for last 6 weeks and gotten worsen recently. On admission, his labs was significant for elevated glucose to 297, elevated bun to 30 with normal
creatinine level. His CT showed moderate hydronephrosis of transplant kidney and portal hypertension. He was admitted for further assessment and was seen by GI team. His stool culture and studies resulted negative for a possible infection and
parasites. He underwent colonoscopy to taken biopsy to exclude CMV colitis given been on tacrolimus and MMF regarding his kidney-liver transplantation. Biospy came back negative for CMV and microscopic colitis. Other stool studies including stool
fat, stool split fat and stool pancreatic elastase resulted normal. Stool calprotectin pending and can be followed at outpatient setting. GI recommended to take Imodium up to 4H PRN and Metamucil daily. Patient did not take Imodium and not
compliant with his treatment management. His diarrhea also can be related to his MMF medication which he has been on for 2.5 years. GI recommended to follow up with hepatology as outpatient.
#Hydronephrosis of transplanted kidney
#Prerenal acute kidney injury: The patient was admitted with normal level of creatinine 1.1 and it gradually increased to 1.6 on 06/25/24. Nephrology followed the patient and his creatinine level came back normal to 1.1 after given IV fluids. He was
obtained a kidney US which noted. 'Mild hydronephrosis of the left lower quadrant renal transplant, improved from prior'. His tacrolimus level was checked and came back in normal range.
#Other Medical Problems:These include coronary Artery Disease with stents, Left Kidney/Liver Transplant in 2021 for Cirrhosis secondary to Hepatitis C-at [facility] February 26, 2022,Diabetes Mellitus, Type II no history of diabetic neuropathy or
retinopathy, Chronic back pain requiring chronic opioid dependence, History of C. difficile colitis, DJD -C3-C4, C5-C6, Right hip ORIF surgery, Anemia, Thrombocytopenia and History of DVT with IVC filter. These medical issues were stable during his
hospitalization. Medications were continued as able to.
Multiple attempts were made to discharge the patient. He was explained many times that he can be followed up at outpatient setting for having further studies and treatment for his diarrhea. He refused to leave from the hospital. A SNF also
arranged for him but he did not accept to be discharged.
Important imaging findings :
Abd CT 06/20/24
IMPRESSION:
1. Moderate hydronephrosis of transplant kidney at the left iliac fossa, worse as compared with the prior study. No ureteral filling defects identified at CT.
2. Post liver transplant.
3. Findings related to portal hypertension with splenomegaly and large number of dilated and tortuous varices in the left upper quadrant.
4. Small cysts and calculus of the [place] left kidney as seen previously.
5. Urinary bladder trabeculation, question chronic outlet obstruction or neurogenic bladder.
Renal US: 06/25/24
Impression:

1. Mild hydronephrosis of the left lower quadrant renal transplant, improved from prior.
Procedure findings :
Colonoscopy 06/24/24
Findings:
Hemorrhoids were found on perianal exam.
The terminal ileum appeared normal.
A moderate amount of liquid semi-liquid stool was found in the entire
colon, making visualization difficult. Lavage of the area was performed
using copious amounts of sterile water, resulting in clearance with fair
visualization.
Scattered small-mouthed diverticula were found in the sigmoid colon,
descending colon and ascending colon.
There is no endoscopic evidence of polyps, ulcerations, colitis,
congestion or mucosal abnormalities in the entire colon. Biopsies for
histology were taken with a cold forceps from the right colon, left
colon and rectum for evaluation of microscopic colitis and CMV colitis.
Internal hemorrhoids were found during retroflexion. The hemorrhoids
were small and Grade I (internal hemorrhoids that do not prolapse).
Impression: - Preparation of the colon was fair.
- Hemorrhoids found on perianal exam.
- The examined portion of the ileum was normal.
- Stool in the entire examined colon.
- Diverticulosis in the sigmoid colon, in the
descending colon and in the ascending colon.
- Biopsies were taken to exclude microscopic colitis /
CMV colitis.
- Internal hemorrhoids.
Recommendation: - Return patient to [facility] for [facility] care.
- Await pathology results.
- Continue with anti-diarrheal meds.
- Consider EGD for small bowel biopsies if his
diarrhea persists.
Discharge Plan
-
Patient Disposition: [facility]/SNF
Discharge Diagnosis/Procedures: Watery diarrhea of unknown
Prerenal acute kidney injury
Hypotension
Status post liver transplant
Status post left kidney transplant
History of C. difficile colitis s/p FMT
Condition: Fair
Diet: No restrictions and Other diet
Additional Diets: High-fiber
Activity: As tolerated
Driving Restrictions: As prior to admission
Bathing Restrictions: None
Blood Work: BMP and CBC 1 week after discharge
Others Tests: Stool osmolar gap, colonoscopy with gastroenterology
Other Services: PT
Activity Restrictions/Additional Instructions:
Skin Care Instructions
Heels- apply moisture lotion or Vaseline and continue heel off loading in bed.
Follow up at wound care center if needed, call for an appointment.
Instructions: Diarrhea in teens and adults
Referrals:
Santiago Alvares, DO [Active] - in one to two weeks
UNKNOWN - PT NOT,INTERVIEWE [Family Provider] -
Kaylen Vanessa, DO [Active] - in one to two weeks
Additional Discharge Medication Instructions: Continue Metamucil fiber 3.4 g daily
Continue Imodium 2 mg every 4 hours as needed for diarrhea (up to 4 doses in a day)
Start Lomotil as needed if Imodium does not improve diarrhea
Decreased insulin glargine to 12 units nightly
Decreased insulin lispro to 7 units with meals
Talk to your campus receptionist about stopping mycophenolate as this medication MAY be associated with your diarrhea.
Prescriptions:
New
loperamide 2 mg Capsule
2 mg PO Q4HPRN PRN (Reason: diarrhea) 30 Days Qty: 90 0RF
insulin aspart U-100 100 unit/mL (3 mL) Insulin Pen
3 unit SC AC 30 Days Qty: 2.7 0RF
insulin glargine [Lantus Solostar U-100 Insulin] 100 unit/mL (3 mL) insulin pen
12 unit SC QPM 30 Days Qty: 3.6 0RF
diphenoxylate-atropine 2.5-0.025 mg Tablet
1 tab PO Q6HPRN PRN (Reason: Diarrhea despite imodium) 30 Days Qty: 30 0RF
Metamucil Fiber Singles 3.4 gram Powder In Packet
1 packet PO DAILY 30 Days Qty: 30 0RF
ropinirole 0.25 mg Tablet
0.5 mg PO HS 30 Days Qty: 60 0RF
gabapentin 100 mg Capsule
100 mg PO BID 30 Days Qty: 60 0RF
oxycodone 10 mg tablet
10 mg PO Q8H PRN (Reason: Moderate-Severe Pain) 5 Days Qty: 20 0RF
cefdinir 300 mg Capsule
300 mg PO Q12 6 Days Qty: 12 0RF
Continued
aspirin 81 mg Tablet,Delayed Release (Dr/Ec)
81 mg PO DAILY
tacrolimus 1 mg Capsule
3 mg PO Q12H@799,1999
Patient Comments:
last filled on 12/23/2023 for 30-day supply.
mycophenolate sodium 180 mg Tablet,Delayed Release (Dr/Ec)
180 mg PO Q12H@799,1999
Patient Comments:
last filled on 12/23/2023 for 30-day supply.
Discontinued
insulin lispro 100 unit/mL Insulin Pen
7 sliding scale dose SC AC
insulin glargine [Lantus Solostar U-100 Insulin] 100 unit/mL (3 mL) Insulin Pen
20 unit SC HS
Discharge Orders:
Discharge Patient (As Directed); Ordered 07/01/24
Ordered By: Nuria Sandoval
Discharge Date and Time
Print Language: BURMESE

Documented by User: Luciano Day MD 07/02/24 14:57
Discharge Summary
Discharge Data
Date of Admission: 06/21/24
Date of Discharge: 07/02/24
Discharge Plan
-
Patient Disposition: [facility]/SNF
Discharge Diagnosis/Procedures: Watery diarrhea of unknown
Prerenal acute kidney injury
Hypotension
Status post liver transplant
Status post left kidney transplant
History of C. difficile colitis s/p FMT
Condition: Fair
Diet: No restrictions and Other diet
Additional Diets: High-fiber
Activity: As tolerated
Driving Restrictions: As prior to admission
Bathing Restrictions: None
Blood Work: BMP and CBC 1 week after discharge
Others Tests: Stool osmolar gap, colonoscopy with gastroenterology
Other Services: PT
Activity Restrictions/Additional Instructions:
Skin Care Instructions
Heels- apply moisture lotion or Vaseline and continue heel off loading in bed.
Follow up at wound care center if needed, call for an appointment.
Instructions: Diarrhea in teens and adults
Referrals:
Santiago Alvares, DO [Active] - in one to two weeks
UNKNOWN - PT NOT,INTERVIEWE [Family Provider] -
Kaylen Vanessa, DO [Active] - in one to two weeks
Additional Discharge Medication Instructions: Continue Metamucil fiber 3.4 g daily
Continue Imodium 2 mg every 4 hours as needed for diarrhea (up to 4 doses in a day)
Start Lomotil as needed if Imodium does not improve diarrhea
Decreased insulin glargine to 12 units nightly
Decreased insulin lispro to 7 units with meals
Talk to your campus receptionist about stopping mycophenolate as this medication MAY be associated with your diarrhea.
Prescriptions:
New
loperamide 2 mg Capsule
2 mg PO Q4HPRN PRN (Reason: diarrhea) 30 Days Qty: 90 0RF
insulin aspart U-100 100 unit/mL (3 mL) Insulin Pen
3 unit SC AC 30 Days Qty: 2.7 0RF
insulin glargine [Lantus Solostar U-100 Insulin] 100 unit/mL (3 mL) insulin pen
12 unit SC QPM 30 Days Qty: 3.6 0RF
diphenoxylate-atropine 2.5-0.025 mg Tablet
1 tab PO Q6HPRN PRN (Reason: Diarrhea despite imodium) 30 Days Qty: 30 0RF
Metamucil Fiber Singles 3.4 gram Powder In Packet
1 packet PO DAILY 30 Days Qty: 30 0RF
ropinirole 0.25 mg Tablet
0.5 mg PO HS 30 Days Qty: 60 0RF
gabapentin 100 mg Capsule
100 mg PO BID 30 Days Qty: 60 0RF
oxycodone 10 mg tablet
10 mg PO Q8H PRN (Reason: Moderate-Severe Pain) 5 Days Qty: 20 0RF
cefdinir 300 mg Capsule
300 mg PO Q12 6 Days Qty: 12 0RF
Continued
aspirin 81 mg Tablet,Delayed Release (Dr/Ec)
81 mg PO DAILY
tacrolimus 1 mg Capsule
3 mg PO Q12H@
Patient Comments:
last filled on 12/23/2023 for 30-day supply.
mycophenolate sodium 180 mg Tablet,Delayed Release (Dr/Ec)
180 mg PO Q12H@
Patient Comments:
last filled on 12/23/2023 for 30-day supply.
Discontinued
insulin lispro 100 unit/mL Insulin Pen
7 sliding scale dose SC AC
insulin glargine [Lantus Solostar U-100 Insulin] 100 unit/mL (3 mL) Insulin Pen
20 unit SC HS
Discharge Orders:
Discharge Patient (As Directed); Ordered 07/01/24
Ordered By: Nuria Sandoval
Discharge Date and Time
Print Language: BURMESE
--- NOTE | 2024-07-01 16:02 | W.PN.NEPH.PH ---
Addendum entered and electronically signed by Luciano Day MD 07/01/24 16:25:
Will begin discharge planning
He will need to start taking Imodium however refusing
GI soft diet diabetic
Culture negative C. difficile Giardia crypto norovirus
S/p C-scope with biopsies that were negative will treat from the
Could be a functional diarrhea
Encourage p.o. intake
At this time as there is no other clinical reason to keep him in the hospital he will need to follow-up with outpatient GI transplant liver/kidney at [facility] continue mycophenolate/tacrolimus
Original Note:
Today's Communication / Plan
-
see plan
Assessment/Plan
-
64yo with hx hep C cirrhosis with prior liver/kidney transplant at [facility] in 2021 on mycophenolate and tacrolimus, c-diff post transplant, hx Esophageal varices, prior stenting ? esophageal vs biliary, CAD with prior stenting, IDDM, DVT with
filter, BPH with prior TURP, ORIF hip, prior foot infection presents with diarrhea for 6 weeks. On admission noted with stable labs with elevated glucose 297, bun 30 with normal creat. Culture with neg c-diff, Giardia, crypto, and norovirus with
other cx pending. In review with patient he did go to [place] for eval and had 8 days stay. He recall stool studies completed and denies knowledge of any infection. He denies hx flex or colonoscopy during admission. No change in
Immunosuppression medication doses or other new medications. CT on admission with moderate hydro of transplanted kidney worsening from prior stenting, post liver transplant, portal HTN, splenomegaly, cyst and calculus of [place] kidney, ? bladder
outlet obstruction.
Impression
ROXY
Persistent diarrhea
Coronary Artery Disease with stents
Left Kidney/Liver Transplant in 2021 for Cirrhosis secondary to Hepatitis C-at [facility] February 26, 2022, b/l 1.3
Diabetes Mellitus, Type II no history of diabetic neuropathy or retinopathy
Chronic back pain requiring chronic opioid dependence
DJD -C3-C4, C5-C6
Urine drug screen positive for fentanyl
Anemia
Thrombocytopenia
DVT
Plan:
stable renal function cr 1.1
Tacrolimus 3.4 on June 21
Repeat tacrolimus level June 27 without any change = 8.1 (high normal we will continue current dose)
Continue IV fluids with ongoing diarrhea
may need to consider holding mycophenolate, but this would need to be discussed with his liver transplant team/having said that he is on low-dose and this is an acute situation
c/o mild graft pain improving hydro on renal US, check bladder scan and check UA with cx
[facility] nurse, Renetta, -called but no response, left message Dr Wellington.
he would like to f.u with our practice after d/c
however he feels may not be ready for d/c yet with ongoing diarrhea
-
-
Date of Service: July 01, 2024
CC / HPI / ROS
-
Chief Complaint:
Kidney transplant
History of Present Illness:
ROXY/creatinine down to 1.1
Metabolic acidosis resolved
BP stable
Review of Systems:
No chest pain or shortness of breath
LLQ graft pain since admit -improving
diarrhea several times overnight
Labs
-
Labs:
WBC 5.9 10^3/uL (4.8-10.8) 06/30/24 06:48
RBC 3.57 10^6/uL (4.70-6.10) L 06/30/24 06:48
Hgb 11.1 g/dL (13.0-18.0) L 06/30/24 06:48
Hct 30.9 % (39.0-52.0) L 06/30/24 06:48
Plt Count 106 10^3/uL (130-400) L 06/30/24 06:48
Sodium 136 mmol/L (135-145) 06/30/24 06:48
Potassium 4.6 mmol/L (3.5-5.1) 06/30/24 06:48
Chloride 105 mmol/L (98-107) 06/30/24 06:48
Carbon Dioxide 25 mmol/L (22-30) 06/30/24 06:48
BUN 21 mg/dl (9-20) H 06/30/24 06:48
Creatinine 1.1 mg/dL (0.7-1.3) 06/30/24 06:48
eGFR > 60.00 06/30/24 06:48
Glucose 207 mg/dl (70-99) H 06/30/24 06:48
Calcium 8.6 mg/dl (8.4-10.2) 06/30/24 06:48
Albumin 2.9 g/dl (3.5-5.0) L 06/26/24 07:00
Physical Exam
-
Vital Signs:
Vital Signs
Temp Pulse Resp BP Pulse Ox
98.1 F 64 15 108/58 98
07/01/24 14:57 07/01/24 14:57 07/01/24 14:57 07/01/24 14:57 07/01/24 14:57
Cardiovascular:: Regular rate and rhythm
Respiratory:: Bilateral: CTA
Lung Excursion:: Normal
Abdomen:: Nontender and Soft (no graft tenderness noted)
Bowel Sounds:: Normal
Extremity Edema:: None: Bilateral:
Mejia Catheter: No
[2024-07-01] MEDS: REQUIP 0.5 MG PO (21:19)
[2024-07-01] MEDS: LR IV (21:53)
[2024-07-01 22:02] LABS: Glucose - Point of Care 335 mg/dl (70-99)
[2024-07-01] MEDS: LANTUS 0.12 UNITS SC (22:03)
[2024-07-01 23:02] VITALS: BP 104/57
[2024-07-02] MEDS: DILAUDID 0.25 MG IV ×3 (05:07→18:01)
[2024-07-02 07:48] LABS: Glucose - Point of Care 153 mg/dl (70-99)
[2024-07-02 07:58] VITALS: BP 103/62
[2024-07-02 08:04] LABS: Blood Urea Nitrogen 28 mg/dl (9-20); Calcium 8.4 mg/dl (8.4-10.2); Carbon Dioxide 28 mmol/L (22-30); Chloride 106 mmol/L (98-107); Estimated Creatinine Clearance 72 ml/min; Glucose 173 mg/dl (70-99); Potassium 5.2 mmol/L (3.5-5.1); Sodium 139 mmol/L (135-145); eGFR > 60.00
[2024-07-02] MEDS: NOVOLOG FLEXPEN-MODERATE RESISTANCE 1 UNITS SC ×2 (08:06→18:00)
[2024-07-02] MEDS: NOVOLOG FLEXPEN 3 UNITS SC ×3 (08:06→18:00)
[2024-07-02] MEDS: MYFORTIC DELAYED REL. 180 MG PO ×2 (08:07→20:41)
[2024-07-02] MEDS: NEURONTIN 100 MG PO ×2 (08:07→20:41)
[2024-07-02] MEDS: METAMUCIL, KONSYL 1 PACKET PO (08:07)
[2024-07-02] MEDS: ASPIR LOW (ENTERIC COATED) 81 MG PO (08:08)
[2024-07-02] MEDS: PROGRAF 3 MG PO ×2 (08:08→20:40)
--- NOTE | 2024-07-02 11:19 | CM ---
CM reviewed chart, patient seen bedside, reports he did call for appeal, spoke with [employer] sales representative from [facility] yesterday. Patient provided with DNOD form. Patient requesting to speak to Risk Management, provided with number. CM will continue to
follow for all discharge planning needs.
Plan; appeal in progress
[2024-07-02 11:56] LABS: Glucose - Point of Care 200 mg/dl (70-99)
[2024-07-02] MEDS: NOVOLOG FLEXPEN-MODERATE RESISTANCE 3 UNITS SC (12:04)
[2024-07-02] MEDS: OMNICEF 300 MG PO ×2 (12:06→20:41)
[2024-07-02] MEDS: LOKELMA 5 GRAM PO (12:07)
[2024-07-02 13:21] LABS: Urine Albumin 1+ (Neg - Trace); Urine Bilirubin Negative (Negative); Urine Character Clear (Clear); Urine Color Yellow; Urine Glucose 1+ (Negative); Urine Ketone Negative (Negative); Urine Leukocyte Negative (Negative); Urine Nitrite Negative (Negative); Urine Occult Blood 3+ (Negative); Urine Specific Gravity 1.015 (<1.030); Urine Urobilinogen Negative (Neg - 1+)
--- NOTE | 2024-07-02 13:28 | W.PN.HOSP.TC ---
Addendum entered and electronically signed by Luciano Day MD 07/02/24 15:22:
He is cleared for discharged but he is appealing the discharge.
-If discharge is upheld then will proceed with discharge to SNF.
Addendum entered and electronically signed by Luciano Day MD 07/02/24 15:14:
Acute on chronic diarrhea
Likely functional/IBS as unable to find clear etiology. Workup thus far negative which included C-scope biopsy negative for CMV colitis, C. difficile negative, Campylobacter Shigella Salmonella negative.
Tacrolimus can potentially cause diarrhea however levels are therapeutic therefore unlikely
Continue Metamucil
Refusing Imodium
Refusing/refused fecal management system
Outpatient GI follow-up with stool osmolar gap
Renal/liver transplant
Continue immunosuppressive agents with tacrolimus and mycophenolate
-Nephrology to bring up the possibility of holding mycophenolate however this would need to be discussed with his outpatient liver transplant team and is already on low-dose
UTI�new
Burning with urination
Started on Omnicef
CAD s/p PCI
Continue aspirin not on statin nor beta-jakub
Outpatient cardiology follow-up
Restless leg syndrome
Continue Ropinirole
Original Note:
Today's Communication/Plan
-
-Multiple conversation and attempts were made for discharge plan. The patient is medically cleared to be discharged and needed to have outpatient follow up. He refused to leave from the hospital and did appeal. manager [employer] is working with the
patient.
Assessment / Plan
Assessment / Plan
64 year old male has a PMH of prior liver/kidney transplant at [facility] in 2021 (on mycophenolate and tacrolimus for 2.5 years), hep C cirrhosis, hx of c-diff post transplant and a recent one 7 months ago ) hx of Esophageal varices,, CAD (with
stents), IDDM, DVT with IVF filter, BPH s/p TURP, and Right ORIF hip and hx of foot infection. He was admitted with 6 weeks duration of diarrhea which got worsen recently and and due feeling weak. At admission his lab results were significant for
elevated glucose to 297 and UA showed occult blood 4(+). His abdominal CT reported moderate hydro of transplanted kidney worsening from prior stenting, post liver transplant, portal HTN, splenomegaly, cyst and calculus of [place] kidney and Urinary
bladder trabeculation (question chronic outlet obstruction or neurogenic bladder).
Acute on chronic diarrhea
Hydronephrosis of transplanted kidney
ROXY
Coronary Artery Disease with stents
Left Kidney/Liver Transplant in 2021 for Cirrhosis secondary to Hepatitis C-at [facility] February 26, 2022, b/l 1.3
Diabetes Mellitus, Type II no history of diabetic neuropathy or retinopathy
Chronic back pain requiring chronic opioid dependence
DJD -C3-C4, C5-C6
Right hip ORIF surgery
Urine drug screen positive for fentanyl
Anemia
Thrombocytopenia
History of DVT with IVC filter
UTI?
#Acute on chronic watery diarrhea with unclear etiology
-Seen by GI-recommended continue Imodium and Lomotil as needed, fiber and supportive care-GI recommended follow up with hepatology team at OP setting
-Unclear etiology; differentials include malabsorptive process versus ADR of mycophenolate-
-Stool culture, O&P, C. diff, HIV, sigmoidoscopy with biopsy all negative- CMV and microscopic colitis excluded- recommended using Imodium as needed and daily Metamucil
-Patient is not complement taking Imodium as directed to address his diarrhea
-Fecal studies come back normal( Stool fat normal, stool split fat normal, stool pancreatic elastase normal, stool calprotectin pending)-can be followed at the outpatient setting
-Monitor bowel status, CBC, temperature
-OP follow-up with GI for stool osmolar gap to differentiate etiology of watery diarrhea
-will need to follow-up with hepatology for consideration of holding MMF-needs to be follow-up by his transplantation team
#Hydronephrosis of transplanted kidney
-Nephrology on board-continue tacrolimus-planning to discharge his transplant team about holding mycophenolate or not
-ROXY due to hypotensive episode-resolved with IVF
-Creatinine normal
-CT imaging here shows relatively stable degree of hydronephrosis
-Had episode of hypotension with creatinine up to 1.6, back to 1.1 with IVF
-Continue to trend BMP and encourage oral intake and use of Imodium
-Tacrolimus level 8.1, within the therapeutic range
#UTI?
-Patient reports having burning while urinating for the last 2 days
-UA with culture was ordered
-Started on Cefdinir 300 mg BID
#CAD s/p PCI
-Home medications include aspirin; not on beta-jakub or statin
-No signs of active coronary disease at this time
-No allergy to statin listed; will consider starting moderate intensity
#IDDM2
-Most recent A1c 6.6%; Home regimen includes Lantus and NovoLog
-No known history of microvascular complications
-Remains on home regimen with ISS and Accu-Cheks
-Blood glucose goal 140-180
#Chronic normocytic anemia
-Likely inflammatory anemia with chronic diarrhea, OLT, kidney transfer
-No signs or symptoms of bleeding while here, bowel movements nonbloody
-Trend CBC while here
#H/O cirrhosis s/p OLT
#Thrombocytopenia
-Previous cirrhosis secondary to viral hepatitis
-Home medications include MMF and tacrolimus
-Suspect thrombocytopenia related to previous portal hypertension
-No signs of bleeding at this time, CBC has been stable
-Continue to monitor CBC
#Chronic Right hip pain
-Hip X ray: No acute abnormality: Chronic healed intertrochanteric fracture of the right proximal femur with a dynamic hip screw in place.
-Continue gabapentin -dose can be adjusted
-PT/OT assessment
#Lumbosacral radiculopathy
-Patient states he was recently at [place] and had MRI there, received records with no MRI done
-Should have follow-up with outpatient team for consideration of TERESSA
-PT/OT following here
#H/O C. difficile colitis s/p FMT
DVT prophylaxis: S/p IVC filter, SQ hep
Code Status: Full Code
Disposition: SNF
Anticipated Discharge: Today
Subjective/Interval History
-
Date of Service: July 02, 2024
At 08.00 am: Patient was seen in his bed complaining from his ongoing watery diarrhea. He reports some abdominal discomfort and reports burning with his urine for last 2 days.
About 11.00 am: I saw the patient with Dr Day and he refused to be examined by him because of his discharge plan. He refused to talk and refused to be discharged.
Objective Data
-
Labs:
Laboratory Results
07/02/24
07:21
Sodium 139
Potassium 5.2 H
Chloride 106
Carbon Dioxide 28
BUN 28 H
Creatinine 1.1
Glucose 173 H
Calcium 8.4
Vital Signs:
Vital Signs
Temp Pulse Resp BP Pulse Ox
97.9 F 77 16 103/62 94
07/02/24 07:58 07/02/24 07:58 07/02/24 07:58 07/02/24 07:58 07/02/24 08:00
I&O
07/01/24 07/02/24 07/03/24
06:59 06:59 06:59
Intake Total 900 / 900 820 / 820
Output Total 1450 / 1450 1750 / 1750 450 / 450
Balance -550 / -550 -930 / -930 -450 / -450
Review of Systems
-
History Source: Patient
EENT: Reports No Symptoms Reported
Respiratory: Reports No Symptoms
Cardiac: Reports No Symptoms
Abdomen/GI: Reports Diarrhea
Genitourinary: Reports No Symptoms
Musculoskeletal: Reports No Symptoms
Skin: Reports No Symptoms
Neuro: Reports No Symptoms
Physical Exam
-
General: Well Developed, Well Nourished and Appears Chronically Ill
HEENT: Normocephalic and Atraumatic
Respiratory: Clear to Auscultation
Cardiac: Regular Rhythm and S1/S2
GI: Soft, Nontender and Nondistended
Musculoskeletal: No Clubbing, No Cyanosis and No Edema
Skin: Warm
Neuro: Awake, Alert, Oriented, AO x 3 and Nonfocal/Grossly Intact
Psych: Agitated and Anxious
[2024-07-02 13:32] LABS: Urine Bacteria Few (Negative); Urine Mucus Few; Urine Red Blood Cell 0-2 /HPF (0-2); Urine Squamous Cell 0-2 /LPF (Few); Urine White Cell 0-2 /HPF (0-5)
[2024-07-02 13:58] LABS: Hematocrit 31.7 % (39.0-52.0); Hemoglobin 11.2 g/dL (13.0-18.0); Mean Corp Hgb Conc. 35.3 g/dL (33.0-37.0); Mean Corpuscular Hgb 30.8 pg (27.0-31.0); Mean Corpuscular Volume 87.1 fL (80.0-94.0); Mean Platelet Volume 10.2 fL (7.4-10.4); Platelet Count 104 10^3/uL (130-400); Red Blood Cell Count 3.64 10^6/uL (4.70-6.10); Red Cell Dist. Width 13.9 % (11.5-14.5); White Blood Cell Count 6.2 10^3/uL (4.8-10.8)
[2024-07-02 14:14] LABS: ALT (SGPT) 12 U/L (0-50); AST (SGOT) 14 U/L (17-59); Albumin 3.1 g/dl (3.5-5.0); Alkaline Phosphatase 70 U/L (38-126); Blood Urea Nitrogen 27 mg/dl (9-20); Calcium 8.5 mg/dl (8.4-10.2); Carbon Dioxide 31 mmol/L (22-30); Chloride 105 mmol/L (98-107); Estimated Creatinine Clearance 66 ml/min; Glucose 134 mg/dl (70-99); Potassium 4.4 mmol/L (3.5-5.1); Sodium 139 mmol/L (135-145); Total Bilirubin 0.7 mg/dl (0.2-1.3); Total Protein 5.4 g/dl (6.3-8.2); eGFR > 60.00
[2024-07-02 15:05] VITALS: BP 93/53
[2024-07-02 15:34] VITALS: BP 114/68
--- NOTE | 2024-07-02 17:45 | W.PN.NEPH.PH ---
Today's Communication / Plan
-
follow labs
supportive care
Assessment/Plan
-
64yo with hx hep C cirrhosis with prior liver/kidney transplant at [facility] in 2021 on mycophenolate and tacrolimus, c-diff post transplant, hx Esophageal varices, prior stenting ? esophageal vs biliary, CAD with prior stenting, IDDM, DVT with
filter, BPH with prior TURP, ORIF hip, prior foot infection presents with diarrhea for 6 weeks. On admission noted with stable labs with elevated glucose 297, bun 30 with normal creat. Culture with neg c-diff, Giardia, crypto, and norovirus with
other cx pending. In review with patient he did go to [place] for eval and had 8 days stay. He recall stool studies completed and denies knowledge of any infection. He denies hx flex or colonoscopy during admission. No change in
Immunosuppression medication doses or other new medications. CT on admission with moderate hydro of transplanted kidney worsening from prior stenting, post liver transplant, portal HTN, splenomegaly, cyst and calculus of [place] kidney, ? bladder
outlet obstruction.
Impression
ROXY
Persistent diarrhea
Coronary Artery Disease with stents
Left Kidney/Liver Transplant in 2021 for Cirrhosis secondary to Hepatitis C-at [facility] February 26, 2022, b/l 1.3
Diabetes Mellitus, Type II no history of diabetic neuropathy or retinopathy
Chronic back pain requiring chronic opioid dependence
DJD -C3-C4, C5-C6
Urine drug screen positive for fentanyl
Anemia
Thrombocytopenia
DVT
Plan:
stable renal function cr 1.1-1.2
Tacrolimus 3.4 on June 21
Repeat tacrolimus level June 27 without any change = 8.1 (high normal we will continue current dose)
may need to consider holding mycophenolate, but this would need to be discussed with his liver transplant team/having said that he is on low-dose and this is an acute situation, left message with [facility] waiting for call back
c/o mild graft pain improving hydro on renal US, follow bladder scan and check UA not consistent with UTI
he would like to f.u with our practice after d/c
he feels may not be ready for d/c yet with ongoing diarrhea
-
-
Date of Service: July 02, 2024
CC / HPI / ROS
-
Chief Complaint:
Kidney transplant
History of Present Illness:
ROXY/creatinine at 1.2
Metabolic acidosis resolved
BP stable
Review of Systems:
No chest pain or shortness of breath
LLQ graft pain since admit -improving
diarrhea still , had 2 Bms today
Labs
-
Labs:
WBC 6.2 10^3/uL (4.8-10.8) 07/02/24 13:52
RBC 3.64 10^6/uL (4.70-6.10) L 07/02/24 13:52
Hgb 11.2 g/dL (13.0-18.0) L 07/02/24 13:52
Hct 31.7 % (39.0-52.0) L 07/02/24 13:52
Plt Count 104 10^3/uL (130-400) L 07/02/24 13:52
Sodium 139 mmol/L (135-145) 07/02/24 13:52
Potassium 4.4 mmol/L (3.5-5.1) 07/02/24 13:52
Chloride 105 mmol/L (98-107) 07/02/24 13:52
Carbon Dioxide 31 mmol/L (22-30) H 07/02/24 13:52
BUN 27 mg/dl (9-20) H 07/02/24 13:52
Creatinine 1.2 mg/dL (0.7-1.3) 07/02/24 13:52
eGFR > 60.00 07/02/24 13:52
Glucose 134 mg/dl (70-99) H 07/02/24 13:52
Calcium 8.5 mg/dl (8.4-10.2) 07/02/24 13:52
Albumin 3.1 g/dl (3.5-5.0) L 07/02/24 13:52
Physical Exam
-
Vital Signs:
Vital Signs
Temp Pulse Resp BP Pulse Ox
98.0 F 79 16 114/68 99
07/02/24 15:34 07/02/24 15:34 07/02/24 15:34 07/02/24 15:34 07/02/24 15:34
Cardiovascular:: Regular rate and rhythm
Respiratory:: Bilateral: CTA
Lung Excursion:: Normal
Abdomen:: Soft and Tender (mild LLQ)
Bowel Sounds:: Normal
Extremity Edema:: None: Bilateral:
Mejia Catheter: No
--- NOTE | 2024-07-02 17:56 | W.PN.UPDATE ---
Addendum entered and electronically signed by Luciano Day MD 07/02/24 18:23:
This conversation was witnessed by senior resident Aki Villalobos MD and bedside nurse Ken Hickman RN
Original Note:
Update Note
Progress Note Update
Was notified by nursing that he wanted to speak to a physician about his diet as he has requested a regular house diet.
Therefore I went to his bedside. I informed him that he will continue on a diabetic diet as he has diabetes with a A1c of 6.6 and sugars that ranged between 150 and 250. With an inpatient blood glucose goal of 140-180.
Additionally, he was started on a low potassium diet along with Lokelma (one time dose) this morning as his potassium was 5.2. Now it is 4.4.
Because I told him that I was not changing his diet to a regular house diet he had told me that he complained about me multiple times. Told me that I was a bad doctor. Told me that I was causing him harm by not changing his diet.
Part of the nurse has not reported diarrhea in the past 1 to 2 days nor seen diarrhea in the last 1 or 2 days.
I have reviewed with him as well that this is a chronic diarrhea. In terms of what has been completed for him is a colonoscopy with GI that was negative for CMV colitis, features of microscopic colitis are not identified and fragments of colonic
mucosa with no significant histopathologic change. Stool culture is negative for C. difficile, Cryptosporidium, Giardia, Shigella, Campylobacter, Salmonella/Shigella.
He reported to me that diarrhea has been ongoing for 8 weeks now. Informed him this is a chronic diarrhea which is defined per up to date increased stool frequency greater than 3 stools daily of at least 4 weeks duration. He should continue to use
the Metamucil and that he should take the Imodium, but refusing it. If the diarrhea continues to occur as infectious and inflammatory conditions have been ruled out. Stool fat negative. Calprotectin pending. Pancreatic elastase 266 which rules
out a pancreatic malabsorptive condition
He will need to see outpatient gastroenterology for any further/additional workup
I did order a B12 folate to rule out bacterial overgrowth as B12 should be low and folate would be high but this would be associated with bloating of which she does not have therefore makes this less likely
He ended up telling me that I should not even be seeing him he should be seen by a different provider. I informed him that will happen tomorrow he asked me how did I even become his provider.
I did impress on him that Medicare upheld his discharge and he will be discharged to a SNF once we have bed availability at [facility].
I started him on Omnicef this morning as he complained to the resident about dysuria in the setting of renal transplant.
He does not have an ROXY. He is continued on mycophenolate and tacrolimus.
I suspect there is a secondary gain here. As he calm down a little once I told him about being discharged to a SNF.
It is hard for me to confirm this especially as he reports that he has diarrhea but this has not been noticed by bedside nursing staff. It has been reported to me that he is homeless and lives in his truck.
[2024-07-02 18:06] LABS: Glucose - Point of Care 164 mg/dl (70-99)
--- NOTE | 2024-07-02 18:32 | PTCARENOTE ---
Addendum entered by Ken Hickman RN 07/02/24 18:34:
'Was notified by nursing that he wanted to speak to a physician about his diet as he has requested a regular house diet.
Therefore I went to his bedside. I informed him that he will continue on a diabetic diet as he has diabetes with a A1c of 6.6 and sugars that ranged between 150 and 250. With an inpatient blood glucose goal of 140-180.
Additionally, he was started on a low potassium diet along with Lokelma (one time dose) this morning as his potassium was 5.2. Now it is 4.4.
Because I told him that I was not changing his diet to a regular house diet he had told me that he complained about me multiple times. Told me that I was a bad doctor. Told me that I was causing him harm by not changing his diet.
Part of the nurse has not reported diarrhea in the past 1 to 2 days nor seen diarrhea in the last 1 or 2 days.
I have reviewed with him as well that this is a chronic diarrhea. In terms of what has been completed for him is a colonoscopy with GI that was negative for CMV colitis, features of microscopic colitis are not identified and fragments of colonic
mucosa with no significant histopathologic change. Stool culture is negative for C. difficile, Cryptosporidium, Giardia, Shigella, Campylobacter, Salmonella/Shigella.
He reported to me that diarrhea has been ongoing for 8 weeks now. Informed him this is a chronic diarrhea which is defined per up to date increased stool frequency greater than 3 stools daily of at least 4 weeks duration. He should continue to use
the Metamucil and that he should take the Imodium, but refusing it. If the diarrhea continues to occur as infectious and inflammatory conditions have been ruled out. Stool fat negative. Calprotectin pending. Pancreatic elastase 266 which rules out a
pancreatic malabsorptive condition
He will need to see outpatient gastroenterology for any further/additional workup
I did order a B12 folate to rule out bacterial overgrowth as B12 should be low and folate would be high but this would be associated with bloating of which she does not have therefore makes this less likely
He ended up telling me that I should not even be seeing him he should be seen by a different provider. I informed him that will happen tomorrow he asked me how did I even become his provider.
I did impress on him that Medicare upheld his discharge and he will be discharged to a SNF once we have bed availability at [facility].
I started him on Omnicef this morning as he complained to the resident about dysuria in the setting of renal transplant.
He does not have an ROXY. He is continued on mycophenolate and tacrolimus.
I suspect there is a secondary gain here. As he calm down a little once I told him about being discharged to a SNF.
It is hard for me to confirm this especially as he reports that he has diarrhea but this has not been noticed by bedside nursing staff. It has been reported to me that he is homeless and lives in his truck.' Written by Dr. Day
Original Note:
Please read the updated note by Dr. Day. It fully represents my occurrences with this pt from yesterday until today.
[2024-07-02 18:42] LABS: Calprotectin, Fecal 32 ug/g (<=49)
[2024-07-02] MEDS: REQUIP 0.5 MG PO (20:41)
[2024-07-02 21:54] LABS: Glucose - Point of Care 275 mg/dl (70-99)
[2024-07-02] MEDS: LANTUS 0.12 UNITS SC (22:05)
[2024-07-02 23:04] VITALS: BP 104/57
[2024-07-03] MEDS: DILAUDID 0.25 MG IV ×4 (00:06→18:39)
[2024-07-03 06:00] VITALS: BMI 23.4
[2024-07-03 07:10] VITALS: BP 120/74
[2024-07-03 07:15] LABS: Glucose - Point of Care 125 mg/dl (70-99)
[2024-07-03] MEDS: NOVOLOG FLEXPEN-MODERATE RESISTANCE SC ×2 (07:24→11:39)
--- NOTE | 2024-07-03 07:27 | W.PN.HOSP.TC ---
Today's Communication/Plan
-
See plan
Patient was very grateful and happy with my discussion with him today
Assessment / Plan
Assessment / Plan
Physical Exam
General: Appears Chronically Ill
HEENT: Normocephalic and Atraumatic
Respiratory: Clear to Auscultation Bilaterally
Cardiac: Regular Rate and Rhythm and S1/S2
GI: Soft, Nontender and Nondistended. Positive bowel sounds.
Musculoskeletal: No Cyanosis and No Edema
Skin: Warm. Dry.
Neuro: Awake, Alert, Oriented, AO x 3 and Nonfocal/Grossly Intact
Psych: Agitated and Anxious
Assessment/Plan
64 year old male has a PMH of prior liver/kidney transplant at [facility] in 2021 (on mycophenolate and tacrolimus for 2.5 years), hep C cirrhosis, hx of c-diff post transplant and a recent one 7 months ago ) hx of Esophageal varices,, CAD (with
stents), IDDM, DVT with IVF filter, BPH s/p TURP, and Right ORIF hip and hx of foot infection. He was admitted with 6 weeks duration of diarrhea which got worsen recently and and due feeling weak. At admission his lab results were significant for
elevated glucose to 297 and UA showed occult blood 4(+). His abdominal CT reported moderate hydro of transplanted kidney worsening from prior stenting, post liver transplant, portal HTN, splenomegaly, cyst and calculus of [place] kidney and Urinary
bladder trabeculation (question chronic outlet obstruction or neurogenic bladder).
Acute on chronic diarrhea
Hydronephrosis of transplanted kidney
ROXY
Coronary Artery Disease with stents
Left Kidney/Liver Transplant in 2021 for Cirrhosis secondary to Hepatitis C-at [facility] February 26, 2022, b/l 1.3
Diabetes Mellitus, Type II no history of diabetic neuropathy or retinopathy
Chronic back pain requiring chronic opioid dependence
DJD -C3-C4, C5-C6
Right hip ORIF surgery
Urine drug screen positive for fentanyl
Anemia
Thrombocytopenia
History of DVT with IVC filter
UTI?
#Acute on chronic watery diarrhea with unclear etiology
-Seen by GI-recommended continue Imodium and Lomotil as needed, fiber and supportive care-GI recommended follow up with hepatology team at OP setting
-Unclear etiology; differentials include malabsorptive process versus ADR of mycophenolate-likely functional/IBS as unable to find clear etiology. Workup thus far negative which included C-scope biopsy negative for CMV colitis,
C. difficile negative, Campylobacter Shigella Salmonella negative.
-Stool culture, O&P, C. diff, HIV, sigmoidoscopy with biopsy all negative- CMV and microscopic colitis excluded- recommended using Imodium as needed and daily Metamucil
-Patient has not been compliant taking Imodium as directed to address his diarrhea
-Fecal studies come back normal (Stool fat normal, stool split fat normal, stool pancreatic elastase normal, stool calprotectin normal)-can be followed at the outpatient setting
-Monitor bowel status, CBC, temperature
-OP follow-up with GI for stool osmolar gap to differentiate etiology of watery diarrhea
-will need to follow-up with hepatology for consideration of holding MMF-needs to be follow-up by his transplantation team
#Hydronephrosis of transplanted kidney
-Nephrology on board-continue tacrolimus-planning to discharge his transplant team about holding mycophenolate or not
-ROXY due to hypotensive episode-resolved with IVF
-Creatinine normal
-CT imaging here shows relatively stable degree of hydronephrosis
-Had episode of hypotension with creatinine up to 1.6, then improve with IVF
-Continue to trend BMP and encourage oral intake and use of Imodium
-Tacrolimus level 8.1, within the therapeutic range
#Concern for UTI/Patient was having dysuria
-Patient reports having burning while urinating for the last 2 days
-UA with occult blood and a few bacteria
-Started on Cefdinir 300 mg BID this hospitalization
#CAD s/p PCI
-Home medications include aspirin; not on beta-jakub or statin
-No signs of active coronary disease at this time
-No allergy to statin listed; will consider starting moderate intensity
#IDDM2
-Most recent A1c 6.6%; Home regimen includes Lantus and NovoLog
-No known history of microvascular complications
-Remains on home regimen with ISS and Accu-Cheks
-Blood glucose goal 140-180
-Per patient's strong request, placed him on a low potassium diet only, continue to monitor blood sugars to make sure no hyperglycemia
#Chronic normocytic anemia
-Likely inflammatory anemia with chronic diarrhea, OLT, kidney transfer
-No signs or symptoms of bleeding while here, bowel movements nonbloody
-Trend CBC while here
#H/O cirrhosis s/p OLT
#Thrombocytopenia
-Previous cirrhosis secondary to viral hepatitis
-Home medications include MMF and tacrolimus
-Suspect thrombocytopenia related to previous portal hypertension
-No signs of bleeding at this time, CBC has been stable
-Continue to monitor CBC
#Chronic Right hip pain
-Hip X ray: No acute abnormality: Chronic healed intertrochanteric fracture of the right proximal femur with a dynamic hip screw in place.
-Continue gabapentin -dose can be adjusted
-PT/OT assessment
#Lumbosacral radiculopathy
-Patient states he was recently at [place] and had MRI there, received records with no MRI done
-Should have follow-up with outpatient team for consideration of TERESSA
-PT/OT following here
#H/O C. difficile colitis s/p FMT
DVT prophylaxis: S/p IVC filter, SQ hep
Code Status: Full Code
Disposition: SNF. Awaiting on the determination from [employer]/Medicare, the decision has not been made yet still waiting to hear.
Anticipated Discharge: > 48 hours
Subjective/Interval History
-
Date of Service: July 03, 2024
Patient was seen and examined. He reported being concerned of whether his diarrhea will be fixed, no new complaints or symptoms since yesterday, he said he would like a low potassium regular diet, but not diabetic diet.
Objective Data
-
Labs:
Laboratory Results
07/03/24
06:00
WBC Pending
Hgb Pending
Hct Pending
Plt Count Pending
Sodium Pending
Potassium Pending
Chloride Pending
Carbon Dioxide Pending
BUN Pending
Creatinine Pending
Glucose Pending
Calcium Pending
Total Bilirubin Pending
AST Pending
ALT Pending
Alkaline Phosphatase Pending
Vital Signs:
Vital Signs
Temp Pulse Resp BP Pulse Ox
98.2 F 80 18 104/57 99
07/02/24 23:04 07/02/24 23:04 07/02/24 23:04 07/02/24 23:04 07/02/24 23:04
I&O
07/02/24 07/03/24 07/04/24
06:59 06:59 06:59
Intake Total 820 / 820 850 / 850
Output Total 1750 / 1750 1550 / 1550
Balance -930 / -930 -700 / -700
[2024-07-03 08:37] LABS: Hematocrit 31.8 % (39.0-52.0); Hemoglobin 11.2 g/dL (13.0-18.0); Mean Corp Hgb Conc. 35.2 g/dL (33.0-37.0); Mean Corpuscular Hgb 31.1 pg (27.0-31.0); Mean Corpuscular Volume 88.3 fL (80.0-94.0); Mean Platelet Volume 10.8 fL (7.4-10.4); Platelet Count 100 10^3/uL (130-400); Red Cell Dist. Width 13.7 % (11.5-14.5); White Blood Cell Count 5.6 10^3/uL (4.8-10.8)
[2024-07-03] MEDS: NOVOLOG FLEXPEN 3 UNITS SC ×3 (08:40→17:34)
[2024-07-03] MEDS: OMNICEF 300 MG PO ×2 (08:41→21:08)
[2024-07-03] MEDS: NEURONTIN 100 MG PO ×2 (08:41→21:07)
[2024-07-03] MEDS: MYFORTIC DELAYED REL. 180 MG PO ×2 (08:41→21:07)
[2024-07-03] MEDS: METAMUCIL, KONSYL 1 PACKET PO (08:41)
[2024-07-03] MEDS: PROGRAF 3 MG PO ×2 (08:41→21:07)
[2024-07-03] MEDS: ASPIR LOW (ENTERIC COATED) 81 MG PO (08:41)
[2024-07-03 09:14] LABS: ALT (SGPT) 12 U/L (0-50); AST (SGOT) 14 U/L (17-59); Albumin 3.3 g/dl (3.5-5.0); Alkaline Phosphatase 71 U/L (38-126); Blood Urea Nitrogen 33 mg/dl (9-20); Calcium 8.6 mg/dl (8.4-10.2); Carbon Dioxide 29 mmol/L (22-30); Chloride 107 mmol/L (98-107); Estimated Creatinine Clearance 66 ml/min; Glucose 109 mg/dl (70-99); Potassium 4.7 mmol/L (3.5-5.1); Sodium 141 mmol/L (135-145); Total Bilirubin 0.8 mg/dl (0.2-1.3); Total Protein 5.4 g/dl (6.3-8.2); eGFR > 60.00
--- NOTE | 2024-07-03 09:56 | W.PN.UPDATE ---
Update Note
Progress Note Update
message sent to GI office to arrange GI follow up.
[2024-07-03 10:13] LABS: Folate 9.3 ng/ml (2.76-20); Vitamin B12 419 pg/ml (239-931)
--- NOTE | 2024-07-03 11:15 | CM ---
CM reviewed chart, reviewed with Nurse, Hospitalist, patient appeal pending to [facility], no determination made as of yet. Admissions at [facility] updated. CM will continue to follow for all discharge planning needs.
Plan; appeal in progress, awaiting determination.
[2024-07-03 11:23] LABS: Glucose - Point of Care 145 mg/dl (70-99)
--- NOTE | 2024-07-03 13:21 | W.PN.NEPH.PH ---
Today's Communication / Plan
-
Attempt to discuss with transplant team
Assessment/Plan
-
64yo with hx hep C cirrhosis with prior liver/kidney transplant at [facility] in 2021 on mycophenolate and tacrolimus, c-diff post transplant, hx Esophageal varices, prior stenting ? esophageal vs biliary, CAD with prior stenting, IDDM, DVT with
filter, BPH with prior TURP, ORIF hip, prior foot infection presents with diarrhea for 6 weeks. On admission noted with stable labs with elevated glucose 297, bun 30 with normal creat. Culture with neg c-diff, Giardia, crypto, and norovirus with
other cx pending. In review with patient he did go to [place] for eval and had 8 days stay. He recall stool studies completed and denies knowledge of any infection. He denies hx flex or colonoscopy during admission. No change in
Immunosuppression medication doses or other new medications. CT on admission with moderate hydro of transplanted kidney worsening from prior stenting, post liver transplant, portal HTN, splenomegaly, cyst and calculus of [place] kidney, ? bladder
outlet obstruction.
Impression
ROXY
Persistent diarrhea
Coronary Artery Disease with stents
Left Kidney/Liver Transplant in 2021 for Cirrhosis secondary to Hepatitis C-at [facility] February 26, 2022, b/l 1.3
Diabetes Mellitus, Type II no history of diabetic neuropathy or retinopathy
Chronic back pain requiring chronic opioid dependence
DJD -C3-C4, C5-C6
Urine drug screen positive for fentanyl
Anemia
Thrombocytopenia
DVT
Plan:
stable renal function cr 1.1-1.2
Tacrolimus 3.4 on June 21
Repeat tacrolimus level June 27 without any change = 8.1 (high normal we will continue current dose)
may need to consider holding mycophenolate, but this would need to be discussed with his liver transplant team/having said that he is on low-dose and this is an acute situation, left message with [facility] waiting for call back
c/o mild graft pain improving hydro on renal US, follow bladder scan and check UA not consistent with UTI
he would like to f.u with our practice after d/c
he feels may not be ready for d/c yet with ongoing diarrhea
And no changes made today will attempt again to discuss with transplant team
-
-
Date of Service: July 03, 2024
CC / HPI / ROS
-
Chief Complaint:
Kidney transplant
History of Present Illness:
ROXY/creatinine at 1.2
Metabolic acidosis resolved
BP stable
Review of Systems:
No chest pain or shortness of breath
LLQ graft pain since admit -improving
diarrhea still , had 2 Bms today
Labs
-
Labs:
WBC 5.6 10^3/uL (4.8-10.8) 07/03/24 08:10
RBC 3.60 10^6/uL (4.70-6.10) L 07/03/24 08:10
Hgb 11.2 g/dL (13.0-18.0) L 07/03/24 08:10
Hct 31.8 % (39.0-52.0) L 07/03/24 08:10
Plt Count 100 10^3/uL (130-400) L 07/03/24 08:10
Sodium 141 mmol/L (135-145) 07/03/24 08:10
Potassium 4.7 mmol/L (3.5-5.1) 07/03/24 08:10
Chloride 107 mmol/L (98-107) 07/03/24 08:10
Carbon Dioxide 29 mmol/L (22-30) 07/03/24 08:10
BUN 33 mg/dl (9-20) H 07/03/24 08:10
Creatinine 1.2 mg/dL (0.7-1.3) 07/03/24 08:10
eGFR > 60.00 07/03/24 08:10
Glucose 109 mg/dl (70-99) H 07/03/24 08:10
Calcium 8.6 mg/dl (8.4-10.2) 07/03/24 08:10
Albumin 3.3 g/dl (3.5-5.0) L 07/03/24 08:10
Physical Exam
-
Vital Signs:
Vital Signs
Temp Pulse Resp BP Pulse Ox
97.7 F 79 18 120/74 98
07/03/24 07:10 07/03/24 07:10 07/03/24 07:10 07/03/24 07:10 07/03/24 09:57
Cardiovascular:: Regular rate and rhythm
Respiratory:: Bilateral: CTA
Lung Excursion:: Normal
Abdomen:: Soft and Tender (mild LLQ)
Bowel Sounds:: Normal
Extremity Edema:: None: Bilateral:
Mejia Catheter: No
[2024-07-03 15:44] VITALS: BP 125/62
[2024-07-03 17:03] LABS: Glucose - Point of Care 248 mg/dl (70-99)
[2024-07-03] MEDS: NOVOLOG FLEXPEN-MODERATE RESISTANCE 3 UNITS SC (17:35)
[2024-07-03 22:17] LABS: Glucose - Point of Care 362 mg/dl (70-99)
[2024-07-03] MEDS: LANTUS 0.12 UNITS SC (22:28)
[2024-07-03] MEDS: REQUIP 0.5 MG PO (22:29)
[2024-07-04 00:01] VITALS: BP 104/68
[2024-07-04] MEDS: DILAUDID 0.25 MG IV ×4 (00:27→18:01)
[2024-07-04 05:23] VITALS: BMI 24.1
[2024-07-04 06:00] VITALS: BMI 24.1
[2024-07-04 07:19] LABS: Glucose - Point of Care 251 mg/dl (70-99)
[2024-07-04] MEDS: NOVOLOG FLEXPEN-MODERATE RESISTANCE 5 UNITS SC (07:36)
[2024-07-04] MEDS: NOVOLOG FLEXPEN 3 UNITS SC ×3 (07:36→17:19)
[2024-07-04] MEDS: ASPIR LOW (ENTERIC COATED) 81 MG PO (07:37)
[2024-07-04] MEDS: MYFORTIC DELAYED REL. 180 MG PO ×2 (07:38→20:26)
[2024-07-04] MEDS: NEURONTIN 100 MG PO ×2 (07:38→20:26)
[2024-07-04] MEDS: METAMUCIL, KONSYL 1 PACKET PO (07:38)
[2024-07-04] MEDS: PROGRAF 3 MG PO ×2 (07:45→20:26)
[2024-07-04] MEDS: OMNICEF 300 MG PO ×2 (07:45→20:26)
[2024-07-04 08:03] VITALS: BP 114/90
--- NOTE | 2024-07-04 08:19 | W.PN.HOSP.TC ---
Today's Communication/Plan
-
Patient is in a good mood and happy with care, and understands long-term monitoring and management plan regarding his diarrhea
See plan
Awaiting [facility] Decision
Assessment / Plan
Assessment / Plan
Physical Exam
General: Appears Chronically Ill
HEENT: Normocephalic and Atraumatic
Respiratory: Clear to Auscultation Bilaterally
Cardiac: Regular Rate and Rhythm and S1/S2
GI: Soft, Nontender and Nondistended. Positive bowel sounds.
Musculoskeletal: No Cyanosis and No Edema
Skin: Warm. Dry.
Neuro: Awake, Alert, Oriented, AO x 3 and Nonfocal/Grossly Intact
Psych: Agitated and Anxious
Assessment/Plan
64 year old male has a PMH of prior liver/kidney transplant at [facility] in 2021 (on mycophenolate and tacrolimus for 2.5 years), hep C cirrhosis, hx of c-diff post transplant and a recent one 7 months ago ) hx of Esophageal varices,, CAD (with
stents), IDDM, DVT with IVF filter, BPH s/p TURP, and Right ORIF hip and hx of foot infection. He was admitted with 6 weeks duration of diarrhea which got worsen recently and and due feeling weak. At admission his lab results were significant for
elevated glucose to 297 and UA showed occult blood 4(+). His abdominal CT reported moderate hydro of transplanted kidney worsening from prior stenting, post liver transplant, portal HTN, splenomegaly, cyst and calculus of [place] kidney and Urinary
bladder trabeculation (question chronic outlet obstruction or neurogenic bladder).
Acute on chronic diarrhea
Hydronephrosis of transplanted kidney
ROXY
Coronary Artery Disease with stents
Left Kidney/Liver Transplant in 2021 for Cirrhosis secondary to Hepatitis C-at [facility] February 26, 2022, b/l 1.3
Diabetes Mellitus, Type II no history of diabetic neuropathy or retinopathy
Chronic back pain requiring chronic opioid dependence
DJD -C3-C4, C5-C6
Right hip ORIF surgery
Urine drug screen positive for fentanyl
Anemia
Thrombocytopenia
History of DVT with IVC filter
UTI?
#Acute on chronic watery diarrhea with unclear etiology
-Seen by GI-recommended continue Imodium and Lomotil as needed, fiber and supportive care-GI recommended follow up with hepatology team at OP setting
-Unclear etiology; differentials include malabsorptive process versus ADR of mycophenolate-likely functional/IBS as unable to find clear etiology. Workup thus far negative which included C-scope biopsy negative for CMV colitis,
C. difficile negative, Campylobacter Shigella Salmonella negative.
-Stool culture, O&P, C. diff, HIV, sigmoidoscopy with biopsy all negative- CMV and microscopic colitis excluded- recommended using Imodium as needed and daily Metamucil
-Patient is now starting to be compliant taking Imodium as directed to address his diarrhea
-Fecal studies come back normal (Stool fat normal, stool split fat normal, stool pancreatic elastase normal, stool calprotectin normal)-can be followed at the outpatient setting
-Monitor bowel status, CBC, temperature
-OP follow-up with GI for stool osmolar gap to differentiate etiology of watery diarrhea
-will need to follow-up with hepatology for consideration of holding MMF-needs to be follow-up by his transplantation team
#Hydronephrosis of transplanted kidney
-Nephrology on board-continue tacrolimus-patient's transplant team will have to figure out about holding mycophenolate or not
-ROXY due to hypotensive episode-resolved with IVF
-Creatinine normal
-CT imaging here shows relatively stable degree of hydronephrosis
-Had episode of hypotension with creatinine up to 1.6, then improve with IVF
-Continue to trend BMP and encourage oral intake and use of Imodium
-Tacrolimus level 8.1, within the therapeutic range
#Concern for UTI/Patient was having dysuria
-Patient recently this hospitalization reported having burning while urinating
-UA with occult blood and a few bacteria
-Started on Cefdinir 300 mg BID this hospitalization
#CAD s/p PCI
-Home medications include aspirin; not on beta-jakub or statin
-No signs of active coronary disease at this time
-No allergy to statin listed; will consider starting moderate intensity
#IDDM2
-Most recent A1c 6.6%; Home regimen includes Lantus and NovoLog
-No known history of microvascular complications
-Remains on home regimen with ISS and Accu-Cheks
-Blood glucose goal 140-180
-Per patient's strong request/demands, placed him on a low potassium diet only, continue to monitor blood sugars and treat hyperglycemia with Insulin. Patient is aware that non-carb controlled or non-diabetic diet can cause him to have
hyperglycemia, but he
still wants a regular (but only low potassium) diet.
#Chronic normocytic anemia
-Likely inflammatory anemia with chronic diarrhea, OLT, kidney transfer
-No signs or symptoms of bleeding while here, bowel movements nonbloody
-Trend CBC while here
#History of cirrhosis s/p OLT
#Thrombocytopenia
-Previous cirrhosis secondary to viral hepatitis
-Home medications include MMF and tacrolimus
-Suspect thrombocytopenia related to previous portal hypertension
-No signs of bleeding at this time, CBC has been stable
-Continue to monitor CBC
#Chronic Right hip pain
-Hip X ray: No acute abnormality: Chronic healed intertrochanteric fracture of the right proximal femur with a dynamic hip screw in place.
-Continue gabapentin -dose can be adjusted
-PT/OT assessment
#Lumbosacral radiculopathy
-Patient states he was recently at [place] and had MRI there, received records with no MRI done
-Should have follow-up with outpatient team for consideration of TERESSA
-PT/OT following here
#History of C. difficile colitis s/p FMT
DVT prophylaxis: S/p IVC filter, SQ hep
Code Status: Full Code
Disposition: SNF. Awaiting on the determination from [facility], the decision has not been made yet still waiting to hear.
Anticipated Discharge: > 48 hours
Subjective/Interval History
-
Date of Service: July 04, 2024
Patient was seen and examined. No new symptoms or complaints, says he is still having diarrhea.
Objective Data
-
Labs:
Laboratory Results
07/04/24
07:19
Sodium Pending
Potassium Pending
Chloride Pending
Carbon Dioxide Pending
BUN Pending
Creatinine Pending
Glucose Pending
Calcium Pending
Vital Signs:
Vital Signs
Temp Pulse Resp BP Pulse Ox
98.1 F 80 18 114/90 99
07/04/24 08:03 07/04/24 08:03 07/04/24 08:03 07/04/24 08:03 07/04/24 08:03
I&O
07/03/24 07/04/24 07/05/24
06:59 06:59 06:59
Intake Total 850 / 850 960 / 960 480 / 480
Output Total 1550 / 1550 1825 / 1825
Balance -700 / -700 -865 / -865 480 / 480
[2024-07-04 08:43] LABS: Blood Urea Nitrogen 36 mg/dl (9-20); Calcium 8.1 mg/dl (8.4-10.2); Carbon Dioxide 25 mmol/L (22-30); Chloride 108 mmol/L (98-107); Estimated Creatinine Clearance 66 ml/min; Glucose 242 mg/dl (70-99); Potassium 4.6 mmol/L (3.5-5.1); Sodium 139 mmol/L (135-145); eGFR > 60.00
--- NOTE | 2024-07-04 08:49 | CM ---
Chart reviewed and still waiting on determination from [facility], plan is for patient to return to [facility].
[facility]
Report # [id number] or [phone]
--- NOTE | 2024-07-04 09:22 | W.PN.UPDATE ---
Update Note
Progress Note Update
Pt scheduled GI follow up 08/14 with [facility] at 11:30am-- office spoke with pt and added to d/c
[2024-07-04 11:16] LABS: Glucose - Point of Care 87 mg/dl (70-99)
[2024-07-04] MEDS: NOVOLOG FLEXPEN-MODERATE RESISTANCE SC (11:46)
[2024-07-04] MEDS: IMODIUM 2 MG PO (12:20)
[2024-07-04 15:43] VITALS: BP 115/65
--- NOTE | 2024-07-04 15:44 | W.PN.NEPH.PH ---
Today's Communication / Plan
-
Continue Imodium
Will defer to outpatient transplant team upon discharge for any changes in medication. Multiple attempts were made without any success for response
Assessment/Plan
-
64yo with hx hep C cirrhosis with prior liver/kidney transplant at [facility] in 2021 on mycophenolate and tacrolimus, c-diff post transplant, hx Esophageal varices, prior stenting ? esophageal vs biliary, CAD with prior stenting, IDDM, DVT with
filter, BPH with prior TURP, ORIF hip, prior foot infection presents with diarrhea for 6 weeks. On admission noted with stable labs with elevated glucose 297, bun 30 with normal creat. Culture with neg c-diff, Giardia, crypto, and norovirus with
other cx pending. In review with patient he did go to [place] for eval and had 8 days stay. He recall stool studies completed and denies knowledge of any infection. He denies hx flex or colonoscopy during admission. No change in
Immunosuppression medication doses or other new medications. CT on admission with moderate hydro of transplanted kidney worsening from prior stenting, post liver transplant, portal HTN, splenomegaly, cyst and calculus of [place] kidney, ? bladder
outlet obstruction.
Impression
ROXY
Persistent diarrhea
Coronary Artery Disease with stents
Left Kidney/Liver Transplant in 2021 for Cirrhosis secondary to Hepatitis C-at [facility] February 26, 2022, b/l 1.3
Diabetes Mellitus, Type II no history of diabetic neuropathy or retinopathy
Chronic back pain requiring chronic opioid dependence
DJD -C3-C4, C5-C6
Urine drug screen positive for fentanyl
Anemia
Thrombocytopenia
DVT
Plan:
stable renal function cr 1.1-1.2
Tacrolimus 3.4 on June 21
Repeat tacrolimus level June 27 without any change = 8.1 (high normal we will continue current dose)
may need to consider holding mycophenolate, but this would need to be discussed with his liver transplant team/having said that he is on low-dose and this is an acute situation, left message with [facility] waiting for call back
c/o mild graft pain improving hydro on renal US, follow bladder scan and check UA not consistent with UTI
he would like to f.u with our practice after d/c
he feels may not be ready for d/c yet with ongoing diarrhea
And no changes made today/3 attempts were made by our department to contact [facility] without any success.
He is compliant with his Imodium and now.
-
-
Date of Service: July 04, 2024
CC / HPI / ROS
-
Chief Complaint:
Kidney transplant
History of Present Illness:
ROXY/creatinine at 1.2
Metabolic acidosis resolved
BP stable
Review of Systems:
No chest pain or shortness of breath
LLQ graft pain since admit -improving
diarrhea still , had 2 Bms today
Labs
-
Labs:
WBC 5.6 10^3/uL (4.8-10.8) 07/03/24 08:10
RBC 3.60 10^6/uL (4.70-6.10) L 07/03/24 08:10
Hgb 11.2 g/dL (13.0-18.0) L 07/03/24 08:10
Hct 31.8 % (39.0-52.0) L 07/03/24 08:10
Plt Count 100 10^3/uL (130-400) L 07/03/24 08:10
Sodium 139 mmol/L (135-145) 07/04/24 07:19
Potassium 4.6 mmol/L (3.5-5.1) 07/04/24 07:19
Chloride 108 mmol/L (98-107) H 07/04/24 07:19
Carbon Dioxide 25 mmol/L (22-30) 07/04/24 07:19
BUN 36 mg/dl (9-20) H 07/04/24 07:19
Creatinine 1.2 mg/dL (0.7-1.3) 07/04/24 07:19
eGFR > 60.00 07/04/24 07:19
Glucose 242 mg/dl (70-99) H 07/04/24 07:19
Calcium 8.1 mg/dl (8.4-10.2) L 07/04/24 07:19
Albumin 3.3 g/dl (3.5-5.0) L 07/03/24 08:10
Physical Exam
-
Vital Signs:
Vital Signs
Temp Pulse Resp BP Pulse Ox
98.3 F 79 18 115/65 100
07/04/24 15:43 07/04/24 15:43 07/04/24 15:43 07/04/24 15:43 07/04/24 15:43
Cardiovascular:: Regular rate and rhythm
Respiratory:: Bilateral: CTA
Lung Excursion:: Normal
Abdomen:: Soft and Tender (mild LLQ)
Bowel Sounds:: Normal
Extremity Edema:: None: Bilateral:
Mejia Catheter: No
[2024-07-04 17:00] LABS: Glucose - Point of Care 247 mg/dl (70-99)
[2024-07-04] MEDS: NOVOLOG FLEXPEN-MODERATE RESISTANCE 3 UNITS SC (17:19)
[2024-07-04 21:20] LABS: Glucose - Point of Care 293 mg/dl (70-99)
[2024-07-04] MEDS: REQUIP 0.5 MG PO (21:54)
[2024-07-04] MEDS: LANTUS 0.12 UNITS SC (21:54)
[2024-07-04 23:26] VITALS: BP 127/71
[2024-07-05] MEDS: DILAUDID 0.25 MG IV ×3 (00:07→12:29)
[2024-07-05 06:00] VITALS: BMI 24.4
[2024-07-05 07:00] VITALS: BP 106/59
--- NOTE | 2024-07-05 07:25 | W.PN.HOSP.TC ---
Today's Communication/Plan
-
Discharge today
Assessment / Plan
Assessment / Plan
Physical Exam
General: Appears Chronically Ill
HEENT: Normocephalic and Atraumatic
Respiratory: Clear to Auscultation Bilaterally
Cardiac: Regular Rate and Rhythm and S1/S2
GI: Soft, Nontender and Nondistended. Positive bowel sounds.
Musculoskeletal: No Cyanosis and No Edema
Skin: Warm. Dry.
Neuro: Awake, Alert, Oriented, AO x 3 and Nonfocal/Grossly Intact
Psych: Agitated and Anxious
Assessment/Plan
64 year old male has a PMH of prior liver/kidney transplant at [facility] in 2021 (on mycophenolate and tacrolimus for 2.5 years), hep C cirrhosis, hx of c-diff post transplant and a recent one 7 months ago ) hx of Esophageal varices,, CAD (with
stents), IDDM, DVT with IVF filter, BPH s/p TURP, and Right ORIF hip and hx of foot infection. He was admitted with 6 weeks duration of diarrhea which got worsen recently and and due feeling weak. At admission his lab results were significant for
elevated glucose to 297 and UA showed occult blood 4(+). His abdominal CT reported moderate hydro of transplanted kidney worsening from prior stenting, post liver transplant, portal HTN, splenomegaly, cyst and calculus of [place] kidney and Urinary
bladder trabeculation (question chronic outlet obstruction or neurogenic bladder).
Acute on chronic diarrhea
Hydronephrosis of transplanted kidney
ROXY
Coronary Artery Disease with stents
Left Kidney/Liver Transplant in 2021 for Cirrhosis secondary to Hepatitis C-at [facility] February 26, 2022, b/l 1.3
Diabetes Mellitus, Type II no history of diabetic neuropathy or retinopathy
Chronic back pain requiring chronic opioid dependence
DJD -C3-C4, C5-C6
Right hip ORIF surgery
Urine drug screen positive for fentanyl
Anemia
Thrombocytopenia
History of DVT with IVC filter
UTI?
#Acute on chronic watery diarrhea with unclear etiology
-Seen by GI-recommended continue Imodium and Lomotil as needed, fiber and supportive care-GI recommended follow up with hepatology team at OP setting
-Unclear etiology; differentials include malabsorptive process versus ADR of mycophenolate-likely functional/IBS as unable to find clear etiology. Workup thus far negative which included C-scope biopsy negative for CMV colitis,
C. difficile negative, Campylobacter Shigella Salmonella negative.
-Stool culture, O&P, C. diff, HIV, sigmoidoscopy with biopsy all negative- CMV and microscopic colitis excluded- recommended using Imodium as needed and daily Metamucil
-Patient is now starting to be compliant taking Imodium as directed to address his diarrhea
-Fecal studies come back normal (Stool fat normal, stool split fat normal, stool pancreatic elastase normal, stool calprotectin normal)-can be followed at the outpatient setting
-Monitor bowel status, CBC, temperature
-OP follow-up with GI for stool osmolar gap to differentiate etiology of watery diarrhea
-will need to follow-up with hepatology for consideration of holding MMF-needs to be follow-up by his transplantation team
-Scheduled GI follow up 08/14/24 with [facility] at 11:30am
#Hydronephrosis of transplanted kidney
-Nephrology on board-continue tacrolimus-patient's transplant team will have to figure out about holding mycophenolate or not
-ROXY due to hypotensive episode-resolved with IVF
-Creatinine normal
-CT imaging here shows relatively stable degree of hydronephrosis
-Had episode of hypotension with creatinine up to 1.6, then improve with IVF
-Continue to trend BMP and encourage oral intake and use of Imodium
-Tacrolimus level 8.1, within the therapeutic range
-[facility] outpatient follow-up
-Check CBC, CMP and Magnesium outpatient
#Concern for UTI/Patient was having dysuria
-Patient recently this hospitalization reported having burning while urinating
-UA with occult blood and a few bacteria
-Started on Cefdinir 300 mg BID this hospitalization --> 3 more doses on discharge
#CAD s/p PCI
-Home medications include aspirin; not on beta-jakub or statin
-No signs of active coronary disease at this time
-No allergy to statin listed; will consider starting moderate intensity
#IDDM2
-Most recent A1c 6.6%; Home regimen includes Lantus and NovoLog
-No known history of microvascular complications
-Remains on home regimen with ISS and Accu-Cheks
-Blood glucose goal 140-180
-Per patient's strong request/demands, placed him on a low potassium diet only, continue to monitor blood sugars and treat hyperglycemia with Insulin. Patient is aware that non-carb controlled or non-diabetic diet can cause him to have
hyperglycemia, but he
still wants a regular (but only low potassium) diet.
-On discharge, recommendation will be low potassium, carb-controlled diet
#Chronic normocytic anemia
-Likely inflammatory anemia with chronic diarrhea, OLT, kidney transfer
-No signs or symptoms of bleeding while here, bowel movements nonbloody
-Trend CBC while here
#History of cirrhosis s/p OLT
#Thrombocytopenia
-Previous cirrhosis secondary to viral hepatitis
-Home medications include MMF and tacrolimus
-Suspect thrombocytopenia related to previous portal hypertension
-No signs of bleeding at this time, CBC has been stable
-Continue to monitor CBC
#Chronic Right hip pain
-Hip X ray: No acute abnormality: Chronic healed intertrochanteric fracture of the right proximal femur with a dynamic hip screw in place.
-Continue gabapentin -dose can be adjusted
-PT/OT assessment
#Lumbosacral radiculopathy
-Patient states he was recently at [place] and had MRI there, received records with no MRI done
-Should have follow-up with outpatient team for consideration of TERESSA
-PT/OT following here
#History of C. difficile colitis s/p FMT
DVT prophylaxis: S/p IVC filter, SQ hep
Code Status: Full Code
I spoke to patient multiple times today, and explained to him that he can be discharged today with outpatient follow-up. He agreed to being discharged today. He expressed his gratefulness and was very happy with my care.
More than 30 minutes spent in discharge including
Final examination of the patient
Summarizing hospital stay
Instructions for continuing care to all relevant caregivers
Preparation of discharge records, prescriptions, and referral forms
Total time spent (in minutes): 55
Anticipated Discharge: Today
Subjective/Interval History
-
Date of Service: July 05, 2024
Patient was seen and examined. He reported continued on and off diarrhea.
Objective Data
-
Vital Signs:
Vital Signs
Temp Pulse Resp BP Pulse Ox
97.7 F 74 18 127/71 100
07/04/24 23:26 07/04/24 23:26 07/04/24 23:26 07/04/24 23:26 07/04/24 23:26
I&O
07/04/24 07/05/24 07/06/24
06:59 06:59 06:59
Intake Total 960 / 960 2159
Output Total 1825 / 1825
Balance -865 / -865 2159
[2024-07-05 07:35] LABS: Glucose - Point of Care 102 mg/dl (70-99)
[2024-07-05] MEDS: ASPIR LOW (ENTERIC COATED) 81 MG PO (07:35)
[2024-07-05] MEDS: PROGRAF 3 MG PO (07:35)
[2024-07-05] MEDS: MYFORTIC DELAYED REL. 180 MG PO (07:36)
[2024-07-05] MEDS: OMNICEF 300 MG PO (07:36)
[2024-07-05] MEDS: METAMUCIL, KONSYL 1 PACKET PO (07:36)
[2024-07-05] MEDS: NEURONTIN 100 MG PO (07:37)
[2024-07-05] MEDS: NOVOLOG FLEXPEN-MODERATE RESISTANCE SC (07:37)
[2024-07-05] MEDS: NOVOLOG FLEXPEN 3 UNITS SC ×2 (07:37→12:30)
[2024-07-05 11:00] VITALS: BP 130/69
[2024-07-05 12:24] LABS: Glucose - Point of Care 175 mg/dl (70-99)
[2024-07-05] MEDS: NOVOLOG FLEXPEN-MODERATE RESISTANCE 1 UNITS SC (12:30)
--- NOTE | 2024-07-05 14:10 | CM ---
Addendum entered by Georgiana Salcedo 07/05/24 16:21:
Patient scheduled for Lyft ride, patients cell phone provided for when ride is here.
Original Note:
CM reviewed chart, patient seen bedside with CM Director, discussed patient is medically stable for discharge, [facility] can offer patient a bed, hospital can assist with transportation to patients truck if patient does not want to
discharge to SNF. Patient wishes to return to truck, will provide Lyft ride, patient confirmed cell phone [phone], reports truck is at [facility] [address]. CM will continue to follow for all discharge planning needs.
Plan; patient refusing SNF, will provide Lyft ride to truck
[2024-07-05 15:00] VITALS: BP 127/73
--- NOTE | 2024-07-05 15:15 | W.DCSUMMARY ---
Discharge Summary
Discharge Data
Date of Admission: 06/21/24
Date of Discharge: 07/05/24
Total time spent discharging patient (in min): 33
-
Pending Results: No
Hospital Course
64 y/o male patient who was admitted with diarrhea for the prior ~6 weeks, noted to be worsening at the time of admission. CT imaging was done showing moderate hydronephrosis of transplant kidney and portal hypertension.
Gastroenterology was consulted. Colonoscopy was done and was negative for CMV colitis, features of microscopic colitis are not identified and fragments of colonic mucosa with no significant histopathologic change as per pathologist's report. Stool
culture was negative for C. difficile, Cryptosporidium, Giardia, Shigella, Campylobacter and Salmonella/Shigella. It was explained to the patient that he should continue to use Metamucil and that he should take Imodium if the diarrhea continues to
occur as infectious and inflammatory conditions have been ruled out. Patient was not always compliant with the Imodium in the hospital. Stool fat was negative. Calprotectin level was normal. Pancreatic elastase level was 266 which ruled out a
pancreatic malabsorptive condition. Vitamin B12 and Folate levels were normal. His diarrhea could also be related to his Mycophenolate medication which he has been on for 2.5 years. Nephrology recommended to follow-up with his transplant specialist
outpatient. Patient was advised to follow-up with gastroenterology outpatient.
Nephrology was consulted for acute kidney injury in the setting of patient's kidney transplant. followed the patient and his creatinine level came back normal to 1.1 after given IV fluids. Patient got a kidney ultrasound which showed, 'Mild
hydronephrosis of the left lower quadrant renal transplant, improved from prior'. His tacrolimus level was checked and came back in the high part of normal range. He was given intravenous fluids, and his acute kidney injury resolved.
It was explained to the patient multiple times that he was stable for discharge. He refused to leave and appealed his discharge, but at the end the discharge was upheld, and patient was discharged. Patient demanded a low potassium but otherwise
regular diet, he understood the risks of not being on a Diabetic Diet. He was stable for discharge.
Discharge Plan
-
Patient Disposition: Home (Routine Discharge)
Discharge Diagnosis/Procedures: Watery diarrhea of unknown
Prerenal acute kidney injury
Hydronephrosis of transplanted kidney
Hypotension
Status post liver transplant
Status post left kidney transplant
History of C. difficile colitis s/p FMT
Diverticulosis
Internal Hemorrhoids
Coronary Artery Disease with stents, Left Kidney/Liver Transplant in 2021 for Cirrhosis secondary to Hepatitis C-at [facility] February 26, 2022,Diabetes Mellitus, Type II Diabetes Mellitus - no history of diabetic neuropathy or retinopathy, Chronic
back pain requiring chronic opioid dependence, History of C. difficile colitis, DJD -C3-C4, C5-C6, Right hip ORIF surgery, Anemia, Thrombocytopenia, History of DVT with IVC filter
Mild osteoarthritis in the right hip
Chronic healed intertrochanteric fracture of the right proximal femur with a dynamic hip screw in place
Mild multilevel lumbar discogenic degenerative disease
Abdomen/Pelvis CT (as per radiologist's report):
'1. Moderate hydronephrosis of transplant kidney at the left iliac fossa, worse as compared with the prior study. No ureteral filling defects identified at CT.
2. Post liver transplant.
3. Findings related to portal hypertension with splenomegaly and large number of dilated and tortuous varices in the left upper quadrant.
4. Small cysts and calculus of the [place] left kidney as seen previously.
5. Urinary bladder trabeculation, question chronic outlet obstruction or neurogenic bladder.'
Condition: Fair
Diet: Other diet
Additional Diets: High-fiber, low potassium, carb-controlled diet
Activity: As tolerated
Driving Restrictions: As prior to admission
Bathing Restrictions: None
Blood Work: BMP and CBC 1 week after discharge
Others Tests: Stool osmolar gap, colonoscopy with gastroenterology
Other Services: PT
Activity Restrictions/Additional Instructions:
Skin Care Instructions
Heels- apply moisture lotion or Vaseline and continue heel off loading in bed.
Follow up at wound care center if needed, call for an appointment.
Instructions: Diarrhea in teens and adults
Referrals:
Santiago Alvares, DO [Active] - in one to two weeks
Kalani Vergara, DO [Active] - in two to four weeks (Splenomegaly on hospital imaging)
UNKNOWN - PT NOT,INTERVIEWE [Family Provider] -
Gloria Mesa PA-C [Specified Professional Personl] - 08/14/24 11:30 am (Please call to reschedule if you can not keep this appointment. If your insurance requires a referral please contact your primary care physician prior to your appointment. )
Additional Discharge Medication Instructions: Continue Metamucil fiber 3.4 g daily
Continue Imodium 2 mg every 4 hours as needed for diarrhea (up to 4 doses in a day)
Start Lomotil as needed if Imodium does not improve diarrhea
Decreased insulin glargine to 12 units nightly
Decreased insulin lispro to 7 units with meals
Talk to your business services tech about stopping mycophenolate as this medication MAY be associated with your diarrhea.
Prescriptions:
New
loperamide 2 mg Capsule
2 mg PO Q4HPRN PRN (Reason: diarrhea) 30 Days Qty: 90 0RF
insulin aspart U-100 100 unit/mL (3 mL) Insulin Pen
3 unit SC AC 30 Days Qty: 2.7 0RF
insulin glargine [Lantus Solostar U-100 Insulin] 100 unit/mL (3 mL) insulin pen
12 unit SC QPM 30 Days Qty: 3.6 0RF
diphenoxylate-atropine 2.5-0.025 mg Tablet
1 tab PO Q6HPRN PRN (Reason: Diarrhea despite imodium) 30 Days Qty: 30 0RF
Metamucil Fiber Singles 3.4 gram Powder In Packet
1 packet PO DAILY 30 Days Qty: 30 0RF
ropinirole 0.25 mg Tablet
0.5 mg PO HS 30 Days Qty: 60 0RF
gabapentin 100 mg Capsule
100 mg PO BID 30 Days Qty: 60 0RF
oxycodone 10 mg tablet
10 mg PO Q8H PRN (Reason: Moderate-Severe Pain) 5 Days Qty: 20 0RF
cefdinir 300 mg Capsule
300 mg PO Q12 6 Days Qty: 12 0RF
Continued
aspirin 81 mg Tablet,Delayed Release (Dr/Ec)
81 mg PO DAILY
tacrolimus 1 mg Capsule
3 mg PO Q12H@799,1999 Qty: 180 1RF
mycophenolate sodium 180 mg Tablet,Delayed Release (Dr/Ec)
180 mg PO Q12H@799,1999 Qty: 60 1RF
Discontinued
insulin lispro 100 unit/mL Insulin Pen
7 sliding scale dose SC AC
insulin glargine [Lantus Solostar U-100 Insulin] 100 unit/mL (3 mL) Insulin Pen
20 unit SC HS
Discharge Orders:
Discharge Patient (As Directed); Ordered 07/03/24
Ordered By: Nuria Sandoval
Discharge Date and Time
Discharge Date/Time: 07/05/24 16:58
Print Language: INDONESIAN
[2024-07-05] MEDS: IMODIUM 2 MG PO (15:35)
== END 2024-07-05 16:58 | disposition home or self-care (01) | DRG 394 ==
LOC: 4 WEST ACU 13:36
PROVIDERS: Hospitalist; Internal Medicine; Nurse Practitioner Adult Health; Physician Assistant; Physician Assistant Medical; Specialist; Student in an Organized Health Care Education/Training Program; ADMITTING PHYSICIAN Student in an Organized Health Care Education/Training Program; ATTENDING PHYSICIAN Hospitalist; CONSULT PHYSICIAN Internal Medicine Nephrology; EMERGENCY PHYSICIAN Emergency Medicine; OTHER PHYSICIAN Internal Medicine Gastroenterology
PROC: 0DBG8ZX Excision of Left Large Intestine, Via Natural or Artificial Opening Endoscopic, Diagnostic (ICD-10-PCS; 2024-06-24)
PROC: 0DBP8ZX Excision of Rectum, Via Natural or Artificial Opening Endoscopic, Diagnostic (ICD-10-PCS; 2024-06-24)
PROC: 0DBF8ZX Excision of Right Large Intestine, Via Natural or Artificial Opening Endoscopic, Diagnostic (ICD-10-PCS; 2024-06-24)
DX: K52.1 Toxic gastroenteritis and colitis (principal); D84.821 Immunodeficiency due to drugs; N17.9 Acute kidney failure, unspecified; T86.19 Other complication of kidney transplant; K90.9 Intestinal malabsorption, unspecified; N13.30 Unspecified hydronephrosis; Z94.4 Liver transplant status; F11.20 Opioid dependence, uncomplicated; K76.6 Portal hypertension; Z59.02 Unsheltered homelessness; N39.0 Urinary tract infection, site not specified; K58.0 Irritable bowel syndrome with diarrhea; T45.1X5A Adverse effect of antineoplastic and immunosuppressive drugs, initial encounter; K57.30 Diverticulosis of large intestine without perforation or abscess without bleeding; Z86.19 Personal history of other infectious and parasitic diseases; K64.0 First degree hemorrhoids; Y83.0 Surgical operation with transplant of whole organ as the cause of abnormal reaction of the patient, or of later complication, without mention of misadventure at the time of the procedure; Z95.5 Presence of coronary angioplasty implant and graft; I25.10 Atherosclerotic heart disease of native coronary artery without angina pectoris; E11.65 Type 2 diabetes mellitus with hyperglycemia; G89.29 Other chronic pain; D64.9 Anemia, unspecified; Z86.718 Personal history of other venous thrombosis and embolism; N32.89 Other specified disorders of bladder; Z79.4 Long term (current) use of insulin; D69.6 Thrombocytopenia, unspecified; M54.17 Radiculopathy, lumbosacral region; N40.1 Benign prostatic hyperplasia with lower urinary tract symptoms; Z95.828 Presence of other vascular implants and grafts; Z87.891 Personal history of nicotine dependence; Z79.82 Long term (current) use of aspirin; M25.551 Pain in right hip; N32.0 Bladder-neck obstruction; Z79.621 Long term (current) use of calcineurin inhibitor; Z90.79 Acquired absence of other genital organ(s); L89.611 Pressure ulcer of right heel, stage 1
CPT/HCPCS: 88305; 73502; 74176; 76770; 80048; 80053; 80197; 81003; 81015; 82570; 82607; 82653; 82705; 82746; 82962; 83036; 83993; 84300; 84443; 85014; 85018; 85025; 85027; 85610; 87045; 87046; 87324; 87328; 87329; 87389; 87427; 87449; 87798; 88342; 96360; 96361; 97162; 97166; 97530; 99285

== ENCOUNTER 2024-08-06 22:34 | Inpatient (IN) | payer MEDICARE, OTHER, SELFPAY ==
[2024-08-06 16:13] VITALS: BP 134/82
[2024-08-06 16:45] LABS: % Basophils 0.3 % (0-2); % Eosinophils 2.5 % (0-6); % Immature Granulocytes 0.6 % (0-0.5); % Lymphocytes 21.2 % (20.5-51.1); % Monocytes 6.5 % (1.7-9.3); % Neutrophils 68.9 % (42.2-75.2); Absolute Eosinophils 0.2 10^3/uL (0-0.7); Absolute Lymphocytes 1.4 10^3/uL (1.2-3.4); Absolute Monocytes 0.4 10^3/uL (0.1-0.6); Absolute Neutrophils 4.7 10^3/uL (1.4-6.5); Hematocrit 37.2 % (39.0-52.0); Hemoglobin 12.8 g/dL (13.0-18.0); Mean Corp Hgb Conc. 34.4 g/dL (33.0-37.0); Mean Corpuscular Hgb 30.1 pg (27.0-31.0); Mean Corpuscular Volume 87.5 fL (80.0-94.0); Mean Platelet Volume 10.4 fL (7.4-10.4); Nucleated Red Blood Cells % 0 % (-); Platelet Count 150 10^3/uL (130-400); Red Blood Cell Count 4.25 10^6/uL (4.70-6.10); Red Cell Dist. Width 13.6 % (11.5-14.5); White Blood Cell Count 6.8 10^3/uL (4.8-10.8)
[2024-08-06 16:54] LABS: ALT (SGPT) 13 U/L (0-50); AST (SGOT) 18 U/L (17-59); Albumin 3.8 g/dl (3.5-5.0); Alkaline Phosphatase 87 U/L (38-126); Blood Urea Nitrogen 35 mg/dl (9-20); Calcium 8.8 mg/dl (8.4-10.2); Carbon Dioxide 26 mmol/L (22-30); Chloride 105 mmol/L (98-107); Glucose 204 mg/dl (70-99); Lipase 74 U/L (23-300); Potassium 5.7 mmol/L (3.5-5.1); Sodium 139 mmol/L (135-145); Total Bilirubin 0.8 mg/dl (0.2-1.3); Total Protein 6.4 g/dl (6.3-8.2); eGFR > 60.00
[2024-08-06 17:02] LABS: NT-proBNP 752 pg/ml
--- NOTE | 2024-08-06 18:00 | ED.GENMED ---
History of Present Illness
General
Chief Complaint: Swelling
Source: patient
Exam Limitations: none
Time Seen by Provider: 08/06/24 17:25
Nursing documentation reviewed up to this point in time: agreed with
History of Present Illness
History of Present Illness:
Patient is a 64-year-old male who presents to the ER for evaluation. Patient reports he has a history of fatty liver disease insulin-dependent diabetes hep C liver and kidney transplant (2.5 yrs ago), DVT w/ IVC filter , Right ORIF Patient reports
he has had diarrhea since May and was admitted in June for the diarrhea.
In addition to the diarrhea he also complains of back pain which radiates to legs which is documented as chronic back pain during previous admission In addition to the pain in his bilateral legs he notes that his knees and feet and lower legs have
been swollen.
He denies any fever chills chest pain shortness of breath.
In review of discharge summary from July 05 patient was seen by GI for the diarrhea and had a colonoscopy which was negative for CMV colitis. His Dopplers were negative for C. difficile Cryptosporidium Giardia Shigella Campylobacter and Salmonella
Shigella patient. Patient instructed to continue his Metamucil and Imodium.
Also during admission patient had acute kidney injury which improved after IV fluids. Had a CT scan which showed hydronephrosis of the transplanted kidney. He reports he no longer follows with his transplant physicians at our [facility].
Regarding patient's back pain he brought [facility] imaging MRI from 06/02/2024 which does show multiple degenerative changes of the lumbar spine without high-grade spinal canal or foraminal narrowing. Additional findings include disc bulge and
L4-L5 and L5-S1( will be scanned in chart ) .
He denies any saddle paresthesia he does report that his 'diarrhea gets so bad I cannot hold it in.'
Past History
Past History
ED Past Medical History: IDDM, Renal failure and Other (BPH, hepatitis C)
ED Past Surgical History: Cardiac (For cardiac stents 2021), Urological and Other (Liver transplant, kidney transplant 2022)
Social History
Tobacco: Non-smoker
Alcohol: None
Drug: Former user
Personal: Single
Living: homeless
Review of Systems
Review of Systems
Allergies reviewed?: Yes
All Other Systems: ROS reviewed and negative except as documented in HPI and ROS
Constitutional: Reports no symptoms; Denies fever, fatigue or chills
Respiratory: Reports no symptoms
Cardiac: Reports no symptoms
ABD/GI: Reports diarrhea; Denies abdominal pain, nausea or vomiting
: Reports no symptoms
Musculoskeletal: Reports back pain and other (b/l leg swelling )
Skin: Reports no symptoms
Neurological: Reports no symptoms
Psychiatric: Reports no symptoms
Phy Exam
General Physical Exam
General Presentation: no apparent distress
General age: appears stated age
General Skin: warm and dry
General Habitus: normal
General Mental: alert
General Hydration: appears well hydrated
Cardiovascular Exam
Cardiovascular Exam: regular rate/rhythm, no murmur and normal peripheral pulses
Pulmonary Exam
Pulmonary Exam: lungs clear and no respiratory distress
Gastrointestinal Exam
Gastrointestinal Exam: non tender and soft
Neurological Exam
Neurological Exam: alert, oriented x3, no motor deficits, normal reflexs and other (Normal patellar reflexes bilaterally; normal rectal tone)
Scores
Heart Failure Risk
Heart Failure Risk Score: Not Applicable
Course
Orders/Labs/Results
Orders:
Orders
08/06/24 16:25
BNP [NT-proBNP] Urgent
Complete Blood Count/With Diff Urgent
Comprehensive Metabolic Panel Urgent
Lipase Urgent
08/06/24 18:01
Electrocardiogram (*1) Stat
Reason for Study: Other
Other Reason for Exam: chest pain
Cardiac Monitoring- Treatment ONCE
EKG- Treatment ONCE
0.9% Sodium Chloride 1000 ml [Nss] 1,000 ml IV BOLUS
08/06/24 18:17
Venous Doppler Lwr Ext Bilat [US Periph Venous LOWER Ext Ubaldo] Urgent
Comment:
Reason For Exam: l/e swelling b/l
08/06/24 19:34
Drug Screen, Urine [Urine Drug Abuse Screen] Urgent
Date Specimen was Collected: 08/06/24
Time Specimen was Collected: 19:28
UA Reflex to Culture [Urinalysis Reflex To Culture] Urgent
Date Specimen was Collected: 08/06/24
Time Specimen was Collected: 19:28
Urine Microscopic Reflex Cult Urgent
08/06/24 20:01
Potassium Urgent
Abnormal Lab Results
08/06/24 08/06/24
16:25 19:34
RBC 4.25 L 10^6/uL
(4.70-6.10)
Hgb 12.8 L g/dL
(13.0-18.0)
Hct 37.2 L %
(39.0-52.0)
Immature Gran % 0.6 H %
(0-0.5)
Potassium 5.7 H mmol/L
(3.5-5.1)
BUN 35 H mg/dl
(9-20)
Glucose 204 H mg/dl
(70-99)
Ur Occult Blood Reflex 4+ A
(Negative)
Urine RBC 7-10 A /HPF
(0-2)
Urine Glucose 4+ A
(Negative)
Urine Albumin (Reflex) 2+ A
(Neg - Trace)
08/06/24 16:25
08/06/24 20:01
Vital Signs
Initial and Last Documented VS:
Initial Vital Signs
Temp Pulse Resp BP Pulse Ox
99.3 F 93 18 134/82 98
08/06/24 16:13 08/06/24 16:13 08/06/24 16:13 08/06/24 16:13 08/06/24 16:13
Last Documented Vital Signs
Temp Pulse Resp BP Pulse Ox
99.3 F 84 14 141/85 100
08/06/24 16:13 08/06/24 20:30 08/06/24 20:30 08/06/24 20:00 08/06/24 19:45
Photographic Spotter consulted with Physician
Photographic Spotter consulted with physician?: Yes
Name of Physician Consulted: [email or web address]
MDM/Problems Addressed
Differential Diagnosis Includes:
Not limited to chronic back pain, chronic diarrhea [place] abnormality dehydration, DVT lower extremity
MDM/Problems Addressed:
Patient is a 64-year-old male as documented with liver renal transplant diabetes presents to the ER for evaluation of chronic diarrhea and chronic back pain with radiation to legs and lower extremity swelling bilaterally. Was seen here in June had
diarrhea worked up with negative cultures. Patient reports diarrhea is persistent and at times he can even control it. He does have chronic back pain complaint as well and has chronic degenerative changes. He did bring his MRI lumbar spine which
was done at [facility] from May 2024 which does show a disc bulge at L4-L5 and a disc bulge and L5-S1. He does have normal patellar reflexes bilaterally and normal rectal tone he denies any saddle paresthesia.
Patient complained of lower extremity swelling and ultrasound was done and does show occlusive thrombus in the right peroneal vein. Patient does have an IVC filter and noted that his previous transplant physicians did not want him on anticoagulation
Patient does not seem to be compliant with following up with physicians; he has not seen his transplant physicians in a while. He does not feel that he can care for himself at home with his persistent diarrhea and pain
I did review patient's database and although he was prescribed narcotic during previous admission upon discharge he did not fill this . His UDS is negative.
Patient's labs reviewed within normal white count stable hemoglobin initially patient's potassium was elevated however repeat was 4.4. His BUN is elevated at 35 which is chronic; his UDS is negative.
Pt does not feel that he can go home with his situation including chronic pain and diarrhea. He will likely need case management and possible placement. He has not seen pain management
Chronic conditions affecting care:
Liver/renal transplant, diabetes
*Radiology
Radiology exam reviewed: radiology read reviewed
*Pulse Oximetry
Patient hypoxic: no
*EKG
Interpreted by ED Provider?: Yes
Heart Rate: 85
Rate: normal
Rhythm: sinus
Ischemia: no ischemia
*Critical Care Note
Total Time (30-74mins, 75-104mins- exclusive of procedures): Not Applicable
Data Reviewed
Review of Other/Old Records Reveals: Labs and Discharge Summary
Source: patient
ED Attending Note
-
Portions of this chart may have been created with voice recognition software.� Occasional wrong word or��sound alike� substitutions may have occurred due to the inherent limitations of voice recognition software.
Discharge Plan
Departure
Patient Disposition: Admit
Date of Disposition: 08/06/24
Time of Disposition: 21:39
Admit to: Med/Surg
Admit to doctor: hospitalist
Presentation/result/management discussed w/ accepting MD/DO: Hospitalist
Patient with high blood pressure during this ER visit?: Yes
Condition: Fair
Covid-19: Not Applicable
Discharge Problem:
Chronic diarrhea, Back pain, Acute deep vein thrombosis (DVT) of right lower extremity
Prescriptions:
No Action
aspirin 81 mg Tablet,Delayed Release (Dr/Ec)
81 mg PO DAILY
loperamide 2 mg Capsule
2 mg PO Q4HPRN PRN (Reason: diarrhea) 30 Days Qty: 90 0RF
insulin aspart U-100 100 unit/mL (3 mL) Insulin Pen
3 unit SC AC 30 Days Qty: 2.7 0RF
insulin glargine [Lantus Solostar U-100 Insulin] 100 unit/mL (3 mL) insulin pen
12 unit SC QPM 30 Days Qty: 3.6 0RF
diphenoxylate-atropine 2.5-0.025 mg Tablet
1 tab PO Q6HPRN PRN (Reason: Diarrhea despite imodium) 30 Days Qty: 30 0RF
Metamucil Fiber Singles 3.4 gram Powder In Packet
1 packet PO DAILY 30 Days Qty: 30 0RF
ropinirole 0.25 mg Tablet
0.5 mg PO HS 30 Days Qty: 60 0RF
gabapentin 100 mg Capsule
100 mg PO BID 30 Days Qty: 60 0RF
oxycodone 10 mg tablet
10 mg PO Q8H PRN (Reason: Moderate-Severe Pain) 5 Days Qty: 20 0RF
cefdinir 300 mg Capsule
300 mg PO Q12 6 Days Qty: 12 0RF
tacrolimus 1 mg Capsule
3 mg PO Q12H@799,1999 Qty: 180 1RF
mycophenolate sodium 180 mg Tablet,Delayed Release (Dr/Ec)
180 mg PO Q12H@799,1999 Qty: 60 1RF
Referrals:
UNKNOWN - PT DOES,NOT KNOW [Family Provider] -
Interventions
Interventions:
*Risk Screen - Suicide Last Done: 08/06/24 16:13
*General Assessment Last Done: 08/06/24 16:13
*Neglect/Abuse Screening Last Done: 08/06/24 16:13
*ED COVID-19 Vaccine History Last Done: 08/06/24 16:13
ED- Cardiac Assessment Last Done: 08/06/24 18:29
ED- Pulmonary Assessment Last Done: 08/06/24 18:29
ED-Skin Assessment Last Done: 08/06/24 18:29
Discharge Date and Time
Print Language: [id number]
[2024-08-06 18:19] VITALS: BP 152/83
[2024-08-06] MEDS: NSS 1000 IV (18:21)
[2024-08-06 19:36] VITALS: BP 146/86
[2024-08-06 19:58] LABS: Urine Albumin 2+ (Neg - Trace); Urine Bilirubin Negative (Negative); Urine Character Clear (Clear); Urine Color Yellow; Urine Glucose 4+ (Negative); Urine Ketone Negative (Negative); Urine Leukocyte Negative (Negative); Urine Nitrite Negative (Negative); Urine Occult Blood 4+ (Negative); Urine Specific Gravity 1.015 (<1.030); Urine Urobilinogen Negative (Neg - 1+)
[2024-08-06 20:00] VITALS: BP 141/85
[2024-08-06 20:11] LABS: Urine Squamous Cell 0-2 /LPF (Few); Urine White Cell 0-2 /HPF (0-5)
[2024-08-06 20:19] LABS: Amphetamines Negative (Negative); Barbiturates Negative (Negative); Benzodiazepines Negative (Negative); Buprenorphine Negative (Negative); Cocaine Negative (Negative); Marijuana Negative (Negative); Methadone Negative (Negative); Methamphetamines Negative (Negative); Opiates Negative (Negative); Phencyclidine Negative (Negative); Tricyclic Antidepressants Negative (Negative)
[2024-08-06 20:19] LABS: Potassium 4.4 mmol/L (3.5-5.1)
[2024-08-06 22:05] VITALS: BP 128/70
--- NOTE | 2024-08-06 22:26 | HPS.HSE ---
Family Physician
-
Family Physician: NOT KNOW UNKNOWN - PT DOES
Chief Complaint
-
watery diarrhea, , leg swelling
History of Present Illness
HPI
64M HX chr diarrhea, Lt KTP + Liver TP at [facility] , HX portal hypertension with splenomegaly, large number of dilated and tortuous varices in the left upper quadrant, IDDM, Hep C, anemia, thrombocytopenia and HX DVT, not AC candidate, s/p IVF filter
seen at ER:
- HX length admission to in 06/21/24 - 07/05/24 for Watery diarrhea of unknown origin and ROXY
- pain in bilateral swollen legs. HX DVT with IVCF due to hi risk for bleeding
- HX portal hypertension with splenomegaly, large number of dilated and tortuous varices in the LUQ
Ref to back pain which radiates to legs which is documented as chronic back pain during previous admission:
( [facility] MRI from 06/02/2024 : multiple degenerative changes of the lumbar spine without high-grade spinal canal or foraminal narrowing. Additional findings include disc bulge and L4-L5 and L5-S1( will be scanned in chart )
- denies any saddle paresthesia
ROS:
denies any fever chills chest pain shortness of breath.
Review of DC summary June
- seen by GI for the diarrhea and had a colonoscopy which was negative for CMV colitis.
- negative for C. difficile Cryptosporidium Giardia Shigella Campylobacter and Salmonella Shigella
- instructed to continue his Metamucil and Imodium.
- ROXY was improved after IV fluids.
- CT scan which showed hydronephrosis of the transplanted kidney.
Of note:
He reports he no longer follows with his transplant physicians at [facility].
Medical History
Past Medical History
Past Medical History: Reports Other
Additional Past Medical History:
Coronary Artery Disease
Diabetes Mellitus, Type II
Cirrhosis secondary Hepatitis C
BPH
DVT s/p IVC Filter
Past Surgical History: Reports Other
Additional Past Surgical History:
Kidney Transplant
Liver Transplant
Cardiac Stents
Right Hip ORIF
TURP
Social History
Tobacco: Former Smoker (Quit 14 years ago)
Alcohol: None
Drug: None
Family History
Family History: Not pertinent
Allergies / Home Medications
Allergies reflects when Allergies were last updated in [employer].
Home Medications with original date entered in [employer]
Allergy/Medication List:
Allergies
Allergy/AdvReac Type Severity Reaction Status Date / Time
No Known Allergies Allergy Unverified 06/16/23 10:49
Home Medications
aspirin 81 mg tablet,delayed release 81 mg PO DAILY 08/15/23
insulin lispro 100 unit/mL subcutaneous pen 0 sliding scale dose SC DIRECTED 08/15/23
mycophenolate sodium 180 mg tablet,delayed release 180 mg PO Q12H@0800,199908/15/23
oxycodone 10 mg tablet 10 mg PO BID PRN severe pain 08/15/23
tacrolimus 1 mg capsule, immediate-release 3 mg PO Q12H@0800,199908/15/23
Review of Systems
-
Constitutional: Reports No Symptoms
EENT: Reports No Symptoms
Respiratory: Reports No Symptoms
Cardiac: Reports No Symptoms
: Reports No Symptoms
Musculoskeletal: Reports See HPI
Skin: Reports No Symptoms
Neurological: Reports No Symptoms
Endocrine: Reports No Symptoms
Hematologic/Lymphatic: Reports No Symptoms
Psych: Reports No Symptoms
Physical Exam
Vital Signs
Vital Signs
Temp Pulse Resp BP Pulse Ox
99.3 F 84 14 141/85 100
08/06/24 16:13 08/06/24 20:30 08/06/24 20:30 08/06/24 20:00 08/06/24 19:45
Physical Exam
General: Comfortable and Conversant
HEENT: Anicteric and Moist mucous membranes
Respiratory: Clear and Non Labored Respirations
Cardiac: S1/S2 and Regular Rhythm
GI: Soft, Non Tender and Non Distended
Rectal: Deferred by Provider
Musculoskeletal: No Clubbing, No Cyanosis and No Edema
Skin: Warm and Dry
Neuro: Awake, Alert, Oriented and Nonfocal/grossly intact
Psych: Calm
Laboratory Results
-
08/06/24 16:25
08/06/24 20:01
Laboratory Results
Total Bilirubin 0.8 mg/dl (0.2-1.3) 08/06/24 16:25
AST 18 U/L (17-59) 08/06/24 16:25
ALT 13 U/L (0-50) 08/06/24 16:25
Alkaline Phosphatase 87 U/L (38-126) 08/06/24 16:25
Lipase 74 U/L (23-300) 08/06/24 16:25
Data Reviewed
-
Ultrasound: Report Reviewed by me
Medical Tests (Nuc Med, Echo, EKG etc): Report Reviewed by me
Lab Data: Labs Reviewed by me
Old Records: Reviewed
Impression/Plan
-
Data
Hgb 12.8 - baseline Hgb low 11s
BUN 35 Cr 1.1 eGFR > 60
Pro BNP 752
BG 204
NEG UA
NEG UDS
EKG
NSR
Nl EKG
US Peripheral Venous LOWER Ext Ubaldo
Rt LE:
- nonocclusive thrombus in the mid to distal anterior division of the peroneal vein
- occlusive thrombus in the posterior division of the peroneal vein.
- Remaining deep venous system is patent.
Lt Win:
- nonocclusive thrombus throughout the left femoral vein.
- The remaining deep venous system is patent.
Abdomen/Pelvis CT
1. Moderate hydronephrosis of transplant kidney at the left iliac fossa, worse as compared with the prior study. No ureteral filling defects identified at CT.
2. Post liver transplant.
3. Findings related to portal hypertension with splenomegaly and large number of dilated and tortuous varices in the left upper quadrant.
4. Small cysts and calculus of the [place] left kidney as seen previously.
5. Urinary bladder trabeculation, question chronic outlet obstruction or neurogenic bladder.'
Last hospitalist admission: 06/21/24 - 07/05/24
Watery diarrhea of unknown origin
Prerenal ROXY
Hydronephrosis of Lt TPK
Hypotension
Left Kidney/Liver Transplant in 2021 for Cirrhosis secondary to Hepatitis C-at [facility] Feb 26, 2022
y History of DVT with IVC filter
Anemia, Thrombocytopenia,
HX C. difficile colitis s/p FMT
Diverticulosis
Internal Hemorrhoids
CAD stents
DMT2 - no history of diabetic neuropathy or retinopathy
chronic opioid dependence chronic back pain
DJD -C3-C4, C5-C6, Right hip ORIF surger
Mild osteoarthritis in the right hip
Chronic healed intertrochanteric fracture of the right proximal femur with a dynamic hip screw in place
Mild multilevel lumbar discogenic degenerative disease
ASSESSMENT & PLAN
Chronic diarrhea flare with urgency and incontinence of feces
HX Scheduled GI follow up 08/14/[address] Gloria Mesa at 11:30am
- HX C Diff colitis
- Recent IP GI evaluation in June for the diarrhea and had a colonoscopy which was negative for CMV colitis.
- Recent NEG C. difficile Cryptosporidium Giardia Shigella Campylobacter and Salmonella Shigella
- HX normal Fecal studies: Stool fat normal, stool split fat normal, stool pancreatic elastase normal, stool calprotectin normal
- to repeat stool for C Diff and stool Cx
- cont. Metamucil and Imodium.
- Gentle IV NS @ 60/H for 1000 cc
- daily BMP
- Monitor BMs
- GI consult
B/l Win DVT occlusive and non occlusive but patent collateral
Prior HX DVT with IVCF placement
Hi risk AC candiate
- Hemodynamically stable
- Hold off systemic AC
- Heme consult
Chronic normocytic anemia
-Likely inflammatory anemia with chronic diarrhea, OLT, kidney transfer
-No signs or symptoms of bleeding
- Non bloody bowel movements
-Trend CBC
HX cirrhosis s/p OLT
CT suggest large number of dilated and tortuous varices in the left upper quadrant
Thrombocytopenia due to PHT and hypersplenism
Of note: no longer follows with his transplant physicians at [facility].
-Previous cirrhosis due to Hep C
- on INSTRUMENTATION AND CONTROLS TECHNICIAN MMF and tacrolimus
- monitor CBC
- await GI input
Known Hydronephrosis of TP Kidney
Of note: no longer follows with his transplant physicians at [facility].
- Cr 1.1 is at baseline, eGFR > 60
- cont. mycophenolate for now
- cont. tacrolimus - check levl
- Low K diet
- Nephrology consult
Concern for UTI on last admission due to dysurai and empicially treated with Cefdinir 300 mg BID during last admission and 3 more doses on discharge
- no longer on Cefdinir
HX CAD s/p PCI
- cont. ASA ; not on beta-jakub or statin
Ir DDT@
-Most recent A1c 6.6%
-No known HX microvascular complications
- cont Home regimen includes Lantus and NovoLog
- ISS low ISS and Accu-Cheks
- BG goal 140-180
Chronic Right hip pain :Denied recent trauma
Per PDMP: Last Rx was November 2023 for oxycodone 5mg q6Hr prn
- prior recent Hip XR : No acute patho: Chronic healed intertrochanteric Fx Rt right proximal femur with a dynamic hip screw in place.
- IV Dilaudid 1 mg given at ER
- resume Oxycodone 5mg q6H prn
- c/w INSTRUMENTATION AND CONTROLS TECHNICIAN gabapentin -dose can be adjusted
Known Lumbosacral radiculopathy
- To consider TERESSA
-PT/OT
DVT prophylaxis: S/p IVC filter, SQ hep
Full code
IP MS
[2024-08-06] MEDS: DILAUDID 1 MG IV (22:46)
[2024-08-06] MEDS: FLUSH (NSS) 1 FLUSH IV (22:47)
[2024-08-06 23:00] VITALS: BP 129/71
[2024-08-07] VITALS (13 sets, daily range): BP systolic 104–153; BP diastolic 62–89; PULSE 81
[2024-08-07] MEDS: ROXICODONE 5 MG PO ×3 (01:02→21:58)
[2024-08-07] MEDS: NSS 1000 IV ×2 (01:06→19:49)
[2024-08-07] MEDS: DILAUDID 0.5 MG IV (04:03)
[2024-08-07 06:35] LABS: Glucose - Point of Care 76 mg/dl (70-99)
[2024-08-07] MEDS: NOVOLOG FLEXPEN-LOW RESISTANCE SC (07:03)
[2024-08-07] MEDS: NOVOLOG FLEXPEN SC (07:03)
[2024-08-07 07:11] LABS: % Basophils 0.5 % (0-2); % Eosinophils 3.4 % (0-6); % Immature Granulocytes 0.5 % (0-0.5); % Lymphocytes 26.8 % (20.5-51.1); % Monocytes 6.8 % (1.7-9.3); Absolute Eosinophils 0.2 10^3/uL (0-0.7); Absolute Lymphocytes 1.7 10^3/uL (1.2-3.4); Absolute Monocytes 0.4 10^3/uL (0.1-0.6); Absolute Neutrophils 3.8 10^3/uL (1.4-6.5); Hematocrit 33.1 % (39.0-52.0); Hemoglobin 11.5 g/dL (13.0-18.0); Mean Corp Hgb Conc. 34.7 g/dL (33.0-37.0); Mean Corpuscular Hgb 30.5 pg (27.0-31.0); Mean Corpuscular Volume 87.8 fL (80.0-94.0); Mean Platelet Volume 9.8 fL (7.4-10.4); Nucleated Red Blood Cells % 0 % (-); Platelet Count 110 10^3/uL (130-400); Red Blood Cell Count 3.77 10^6/uL (4.70-6.10); Red Cell Dist. Width 13.5 % (11.5-14.5); White Blood Cell Count 6.2 10^3/uL (4.8-10.8)
[2024-08-07] MEDS: NEURONTIN 300 MG PO ×2 (07:50→19:49)
[2024-08-07] MEDS: ASPIR LOW (ENTERIC COATED) 81 MG PO (07:50)
[2024-08-07] MEDS: METAMUCIL, KONSYL 1 PACKET PO (07:50)
--- NOTE | 2024-08-07 08:02 | W.PN.HOSP.TC ---
Today's Communication/Plan
-
- F/u with specialist consults
Assessment / Plan
Assessment / Plan
Chronic recurrent watery diarrhea of unknown origin:
- Patient is afebrile, and WBC count is normal
- C diff and stool cultures are ordered
- Previous fecal studies normal, last admission negative for C diff, cryptosporidium, Giardia, shigella, Campylobacter, salmonella, shigella
- Continue on immodium PRN which has helped relieve his diarrhea
- Continue on Metamucil
- Monitor bowel movements
- GI consulted
Bilateral Lower extremity DVT:
- Confirmed on peripheral vascular ultrasound on 08/06/24
- Vitals are stable
- Patient has previous history of DVT with IVCF filter placement
- Poor candidate for anticoagulation
- Heme onc consulted
Cirrhosis of liver due to chronic hepatitis C infection s/p liver transplant:
- Continue on mycophenolate/ tacrolimus
- Monitor CBC
- GI consulted
Presumed Anemia of chronic disease secondary to liver transplant :
- Hgb is 11.5 and stable
- Ordered iron studies
Insulin dependant diabetes mellitus:
- Most recent A1c is 6.6
- Today blood glucose level is 204
- Continue daily AccuCheck
- Continue insulin aspart and glargine home dose.
Chronic right hip pain:
- Using pain meds for previous chronic intertrochanteric fracture right femur with hip screw in place
- continue with oxycodone 5 mg q6h
Chronic back pain
Previous hx of lumbosacral radiculopathy:
- Continue gabapentin
- PT/OT
DVT ppx- heparin
Full code
Anticipated Discharge: 24 - 48 hours
Subjective/Interval History
-
Date of Service: August 07, 2024
Complaining of lower back pain, numbness in both his legs, and has had no episodes of diarrhea since yesterday.
Objective Data
-
Labs:
Laboratory Results
08/06/24 08/07/24
20:01 06:35
WBC 6.2
Hgb 11.5 L
Hct 33.1 L
Plt Count 110 L D
Potassium 4.4
Vital Signs:
Vital Signs
Temp Pulse Resp BP Pulse Ox
98.2 F 79 20 121/62 99
08/07/24 06:42 08/07/24 06:42 08/07/24 06:42 08/07/24 06:42 08/07/24 06:42
Review of Systems
-
History Source: Patient
All other systems: Reviewed and negative
Physical Exam
-
Respiratory: Clear to Auscultation
Cardiac: Regular Rhythm and S1/S2
GI: Soft, Nontender and Normal Bowel Sounds
Skin: Warm and Dry
Neuro: Awake, Alert, Oriented, AO x 3 and Other (numbness in both lower extremities bilaterally )
Psych: Calm
Data Reviewed
-
Labs: Labs Reviewed by me and Discussed with Physician
[2024-08-07 08:34] LABS: Glycohemoglobin (HgbA1c) 8.2 % (4.0-5.6)
[2024-08-07] MEDS: PROGRAF PO ×2 (09:04→09:16)
[2024-08-07] MEDS: MYFORTIC DELAYED REL. 180 MG PO ×2 (09:04→19:49)
--- NOTE | 2024-08-07 09:19 | CON.ONC ---
Consultation
-
Date Consultation Requested: 08/07/24
Date Consultation Performed: 08/07/24
Requesting Provider: Yaneli
Performing Provider: Roselyn
Reason for Consultation: DVT
Impression
Impression
B/L LE DVT, Left side chronic.
S/P IVC Filter. Not A/C candidate 2* falls risk, varices
Chronic recurrent watery diarrhea of unknown origin - GI consulted
Cirrhosis of liver due to chronic hepatitis C infection s/p liver transplant:
Anemia of chronic disease
Insulin dependant diabetes mellitus:
Chronic back pain
Plan
Plan
IVC Filter for long chain quiller tender DVT management to decrease risk of PE as not A/C candidate.
Heparin ppx dosage ordered 5000 Q12. That is an optional maneuver with active thrombosis. Defer to primary team.
Pain control.
Nothing too much else to add. Will sign off.
Patient History
History of Present Illness
CC: diarrhea, , leg swelling
HPI:
64M HepC Liver & Kidney TP at [facility] , HX portal hypertension with splenomegaly, large number of dilated and tortuous varices in the left upper quadrant, IDDM, Hep C, anemia, thrombocytopenia and HX DVT, not AC candidate, s/p IVF filter 01/2020 seen
at ER with severe diarrhea. Recent lengthy admission to in 06/21/24 - 07/05/24 for Watery diarrhea of unknown origin and ROXY. B/L leg pain and swelling with Hx LLE DVT 01/2020 s/p IVCF due to high risk for bleeding and esophageal varices. GI
evaluation in June had a colonoscopy which was negative for CMV colitis. Also negative for C. difficile Cryptosporidium Giardia Shigella Campylobacter and Salmonella Shigella. He reports he no longer follows with his transplant physicians at
[facility]. Asked to see for B/L LE DVT:
Doppler 08/06
On the right, there is nonocclusive thrombus in the mid to distal anterior division of the peroneal vein, and occlusive thrombus in the posterior division of the peroneal vein. Remaining deep venous system is patent.
On the left, there is nonocclusive thrombus throughout the left femoral vein. The remaining deep venous system is patent. Based on old records this has been chronic since 2019.
No CP or SOB. Never had PE.
Past-Medical/Surgical History
PMH:
Coronary Artery Disease
Diabetes Mellitus, Type II
Cirrhosis secondary Hepatitis C
BPH
LE DVT s/p IVC Filter, 01/2020
PSH:
Kidney Transplant
Liver Transplant
Cardiac Stents
Right Hip ORIF
TURP
Social History
Tobacco: Former Smoker (Quit 14 years ago)
Alcohol: None
Drug: None
Family History
Family History: Not pertinent
Patient Medication
�Medication �Instructions �Recorded �Confirmed �Last Taken �Type
aspirin 81 mg tablet,delayed 81 mg PO DAILY Blood Clot 08/15/23 08/06/24 08/06/24 History
release Prevention/Tx
insulin aspart U-100 100 unit/mL 3 unit (0.03 mL) SC AC Diabetes 1 06/30/24 08/06/24 08/06/24 Rx
(3 mL) subcutaneous pen month #2.7 mL
loperamide 2 mg capsule 2 mg PO Q4HPRN PRN diarrhea 1 06/30/24 08/06/24 08/06/24 Rx
month #90 caps
ropinirole 0.25 mg tablet 0.5 mg (2 x 0.25 mg) PO HS 06/30/24 08/06/24 08/05/24 Rx
restless legs 1 month #60 tabs
mycophenolate sodium 180 mg 180 mg PO Q12H@0800,1999 Kidney 07/08/24 08/06/24 08/06/24 Rx
tablet,delayed release transplant #60 tabs
tacrolimus 1 mg capsule, 3 mg (3 x 1 mg) PO Q12H@0800,199907/08/24 08/06/24 08/06/24 Rx
immediate-release kidney transplant #180 caps
gabapentin 100 mg capsule 300 mg PO BID 08/06/24 08/06/24 08/06/24 History
insulin glargine 100 unit/mL (3 24 unit SC HS Diabetes 08/06/24 08/06/24 08/05/24 History
mL) subcutaneous pen (Lantus
Solostar U-100 Insulin)
Active Medications
Generic Name Dose Route Start Last Admin
Trade Name Freq PRN Reason Stop Dose Admin
Acetaminophen 650 mg 08/06/24 23:45
Acetaminophen 325 Mg Tablet PO 09/03/24 23:44
Q4HPRN PRN
mild pain/MARTI/temp> 100.4F
Aspirin 81 mg 08/07/24 08:00 08/07/24 07:50
Aspirin 81 Mg (Enteric Coated) Tablet PO 09/04/24 07:59 81 mg
DAILY EULOGIO Administration
Dextrose 12.5 grams 08/06/24 23:45
Dextrose 50% (0.5 Grams/Ml) 50 Ml Syringe IV 09/03/24 23:44
[id number] PRN
hypoglycemia
Protocol
Gabapentin 300 mg 08/07/24 08:00 08/07/24 07:50
Gabapentin 100 Mg Capsule PO 09/04/24 07:59 300 mg
BID EULOGIO Administration
Glucagon 1 mg 08/06/24 23:45
Glucagon 1 Mg Vial IM 09/03/24 23:44
PRN PRN
hypoglycemia
Protocol
Heparin Sodium 5,000 units 08/07/24 08:00 08/07/24 07:59
Heparin 5,000 Units/Ml 1 Ml Vial SC 09/04/24 07:59 Not Given
Q12 EULOGIO
Sodium Chloride 1,000 mls @ 60 mls/hr 08/06/24 23:45 08/07/24 01:06
Nss IV 1,000 mls
[id number] EULOGIO Administration
Insulin Glargine 24 units/ 0.24 mls @ 0 mls/hr 08/07/24 22:00
Device SC 09/04/24 21:59
HS EULOGIO
As Directed
Insulin Aspart 3 units 08/07/24 07:30 08/07/24 07:03
Insulin Aspart (100 Units/Ml) 3 Ml Flexpen SC 09/04/24 07:29 Not Given
AC EULOGIO
Insulin Aspart 0 units 08/07/24 07:30 08/07/24 07:03
Insulin Aspart Low Resistance 300 Units/3 Ml Pen.Injctr SC 09/04/24 07:29 Not Given
AC EULOGIO
Protocol
Loperamide HCl 2 mg 08/06/24 23:45
Loperamide 2 Mg Capsule PO 09/03/24 23:44
Q4HPRN PRN
diarrhea
Mycophenolate Sodium 180 mg 08/07/24 08:00 08/07/24 09:04
Mycophenolic Acid [address] Tablet (Non Form) PO 180 mg
Q12 EULOGIO Administration
Oxycodone HCl 5 mg 08/06/24 23:45 08/07/24 08:02
Oxycodone 5 Mg Regular Release Tablet PO 08/20/24 23:44 5 mg
Q6HPRN PRN Administration
severe pain
Polyethylene Glycol 17 grams 08/06/24 23:45
Polyethylene Glycol Powder 17 Grams Packet PO 09/03/24 23:44
DAILYPRN PRN
constipation
Psyllium Hydrophilic Mucilloid 1 packet 08/07/24 08:00 08/07/24 07:50
Psyllium Packet PO 09/04/24 07:59 1 packet
DAILY EULOGIO Administration
Ropinirole HCl 0.5 mg 08/07/24 22:00
Ropinirole 0.25 Mg Tablet PO 09/04/24 21:59
HS EULOGIO
Sodium Chloride 0 flush 08/06/24 22:00 08/06/24 22:47
Sodium Chloride 0.9% (Flush) Syringe IV 09/03/24 21:59 1 flush
PER PROTOCOL EULOGIO Administration
Tacrolimus 3 mg 08/07/24 08:00 08/07/24 09:16
Tacrolimus 1 Mg Capsule PO 09/04/24 07:59 Not Given
Q12 EULOGIO
Physical Exam
-
General: No Apparent Distress and Comfortable
HEENT: Negative Jaundice
Cardiology: S1 and S2
Pulmonary: Clear
GI: Soft
Extremities: Other (B/L LE swelling and edema)
Labs
Lab Results
WBC 6.2 10^3/uL (4.8-10.8) 08/07/24 06:35
RBC 3.77 10^6/uL (4.70-6.10) L 08/07/24 06:35
Hgb 11.5 g/dL (13.0-18.0) L 08/07/24 06:35
Hct 33.1 % (39.0-52.0) L 08/07/24 06:35
MCV 87.8 fL (80.0-94.0) 08/07/24 06:35
MCH 30.5 pg (27.0-31.0) 08/07/24 06:35
MCHC 34.7 g/dL (33.0-37.0) 08/07/24 06:35
RDW 13.5 % (11.5-14.5) 08/07/24 06:35
Plt Count 110 10^3/uL (130-400) L D 08/07/24 06:35
MPV 9.8 fL (7.4-10.4) 08/07/24 06:35
Abs Immat Gran (auto) 0.0 10^3/uL (0-0.05) 08/07/24 06:35
Absolute Neuts (auto) 3.8 10^3/uL (1.4-6.5) 08/07/24 06:35
Absolute Lymphs (auto) 1.7 10^3/uL (1.2-3.4) 08/07/24 06:35
Absolute Monos (auto) 0.4 10^3/uL (0.1-0.6) 08/07/24 06:35
Absolute Eos (auto) 0.2 10^3/uL (0-0.7) 08/07/24 06:35
Absolute Basos (auto) 0.0 10^3/uL (0-0.2) 08/07/24 06:35
Immature Gran % 0.5 % (0-0.5) 08/07/24 06:35
Neutrophils % 62.0 % (42.2-75.2) 08/07/24 06:35
Lymphocytes % 26.8 % (20.5-51.1) 08/07/24 06:35
Monocytes % 6.8 % (1.7-9.3) 08/07/24 06:35
Eosinophils % 3.4 % (0-6) 08/07/24 06:35
Basophils % 0.5 % (0-2) 08/07/24 06:35
Creatinine 1.1 mg/dL (0.7-1.3) 08/06/24 16:25
Vital Signs
Vital Signs
Temp Pulse Resp BP Pulse Ox
97.4 F 81 12 121/62 99
08/07/24 09:17 08/07/24 09:15 08/07/24 09:15 08/07/24 06:42 08/07/24 06:42
--- NOTE | 2024-08-07 10:01 | W.PN.UPDATE ---
Update Note
Progress Note Update
I saw and evaluated the patient. I reviewed the resident�s note and agree with findings and plan as documented in the resident�s note.
Pt states no diarrhea this AM.
Gen: NAD, AAOx3.
Eyes: EOMI, PERRLA, no scleral icterus.
Neck: supple.
CV: RRR, +S1/S2, no m/r/g.
Resp: CTAB, no rales, wheezes, or rhonchi.
Abd: +BS, soft, NT, ND
Skin: No rashes.
Neuro: CN 2-12 intact, non-focal.
Psych: Normal mood and affect.
B/L LE U/S:
RLE:
- nonocclusive thrombus in the mid to distal anterior division of the peroneal vein
- occlusive thrombus in the posterior division of the peroneal vein.
- Remaining deep venous system is patent.
LLE:
- nonocclusive thrombus throughout the left femoral vein.
- The remaining deep venous system is patent.
Abdomen/Pelvis CT
1. Moderate hydronephrosis of transplant kidney at the left iliac fossa, worse as compared with the prior study. No ureteral filling defects identified at CT.
2. Post liver transplant.
3. Findings related to portal hypertension with splenomegaly and large number of dilated and tortuous varices in the left upper quadrant.
4. Small cysts and calculus of the [place] left kidney as seen previously.
5. Urinary bladder trabeculation, question chronic outlet obstruction or neurogenic bladder.'
Chronic diarrhea flare:
-with urgency and incontinence of feces
-h/o C Diff colitis
-Recent IP GI evaluation in June for the diarrhea and had a colonoscopy which was negative for CMV colitis
-Recent NEG C. difficile Cryptosporidium Giardia Shigella Campylobacter and Salmonella Shigella
-h/o normal fecal studies: Stool fat normal, stool split fat normal, stool pancreatic elastase normal, stool calprotectin normal
-cont Metamucil/Imodium PRN
-currently on IVFs
-will send stool studies if able
-GI to see, discussed with GI
Other/chronic problems:
h/o renal tx, chronic hydronephrosis: cont Cellcept/Prograf
h/o cirrhosis (due to HCV) s/p OLT: with associated thrombocytopenia. cont Cellcept/Prograf.
Chronic normocytic anemia: Hb stable
B/L LE DVTs, chronic, occlusive and non occlusive: with patent collaterals. h/o IVC placement. High risk AC candidate.
CAD s/p stent: cont ASA. Start Toprol XL. 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 Pt should discuss starting statin with human resource intern.
DM2: a1c 8.2%, cont Lantus/premeal Novolog, SSI/accuchecks
Known Lumbosacral radiculopathy: to consider TERESSA (would be outpt), PT/OT
Chronic Right hip pain: cont Neurontin
FULL/Heparin
Total time spent on today's encounter was 50 minutes which included time spent in counseling the patient/family regarding diagnosis and treatment plan as listed above, goals of care, and symptom management. Case was discussed with nursing staff,
specialists, and care coordinators/case management. All labs and imaging personally reviewed by me. Remainder the time spent in detailed review of previous records, lab data, imaging, and other medical provider documentation.
--- NOTE | 2024-08-07 11:00 | CON.GI ---
Addendum entered and electronically signed by Joanna Baker MD 08/07/24 14:57:
I saw and examined the patient.
The HELICOPTER OFFICER or PA's note was reviewed and I agree with the note.
Comment:
This patient is a 64-year-old man with a history of liver and kidney transplant in [facility] in 2021 for hepatitis C and cirrhosis. He has been having chronic diarrhea and had an admission where he had stool studies and a colonoscopy with biopsies
which were negative. He does not follow-up with his transplant side door worker but does take MMF.
abd: soft, nontender
impression
hx liver/kidney transplant
chronic diarrhea
plan:
stool studies
enteroscopy with SB bx
imodium
needs transplant doc follow-up and stressed that as meds can also cause diarreha
f/u with us already scheduled for 08/12
Original Note:
Consultation
-
Date/Time Consultation Requested: 08/06/24 2345
Date/Time Consultation Performed: 08/07/24 1100
Requesting Provider: ALTON Knox
Performing Provider: ALTON Ray, Joanna Baker MD
Reason for Consultation: diarrhea
Medical History
Chief Complaint / HPI
Chief Complaint: diarrhea
History of Present Illness:
Pt is a 64yo with hx hep C cirrhosis with prior liver/kidney transplant at [facility] in 2021 on mycophenolate and tacrolimus, c-diff post transplant, hx Esophageal varices, prior stenting ? esophageal vs biliary, CAD with prior stenting, IDDM, DVT
with filter, BPH with prior TURP, ORIF hip, prior foot infection presents with diarrhea since May. he had recent prolonged admission 06/21- 07/05 with work up with colonoscopy, stool studies without etiology for diarrhea and was treated with
metamucil and Imodium. During visit stool fat neg, fecal calpro normal, and elastase 266 which ruled out pancreatic insufficiency. He was recommended OP follow up with transplant specialist to discuss possible Mycophenolate diarrhea which he has
not completed since discharge and last visit over 1 years ago.
In review with patient he admits he in no longer homeless and living in an RV on [address]. He cannot afford parking in the city and did not proceed for follow up but did not try to get telehealth visit. He reports 2 weeks ago had
incontinence of diarrhea while at [facility] and was arrested for disorderly conduct but concerned as diarrhea continues. He admits to on nocturnal stools. he will wake up and have formed stool with use of Imodium then about 3 loose stools daily with
some difficulty controlling at times. He also admits to occasional dysphagia and variable weight. He admits to good access to food and denies odynophagia, GERD, nausea, vomiting, abdominal pain, constipation, blood or black in stools. Last
colonoscopy 06/2024- fair prep, hemorrhoids, stool in entire colon, diverticulosis, bx neg CVM and microscopic colitis. Pt is scheduled GI follow up next week 08/14 11:30 am with Gloria Mesa.
.
Past Medical History
Past Medical History: CAD, IDDM and Other (hep C with cirrhosis and prior liver/kidney transplant - 2021 [facility], DVT with filter, BPH, prior foot infection, c-diff )
Past Surgical History: Cardiac (stents ), Orthopedic (hip ORIF), Urological (TURP) and Other (liver/kidney transplant )
Social History
Tobacco: Non-Smoker
Alcohol: None
Drug: Marijuana (in past )
Living: Alone
Employment: Disabled
Family History
Family History: Other (no family hx liver issues )
Allergies / Home Medications
Allergy/AdvReac Type Severity Reaction Status Date / Time
No Known Allergies Allergy Verified 08/06/24 16:15
�Medication �Instructions �Recorded
aspirin 81 mg tablet,delayed 81 mg PO DAILY Blood Clot 08/15/23
release Prevention/Tx
insulin aspart U-100 100 unit/mL 3 unit (0.03 mL) SC AC Diabetes 1 06/30/24
(3 mL) subcutaneous pen month #2.7 mL
loperamide 2 mg capsule 2 mg PO Q4HPRN PRN diarrhea 1 06/30/24
month #90 caps
ropinirole 0.25 mg tablet 0.5 mg (2 x 0.25 mg) PO HS 06/30/24
restless legs 1 month #60 tabs
mycophenolate sodium 180 mg 180 mg PO Q12H@0800,1999 Kidney 07/08/24
tablet,delayed release transplant #60 tabs
tacrolimus 1 mg capsule, 3 mg (3 x 1 mg) PO Q12H@0800,199907/08/24
immediate-release kidney transplant #180 caps
gabapentin 100 mg capsule 300 mg PO BID 08/06/24
insulin glargine 100 unit/mL (3 24 unit SC HS Diabetes 08/06/24
mL) subcutaneous pen (Lantus
Solostar U-100 Insulin)
Review of Systems
-
History Source: Patient
Constitutional: Reports Weight Loss (weight up and down ) and Chills
EENT: Reports Other (dysphagia at times )
Respiratory: Reports No Symptoms
Cardiac: Reports No Symptoms
Abdomen/GI: Reports Diarrhea (formed stool with imodium then loose stool)
: Reports Other (some hx UTI)
Musculoskeletal: Reports No Symptoms
Skin: Reports No Symptoms
Neurological: Reports Weakness
Endocrine: Reports No Symptoms
Hematologic/Lymphatic: Reports No Symptoms
Vital Signs
Temp Pulse Resp BP Pulse Ox
97.4 F 81 12 121/62 99
08/07/24 09:17 08/07/24 09:15 08/07/24 09:15 08/07/24 06:42 08/07/24 06:42
Physical Exam
Exam
General: Well Developed, Well Nourished and No Apparent Distress
HEENT: Normocephalic and Anicteric
Respiratory: Clear
Cardiac: Regular Rhythm
GI: Soft, Non Tender, Non Distended and Other (mid abd scar)
Musculoskeletal: No Clubbing and No Cyanosis
Skin: Warm and Dry
Neuro: Awake, Alert and AO x 3
Psych: Calm
Results
WBC 6.2 10^3/uL (4.8-10.8) 08/07/24 06:35
Hgb 11.5 g/dL (13.0-18.0) L 08/07/24 06:35
Hct 33.1 % (39.0-52.0) L 08/07/24 06:35
MCV 87.8 fL (80.0-94.0) 08/07/24 06:35
Plt Count 110 10^3/uL (130-400) L D 08/07/24 06:35
Absolute Neuts (auto) 3.8 10^3/uL (1.4-6.5) 08/07/24 06:35
Sodium 139 mmol/L (135-145) 08/06/24 16:25
Potassium 4.4 mmol/L (3.5-5.1) 08/06/24 20:01
Chloride 105 mmol/L (98-107) 08/06/24 16:25
Carbon Dioxide 26 mmol/L (22-30) 08/06/24 16:25
BUN 35 mg/dl (9-20) H 08/06/24 16:25
Creatinine 1.1 mg/dL (0.7-1.3) 08/06/24 16:25
Calcium 8.8 mg/dl (8.4-10.2) 08/06/24 16:25
Total Bilirubin 0.8 mg/dl (0.2-1.3) 08/06/24 16:25
AST 18 U/L (17-59) 08/06/24 16:25
ALT 13 U/L (0-50) 08/06/24 16:25
Alkaline Phosphatase 87 U/L (38-126) 08/06/24 16:25
Lipase 74 U/L (23-300) 08/06/24 16:25
Diagnostic Image Results:
06/20/24 CT Abd/pel Without Iv Or Oral
1. Moderate hydronephrosis of transplant kidney at the left iliac fossa, worse as compared with the prior study. No ureteral filling defects identified at CT.
2. Post liver transplant.
3. Findings related to portal hypertension with splenomegaly and large number of dilated and tortuous varices in the left upper quadrant.
4. Small cysts and calculus of the solomon left kidney as seen previously.
5. Urinary bladder trabeculation, question chronic outlet obstruction or neurogenic bladder.
Prior GI Procedures:
EGD: prior to transplant
Colonoscopy: anabel Villalobos 06/2024- fair prep, hemorrhoids, stool in entire colon, diverticulosis, bx neg CVM and microscopic colitis.
Assessment / Plan
-
Pt is a 64yo with hx hep C cirrhosis with prior liver/kidney transplant at [facility] in 2021 on mycophenolate and tacrolimus, c-diff post transplant, hx Esophageal varices, prior stenting ? esophageal vs biliary, CAD with prior stenting, IDDM, DVT
with filter, BPH with prior TURP, ORIF hip, prior foot infection presents with diarrhea since May. he had recent prolonged admission 06/21- 07/05 with work up with colonoscopy, stool studies without etiology for diarrhea and was treated with
metamucil and Imodium. During visit stool fat neg, fecal calpro normal, and elastase 266 which ruled out pancreatic insufficiency. He was recommended OP follow up with transplant specialist to discuss possible Mycophenolate diarrhea which he has
not completed since discharge and last visit over 1 years ago. He now returns with continued loose stool. Last colonoscopy 06/2024- fair prep, hemorrhoids, stool in entire colon, diverticulosis, bx neg CVM and microscopic colitis. Pt is scheduled
GI follow up next week 08/14 11:30 am with Gloria Mesa.
-diarrhea
-hx liver/kidney transplant on chronic immunosuppression
-hx c-diff post transplant
-abnormal CT with moderate hydro of transplanted kidney worsening from prior stenting, cyst and calculus of solomon kidney, ? bladder outlet obstruction
-thrombocytopenia
-chronic hip pain
other med problems:
-hx prior EV with ? stent
-CAD with prior stenting
-IDDM
-hx DVT with prior filter
-BPH with TURP
PLAN:
etiology of diarrhea related to infection in setting of immunosuppression -- prior stool studies neg repeat pending to be sent, CMV neg on colonoscopy, neg microscopic colitis,
Mycophenolate related vs other
with some formed stool then loose check X ray to rule out overflow with Imodium use
await repeat stool cultures
I reviewed with for EGD/enteroscopy in AM to exclude any further SB infectious process
I stressed to pt will need to scheduled with transplant team -- if unable to get to hospital will need to request telehealth visit for eval of Mycophenolate related diarrhea
cont ADA diet, add low residue, low lactose to diet
limited Imodium to see volume of diarrhea -- reviewed with nursing to limit Imodium to only severe episodes
other issues with leg pain per medical team
I reviewed with patient after EGD/enteroscopy can be discharged if stable and due 08/14 follow up in office 11:30 to review testing completed during admission
reviewed with Dr. Groves
-
-
Thank you for consultation and allowing me to participate in the patient's care. Please call the government relations director GI physician during the after hours with any questions or concerns.
[2024-08-07] MEDS: TOPROL XL 12.5 MG PO (11:35)
--- NOTE | 2024-08-07 11:52 | CM ---
Addendum entered by Lynnette Granados 08/07/24 14:15:
Pt is not eligible for [facility] waiver
Addendum entered by Lynnette Granados 08/07/24 13:57:
Per PT eval, indep with no skilled needs
Bedside update to pt
Yelled at CM to leave his room as CM was making him upset
Discharge Disposition- home, no needs
Original Note:
CM met with pt bedside
Pt now residing in a RV at [address] [place] [address], [address]
He remains indep with use of his WW, drives+, car in parking lot
Hx at [facility]
His mailing address will remain his ex's address in [place]
Emergency contact updated to son/Buster [place] as prior listed contact/son Waldemar now
PT eval requested as pt not sure if he is able to care for self at home
Awaiting outcome
PCP- Geneva Lantigua
Rx- [facility]
Copy of prior dc paperwork from prior admission provided per his request
Discharge Disposition- TBD
[2024-08-07 12:19] LABS: Glucose - Point of Care 166 mg/dl (70-99)
[2024-08-07] MEDS: NOVOLOG FLEXPEN 3 UNITS SC ×2 (12:23→18:10)
[2024-08-07] MEDS: NOVOLOG FLEXPEN-LOW RESISTANCE 1 UNITS SC (12:23)
[2024-08-07 17:38] LABS: Glucose - Point of Care 255 mg/dl (70-99)
[2024-08-07] MEDS: NOVOLOG FLEXPEN-LOW RESISTANCE 3 UNITS SC (18:10)
--- NOTE | 2024-08-07 18:29 | PTCARENOTE ---
patient refusing to wear tele monitor. pt reports reasoning for not wearing monitor is because he is in pain and his BP will be high since the doctor will not order him appropriate pain medication. pt was offered lidocaine patch but he reports 'it
doesn't work. it's a waste' RN encouraged pt to try the patch and wear monitor and educated the importance of monitoring but he continued to refuse. MD aware of pt wanting different pain medication and refusing lidocaine patch and tele monitor.
[2024-08-07] MEDS: PROGRAF 3 MG PO (19:50)
[2024-08-07 21:45] LABS: Glucose - Point of Care 180 mg/dl (70-99)
[2024-08-07] MEDS: REQUIP 0.5 MG PO (21:58)
[2024-08-07] MEDS: LANTUS 0.24 UNITS SC (21:59)
[2024-08-08] VITALS (10 sets, daily range): BP systolic 94–151; BP diastolic 59–77; PULSE 71; O2SAT 100
[2024-08-08 06:04] LABS: Glucose - Point of Care 138 mg/dl (70-99)
--- NOTE | 2024-08-08 06:09 | PTCARENOTE ---
AAO x 3. VSS. NPO at midnight in anticipation for enteroscopy. Accuchecks q 6 hours. NSS running at 60 ml/hr. 9/10 back pain. x 1 dose oxy 5 mg given overnight. OOB with standby assist. Continent of bowel and bladder. Stool sample still needs to be
collected. All patient needs met. Bed in lowest position. Call prasad and personal belongings within reach.
[2024-08-08] MEDS: NOVOLOG FLEXPEN SC ×2 (07:34→12:06)
[2024-08-08 08:05] LABS: % Basophils 0.6 % (0-2); % Eosinophils 4.4 % (0-6); % Immature Granulocytes 0.6 % (0-0.5); % Lymphocytes 22.4 % (20.5-51.1); % Monocytes 8.8 % (1.7-9.3); % Neutrophils 63.2 % (42.2-75.2); Absolute Eosinophils 0.2 10^3/uL (0-0.7); Absolute Lymphocytes 1.2 10^3/uL (1.2-3.4); Absolute Monocytes 0.5 10^3/uL (0.1-0.6); Absolute Neutrophils 3.5 10^3/uL (1.4-6.5); Hematocrit 34.5 % (39.0-52.0); Hemoglobin 12.1 g/dL (13.0-18.0); Mean Corp Hgb Conc. 35.1 g/dL (33.0-37.0); Mean Corpuscular Hgb 30.3 pg (27.0-31.0); Mean Corpuscular Volume 86.5 fL (80.0-94.0); Mean Platelet Volume 10.5 fL (7.4-10.4); Nucleated Red Blood Cells % 0 % (-); Platelet Count 121 10^3/uL (130-400); Red Blood Cell Count 3.99 10^6/uL (4.70-6.10); Red Cell Dist. Width 13.4 % (11.5-14.5); White Blood Cell Count 5.5 10^3/uL (4.8-10.8)
[2024-08-08 08:39] LABS: Iron 80 ug/dl (49-181)
[2024-08-08] MEDS: NEURONTIN 300 MG PO (08:39)
[2024-08-08] MEDS: TOPROL XL PO (08:39)
[2024-08-08] MEDS: ASPIR LOW (ENTERIC COATED) 81 MG PO (08:40)
[2024-08-08] MEDS: METAMUCIL, KONSYL PO (08:40)
[2024-08-08] MEDS: MYFORTIC DELAYED REL. 180 MG PO (08:41)
[2024-08-08] MEDS: PROGRAF 3 MG PO (08:41)
[2024-08-08 08:50] LABS: Percent Saturation 31 % (20-50); Total Iron Binding Capacity 257 ug/dl (261-462)
--- NOTE | 2024-08-08 08:53 | W.PN.UPDATE ---
Addendum entered and electronically signed by Joesph Groves MD 08/08/24 13:18:
EGD:
- Normal esophagus.
- Gastritis. Biopsied.
- Normal examined duodenum. Biopsied.
- Normal examined jejunum. Biopsied.
Medically cleared for d/c. Case discussed with GI.
Total time spent on d/c = 32 min. This included today's physical exam, progress note, review of laboratory and diagnostic data, preparation of discharge documents and prescriptions, and discussions about the pt's hospital course and discharge plan
with the patient and other bio medical technician involved in the patient's care.
Original Note:
Update Note
Progress Note Update
I saw and evaluated the patient. I reviewed the resident�s note and agree with findings and plan as documented in the resident�s note.
Pt states no diarrhea since I saw him yesterday.
Gen: NAD, AAOx3.
Eyes: EOMI, PERRLA, no scleral icterus.
Neck: supple.
CV: remains RRR, +S1/S2, no m/r/g.
Resp: remains CTAB, no rales, wheezes, or rhonchi.
Abd: remains +BS, soft, NT, ND
Skin: No rashes.
Neuro: CN 2-12 intact, non-focal.
Psych: Normal mood and affect.
B/L LE U/S:
RLE:
- nonocclusive thrombus in the mid to distal anterior division of the peroneal vein
- occlusive thrombus in the posterior division of the peroneal vein.
- Remaining deep venous system is patent.
LLE:
- nonocclusive thrombus throughout the left femoral vein.
- The remaining deep venous system is patent.
Abdomen/Pelvis CT
1. Moderate hydronephrosis of transplant kidney at the left iliac fossa, worse as compared with the prior study. No ureteral filling defects identified at CT.
2. Post liver transplant.
3. Findings related to portal hypertension with splenomegaly and large number of dilated and tortuous varices in the left upper quadrant.
4. Small cysts and calculus of the alutiiq left kidney as seen previously.
5. Urinary bladder trabeculation, question chronic outlet obstruction or neurogenic bladder.'
Chronic diarrhea flare:
-with urgency and incontinence of feces
-h/o C Diff colitis
-Recent IP GI evaluation in June for the diarrhea and had a colonoscopy which was negative for CMV colitis
-Recent NEG C. difficile, Cryptosporidium, Giardia, Shigella, Campylobacter, and Salmonella Shigella
-h/o normal fecal studies: Stool fat normal, stool split fat normal, stool pancreatic elastase normal, stool calprotectin normal
-cont Metamucil/Imodium PRN
-s/p IVFs
-will send stool studies if able
-GI following. For enteroscopy with small bowel Bx today.
Other/chronic problems:
h/o renal tx, chronic hydronephrosis: cont Cellcept/Prograf
h/o cirrhosis (due to HCV) s/p OLT: with associated thrombocytopenia. cont Cellcept/Prograf.
Chronic normocytic anemia: Hb stable
B/L LE DVTs, chronic, occlusive and non occlusive: with patent collaterals. h/o IVC placement. High risk AC candidate.
CAD s/p stent: cont ASA. Start Toprol XL. 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 Pt should discuss starting statin with hydrodynamicist.
DM2: a1c 8.2%, cont Lantus/premeal Novolog, SSI/accuchecks
Known Lumbosacral radiculopathy: to consider TERESSA (would be outpt), PT/OT
Chronic Right hip pain: cont Neurontin
FULL/Heparin
--- NOTE | 2024-08-08 10:44 | W.PN.HOSP.TC ---
Today's Communication/Plan
-
- f/u with GI
Assessment / Plan
Assessment / Plan
Chronic recurrent watery diarrhea of unknown origin:
- Patient is afebrile, and WBC count is normal
- C diff and stool cultures are ordered
- Previous fecal studies normal, last admission negative for C diff, cryptosporidium, Giardia, shigella, Campylobacter, salmonella, shigella
- Continue on Imodium PRN which has helped relieve his diarrhea
- Continue on Metamucil
- Monitor bowel movements
- GI following, patient will have enteroscopy with small bowel biopsy today.
Bilateral Lower extremity DVT:
- Confirmed on peripheral vascular ultrasound on 08/06/24
- Vitals are stable
- Patient has previous history of DVT with IVC filter placement
- Poor candidate for anticoagulation
- Continue on heparin
- Heme onc recc half-way IVC filter
Cirrhosis of liver due to chronic hepatitis C infection s/p liver transplant:
- Continue on mycophenolate/ tacrolimus
- Monitor CBC
- GI consulted
Anemia of chronic disease secondary to liver transplant/ cirrhosis:
- Hgb is 12.1 and stable
- TIBC is low pointing towards anemia of chronic disease.
Insulin dependant diabetes mellitus:
- Most recent A1c is 6.6
- Today accucheck glucose level is 138
- Continue daily AccuCheck
- Continue insulin aspart and glargine home dose.
Chronic right hip pain:
- Using pain meds for previous chronic intertrochanteric fracture right femur with hip screw in place
- Continue with gabapentin/ acetaminophen is needed
Chronic back pain
Previous hx of lumbosacral radiculopathy:
- Continue gabapentin
- PT/OT
DVT ppx- heparin
Full code
Anticipated Discharge: 24 - 48 hours
Subjective/Interval History
-
Date of Service: August 08, 2024
Complaining of lower back pain, numbness in both his legs, and has had no episodes of diarrhea.
Objective Data
-
Labs:
Laboratory Results
08/08/24
06:58
WBC 5.5
Hgb 12.1 L
Hct 34.5 L
Plt Count 121 L
Vital Signs:
Vital Signs
Temp Pulse Resp BP Pulse Ox
98.5 F 78 16 108/68 100
08/08/24 07:12 08/08/24 07:12 08/08/24 07:12 08/08/24 07:12 08/08/24 07:12
I&O
08/07/24 08/08/24 08/09/24
06:59 06:59 06:59
Intake Total 2270 / 2270
Output Total 2745 / 2745
Balance -475 / -475
Review of Systems
-
History Source: Patient
All other systems: Reviewed and negative
Physical Exam
-
Respiratory: Clear to Auscultation
Cardiac: Regular Rhythm and S1/S2
GI: Soft, Nontender and Normal Bowel Sounds
Skin: Warm and Dry
Neuro: Awake, Alert, Oriented, AO x 3 and Other (numbness in both lower extremities bilaterally )
Psych: Calm
Data Reviewed
-
Labs: Labs Reviewed by me and Discussed with Physician
[2024-08-08 11:01] LABS: Ferritin 44.1 ng/ml (17.9-464.0)
[2024-08-08 11:47] LABS: Glucose - Point of Care 87 mg/dl (70-99)
[2024-08-08 13:05] LABS: Glucose - Point of Care 90 mg/dl (70-99)
--- NOTE | 2024-08-08 13:47 | W.PN.UPDATE ---
Update Note
Progress Note Update
Enteroscopy:
gastritis mult bx
normal duodenum/jejunum, multiple bx
outpatient f/u 08/12 will sign off
--- NOTE | 2024-08-08 14:04 | CM ---
CM reviewed chart, patient jose maria bedside, discussed plan for discharge today. Patient reports he drove himself here, will drive self home. Patient reports he would prefer to stay one more day, CM discussed right to appeal- IMM verbally reviewed,
declines need for copy. Patient reports he does not wish to appeal discharge. CM will continue to follow for all discharge planning needs.
Plan; home no needs.
--- NOTE | 2024-08-08 15:09 | PTOTSP ---
pt currently requires supervision to no assistance to complete simple ADLs, functional transfers, ambulation. pt has no concerns to return to RV. will sign off, no acute OT needs identified at this time.
[2024-08-08 16:42] LABS: Glucose - Point of Care 78 mg/dl (70-99)
[2024-08-08] MEDS: NOVOLOG FLEXPEN 3 UNITS SC (16:43)
--- NOTE | 2024-08-08 16:44 | W.DCSUMMARY ---
Discharge Summary
Discharge Data
Date of Admission: 08/06/24
Date of Discharge: 08/08/24
-
Pending Results: No
Hospital Course
Discharging Physician : Dr. Joesph Groves and Dr. Alton Nuñez
Disposition : Home
Primary care physician : Dr. Geneva Lantigua
Principal Discharge diagnosis : Chronic recurrent watery of unknown origin, Bilateral lower extremity DVT
Chronic Discharge diagnosis : Liver cirrhosis due to chronic hepatitis C status post liver transplant, anemia of chronic disease, Insulin dependant diabetes mellitus, Chronic right hip pain, chronic back pain, CAD
Hospital Course : 64-year-old male with a history of chronic diarrhea, left kidney transplant, liver transplant, portal hypertension with splenomegaly, insulin-dependent beta-blockers, hep C, anemia, thrombocytopenia, DVT post IVF filter presented
for multiple bouts of watery diarrhea, )which he had recently been admitted for into [facility] in June), pain in his legs, chronic back pain.
Problem #1: Chronic recurrent watery diarrhea of unknown origin with urgency and incontinence of feces---patient is afebrile and WBC count has been normal throughout the course of his hospital stay. No odynophagia, GERD, nausea, vomiting, abdominal
pain, constipation, bloody stools. Last colonoscopy was in June 2024. His diarrhea had subsided to only 1-2 episodes a day after first day of admission and towards the end of his hospital stay patient had 3 formed bowel movements. Had a recent
negative result during his admission in June of this year for Clostridium difficile, Cryptosporidium, Giardia, Shigella, Campylobacter, Salmonella, Shigella. He also has a history of normal fecal studies on his previous admission in June of this
year. A recent inpatient GI evaluation in June of this year showed that he was negative for CMV colitis. Patient is to continue Metamucil and Imodium as needed on discharge. Stool studies will need to be sent out. GI consulted and suspect that
this might be related to his use of mycophenolate which he has been using since he is a liver transplant patient. He also underwent upper gastrointestinal endoscopy and findings were normal esophagus, normal duodenum, jejunum, gastritis all of
which which were biopsied. Currently awaiting pathology results from these biopsies. He has an outpatient follow-up scheduled for 08/14/24.
Problem #2: Bilateral lower extremity DVT---confirmed on peripheral vascular ultrasound on 08/06/2024, nonocclusive thrombus in mid to distal anterior division of the peroneal vein, occlusive thrombus in posterior division of peroneal vein,
nonocclusive thrombus throughout the left femoral vein. Vitals are stable throughout course of hospital stay. Patient has had a previous history of DVT with IVC filter placement. He is a poor candidate for anticoagulation. Hematology oncology
suggested IVC filter for long-term DVT management and ordered heparin prophylactic dosage.
Problem #3: Cirrhosis of liver due to chronic hepatitis C infection status post liver transplant---continue on mycophenolate/tacrolimus. GI was consulted. Recommended patient to discuss mycophenolate diarrhea with his transplant specialist who he
has not followed up with since discharge and last visit was over 1 year ago. Patient will need to follow-up with his transplant specialist doctors on discharge.
Problem #4: Anemia of chronic disease---hemoglobin is 12.1 and stable on discharge. No active signs of bleeding. Iron is normal and TIBC is low pointing towards his diagnosis. CBC in 1 week with PCP.
Problem #5: Insulin-dependent diabetes mellitus---most recent A1c is 8.2 and on discharge glucose level is 138 on Accu-Chek. Well-controlled. Patient had daily AccuCheck and was on sliding scale throughout course of hospital stay. Continue his
home dose insulin aspart and glargine. CMP in 1 week with PCP.
Problem #6: Chronic right hip pain---Per hip x-ray on previous admission, Chronic healed intertrochanteric fracture right proximal femur with a dynamic hip screw in place, unremarkable. Per PDMP last prescription was November 2023 for oxycodone 5 Mg
every 6 hourly as needed. IV diluted 1 mg given in the ER on admission. Pain is managed with Tylenol and patient Roxicodone is discontinued. Advised patient to see pain specialist after discharge.
Problem #7: Coronary artery disease status post stent---continued on at home aspirin, started on Toprol XL which he is to take on discharge, patient not on statin and to discuss starting statin with outpatient GI. CMP in 1 week with PCP.
Problem #8: Lumbosacral radiculopathy---pain managed on gabapentin. PT OT consulted. Patient is considering epidural steroid injections, to be done outpatient.
Important imaging findings :
Peripheral vascular ultrasound 08/06/2024:
-IMPRESSION:
CRITICAL VALUE:
On the right, there is nonocclusive thrombus in the mid to distal anterior division of the peroneal vein, and occlusive thrombus in the posterior division of the peroneal vein. Remaining deep venous system is patent.
On the left, there is nonocclusive thrombus throughout the left femoral vein. The remaining deep venous system is patent.
Abdominal x-ray/:
IMPRESSION:
Nonobstructive bowel gas pattern.
Moderate colonic stool burden.
Procedure findings :
Upper GI endoscope he on 08/08/2024:
Findings:
The examined esophagus was normal.
Patchy mild inflammation characterized by erythema was found in the
gastric body and in the gastric antrum. Biopsies were taken with a cold
forceps for histology.
The examined duodenum was normal. Biopsies were taken with a cold
forceps for histology.
The examined visualized jejunum was normal. Biopsies were taken with a
cold forceps for histology.
Impression: - Normal esophagus.
- Gastritis. Biopsied.
- Normal examined duodenum. Biopsied.
- Normal examined jejunum. Biopsied.
Recommendation: - Await pathology results.
Discharge Plan
-
Patient Disposition: Home (Routine Discharge)
Discharge Diagnosis/Procedures: Chronic diarrhea
Condition: Good
Diet: Diabetic, Carb Controlled
Activity: As tolerated
Driving Restrictions: As prior to admission
Referrals:
Geneva Lantigua, [Family Provider] - in less than 1 week
Gloria Mesa PA-C [Specified Professional Personl] - 08/14/24 11:30 am (follow up with Gi as scheduled )
Prescriptions:
New
metoprolol succinate 25 mg Tablet Extended Release 24 Hr
12.5 mg PO DAILY Qty: 15 0RF
Continued
aspirin 81 mg Tablet,Delayed Release (Dr/Ec)
81 mg PO DAILY
loperamide 2 mg Capsule
2 mg PO Q4HPRN PRN (Reason: diarrhea) 30 Days Qty: 90 0RF
insulin aspart U-100 100 unit/mL (3 mL) Insulin Pen
3 unit SC AC 30 Days Qty: 2.7 0RF
ropinirole 0.25 mg Tablet
0.5 mg PO HS 30 Days Qty: 60 0RF
tacrolimus 1 mg Capsule
3 mg PO Q12H@799,1999 Qty: 180 1RF
mycophenolate sodium 180 mg Tablet,Delayed Release (Dr/Ec)
180 mg PO Q12H@ Qty: 60 1RF
gabapentin 100 mg capsule
300 mg PO BID
insulin glargine [Lantus Solostar U-100 Insulin] 100 unit/mL (3 mL) insulin pen
24 unit SC HS
Discharge Orders:
Discharge Patient (As Directed); Ordered 08/08/24
Ordered By: Joesph Groves
Discharge Date and Time
Discharge Date/Time: 08/08/24 17:43
Print Language: LITHUANIAN
== END 2024-08-08 17:43 | disposition home or self-care (01) | DRG 300 ==
LOC: 4 WEST ACU 22:34
PROVIDERS: Emergency Medicine; Nurse Practitioner; Registered Nurse; ADMITTING PHYSICIAN Internal Medicine; ATTENDING PHYSICIAN Internal Medicine; CONSULT PHYSICIAN Internal Medicine; EMERGENCY PHYSICIAN Student in an Organized Health Care Education/Training Program; FAMILY PHYSICIAN Family Medicine; OTHER PHYSICIAN Internal Medicine Hematology & Oncology
PROC: 0DB68ZX Excision of Stomach, Via Natural or Artificial Opening Endoscopic, Diagnostic (ICD-10-PCS; 2024-08-08)
DX: I82.451 Acute embolism and thrombosis of right peroneal vein (principal); D84.821 Immunodeficiency due to drugs; Z59.00 Homelessness unspecified; Z94.4 Liver transplant status; G89.29 Other chronic pain; M54.17 Radiculopathy, lumbosacral region; B18.2 Chronic viral hepatitis C; D63.8 Anemia in other chronic diseases classified elsewhere; K74.60 Unspecified cirrhosis of liver; E11.649 Type 2 diabetes mellitus with hypoglycemia without coma; Z79.4 Long term (current) use of insulin; Z87.891 Personal history of nicotine dependence; Z79.82 Long term (current) use of aspirin; Z79.899 Other long term (current) drug therapy; K52.9 Noninfective gastroenteritis and colitis, unspecified; K29.70 Gastritis, unspecified, without bleeding; I82.512 Chronic embolism and thrombosis of left femoral vein
CPT/HCPCS: 88305; 74018; 80053; 80197; 80306; 81003; 81015; 82728; 82962; 83036; 83540; 83550; 83690; 83880; 84132; 85025; 88342; 93005; 93970; 97161; 97165

== ENCOUNTER 2025-01-09 22:06 | Inpatient (IN) | payer MEDICARE, OTHER, SELFPAY ==
[2025-01-09 15:06] VITALS: BP 145/80
[2025-01-09 15:27] LABS: Hematocrit 32.0 % (39.0-52.0); Hemoglobin 11.8 g/dL (13.0-18.0); Mean Corp Hgb Conc. 36.9 g/dL (33.0-37.0); Mean Corpuscular Volume 83.8 fL (80.0-94.0); Nucleated Red Blood Cells % 0 % (-); Platelet Count 117 10^3/uL (130-400); Red Cell Dist. Width 14.4 % (11.5-14.5)
[2025-01-09 15:55] LABS: ALT (SGPT) 18 U/L (0-50); AST (SGOT) 18 U/L (17-59); Albumin 3.6 g/dl (3.5-5.0); Alkaline Phosphatase 132 U/L (38-126); Blood Urea Nitrogen 23 mg/dl (9-20); Calcium 8.2 mg/dl (8.4-10.2); Carbon Dioxide 24 mmol/L (22-30); Chloride 99 mmol/L (98-107); Glucose 513 mg/dl (70-99); Lipase 738 U/L (23-300); Potassium 3.9 mmol/L (3.5-5.1); Sodium 129 mmol/L (135-145); Total Protein 6.2 g/dl (6.3-8.2); eGFR > 60.00
[2025-01-09] MEDS: NSS 1000 IV ×2 (17:51→23:54)
--- NOTE | 2025-01-09 17:51 | ED.GENMED ---
History of Present Illness
General
Chief Complaint: Abdominal Symptoms
Source: patient and records
Exam Limitations: none
Time Seen by Provider: 01/09/25 17:10
Nursing documentation reviewed up to this point in time: agreed with
History of Present Illness
History of Present Illness:
64-year-old male with history as noted significant for insulin-dependent diabetes, CAD, both liver and renal transplants, DVT status post IVC filter who presents to the emergency department for evaluation of abdominal pain, diarrhea. Patient
reports symptoms started a few days ago and have been constant since that time. He reports diffuse abdominal pain worse in the lower abdomen. He reports associated liquid nonbloody diarrhea. He has had nausea but no vomiting. No fever or chills.
He says he has had some chronic mild urinary incontinence since prior prostate biopsy but no acute urinary symptoms. He does complain of some mild substernal chest discomfort that started today as well. He says he has a mild headache and feels
mildly lightheaded. In addition to all of the above he says that he noticed that he has a small wound on the lateral part of his right ankle/lower leg that he attributes to an injury in the bathtub. He noticed that it is a bit red recently. He
has apparently a history of drug use but denies any active drug use and denies any alcohol use. He is an ex smoker but denies active nicotine.
Of note patient was found to be markedly hyperglycemic here during his triage assessment. He is an insulin-dependent diabetic. He says that he uses 10 units of insulin at mealtime but does not take any long-acting insulin�he says that it was not
released to him by the pharmacy when he last refilled his medications.
Past History
Past History
ED Past Medical History: IDDM, Renal failure and Other (BPH, hepatitis C)
ED Past Surgical History: Cardiac (For cardiac stents 2021), Urological and Other (Liver transplant, kidney transplant 2021)
Social History
Tobacco: Non-smoker
Alcohol: None
Drug: Former user
Personal: Single
Living: homeless
Review of Systems
Review of Systems
All Other Systems: ROS reviewed and negative except as documented in HPI and ROS
Constitutional: Reports fatigue; Denies fever or chills
Respiratory: Denies trouble breathing
Cardiac: Reports chest pain; Denies palpitations
ABD/GI: Reports abdominal pain, nausea and diarrhea; Denies vomiting or bloody stools
: Denies dysuria or flank pain
Musculoskeletal: Denies neck pain or back pain
Neurological: Reports dizzy and headache; Denies weakness or numbness
Phy Exam
Physical Exam
Physical Exam:
General: Awake, alert, oriented x3; no acute distress
Head: Normocephalic, atraumatic
Eyes: Conjunctiva normal, sclera anicteric
Throat: Airway intact, somewhat dry mucous membranes
Neck: Trachea midline, supple without meningismus
Lungs: Clear to auscultation bilaterally, no wheezing, rales, rhonchi
Heart: Regular rate and rhythm, systolic murmur noted
Abd: Soft, non distended, mild diffuse tenderness with no peritoneal signs
Neuro: Grossly intact
Skin: Warm and dry
Extremities: No edema in extremities, equal pulses in all extremities; on exam of the right lower leg he has a very small approximately 2 cm diameter wound with central eschar and small rim of erythema, no drainage/purulence noted
Scores
Heart Failure Risk
Heart Failure Risk Score: Not Applicable
Heart Score for Chest Pain Patients
STEMI patient?: Not applicable
Withdrawal Assessment of Alcohol
Withdrawal Assessment Completed?: Not applicable
Course
Orders/Labs/Results
Orders:
Orders
01/09/25 14:57
EKG [Electrocardiogram (*1)] Urgent
Reason for Study: Chest Pain
EKG- Treatment ONCE
01/09/25 15:19
Complete Blood Count/With Diff Urgent
Comprehensive Metabolic Panel Urgent
Lipase Urgent
01/09/25 17:11
CT Abd/pelvis W Iv Cont Urgent
Comment:
Reason For Exam: lower abd pain, diarrhea
0.9% Sodium Chloride 1000 ml [Nss] 1,000 ml IV BOLUS
01/09/25 17:50
Acetone [B-Hydroxybutyrate] Urgent
Venous Blood Gas Urgent
%Oxygen/Room Air: 97
01/09/25 18:01
Bedside Glucose- Treatment Q1H
Insulin Aspart [NOVOLOG vial] 10 units SC NOW STA
01/09/25 18:20
Troponin I Urgent
Urinalysis Reflex To Culture Urgent
Date Specimen was Collected: 01/09/25
Time Specimen was Collected: 18:15
Urine Microscopic Reflex Cult Urgent
01/09/25 18:45
Morphine Sulfate 4 mg IV NOW STA
01/09/25 20:38
CefTRIAXone [Rocephin] 1,000 mg IV NOW STA
MetroNIDAZOLE IVPB 500 mg IVPB NOW MetroNIDAZOLE 500 MG/100 ML [Flagyl 500 mg] 100 ml IV NOW
Abnormal Lab Results
01/09/25 01/09/25 01/09/25
15:19 17:50 18:20
RBC 3.82 L 10^6/uL
(4.70-6.10)
Hgb 11.8 L g/dL
(13.0-18.0)
Hct 32.0 L %
(39.0-52.0)
Plt Count 117 L 10^3/uL
(130-400)
Abs Immat Gran (auto) 0.1 H 10^3/uL
(0-0.05)
Absolute Lymphs (auto) 1.0 L 10^3/uL
(1.2-3.4)
Immature Gran % 0.9 H %
(0-0.5)
Lymphocytes % 16.5 L %
(20.5-51.1)
VBG pO2 62 H mmHg
(30-50)
Sodium 129 L mmol/L
(135-145)
BUN 23 H mg/dl
(9-20)
Glucose 513 H* mg/dl
(70-99)
Calcium 8.2 L mg/dl
(8.4-10.2)
Alkaline Phosphatase 132 H U/L
(38-126)
Total Protein 6.2 L g/dl
(6.3-8.2)
Lipase 738 H U/L
(23-300)
Ur Occult Blood Reflex 4+ A
(Negative)
Urine RBC 16-20 A /HPF
(0-2)
Urine Bacteria (Reflex) Few A
(Negative)
Urine Glucose 4+ A
(Negative)
Urine Albumin (Reflex) 3+ A
(Neg - Trace)
B-Hydroxybutyrate 0.71 H mmol/L
(0.02-0.27)
POC Glucose
01/09/25
20:09
RBC
Hgb
Hct
Plt Count
Abs Immat Gran (auto)
Absolute Lymphs (auto)
Immature Gran %
Lymphocytes %
VBG pO2
Sodium
BUN
Glucose
Calcium
Alkaline Phosphatase
Total Protein
Lipase
Ur Occult Blood Reflex
Urine RBC
Urine Bacteria (Reflex)
Urine Glucose
Urine Albumin (Reflex)
B-Hydroxybutyrate
POC Glucose 262 H mg/dl
(70-99)
01/09/25 15:19
01/09/25 15:19
Vital Signs
Initial and Last Documented VS:
Initial Vital Signs
Temp Pulse Resp BP Pulse Ox
36.6 C 85 18 145/80 97
01/09/25 15:06 01/09/25 15:06 01/09/25 15:06 01/09/25 15:06 01/09/25 15:06
Last Documented Vital Signs
Temp Pulse Resp BP Pulse Ox
36.7 C 76 18 121/76 98
01/09/25 20:15 01/09/25 20:15 01/09/25 20:15 01/09/25 20:15 01/09/25 20:15
MDM/Problems Addressed
Differential Diagnosis Includes:
Abdominal pain: Pancreatitis, gastritis, cholecystitis, colitis, enteritis, DKA
MDM/Problems Addressed:
64-year-old male presents with multiple issues but chiefly complaining of abdominal pain with diarrhea. He is also complaining of mild headache and chest discomfort, lightheadedness. Finally complaining of a wound on his right leg that looks red.
He is mildly hypertensive but has otherwise acceptable vital signs. He had lab work sent in triage including a CBC which shows stable anemia without leukocytosis. He has stable mild thrombocytopenia. His chemistry shows pseudohyponatremia with a
glucose of 513. Renal function is acceptable. No acidosis�nothing to suggest DKA. His lipase is elevated at 738, normal T. bili and transaminases. Added acetone level, urinalysis, VBG for completeness. Check CT abdomen and pelvis. EKG shows
sinus rhythm�given chest discomfort and cardiac history will check troponin but low suspicion for ACS. Will provide IV fluids. Provide some subcutaneous insulin. Monitor very closely reassess after the above.
VBG shows no acidosis, beta hydroxybutyrate not significantly elevated. Glucose improving with insulin and fluids. His CT shows multiple findings�most notably he has a mild diverticulitis. Will plan to treat with antibiotics�patient continues to
complain of significant pain. He has poor access to follow-up care has been living in a hotel. Will monitor glucose, treat with IV antibiotics for diverticulitis�as well as will cover him for what is likely a mild right leg cellulitis. Discussed
case with hospitalist.
Chronic conditions affecting care:
Insulin-dependent diabetes, organ transplants, cardiac
*Radiology
Radiology exam reviewed: radiology read reviewed
*Pulse Oximetry
SaO2: 97
Oxygen Mode of Delivery: Room air
Patient hypoxic: no (97%)
*EKG
Interpreted by ED Provider?: Yes
Heart Rate: 83
Rate: normal
Rhythm: sinus
[place]: normal axis
Interval: normal interval
QRS Pattern: normal QRS
Ischemia: no ischemia
*Critical Care Note
Total Time (30-74mins, 75-104mins- exclusive of procedures): Not Applicable
Data Reviewed
Review of Other/Old Records Reveals: Labs, Records and Discharge Summary
Source: patient and records
Patient Management
Social determinants of health affecting care: Living situation (Lives in a hotel) and Poor outpatient follow-up (Poor outpatient [id number] not had access to his long-acting insulin)
Discussion with other providers: Hospitalist (Discussed with hospitalist)
Escalation/DeEscalation of care consider admission/obs:
Admission indicate
ED Attending Note
-
Portions of this chart may have been created with voice recognition software.� Occasional wrong word or��sound alike� substitutions may have occurred due to the inherent limitations of voice recognition software.
Discharge Plan
Departure
Patient Disposition: Admit
Date of Disposition: 01/09/25
Time of Disposition: 20:40
Admit to doctor: Aram
Presentation/result/management discussed w/ accepting MD/DO: Hospitalist
Discharge Problem:
Diverticulitis, Hyperglycemia, Cellulitis
Prescriptions:
No Action
aspirin 81 mg Tablet,Delayed Release (Dr/Ec)
81 mg PO DAILY
loperamide 2 mg Capsule
2 mg PO Q4HPRN PRN (Reason: diarrhea) 30 Days Qty: 90 0RF
insulin aspart U-100 100 unit/mL (3 mL) Insulin Pen
3 unit SC AC 30 Days Qty: 2.7 0RF
ropinirole 0.25 mg Tablet
0.5 mg PO HS 30 Days Qty: 60 0RF
tacrolimus 1 mg Capsule
3 mg PO Q12H@799,1999 Qty: 180 1RF
mycophenolate sodium 180 mg Tablet,Delayed Release (Dr/Ec)
180 mg PO Q12H@799,1999 Qty: 60 1RF
gabapentin 100 mg capsule
300 mg PO BID
insulin glargine [Lantus Solostar U-100 Insulin] 100 unit/mL (3 mL) insulin pen
24 unit SC HS
metoprolol succinate 25 mg Tablet Extended Release 24 Hr
12.5 mg PO DAILY Qty: 15 0RF
Referrals:
UNKNOWN - PT DOES,NOT KNOW [Unknown Provider]
Interventions
Interventions:
*Risk Screen - Suicide Last Done: 01/09/25 15:10
*General Assessment Last Done: 01/09/25 15:10
*Neglect/Abuse Screening Last Done: 01/09/25 15:10
*ED- Fall Risk Assessment Last Done: 01/09/25 17:02
*ED COVID-19 Vaccine History Last Done: 01/09/25 15:10
*ED Influenza Vaccine History Last Done: 01/09/25 15:10
WF-Ymakzp-Tuiejnqnqg Assessment Last Done: 01/09/25 20:15
ED- Cardiac Assessment Last Done: 01/09/25 20:16
Discharge Date and Time
Print Language: BENINESE
[2025-01-09 18:09] LABS: Venous Blood Gas B.E. -1.2 mmol/L (-4 to +4); Venous Blood Gas O2 Sat % 91.9 %
[2025-01-09 18:37] LABS: Urine Character Clear (Clear)
[2025-01-09] MEDS: NOVOLOG vial 10 UNITS SC (18:43)
[2025-01-09] MEDS: MORPHINE SULFATE 4 MG IV (18:47)
[2025-01-09 18:52] LABS: Urine Squamous Cell 0-2 /LPF (Few)
[2025-01-09 18:53] LABS: Troponin I 0.016 ng/ml; Urine Red Blood Cell 16-20 /HPF (0-2); Urine White Cell 0-2 /HPF (0-5)
[2025-01-09 20:10] LABS: Glucose - Point of Care 262 mg/dl (70-99)
[2025-01-09 20:15] VITALS: BP 121/76
[2025-01-09] MEDS: FLAGYL 500 MG 100 IV (20:57)
[2025-01-09] MEDS: ROCEPHIN 1000 MG IV (20:57)
--- NOTE | 2025-01-09 21:46 | HPS.HSE ---
Addendum entered and electronically signed by Hamilton Weinstein MD 01/09/25 21:49:
Check stool studies if able.
Original Note:
Family Physician
-
Family Physician: * NONE
Chief Complaint
-
abdominal pain
History of Present Illness
64-year-old male past medical history of liver cirrhosis secondary to chronic hepatitis C status post liver transplant/kidney transplant, anemia of chronic disease, diabetes, chronic right hip pain, chronic back pain, CAD status post stents,
bilateral lower extremity DVT with IVC filter, BPH status post TURP, prior drug use, former smoker, presenting with abdominal pain and diarrhea. Symptoms started 4 ago have been constant since then. He has diffuse abdominal pain worse in the lower
abdomen. He has nausea without vomiting. No fevers or chills. He has chronic mild urine incontinence since prior prostate biopsy but no acute urinary symptoms.
He did have diarrhea but took a medicine to stop the diarrhea and did not have any diarrhea today.
He did complain of some substernal chest discomfort today. He has mild headache and feels mildly lightheaded. He states that he has a cerebral aneurysm and supposed to have an outpatient MRI of the brain to evaluate for this.
He complains of a small wound on the lateral part of his right ankle/lower leg with surrounding redness and pain which he thinks is from the dirty water in the hotel rubbing up against the leg. He denies any injury.
He has been taking his Premeal insulin but has not taken his nighttime Lantus in a month due to pharmacy not giving it to him.
He denies smoking or alcohol use.
Medical History
Past Medical History
Past Medical History: Reports Other (liver cirrhosis secondary to chronic hepatitis C status post liver transplant/kidney transplant, anemia of chronic disease, diabetes, chronic right hip pain, chronic back pain, CAD status post stents, bilateral
lower extremity DVT with IVC filter, BPH status post TURP, prior drug use, former smoker,)
Past Surgical History: Reports Other ( Cardiac (For cardiac stents 2021), Urological and Other (Liver transplant, kidney transplant 2021))
Social History
Tobacco: Former Smoker
Alcohol: None
Drug: None
Family History
Family History: Not pertinent
Allergies / Home Medications
Allergies reflects when Allergies were last updated in [email or web address].
Home Medications with original date entered in [email or web address]
Allergy/Medication List:
Allergies
Allergy/AdvReac Type Severity Reaction Status Date / Time
No Known Allergies Allergy Verified 01/09/25 15:11
Home Medications
aspirin 81 mg tablet,delayed release 81 mg PO DAILY Blood Clot Prevention/Tx 08/15/23
insulin aspart U-100 100 unit/mL (3 mL) subcutaneous pen 3 unit (0.03 mL) SC AC Diabetes 1 month #2.7 mL 06/30/24
loperamide 2 mg capsule 2 mg PO Q4HPRN PRN diarrhea 1 month #90 caps 06/30/24
ropinirole 0.25 mg tablet 0.5 mg (2 x 0.25 mg) PO HS restless legs 1 month #60 tabs 06/30/24
mycophenolate sodium 180 mg tablet,delayed release 180 mg PO Q12H@0800,1999 Kidney transplant #60 tabs 07/08/24
tacrolimus 1 mg capsule, immediate-release 3 mg (3 x 1 mg) PO Q12H@0800,1999 kidney transplant #180 caps 07/08/24
gabapentin 100 mg capsule 300 mg PO BID 08/06/24
insulin glargine 100 unit/mL (3 mL) subcutaneous pen (Lantus Solostar U-100 Insulin) 24 unit SC HS Diabetes 08/06/24
metoprolol succinate 25 mg tablet,extended release 24 hr 12.5 mg (1/2 x 25 mg) PO DAILY #15 tabs 08/08/24
Review of Systems
-
Constitutional: Reports No Symptoms
EENT: Reports No Symptoms
Respiratory: Reports No Symptoms
Cardiac: Reports No Symptoms
Abdomen/GI: Reports See HPI
: Reports No Symptoms
Musculoskeletal: Reports No Symptoms
Skin: Reports No Symptoms
Neurological: Reports No Symptoms
Endocrine: Reports No Symptoms
Hematologic/Lymphatic: Reports No Symptoms
Psych: Reports No Symptoms
Physical Exam
Vital Signs
Vital Signs
Temp Pulse Resp BP Pulse Ox
98.1 F 76 18 121/76 98
01/09/25 20:15 01/09/25 20:15 01/09/25 20:15 01/09/25 20:15 01/09/25 20:15
Physical Exam
General: Well Developed, Well Nourished and No Apparent Distress
HEENT: NormoCephalic, Moist mucous membranes and Atraumatic
Respiratory: Clear
Cardiac: S1/S2 and Regular Rhythm; No Murmur or Rub
GI: Soft, Non Distended, Normal Bowel Sounds and Tender (diffusely ); No Organomegaly
Rectal: Deferred by Provider
Musculoskeletal: No Clubbing, No Cyanosis and No Edema
Skin: No Rash
Neuro: Nonfocal/grossly intact
Laboratory Results
-
01/09/25 15:19
01/09/25 15:19
Laboratory Results
Total Bilirubin 1.2 mg/dl (0.2-1.3) 01/09/25 15:19
AST 18 U/L (17-59) 01/09/25 15:19
ALT 18 U/L (0-50) 01/09/25 15:19
Alkaline Phosphatase 132 U/L (38-126) H 01/09/25 15:19
Troponin I 0.016 ng/ml 01/09/25 18:20
Lipase 738 U/L (23-300) H 01/09/25 15:19
Data Reviewed
-
Lab Data: Labs Reviewed by me
Old Records: Reviewed
Impression/Plan
-
IMPRESSION:
PLAN:
# Acute proctocolitis/diverticulitis
-CT abdomen pelvis shows mild rectosigmoid wall thickening, possibly related to underdistention, clinical correlation recommended to exclude possibility proctocolitis, mild diverticulosis, possible mild diverticulitis at the junction of the distal
descending colon proximal sigmoid colon, mild to moderate colonic fecal burden, central lucency of the prostate gland suggesting a TURP defect versus central gland prostatic cyst
- N.p.o.
- IV fluids given
- Zosyn
- Dilaudid for pain
- Hold antidiarrheal medication
# Cellulitis/wound right lower extremity
- Zosyn
# Hyperglycemia likely secondary to infection/insulin noncompliance
# Type 2 diabetes
-Blood sugar 513
- No acidosis or anion gap
- Given 10 units of NovoLog with improvement to 262
- Decrease Lantus from 24 to 12 units while patient with nausea and not tolerating p.o.
-Insulin sliding scale
# Chronic thrombocytopenia secondary to cirrhosis
- Stable
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
- Continue tacrolimus, mycophenolate
Anemia of chronic disease
- Hemoglobin stable at 11.8
Chronic right hip pain
- Continue gabapentin
Chronic back pain
CAD status post stents
- Continue metoprolol
- Continue aspirin
Bilateral lower extremity DVT with IVC filter
BPH status post TURP
Prior drug use
Former smoker
Restless leg syndrome
-continue ropinirole
Full code
DVT prophylaxis�heparin
N.p.o.
[2025-01-09 23:20] VITALS: BP 147/80; BMI 25.3
[2025-01-09] MEDS: DILAUDID 0.5 MG IV (23:54)
[2025-01-09] MEDS: ZOSYN 50 IV (23:55)
[2025-01-10] MEDS: DILAUDID 0.5 MG IV ×4 (03:56→20:20)
[2025-01-10] MEDS: ZOSYN 50 IV ×3 (05:51→18:09)
[2025-01-10 06:26] LABS: Hematocrit 32.2 % (39.0-52.0); Hemoglobin 11.4 g/dL (13.0-18.0); Mean Corp Hgb Conc. 35.4 g/dL (33.0-37.0); Mean Corpuscular Volume 84.5 fL (80.0-94.0); Nucleated Red Blood Cells % 0 % (-); Platelet Count 110 10^3/uL (130-400); Red Cell Dist. Width 14.6 % (11.5-14.5)
[2025-01-10 06:35] LABS: ALT (SGPT) 258 U/L (0-50); AST (SGOT) 460 U/L (17-59); Albumin 3.2 g/dl (3.5-5.0); Alkaline Phosphatase 205 U/L (38-126); Blood Urea Nitrogen 19 mg/dl (9-20); Calcium 8.3 mg/dl (8.4-10.2); Carbon Dioxide 28 mmol/L (22-30); Chloride 105 mmol/L (98-107); Estimated Creatinine Clearance 72 ml/min; Glucose 172 mg/dl (70-99); Potassium 3.9 mmol/L (3.5-5.1); Sodium 136 mmol/L (135-145); Total Protein 5.6 g/dl (6.3-8.2); eGFR > 60.00
[2025-01-10 07:00] VITALS: BP 124/60
--- NOTE | 2025-01-10 07:36 | W.PN.HOSP.TC ---
Today's Communication/Plan
-
GI consult.
Assessment / Plan
Assessment / Plan
Impression:
64-year-old male past medical history of liver cirrhosis secondary to chronic hepatitis C status post liver transplant/kidney transplant, anemia of chronic disease, diabetes, chronic right hip pain, chronic back pain, CAD status post stents,
bilateral lower extremity DVT with IVC filter, BPH status post TURP, former smoker, presenting with abdominal pain and diarrhea. Symptoms started 4 ago have been constant since then. He has diffuse abdominal pain worse in the lower abdomen. He
has nausea without vomiting. No fevers or chills. He has chronic mild urine incontinence since prior prostate biopsy but no acute urinary symptoms.
In the ER CT abdomen pelvis shows mild rectosigmoid wall thickening, possibly related to underdistention, clinical correlation recommended to exclude possibility proctocolitis, mild diverticulosis, possible mild diverticulitis at the junction of the
distal descending colon proximal sigmoid colon, mild to moderate colonic fecal burden, central lucency of the prostate gland suggesting a TURP defect versus central gland prostatic cyst.
Patient was started on IV Zosyn and admitted to the hospital service.
Next morning LFTs was extremely elevated compared to normal value on admission.
GI consulted.
Assessment/plan:
Acute proctocolitis/diverticulitis
-CT abdomen pelvis shows mild rectosigmoid wall thickening, possibly related to underdistention, clinical correlation recommended to exclude possibility proctocolitis, mild diverticulosis, possible mild diverticulitis at the junction of the distal
descending colon proximal sigmoid colon, mild to moderate colonic fecal burden, central lucency of the prostate gland suggesting a TURP defect versus central gland prostatic cyst
- N.p.o.
- IV fluids given
- Zosyn
- Dilaudid for pain
- Hold antidiarrheal medication
Cellulitis/wound right lower extremity
- Zosyn
Transaminitis.
LFTs within normal limits on day of admission
Elevated next day.
No hypotension
GI consulted
Hyperglycemia likely secondary to infection/insulin noncompliance
Type 2 diabetes
Blood sugar 513 on admisison
- No acidosis or anion gap
Blood sugar improved
Chronic thrombocytopenia secondary to cirrhosis
- Stable
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
- Continue tacrolimus, mycophenolate
Anemia of chronic disease
- Hemoglobin stable at 11.8
Chronic right hip pain
Chronic back pain
- Continue gabapentin
CAD status post stents
- Continue metoprolol
- Continue aspirin
Bilateral lower extremity DVT with IVC filter
BPH status post TURP
Prior drug use
Former smoker
Restless leg syndrome
-continue ropinirole
Full code
DVT prophylaxis�heparin
N.p.o.
Abnormal labs:
Wounds:
CODE STATUS: Full code
DVT prophylaxis: Heparin
Diet: Full Liquid diet
Disposition: GI consult.
Total time spent on today's encounter was 51 minutes which included time spent in counseling the patient/family regarding diagnosis and treatment plan as listed above, goals of care, and symptom management. Case was discussed with nursing staff,
specialists, and care coordinators/case management. All labs and imaging personally reviewed by me. Remainder the time spent in detailed review of previous records, lab data, imaging, and other medical provider documentation.
Anticipated Discharge: 24 - 48 hours
Subjective/Interval History
-
Date of Service: January 10, 2025
Patient seen and examined at bedside, denies any chest pain or shortness of breath, complaining of abdominal pain, headaches, no nausea, no vomiting, no diarrhea or constipation.
Objective Data
-
Labs:
Laboratory Results
01/10/25
05:50
WBC 5.3
Hgb 11.4 L
Hct 32.2 L
Plt Count 110 L
Sodium 136
Potassium 3.9
Chloride 105
Carbon Dioxide 28
BUN 19
Creatinine 1.1
Glucose 172 H
Calcium 8.3 L
Total Bilirubin 2.9 H D
AST 460 H
ALT 258 H
Alkaline Phosphatase 205 H
Vital Signs:
Vital Signs
Temp Pulse Resp BP Pulse Ox
98.0 F 83 16 147/80 100
01/09/25 23:20 01/09/25 23:20 01/09/25 23:20 01/09/25 23:20 01/09/25 23:20
I&O
01/09/25 01/10/25 01/11/25
06:59 06:59 06:59
Output Total 150 / 150
Balance -150 / -150
Physical Exam
-
General: Well Developed, Well Nourished, No Apparent Distress and Comfortable
HEENT: Normocephalic, Atraumatic, Moist Mucous Membranes, No Ptosis, PERRLA and Nose Appears Normal
Respiratory: Clear to Auscultation and Non Labored Respirations
Cardiac: Regular Rhythm and S1/S2
Breast: Deferred by me
GI: Soft, Nontender, Nondistended and Normal Bowel Sounds
Genito-urinary: No Costovertebral Tender
Musculoskeletal: No Clubbing, No Cyanosis, No Edema and Other (Right leg red)
Skin: Warm
Neuro: Awake, Alert, Oriented, AO x 3 and No Motor Deficits
Psych: Calm
Data Reviewed
-
Diagnostic Radiology: Image personally visualized and interpreted and Report Reviewed by me
CT Scan: Image personally visualized and interpreted and Report Reviewed by me
Ultrasound: Image personally visualized and interpreted and Report Reviewed by me
MRI: Image personally visualized and interpreted and Report Reviewed by me
Medical Tests (Nuc Med, Echo etc): Image personally visualized and interpreted and Report Reviewed by me
Labs: Labs Reviewed by me
Old Records: Reviewed
[2025-01-10] MEDS: NEURONTIN 300 MG PO ×2 (09:20→20:16)
[2025-01-10] MEDS: TOPROL XL PO ×2 (09:20→09:57)
[2025-01-10] MEDS: ASPIR LOW (ENTERIC COATED) 81 MG PO (09:21)
[2025-01-10] MEDS: MYFORTIC DELAYED REL. PO (09:22)
[2025-01-10] MEDS: PROGRAF 3 MG PO ×2 (09:51→20:20)
[2025-01-10] MEDS: HEPARIN SC ×3 (09:51→20:16)
[2025-01-10] MEDS: NOVOLOG FLEXPEN-LOW RESISTANCE 2 UNITS SC ×2 (09:59→13:26)
[2025-01-10 10:00] LABS: Glucose - Point of Care 207 mg/dl (70-99)
[2025-01-10 10:37] LABS: Glycohemoglobin (HgbA1c) 10.5 % (4.0-5.6)
[2025-01-10 11:49] LABS: Glucose - Point of Care 214 mg/dl (70-99)
[2025-01-10] MEDS: NSS 1000 IV (13:31)
--- NOTE | 2025-01-10 14:05 | CON.GI ---
Addendum entered and electronically signed by Melecio Faustin MD 01/10/25 19:58:
The patient was seen and examined by me independently in collaboration with the nurse practitioner.
Past medical history/social history/medications/allergies/family history reviewed.
Lab data and imaging data reviewed.
62-year-old male past medical hep C cirrhosis status post liver and kidney transplant at [facility] in 2021 on mycophenolate which he was told to stop but he only decreased to 1 dose a day as there was concerns diarrhea was related to it and
tacrolimus, C. difficile status post fecal transplant, other past medical history as outlined below presenting with abdominal pain and diarrhea. Patient states he took Lomotil 3 pills before going to the ER and his diarrhea stopped. Diarrhea
resumed about a week ago having a nonbloody with incontinence. He also was having some pain, chest pain, headache and a cut on his foot which led to him coming to the emergency room. He also states he has added some supplements such as turmeric,
fish oil, zinc, iron. On CT, he was found to have mild to moderate colonic fecal burden, mild rectosigmoid wall thickening could be related to underdistention, mild diverticulosis possible mild diverticulitis. Dilated bile duct system likely
related to prior cholecystectomy.
In regards to GI symptoms, the diarrhea has improved and stool studies have been ordered and not collected since has not had a bowel movement. Pain seems to be improved as well. Doubtful for diverticulitis.
However, more concerning is his rise in his LFTs. His AST 460, ALT 258, alkaline phosphatase 205, total bilirubin 2.9. Of note, his total bilirubin yesterday was 1.2, AST 18, ALT 18, alkaline phosphatase 132. I have reached out to [facility]
[place] transplant physician who recommended checking autoimmune markers, CMV, tacrolimus levels with goal between 5 and 6 which needs to be checked before his tacrolimus dose in the morning, MRI, ultrasound with Doppler to evaluate his
vasculature. If his LFTs continue to rise, he will need a liver biopsy on Monday. I discussion with the [facility] liver transplant physician as well as my feeling, he would benefit to be transferred to [facility]. Patient is
currently hesitant. I will continue to readdress this with him tomorrow. My concern if he has rejection of his liver transplant, we do not have the means to take care of him at this [facility]. Continue to trend.
Original Note:
Consultation
-
Date/Time Consultation Requested: 01/10/25 0740
Date/Time Consultation Performed: 01/10/25 1300
Requesting Provider: Dr. Beltran
Performing Provider: Dr. Faustin/ALTON Salazar
Reason for Consultation: diarrhea, abd pain, elevated LFTs
Medical History
Chief Complaint / HPI
Chief Complaint: diarrhea
History of Present Illness:
64yo with hx hep C cirrhosis with prior liver/kidney transplant at [facility] in 2021 on mycophenolate (reduced his dose to one daily, although per patient was told to stop in June by [facility] for possible mycophenolate diarrhea) and tacrolimus,
c-diff post transplant, hx Esophageal varices, prior stenting ? esophageal vs biliary, CAD with prior stenting, IDDM, DVT with filter, BPH with prior TURP, ORIF hip, prior foot infection, history of significant diarrhea in the past with complete
workup for diarrhea in past including stool fat neg, fecal calpro normal, and elastase 266 which ruled out pancreatic insufficiency. Last colonoscopy 06/2024- fair prep, hemorrhoids, stool in entire colon, diverticulosis, bx neg CVM and microscopic
colitis. Eventually patient went to [facility] where it was recommended that he stop his mycophenolate for possible mycophenolate induced diarrhea. Patient only reduced this to half with improvement of bowels. Currently presents to the emergency
room with approximately 5-day history of periumbilical abdominal pain, diarrhea and now increased elevated LFTs. We are asked to evaluate for the same. The patient states he started with abdominal pain approximately 5 days ago. Which he states is
both sharp, dull, intermittent, worse with movement and eating. It does not radiate. It was associated with nausea and vomiting last evening after arrival to the emergency room. He did have darker colored urine. He did also start with diarrhea
yesterday multiple episodes of brown however none since arrival here. Prior to arrival here he states his bowel movements have been better. He denies any changes in medication than the described reduction of mycophenolate. He denies any fevers,
chills, melena, hematochezia, dysphagia or dyne aphasia. No early satiety or unintended weight loss. He does live in an . He denies any raw or spoiled food. He does state that he has been eating a lot of vegetable soup and lentil soup
recently. He was also seen for a wound on the lateral part of his right ankle/lower leg. He is being treated for cellulitis. He also had significant hyperglycemia during evaluation. Patient is afebrile, WBC 5.3, hemoglobin 11.4, hematocrit 32.2,
platelets 110, sodium 136, potassium 3.9, BUN 19, creatinine 1.1, glucose 172, hemoglobin A1c 10.5, total bilirubin 2.9, direct bilirubin 1.9, AST 460, ALT 258, alk phos 205 (previously total bilirubin 1.2, AST 18, ALT 18, alk phos 132), lipase 738.
.
Past Medical History
Past Medical History: CAD, IDDM and Other (hep C with cirrhosis and prior liver/kidney transplant - 2021 [facility], DVT with filter, BPH, prior foot infection, c-diff )
Past Surgical History: Cardiac (stents ), Orthopedic (hip ORIF), Urological (TURP) and Other (liver/kidney transplant )
Social History
Tobacco: Non-Smoker
Alcohol: None
Drug: Marijuana (in past )
Living: Alone
Employment: Disabled
Family History
Family History: Other (no family hx liver issues )
Allergies / Home Medications
Allergy/AdvReac Type Severity Reaction Status Date / Time
No Known Allergies Allergy Verified 01/09/25 15:11
�Medication �Instructions �Recorded
aspirin 81 mg tablet,delayed 81 mg PO DAILY Blood Clot 08/15/23
release Prevention/Tx
insulin aspart U-100 100 unit/mL 3 unit (0.03 mL) SC AC Diabetes 1 06/30/24
(3 mL) subcutaneous pen month #2.7 mL
loperamide 2 mg capsule 2 mg PO Q4HPRN PRN diarrhea 1 06/30/24
month #90 caps
ropinirole 0.25 mg tablet 0.5 mg (2 x 0.25 mg) PO HS 06/30/24
restless legs 1 month #60 tabs
mycophenolate sodium 180 mg 180 mg PO Q12H@0800,1999 Kidney 07/08/24
tablet,delayed release transplant #60 tabs
tacrolimus 1 mg capsule, 3 mg (3 x 1 mg) PO Q12H@0800,199907/08/24
immediate-release kidney transplant #180 caps
gabapentin 100 mg capsule 300 mg PO BID Pain 08/06/24
insulin glargine 100 unit/mL (3 24 unit SC HS Diabetes 08/06/24
mL) subcutaneous pen (Lantus
Solostar U-100 Insulin)
metoprolol succinate 25 mg 12.5 mg (1/2 x 25 mg) PO DAILY #15 08/08/24
tablet,extended release 24 hr tabs
Review of Systems
-
All other systems: A 12 pt ROS was Negative except as stated above in HPI
Vital Signs
Temp Pulse Resp BP Pulse Ox
98.4 F 82 16 124/60 98
01/10/25 07:00 01/10/25 07:00 01/10/25 07:00 01/10/25 07:00 01/10/25 07:00
Physical Exam
Exam
General: No Apparent Distress
HEENT: Anicteric
Respiratory: Clear (Anterior)
Cardiac: Regular Rhythm
GI: Soft, Non Distended, Normal Bowel Sounds and Tender (Mid abdomen abdominal tenderness)
Skin: Warm and Dry
Neuro: AO x 3
Psych: Calm
Results
WBC 5.3 10^3/uL (4.8-10.8) 01/10/25 05:50
Hgb 11.4 g/dL (13.0-18.0) L 01/10/25 05:50
Hct 32.2 % (39.0-52.0) L 01/10/25 05:50
MCV 84.5 fL (80.0-94.0) 01/10/25 05:50
Plt Count 110 10^3/uL (130-400) L 01/10/25 05:50
Absolute Neuts (auto) 3.7 10^3/uL (1.4-6.5) 01/10/25 05:50
Sodium 136 mmol/L (135-145) 01/10/25 05:50
Potassium 3.9 mmol/L (3.5-5.1) 01/10/25 05:50
Chloride 105 mmol/L (98-107) 01/10/25 05:50
Carbon Dioxide 28 mmol/L (22-30) 01/10/25 05:50
BUN 19 mg/dl (9-20) 01/10/25 05:50
Creatinine 1.1 mg/dL (0.7-1.3) 01/10/25 05:50
Calcium 8.3 mg/dl (8.4-10.2) L 01/10/25 05:50
Total Bilirubin 2.9 mg/dl (0.2-1.3) H D 01/10/25 05:50
AST 460 U/L (17-59) H 01/10/25 05:50
ALT 258 U/L (0-50) H 01/10/25 05:50
Alkaline Phosphatase 205 U/L (38-126) H 01/10/25 05:50
Lipase 738 U/L (23-300) H 01/09/25 15:19
Diagnostic Image Results:
CT abdomen and pelvis with IV contrast:
Liver and renal transplant.
No liver lesion.
Splenomegaly. Portosystemic venous collaterals.
Distended biliary ductal system, as described. Likely related to prior cholecystectomy. Recommend clinical correlation and correlation with liver function tests.
Stable appearance of left pelvic transplant kidney.
Mild rectosigmoid wall thickening, possibly related to underdistention. Clinical correlation recommended to exclude the possibility of proctocolitis.
Mild diverticulosis possible mild diverticulitis at the junction of the distal descending colon and proximal sigmoid colon.
Mild to moderate colonic fecal burden.
No bowel obstruction.
Central lucency of the prostate gland, suggesting a TURP defect. Otherwise, this could represent a central gland prostatic cyst.
Prior GI Procedures:
Enteroscopy 08/08/2024: Normal esophagus.
- Gastritis. Biopsied.
- Normal examined duodenum. Biopsied.
- Normal examined jejunum. Biopsied.
Colonoscopy: anabel Villalobos 06/2024- fair prep, hemorrhoids, stool in entire colon, diverticulosis, bx neg CVM and microscopic colitis.
Assessment / Plan
-
64yo with hx hep C cirrhosis with prior liver/kidney transplant at [facility] in 2021 on mycophenolate (reduced his dose to one daily, although per patient was told to stop in June by [facility] for possible mycophenolate diarrhea) and tacrolimus,
c-diff post transplant, hx Esophageal varices, prior stenting ? esophageal vs biliary, CAD with prior stenting, IDDM, DVT with filter, BPH with prior TURP, ORIF hip, prior foot infection, history of significant diarrhea in the past with complete
workup for diarrhea in past including stool fat neg, fecal calpro normal, and elastase 266 which ruled out pancreatic insufficiency. Last colonoscopy 06/2024- fair prep, hemorrhoids, stool in entire colon, diverticulosis, bx neg CVM and microscopic
colitis. Eventually patient went to [facility] where it was recommended that he stop his mycophenolate for possible mycophenolate induced diarrhea. Patient only reduced this to half with improvement of bowels. Currently presents to the emergency
room with approximately 5-day history of periumbilical abdominal pain, diarrhea and now increased elevated LFTs. We are asked to evaluate for the same. Patient is afebrile, WBC 5.3, hemoglobin 11.4, hematocrit 32.2, platelets 110, sodium 136,
potassium 3.9, BUN 19, creatinine 1.1, glucose 172, hemoglobin A1c 10.5, total bilirubin 2.9, direct bilirubin 1.9, AST 460, ALT 258, alk phos 205 (previously total bilirubin 1.2, AST 18, ALT 18, alk phos 132), lipase 738. CT of the abdomen and
pelvis with IV contrast shows distended biliary ductal system. Mild rectosigmoid wall thickening. Patient has had no further diarrhea since arrival. Antibiotics given since arrival include ceftriaxone 1 g, metronidazole, Zosyn. For possible
colitis as well as right lower extremity cellulitis. Of note patient is refusing his mycophenolate as well as heparin subcu.
Impression:
Periumbilical/mid abdominal discomfort
--> CT abdomen and pelvis with IV contrast shows mild rectosigmoid wall thickening although possibly related to underdistention. Possible mild diverticulitis at the junction of distal descending colon proximal sigmoid colon. Mild to moderate
colonic fecal burden.
Diarrhea
--> None since arrival
Elevated LFTs
--> Bile duct distended common hepatic 14 mm, CBD 13 mm.
--> New increase
--> Mildly elevated lipase
--> Pain worse with eating
History of liver kidney transplant [facility] 2021 (history of hep C/cirrhosis)
--> On tacrolimus, was recommended to stop mycophenolate, last seen approximately 6 months ago per patient
Cellulitis/wound right lower extremity
Diabetes with hyperglycemia
Anemia
Plan:
- Obtain MRI/MRCP
- Viral hepatitis studies
- Monitor LFTs
- Obtain stool study
- Will reach out to [facility] for most recent records
-Further recommendations to be forthcoming
-
-
Thank you for consultation and allowing me to participate in the patient's care. Please call the nurse liaison GI physician during the after hours with any questions or concerns.
[2025-01-10 15:00] VITALS: BP 97/55
[2025-01-10 15:25] LABS: Hepatitis B Surface Antigen Negative (Negative)
[2025-01-10 15:42] LABS: Hepatitis C Antibody Reactive (Negative)
[2025-01-10] MEDS: MAGNESIUM OXIDE 400 MG PO (15:42)
[2025-01-10 16:52] LABS: Glucose - Point of Care 293 mg/dl (70-99)
[2025-01-10] MEDS: BENTYL 20 MG PO ×2 (18:09→21:30)
[2025-01-10] MEDS: NOVOLOG FLEXPEN-LOW RESISTANCE 3 UNITS SC (18:09)
[2025-01-10] MEDS: MYFORTIC DELAYED REL. 180 MG PO (20:16)
[2025-01-10] MEDS: LANTUS 0.12 UNITS SC (21:30)
[2025-01-10] MEDS: REQUIP 0.5 MG PO (21:30)
[2025-01-10 21:37] LABS: Glucose - Point of Care 357 mg/dl (70-99)
[2025-01-10 23:00] VITALS: BP 126/78
[2025-01-11] MEDS: ZOSYN 50 IV ×4 (00:08→21:23)
[2025-01-11] MEDS: DILAUDID 0.5 MG IV ×5 (00:11→21:29)
[2025-01-11] MEDS: NSS 1000 IV (01:11)
[2025-01-11 07:30] VITALS: BP 110/72
[2025-01-11 08:24] LABS: Glucose - Point of Care 265 mg/dl (70-99)
[2025-01-11 08:35] LABS: INR 1.02; PT 13.7 Sec (11.4-14.6)
[2025-01-11 08:37] LABS: Hematocrit 33.8 % (39.0-52.0); Hemoglobin 11.8 g/dL (13.0-18.0); Mean Corp Hgb Conc. 34.9 g/dL (33.0-37.0); Mean Corpuscular Volume 85.1 fL (80.0-94.0); Platelet Count 119 10^3/uL (130-400); Red Cell Dist. Width 14.5 % (11.5-14.5)
[2025-01-11 08:41] LABS: ALT (SGPT) 205 U/L (0-50); AST (SGOT) 100 U/L (17-59); Albumin 3.1 g/dl (3.5-5.0); Alkaline Phosphatase 195 U/L (38-126); Blood Urea Nitrogen 16 mg/dl (9-20); Calcium 8.3 mg/dl (8.4-10.2); Carbon Dioxide 26 mmol/L (22-30); Chloride 105 mmol/L (98-107); Estimated Creatinine Clearance 61 ml/min; Glucose 234 mg/dl (70-99); Potassium 4.2 mmol/L (3.5-5.1); Sodium 135 mmol/L (135-145); Total Protein 5.6 g/dl (6.3-8.2); eGFR > 60.00
[2025-01-11] MEDS: BENTYL 20 MG PO ×4 (09:18→21:23)
[2025-01-11] MEDS: ASPIR LOW (ENTERIC COATED) 81 MG PO (09:18)
[2025-01-11] MEDS: TOPROL XL 12.5 MG PO (09:18)
[2025-01-11] MEDS: NEURONTIN 300 MG PO ×2 (09:18→21:23)
[2025-01-11] MEDS: MAGNESIUM OXIDE 400 MG PO (09:18)
[2025-01-11] MEDS: NOVOLOG FLEXPEN-LOW RESISTANCE 3 UNITS SC (09:20)
[2025-01-11] MEDS: PROGRAF 3 MG PO ×2 (09:24→21:29)
[2025-01-11] MEDS: HEPARIN SC ×3 (09:24→21:22)
[2025-01-11] MEDS: MYFORTIC DELAYED REL. PO ×2 (09:24→15:19)
[2025-01-11] MEDS: VALIUM INJECTION 5 MG IV (10:43)
--- NOTE | 2025-01-11 10:58 | W.PN.HOSP.TC ---
Today's Communication/Plan
-
MRCP pending
Assessment / Plan
Assessment / Plan
Impression:
64-year-old male past medical history of liver cirrhosis secondary to chronic hepatitis C status post liver transplant/kidney transplant, anemia of chronic disease, diabetes, chronic right hip pain, chronic back pain, CAD status post stents,
bilateral lower extremity DVT with IVC filter, BPH status post TURP, former smoker, presenting with abdominal pain and diarrhea. Symptoms started 4 ago have been constant since then. He has diffuse abdominal pain worse in the lower abdomen. He
has nausea without vomiting. No fevers or chills. He has chronic mild urine incontinence since prior prostate biopsy but no acute urinary symptoms.
In the ER CT abdomen pelvis shows mild rectosigmoid wall thickening, possibly related to underdistention, clinical correlation recommended to exclude possibility proctocolitis, mild diverticulosis, possible mild diverticulitis at the junction of the
distal descending colon proximal sigmoid colon, mild to moderate colonic fecal burden, central lucency of the prostate gland suggesting a TURP defect versus central gland prostatic cyst.
Patient was started on IV Zosyn and admitted to the hospital service.
Next morning LFTs was extremely elevated compared to normal value on admission.
GI consulted.
LFTs improved.
US abdomen with Doppler showed:
1. Patent hepatic vasculature with appropriate directional flow, as described above. Altered flow in the hepatic veins likely related to chronic liver disease.
2. Progressed hydronephrosis of the left lower quadrant transplant kidney.
MRCP pending
Assessment/plan:
Acute proctocolitis/diverticulitis
-CT abdomen pelvis shows mild rectosigmoid wall thickening, possibly related to underdistention, clinical correlation recommended to exclude possibility proctocolitis, mild diverticulosis, possible mild diverticulitis at the junction of the distal
descending colon proximal sigmoid colon, mild to moderate colonic fecal burden, central lucency of the prostate gland suggesting a TURP defect versus central gland prostatic cyst
Patient was n.p.o. then for liquid diet, will advance to low residual
Continue Zosyn for now
Appreciate GI.
Transaminitis.
LFTs within normal limits on day of admission
Elevated next day.
No hypotension
GI consulted.
LFTs improved.
US abdomen with Doppler showed:
1. Patent hepatic vasculature with appropriate directional flow, as described above. Altered flow in the hepatic veins likely related to chronic liver disease.
2. Progressed hydronephrosis of the left lower quadrant transplant kidney.
MRCP pending
Cellulitis/wound right lower extremity
- Zosyn-added probiotic
Hyperglycemia likely secondary to infection/insulin noncompliance
Type 2 diabetes
Blood sugar 513 on admisison
- No acidosis or anion gap
Blood sugar improved
Chronic thrombocytopenia secondary to cirrhosis
- Stable
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
- Continue tacrolimus, mycophenolate
Anemia of chronic disease
- Hemoglobin stable at 11.8
Chronic right hip pain
Chronic back pain
- Continue gabapentin
CAD status post stents
- Continue metoprolol
- Continue aspirin
Bilateral lower extremity DVT with IVC filter
BPH status post TURP
Prior drug use
Former smoker
Restless leg syndrome
-continue ropinirole
CODE STATUS: Full code
DVT prophylaxis: Heparin
Diet: Full Liquid diet----> advance to low residue
Disposition: MRCP pending
Total time spent on today's encounter was 51 minutes which included time spent in counseling the patient/family regarding diagnosis and treatment plan as listed above, goals of care, and symptom management. Case was discussed with nursing staff,
specialists, and care coordinators/case management. All labs and imaging personally reviewed by me. Remainder the time spent in detailed review of previous records, lab data, imaging, and other medical provider documentation.
Anticipated Discharge: 24 - 48 hours
Subjective/Interval History
-
Date of Service: January 11, 2025
Patient seen and examined at bedside.
Abdominal pain improved with Bentyl.
LFTs improved, pending MRCP.
Objective Data
-
Labs:
Laboratory Results
01/11/25
07:33
WBC 6.9
Hgb 11.8 L
Hct 33.8 L
Plt Count 119 L
PT 13.7
INR 1.02
Sodium 135
Potassium 4.2
Chloride 105
Carbon Dioxide 26
BUN 16
Creatinine 1.3
Glucose 234 H
Calcium 8.3 L
Total Bilirubin 1.4 H D
AST 100 H
ALT 205 H
Alkaline Phosphatase 195 H
Vital Signs:
Vital Signs
Temp Pulse Resp BP Pulse Ox
98.2 F 84 16 110/72 98
01/11/25 07:30 01/11/25 07:30 01/11/25 07:30 01/11/25 07:30 01/11/25 07:30
I&O
01/10/25 01/11/25 01/12/25
06:59 06:59 06:59
Intake Total 680 / 680 960 / 960
Output Total 750 / 750 1000 / 1000
Balance -70 / -70 -40 / -40
Physical Exam
-
General: Well Developed, Well Nourished, No Apparent Distress and Comfortable
HEENT: Normocephalic, Atraumatic, Moist Mucous Membranes, No Ptosis, PERRLA and Nose Appears Normal
Respiratory: Clear to Auscultation and Non Labored Respirations
Cardiac: Regular Rhythm and S1/S2
Breast: Deferred by me
GI: Soft, Nontender, Nondistended and Normal Bowel Sounds
Genito-urinary: No Costovertebral Tender
Musculoskeletal: No Clubbing, No Cyanosis, No Edema and Other (Right leg red)
Skin: Warm
Neuro: Awake, Alert, Oriented, AO x 3 and No Motor Deficits
Psych: Calm
[2025-01-11 12:27] LABS: Glucose - Point of Care 270 mg/dl (70-99)
[2025-01-11] MEDS: NOVOLOG FLEXPEN-LOW RESISTANCE 2 UNITS SC (12:27)
--- NOTE | 2025-01-11 15:10 | PTCARENOTE ---
PT [id number] pleasant able to make his needs known. pt co severe 8/10 abdominal pain, dilaudid given with excellent results pt sleeping peacefully. despite abdominal pain pt keeps asking for food. pt was NPO for MRCP and abdominal us. Both tests
completed and diet advanced to low reside diet. BS 265-270 and received insulin according to protocol. DM education was given due to HGa1c . 10. PT received IV valium prior to MRCP due to being s10/10 severely clostrophibic. pt was able to
complete the yvonne twithout any incident. MRI an US results in computer not told to patient. The patient did request his LFT The patient was aware of ASt ALT on 01/09, ,3 01/11 were 18/18; 460/258, 100/205. The patient was happy with the improved
numbers but he did continue to refuse his myfotic. PT is currently resting in room watching TV
--- NOTE | 2025-01-11 15:39 | PTCARENOTE ---
PT aaox3 pleasant able to make needs known. pt admits to having pain in abdomen 5/10 mod but only wants her scheduled tylenol. PT says she is very anxious about the pending pathology report emotional support given. Vss.afebrile. TPn infusing as
per md order without difficulty.. HRR +PP no edema. lungs dec clear. pt denies any sob, paris cp or palpitation. abd soft nt hypoactive bs no bm tender. pt oob ambulating into the bathroom independtly. pt very anxious about not taking her lovenox.
she explained her parents had clotting disorders. she was educated on lovenox, its uses in surgery and in hypercoaguloable states. the patient is looking forward to taking it tonight.
[2025-01-11 16:00] VITALS: BP 147/88
--- NOTE | 2025-01-11 16:14 | CM ---
Chart reviewed and classification case manager met with patient and patient states that he lives alone in a multilevel home, is independent with adl's and ambulation, no dme, patient drives, home when stable, no needs.
PCP: fidelia Garvey reports that Dr. Lantigua is no longer his physician.
[facility] [place], and [facility] as they have 'messed up,' patient's transplant medication.
Plan; Home when stable.
[2025-01-11] MEDS: NOVOLOG FLEXPEN-LOW RESISTANCE 5 UNITS SC (16:56)
[2025-01-11 17:01] LABS: Glucose - Point of Care 353 mg/dl (70-99)
--- NOTE | 2025-01-11 17:30 | W.PN.GI.CBS2 ---
Today's Communication / Plan
-
clear liquid diet, ERCP Monday
Assessment / Plan
-
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
tacrolimus, C. difficile status post fecal transplant, other past medical history as outlined below presenting with abdominal pain and diarrhea. Patient states he took Lomotil 3 pills before going to the ER and his diarrhea stopped. Diarrhea
resumed about a week ago having a nonbloody with incontinence. He also was having some pain, chest pain, headache and a cut on his foot which led to him coming to the emergency room. He also states he has added some supplements such as turmeric,
fish oil, zinc, iron. On CT, he was found to have mild to moderate colonic fecal burden, mild rectosigmoid wall thickening could be related to underdistention, mild diverticulosis possible mild diverticulitis. Dilated bile duct system likely
related to prior cholecystectomy.
In regards to GI symptoms, the diarrhea has improved and stool studies have been ordered and not collected since has not had a bowel movement. Since having pain will diet to clear liquid diet. ? diverticulitis on CT. Pain is lower. On Zosyn.
However, more concerning is his rise in his LFTs. His AST 460, ALT 258, alkaline phosphatase 205, total bilirubin 2.9. Of note, his total bilirubin yesterday was 1.2, AST 18, ALT 18, alkaline phosphatase 132. Today LFTs improved but MRI with
stone in CBD. Plan ERCP Monday d/w Dr. Villalobos; also d/w pt r/a/b inc but not limited to bleeding, infection, perforation, pancreatitis. I have reached out to [facility] transplant physician who recommended checking autoimmune markers, CMV,
tacrolimus levels with goal between 5 and 6 which needs to be checked before his tacrolimus dose in the morning, ultrasound with Doppler to evaluate his vasculature (negative). If his LFTs continue to rise after ERCP, he will need a liver biopsy
and ideally transfer to [facility] although pt does not want to be transferred there.
Subjective
Subjective
Date of Service: January 11, 2025
Still with lower abd pain
No diarrhea, no BM, + gas
Had cheeseburger
Objective
Data Reviewed
Laboratory Data:
Laboratory Results
01/11/25 07:33
01/11/25 07:33
Laboratory Results
PT 13.7 Sec (11.4-14.6) 01/11/25 07:33
INR 1.02 01/11/25 07:33
Total Bilirubin 1.4 mg/dl (0.2-1.3) H D 01/11/25 07:33
AST 100 U/L (17-59) H 01/11/25 07:33
ALT 205 U/L (0-50) H 01/11/25 07:33
Alkaline Phosphatase 195 U/L (38-126) H 01/11/25 07:33
Lipase 738 U/L (23-300) H 01/09/25 15:19
Vital Signs and I&O:
Vital Signs
Temp Pulse Resp BP Pulse Ox
98.2 F 84 16 110/72 98
01/11/25 07:30 01/11/25 07:30 01/11/25 07:30 01/11/25 07:30 01/11/25 07:30
I&O
01/10/25 01/11/25 01/12/25
06:59 06:59 06:59
Intake Total 680 / 680 960 / 960
Output Total 750 / 750 1000 / 1000
Balance -70 / -70 -40 / -40
Physical Exam
Physical Exam
GI: Non Distended and Non Tender
--- NOTE | 2025-01-11 19:15 | PTCARENOTE ---
at 610 pt started to abruptly scream and yell with threatening body language throwing arms around. he was angry because his diet was change to clears. he threatened to leave AMA if i did not get him food right away. notified and a low fat diet
was ordered for diner. PT did improve and was happier once he was permitted to eat. PT was unable to understand that he keeps asking for dilaudid for his abdominal pain and that if he is having abdominal pain he should not be eating. PT stated he
does not have belly pain. I asked what is the dilaudid pain and said his other pain..
[2025-01-11] MEDS: REQUIP 0.5 MG PO (21:23)
[2025-01-11] MEDS: LANTUS 0.12 UNITS SC (21:24)
[2025-01-11] MEDS: MYFORTIC DELAYED REL. 180 MG PO (21:26)
[2025-01-11 21:43] LABS: Glucose - Point of Care 340 mg/dl (70-99)
[2025-01-11 23:56] VITALS: BP 108/65
[2025-01-12] MEDS: DILAUDID 0.5 MG IV ×5 (01:38→21:21)
[2025-01-12] MEDS: ZOSYN 50 IV ×4 (01:38→21:40)
[2025-01-12 07:30] VITALS: BP 118/78
[2025-01-12 08:03] LABS: ALT (SGPT) 134 U/L (0-50); AST (SGOT) 38 U/L (17-59); Albumin 3.2 g/dl (3.5-5.0); Alkaline Phosphatase 201 U/L (38-126); Blood Urea Nitrogen 18 mg/dl (9-20); Calcium 8.5 mg/dl (8.4-10.2); Carbon Dioxide 27 mmol/L (22-30); Chloride 101 mmol/L (98-107); Estimated Creatinine Clearance 56 ml/min; Glucose 406 mg/dl (70-99); Hematocrit 34.9 % (39.0-52.0); Hemoglobin 12.5 g/dL (13.0-18.0); Mean Corp Hgb Conc. 35.8 g/dL (33.0-37.0); Mean Corpuscular Volume 85.7 fL (80.0-94.0); Platelet Count 126 10^3/uL (130-400); Potassium 4.4 mmol/L (3.5-5.1); Red Cell Dist. Width 14.5 % (11.5-14.5); Sodium 132 mmol/L (135-145); Total Protein 5.7 g/dl (6.3-8.2); eGFR 56.83
[2025-01-12 08:37] LABS: Glucose - Point of Care 398 mg/dl (70-99)
[2025-01-12] MEDS: BENTYL 20 MG PO ×4 (09:29→21:30)
[2025-01-12] MEDS: TOPROL XL 12.5 MG PO (09:29)
[2025-01-12] MEDS: MAGNESIUM OXIDE 400 MG PO (09:29)
[2025-01-12] MEDS: ASPIR LOW (ENTERIC COATED) 81 MG PO (09:29)
[2025-01-12] MEDS: NEURONTIN 300 MG PO ×2 (09:29→21:29)
[2025-01-12] MEDS: NOVOLOG FLEXPEN-LOW RESISTANCE 5 UNITS SC ×2 (09:30→13:41)
[2025-01-12] MEDS: MYFORTIC DELAYED REL. 180 MG PO ×2 (09:35→21:29)
[2025-01-12] MEDS: PROGRAF 3 MG PO ×2 (09:35→21:30)
[2025-01-12] MEDS: HEPARIN 5000 UNITS SC (09:36)
--- NOTE | 2025-01-12 11:30 | W.PN.HOSP.TC ---
Today's Communication/Plan
-
ERCP in AM.
Added Premeal insulin.
Increase Lantus to 18 U
Assessment / Plan
Assessment / Plan
Impression:
64-year-old male past medical history of liver cirrhosis secondary to chronic hepatitis C status post liver transplant/kidney transplant, anemia of chronic disease, diabetes, chronic right hip pain, chronic back pain, CAD status post stents,
bilateral lower extremity DVT with IVC filter, BPH status post TURP, former smoker, presenting with abdominal pain and diarrhea. Symptoms started 4 ago have been constant since then. He has diffuse abdominal pain worse in the lower abdomen. He
has nausea without vomiting. No fevers or chills. He has chronic mild urine incontinence since prior prostate biopsy but no acute urinary symptoms.
In the ER CT abdomen pelvis shows mild rectosigmoid wall thickening, possibly related to underdistention, clinical correlation recommended to exclude possibility proctocolitis, mild diverticulosis, possible mild diverticulitis at the junction of the
distal descending colon proximal sigmoid colon, mild to moderate colonic fecal burden, central lucency of the prostate gland suggesting a TURP defect versus central gland prostatic cyst.
Patient was started on IV Zosyn and admitted to the hospital service.
Next morning LFTs was extremely elevated compared to normal value on admission.
GI consulted.
LFTs improved.
US abdomen with Doppler showed:
1. Patent hepatic vasculature with appropriate directional flow, as described above. Altered flow in the hepatic veins likely related to chronic liver disease.
2. Progressed hydronephrosis of the left lower quadrant transplant kidney.
MRCP showed:
Choledocholithiasis with upstream common bile duct dilatation.
Splenomegaly.
For ERCP
Assessment/plan:
Acute proctocolitis/diverticulitis
-CT abdomen pelvis shows mild rectosigmoid wall thickening, possibly related to underdistention, clinical correlation recommended to exclude possibility proctocolitis, mild diverticulosis, possible mild diverticulitis at the junction of the distal
descending colon proximal sigmoid colon, mild to moderate colonic fecal burden, central lucency of the prostate gland suggesting a TURP defect versus central gland prostatic cyst
Patient was n.p.o. then for liquid diet, will advance to low residual
Continue Zosyn for now
Appreciate GI.
Transaminitis.
LFTs within normal limits on day of admission
Elevated next day.
No hypotension
GI consulted.
LFTs improved.
US abdomen with Doppler showed:
1. Patent hepatic vasculature with appropriate directional flow, as described above. Altered flow in the hepatic veins likely related to chronic liver disease.
2. Progressed hydronephrosis of the left lower quadrant transplant kidney.
MRCP showed:
Choledocholithiasis with upstream common bile duct dilatation.
Splenomegaly.
For ERCP in am
Cellulitis/wound right lower extremity
- Zosyn-added probiotic
Hyperglycemia likely secondary to infection/insulin noncompliance
Type 2 diabetes
Blood sugar 513 on admission
Patient not able to take his insulin prescriptions at home.
Does not have glucometer
- No acidosis or anion gap
Initially was on Lantus 12 nightly, increased to 18 (takes 24 at home)
Premeal insulin 3 units
Patient with be given prescriptions for glucometer and insulin at discharge
Chronic thrombocytopenia secondary to cirrhosis
- Stable
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
- Continue tacrolimus, mycophenolate
Anemia of chronic disease
- Hemoglobin stable at 11.8
Chronic right hip pain
Chronic back pain
- Continue gabapentin
CAD status post stents
- Continue metoprolol
- Continue aspirin
Bilateral lower extremity DVT with IVC filter
BPH status post TURP
Prior drug use
Former smoker
Restless leg syndrome
-continue ropinirole
CODE STATUS: Full code
DVT prophylaxis: Heparin
Diet: Full Liquid diet----> advance to low residue
Disposition: ERCP in a.m.
Total time spent on today's encounter was 51 minutes which included time spent in counseling the patient/family regarding diagnosis and treatment plan as listed above, goals of care, and symptom management. Case was discussed with nursing staff,
specialists, and care coordinators/case management. All labs and imaging personally reviewed by me. Remainder the time spent in detailed review of previous records, lab data, imaging, and other medical provider documentation.
Anticipated Discharge: 24 - 48 hours
Subjective/Interval History
-
Date of Service: January 12, 2025
Patient seen and examined at bedside.
Abdominal pain improved with Bentyl.
LFTs improved, for ERCP tomorrow
Objective Data
-
Labs:
Laboratory Results
01/12/25
06:41
WBC 6.0
Hgb 12.5 L
Hct 34.9 L
Plt Count 126 L
Sodium 132 L
Potassium 4.4
Chloride 101
Carbon Dioxide 27
BUN 18
Creatinine 1.4 H
Glucose 406 H
Calcium 8.5
Total Bilirubin 1.4 H
AST 38
ALT 134 H
Alkaline Phosphatase 201 H
Vital Signs:
Vital Signs
Temp Pulse Resp BP Pulse Ox
97.7 F 77 16 118/78 98
01/12/25 07:30 01/12/25 07:30 01/12/25 07:30 01/12/25 07:30 01/12/25 07:30
I&O
01/11/25 01/12/25 01/13/25
06:59 06:59 06:59
Intake Total 680 / 680 1900 / 1900
Output Total 750 / 750 1000 / 1000
Balance -70 / -70 900 / 900
Physical Exam
-
General: Well Developed, Well Nourished, No Apparent Distress and Comfortable
HEENT: Normocephalic, Atraumatic, Moist Mucous Membranes, No Ptosis, PERRLA and Nose Appears Normal
Respiratory: Clear to Auscultation and Non Labored Respirations
Cardiac: Regular Rhythm and S1/S2
Breast: Deferred by me
GI: Soft, Nontender, Nondistended and Normal Bowel Sounds
Genito-urinary: No Costovertebral Tender
Musculoskeletal: No Clubbing, No Cyanosis, No Edema and Other (Right leg red)
Skin: Warm
Neuro: Awake, Alert, Oriented, AO x 3 and No Motor Deficits
Psych: Calm
[2025-01-12 11:52] LABS: Glucose - Point of Care 332 mg/dl (70-99)
--- NOTE | 2025-01-12 15:06 | PTCARENOTE ---
The patient has not had a bm since pre admission. pre admission he had diarrhea and took a couple lomotils and CT scan on admission showed mild to moderate colonic fecal burden. The patient ambulates himself in and out of bathroom. Abd soft +BS non
tender non distended. He states he did not move his bowels, pt has not eaten anything. MD aware but pt is for ERCP in am, The patient's his sugars have been elevated associated with obsession with meals BS in reverse orders were 398, 340, 353,
270, 265, 357, 293, 214, 207. His HG a1c > 10. He is on low dose sliding scale. The MD was made aware and some medication changes were ordered. please see MD orders.
9:33 AM
--- NOTE | 2025-01-12 15:13 | PTCARENOTE ---
[place] text that was given to me after i logged off the night before was from GI MD saying pt should be on clear liquids. I changed his diet to clear liquids. As soon as he found out he again became irrate, angry, yelling, waving arms in threatening
manor saying let me go home, and cursing. I used de escalation techniques to calm him. I explained,i helped him last evening and i will do the same now. Once he was calmer, i asked if he had abdominal pain after eating diner, he stated no. I then
went to MD and shared this and they permited full liquids for lunch. Pt was happier with this. When his clear liquid tray came with coffee no creamer he again started yelling using very threatening non verbal body language cursing. he wanted cream
and very angry that we would not give him creamer. security standing at door due to how loud he was. the patient was able to calm down once i told him the diet was upgraded for next meal. MD was made aware about threatening AMA, To this time,
the patient has remained sweet and calm resting in room without any more incidents
[2025-01-12 16:00] VITALS: BP 119/73
--- NOTE | 2025-01-12 16:21 | W.PN.GI.CBS2 ---
Addendum entered and electronically signed by Melecio Faustin MD 01/13/25 08:09:
tacro level listed under toxicology and pending
Original Note:
Today's Communication / Plan
-
ercp tomorrow
Assessment / Plan
-
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
tacrolimus, C. difficile status post fecal transplant, other past medical history as outlined below presenting with abdominal pain and diarrhea. Patient states he took Lomotil 3 pills before going to the ER and his diarrhea stopped. Diarrhea
resumed about a week ago having a nonbloody with incontinence. He also was having some pain, chest pain, headache and a cut on his foot which led to him coming to the emergency room. He also states he has added some supplements such as turmeric,
fish oil, zinc, iron. On CT, he was found to have mild to moderate colonic fecal burden, mild rectosigmoid wall thickening could be related to underdistention, mild diverticulosis possible mild diverticulitis. Dilated bile duct system likely
related to prior cholecystectomy.
In regards to GI symptoms, the diarrhea has improved and stool studies have been ordered and not collected since has not had a bowel movement. Since having pain will diet on full liquid diet. ? diverticulitis on CT. Pain is lower. On Zosyn. If
pain does not improve recommend repeat CT.
However, more concerning is his rise in his LFTs. His AST 460, ALT 258, alkaline phosphatase 205, total bilirubin 2.9. Of note, his total bilirubin yesterday was 1.2, AST 18, ALT 18, alkaline phosphatase 132. Today LFTs improved but MRI with
stone in CBD. Plan ERCP Monday d/w Dr. Villalobos; also d/w pt r/a/b inc but not limited to bleeding, infection, perforation, pancreatitis. I have reached out to [facility] transplant physician who recommended checking autoimmune markers, CMV,
tacrolimus levels with goal between 5 and 6 which needs to be checked before his tacrolimus dose in the morning (I ordered this do not see in system yet), ultrasound with Doppler to evaluate his vasculature (negative). If his LFTs continue to rise
after ERCP, he will need a liver biopsy and ideally transfer to [facility] although pt does not want to be transferred there.
Subjective
Subjective
Date of Service: January 12, 2025
Still with lower abd pain
Objective
Data Reviewed
Laboratory Data:
Laboratory Results
01/12/25 06:41
01/12/25 06:41
Laboratory Results
PT 13.7 Sec (11.4-14.6) 01/11/25 07:33
INR 1.02 01/11/25 07:33
Total Bilirubin 1.4 mg/dl (0.2-1.3) H 01/12/25 06:41
AST 38 U/L (17-59) 01/12/25 06:41
ALT 134 U/L (0-50) H 01/12/25 06:41
Alkaline Phosphatase 201 U/L (38-126) H 01/12/25 06:41
Lipase 738 U/L (23-300) H 01/09/25 15:19
Vital Signs and I&O:
Vital Signs
Temp Pulse Resp BP Pulse Ox
97.7 F 77 16 118/78 98
01/12/25 07:30 01/12/25 07:30 01/12/25 07:30 01/12/25 07:30 01/12/25 07:30
I&O
01/11/25 01/12/25 01/13/25
06:59 06:59 06:59
Intake Total 680 / 680 1900 / 1900
Output Total 750 / 750 1000 / 1000
Balance -70 / -70 900 / 900
Physical Exam
Physical Exam
GI: Non Distended and Non Tender
[2025-01-12] MEDS: NOVOLOG FLEXPEN-LOW RESISTANCE SC (17:07)
[2025-01-12] MEDS: NOVOLOG FLEXPEN 3 UNITS SC (17:07)
[2025-01-12 17:10] LABS: Glucose - Point of Care 103 mg/dl (70-99)
[2025-01-12] MEDS: HEPARIN SC (21:25)
[2025-01-12] MEDS: REQUIP 0.5 MG PO (21:31)
[2025-01-12 21:36] LABS: Glucose - Point of Care 220 mg/dl (70-99)
[2025-01-12] MEDS: LANTUS 0.18 UNITS SC (21:37)
[2025-01-12 23:46] VITALS: BP 112/68
[2025-01-13] VITALS (7 sets, daily range): BP systolic 106–163; BP diastolic 65–88
[2025-01-13] MEDS: DILAUDID 0.5 MG IV ×5 (01:35→20:29)
[2025-01-13] MEDS: ZOSYN 50 IV ×4 (01:38→20:30)
[2025-01-13 05:41] LABS: Glucose - Point of Care 172 mg/dl (70-99)
[2025-01-13 05:53] LABS: Hematocrit 37.1 % (39.0-52.0); Hemoglobin 13.0 g/dL (13.0-18.0); Mean Corp Hgb Conc. 35.0 g/dL (33.0-37.0); Mean Corpuscular Volume 85.9 fL (80.0-94.0); Platelet Count 148 10^3/uL (130-400); Red Cell Dist. Width 14.6 % (11.5-14.5)
[2025-01-13 06:12] LABS: ALT (SGPT) 108 U/L (0-50); AST (SGOT) 36 U/L (17-59); Albumin 3.7 g/dl (3.5-5.0); Alkaline Phosphatase 185 U/L (38-126); Blood Urea Nitrogen 15 mg/dl (9-20); Calcium 9.1 mg/dl (8.4-10.2); Carbon Dioxide 28 mmol/L (22-30); Chloride 102 mmol/L (98-107); Estimated Creatinine Clearance 53 ml/min; Glucose 172 mg/dl (70-99); Potassium 5.2 mmol/L (3.5-5.1); Sodium 135 mmol/L (135-145); Total Protein 6.4 g/dl (6.3-8.2); eGFR 52.31
[2025-01-13] MEDS: ASPIR LOW (ENTERIC COATED) PO (07:40)
[2025-01-13] MEDS: MAGNESIUM OXIDE 400 MG PO (07:44)
[2025-01-13] MEDS: NEURONTIN 300 MG PO ×2 (07:44→20:30)
[2025-01-13] MEDS: TOPROL XL 12.5 MG PO (07:44)
[2025-01-13] MEDS: BENTYL 20 MG PO ×4 (07:44→21:07)
[2025-01-13] MEDS: PROGRAF 3 MG PO ×2 (07:50→21:07)
[2025-01-13] MEDS: HEPARIN SC ×2 (07:53→20:24)
[2025-01-13] MEDS: MYFORTIC DELAYED REL. PO (07:53)
--- NOTE | 2025-01-13 09:09 | WOUNDNOTE ---
[facility] RN note: Patient admitted with proctocolitis. Patient for an ERCP today.
See H&P for complete history.
PMH: liver cirrhosis d/t chronic hepatitis C, liver and kidney transplant, anemia, DM, chronic R hip pain, back pain, bilateral LE DVT, IVC filter, BPH, TURP, prior drug use, former smoker.
Wound Location and type/assessment: Patient admitted with: R lateral ankle deep dermal ulcer suspect r/t trauma along with chronic LE edema. Patient stated he thinks it was from a hotel shower. R heel discolored pink from previous heel ulcer from
him digging his heel into a rehab bed. Heels blanchable red. Palpable R pedal pulse. Trace LE edema.
Appetite: NPO for procedure.
Pressure redistribution devices in place: [employer] Accumax. Patient moves independently in bed. He is aware to keep heels off bed.
Plan: RLE dressing changed. Instructed patient heel pressure relief measures. t/c SPD and ordered pillow.
Will confirm orders with Dr. Beltran.
Care plan to be updated and will follow as needed.
Note to case management of equipment requested for discharge: VN if patient qualifies.
Recommend follow up at wound care center upon discharge.
[2025-01-13 09:14] LABS: ANA, IgG Reflex to HEp-2 None Detected (None Detected)
[2025-01-13 09:27] LABS: Mitochondrial M2 Ab, IgG 1.3 Units (0.0-24.9)
[2025-01-13] MEDS: NOVOLOG FLEXPEN SC ×2 (09:37→12:42)
[2025-01-13] MEDS: NOVOLOG FLEXPEN-LOW RESISTANCE SC ×3 (09:44→18:59)
[2025-01-13 09:45] LABS: Glucose - Point of Care 166 mg/dl (70-99)
[2025-01-13] MEDS: NOVOLOG FLEXPEN-LOW RESISTANCE 1 UNITS SC ×2 (09:45→12:42)
[2025-01-13 12:07] LABS: Glucose - Point of Care 161 mg/dl (70-99)
--- NOTE | 2025-01-13 12:49 | W.PN.HOSP.TC ---
Today's Communication/Plan
-
discharge home if ERCP normal.
Assessment / Plan
Assessment / Plan
Impression:
64-year-old male past medical history of liver cirrhosis secondary to chronic hepatitis C status post liver transplant/kidney transplant, anemia of chronic disease, diabetes, chronic right hip pain, chronic back pain, CAD status post stents,
bilateral lower extremity DVT with IVC filter, BPH status post TURP, former smoker, presenting with abdominal pain and diarrhea. Symptoms started 4 ago have been constant since then. He has diffuse abdominal pain worse in the lower abdomen. He
has nausea without vomiting. No fevers or chills. He has chronic mild urine incontinence since prior prostate biopsy but no acute urinary symptoms.
In the ER CT abdomen pelvis shows mild rectosigmoid wall thickening, possibly related to underdistention, clinical correlation recommended to exclude possibility proctocolitis, mild diverticulosis, possible mild diverticulitis at the junction of the
distal descending colon proximal sigmoid colon, mild to moderate colonic fecal burden, central lucency of the prostate gland suggesting a TURP defect versus central gland prostatic cyst.
Patient was started on IV Zosyn and admitted to the hospital service.
Next morning LFTs was extremely elevated compared to normal value on admission.
GI consulted.
LFTs improved.
US abdomen with Doppler showed:
1. Patent hepatic vasculature with appropriate directional flow, as described above. Altered flow in the hepatic veins likely related to chronic liver disease.
2. Progressed hydronephrosis of the left lower quadrant transplant kidney.
MRCP showed:
Choledocholithiasis with upstream common bile duct dilatation.
Splenomegaly.
For ERCP 01/13
Assessment/plan:
Acute proctocolitis/diverticulitis
-CT abdomen pelvis shows mild rectosigmoid wall thickening, possibly related to underdistention, clinical correlation recommended to exclude possibility proctocolitis, mild diverticulosis, possible mild diverticulitis at the junction of the distal
descending colon proximal sigmoid colon, mild to moderate colonic fecal burden, central lucency of the prostate gland suggesting a TURP defect versus central gland prostatic cyst
Patient was n.p.o. then for liquid diet, will advance to low residual
Continue Zosyn for now
Appreciate GI .
Transaminitis.
LFTs within normal limits on day of admission
Elevated next day.
No hypotension
GI consulted.
LFTs improved.
US abdomen with Doppler showed:
1. Patent hepatic vasculature with appropriate directional flow, as described above. Altered flow in the hepatic veins likely related to chronic liver disease.
2. Progressed hydronephrosis of the left lower quadrant transplant kidney.
MRCP showed:
Choledocholithiasis with upstream common bile duct dilatation.
Splenomegaly.
For ERCP today
Cellulitis/wound right lower extremity
- Zosyn-added probiotic
Hyperglycemia likely secondary to infection/insulin noncompliance
Type 2 diabetes
Blood sugar 513 on admission
Patient not able to take his insulin prescriptions at home.
Does not have glucometer
- No acidosis or anion gap
Initially was on Lantus 12 nightly, increased to 18 (takes 24 at home)
Premeal insulin 3 units
Patient with be given prescriptions for glucometer and insulin at discharge
Chronic thrombocytopenia secondary to cirrhosis
- Stable
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
- Continue tacrolimus, mycophenolate
Anemia of chronic disease
- Hemoglobin stable at 11.8
Chronic right hip pain
Chronic back pain
- Continue gabapentin
CAD status post stents
- Continue metoprolol
- Continue aspirin
Bilateral lower extremity DVT with IVC filter
BPH status post TURP
Prior drug use
Former smoker
Restless leg syndrome
-continue ropinirole
CODE STATUS: Full code
DVT prophylaxis: Heparin
Diet: NPO for ERCP
Disposition: ERCP today
Total time spent on today's encounter was 51 minutes which included time spent in counseling the patient/family regarding diagnosis and treatment plan as listed above, goals of care, and symptom management. Case was discussed with nursing staff,
specialists, and care coordinators/case management. All labs and imaging personally reviewed by me. Remainder the time spent in detailed review of previous records, lab data, imaging, and other medical provider documentation.
Anticipated Discharge: Today
Subjective/Interval History
-
Date of Service: January 13, 2025
seen and examined at bedside, still complaining of abdominal pain
Objective Data
-
Labs:
Laboratory Results
01/13/25
05:19
WBC 7.4
Hgb 13.0
Hct 37.1 L
Plt Count 148
Sodium 135
Potassium 5.2 H
Chloride 102
Carbon Dioxide 28
BUN 15
Creatinine 1.5 H
Glucose 172 H
Calcium 9.1
Total Bilirubin 1.7 H
AST 36
ALT 108 H
Alkaline Phosphatase 185 H
Vital Signs:
Vital Signs
Temp Pulse Resp BP Pulse Ox
97.8 F 72 16 106/65 98
01/13/25 07:30 01/13/25 07:44 01/13/25 07:30 01/13/25 07:44 01/13/25 07:30
I&O
01/12/25 01/13/25 01/14/25
06:59 06:59 06:59
Intake Total 1900 / 1900 800 / 800
Output Total 1000 / 1000 775 / 775
Balance 900 / 900
Physical Exam
-
General: Well Developed, Well Nourished, No Apparent Distress and Comfortable
HEENT: Normocephalic, Atraumatic, Moist Mucous Membranes, No Ptosis, PERRLA and Nose Appears Normal
Respiratory: Clear to Auscultation and Non Labored Respirations
Cardiac: Regular Rhythm and S1/S2
Breast: Deferred by me
GI: Soft, Nontender, Nondistended and Normal Bowel Sounds
Genito-urinary: No Costovertebral Tender
Musculoskeletal: No Clubbing, No Cyanosis, No Edema and Other (Right leg red)
Skin: Warm
Neuro: Awake, Alert, Oriented, AO x 3 and No Motor Deficits
Psych: Calm
--- NOTE | 2025-01-13 13:33 | CM ---
CM following for discharge planning. Pt is ambulatory in his room, does not feel he will need any services at discharge and will drive himself home.
--- NOTE | 2025-01-13 15:22 | PTCARENOTE ---
Report provided to GI lab.
[2025-01-13 15:26] LABS: Glucose - Point of Care 113 mg/dl (70-99)
[2025-01-13 17:50] LABS: Glucose - Point of Care 118 mg/dl (70-99)
--- NOTE | 2025-01-13 18:00 | W.PN.UPDATE ---
Update Note
Progress Note Update
s/p ERCP for stone extraction. PD inadvertently cannulated during the procedure, PD stent placed for PEP prophylaxis. will need flat plate abdo xray in 2 weeks to confirm migration of PD stent.
--- NOTE | 2025-01-13 18:15 | PTCARENOTE ---
Received pt from GI lab. Pt refusing to eat clear liquid diet, stating he will leave AMA. made aware.
[2025-01-13 18:23] LABS: LKM-1 Ab (IgG) 1.4 U (0.0-24.9)
[2025-01-13] MEDS: NOVOLOG FLEXPEN 3 UNITS SC (18:35)
--- NOTE | 2025-01-13 20:00 | PTCARENOTE ---
Addendum entered by Liat Go RN 01/14/25 01:45:
Patient's blood sugar 317 from 364. Patient stated ' don't want any more additional insulin'. will continue to monitor.
Original Note:
Patient is very upset and asking for 'sandwich', patient just had a loose BM , Patient is saying that, because of clears , he is going this way, he is starving and asking for sandwich. House OXYGEN EQUIPMENT AIDE made aware. No new orders. POC reviewed with patient
gain in detail. will continue to monitor.
[2025-01-13] MEDS: MYFORTIC DELAYED REL. 180 MG PO (20:30)
[2025-01-13] MEDS: REQUIP 0.5 MG PO (21:07)
[2025-01-13 21:52] LABS: Glucose - Point of Care 356 mg/dl (70-99)
[2025-01-13] MEDS: LANTUS 0.18 UNITS SC (21:54)
[2025-01-13 22:45] LABS: Glucose - Point of Care 364 mg/dl (70-99)
[2025-01-13] MEDS: NOVOLOG FLEXPEN 5 UNITS SC (23:37)
[2025-01-14] MEDS: ZOSYN 50 IV ×4 (01:15→21:35)
[2025-01-14] MEDS: DILAUDID 0.5 MG IV ×6 (01:15→21:53)
[2025-01-14 01:25] LABS: Glucose - Point of Care 317 mg/dl (70-99)
[2025-01-14 01:52] LABS: CMV Qnt NAAT Plasma Log IU/mL Not Detected log IU/mL; CMV Quant NAAT Plasma Interp Not Detected (Not Detected); CMV Quant by NAAT Plasma IU/mL Not Detected
[2025-01-14 06:45] LABS: Hematocrit 35.2 % (39.0-52.0); Hemoglobin 12.6 g/dL (13.0-18.0); Mean Corp Hgb Conc. 35.8 g/dL (33.0-37.0); Mean Corpuscular Volume 85.6 fL (80.0-94.0); Nucleated Red Blood Cells % 0 % (-); Platelet Count 135 10^3/uL (130-400); Red Cell Dist. Width 14.6 % (11.5-14.5)
[2025-01-14 07:04] LABS: ALT (SGPT) 241 U/L (0-50); AST (SGOT) 339 U/L (17-59); Albumin 3.4 g/dl (3.5-5.0); Alkaline Phosphatase 369 U/L (38-126); Blood Urea Nitrogen 16 mg/dl (9-20); Calcium 8.5 mg/dl (8.4-10.2); Carbon Dioxide 23 mmol/L (22-30); Chloride 102 mmol/L (98-107); Estimated Creatinine Clearance 53 ml/min; Glucose 279 mg/dl (70-99); Potassium 5.0 mmol/L (3.5-5.1); Sodium 134 mmol/L (135-145); Total Protein 5.8 g/dl (6.3-8.2); eGFR 52.31
[2025-01-14 07:56] LABS: Glucose - Point of Care 264 mg/dl (70-99)
[2025-01-14 07:57] VITALS: BP 114/66
--- NOTE | 2025-01-14 07:57 | W.PN.HOSP.TC ---
Today's Communication/Plan
-
ERCP tomorrow and trend LFTs
Assessment / Plan
Assessment / Plan
Physical exam:
General: Acutely ill
HEENT: Normocephalic, Atraumatic and Moist Mucous Membranes
Respiratory: Clear to Auscultation; Negative Wheezes, Rales or Rhonchi
Cardiac: Regular Rhythm and S1/S2
GI: Soft, tender and Nondistended
Musculoskeletal: No Clubbing, No Cyanosis and No Edema
Neuro: Awake, Alert and Oriented, no neurological deficits
Psych: Calm
Impression:
64-year-old male past medical history of liver cirrhosis secondary to chronic hepatitis C status post liver transplant/kidney transplant, anemia of chronic disease, diabetes, chronic right hip pain, chronic back pain, CAD status post stents,
bilateral lower extremity DVT with IVC filter, BPH status post TURP, former smoker, presenting with abdominal pain and diarrhea. Symptoms started 4 ago have been constant since then. He has diffuse abdominal pain worse in the lower abdomen. He
has nausea without vomiting. No fevers or chills. He has chronic mild urine incontinence since prior prostate biopsy but no acute urinary symptoms.
In the ER CT abdomen pelvis shows mild rectosigmoid wall thickening, possibly related to underdistention, clinical correlation recommended to exclude possibility proctocolitis, mild diverticulosis, possible mild diverticulitis at the junction of the
distal descending colon proximal sigmoid colon, mild to moderate colonic fecal burden, central lucency of the prostate gland suggesting a TURP defect versus central gland prostatic cyst.
Patient was started on IV Zosyn and admitted to the hospital service.
Next morning LFTs was extremely elevated compared to normal value on admission.
GI consulted.
LFTs improved.
US abdomen with Doppler showed:
1. Patent hepatic vasculature with appropriate directional flow, as described above. Altered flow in the hepatic veins likely related to chronic liver disease.
2. Progressed hydronephrosis of the left lower quadrant transplant kidney.
MRCP showed:
Choledocholithiasis with upstream common bile duct dilatation.
Splenomegaly.
For ERCP 01/13
Assessment/plan:
Acute proctocolitis/diverticulitis
-CT abdomen pelvis shows mild rectosigmoid wall thickening, possibly related to underdistention, clinical correlation recommended to exclude possibility proctocolitis, mild diverticulosis, possible mild diverticulitis at the junction of the distal
descending colon proximal sigmoid colon, mild to moderate colonic fecal burden, central lucency of the prostate gland suggesting a TURP defect versus central gland prostatic cyst
Patient was n.p.o. then for liquid diet, will advance to low residual
Continue Zosyn for now
Appreciate GI .
Transaminitis.
LFTs within normal limits on day of admission
Elevated next day.
No hypotension
GI consulted.
LFTs improved.
US abdomen with Doppler showed:
1. Patent hepatic vasculature with appropriate directional flow, as described above. Altered flow in the hepatic veins likely related to chronic liver disease.
2. Progressed hydronephrosis of the left lower quadrant transplant kidney.
MRCP showed:
Choledocholithiasis with upstream common bile duct dilatation.
Splenomegaly.
For ERCP today
01/14:
Bump on LFTs today (ERCP yesterday)
Discussed with patient in case there is any need for transfer to tertiary care center but he is very adamant that he does not want to go back.
Stool studies mostly negative for infection
Discussed with GI and plan to repeat ERCP tomorrow
Continue antibiotics
Trend LFTs in a.m.
Cellulitis/wound right lower extremity
- Zosyn-added probiotic
Hyperglycemia likely secondary to infection/insulin noncompliance
Type 2 diabetes
Blood sugar 513 on admission
Patient not able to take his insulin prescriptions at home.
Does not have glucometer
- No acidosis or anion gap
Initially was on Lantus 12 nightly, increased to 18 (takes 24 at home)
Premeal insulin 3 units
Patient with be given prescriptions for glucometer and insulin at discharge
01/14:
Give 8 units of short acting insulin extra today
Currently on Lantus 18 units and NovoLog 3 units before meals--> planning to increase basal insulin but since he is going to be n.p.o. tomorrow we will reevaluate.
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
Continue to monitor blood sugars closely
Chronic thrombocytopenia secondary to cirrhosis
- Stable
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
- Continue tacrolimus, mycophenolate
Anemia of chronic disease
- Hemoglobin stable at 12.6
Chronic right hip pain
Chronic back pain
- Continue gabapentin
CAD status post stents
- Continue metoprolol
- Continue aspirin
Bilateral lower extremity DVT with IVC filter
BPH status post TURP
Prior drug use
Former smoker
Restless leg syndrome
-continue ropinirole
CODE STATUS: Full code
DVT prophylaxis: Heparin
Diet: 1200 urbano diabetic diet
Disposition: Repeat ERCP tomorrow
Total time spent on today's encounter was 51 minutes which included time spent in counseling the patient/family regarding diagnosis and treatment plan as listed above, goals of care, and symptom management. Case was discussed with nursing staff,
specialists, and care coordinators/case management. All labs and imaging personally reviewed by me. Remainder the time spent in detailed review of previous records, lab data, imaging, and other medical provider documentation.
Anticipated Discharge: > 48 hours
Subjective/Interval History
-
Date of Service: January 14, 2025
Patient complains of abdominal pain and loose stools. Also some abdominal bloating. Afebrile
Objective Data
-
Labs:
Laboratory Results
01/14/25
06:04
WBC 6.5
Hgb 12.6 L
Hct 35.2 L
Plt Count 135
Sodium 134 L
Potassium 5.0
Chloride 102
Carbon Dioxide 23
BUN 16
Creatinine 1.5 H
Glucose 279 H
Calcium 8.5
Total Bilirubin 5.1 H D
AST 339 H
ALT 241 H
Alkaline Phosphatase 369 H
Vital Signs:
Vital Signs
Temp Pulse Resp BP Pulse Ox
98.1 F 77 16 114/66 97
01/14/25 07:57 01/14/25 07:57 01/14/25 07:57 01/14/25 07:57 01/14/25 07:57
I&O
01/13/25 01/14/25 01/15/25
06:59 06:59 06:59
Intake Total 800 / 800 680 / 680
Output Total 775 / 775 400 / 400
Balance 280 / 280
[2025-01-14] MEDS: NEURONTIN 300 MG PO ×2 (09:13→21:33)
[2025-01-14] MEDS: MAGNESIUM OXIDE 400 MG PO (09:13)
[2025-01-14] MEDS: TOPROL XL 12.5 MG PO (09:13)
[2025-01-14] MEDS: ASPIR LOW (ENTERIC COATED) 81 MG PO (09:13)
[2025-01-14] MEDS: BENTYL 20 MG PO ×4 (09:14→21:37)
[2025-01-14] MEDS: PROGRAF 3 MG PO ×2 (09:20→21:33)
[2025-01-14] MEDS: HEPARIN SC ×2 (09:20→21:35)
[2025-01-14] MEDS: MYFORTIC DELAYED REL. PO (09:25)
[2025-01-14] MEDS: NOVOLOG FLEXPEN-LOW RESISTANCE 3 UNITS SC (09:27)
[2025-01-14] MEDS: NOVOLOG FLEXPEN 3 UNITS SC ×3 (09:27→17:49)
[2025-01-14 11:04] LABS: Lipase 26 U/L (23-300)
[2025-01-14 11:49] LABS: Glucose - Point of Care 417 mg/dl (70-99)
[2025-01-14 12:39] LABS: Glucose 427 mg/dl (70-99)
--- NOTE | 2025-01-14 13:09 | W.PN.GI.CBS2 ---
Today's Communication / Plan
-
ERCP tomorrow
Assessment / Plan
-
plan:
- repeat ERCP tomorrow as per Dr. Villalobos
- ok for diet today (Dr. Villalobos ok with this)
- NPO after midnight
- monitor lfts
Subjective
Subjective
Date of Service: January 14, 2025
Pt with jump in lfts, normal amylase after ercp
only some lower abd bloating and some loose stool. wants to eat
Objective
Data Reviewed
Laboratory Data:
Laboratory Results
01/14/25 06:04
01/14/25 12:01
Laboratory Results
PT 13.7 Sec (11.4-14.6) 01/11/25 07:33
INR 1.02 01/11/25 07:33
Total Bilirubin 5.1 mg/dl (0.2-1.3) H D 01/14/25 06:04
AST 339 U/L (17-59) H 01/14/25 06:04
ALT 241 U/L (0-50) H 01/14/25 06:04
Alkaline Phosphatase 369 U/L (38-126) H 01/14/25 06:04
Lipase Cancelled 01/14/25 10:26
Vital Signs and I&O:
Vital Signs
Temp Pulse Resp BP Pulse Ox
98.1 F 77 16 114/66 97
01/14/25 07:57 01/14/25 07:57 01/14/25 07:57 01/14/25 07:57 01/14/25 07:57
I&O
01/13/25 01/14/25 01/15/25
06:59 06:59 06:59
Intake Total 800 / 800 680 / 680
Output Total 775 / 775 400 / 400
Balance 280 / 280
Physical Exam
Physical Exam
GI: Soft, Non Distended and Other (mild tenderness in lower abdomen)
[2025-01-14] MEDS: NOVOLOG FLEXPEN-LOW RESISTANCE 6 UNITS SC (13:25)
[2025-01-14] MEDS: NOVOLOG FLEXPEN 8 UNITS SC (13:44)
[2025-01-14 15:31] VITALS: BP 95/53
[2025-01-14 16:02] LABS: Glucose - Point of Care 359 mg/dl (70-99)
[2025-01-14] MEDS: NOVOLOG FLEXPEN-LOW RESISTANCE 5 UNITS SC (17:50)
--- NOTE | 2025-01-14 19:57 | PTCARENOTE ---
at 1148, patient with AccuCheck result of 417. stat lab glucose done and at 12:01 result was 427. notified Dr. Chiu and he is ordering one time of Novolog 8units of insulin. at 16:01 AccuCheck done and was 3:59. patient tolerating diet and
having multiple diarrhea stools, abd bloating and still receiving PRN Dilaudid for pain with good relief. independent, vss, will continue to monitor.
[2025-01-14 21:22] LABS: Glucose - Point of Care 294 mg/dl (70-99)
[2025-01-14] MEDS: MYFORTIC DELAYED REL. 180 MG PO (21:33)
[2025-01-14] MEDS: REQUIP 0.5 MG PO (21:35)
[2025-01-14] MEDS: LANTUS 0.18 UNITS SC (21:38)
[2025-01-14 23:00] VITALS: BP 121/62
[2025-01-15] VITALS (11 sets, daily range): BP systolic 80–134; BP diastolic 52–74
[2025-01-15 01:51] LABS: Soluble Liver Antigen Ab 3.9 U (0.0-24.9)
[2025-01-15] MEDS: ZOSYN 50 IV ×4 (03:18→21:09)
[2025-01-15] MEDS: DILAUDID 0.5 MG IV ×5 (03:59→22:25)
[2025-01-15 06:46] LABS: Hematocrit 34.3 % (39.0-52.0); Hemoglobin 11.8 g/dL (13.0-18.0); Mean Corp Hgb Conc. 34.4 g/dL (33.0-37.0); Mean Corpuscular Volume 86.4 fL (80.0-94.0); Nucleated Red Blood Cells % 0 % (-); Platelet Count 119 10^3/uL (130-400); Red Cell Dist. Width 15.2 % (11.5-14.5)
[2025-01-15 06:51] LABS: INR 0.96; PT 13.1 Sec (11.4-14.6)
[2025-01-15 07:20] LABS: ALT (SGPT) 276 U/L (0-50); AST (SGOT) 238 U/L (17-59); Albumin 3.4 g/dl (3.5-5.0); Alkaline Phosphatase 371 U/L (38-126); Blood Urea Nitrogen 25 mg/dl (9-20); Calcium 8.5 mg/dl (8.4-10.2); Carbon Dioxide 29 mmol/L (22-30); Chloride 99 mmol/L (98-107); Estimated Creatinine Clearance 38 ml/min; Glucose 369 mg/dl (70-99); Potassium 5.2 mmol/L (3.5-5.1); Sodium 132 mmol/L (135-145); Total Protein 5.7 g/dl (6.3-8.2); eGFR 34.93
[2025-01-15] MEDS: ASPIR LOW (ENTERIC COATED) 81 MG PO (08:29)
[2025-01-15] MEDS: NEURONTIN 300 MG PO ×2 (08:29→21:03)
[2025-01-15] MEDS: BENTYL 20 MG PO ×4 (08:29→21:08)
[2025-01-15] MEDS: TOPROL XL 12.5 MG PO (08:29)
[2025-01-15] MEDS: MAGNESIUM OXIDE 400 MG PO (08:31)
[2025-01-15] MEDS: MYFORTIC DELAYED REL. PO (08:31)
[2025-01-15] MEDS: HEPARIN SC ×2 (08:35→21:02)
[2025-01-15] MEDS: PROGRAF 3 MG PO ×2 (08:35→21:13)
[2025-01-15] MEDS: ZOSYN IV (08:38)
[2025-01-15 08:47] LABS: Glucose - Point of Care 385 mg/dl (70-99)
[2025-01-15] MEDS: NOVOLOG FLEXPEN-LOW RESISTANCE 5 UNITS SC ×2 (08:58→19:24)
[2025-01-15 11:18] LABS: Glucose - Point of Care 329 mg/dl (70-99)
--- NOTE | 2025-01-15 11:35 | PN.DE.MGMTRT ---
Insulin Management
- -
01/15/2025 Diabetes Management Consult
Patient admitted 01/09 with abdominal pain, diarrhea, possible diverticulitis/proctocolitis. Diabetes Management consult 01/15. [facility] liver cirrhosis secondary to chronic hepatitis C status post liver transplant/kidney transplant, anemia of chronic
disease, diabetes, chronic right hip pain, chronic back pain, CAD status post stents, bilateral lower extremity DVT with IVC filter, BPH status post TURP, former smoker. Prior to admission was taking 3 units novolog ac with lantus 24 units @ HS,
A1C 10.5%, cr 1.5, eGFR 52.31 on admission; cr up to 2.1, eGFR 34.93 today.
Patient is awake alert and oriented able to discuss diabetes care. He has had diabetes since 2010. States he used to see Dr. Jayro Rosado but he doesn't like him so is looking for a new endo. He has been asked not to return to his primary doctor so
is looking for a new primary doctor. He asked for an insulin pump and a 'patch' area director. He states he has a sandi but needs the area director. Suggested he use his phone to receive glucose results but he states 'it is all messed up'. Advised to call
[facility] and they could send a new area director. I provided information about the process to start an insulin pump - prescribing doctor, insurance confirmation of coverage, and the training which is ~ 2 hours. Patient states he has a meter but not sure
about test strips. He does not know the name of the meter so will be unable to provide RX for strips. Suggested he try [employer] brand as that is more affordable.
Patient received 18 units lantus @ HS, fasting glucose 369 this AM. Patient is NPO after midnight for procedure. Will increase hs lantus to home dose 24 units. After procedure patient to receive 8 units novolog AC with low corrective insulin.
Discussed with nurse.
Will follow.
Diabetes History
- -
Type of Diabetes: 2 requiring insulin
Pre-Admission Diabetes Regimen
01/15/25
06:23
Creatinine 2.1 H
Lab Results
Hemoglobin A1c 10.5 % (4.0-5.6) H 01/10/25 05:50
Insulin Pump Settings
IP Diabetes Regimen
01/14/25 01/14/25 01/14/25
11:48 12:01 16:01
Glucose 427 H
POC Glucose 417 H 359 H
01/14/25 01/15/25 01/15/25
21:20 06:23 08:46
Glucose 369 H
POC Glucose 294 H 385 H
01/15/25
11:16
Glucose
POC Glucose 329 H
Patient Education
[2025-01-15] MEDS: NOVOLOG FLEXPEN-LOW RESISTANCE 4 UNITS SC (11:36)
--- NOTE | 2025-01-15 11:38 | W.PN.HOSP.TC ---
Today's Communication/Plan
-
Antibiotics. Increase insulin. Possible ERCP
Assessment / Plan
Assessment / Plan
Physical exam:
General: Acutely ill
HEENT: Normocephalic, Atraumatic and Moist Mucous Membranes
Respiratory: Clear to Auscultation; Negative Wheezes, Rales or Rhonchi
Cardiac: Regular Rhythm and S1/S2
GI: Soft, tender and Nondistended
Musculoskeletal: No Clubbing, No Cyanosis and No Edema
Neuro: Awake, Alert and Oriented, no neurological deficits
Psych: Calm
Impression:
64-year-old male past medical history of liver cirrhosis secondary to chronic hepatitis C status post liver transplant/kidney transplant, anemia of chronic disease, diabetes, chronic right hip pain, chronic back pain, CAD status post stents,
bilateral lower extremity DVT with IVC filter, BPH status post TURP, former smoker, presenting with abdominal pain and diarrhea. Symptoms started 4 ago have been constant since then. He has diffuse abdominal pain worse in the lower abdomen. He
has nausea without vomiting. No fevers or chills. He has chronic mild urine incontinence since prior prostate biopsy but no acute urinary symptoms.
In the ER CT abdomen pelvis shows mild rectosigmoid wall thickening, possibly related to underdistention, clinical correlation recommended to exclude possibility proctocolitis, mild diverticulosis, possible mild diverticulitis at the junction of the
distal descending colon proximal sigmoid colon, mild to moderate colonic fecal burden, central lucency of the prostate gland suggesting a TURP defect versus central gland prostatic cyst.
Patient was started on IV Zosyn and admitted to the hospital service.
Next morning LFTs was extremely elevated compared to normal value on admission.
GI consulted.
LFTs improved.
US abdomen with Doppler showed:
1. Patent hepatic vasculature with appropriate directional flow, as described above. Altered flow in the hepatic veins likely related to chronic liver disease.
2. Progressed hydronephrosis of the left lower quadrant transplant kidney.
MRCP showed:
Choledocholithiasis with upstream common bile duct dilatation.
Splenomegaly.
For ERCP 01/13
Assessment/plan:
Acute proctocolitis/diverticulitis
-CT abdomen pelvis shows mild rectosigmoid wall thickening, possibly related to underdistention, clinical correlation recommended to exclude possibility proctocolitis, mild diverticulosis, possible mild diverticulitis at the junction of the distal
descending colon proximal sigmoid colon, mild to moderate colonic fecal burden, central lucency of the prostate gland suggesting a TURP defect versus central gland prostatic cyst
Patient was n.p.o. then for liquid diet, will advance to low residual
Continue Zosyn for now
Appreciate GI .
Transaminitis.
LFTs within normal limits on day of admission
Elevated next day.
No hypotension
GI consulted.
LFTs improved.
US abdomen with Doppler showed:
1. Patent hepatic vasculature with appropriate directional flow, as described above. Altered flow in the hepatic veins likely related to chronic liver disease.
2. Progressed hydronephrosis of the left lower quadrant transplant kidney.
MRCP showed:
Choledocholithiasis with upstream common bile duct dilatation.
Splenomegaly.
For ERCP today
01/14:
Bump on LFTs today (ERCP yesterday)
Discussed with patient in case there is any need for transfer to tertiary care center but he is very adamant that he does not want to go back.
Stool studies mostly negative for infection
Discussed with GI and plan to repeat ERCP tomorrow
Continue antibiotics
Trend LFTs in a.m.
01/15:
N.p.o. per GI guidance for possible repeat ERCP today
LFTs are trending down
Continue to trend LFTs
Cellulitis/wound right lower extremity
- Zosyn-added probiotic
Hyperglycemia likely secondary to infection/insulin noncompliance
Type 2 diabetes
Blood sugar 513 on admission
Patient not able to take his insulin prescriptions at home.
Does not have glucometer
- No acidosis or anion gap
Initially was on Lantus 12 nightly, increased to 18 (takes 24 at home)
Premeal insulin 3 units
Patient with be given prescriptions for glucometer and insulin at discharge
01/14:
Give 8 units of short acting insulin extra today
Currently on Lantus 18 units and NovoLog 3 units before meals--> planning to increase basal insulin but since he is going to be n.p.o. tomorrow we will reevaluate.
NETWORK APPLICATIONS SPECIALIST diabetic eval
Continue to monitor blood sugars closely
01/15:
He had extra 5 units this morning. No changes on Lantus last evening since anticipating being n.p.o. today but blood sugars today over the 300s even fasting.
Increase Lantus to 24 units at nighttime
Increase Humalog to 8 units before meals
Continue insulin sliding scale, low resistance
Chronic thrombocytopenia secondary to cirrhosis
- Stable
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
- Continue tacrolimus, mycophenolate
Anemia of chronic disease
- Hemoglobin stable at 12.6
Chronic right hip pain
Chronic back pain
- Continue gabapentin
CAD status post stents
- Continue metoprolol
- Continue aspirin
Bilateral lower extremity DVT with IVC filter
BPH status post TURP
Prior drug use
Former smoker
Restless leg syndrome
-continue ropinirole
CODE STATUS: Full code
DVT prophylaxis: Heparin
Diet: 1200 urbano diabetic diet
Disposition: Repeat ERCP tomorrow
Total time spent on today's encounter was 53 minutes which included time spent in counseling the patient/family regarding diagnosis and treatment plan as listed above, goals of care, and symptom management. Case was discussed with nursing staff,
specialists, and care coordinators/case management. All labs and imaging personally reviewed by me. Remainder the time spent in detailed review of previous records, lab data, imaging, and other medical provider documentation.
Anticipated Discharge: 24 - 48 hours
Subjective/Interval History
-
Date of Service: January 15, 2025
Patient still having ongoing abdominal discomfort and loose stools although overall less. No nausea or vomiting today. Afebrile
Objective Data
-
Labs:
Laboratory Results
01/15/25
06:23
WBC 6.9
Hgb 11.8 L
Hct 34.3 L
Plt Count 119 L
PT 13.1
INR 0.96
Sodium 132 L
Potassium 5.2 H
Chloride 99
Carbon Dioxide 29
BUN 25 H
Creatinine 2.1 H
Glucose 369 H
Calcium 8.5
Total Bilirubin 2.0 H D
AST 238 H
ALT 276 H
Alkaline Phosphatase 371 H
Vital Signs:
Vital Signs
Temp Pulse Resp BP Pulse Ox
97.4 F 78 18 107/67 99
01/15/25 07:30 01/15/25 08:29 01/15/25 07:30 01/15/25 08:29 01/15/25 07:30
I&O
01/14/25 01/15/25 01/16/25
06:59 06:59 06:59
Intake Total 680 / 680 2420 / 2420
Output Total 400 / 400 650 / 650
Balance 280 / 280 1770 / 1770
[2025-01-15 13:22] LABS: Glucose - Point of Care 226 mg/dl (70-99)
[2025-01-15] MEDS: NOVOLOG FLEXPEN 8 UNITS SC ×2 (15:50→19:25)
--- NOTE | 2025-01-15 16:27 | CM ---
Pt anticipates discharge to home when medically cleared; denies needs at discharge and will drive himself home.
[2025-01-15 17:06] LABS: Glucose - Point of Care 367 mg/dl (70-99)
[2025-01-15] MEDS: NSS 1000 IV (17:21)
[2025-01-15] MEDS: REQUIP 0.5 MG PO (21:08)
[2025-01-15 21:15] LABS: Glucose - Point of Care 304 mg/dl (70-99)
[2025-01-15] MEDS: MYFORTIC DELAYED REL. 180 MG PO (21:16)
[2025-01-15] MEDS: LANTUS 0.24 UNITS SC (21:16)
[2025-01-16] MEDS: DILAUDID 0.5 MG IV ×6 (02:29→23:59)
[2025-01-16] MEDS: ZOSYN 50 IV ×3 (04:40→16:30)
[2025-01-16] MEDS: NSS 1000 IV ×2 (04:49→21:44)
[2025-01-16 06:49] LABS: Hematocrit 32.6 % (39.0-52.0); Hemoglobin 11.4 g/dL (13.0-18.0); INR 0.93; Mean Corp Hgb Conc. 35.0 g/dL (33.0-37.0); Mean Corpuscular Volume 85.6 fL (80.0-94.0); PT 12.9 Sec (11.4-14.6); Platelet Count 114 10^3/uL (130-400); Red Cell Dist. Width 14.8 % (11.5-14.5)
[2025-01-16 07:06] LABS: ALT (SGPT) 169 U/L (0-50); AST (SGOT) 54 U/L (17-59); Albumin 3.1 g/dl (3.5-5.0); Alkaline Phosphatase 308 U/L (38-126); Blood Urea Nitrogen 20 mg/dl (9-20); Calcium 8.4 mg/dl (8.4-10.2); Carbon Dioxide 26 mmol/L (22-30); Chloride 105 mmol/L (98-107); Estimated Creatinine Clearance 53 ml/min; Glucose 381 mg/dl (70-99); Potassium 4.3 mmol/L (3.5-5.1); Sodium 134 mmol/L (135-145); Total Protein 5.4 g/dl (6.3-8.2); eGFR 52.31
[2025-01-16 07:23] LABS: Glucose - Point of Care 388 mg/dl (70-99)
[2025-01-16 07:45] VITALS: BP 129/70
--- NOTE | 2025-01-16 07:48 | PN.DE.MGMTRT ---
Insulin Management
- -
01/16/2025 Diabetes Management Consult Follow up
Patient admitted 01/09 with abdominal pain, diarrhea, possible diverticulitis/proctocolitis. Diabetes Management consult 01/15. [facility] liver cirrhosis secondary to chronic hepatitis C status post liver transplant/kidney transplant, anemia of chronic
disease, diabetes, chronic right hip pain, chronic back pain, CAD status post stents, bilateral lower extremity DVT with IVC filter, BPH status post TURP, former smoker. Prior to admission was taking 3 units novolog ac with lantus 24 units @ HS,
A1C 10.5%, cr 1.5, eGFR 52.31 on admission; cr up to 2.1, eGFR 34.93 today.
Patient is awake alert and oriented able to discuss diabetes care. He has had diabetes since 2010.
Patient received 24 units lantus @ HS, fasting glucose 388 this AM. Will increase hs lantus to 30 units. Received 8 units novolog AC with low corrective insulin. Pre dinner glucose 367 and HS glucose 304. Will increase AC novolog to 14 units and
continue low corrective.
01/15 States he used to see Dr. Jayro Rosado but he doesn't like him so is looking for a new endo. He has been asked not to return to his primary doctor so is looking for a new primary doctor. He asked for an insulin pump and a 'patch' admitting coordinator. He
states he has a sandi but needs the admitting coordinator. Suggested he use his phone to receive glucose results but he states 'it is all messed up'. Advised to call [facility] and they could send a new admitting coordinator. I provided information about the process to start
an insulin pump - prescribing doctor, insurance confirmation of coverage, and the training which is ~ 2 hours. Patient states he has a meter but not sure about test strips. He does not know the name of the meter so will be unable to provide RX for
strips. Suggested he try [employer] brand as that is more affordable.
Discussed with nurse.
Will follow.
Diabetes History
- -
Type of Diabetes: 2 requiring insulin
Pre-Admission Diabetes Regimen
01/16/25
06:14
Creatinine 1.5 H
Lab Results
Hemoglobin A1c 10.5 % (4.0-5.6) H 01/10/25 05:50
Insulin Pump Settings
IP Diabetes Regimen
01/15/25 01/15/25 01/15/25
08:46 11:16 13:21
Glucose
POC Glucose 385 H 329 H 226 H
01/15/25 01/15/25 01/16/25
17:05 21:13 06:14
Glucose 381 H
POC Glucose 367 H 304 H
01/16/25
07:22
Glucose
POC Glucose 388 H
Patient Education
[2025-01-16] MEDS: NOVOLOG FLEXPEN-LOW RESISTANCE 5 UNITS SC (09:28)
[2025-01-16] MEDS: NEURONTIN 300 MG PO ×2 (09:29→19:56)
[2025-01-16] MEDS: NOVOLOG FLEXPEN 14 UNITS SC (09:29)
[2025-01-16] MEDS: ASPIR LOW (ENTERIC COATED) 81 MG PO (09:30)
[2025-01-16] MEDS: TOPROL XL 12.5 MG PO (09:30)
[2025-01-16] MEDS: MAGNESIUM OXIDE 400 MG PO (09:30)
[2025-01-16] MEDS: BENTYL 20 MG PO ×4 (09:30→21:45)
[2025-01-16] MEDS: MYFORTIC DELAYED REL. PO (09:33)
[2025-01-16] MEDS: PROGRAF 3 MG PO ×2 (09:33→19:57)
[2025-01-16] MEDS: HEPARIN SC ×2 (09:33→19:54)
[2025-01-16] MEDS: NOVOLOG FLEXPEN SC ×2 (09:47→13:59)
--- NOTE | 2025-01-16 11:18 | W.PN.HOSP.TC ---
Today's Communication/Plan
-
Trend LFTs. GI reeval
Assessment / Plan
Assessment / Plan
Physical exam:
General: Acutely ill
HEENT: Normocephalic, Atraumatic and Moist Mucous Membranes
Respiratory: Clear to Auscultation; Negative Wheezes, Rales or Rhonchi
Cardiac: Regular Rhythm and S1/S2
GI: Soft, tender and Nondistended
Musculoskeletal: No Clubbing, No Cyanosis and No Edema
Neuro: Awake, Alert and Oriented, no neurological deficits
Psych: Calm
Impression:
64-year-old male past medical history of liver cirrhosis secondary to chronic hepatitis C status post liver transplant/kidney transplant, anemia of chronic disease, diabetes, chronic right hip pain, chronic back pain, CAD status post stents,
bilateral lower extremity DVT with IVC filter, BPH status post TURP, former smoker, presenting with abdominal pain and diarrhea. Symptoms started 4 ago have been constant since then. He has diffuse abdominal pain worse in the lower abdomen. He
has nausea without vomiting. No fevers or chills. He has chronic mild urine incontinence since prior prostate biopsy but no acute urinary symptoms.
In the ER CT abdomen pelvis shows mild rectosigmoid wall thickening, possibly related to underdistention, clinical correlation recommended to exclude possibility proctocolitis, mild diverticulosis, possible mild diverticulitis at the junction of the
distal descending colon proximal sigmoid colon, mild to moderate colonic fecal burden, central lucency of the prostate gland suggesting a TURP defect versus central gland prostatic cyst.
Patient was started on IV Zosyn and admitted to the hospital service.
Next morning LFTs was extremely elevated compared to normal value on admission.
GI consulted.
LFTs improved.
US abdomen with Doppler showed:
1. Patent hepatic vasculature with appropriate directional flow, as described above. Altered flow in the hepatic veins likely related to chronic liver disease.
2. Progressed hydronephrosis of the left lower quadrant transplant kidney.
MRCP showed:
Choledocholithiasis with upstream common bile duct dilatation.
Splenomegaly.
For ERCP 01/13
Assessment/plan:
Acute proctocolitis/diverticulitis
-CT abdomen pelvis shows mild rectosigmoid wall thickening, possibly related to underdistention, clinical correlation recommended to exclude possibility proctocolitis, mild diverticulosis, possible mild diverticulitis at the junction of the distal
descending colon proximal sigmoid colon, mild to moderate colonic fecal burden, central lucency of the prostate gland suggesting a TURP defect versus central gland prostatic cyst
Patient was n.p.o. then for liquid diet, will advance to low residual
Continue Zosyn for now
Appreciate GI .
Transaminitis.
LFTs within normal limits on day of admission
Elevated next day.
No hypotension
GI consulted.
LFTs improved.
US abdomen with Doppler showed:
1. Patent hepatic vasculature with appropriate directional flow, as described above. Altered flow in the hepatic veins likely related to chronic liver disease.
2. Progressed hydronephrosis of the left lower quadrant transplant kidney.
MRCP showed:
Choledocholithiasis with upstream common bile duct dilatation.
Splenomegaly.
For ERCP today
01/14:
Bump on LFTs today (ERCP yesterday)
Discussed with patient in case there is any need for transfer to tertiary care center but he is very adamant that he does not want to go back.
Stool studies mostly negative for infection
Discussed with GI and plan to repeat ERCP tomorrow
Continue antibiotics
Trend LFTs in a.m.
01/15:
N.p.o. per GI guidance for possible repeat ERCP today
LFTs are trending down
Continue to trend LFTs
01/16:
Patient had ERCP yesterday and prior biliary sphincterotomy. Open but had a biliary stricture in the upper third of the main bile duct so dilated and was swept and sludge was found status post stent in the common hepatic duct.
LFTs continue to trend down and will monitor in a.m.
Tolerating diabetic diet
Follow-up GI recommendations
ROXY
On IV fluids
Creatinine peaked to 2.1 and down to 1.5 today
Baseline creatinine around 1.1-1.3
Hyperkalemia
Resolved with IV fluids and improvement of ROXY
Low potassium diet
Cellulitis/wound right lower extremity
- Zosyn-added probiotic
Hyperglycemia likely secondary to infection/insulin noncompliance
Type 2 diabetes
Blood sugar 513 on admission
Patient not able to take his insulin prescriptions at home.
Does not have glucometer
- No acidosis or anion gap
Initially was on Lantus 12 nightly, increased to 18 (takes 24 at home)
Premeal insulin 3 units
Patient with be given prescriptions for glucometer and insulin at discharge
01/14:
Give 8 units of short acting insulin extra today
Currently on Lantus 18 units and NovoLog 3 units before meals--> planning to increase basal insulin but since he is going to be n.p.o. tomorrow we will reevaluate.
ELECTRONIC RESOURCES LIBRARIAN diabetic eval
Continue to monitor blood sugars closely
01/15:
He had extra 5 units this morning. No changes on Lantus last evening since anticipating being n.p.o. today but blood sugars today over the 300s even fasting.
Increase Lantus to 24 units at nighttime
Increase Humalog to 8 units before meals
Continue insulin sliding scale, low resistance
Chronic thrombocytopenia secondary to cirrhosis
- Stable
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
- Continue tacrolimus, mycophenolate
Anemia of chronic disease
- Hemoglobin stable at 12.6
Chronic right hip pain
Chronic back pain
- Continue gabapentin
CAD status post stents
- Continue metoprolol
- Continue aspirin
Bilateral lower extremity DVT with IVC filter
BPH status post TURP
Prior drug use
Former smoker
Restless leg syndrome
-continue ropinirole
CODE STATUS: Full code
DVT prophylaxis: Heparin
Diet: 1200 urbano diabetic diet
Disposition: Repeat ERCP tomorrow
Total time spent on today's encounter was 35 minutes which included time spent in counseling the patient/family regarding diagnosis and treatment plan as listed above, goals of care, and symptom management. Case was discussed with nursing staff,
specialists, and care coordinators/case management. All labs and imaging personally reviewed by me. Remainder the time spent in detailed review of previous records, lab data, imaging, and other medical provider documentation.
Anticipated Discharge: 24 - 48 hours
Subjective/Interval History
-
Date of Service: January 16, 2025
Patient still having abdominal pain mild to moderate diffuse. Afebrile
Objective Data
-
Labs:
Laboratory Results
01/16/25
06:14
WBC 5.6
Hgb 11.4 L
Hct 32.6 L
Plt Count 114 L
PT 12.9
INR 0.93
Sodium 134 L
Potassium 4.3
Chloride 105
Carbon Dioxide 26
BUN 20
Creatinine 1.5 H
Glucose 381 H
Calcium 8.4
Total Bilirubin 0.9 D
AST 54
ALT 169 H
Alkaline Phosphatase 308 H
Vital Signs:
Vital Signs
Temp Pulse Resp BP Pulse Ox
98.4 F 77 17 129/70 98
01/16/25 07:45 01/16/25 07:45 01/16/25 07:45 01/16/25 07:45 01/16/25 07:45
I&O
01/15/25 01/16/25 01/17/25
06:59 06:59 06:59
Intake Total 2420 / 2420 840 / 840
Output Total 650 / 650
Balance 1770 / 1770 840 / 840
[2025-01-16 12:45] LABS: Glucose - Point of Care 66 mg/dl (70-99)
[2025-01-16 13:09] LABS: Glucose - Point of Care 59 mg/dl (70-99)
[2025-01-16 13:41] LABS: Glucose - Point of Care 107 mg/dl (70-99)
[2025-01-16] MEDS: NOVOLOG FLEXPEN-LOW RESISTANCE SC (13:57)
[2025-01-16 15:18] VITALS: BP 109/64
[2025-01-16 16:49] LABS: Glucose - Point of Care 321 mg/dl (70-99)
[2025-01-16] MEDS: IMODIUM 2 MG PO (18:25)
[2025-01-16] MEDS: NOVOLOG FLEXPEN-LOW RESISTANCE 4 UNITS SC (18:26)
[2025-01-16] MEDS: NOVOLOG FLEXPEN 11 UNITS SC (18:27)
[2025-01-16] MEDS: MYFORTIC DELAYED REL. 180 MG PO (19:55)
[2025-01-16 21:24] LABS: Glucose - Point of Care 237 mg/dl (70-99)
[2025-01-16] MEDS: REQUIP 0.5 MG PO (21:46)
[2025-01-16] MEDS: LANTUS 0.3 UNITS SC (21:47)
[2025-01-16 23:00] VITALS: BP 134/70
[2025-01-17] MEDS: DILAUDID 0.5 MG IV ×5 (04:03→21:39)
[2025-01-17 06:37] LABS: INR 0.91; PT 12.7 Sec (11.4-14.6)
[2025-01-17 06:45] LABS: Hematocrit 36.2 % (39.0-52.0); Hemoglobin 12.1 g/dL (13.0-18.0); Mean Corp Hgb Conc. 33.4 g/dL (33.0-37.0); Mean Corpuscular Volume 89.6 fL (80.0-94.0); Platelet Count 130 10^3/uL (130-400); Red Cell Dist. Width 14.7 % (11.5-14.5)
[2025-01-17 07:07] VITALS: BP 137/65
[2025-01-17 07:13] LABS: Glucose - Point of Care 220 mg/dl (70-99)
[2025-01-17 07:59] LABS: ALT (SGPT) 128 U/L (0-50); AST (SGOT) 34 U/L (17-59); Albumin 3.4 g/dl (3.5-5.0); Alkaline Phosphatase 248 U/L (38-126); Blood Urea Nitrogen 17 mg/dl (9-20); Calcium 9.2 mg/dl (8.4-10.2); Carbon Dioxide 30 mmol/L (22-30); Chloride 105 mmol/L (98-107); Estimated Creatinine Clearance 61 ml/min; Glucose 226 mg/dl (70-99); Lipase 56 U/L (23-300); Potassium 4.7 mmol/L (3.5-5.1); Sodium 136 mmol/L (135-145); Total Protein 5.9 g/dl (6.3-8.2); eGFR > 60.00
--- NOTE | 2025-01-17 08:07 | PN.DE.MGMTRT ---
Insulin Management
- -
01/17/2025: Diabetes Management Consult Follow up
Patient admitted 01/09 with abdominal pain, diarrhea, possible diverticulitis/proctocolitis. Diabetes Management consult 01/15. PMH: Liver cirrhosis secondary to chronic hepatitis C status post liver transplant/kidney transplant, anemia of chronic
disease, diabetes, chronic right hip pain, chronic back pain, CAD status post stents, bilateral lower extremity DVT with IVC filter, BPH status post TURP, former smoker. Prior to admission was taking 3 units NovoLog ac with Lantus 24 units @ HS,
A1C 10.5%, cr 1.5, eGFR 52.31 on admission; cr up to 2.1, eGFR 34.93-->1.3, eGFR >60 today.
Patient is awake alert and oriented able to discuss diabetes care. He has had diabetes since 2010.
Patient received 30 units Lantus @ HS, fasting glucose 226 this AM.
Will increase hs Lantus to 32 units. Received 11 units NovoLog AC with low corrective insulin. Pre dinner glucose 321 and HS glucose 237.
Will increase AC NovoLog to 14 units and continue low corrective.
Discussed with nurse. Will cont to follow.
01/15 States he used to see Dr. Jayro Rosado but he doesn't like him so is looking for a new endo. He has been asked not to return to his primary doctor so is looking for a new primary doctor. He asked for an insulin pump and a 'patch' early childhood educator aide. He
states he has a sandi but needs the early childhood educator aide. Suggested he use his phone to receive glucose results but he states 'it is all messed up'. Advised to call [facility] and they could send a new early childhood educator aide. I provided information about the process to start
an insulin pump - prescribing doctor, insurance confirmation of coverage, and the training which is ~ 2 hours. Patient states he has a meter but not sure about test strips. He does not know the name of the meter so will be unable to provide RX for
strips. Suggested he try [employer] brand as that is more affordable.
Diabetes History
- -
Type of Diabetes: 2 requiring insulin
Pre-Admission Diabetes Regimen
01/17/25
06:17
Creatinine 1.3
Lab Results
Hemoglobin A1c 10.5 % (4.0-5.6) H 01/10/25 05:50
Insulin Pump Settings
IP Diabetes Regimen
01/16/25 01/16/25 01/16/25
12:43 13:07 13:40
Glucose
POC Glucose 66 L 59 L 107 H
01/16/25 01/16/25 01/17/25
16:47 21:22 06:17
Glucose 226 H
POC Glucose 321 H 237 H
01/17/25
07:11
Glucose
POC Glucose 220 H
Patient Education
[2025-01-17] MEDS: BENTYL 20 MG PO ×4 (08:08→21:36)
[2025-01-17] MEDS: NEURONTIN 300 MG PO ×2 (08:08→21:36)
[2025-01-17] MEDS: MAGNESIUM OXIDE 400 MG PO (08:08)
[2025-01-17] MEDS: TOPROL XL 12.5 MG PO (08:08)
[2025-01-17] MEDS: ASPIR LOW (ENTERIC COATED) 81 MG PO (08:08)
[2025-01-17] MEDS: HEPARIN SC ×2 (08:09→21:04)
[2025-01-17] MEDS: PROGRAF 3 MG PO ×2 (08:12→21:47)
[2025-01-17] MEDS: MYFORTIC DELAYED REL. PO (08:14)
[2025-01-17] MEDS: NOVOLOG FLEXPEN-LOW RESISTANCE 2 UNITS SC ×2 (09:49→17:41)
[2025-01-17] MEDS: NOVOLOG FLEXPEN SC (09:54)
[2025-01-17] MEDS: NSS 1000 IV (11:35)
--- NOTE | 2025-01-17 11:56 | W.PN.HOSP.TC ---
Today's Communication/Plan
-
Bentyl. PPI. GI reeval
Assessment / Plan
Assessment / Plan
Physical exam:
General: Acutely ill
HEENT: Normocephalic, Atraumatic and Moist Mucous Membranes
Respiratory: Clear to Auscultation; Negative Wheezes, Rales or Rhonchi
Cardiac: Regular Rhythm and S1/S2
GI: Soft, tender and Nondistended
Musculoskeletal: No Clubbing, No Cyanosis and No Edema
Neuro: Awake, Alert and Oriented, no neurological deficits
Psych: Calm
Impression:
64-year-old male past medical history of liver cirrhosis secondary to chronic hepatitis C status post liver transplant/kidney transplant, anemia of chronic disease, diabetes, chronic right hip pain, chronic back pain, CAD status post stents,
bilateral lower extremity DVT with IVC filter, BPH status post TURP, former smoker, presenting with abdominal pain and diarrhea. Symptoms started 4 ago have been constant since then. He has diffuse abdominal pain worse in the lower abdomen. He
has nausea without vomiting. No fevers or chills. He has chronic mild urine incontinence since prior prostate biopsy but no acute urinary symptoms.
In the ER CT abdomen pelvis shows mild rectosigmoid wall thickening, possibly related to underdistention, clinical correlation recommended to exclude possibility proctocolitis, mild diverticulosis, possible mild diverticulitis at the junction of the
distal descending colon proximal sigmoid colon, mild to moderate colonic fecal burden, central lucency of the prostate gland suggesting a TURP defect versus central gland prostatic cyst.
Patient was started on IV Zosyn and admitted to the hospital service.
Next morning LFTs was extremely elevated compared to normal value on admission.
GI consulted.
LFTs improved.
US abdomen with Doppler showed:
1. Patent hepatic vasculature with appropriate directional flow, as described above. Altered flow in the hepatic veins likely related to chronic liver disease.
2. Progressed hydronephrosis of the left lower quadrant transplant kidney.
MRCP showed:
Choledocholithiasis with upstream common bile duct dilatation.
Splenomegaly.
For ERCP 01/13
Assessment/plan:
Acute proctocolitis/diverticulitis
-CT abdomen pelvis shows mild rectosigmoid wall thickening, possibly related to underdistention, clinical correlation recommended to exclude possibility proctocolitis, mild diverticulosis, possible mild diverticulitis at the junction of the distal
descending colon proximal sigmoid colon, mild to moderate colonic fecal burden, central lucency of the prostate gland suggesting a TURP defect versus central gland prostatic cyst
Patient was n.p.o. then for liquid diet, will advance to low residual
Continue Zosyn for now
Appreciate GI .
Transaminitis.
LFTs within normal limits on day of admission
Elevated next day.
No hypotension
GI consulted.
LFTs improved.
US abdomen with Doppler showed:
1. Patent hepatic vasculature with appropriate directional flow, as described above. Altered flow in the hepatic veins likely related to chronic liver disease.
2. Progressed hydronephrosis of the left lower quadrant transplant kidney.
MRCP showed:
Choledocholithiasis with upstream common bile duct dilatation.
Splenomegaly.
For ERCP today
01/14:
Bump on LFTs today (ERCP yesterday)
Discussed with patient in case there is any need for transfer to tertiary care center but he is very adamant that he does not want to go back.
Stool studies mostly negative for infection
Discussed with GI and plan to repeat ERCP tomorrow
Continue antibiotics
Trend LFTs in a.m.
01/15:
N.p.o. per GI guidance for possible repeat ERCP today
LFTs are trending down
Continue to trend LFTs
01/16:
Patient had ERCP yesterday and prior biliary sphincterotomy. Open but had a biliary stricture in the upper third of the main bile duct so dilated and was swept and sludge was found status post stent in the common hepatic duct.
LFTs continue to trend down and will monitor in a.m.
Tolerating diabetic diet
Follow-up GI recommendations
01/17:
Antibiotics discontinued last evening
LFTs continue to trend down
Continue Bentyl
Will add oral PPI twice daily
Discussed with patient about positive discharge and patient adamantly states that he would not go and he has not been cleared by GI. I reached out to GI today and they will reevaluate him over the next 24 hours to assess him for discharge readiness.
ROXY
On IV fluids
Creatinine peaked to 2.1 and down to 1.3 today
Baseline creatinine around 1.1-1.3
01/17:
Creatinine down to 1.3 today
Stop IV fluid
Repeat renal function in a.m. off IV fluids
Hyperkalemia
Resolved with IV fluids and improvement of ROXY
Low potassium diet
Cellulitis/wound right lower extremity
- Zosyn-added probiotic
01/17:
Completed course of antibiotics. Continue to reevaluate
Hyperglycemia likely secondary to infection/insulin noncompliance
Type 2 diabetes
Blood sugar 513 on admission
Patient not able to take his insulin prescriptions at home.
Does not have glucometer
- No acidosis or anion gap
Initially was on Lantus 12 nightly, increased to 18 (takes 24 at home)
Premeal insulin 3 units
Patient with be given prescriptions for glucometer and insulin at discharge
01/14:
Give 8 units of short acting insulin extra today
Currently on Lantus 18 units and NovoLog 3 units before meals--> planning to increase basal insulin but since he is going to be n.p.o. tomorrow we will reevaluate.
ADMINISTRATIVE PERSONAL ASSISTANT diabetic eval
Continue to monitor blood sugars closely
01/15:
He had extra 5 units this morning. No changes on Lantus last evening since anticipating being n.p.o. today but blood sugars today over the 300s even fasting.
Increase Lantus to 24 units at nighttime
Increase Humalog to 8 units before meals
Continue insulin sliding scale, low resistance
01/17:
Continue current diabetic regimen
Chronic thrombocytopenia secondary to cirrhosis
- Stable
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
- Continue tacrolimus, mycophenolate
Anemia of chronic disease
- Hemoglobin stable at 12.6
Chronic right hip pain
Chronic back pain
- Continue gabapentin
CAD status post stents
- Continue metoprolol
- Continue aspirin
Bilateral lower extremity DVT with IVC filter
BPH status post TURP
Prior drug use
Former smoker
Restless leg syndrome
-continue ropinirole
CODE STATUS: Full code
DVT prophylaxis: Heparin
Diet: 1200 urbano diabetic diet
Disposition: Repeat ERCP tomorrow
Total time spent on today's encounter was 37 minutes which included time spent in counseling the patient/family regarding diagnosis and treatment plan as listed above, goals of care, and symptom management. Case was discussed with nursing staff,
specialists, and care coordinators/case management. All labs and imaging personally reviewed by me. Remainder the time spent in detailed review of previous records, lab data, imaging, and other medical provider documentation.
Anticipated Discharge: 24 - 48 hours
Subjective/Interval History
-
Date of Service: January 17, 2025
Patient continues to have abdominal pain. No vomiting. Afebrile
Objective Data
-
Labs:
Laboratory Results
01/17/25
06:17
WBC 6.4
Hgb 12.1 L
Hct 36.2 L
Plt Count 130
PT 12.7
INR 0.91
Sodium 136
Potassium 4.7
Chloride 105
Carbon Dioxide 30
BUN 17
Creatinine 1.3
Glucose 226 H
Calcium 9.2
Total Bilirubin 0.8
AST 34
ALT 128 H
Alkaline Phosphatase 248 H
Vital Signs:
Vital Signs
Temp Pulse Resp BP Pulse Ox
97.5 F 74 18 137/65 98
01/17/25 07:07 01/17/25 07:07 01/17/25 07:07 01/17/25 07:07 01/17/25 07:07
I&O
01/16/25 01/17/25 01/18/25
06:59 06:59 06:59
Intake Total 840 / 840 240 / 240
Output Total 2074
Balance 840 / 840 -1835 / -1835
[2025-01-17 12:43] LABS: Glucose - Point of Care 251 mg/dl (70-99)
[2025-01-17] MEDS: NOVOLOG FLEXPEN 11 UNITS SC (12:50)
[2025-01-17] MEDS: NOVOLOG FLEXPEN-LOW RESISTANCE 3 UNITS SC (12:51)
[2025-01-17 14:56] VITALS: BP 117/61
--- NOTE | 2025-01-17 15:19 | CM ---
Pt remains hospitalized at this time. He anticipates discharge to home when medically cleared; denies needs at discharge and will drive himself home.
Pt seen by the applications support engineer; Patient has a meter but not sure about test strips. He does not know the name of the meter so the Computer Systems Security Analyst is not able to provide RX for strips. She suggested he try [employer] brand as that is more
affordable.
[2025-01-17 16:41] LABS: Glucose - Point of Care 218 mg/dl (70-99)
[2025-01-17] MEDS: NSS IV (17:38)
[2025-01-17] MEDS: NOVOLOG FLEXPEN 14 UNITS SC (17:42)
[2025-01-17] MEDS: LANTUS 0.32 UNITS SC (21:35)
[2025-01-17 21:36] LABS: Glucose - Point of Care 226 mg/dl (70-99)
[2025-01-17] MEDS: PROTONIX 40 MG PO (21:36)
[2025-01-17] MEDS: REQUIP 0.5 MG PO (21:36)
[2025-01-17] MEDS: MYFORTIC DELAYED REL. 180 MG PO (21:47)
[2025-01-17 23:00] VITALS: BP 116/51
[2025-01-18] MEDS: DILAUDID 0.5 MG IV (01:47)
[2025-01-18 07:06] LABS: Hematocrit 36.2 % (39.0-52.0); Hemoglobin 11.9 g/dL (13.0-18.0); Mean Corp Hgb Conc. 32.9 g/dL (33.0-37.0); Mean Corpuscular Volume 88.1 fL (80.0-94.0); Platelet Count 122 10^3/uL (130-400); Red Cell Dist. Width 14.8 % (11.5-14.5)
[2025-01-18 07:07] LABS: INR 0.97; PT 13.2 Sec (11.4-14.6)
[2025-01-18 07:24] LABS: ALT (SGPT) 95 U/L (0-50); AST (SGOT) 30 U/L (17-59); Albumin 3.2 g/dl (3.5-5.0); Alkaline Phosphatase 205 U/L (38-126); Blood Urea Nitrogen 20 mg/dl (9-20); Calcium 8.8 mg/dl (8.4-10.2); Carbon Dioxide 27 mmol/L (22-30); Chloride 104 mmol/L (98-107); Estimated Creatinine Clearance 61 ml/min; Glucose 290 mg/dl (70-99); Potassium 4.9 mmol/L (3.5-5.1); Sodium 134 mmol/L (135-145); Total Protein 5.7 g/dl (6.3-8.2); eGFR > 60.00
[2025-01-18 08:37] LABS: Glucose - Point of Care 252 mg/dl (70-99)
[2025-01-18 09:29] VITALS: BP 125/64
[2025-01-18] MEDS: ASPIR LOW (ENTERIC COATED) 81 MG PO (09:47)
[2025-01-18] MEDS: PROTONIX 40 MG PO ×2 (09:47→21:59)
[2025-01-18] MEDS: TOPROL XL 12.5 MG PO (09:47)
[2025-01-18] MEDS: NEURONTIN 300 MG PO ×2 (09:47→21:59)
[2025-01-18] MEDS: BENTYL 20 MG PO ×4 (09:48→21:59)
[2025-01-18] MEDS: MAGNESIUM OXIDE 400 MG PO (09:48)
[2025-01-18] MEDS: NOVOLOG FLEXPEN 14 UNITS SC ×3 (09:49→17:54)
[2025-01-18] MEDS: MYFORTIC DELAYED REL. PO ×2 (09:50→09:58)
[2025-01-18] MEDS: NOVOLOG FLEXPEN-LOW RESISTANCE 3 UNITS SC (09:50)
[2025-01-18] MEDS: PROGRAF 3 MG PO ×2 (09:52→22:01)
[2025-01-18] MEDS: HEPARIN SC ×2 (09:52→21:58)
--- NOTE | 2025-01-18 11:11 | W.PN.HOSP.TC ---
Today's Communication/Plan
-
CT of the abdomen pelvis
Assessment / Plan
Assessment / Plan
Physical exam:
General: Acutely ill
HEENT: Normocephalic, Atraumatic and Moist Mucous Membranes
Respiratory: Clear to Auscultation; Negative Wheezes, Rales or Rhonchi
Cardiac: Regular Rhythm and S1/S2
GI: Soft, tender and Nondistended
Musculoskeletal: No Clubbing, No Cyanosis and No Edema
Neuro: Awake, Alert and Oriented, no neurological deficits
Psych: Calm
Impression:
64-year-old male past medical history of liver cirrhosis secondary to chronic hepatitis C status post liver transplant/kidney transplant, anemia of chronic disease, diabetes, chronic right hip pain, chronic back pain, CAD status post stents,
bilateral lower extremity DVT with IVC filter, BPH status post TURP, former smoker, presenting with abdominal pain and diarrhea. Symptoms started 4 ago have been constant since then. He has diffuse abdominal pain worse in the lower abdomen. He
has nausea without vomiting. No fevers or chills. He has chronic mild urine incontinence since prior prostate biopsy but no acute urinary symptoms.
In the ER CT abdomen pelvis shows mild rectosigmoid wall thickening, possibly related to underdistention, clinical correlation recommended to exclude possibility proctocolitis, mild diverticulosis, possible mild diverticulitis at the junction of the
distal descending colon proximal sigmoid colon, mild to moderate colonic fecal burden, central lucency of the prostate gland suggesting a TURP defect versus central gland prostatic cyst.
Patient was started on IV Zosyn and admitted to the hospital service.
Next morning LFTs was extremely elevated compared to normal value on admission.
GI consulted.
LFTs improved.
US abdomen with Doppler showed:
1. Patent hepatic vasculature with appropriate directional flow, as described above. Altered flow in the hepatic veins likely related to chronic liver disease.
2. Progressed hydronephrosis of the left lower quadrant transplant kidney.
MRCP showed:
Choledocholithiasis with upstream common bile duct dilatation.
Splenomegaly.
For ERCP 01/13
Assessment/plan:
Acute proctocolitis/diverticulitis
-CT abdomen pelvis shows mild rectosigmoid wall thickening, possibly related to underdistention, clinical correlation recommended to exclude possibility proctocolitis, mild diverticulosis, possible mild diverticulitis at the junction of the distal
descending colon proximal sigmoid colon, mild to moderate colonic fecal burden, central lucency of the prostate gland suggesting a TURP defect versus central gland prostatic cyst
Patient was n.p.o. then for liquid diet, will advance to low residual
Continue Zosyn for now
Appreciate GI .
Transaminitis.
LFTs within normal limits on day of admission
Elevated next day.
No hypotension
GI consulted.
LFTs improved.
US abdomen with Doppler showed:
1. Patent hepatic vasculature with appropriate directional flow, as described above. Altered flow in the hepatic veins likely related to chronic liver disease.
2. Progressed hydronephrosis of the left lower quadrant transplant kidney.
MRCP showed:
Choledocholithiasis with upstream common bile duct dilatation.
Splenomegaly.
For ERCP today
01/14:
Bump on LFTs today (ERCP yesterday)
Discussed with patient in case there is any need for transfer to tertiary care center but he is very adamant that he does not want to go back.
Stool studies mostly negative for infection
Discussed with GI and plan to repeat ERCP tomorrow
Continue antibiotics
Trend LFTs in a.m.
01/15:
N.p.o. per GI guidance for possible repeat ERCP today
LFTs are trending down
Continue to trend LFTs
01/16:
Patient had ERCP yesterday and prior biliary sphincterotomy. Open but had a biliary stricture in the upper third of the main bile duct so dilated and was swept and sludge was found status post stent in the common hepatic duct.
LFTs continue to trend down and will monitor in a.m.
Tolerating diabetic diet
Follow-up GI recommendations
01/17:
Antibiotics discontinued last evening
LFTs continue to trend down
Continue Bentyl
Will add oral PPI twice daily
Discussed with patient about positive discharge and patient adamantly states that he would not go and he has not been cleared by GI. I reached out to GI today and they will reevaluate him over the next 24 hours to assess him for discharge readiness.
01/18:
After discussion with patient and concern that narcotics actually are making things worse to discontinue narcotics. Also there is concerns for drug-seeking behavior but we should repeat CT scan of the abdomen pelvis today to make sure no new
pathology is going on.
Discussed with GI who just saw him and note is not uploaded yet-GI agree with current plan as above.
Plan for CT of the abdomen pelvis with oral and IV contrast today.
We might consider bicarb infusion for renal protection to avoid contrast-induced nephropathy but will reevaluate.
Nonnarcotic pain control
Hemoglobin stable 11.9; creatinine stable at 1.3; LFTs continue to trend down.
Further recommendations or discharge disposition pending on CT images and clinical course.
ROXY
On IV fluids
Creatinine peaked to 2.1 and down to 1.3 today
Baseline creatinine around 1.1-1.3
01/17:
Creatinine down to 1.3 today
Stop IV fluid
Repeat renal function in a.m. off IV fluids
01/18:
Creatinine stable at 1.3
We might consider bicarb infusion for renal protection to avoid contrast-induced nephropathy but will reevaluate.
Hyperkalemia
Resolved with IV fluids and improvement of ROXY
Low potassium diet
Cellulitis/wound right lower extremity
- Zosyn-added probiotic
01/17:
Completed course of antibiotics. Continue to reevaluate
Hyperglycemia likely secondary to infection/insulin noncompliance
Type 2 diabetes
Blood sugar 513 on admission
Patient not able to take his insulin prescriptions at home.
Does not have glucometer
- No acidosis or anion gap
Initially was on Lantus 12 nightly, increased to 18 (takes 24 at home)
Premeal insulin 3 units
Patient with be given prescriptions for glucometer and insulin at discharge
01/14:
Give 8 units of short acting insulin extra today
Currently on Lantus 18 units and NovoLog 3 units before meals--> planning to increase basal insulin but since he is going to be n.p.o. tomorrow we will reevaluate.
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
Continue to monitor blood sugars closely
01/15:
He had extra 5 units this morning. No changes on Lantus last evening since anticipating being n.p.o. today but blood sugars today over the 300s even fasting.
Increase Lantus to 24 units at nighttime
Increase Humalog to 8 units before meals
Continue insulin sliding scale, low resistance
01/17:
Continue current diabetic regimen
Chronic thrombocytopenia secondary to cirrhosis
- Stable
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
- Continue tacrolimus, mycophenolate
Anemia of chronic disease
- Hemoglobin stable at 12.6
Chronic right hip pain
Chronic back pain
- Continue gabapentin
CAD status post stents
- Continue metoprolol
- Continue aspirin
Bilateral lower extremity DVT with IVC filter
BPH status post TURP
Prior drug use
Former smoker
Restless leg syndrome
-continue ropinirole
CODE STATUS: Full code
DVT prophylaxis: Heparin
Diet: 1200 urbano diabetic diet
Disposition: Repeat ERCP tomorrow
Total time spent on today's encounter was 55 minutes which included time spent in counseling the patient/family regarding diagnosis and treatment plan as listed above, goals of care, and symptom management. Case was discussed with nursing staff,
specialists, and care coordinators/case management. All labs and imaging personally reviewed by me. Remainder the time spent in detailed review of previous records, lab data, imaging, and other medical provider documentation.
Anticipated Discharge: 24 - 48 hours
Subjective/Interval History
-
Date of Service: January 18, 2025
Patient continues to complain of abdominal pain. No vomiting. Afebrile
Objective Data
-
Labs:
Laboratory Results
01/18/25
06:29
WBC 6.4
Hgb 11.9 L
Hct 36.2 L
Plt Count 122 L
PT 13.2
INR 0.97
Sodium 134 L
Potassium 4.9
Chloride 104
Carbon Dioxide 27
BUN 20
Creatinine 1.3
Glucose 290 H
Calcium 8.8
Total Bilirubin 1.0
AST 30
ALT 95 H
Alkaline Phosphatase 205 H
Vital Signs:
Vital Signs
Temp Pulse Resp BP Pulse Ox
98.1 F 79 18 125/64 98
01/18/25 09:29 01/18/25 09:47 01/18/25 09:29 01/18/25 09:47 01/18/25 09:29
I&O
01/17/25 01/18/25 01/19/25
06:59 06:59 06:59
Intake Total 240 / 240 960 / 960 880 / 880
Output Total 2074 / 1999 1200 / 1200
Balance -1835 / -1835 -1040 / -1040 -320 / -320
[2025-01-18 12:46] LABS: Glucose - Point of Care 131 mg/dl (70-99)
[2025-01-18] MEDS: NOVOLOG FLEXPEN-LOW RESISTANCE SC (12:53)
[2025-01-18] MEDS: OMNIPAQUE 50 ML PO (14:11)
--- NOTE | 2025-01-18 15:48 | W.PN.GI.CBS2 ---
Today's Communication / Plan
-
repeat CT abd/ pel with contrast
Assessment / Plan
-
Requested by medical team about reevaluation of abdominal pain. Patient has been complaining of abdominal pain and has been on pain medication during this admission ? narcotic bowel vs pain seeking behavior . He admits to eating food without any
vomiting. denies any diarrhea now. Prior GI records reviewed. Patient had EGD/colonoscopy earlier this year. He underwent ERCP x [address] Villalobos during this admission.Liver test trending down. Lipase normal. prior hx of cholecystectomy.
Patient was also treated for acute diverticulitis during this admission with IV antibiotics.
Would recommend repeating CT abdomen/pelvis with contrast
If CT abdomen/pelvis-no acute finding would recommend follow-up with GI-Dr. Villalobos as outpatient. Patient requires repeat EGD in 4 weeks with removal of biliary stent with Dr. Villalobos.
Patient also requires follow-up with transplant finishing technician at [facility] after discharge with repeat LFT
case discussed with hospitalist
Total Time Spent with Patient (in minutes): 35
Subjective
Subjective
Date of Service: January 18, 2025
Complaining of lower abdominal pain. Able to eat without vomiting. Currently off narcotics
Objective
Data Reviewed
Laboratory Data:
Laboratory Results
01/18/25 06:29
01/18/25 06:29
Laboratory Results
PT 13.2 Sec (11.4-14.6) 01/18/25 06:29
INR 0.97 01/18/25 06:29
Total Bilirubin 1.0 mg/dl (0.2-1.3) 01/18/25 06:29
AST 30 U/L (17-59) 01/18/25 06:29
ALT 95 U/L (0-50) H 01/18/25 06:29
Alkaline Phosphatase 205 U/L (38-126) H 01/18/25 06:29
Lipase 56 U/L (23-300) 01/17/25 06:17
Vital Signs and I&O:
Vital Signs
Temp Pulse Resp BP Pulse Ox
98.1 F 79 18 125/64 98
01/18/25 09:29 01/18/25 09:47 01/18/25 09:29 01/18/25 09:47 01/18/25 09:29
I&O
01/17/25 01/18/25 01/19/25
06:59 06:59 06:59
Intake Total 240 / 240 960 / 960 880 / 880
Output Total 2074 / 2074 1999 / 1999 1200 / 1200
Balance -1835 / -1835 -1040 / -1040 -320 / -320
Physical Exam
Physical Exam
GI: Soft, Non Distended and Tender (Lower abdominal tenderness)
[2025-01-18] MEDS: SODIUM BICARBONATE 1150 MEQ IV (15:51)
--- NOTE | 2025-01-18 15:59 | PTCARENOTE ---
IV infusion of Sodium bicarb ordered pre procedure for CT. Medication sent from pharmacy. Pharmacy contacted- rate to run @240mls/hr. Medication infusing at this time. Awaiting CT scan.
[2025-01-18 16:26] LABS: Glucose - Point of Care 152 mg/dl (70-99)
[2025-01-18 16:58] VITALS: BP 124/64
[2025-01-18] MEDS: NOVOLOG FLEXPEN-LOW RESISTANCE 1 UNITS SC (17:54)
--- NOTE | 2025-01-18 17:54 | PTCARENOTE ---
Pt returned from CT scan and wanting to be disconnected from IV fluids to use the bathroom. Pt getting agitated while this RN was trying to attach IV pump to pole for pt to safely enter the bathroom. Pt raising voice at this RN saying 'just
disconnect me, I am going to piss myself.' This RN asked pt to not raise voice at her. Pt stated 'This isn't yelling, do you want to see yelling?!' This RN said 'no, it sounds like you are threatening me.' Pt stating that he did not threaten me and
asked to speak with the head nurse. This RN removed herself from the room at that time. Another nurse on the floor administered pt's evening medications.
[2025-01-18 21:53] LABS: Glucose - Point of Care 400 mg/dl (70-99)
[2025-01-18] MEDS: REQUIP 0.5 MG PO (21:58)
[2025-01-18] MEDS: LANTUS 0.32 UNITS SC (21:59)
[2025-01-18] MEDS: NOVOLOG FLEXPEN 6 UNITS SC (22:00)
[2025-01-18] MEDS: MYFORTIC DELAYED REL. 180 MG PO (22:01)
[2025-01-18 23:00] VITALS: BP 121/74
[2025-01-19 03:15] LABS: Glucose - Point of Care 258 mg/dl (70-99)
--- NOTE | 2025-01-19 03:18 | PTCARENOTE ---
Blood sugar HS check 400 -- blood sugars throughout dayshift better today than in previous days. With labile glucose checks, ATLON Peoples notified -- one time dose 6 units Novolog ordered, provided Novolog and scheduled 32 units Lantus. Blood
glucose rechecked at 0300 -- 258. Patient resting in bed comfortably, no complaints at this time. Call prasad in reach. Will monitor.
[2025-01-19 06:56] LABS: Hematocrit 32.7 % (39.0-52.0); Hemoglobin 11.7 g/dL (13.0-18.0); Mean Corp Hgb Conc. 35.8 g/dL (33.0-37.0); Mean Corpuscular Volume 84.5 fL (80.0-94.0); Nucleated Red Blood Cells % 0 % (-); Platelet Count 125 10^3/uL (130-400); Red Cell Dist. Width 14.7 % (11.5-14.5)
[2025-01-19 07:01] LABS: INR 1.01; PT 13.6 Sec (11.4-14.6)
[2025-01-19 07:26] LABS: ALT (SGPT) 72 U/L (0-50); AST (SGOT) 24 U/L (17-59); Albumin 3.2 g/dl (3.5-5.0); Alkaline Phosphatase 179 U/L (38-126); Blood Urea Nitrogen 23 mg/dl (9-20); Calcium 8.8 mg/dl (8.4-10.2); Carbon Dioxide 30 mmol/L (22-30); Chloride 103 mmol/L (98-107); Estimated Creatinine Clearance 66 ml/min; Glucose 203 mg/dl (70-99); Potassium 4.2 mmol/L (3.5-5.1); Sodium 135 mmol/L (135-145); Total Protein 5.7 g/dl (6.3-8.2); eGFR > 60.00
[2025-01-19 07:52] VITALS: BP 133/75
[2025-01-19 08:10] LABS: Glucose - Point of Care 206 mg/dl (70-99)
[2025-01-19] MEDS: ASPIR LOW (ENTERIC COATED) 81 MG PO (08:49)
[2025-01-19] MEDS: BENTYL 20 MG PO ×4 (08:49→21:00)
[2025-01-19] MEDS: PROGRAF 3 MG PO ×2 (08:49→21:00)
[2025-01-19] MEDS: MAGNESIUM OXIDE 400 MG PO (08:51)
[2025-01-19] MEDS: PROTONIX 40 MG PO ×2 (08:51→21:00)
[2025-01-19] MEDS: TOPROL XL 12.5 MG PO (08:51)
[2025-01-19] MEDS: NEURONTIN 300 MG PO ×2 (08:51→21:00)
[2025-01-19] MEDS: MYFORTIC DELAYED REL. PO (08:52)
[2025-01-19] MEDS: HEPARIN SC ×2 (08:52→20:59)
[2025-01-19] MEDS: NOVOLOG FLEXPEN-LOW RESISTANCE 2 UNITS SC ×2 (09:43→17:46)
[2025-01-19] MEDS: NOVOLOG FLEXPEN 14 UNITS SC ×3 (09:43→17:45)
[2025-01-19 12:19] LABS: Glucose - Point of Care 149 mg/dl (70-99)
[2025-01-19] MEDS: NOVOLOG FLEXPEN-LOW RESISTANCE SC (12:23)
--- NOTE | 2025-01-19 13:59 | W.PN.HOSP.TC ---
Today's Communication/Plan
-
PPI and Bentyl. Discharge planning
Assessment / Plan
Assessment / Plan
Physical exam:
General: Acutely ill
HEENT: Normocephalic, Atraumatic and Moist Mucous Membranes
Respiratory: Clear to Auscultation; Negative Wheezes, Rales or Rhonchi
Cardiac: Regular Rhythm and S1/S2
GI: Soft, tender and Nondistended
Musculoskeletal: No Clubbing, No Cyanosis and No Edema
Neuro: Awake, Alert and Oriented, no neurological deficits
Psych: Calm
Impression:
64-year-old male past medical history of liver cirrhosis secondary to chronic hepatitis C status post liver transplant/kidney transplant, anemia of chronic disease, diabetes, chronic right hip pain, chronic back pain, CAD status post stents,
bilateral lower extremity DVT with IVC filter, BPH status post TURP, former smoker, presenting with abdominal pain and diarrhea. Symptoms started 4 ago have been constant since then. He has diffuse abdominal pain worse in the lower abdomen. He
has nausea without vomiting. No fevers or chills. He has chronic mild urine incontinence since prior prostate biopsy but no acute urinary symptoms.
In the ER CT abdomen pelvis shows mild rectosigmoid wall thickening, possibly related to underdistention, clinical correlation recommended to exclude possibility proctocolitis, mild diverticulosis, possible mild diverticulitis at the junction of the
distal descending colon proximal sigmoid colon, mild to moderate colonic fecal burden, central lucency of the prostate gland suggesting a TURP defect versus central gland prostatic cyst.
Patient was started on IV Zosyn and admitted to the hospital service.
Next morning LFTs was extremely elevated compared to normal value on admission.
GI consulted.
LFTs improved.
US abdomen with Doppler showed:
1. Patent hepatic vasculature with appropriate directional flow, as described above. Altered flow in the hepatic veins likely related to chronic liver disease.
2. Progressed hydronephrosis of the left lower quadrant transplant kidney.
MRCP showed:
Choledocholithiasis with upstream common bile duct dilatation.
Splenomegaly.
For ERCP 01/13
Assessment/plan:
Acute proctocolitis/diverticulitis
-CT abdomen pelvis shows mild rectosigmoid wall thickening, possibly related to underdistention, clinical correlation recommended to exclude possibility proctocolitis, mild diverticulosis, possible mild diverticulitis at the junction of the distal
descending colon proximal sigmoid colon, mild to moderate colonic fecal burden, central lucency of the prostate gland suggesting a TURP defect versus central gland prostatic cyst
Patient was n.p.o. then for liquid diet, will advance to low residual
Continue Zosyn for now
Appreciate GI .
Transaminitis.
LFTs within normal limits on day of admission
Elevated next day.
No hypotension
GI consulted.
LFTs improved.
US abdomen with Doppler showed:
1. Patent hepatic vasculature with appropriate directional flow, as described above. Altered flow in the hepatic veins likely related to chronic liver disease.
2. Progressed hydronephrosis of the left lower quadrant transplant kidney.
MRCP showed:
Choledocholithiasis with upstream common bile duct dilatation.
Splenomegaly.
For ERCP today
01/14:
Bump on LFTs today (ERCP yesterday)
Discussed with patient in case there is any need for transfer to tertiary care center but he is very adamant that he does not want to go back.
Stool studies mostly negative for infection
Discussed with GI and plan to repeat ERCP tomorrow
Continue antibiotics
Trend LFTs in a.m.
01/15:
N.p.o. per GI guidance for possible repeat ERCP today
LFTs are trending down
Continue to trend LFTs
01/16:
Patient had ERCP yesterday and prior biliary sphincterotomy. Open but had a biliary stricture in the upper third of the main bile duct so dilated and was swept and sludge was found status post stent in the common hepatic duct.
LFTs continue to trend down and will monitor in a.m.
Tolerating diabetic diet
Follow-up GI recommendations
01/17:
Antibiotics discontinued last evening
LFTs continue to trend down
Continue Bentyl
Will add oral PPI twice daily
Discussed with patient about positive discharge and patient adamantly states that he would not go and he has not been cleared by GI. I reached out to GI today and they will reevaluate him over the next 24 hours to assess him for discharge readiness.
01/18:
After discussion with patient and concern that narcotics actually are making things worse to discontinue narcotics. Also there is concerns for drug-seeking behavior but we should repeat CT scan of the abdomen pelvis today to make sure no new
pathology is going on.
Discussed with GI who just saw him and note is not uploaded yet-GI agree with current plan as above.
Plan for CT of the abdomen pelvis with oral and IV contrast today.
We might consider bicarb infusion for renal protection to avoid contrast-induced nephropathy but will reevaluate.
Nonnarcotic pain control
Hemoglobin stable 11.9; creatinine stable at 1.3; LFTs continue to trend down.
Further recommendations or discharge disposition pending on CT images and clinical course.
01/19:
Seen and reviewed CT of the abdomen pelvis no acute pathology identified.
Remains off narcotics.
Remains off antibiotics
Continue PPI and Bentyl.
Discussed with patient discharge planning and he does not want to go home today but is okay to go home tomorrow.
Plan to discharge tomorrow
ROXY
On IV fluids
Creatinine peaked to 2.1 and down to 1.3 today
Baseline creatinine around 1.1-1.3
01/17:
Creatinine down to 1.3 today
Stop IV fluid
Repeat renal function in a.m. off IV fluids
01/18:
Creatinine stable at 1.3
We might consider bicarb infusion for renal protection to avoid contrast-induced nephropathy but will reevaluate.
01/19:
Received bicarb infusion protocol before contrast study and renal function remained stable today creatinine 1.2
Hyperkalemia
Resolved with IV fluids and improvement of ROXY
Low potassium diet
Cellulitis/wound right lower extremity
- Zosyn-added probiotic
01/17:
Completed course of antibiotics. Continue to reevaluate
Hyperglycemia likely secondary to infection/insulin noncompliance
Type 2 diabetes
Blood sugar 513 on admission
Patient not able to take his insulin prescriptions at home.
Does not have glucometer
- No acidosis or anion gap
Initially was on Lantus 12 nightly, increased to 18 (takes 24 at home)
Premeal insulin 3 units
Patient with be given prescriptions for glucometer and insulin at discharge
01/14:
Give 8 units of short acting insulin extra today
Currently on Lantus 18 units and NovoLog 3 units before meals--> planning to increase basal insulin but since he is going to be n.p.o. tomorrow we will reevaluate.
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
Continue to monitor blood sugars closely
01/15:
He had extra 5 units this morning. No changes on Lantus last evening since anticipating being n.p.o. today but blood sugars today over the 300s even fasting.
Increase Lantus to 24 units at nighttime
Increase Humalog to 8 units before meals
Continue insulin sliding scale, low resistance
01/17:
Continue current diabetic regimen
Chronic thrombocytopenia secondary to cirrhosis
- Stable
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
- Continue tacrolimus, mycophenolate
Anemia of chronic disease
- Hemoglobin stable at 12.6
Chronic right hip pain
Chronic back pain
- Continue gabapentin
CAD status post stents
- Continue metoprolol
- Continue aspirin
Bilateral lower extremity DVT with IVC filter
BPH status post TURP
Prior drug use
Former smoker
Restless leg syndrome
-continue ropinirole
CODE STATUS: Full code
DVT prophylaxis: Heparin
Diet: 1200 urbano diabetic diet
Disposition: Repeat ERCP tomorrow
Total time spent on today's encounter was 35 minutes which included time spent in counseling the patient/family regarding diagnosis and treatment plan as listed above, goals of care, and symptom management. Case was discussed with nursing staff,
specialists, and care coordinators/case management. All labs and imaging personally reviewed by me. Remainder the time spent in detailed review of previous records, lab data, imaging, and other medical provider documentation.
Anticipated Discharge: Within 24 hours
Subjective/Interval History
-
Date of Service: January 19, 2025
Patient continues to have abdominal pain but no nausea or vomiting and tolerating diet. Remains afebrile.
Objective Data
-
Labs:
Laboratory Results
01/19/25
06:10
WBC 6.1
Hgb 11.7 L
Hct 32.7 L
Plt Count 125 L
PT 13.6
INR 1.01
Sodium 135
Potassium 4.2
Chloride 103
Carbon Dioxide 30
BUN 23 H
Creatinine 1.2
Glucose 203 H
Calcium 8.8
Total Bilirubin 1.0
AST 24
ALT 72 H
Alkaline Phosphatase 179 H
Vital Signs:
Vital Signs
Temp Pulse Resp BP Pulse Ox
97.4 F 68 16 133/75 97
01/19/25 07:52 01/19/25 07:52 01/19/25 07:52 01/19/25 07:52 01/19/25 07:52
I&O
01/18/25 01/19/25 01/20/25
06:59 06:59 06:59
Intake Total 960 / 960 2260 / 2260
Output Total 1999 / 1999 2950 / 2950
Balance -1040 / -1040 -690 / -690
[2025-01-19 15:40] VITALS: BP 110/59
--- NOTE | 2025-01-19 16:57 | PTCARENOTE ---
pt continues to report abd pain, no stools, tolerating diet, denied need to Tylenol when offered, independent, vss, will continue to monitor
[2025-01-19 17:34] LABS: Glucose - Point of Care 210 mg/dl (70-99)
[2025-01-19] MEDS: MYFORTIC DELAYED REL. 180 MG PO (21:00)
[2025-01-19] MEDS: REQUIP 0.5 MG PO (21:00)
[2025-01-19] MEDS: LANTUS 0.32 UNITS SC (21:01)
[2025-01-19 21:06] LABS: Glucose - Point of Care 298 mg/dl (70-99)
[2025-01-19 23:00] VITALS: BP 126/77
[2025-01-20 07:00] VITALS: BP 130/72
[2025-01-20 07:50] LABS: Glucose - Point of Care 264 mg/dl (70-99)
--- NOTE | 2025-01-20 08:07 | PN.DE.MGMTRT ---
Insulin Management
- -
01/20/2025: Diabetes Management Consult Follow up
Patient admitted 01/09 with abdominal pain, diarrhea, possible diverticulitis/proctocolitis. Diabetes Management consult 01/15. PMH: Liver cirrhosis secondary to chronic hepatitis C status post liver transplant/kidney transplant, anemia of chronic
disease, diabetes, chronic right hip pain, chronic back pain, CAD status post stents, bilateral lower extremity DVT with IVC filter, BPH status post TURP, former smoker. Prior to admission was taking 3 units NovoLog ac with Lantus 24 units @ HS.
Says he has had diabetes since 2010. A1C 10.5%, cr 1.5, eGFR 52.31 on admission; cr up to 2.1, eGFR 34.93-->1.3, eGFR >60 today.
Patient is awake alert and oriented able to discuss diabetes care.
Patient's HS glucose was 298, received 32 units Lantus @ HS, fasting glucose 264 POC this AM.
Will increase hs Lantus to 35 units.
01/19 premeal glucose range 149 to 210, required 2 units corrective insulin with breakfast and dinner.
Will increase AC NovoLog to 16 units and continue low corrective.
Discussed with nurse. Will cont to follow.
Meds at discharge: Lantus 35 units at HS and NovoLog 16 units AC.
01/15 States he used to see Dr. Jayro Rosado but he doesn't like him so is looking for a new endo. He has been asked not to return to his primary doctor so is looking for a new primary doctor. He asked for an insulin pump and a 'patch' firearms instructor. He
states he has a sandi but needs the firearms instructor. Suggested he use his phone to receive glucose results but he states 'it is all messed up'. Advised to call [employer] and they could send a new firearms instructor. I provided information about the process to start
an insulin pump - prescribing doctor, insurance confirmation of coverage, and the training which is ~ 2 hours. Patient states he has a meter but not sure about test strips. He does not know the name of the meter so will be unable to provide RX for
strips. Suggested he try [employer] brand as that is more affordable.
Diabetes History
- -
Type of Diabetes: 2 requiring insulin
Pre-Admission Diabetes Regimen
Lab Results
Hemoglobin A1c 10.5 % (4.0-5.6) H 01/10/25 05:50
Insulin Pump Settings
IP Diabetes Regimen
01/19/25 01/19/25 01/19/25
08:09 12:18 17:33
POC Glucose 206 H 149 H 210 H
01/19/25 01/20/25
21:05 07:49
POC Glucose 298 H 264 H
Meal type: Dinner
Meal type: Lunch
Meal type: Breakfast
Amount consumed: 100%
Amount consumed: 100%
Amount consumed: 100%
Patient Education
[2025-01-20 08:25] LABS: Hematocrit 34.3 % (39.0-52.0); Hemoglobin 12.1 g/dL (13.0-18.0); Mean Corp Hgb Conc. 35.3 g/dL (33.0-37.0); Mean Corpuscular Volume 87.1 fL (80.0-94.0); Platelet Count 127 10^3/uL (130-400); Red Cell Dist. Width 14.6 % (11.5-14.5)
[2025-01-20] MEDS: NOVOLOG FLEXPEN SC (08:38)
[2025-01-20] MEDS: ASPIR LOW (ENTERIC COATED) 81 MG PO (09:04)
[2025-01-20] MEDS: NEURONTIN 300 MG PO (09:04)
[2025-01-20] MEDS: BENTYL 20 MG PO (09:04)
[2025-01-20] MEDS: PROTONIX 40 MG PO (09:04)
[2025-01-20] MEDS: TOPROL XL 12.5 MG PO (09:04)
[2025-01-20] MEDS: MAGNESIUM OXIDE 400 MG PO (09:04)
[2025-01-20] MEDS: HEPARIN SC (09:05)
[2025-01-20] MEDS: PROGRAF 3 MG PO (09:07)
[2025-01-20] MEDS: MYFORTIC DELAYED REL. PO (09:07)
[2025-01-20 09:13] LABS: ALT (SGPT) 57 U/L (0-50); AST (SGOT) 21 U/L (17-59); Albumin 3.4 g/dl (3.5-5.0); Alkaline Phosphatase 173 U/L (38-126); Blood Urea Nitrogen 27 mg/dl (9-20); Calcium 8.6 mg/dl (8.4-10.2); Carbon Dioxide 27 mmol/L (22-30); Chloride 104 mmol/L (98-107); Estimated Creatinine Clearance 61 ml/min; Glucose 264 mg/dl (70-99); Potassium 4.7 mmol/L (3.5-5.1); Sodium 135 mmol/L (135-145); Total Protein 5.9 g/dl (6.3-8.2); eGFR > 60.00
[2025-01-20] MEDS: NOVOLOG FLEXPEN 16 UNITS SC (09:29)
[2025-01-20] MEDS: NOVOLOG FLEXPEN-LOW RESISTANCE 3 UNITS SC (09:29)
--- NOTE | 2025-01-20 09:47 | CM ---
Pt is cleared for discharge to home today. IMM given, signed and placed on chart.
No needs identified. Pt will drive himself home.
[2025-01-20] MEDS: FLUZONE (6 mos+) 2025-2026 FORMULA 0.5 ML IM (10:20)
--- NOTE | 2025-01-20 13:40 | W.PN.HOSP.TC ---
Today's Communication/Plan
-
Discharge home today
Assessment / Plan
Assessment / Plan
Impression:
64-year-old male past medical history of liver cirrhosis secondary to chronic hepatitis C status post liver transplant/kidney transplant, anemia of chronic disease, diabetes, chronic right hip pain, chronic back pain, CAD status post stents,
bilateral lower extremity DVT with IVC filter, BPH status post TURP, former smoker, presenting with abdominal pain and diarrhea. Symptoms started 4 ago have been constant since then. He has diffuse abdominal pain worse in the lower abdomen. He
has nausea without vomiting. No fevers or chills. He has chronic mild urine incontinence since prior prostate biopsy but no acute urinary symptoms.
In the ER CT abdomen pelvis shows mild rectosigmoid wall thickening, possibly related to underdistention, clinical correlation recommended to exclude possibility proctocolitis, mild diverticulosis, possible mild diverticulitis at the junction of the
distal descending colon proximal sigmoid colon, mild to moderate colonic fecal burden, central lucency of the prostate gland suggesting a TURP defect versus central gland prostatic cyst.
Patient was started on IV Zosyn and admitted to the hospital service.
Next morning LFTs was extremely elevated compared to normal value on admission.
GI consulted.
LFTs improved.
US abdomen with Doppler showed:
1. Patent hepatic vasculature with appropriate directional flow, as described above. Altered flow in the hepatic veins likely related to chronic liver disease.
2. Progressed hydronephrosis of the left lower quadrant transplant kidney.
MRCP showed:
Choledocholithiasis with upstream common bile duct dilatation.
Splenomegaly.
He underwent ERCP x 2 during this admission.
Liver enzyme trending down. Lipase normal. prior hx of cholecystectomy.
Patient was also treated for acute diverticulitis during this admission, completed IV antibiotics.
GI recommend repeating CT abdomen/pelvis with contrast which shows:
Assessment/plan:
Acute proctocolitis/diverticulitis
-CT abdomen pelvis shows mild rectosigmoid wall thickening, possibly related to underdistention, clinical correlation recommended to exclude possibility proctocolitis, mild diverticulosis, possible mild diverticulitis at the junction of the distal
descending colon proximal sigmoid colon, mild to moderate colonic fecal burden, central lucency of the prostate gland suggesting a TURP defect versus central gland prostatic cyst
Patient was n.p.o. then for liquid diet, will advance to low residual
Completed Zosyn, now off Abx.
Appreciate GI input.
Transaminitis.
LFTs within normal limits on day of admission
Elevated next day.
No hypotension
GI consulted.
LFTs improved.
US abdomen with Doppler showed:
1. Patent hepatic vasculature with appropriate directional flow, as described above. Altered flow in the hepatic veins likely related to chronic liver disease.
2. Progressed hydronephrosis of the left lower quadrant transplant kidney.
MRCP showed:
Choledocholithiasis with upstream common bile duct dilatation.
Splenomegaly.
For ERCP today
01/14:
Bump on LFTs today (ERCP yesterday)
Discussed with patient in case there is any need for transfer to tertiary care center but he is very adamant that he does not want to go back.
Stool studies mostly negative for infection
Discussed with GI and plan to repeat ERCP tomorrow
Continue antibiotics
Trend LFTs in a.m.
01/15:
N.p.o. per GI guidance for possible repeat ERCP today
LFTs are trending down
Continue to trend LFTs
01/16:
Patient had ERCP yesterday and prior biliary sphincterotomy. Open but had a biliary stricture in the upper third of the main bile duct so dilated and was swept and sludge was found status post stent in the common hepatic duct.
LFTs continue to trend down and will monitor in a.m.
Tolerating diabetic diet
Follow-up GI recommendations
01/17:
Antibiotics discontinued last evening
LFTs continue to trend down
Continue Bentyl
Will add oral PPI twice daily
Discussed with patient about positive discharge and patient adamantly states that he would not go and he has not been cleared by GI. I reached out to GI today and they will reevaluate him over the next 24 hours to assess him for discharge readiness.
01/18:
GI recommends repeat CT of the abdomen pelvis with oral and IV contrast today.
01/19:
Seen and reviewed CT of the abdomen pelvis no acute pathology identified.
Remains off narcotics.
Remains off antibiotics
Continue PPI and Bentyl.
Discussed with patient discharge
01/20
Discharge home today
ROXY
On IV fluids
Creatinine peaked to 2.1 and down to 1.3 today
Baseline creatinine around 1.1-1.3
01/17:
Creatinine down to 1.3 today
Stop IV fluid
Repeat renal function in a.m. off IV fluids
01/18:
Creatinine stable at 1.3
We might consider bicarb infusion for renal protection to avoid contrast-induced nephropathy but will reevaluate.
01/19:
Received bicarb infusion protocol before contrast study and renal function remained stable today creatinine 1.2
Hyperkalemia
Resolved with IV fluids and improvement of ROXY
Low potassium diet
Cellulitis/wound right lower extremity
- Zosyn-added probiotic
01/17:
Completed course of antibiotics. Continue to reevaluate
Hyperglycemia likely secondary to infection/insulin noncompliance
Type 2 diabetes
Blood sugar 513 on admission
Patient not able to take his insulin prescriptions at home.
Does not have glucometer
- No acidosis or anion gap
Initially was on Lantus 12 nightly, increased to 18 (takes 24 at home)
Premeal insulin 3 units
Patient with be given prescriptions for glucometer and insulin at discharge
01/14:
Give 8 units of short acting insulin extra today
Currently on Lantus 18 units and NovoLog 3 units before meals--> planning to increase basal insulin but since he is going to be n.p.o. tomorrow we will reevaluate.
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
Continue to monitor blood sugars closely
01/15:
He had extra 5 units this morning. No changes on Lantus last evening since anticipating being n.p.o. today but blood sugars today over the 300s even fasting.
Increase Lantus to 24 units at nighttime
Increase Humalog to 8 units before meals
Continue insulin sliding scale, low resistance
01/17:
Continue current diabetic regimen
Chronic thrombocytopenia secondary to cirrhosis
- Stable
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
- Continue tacrolimus, mycophenolate
Anemia of chronic disease
- Hemoglobin stable at 12.6
Chronic right hip pain
Chronic back pain
- Continue gabapentin
CAD status post stents
- Continue metoprolol
- Continue aspirin
Bilateral lower extremity DVT with IVC filter
BPH status post TURP
Prior drug use
Former smoker
Restless leg syndrome
-continue ropinirole
CODE STATUS: Full code
DVT prophylaxis: Heparin
Diet: 1200 urbano diabetic diet
Disposition: Discharge home today
Total time spent on today's encounter was 51 minutes which included time spent in counseling the patient/family regarding diagnosis and treatment plan as listed above, goals of care, and symptom management. Case was discussed with nursing staff,
specialists, and care coordinators/case management. All labs and imaging personally reviewed by me. Remainder the time spent in detailed review of previous records, lab data, imaging, and other medical provider documentation.
Anticipated Discharge: Today
Subjective/Interval History
-
Date of Service: January 20, 2025
Patient seen and examined at bedside, denies any chest pain or shortness of breath, still with some abdominal pain, no nausea, no vomiting, no diarrhea or constipation.
Objective Data
-
Labs:
Laboratory Results
01/20/25
07:26
WBC 6.8
Hgb 12.1 L
Hct 34.3 L
Plt Count 127 L
Sodium 135
Potassium 4.7
Chloride 104
Carbon Dioxide 27
BUN 27 H
Creatinine 1.3
Glucose 264 H
Calcium 8.6
Total Bilirubin 1.0
AST 21
ALT 57 H
Alkaline Phosphatase 173 H
Vital Signs:
Vital Signs
Temp Pulse Resp BP Pulse Ox
97.9 F 77 14 130/72 99
01/20/25 07:00 01/20/25 09:04 01/20/25 07:00 01/20/25 09:04 01/20/25 07:00
I&O
01/19/25 01/20/25 01/21/25
06:59 06:59 06:59
Intake Total 2260 / 2260 1709 / 1710
Output Total 2950 / 2950
Balance -690 / -690 0 / 1710
Physical Exam
-
General: Well Developed, Well Nourished, No Apparent Distress and Comfortable
HEENT: Normocephalic, Atraumatic, Moist Mucous Membranes, No Ptosis, PERRLA and Nose Appears Normal
Respiratory: Clear to Auscultation and Non Labored Respirations
Cardiac: Regular Rhythm and S1/S2
Breast: Deferred by me
GI: Soft, Nontender, Nondistended and Normal Bowel Sounds
Genito-urinary: No Costovertebral Tender
Musculoskeletal: No Clubbing, No Cyanosis, No Edema and Other
Skin: Warm
Neuro: Awake, Alert, Oriented, AO x 3 and No Motor Deficits
Psych: Calm
--- NOTE | 2025-01-20 13:45 | W.DCSUMMARY ---
Discharge Summary
Discharge Data
Date of Admission: 01/09/25
Date of Discharge: 01/20/25
Total time spent discharging patient (in min): 40
-
Pending Results: No
Hospital Course
Hospital course
64-year-old male past medical history of liver cirrhosis secondary to chronic hepatitis C status post liver transplant/kidney transplant, anemia of chronic disease, diabetes, chronic right hip pain, chronic back pain, CAD status post stents,
bilateral lower extremity DVT with IVC filter, BPH status post TURP, former smoker, presenting with abdominal pain and diarrhea. Symptoms started 4 ago have been constant since then. He has diffuse abdominal pain worse in the lower abdomen. He
has nausea without vomiting. No fevers or chills. He has chronic mild urine incontinence since prior prostate biopsy but no acute urinary symptoms.
In the ER CT abdomen pelvis shows mild rectosigmoid wall thickening, possibly related to underdistention, clinical correlation recommended to exclude possibility proctocolitis, mild diverticulosis, possible mild diverticulitis at the junction of the
distal descending colon proximal sigmoid colon, mild to moderate colonic fecal burden, central lucency of the prostate gland suggesting a TURP defect versus central gland prostatic cyst.
Patient was started on IV Zosyn and admitted to the hospital service.
Next morning LFTs was extremely elevated compared to normal value on admission.
GI consulted.
LFTs improved.
US abdomen with Doppler showed:
1. Patent hepatic vasculature with appropriate directional flow, as described above. Altered flow in the hepatic veins likely related to chronic liver disease.
2. Progressed hydronephrosis of the left lower quadrant transplant kidney.
MRCP showed:
Choledocholithiasis with upstream common bile duct dilatation.
Splenomegaly.
He underwent ERCP x 2 during this admission.
Liver enzyme trending down. Lipase normal. prior hx of cholecystectomy.
Patient was also treated for acute diverticulitis during this admission, completed IV antibiotics.
GI recommend repeating CT abdomen/pelvis with contrast which shows:
1. No significant acute abnormality identified in the abdomen or pelvis, as described above.
2. Incidental findings as described.
Patient will be discharged home today.
During hospitalization patient was treated from the following
Acute proctocolitis/diverticulitis
-CT abdomen pelvis shows mild rectosigmoid wall thickening, possibly related to underdistention, clinical correlation recommended to exclude possibility proctocolitis, mild diverticulosis, possible mild diverticulitis at the junction of the distal
descending colon proximal sigmoid colon, mild to moderate colonic fecal burden, central lucency of the prostate gland suggesting a TURP defect versus central gland prostatic cyst
Patient was n.p.o. then for liquid diet, will advance to low residual
Completed Zosyn, now off Abx.
Appreciate GI input.
Transaminitis.
LFTs within normal limits on day of admission
Elevated next day.
No hypotension
GI consulted.
LFTs improved.
US abdomen with Doppler showed:
1. Patent hepatic vasculature with appropriate directional flow, as described above. Altered flow in the hepatic veins likely related to chronic liver disease.
2. Progressed hydronephrosis of the left lower quadrant transplant kidney.
MRCP showed:
Choledocholithiasis with upstream common bile duct dilatation.
Splenomegaly.
For ERCP today
01/14:
Bump on LFTs today (ERCP yesterday)
Discussed with patient in case there is any need for transfer to tertiary care center but he is very adamant that he does not want to go back.
Stool studies mostly negative for infection
Discussed with GI and plan to repeat ERCP tomorrow
Continue antibiotics
Trend LFTs in a.m.
01/15:
N.p.o. per GI guidance for possible repeat ERCP today
LFTs are trending down
Continue to trend LFTs
01/16:
Patient had ERCP yesterday and prior biliary sphincterotomy. Open but had a biliary stricture in the upper third of the main bile duct so dilated and was swept and sludge was found status post stent in the common hepatic duct.
LFTs continue to trend down and will monitor in a.m.
Tolerating diabetic diet
Follow-up GI recommendations
01/17:
Antibiotics discontinued last evening
LFTs continue to trend down
Continue Bentyl
Will add oral PPI twice daily
Discussed with patient about positive discharge and patient adamantly states that he would not go and he has not been cleared by GI. I reached out to GI today and they will reevaluate him over the next 24 hours to assess him for discharge readiness.
01/18:
GI recommends repeat CT of the abdomen pelvis with oral and IV contrast today.
01/19:
Seen and reviewed CT of the abdomen pelvis no acute pathology identified.
Remains off narcotics.
Remains off antibiotics
Continue PPI and Bentyl.
Discussed with patient discharge
01/20
Discharge home today
ROXY
On IV fluids
Creatinine peaked to 2.1 and down to 1.3 today
Baseline creatinine around 1.1-1.3
01/17:
Creatinine down to 1.3 today
Stop IV fluid
Repeat renal function in a.m. off IV fluids
01/18:
Creatinine stable at 1.3
We might consider bicarb infusion for renal protection to avoid contrast-induced nephropathy but will reevaluate.
01/19:
Received bicarb infusion protocol before contrast study and renal function remained stable today creatinine 1.2
Hyperkalemia
Resolved with IV fluids and improvement of ROXY
Low potassium diet
Cellulitis/wound right lower extremity
- Zosyn-added probiotic
01/17:
Completed course of antibiotics. Continue to reevaluate
Hyperglycemia likely secondary to infection/insulin noncompliance
Type 2 diabetes
Blood sugar 513 on admission
Patient not able to take his insulin prescriptions at home.
Does not have glucometer
- No acidosis or anion gap
Initially was on Lantus 12 nightly, increased to 18 (takes 24 at home)
Premeal insulin 3 units
Patient with be given prescriptions for glucometer and insulin at discharge
01/14:
Give 8 units of short acting insulin extra today
Currently on Lantus 18 units and NovoLog 3 units before meals--> planning to increase basal insulin but since he is going to be n.p.o. tomorrow we will reevaluate.
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
Continue to monitor blood sugars closely
01/15:
He had extra 5 units this morning. No changes on Lantus last evening since anticipating being n.p.o. today but blood sugars today over the 300s even fasting.
Increase Lantus to 24 units at nighttime
Increase Humalog to 8 units before meals
Continue insulin sliding scale, low resistance
01/17:
Continue current diabetic regimen
Chronic thrombocytopenia secondary to cirrhosis
- Stable
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
- Continue tacrolimus, mycophenolate
Anemia of chronic disease
- Hemoglobin stable at 12.6
Chronic right hip pain
Chronic back pain
- Continue gabapentin
CAD status post stents
- Continue metoprolol
- Continue aspirin
Bilateral lower extremity DVT with IVC filter
BPH status post TURP
Prior drug use
Former smoker
Restless leg syndrome
-continue ropinirole
CODE STATUS: Full code
DVT prophylaxis: Heparin
Diet: 1200 urbano diabetic diet
Disposition: Discharge home today
Total time spent on today's encounter was 40 minutes which included time spent in counseling the patient/family regarding diagnosis and treatment plan as listed above, goals of care, and symptom management. Case was discussed with nursing staff,
specialists, and care coordinators/case management. All labs and imaging personally reviewed by me. Remainder the time spent in detailed review of previous records, lab data, imaging, and other medical provider documentation.
Anticipated Discharge: Today
Discharge Plan
-
Patient Disposition: Home (Routine Discharge)
Discharge Diagnosis/Procedures: Acute proctocolitis/diverticulitis.
Transaminitis.
biliary stricture in the upper third of the main bile duct s/p dilation
Type 2 diabetes
Diet: Low Fat and Diabetic, Carb Controlled
Activity: As tolerated
Others Tests: WILL NEED ABDOMINAL X RAY IN 2 WEEKS TO CHECK FOR MIGRATION OF PANCREATIC STENT-- CALL DR. BLANCHARD TO REVIEW WHEN COMPLETED. SEE ORDER SLIP
Activity Restrictions/Additional Instructions:
Wound Care Instructions
R lateral ankle ulcer-clean with Vashe wound cleanser or saline, adaptic, silicone border foam, change daily and as needed for drainage (add alginate after adaptic as needed for large amount of drainage).
Bilateral knee high Tubigrip as tolerated; remove at bedtime; reapply every morning.
Elevate heels off bed with pillow/s.
Follow up at wound care center call for an appointment.
Referrals:
PCP [Other] - in less than 1 week
Marco Antonio Blanchard MD [Active, Gastroenterology]
Referral Note: call office to arrange [address] Blanchard for stent removal.
Prescriptions:
New
dicyclomine 10 mg Capsule
20 mg PO QID PRN (Reason: abdominal pain) Qty: 120 0RF
magnesium oxide 400 mg (241.3 mg magnesium) Tablet
400 mg PO DAILY Qty: 0 0RF
(DME) blood-glucose meter [Accu-Chek Guide Glucose Meter] Misc
Qty: 1 0RF
Rx Instructions:
As Directed
(DME) Accu-Chek Guide test strips Strip
Qty: 200 0RF
Rx Instructions:
As Directed
(DME) lancets [Accu-Chek Softclix Lancets] Misc
Qty: 200 0RF
Rx Instructions:
As Directed
(DME) pen needle, diabetic [1st Tier Unifine Pentips Plus] 32 gauge x 5/32' needle
See Rx Instructions .Route Qty: 100 4RF
Rx Instructions:
As directed
insulin aspart U-100 100 unit/mL (3 mL) Insulin Pen
16 unit SC AC Qty: 15 4RF
pantoprazole 40 mg Tablet,Delayed Release (Dr/Ec)
40 mg PO BID 30 Days Qty: 60 2RF
insulin glargine [Lantus Solostar U-100 Insulin] 100 unit/mL (3 mL) insulin pen
35 unit SC DAILY Qty: 15 4RF
Continued
aspirin 81 mg Tablet,Delayed Release (Dr/Ec)
81 mg PO DAILY
loperamide 2 mg Capsule
2 mg PO Q4HPRN PRN (Reason: diarrhea) 30 Days Qty: 90 0RF
ropinirole 0.25 mg Tablet
0.5 mg PO HS 30 Days Qty: 60 0RF
mycophenolate sodium 180 mg Tablet,Delayed Release (Dr/Ec)
180 mg PO Q12H@799,1999 Qty: 60 1RF
gabapentin 100 mg capsule
300 mg PO BID
metoprolol succinate 25 mg Tablet Extended Release 24 Hr
12.5 mg PO DAILY Qty: 15 0RF
tacrolimus 1 mg Capsule
3 mg PO Q12H@799,1999 Qty: 180 1RF
Discontinued
insulin aspart U-100 100 unit/mL (3 mL) Insulin Pen
3 unit SC AC 30 Days Qty: 2.7 0RF
insulin glargine [Lantus Solostar U-100 Insulin] 100 unit/mL (3 mL) insulin pen
24 unit SC HS
Discharge Orders:
Discharge Patient (As Directed); Ordered 01/20/25
Ordered By: Charlene Beltran
Discharge Date and Time
Discharge Date/Time: 01/20/25 11:40
Print Language: SPANISH
== END 2025-01-20 11:40 | disposition home or self-care (01) | DRG 445 ==
LOC: 3 WEST ACU 22:06
PROVIDERS: Emergency Medicine; Hospitalist; Internal Medicine Gastroenterology; Nurse Practitioner; Radiology Diagnostic Radiology; ADMITTING PHYSICIAN Hospitalist; ATTENDING PHYSICIAN General Practice; CONSULT PHYSICIAN Internal Medicine Gastroenterology; EMERGENCY PHYSICIAN Emergency Medicine
PROC: 0F7F8DZ Dilation of Accessory Pancreatic Duct with Intraluminal Device, Via Natural or Artificial Opening Endoscopic (ICD-10-PCS; 2025-01-13)
PROC: 0FC98ZZ Extirpation of Matter from Common Bile Duct, Via Natural or Artificial Opening Endoscopic (ICD-10-PCS; 2025-01-13)
PROC: 0DJ08ZZ Inspection of Upper Intestinal Tract, Via Natural or Artificial Opening Endoscopic (ICD-10-PCS; 2025-01-13)
PROC: BF111ZZ Fluoroscopy of Biliary and Pancreatic Ducts using Low Osmolar Contrast (ICD-10-PCS; 2025-01-13)
PROC: BF101ZZ Fluoroscopy of Bile Ducts using Low Osmolar Contrast (ICD-10-PCS; 2025-01-15)
PROC: 0F778DZ Dilation of Common Hepatic Duct with Intraluminal Device, Via Natural or Artificial Opening Endoscopic (ICD-10-PCS; 2025-01-15)
PROC: 3E02340 Introduction of Influenza Vaccine into Muscle, Percutaneous Approach (ICD-10-PCS; 2025-01-20)
DX: K80.51 Calculus of bile duct without cholangitis or cholecystitis with obstruction (principal); K51.30 Ulcerative (chronic) rectosigmoiditis without complications; K57.32 Diverticulitis of large intestine without perforation or abscess without bleeding; Z94.4 Liver transplant status; Z59.01 Sheltered homelessness; L03.115 Cellulitis of right lower limb; N13.30 Unspecified hydronephrosis; T86.19 Other complication of kidney transplant; N17.8 Other acute kidney failure; E11.65 Type 2 diabetes mellitus with hyperglycemia; I25.10 Atherosclerotic heart disease of native coronary artery without angina pectoris; D63.8 Anemia in other chronic diseases classified elsewhere; M54.9 Dorsalgia, unspecified; G89.29 Other chronic pain; M25.551 Pain in right hip; R32 Unspecified urinary incontinence; B18.2 Chronic viral hepatitis C; K74.60 Unspecified cirrhosis of liver; N40.0 Benign prostatic hyperplasia without lower urinary tract symptoms; D69.59 Other secondary thrombocytopenia; G25.81 Restless legs syndrome; E87.5 Hyperkalemia; Y83.0 Surgical operation with transplant of whole organ as the cause of abnormal reaction of the patient, or of later complication, without mention of misadventure at the time of the procedure; Y92.239 Unspecified place in hospital as the place of occurrence of the external cause; Z96.89 Presence of other specified functional implants; Z95.828 Presence of other vascular implants and grafts; Z79.4 Long term (current) use of insulin; Z95.5 Presence of coronary angioplasty implant and graft; Z79.82 Long term (current) use of aspirin; Z79.621 Long term (current) use of calcineurin inhibitor; Z79.624 Long term (current) use of inhibitors of nucleotide synthesis; Z91.148 Patient's other noncompliance with medication regimen for other reason; Z87.891 Personal history of nicotine dependence; Z90.79 Acquired absence of other genital organ(s); Z86.718 Personal history of other venous thrombosis and embolism; Z90.49 Acquired absence of other specified parts of digestive tract; Z23 Encounter for immunization
CPT/HCPCS: 74177; 74183; 74330; 76000; 76700; 80053; 80197; 81003; 81015; 82010; 82248; 82784; 82805; 82947; 82962; 83036; 83516; 83690; 84484; 85025; 85027; 85610; 86038; 86376; 86381; 86644; 86645; 86705; 86706; 86709; 86803; 87045; 87046; 87324; 87340; 87427; 87449; 87497; 90656; 93005; 93975; 96361; 96372; 96374; 96375; 99285; A9575; C1726; C1769; C2617; C2625; G0008; J7030; Q9967

== ENCOUNTER 2025-01-28 12:39 | Inpatient (IN) | payer MEDICARE, OTHER, SELFPAY ==
[2025-01-27 15:48] VITALS: BP 170/96
[2025-01-27 16:34] LABS: Hematocrit 37.8 % (39.0-52.0); Hemoglobin 12.7 g/dL (13.0-18.0); Mean Corp Hgb Conc. 33.6 g/dL (33.0-37.0); Mean Corpuscular Volume 88.9 fL (80.0-94.0); Nucleated Red Blood Cells % 0 % (-); Platelet Count 139 10^3/uL (130-400); Red Cell Dist. Width 15.0 % (11.5-14.5)
[2025-01-27 16:48] LABS: ALT (SGPT) 26 U/L (0-50); AST (SGOT) 19 U/L (17-59); Albumin 4.1 g/dl (3.5-5.0); Alkaline Phosphatase 222 U/L (38-126); Blood Urea Nitrogen 34 mg/dl (9-20); Calcium 9.1 mg/dl (8.4-10.2); Carbon Dioxide 24 mmol/L (22-30); Chloride 99 mmol/L (98-107); Glucose 568 mg/dl (70-99); Lipase 71 U/L (23-300); Potassium 5.3 mmol/L (3.5-5.1); Sodium 125 mmol/L (135-145); Total Protein 6.9 g/dl (6.3-8.2); eGFR > 60.00
[2025-01-27 19:00] VITALS: BP 153/85
[2025-01-27 19:17] VITALS: BP 135/90
[2025-01-27 19:19] VITALS: BMI 24.4
--- NOTE | 2025-01-27 19:39 | ED.GENMED ---
History of Present Illness
General
Chief Complaint: Abdominal Pain
Source: patient and records
Exam Limitations: none
Time Seen by Provider: 01/27/25 19:12
Nursing documentation reviewed up to this point in time: agreed with
History of Present Illness
History of Present Illness:
65-year-old male with past medical history of insulin-dependent diabetes, CAD, liver transplant, renal transplant, DVT status post IVC filter who presents to the ER for evaluation of abdominal pain and headache. Patient was just admitted to this
hospital 01/09 until 01/20 and has been home for about a week. He was admitted for diverticulitis, cellulitis during his admission had uptrending LFTs found to have choledocholithiasis requiring ERCP x 2. He was also treated for hyperglycemia and
renal insufficiency. Patient says that for the past week he has had severe headache�she describes diffuse headache throbbing sensation. No clear triggering or relieving factors. Has had associated nausea but no vomiting. No neck pain or
stiffness. No fevers or chills. No trauma. He says that he has a history of aneurysm and is very concerned about it. He also reports that 3 days ago he started having return of abdominal pain he says across the lower abdomen. He says this has
been consistent and worsening over 3 days. He has nausea as above but no vomiting. He does still have some loose stools. He reports chronic urinary incontinence. No other acute complaints.
Past History
Past History
ED Past Medical History: IDDM, Renal failure and Other (BPH, hepatitis C)
ED Past Surgical History: Cardiac (For cardiac stents 2021), Urological and Other (Liver transplant, kidney transplant 2021)
Social History
Tobacco: Non-smoker
Alcohol: None
Drug: Former user
Personal: Single
Living: homeless
Review of Systems
Review of Systems
All Other Systems: ROS reviewed and negative except as documented in HPI and ROS
Constitutional: Denies fever or chills
Respiratory: Denies trouble breathing
Cardiac: Denies chest pain
ABD/GI: Reports abdominal pain, nausea and diarrhea; Denies vomiting
: Denies flank pain
Musculoskeletal: Denies neck pain or back pain
Neurological: Reports headache; Denies dizzy
Phy Exam
Physical Exam
Physical Exam:
General: Awake, alert, oriented x3; appears mildly uncomfortable
Head: Normocephalic, atraumatic
Eyes: Conjunctiva normal, sclera anicteric, EOMI, pupils equal round reactive to light bilaterally
Throat: Airway intact, handling secretions
Neck: Trachea midline, supple without meningismus
Lungs: Clear to auscultation bilaterally, no wheezing, rales, rhonchi
Heart: Regular rate and rhythm, no murmurs, gallops, or rubs
Abd: Soft, non distended, diffusely tender to palpation
Neuro: Cranial nerves grossly intact, speech fluid, motor and sensory intact
Skin: Warm and dry
Extremities: No edema in extremities, equal pulses in all extremities
Scores
Heart Failure Risk
Heart Failure Risk Score: Not Applicable
Heart Score for Chest Pain Patients
STEMI patient?: Not applicable
Withdrawal Assessment of Alcohol
Withdrawal Assessment Completed?: Not applicable
Course
Orders/Labs/Results
Orders:
Orders
01/27/25 15:58
Complete Blood Count/With Diff Urgent
Comprehensive Metabolic Panel Urgent
Lipase Urgent
01/27/25 19:36
CT Abd/pel Without Iv Or Oral Urgent
Comment:
Reason For Exam: abd pain, nausea
CT Head W/o Iv Contrast Urgent
Comment:
Reason For Exam: severe headache, reported h/o cerebral aneurysm
01/27/25 19:37
0.9% Sodium Chloride 1000 ml [Nss] 1,000 ml IV BOLUS
Insulin Aspart [NOVOLOG vial] 10 units SC NOW STA
01/27/25 19:39
HYDROmorphone [Dilaudid] 1 mg IV NOW STA
01/27/25 19:42
Urinalysis Reflex To Culture Urgent
01/27/25 19:58
Glucose Stat
01/27/25 20:50
0.9% Sodium Chloride 500 ml [Nss] 500 ml IV BOLUS
Abnormal Lab Results
01/27/25 01/27/25 01/27/25
15:58 19:43 19:58
RBC 4.25 L 10^6/uL
(4.70-6.10)
Hgb 12.7 L g/dL
(13.0-18.0)
Hct 37.8 L %
(39.0-52.0)
RDW 15.0 H %
(11.5-14.5)
Abs Immat Gran (auto) 0.1 H 10^3/uL
(0-0.05)
Absolute Neuts (auto) 6.8 H 10^3/uL
(1.4-6.5)
Immature Gran % 1.0 H %
(0-0.5)
Lymphocytes % 16.4 L %
(20.5-51.1)
Sodium 125 L mmol/L
(135-145)
Potassium 5.3 H mmol/L
(3.5-5.1)
BUN 34 H mg/dl
(9-20)
Glucose 568 H* mg/dl 436 H mg/dl
(70-99) (70-99)
Total Bilirubin 1.4 H mg/dl
(0.2-1.3)
Alkaline Phosphatase 222 H U/L
(38-126)
POC Glucose 439 H mg/dl
(70-99)
01/27/25 15:58
01/27/25 19:58
Vital Signs
Initial and Last Documented VS:
Initial Vital Signs
Temp Pulse Resp BP Pulse Ox
36.4 C 90 20 170/96 99
10/20/25 15:48 01/27/25 15:48 01/27/25 15:48 01/27/25 15:48 01/27/25 15:48
Last Documented Vital Signs
Temp Pulse Resp BP Pulse Ox
36.4 C 84 14 135/90 100
01/27/25 15:48 01/27/25 19:45 01/27/25 19:45 01/27/25 19:17 01/27/25 19:45
MDM/Problems Addressed
Differential Diagnosis Includes:
Abdominal pain: Choledocholithiasis, pancreatitis, diverticulitis, colitis/enteritis gastritis
Headache: Brain bleed, tension headache, dehydration
MDM/Problems Addressed:
65-year-old male presents to the ER for evaluation of headache and abdominal pain after recent admission as described above. Hypertensive but otherwise normal vitals. Physical exam is as noted. He had labs sent in triage including a CBC which
showed stable mild anemia. Chemistry was significant for severe hyperglycemia to 568 in the setting of known insulin-dependent diabetes; normal bicarb, pseudohyponatremia noted. Check urinalysis. His T. bili is markedly elevated but transaminases
are normal as is his lipase. Plan to check CT abdomen. Regarding his headache�suspect likely dehydration in the setting of severe hyperglycemia but he is very concerned given his history of aneurysm�can check CT head and abundance of caution.
Provide IV hydration, subcutaneous insulin. Pain control. Reassess after the above.
CT head shows chronic changes including chronic transcortical infarcts no acute abnormalities. I explained to patient that he will need long-term follow-up with a neurologist for this. His CT abdomen shows no acute abnormalities to account for
symptoms. Clinically however patient continues to complain of significant pain. He did previously present with abdominal pain and normal LFTs only to have significant increase over the next 24 to 48 hours. Will plan to admit to monitor labs, pain
control and better control his severely elevated glucose. Discussed case with hospitalist for admission.
Chronic conditions affecting care:
Cirrhosis status post transplant, renal failure status post transplant
*Radiology
Radiology exam reviewed: radiology read reviewed
*Pulse Oximetry
SaO2: 100
Oxygen Mode of Delivery: Room air
Patient hypoxic: no (100%)
*Critical Care Note
Total Time (30-74mins, 75-104mins- exclusive of procedures): Not Applicable
Data Reviewed
Review of Other/Old Records Reveals: Labs, Records and Discharge Summary
Source: patient and records
Patient Management
Social determinants of health affecting care: Living situation and Poor outpatient follow-up
Discussion with other providers: Hospitalist (Discussed with hospitalist)
Escalation/DeEscalation of care consider admission/obs:
Admission indicated
ED Attending Note
-
Portions of this chart may have been created with voice recognition software.� Occasional wrong word or��sound alike� substitutions may have occurred due to the inherent limitations of voice recognition software.
Discharge Plan
Departure
Prescriptions:
No Action
aspirin 81 mg Tablet,Delayed Release (Dr/Ec)
81 mg PO DAILY
loperamide 2 mg Capsule
2 mg PO Q4HPRN PRN (Reason: diarrhea) 30 Days Qty: 90 0RF
ropinirole 0.25 mg Tablet
0.5 mg PO HS 30 Days Qty: 60 0RF
mycophenolate sodium 180 mg Tablet,Delayed Release (Dr/Ec)
180 mg PO Q12H@0800,2000 Qty: 60 1RF
gabapentin 100 mg capsule
300 mg PO BID
metoprolol succinate 25 mg Tablet Extended Release 24 Hr
12.5 mg PO DAILY Qty: 15 0RF
dicyclomine 10 mg Capsule
20 mg PO QID PRN (Reason: abdominal pain) Qty: 120 0RF
magnesium oxide 400 mg (241.3 mg magnesium) Tablet
400 mg PO DAILY Qty: 0 0RF
(DME) blood-glucose meter [Accu-Chek Guide Glucose Meter] Misc
Qty: 1 0RF
Rx Instructions:
As Directed
(DME) Accu-Chek Guide test strips Strip
Qty: 200 0RF
Rx Instructions:
As Directed
(DME) lancets [Accu-Chek Softclix Lancets] Misc
Qty: 200 0RF
Rx Instructions:
As Directed
(DME) pen needle, diabetic [1st Tier Unifine Pentips Plus] 32 gauge x 5/32' needle
See Rx Instructions .Route Qty: 100 4RF
Rx Instructions:
As directed
tacrolimus 1 mg Capsule
3 mg PO Q12H@0800,2000 Qty: 180 1RF
insulin aspart U-100 100 unit/mL (3 mL) Insulin Pen
16 unit SC AC Qty: 15 4RF
pantoprazole 40 mg Tablet,Delayed Release (Dr/Ec)
40 mg PO BID 30 Days Qty: 60 2RF
insulin glargine [Lantus Solostar U-100 Insulin] 100 unit/mL (3 mL) insulin pen
35 unit SC DAILY Qty: 15 4RF
Referrals:
Geneva Lantigua DO [Family Provider, Family Practice]
Interventions
Interventions:
*Risk Screen - Suicide Last Done: 01/27/25 15:48
*General Assessment Last Done: 01/27/25 15:48
*Neglect/Abuse Screening Last Done: 01/27/25 15:48
*ED- Fall Risk Assessment Last Done: 01/27/25 19:19
*ED COVID-19 Vaccine History Last Done: 01/27/25 19:19
*ED Influenza Vaccine History Last Done: 01/27/25 19:19
GW-Tyhfeu-Wjzlugdinu Assessment Last Done: 01/27/25 19:19
Discharge Date and Time
Print Language: UZBEK
[2025-01-27 19:44] LABS: Glucose - Point of Care 439 mg/dl (70-99)
[2025-01-27] MEDS: NSS 1000 IV (19:48)
[2025-01-27] MEDS: DILAUDID 1 MG IV (19:48)
[2025-01-27 20:10] VITALS: BP 179/95
[2025-01-27 20:20] LABS: Glucose 436 mg/dl (70-99)
[2025-01-27] MEDS: NOVOLOG vial 10 UNITS SC (20:26)
[2025-01-27 21:00] VITALS: BP 147/82
--- NOTE | 2025-01-27 21:28 | HPS.HSE ---
Addendum entered and electronically signed by Hamilton Weinstein MD 01/27/25 22:47:
This is an addendum to H&P written by Lyn Fields 01/27/2025. �Patient seen and examined independently with CLIENT SERVICE PROFESSIONAL.
65-year-old male past medical history of liver cirrhosis secondary to chronic hepatitis C status post liver transplant/kidney transplant, anemia of chronic disease, diabetes, chronic right hip pain, chronic back pain, CAD status post stents,
bilateral lower extremity DVT with IVC filter, BPH status post TURP, prior history of C. difficile, prior drug use, former smoker, presenting with lower abdominal pain that got particularly bad within the past few days. �He states that he has had
this pain during the recent hospitalization which did not improve with antibiotics and ERCP x 2. �He also does have urinary burning and frequent urination. �He had an episode of confusion while in the store.
He is having 1 episode of diarrhea in the morning every day occasionally with mucus.
His nephew has IBD.
Patient was recently admitted from 01/09 to 01/20 for abdominal pain and diarrhea. �He was found to have acute proctocolitis/diverticulitis treated with antibiotics. �He later developed transaminitis and was taken for ERCP x 2. �First ERCP was
notable for biliary sphincterotomy and pancreatic stent placed.. �He had a second ERCP due to transaminitis with sphincterotomy and placement of common hepatic duct stent.
Vital signs show blood pressure 170/96.
Labs show blood sugar 568 but he did not take his insulin today which he did not eat today. �Sodium 125. �Potassium 5.3.
CT abdomen pelvis shows stent in the bile duct extending into the duodenum, only acute findings are moderate distention of the urinary bladder, moderate fecal material throughout the colon. �CT head shows no acute abnormality.
Unclear etiology of abdominal pain. �Labs not consistent with recurrent biliary obstruction or acute pancreatitis from recent ERCP. �Urinary tract infection would explain much of the symptoms but urinalysis still pending. �Possible that patient has
chronic underlying GI pathology such as IBD to explain chronic abdominal pain and daily diarrhea in the morning. Dilaudid for pain.
Hyperglycemia not consistent with DKA as no anion gap and could be secondary to UTI if present. �Monitor LFTs, GI consulted. �1 L IV fluids given. �Urinalysis pending. �Headache likely secondary to stress and decreased p.o. intake today.
Continue Lantus but reduce from 35 to 18 units as patient not eating currently.
Original Note:
Family Physician
-
Family Physician: Geneva Lantigua
Chief Complaint
-
lower abdominal pain
History of Present Illness
65-year-old male with past medical history of insulin-dependent diabetes, CAD, liver transplant, renal transplant, DVT status post IVC filter who presents to the ER for evaluation of abdominal pain and headache. patient stated lower abdominal pain
for 4-5 days, aggravated by sitting up. he did not taking anything for his pain. he also complained of MARTI. he also got confused once. denied fever, chills, chest pain, sob. denied dizzy or syncope. denied abdominal pain,n,v,d. patient was
incontinent of urine and stated urinary frequency.
Patient was just admitted to this hospital 01/09 until 01/20 and has been home for about a week. He was admitted for diverticulitis, cellulitis during his admission had uptrending LFTs found to have choledocholithiasis requiring ERCP x 2. He was
also treated for hyperglycemia and renal insufficiency.
Head CT with no acute findings, CT abdomen pelvis with no acute findings.
Medical History
Past Medical History
Past Medical History: Reports Other
Additional Past Medical History:
depression, type 2 DM , cirrhois of liver
Past Surgical History: Reports Other
Additional Past Surgical History:
liver and kidney transplant
Social History
Tobacco: Former Smoker
Alcohol: None
Drug: None
Family History
Family History: Not pertinent
Allergies / Home Medications
Allergies reflects when Allergies were last updated in [facility].
Home Medications with original date entered in [facility]
Allergy/Medication List:
Allergies
Allergy/AdvReac Type Severity Reaction Status Date / Time
No Known Allergies Allergy Verified 01/27/25 15:51
Home Medications
aspirin 81 mg tablet,delayed release 81 mg PO DAILY Blood Clot Prevention/Tx 08/15/23
loperamide 2 mg capsule 2 mg PO Q4HPRN PRN diarrhea 1 month #90 caps 06/30/24
ropinirole 0.25 mg tablet 0.5 mg (2 x 0.25 mg) PO HS restless legs 1 month #60 tabs 06/30/24
mycophenolate sodium 180 mg tablet,delayed release 180 mg PO Q12H@08 Kidney transplant #60 tabs 07/08/24
gabapentin 100 mg capsule 300 mg PO BID Pain 08/06/24
metoprolol succinate 25 mg tablet,extended release 24 hr 12.5 mg (1/2 x 25 mg) PO DAILY #15 tabs 08/08/24
blood sugar diagnostic (Accu-Chek Guide test strips) #200 ea 01/13/25
blood-glucose meter (Accu-Chek Guide Glucose Meter) #1 ea 01/13/25
dicyclomine 10 mg capsule 20 mg (2 x 10 mg) PO QID PRN abdominal pain #120 caps 01/13/25
lancets (Accu-Chek Softclix Lancets) #200 ea 01/13/25
magnesium oxide 400 mg (241.3 mg magnesium) tablet 400 mg PO DAILY #0 tabs 01/13/25
pen needle, diabetic 32 gauge x 32' (1st Tier Unifine Pentips Plus) #100 ea 01/13/25
tacrolimus 1 mg capsule, immediate-release 3 mg (3 x 1 mg) PO Q12H@ kidney transplant #180 caps 01/13/25
insulin aspart U-100 100 unit/mL (3 mL) subcutaneous pen 16 unit (0.16 mL) SC AC #15 mL 01/20/25
insulin glargine 100 unit/mL (3 mL) subcutaneous pen (Lantus Solostar U-100 Insulin) 35 unit (0.35 mL) SC DAILY #15 mL 01/20/25
pantoprazole 40 mg tablet,delayed release 40 mg PO BID 30 days #60 tabs 01/20/25
Review of Systems
-
Constitutional: Reports No Symptoms
EENT: Reports No Symptoms
Respiratory: Reports No Symptoms
Cardiac: Reports No Symptoms
Abdomen/GI: Reports Abdominal Pain and Nausea
: Reports No Symptoms
Musculoskeletal: Reports No Symptoms
Skin: Reports No Symptoms
Neurological: Reports Headache
Endocrine: Reports No Symptoms
Hematologic/Lymphatic: Reports No Symptoms
Psych: Reports No Symptoms
Physical Exam
Vital Signs
Vital Signs
Temp Pulse Resp BP Pulse Ox
97.6 F 84 14 135/90 100
01/27/25 15:48 01/27/25 19:45 01/27/25 19:45 01/27/25 19:17 01/27/25 19:45
Physical Exam
General: Well Developed, Well Nourished and No Apparent Distress
HEENT: NormoCephalic, Moist mucous membranes and Atraumatic
Respiratory: Clear
Cardiac: S1/S2 and Regular Rhythm; No Murmur or Rub
GI: Soft, Non Distended, Normal Bowel Sounds and Tender; No Organomegaly
Rectal: Deferred by Provider
Musculoskeletal: No Clubbing, No Cyanosis and No Edema
Skin: No Rash
Neuro: AO x 3 and Nonfocal/grossly intact
Psych: Calm
Laboratory Results
-
01/27/25 15:58
01/27/25 19:58
Laboratory Results
Total Bilirubin 1.4 mg/dl (0.2-1.3) H 01/27/25 15:58
AST 19 U/L (17-59) 01/27/25 15:58
ALT 26 U/L (0-50) 01/27/25 15:58
Alkaline Phosphatase 222 U/L (38-126) H 01/27/25 15:58
Lipase 71 U/L (23-300) 01/27/25 15:58
Data Reviewed
-
CT Scan: Report Reviewed by me
Lab Data: Labs Reviewed by me
Impression/Plan
-
#abdominal pain unclear etiology
#recent diverticulitis
#recent ERCP with Removal of sludge from the biliary tree. Plastic stent placed in the common hepatic duct.
-T bili 1.4
-GI consult.
-obtain bladder scan
-CT abdomen pelvis with . RIGHT UPPER QUADRANT LIVER TRANSPLANT in place.
2. Plastic stent in the bile duct extending into the duodenum.
3. Moderate splenomegaly secondary to chronic portal hypertension.
4. Severe chronic bilateral atrophy of the [place] kidneys.
5. LEFT LOWER QUADRANT RENAL TRANSPLANT in place with moderate to severe chronic distention of the left intrarenal collecting system.
6. Moderate distention of the urinary bladder.
7. Moderate amount of fecal material throughout the colon (possibly CONSTIPATION).
8. Severe calcific atherosclerotic plaque in the abdominal aorta.
9. IVC filter in place.
10. Mild colonic diverticulosis.
#urinary incontinence, frequency concern for UTI
-obtain UA, bladder scan
-defer abx at this time
#headache likely due to the abdominal pain decreased oral intake
-CT head with no acute findings
-Tylenol prn for MARTI.
#type 2 Dm with hyperglycemia
-blood sugar in 400's
-sliding scale
-CHO diet, Lantus 18 units
-insulin 10units with meals
#anemia of chronic disease
-hgb stable at 12.7, no active bleeding
-ctm
#hyponatremia
-na 125,corrected sodium is 130
-fluids in ER
-BMP in am
#Cirrhosis secondary to chronic hepatitis C status post liver/kidney transplant
- Continue tacrolimus, mycophenolate
#Chronic right hip pain
Chronic back pain
- Continue gabapentin
#CAD status post stents
- Continue metoprolol
- Continue aspirin
#Bilateral lower extremity DVT with IVC filter
#BPH status post TURP
#Former smoker
#Restless leg syndrome
-continue ropinirole
CODE STATUS: Full code
DVT prophylaxis: Heparin
[2025-01-27] MEDS: DILAUDID 0.5 MG IV ×2 (21:36→23:46)
[2025-01-27] MEDS: NSS 500 IV (21:44)
[2025-01-27 22:00] VITALS: BP 164/95
[2025-01-27 22:27] LABS: Glucose - Point of Care 242 mg/dl (70-99)
[2025-01-27] MEDS: LANTUS 0.18 UNITS SC (22:27)
[2025-01-27 22:32] LABS: Urine Character Clear (Clear)
[2025-01-27 23:13] LABS: Urine Squamous Cell 0-2 /LPF (Few)
[2025-01-27 23:14] LABS: Urine Red Blood Cell 26-30 /HPF (0-2)
[2025-01-27] MEDS: REQUIP 0.5 MG PO (23:43)
[2025-01-28 02:56] VITALS: BMI 25.6
[2025-01-28 03:03] VITALS: BP 158/86
[2025-01-28] MEDS: DILAUDID 0.5 MG IV ×5 (03:46→20:22)
--- NOTE | 2025-01-28 06:36 | PTCARENOTE ---
Received pt from ER,pt drowsy,but oriented,ambulated into room with one person assist.Pt voided in BR upon arrival,VS recorded all stable,afebrile.Pt medicated with Dilaudid for adb pain,+ relief and sleep following after assessment .
--- NOTE | 2025-01-28 07:54 | W.PN.HOSP.TC ---
Today's Communication/Plan
-
Repeat BMP and treat hyper-K
Upgrade to inpatient.
Assessment / Plan
Assessment / Plan
Impression:
65-year-old male past medical history of liver cirrhosis secondary to chronic hepatitis C status post liver transplant/kidney transplant, anemia of chronic disease, diabetes, chronic right hip pain, chronic back pain, CAD status post stents,
bilateral lower extremity DVT with IVC filter, BPH status post TURP, prior history of C. difficile, prior drug use, former smoker, presenting with lower abdominal pain that got particularly bad within the past few days. �He states that he has had
this pain during the recent hospitalization which did not improve with antibiotics and ERCP x 2. �He also does have urinary burning and frequent urination. �He had an episode of confusion while in the store.
He is having 1 episode of diarrhea in the morning every day occasionally with mucus.
Patient was recently admitted from 01/09 to 01/20 for abdominal pain and diarrhea. �He was found to have acute proctocolitis/diverticulitis treated with antibiotics. �He later developed transaminitis and was taken for ERCP x 2. �First ERCP was
notable for biliary sphincterotomy and pancreatic stent placed.. �He had a second ERCP due to transaminitis with sphincterotomy and placement of common hepatic duct stent.
Vital signs show blood pressure 170/96. Labs show blood sugar 568 but he did not take his insulin today which he did not eat today. �Sodium 125. �Potassium 5.3.
CT abdomen pelvis shows stent in the bile duct extending into the duodenum, only acute findings are moderate distention of the urinary bladder, moderate fecal material throughout the colon. �CT head shows no acute abnormality. Unclear etiology of
abdominal pain. �Labs not consistent with recurrent biliary obstruction or acute pancreatitis from recent ERCP. �patient recieved Dilaudid for pain. Hyperglycemia not consistent with DKA as no anion gap .GI consulted. �1 L IV fluids given.
�Headache likely secondary to stress and decreased p.o. intake today. Continue Lantus but reduce from 35 to 18 units as patient not eating currently.
Patient noted to have hyperkalemia, repeat lab
Assessment/plan:
Abdominal pain unclear etiology
Recent diverticulitis
Recent ERCP with Removal of sludge from the biliary tree. Plastic stent placed in the common hepatic duct.
-T bili 1.4
-GI consult.
-obtain bladder scan
-CT abdomen pelvis with . RIGHT UPPER QUADRANT LIVER TRANSPLANT in place.
2. Plastic stent in the bile duct extending into the duodenum.
3. Moderate splenomegaly secondary to chronic portal hypertension.
4. Severe chronic bilateral atrophy of the [place] kidneys.
5. LEFT LOWER QUADRANT RENAL TRANSPLANT in place with moderate to severe chronic distention of the left intrarenal collecting system.
6. Moderate distention of the urinary bladder.
7. Moderate amount of fecal material throughout the colon (possibly CONSTIPATION).
8. Severe calcific atherosclerotic plaque in the abdominal aorta.
9. IVC filter in place.
10. Mild colonic diverticulosis.
Seen by GI recommended bowel after correcting hyperkalemia.
Urinary incontinence, frequency concern for UTI
- Urinalysis negative
Hyperkalemia.
Repeat BMP pending
Headache likely due to the abdominal pain decreased oral intake
-CT head with no acute findings
-Tylenol prn for MARTI.
Type 2 Dm with hyperglycemia
-blood sugar in 400's
-sliding scale
-CHO diet, Lantus 18 units
-insulin 10units with meals
01/28
Dropped blood sugar today, will adjust insulin regimen
Diabetic management consult
Anemia of chronic disease
-hgb stable at 12.7, no active bleeding
-ctm
#hyponatremia
Resolved
#Cirrhosis secondary to chronic hepatitis C status post liver/kidney transplant
- Continue tacrolimus, mycophenolate
#Chronic right hip pain
Chronic back pain
- Continue gabapentin
#CAD status post stents
- Continue metoprolol
- Continue aspirin
#Bilateral lower extremity DVT with IVC filter
#BPH status post TURP
#Former smoker
#Restless leg syndrome
-continue ropinirole
CODE STATUS: Full code
DVT prophylaxis: Heparin
Diet: DM diet
Disposition: Repeat BMP and treat hyper-K
Upgrade to inpatient.
Total time spent on today's encounter was 55 minutes which included time spent in counseling the patient/family regarding diagnosis and treatment plan as listed above, goals of care, and symptom management. Case was discussed with nursing staff,
specialists, and care coordinators/case management. All labs and imaging personally reviewed by me. Remainder the time spent in detailed review of previous records, lab data, imaging, and other medical provider documentation.
Anticipated Discharge: 24 - 48 hours
Subjective/Interval History
-
Date of Service: January 28, 2025
Patient still complaining of abdominal pain, no chest pain or shortness of breath, noted to have hyperkalemia at 6.2
Objective Data
-
Labs:
Laboratory Results
01/27/25 01/28/25
19:58 06:00
WBC Pending
Hgb Pending
Hct Pending
Plt Count Pending
Sodium Pending
Potassium Pending
Chloride Pending
Carbon Dioxide Pending
BUN Pending
Creatinine Pending
Glucose 436 H Pending
Calcium Pending
Total Bilirubin Pending
AST Pending
ALT Pending
Alkaline Phosphatase Pending
Vital Signs:
Vital Signs
Temp Pulse Resp BP Pulse Ox
98.1 F 84 14 158/86 97
01/28/25 03:03 01/28/25 03:03 01/28/25 03:03 01/28/25 03:03 01/28/25 04:57
Physical Exam
-
General: Well Developed, Well Nourished, No Apparent Distress and Comfortable
HEENT: Normocephalic, Atraumatic, Moist Mucous Membranes, No Ptosis, PERRLA and Nose Appears Normal
Respiratory: Clear to Auscultation and Non Labored Respirations
Cardiac: Regular Rhythm and S1/S2
Breast: Deferred by me
GI: Soft, Nondistended, Normal Bowel Sounds and Tender
Genito-urinary: No Costovertebral Tender
Musculoskeletal: No Clubbing, No Cyanosis and No Edema
Skin: Warm
Neuro: Awake, Alert, Oriented, AO x 3 and No Motor Deficits
Psych: Calm
Data Reviewed
-
Diagnostic Radiology: Image personally visualized and interpreted and Report Reviewed by me
CT Scan: Image personally visualized and interpreted and Report Reviewed by me
Ultrasound: Image personally visualized and interpreted and Report Reviewed by me
MRI: Image personally visualized and interpreted and Report Reviewed by me
Medical Tests (Nuc Med, Echo etc): Image personally visualized and interpreted and Report Reviewed by me
Labs: Labs Reviewed by me
Old Records: Reviewed
[2025-01-28] MEDS: PROTONIX 40 MG PO ×2 (07:58→20:20)
[2025-01-28] MEDS: HEPARIN 5000 UNITS SC (07:58)
[2025-01-28] MEDS: ASPIR LOW (ENTERIC COATED) 81 MG PO (07:58)
[2025-01-28] MEDS: LANTUS 0.18 UNITS SC (08:04)
[2025-01-28 08:05] VITALS: BP 145/81
[2025-01-28] MEDS: PROGRAF 3 MG PO ×2 (08:05→20:21)
[2025-01-28] MEDS: MYFORTIC DELAYED REL. PO (08:06)
[2025-01-28 08:15] LABS: Glucose - Point of Care 212 mg/dl (70-99)
[2025-01-28] MEDS: MAGNESIUM OXIDE 400 MG PO (08:40)
[2025-01-28] MEDS: NOVOLOG FLEXPEN 10 UNITS SC ×2 (08:40→16:56)
[2025-01-28] MEDS: NEURONTIN 300 MG PO ×2 (08:40→20:21)
[2025-01-28] MEDS: TOPROL XL 12.5 MG PO (08:40)
[2025-01-28] MEDS: NOVOLOG FLEXPEN-LOW RESISTANCE 3 UNITS SC (08:41)
[2025-01-28 09:37] LABS: Hematocrit 33.8 % (39.0-52.0); Hemoglobin 11.9 g/dL (13.0-18.0); Mean Corp Hgb Conc. 35.2 g/dL (33.0-37.0); Mean Corpuscular Volume 84.9 fL (80.0-94.0); Platelet Count 124 10^3/uL (130-400); Red Cell Dist. Width 15.0 % (11.5-14.5)
--- NOTE | 2025-01-28 09:59 | CON.GI ---
Addendum entered and electronically signed by ALTON Rodriguez 01/28/25 14:07:
K improved to 4.8 this afternoon will give dose miralax now -- NPO in AM for possible stent removal
Addendum entered and electronically signed by Yanira Jaquez DO 01/28/25 12:28:
The patient was seen and examined by me independently in collaboration with the nurse practitioner.
Past medical history/social history/medications/allergies/family history reviewed.
Lab data and imaging data reviewed.
Briefly, Buster is a 64 y.o. male w/ pmhx HCV cirrhosis s/p SLK at [facility] in 2021 on cellcept and tacrolimus, posttransplant course c/b c.diff, hx of EV, DM2, CAD, DVT s/p IVC filter, BPH with TURP, hx ORIF, hx of drug induced diarrhea
(cellcept?),
He had a recent admission to from 01/09-01/20 with abdominal pain and diarrhea, concern for proctocolitis, mild diverticulitis at the junction of the distal DC and proximal sigmoid colon, mild to moderate colonic fecal burden. Hospital course c/b
elevated LFTs found to have choledocholithiasis s/p EUS and ERCP x 2 during his admission with CBD stent. He is due for stent removal in 2-4 weeks. He is readmission to abdominal pain present across his lower abdomen, below the umbilicus. CT shows
evidence of large stool burden c/w constipation. LFTs slightly elevated on admission have already normalized.
Suspect current symptoms are 2/2 stool burden with gas/air trapping, also has some bladder distension.
Hyperkalemia on admission with K 5.3 --> 6.5, need to address
After correction of metabolic derangements, proceed with giving laxative
Stent exchange in 2-4 weeks, if able to arrange while here, will proceed, if not, will need to be performed on outpatient basis
T with concern for proctocolitis, mild diverticulitis at the junction of the distal descending colon proximal sigmoid colon, mild to moderate colonic fecal burden,central lucency of the prostate gland suggesting a TURP defect versus central gland
prostatic cyst. Pt was given antibiotics then had rise in LFT's with further follow up imaging concern for choledocholithiasis. He completed EUS and ERCP x 2 during admission and had repeat CT with improvement. He is due for stent removal 2-4
weeks but not scheduled. He now returns with continued lower abdominal pain. CT on admission with changes of transplant, stent into duodenum, SM, renal atrophy, bladder distention, moderate stool in colon, filter in place and diverticulosis.
64yo with hx hep C cirrhosis with prior liver/kidney transplant at [facility] in 2021 on mycophenolate (reduced his dose to one daily, although per patient was told to stop in June by [facility] for possible mycophenolate diarrhea) and tacrolimus,
c-diff post transplant, hx Esophageal varices, prior stenting ? esophageal vs biliary, CAD with prior stenting, IDDM, DVT with filter, BPH with prior TURP, ORIF hip, prior foot infection with several admission in past year. He was admitted several
times past spring with concern for diarrhea with complete workup for diarrhea in past including stool fat neg, fecal calpro normal, and elastase 266 which ruled out pancreatic insufficiency. Last colonoscopy 06/2024- fair prep, hemorrhoids, stool in
entire colon, diverticulosis, bx neg CVM and microscopic colitis. Eventually patient went to [facility] where it was recommended that he stop his mycophenolate for possible mycophenolate induced diarrhea but pt decided to decreased dose with
improvement. Pt also with recent admission 01/09- 01/20 with abdominal pain and diarrhea. CT with concern for proctocolitis, mild diverticulitis at the junction of the distal descending colon proximal sigmoid colon, mild to moderate colonic fecal
burden,central lucency of the prostate gland suggesting a TURP defect versus central gland prostatic cyst. Pt was given antibiotics then had rise in LFT's with further follow up imaging concern for choledocholithiasis. He completed EUS and ERCP x
2 during admission and had repeat CT with improvement. He is due for stent removal 2-4 weeks but not scheduled. He now returns with continued lower abdominal pain. CT on admission with changes of transplant, stent into duodenum, SM, renal
atrophy, bladder distention, moderate stool in colon, filter in place and diverticulosis.
In review with patient he admits to continued lower abdominal pain. Pain is constant better with pain meds. No improvement or change with eating, BM's, urinating or movement. He admits to soft stool daily. He does have some nausea but denies
issues
with odynophagia, dysphagia, GERD, diarrhea, blood or black in stools. LFT's improved form prior admission with mild bili and alk phos elevation 1.4, AST 19, ALT 26, alk phos 222. Labs otherwise with glucose 568 Na 125, K 5.3, with stable hbg
on admission.
Addendum entered and electronically signed by ALTON Rodriguez 01/28/25 11:25:
K 6.2 on repeat labs-- will hold Colyte and bowel regiment til electrolytes corrected
Original Note:
Consultation
-
Date/Time Consultation Requested: 01/27/25 2320
Date/Time Consultation Performed: 01/28/25 0950
Requesting Provider: ALTON Knox
Performing Provider: ALTON Moss, Elo Jaquez DO
Reason for Consultation: abdominal pain
Medical History
Chief Complaint / HPI
Chief Complaint: diarrhea
History of Present Illness:
64yo with hx hep C cirrhosis with prior liver/kidney transplant at [facility] in 2021 on mycophenolate (reduced his dose to one daily, although per patient was told to stop in June by [facility] for possible mycophenolate diarrhea) and tacrolimus,
c-diff post transplant, hx Esophageal varices, prior stenting ? esophageal vs biliary, CAD with prior stenting, IDDM, DVT with filter, BPH with prior TURP, ORIF hip, prior foot infection with several admission in past year. He was admitted several
times past spring with concern for diarrhea with complete workup for diarrhea in past including stool fat neg, fecal calpro normal, and elastase 266 which ruled out pancreatic insufficiency. Last colonoscopy 06/2024- fair prep, hemorrhoids, stool in
entire colon, diverticulosis, bx neg CVM and microscopic colitis. Eventually patient went to [facility] where it was recommended that he stop his mycophenolate for possible mycophenolate induced diarrhea but pt decided to decreased dose with
improvement. Pt also with recent admission 01/09- 01/20 with abdominal pain and diarrhea. CT with concern for proctocolitis, mild diverticulitis at the junction of the distal descending colon proximal sigmoid colon, mild to moderate colonic fecal
burden,central lucency of the prostate gland suggesting a TURP defect versus central gland prostatic cyst. Pt was given antibiotics then had rise in LFT's with further follow up imaging concern for choledocholithiasis. He completed EUS and ERCP x
2 during admission and had repeat CT with improvement. He is due for stent removal 2-4 weeks but not scheduled. He now returns with continued lower abdominal pain. CT on admission with changes of transplant, stent into duodenum, SM, renal
atrophy, bladder distention, moderate stool in colon, filter in place and diverticulosis.
In review with patient he admits to continued lower abdominal pain. Pain is constant better with pain meds. No improvement or change with eating, BM's, urinating or movement. He admits to soft stool daily. He does have some nausea but denies
issues
with odynophagia, dysphagia, GERD, diarrhea, blood or black in stools. LFT's improved form prior admission with mild bili and alk phos elevation 1.4, AST 19, ALT 26, alk phos 222. Labs otherwise with glucose 568 Na 125, K 5.3, with stable hbg
on admission.
.
Past Medical History
Past Medical History: CAD, IDDM and Other (hep C with cirrhosis and prior liver/kidney transplant - 2021 [facility], DVT with filter, BPH, prior foot infection, c-diff )
Past Surgical History: Cardiac (stents ), Orthopedic (hip ORIF), Urological (TURP) and Other (liver/kidney transplant )
Social History
Tobacco: Non-Smoker
Alcohol: None
Drug: Marijuana (in past )
Living: Alone
Employment: Disabled
Family History
Family History: Other (no family hx liver issues )
Allergies / Home Medications
Allergy/AdvReac Type Severity Reaction Status Date / Time
No Known Allergies Allergy Verified 01/27/25 15:51
�Medication �Instructions �Recorded
aspirin 81 mg tablet,delayed 81 mg PO DAILY Blood Clot 08/15/23
release Prevention/Tx
loperamide 2 mg capsule 2 mg PO Q4HPRN PRN diarrhea 1 06/30/24
month #90 caps
ropinirole 0.25 mg tablet 0.5 mg (2 x 0.25 mg) PO HS 06/30/24
restless legs 1 month #60 tabs
mycophenolate sodium 180 mg 180 mg PO Q12H@0800,1999 Kidney 07/08/24
tablet,delayed release transplant #60 tabs
gabapentin 100 mg capsule 300 mg PO BID Pain 08/06/24
metoprolol succinate 25 mg 12.5 mg (1/2 x 25 mg) PO DAILY #15 08/08/24
tablet,extended release 24 hr tabs
blood sugar diagnostic (Accu-Chek #200 ea 01/13/25
Guide test strips)
blood-glucose meter (Accu-Chek #1 ea 01/13/25
Guide Glucose Meter)
dicyclomine 10 mg capsule 20 mg (2 x 10 mg) PO QID PRN 01/13/25
abdominal pain #120 caps
lancets (Accu-Chek Softclix #200 ea 01/13/25
Lancets)
magnesium oxide 400 mg (241.3 mg 400 mg PO DAILY #0 tabs 01/13/25
magnesium) tablet
pen needle, diabetic 32 gauge x #100 ea 01/13/25
' (1st Tier Unifine Pentips
Plus)
tacrolimus 1 mg capsule, 3 mg (3 x 1 mg) PO Q12H@0800,199901/13/25
immediate-release kidney transplant #180 caps
insulin aspart U-100 100 unit/mL 16 unit (0.16 mL) SC AC #15 mL 01/20/25
(3 mL) subcutaneous pen
insulin glargine 100 unit/mL (3 35 unit (0.35 mL) SC DAILY #15 mL 01/20/25
mL) subcutaneous pen (Lantus
Solostar U-100 Insulin)
pantoprazole 40 mg tablet,delayed 40 mg PO BID 30 days #60 tabs 01/20/25
release
dicyclomine 10 mg capsule 20 mg PO QID PRN pain 01/27/25
Review of Systems
-
History Source: Patient
Constitutional: Reports Weight Gain (since transplant )
EENT: Reports No Symptoms
Respiratory: Reports No Symptoms
Cardiac: Reports No Symptoms
Abdomen/GI: Reports Abdominal Pain, Nausea and Diarrhea (improved from prior eval )
: Reports No Symptoms
Musculoskeletal: Reports No Symptoms
Skin: Reports No Symptoms
Neurological: Reports Weakness
Endocrine: Reports No Symptoms
Hematologic/Lymphatic: Reports No Symptoms
Vital Signs
Temp Pulse Resp BP Pulse Ox
98.3 F 83 18 145/81 99
01/28/25 08:05 01/28/25 08:40 01/28/25 08:05 01/28/25 08:40 01/28/25 08:05
Physical Exam
Exam
General: Well Developed, Well Nourished and No Apparent Distress
HEENT: Normocephalic and Anicteric
Respiratory: Clear
Cardiac: Regular Rhythm
GI: Soft, Non Distended and Tender (lower abdomen )
Genito-urinary: Other (bladder scan 238)
Skin: Warm and Dry
Neuro: Awake, Alert and AO x 3
Psych: Calm
Results
WBC 8.0 10^3/uL (4.8-10.8) 01/28/25 09:17
Hgb 11.9 g/dL (13.0-18.0) L 01/28/25 09:17
Hct 33.8 % (39.0-52.0) L 01/28/25 09:17
MCV 84.9 fL (80.0-94.0) 01/28/25 09:17
Plt Count 124 10^3/uL (130-400) L 01/28/25 09:17
Absolute Neuts (auto) 6.8 10^3/uL (1.4-6.5) H 01/27/25 15:58
Sodium 125 mmol/L (135-145) L 01/27/25 15:58
Potassium 5.3 mmol/L (3.5-5.1) H 01/27/25 15:58
Chloride 99 mmol/L (98-107) 01/27/25 15:58
Carbon Dioxide 24 mmol/L (22-30) 01/27/25 15:58
BUN 34 mg/dl (9-20) H 01/27/25 15:58
Creatinine 1.2 mg/dL (0.7-1.3) 01/27/25 15:58
Calcium 9.1 mg/dl (8.4-10.2) 01/27/25 15:58
Total Bilirubin 1.4 mg/dl (0.2-1.3) H 01/27/25 15:58
AST 19 U/L (17-59) 01/27/25 15:58
ALT 26 U/L (0-50) 01/27/25 15:58
Alkaline Phosphatase 222 U/L (38-126) H 01/27/25 15:58
Lipase 71 U/L (23-300) 01/27/25 15:58
Diagnostic Image Results:
01/27/25 CT a/p without contrast
1. RIGHT UPPER QUADRANT LIVER TRANSPLANT in place.
2. Plastic stent in the bile duct extending into the duodenum.
3. Moderate splenomegaly secondary to chronic portal hypertension.
4. Severe chronic bilateral atrophy of the [place] kidneys.
5. LEFT LOWER QUADRANT RENAL TRANSPLANT in place with moderate to severe chronic distention of the left intrarenal collecting system.
6. Moderate distention of the urinary bladder.
7. Moderate amount of fecal material throughout the colon (possibly CONSTIPATION).
8. Severe calcific atherosclerotic plaque in the abdominal aorta.
9. IVC filter in place.
10. Mild colonic diverticulosis
01/18/25 CT Abd/pelvis W Iv Cont
1. No significant acute abnormality identified in the abdomen or pelvis, as described above.
2. Incidental findings as described.
01/11/25 MRi with and without contrast
Choledocholithiasis with upstream common bile duct dilatation.
Splenomegaly.
01/11/25 US abdomen with doppler
1. Patent hepatic vasculature with appropriate directional flow, as described above. Altered flow in the hepatic veins likely related to chronic liver disease.
2. Progressed hydronephrosis of the left lower quadrant transplant kidney.
01/09/25 CT with IV contrast
Liver and renal transplant.
No liver lesion.
Splenomegaly. Portosystemic venous collaterals.
Distended biliary ductal system, as described. Likely related to prior cholecystectomy. Recommend clinical correlation and correlation with liver function tests.
Stable appearance of left pelvic transplant kidney.
Mild rectosigmoid wall thickening, possibly related to underdistention. Clinical correlation recommended to exclude the possibility of proctocolitis.
Mild diverticulosis possible mild diverticulitis at the junction of the distal descending colon and proximal sigmoid colon.
Mild to moderate colonic fecal burden.
No bowel obstruction.
Central lucency of the prostate gland, suggesting a TURP defect. Otherwise, this could represent a central gland prostatic cyst.
Prior GI Procedures:
EUS: 01/13/25 Hiral
- No specimens collected.
- There was dilation in the common bile duct and in the upper third
of the main bile duct which measured up to 9 mm.
- One stone was visualized endosonographically in the lower third
of the main bile duct.
- Pancreatic parenchymal abnormalities consisting of hyperechoic
strands and hyperechoic foci were noted in the pancreatic head.
- There was no sign of significant pathology in the ampulla.
- There was no evidence of significant pathology in the left lobe
of the liver.
ERCP 01/13/25 H[facility]
- A filling defect consistent with a stone was seen on the
cholangiogram.
- A single mild biliary stricture was found in the lower third of
the main bile duct suspicious for possible choledochocholedochal
mismatch.
- The common bile duct, common hepatic duct and bifurcation of the
right and left hepatic ducts were moderately dilated.
- Choledocholithiasis was found. Complete removal was accomplished
by biliary sphincterotomy and balloon extraction.
- One pancreatic stent was placed into the ventral pancreatic duct.
- A biliary sphincterotomy was performed.
- Major papilla was successfully dilated.
- The biliary tree was swept.
ERCP 01/15/25 hiral
- One stent from the pancreatic duct was seen in the major papilla.
- Prior biliary sphincterotomy appeared open.
- The major papilla appeared edematous.
- A single mild biliary stricture was found in the upper third of
the main bile duct.
- The biliary system were dilated.
- The biliary tree was swept and sludge was found.
- One plastic stent was placed into the common hepatic duct.
return 4 weeks for stent removal
Enteroscopy 08/08/2024: Normal esophagus.
- Gastritis. Biopsied.
- Normal examined duodenum. Biopsied.
- Normal examined jejunum. Biopsied.
Colonoscopy: anabel Villalobos 06/2024- fair prep, hemorrhoids, stool in entire colon, diverticulosis, bx neg CVM and microscopic colitis.
Assessment / Plan
-
64yo with hx hep C cirrhosis with prior liver/kidney transplant at [facility] in 2021 on mycophenolate (reduced his dose to one daily, although per patient was told to stop in June by [facility] for possible mycophenolate diarrhea) and tacrolimus,
c-diff post transplant, hx Esophageal varices, prior stenting ? esophageal vs biliary, CAD with prior stenting, IDDM, DVT with filter, BPH with prior TURP, ORIF hip, prior foot infection with several admission in past year. He was admitted several
times past spring with concern for diarrhea with complete workup for diarrhea in past including stool fat neg, fecal calpro normal, and elastase 266 which ruled out pancreatic insufficiency. Last colonoscopy 06/2024- fair prep, hemorrhoids, stool in
entire colon, diverticulosis, bx neg CVM and microscopic colitis. Eventually patient went to [facility] where it was recommended that he stop his mycophenolate for possible mycophenolate induced diarrhea but pt decided to decreased dose with
improvement. Pt also with recent admission 01/09- 01/20 with abdominal pain and diarrhea. CT with concern for proctocolitis, mild diverticulitis at the junction of the distal descending colon proximal sigmoid colon, mild to moderate colonic fecal
burden,central lucency of the prostate gland suggesting a TURP defect versus central gland prostatic cyst. Pt was given antibiotics then had rise in LFT's with further follow up imaging concern for choledocholithiasis. He completed EUS and ERCP x
2 during admission and had repeat CT with improvement. He is due for stent removal 2-4 weeks but not scheduled. He now returns with continued lower abdominal pain. CT on admission with changes of transplant, stent into duodenum, SM, renal
atrophy, bladder distention, moderate stool in colon, filter in place and diverticulosis.
-lower abdominal pain
-mild increased Bili and alk phos
-moderate stool on CT
-bladder distention -- 238 on bladder scan
-s/p EUS ECRP x 2 with choledocholithiasis and stent placement
-recent diverticulitis not noted on repeat CT
-recent diarrhea mycophenolate related to change in dosage
-hyponatremia
-hyperkalemia
-hyperglycemia on admission
-hx liver/kidney transplant on chronic immunosuppression
other med problems:
-hx c-diff post transplant
-hx prior EV with ? stent
-CAD with prior stenting
-IDDM
-hx DVT with prior filter
-BPH with TURP
-hip pain
PLAN:
etiology of lower abdominal pain related to constipation, bladder distention, vs other
bladder scan stable 238 ml
will give 2 liters Colyte prep today if K and Na improved-- reviewed with nursing
will have Dr. Villalobos check stent placement -- pt is due follow up for stent removal -outpatient but not scheduled yet
cont ADA diet
optimized glucose control as marked elevated FBS on admission
trend LFT's with mild increased bili and alk phos on admission
pain control per hospitalist
-
-
Thank you for consultation and allowing me to participate in the patient's care. Please call the clinical sales consultant GI physician during the after hours with any questions or concerns.
[2025-01-28 11:24] LABS: ALT (SGPT) 20 U/L (0-50); AST (SGOT) 16 U/L (17-59); Albumin 3.4 g/dl (3.5-5.0); Alkaline Phosphatase 122 U/L (38-126); Blood Urea Nitrogen 25 mg/dl (9-20); Calcium 8.7 mg/dl (8.4-10.2); Carbon Dioxide 29 mmol/L (22-30); Chloride 106 mmol/L (98-107); Estimated Creatinine Clearance 65 ml/min; Glucose 155 mg/dl (70-99); Potassium 6.2 mmol/L (3.5-5.1); Sodium 138 mmol/L (135-145); Total Protein 5.9 g/dl (6.3-8.2); eGFR > 60.00
[2025-01-28 11:55] LABS: Glucose - Point of Care 62 mg/dl (70-99)
--- NOTE | 2025-01-28 12:16 | CM ---
Initial assessment completed with patient who lives alone in a 1 story ranch style home with no basement, 1 step to enter. 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 Has a RW in the home, does not use. No in-home services. No VA
benefits. No HC-POA. No psychiatric hospitalizations. Does not recall PCP name. Recently scheduled 1st appointment for the end of this month. [facility] is [facility] at [address] [place] [address] in [place]. Discharge POC: Anticipate home with no
needs.
[2025-01-28 12:23] LABS: Glucose - Point of Care 113 mg/dl (70-99)
[2025-01-28] MEDS: NOVOLOG FLEXPEN SC (13:20)
[2025-01-28] MEDS: NOVOLOG FLEXPEN-LOW RESISTANCE SC (13:21)
[2025-01-28] MEDS: NOVOLOG FLEXPEN 8 UNITS SC (13:21)
[2025-01-28 13:25] LABS: Blood Urea Nitrogen 24 mg/dl (9-20); Calcium 8.5 mg/dl (8.4-10.2); Carbon Dioxide 29 mmol/L (22-30); Chloride 105 mmol/L (98-107); Estimated Creatinine Clearance 65 ml/min; Glucose 85 mg/dl (70-99); Potassium 4.8 mmol/L (3.5-5.1); Sodium 133 mmol/L (135-145); eGFR > 60.00
--- NOTE | 2025-01-28 13:42 | PN.DE.MGMTRT ---
Insulin Management
- -
01/28/2025: Diabetes Management Consult
65 year old male with PMH: Liver cirrhosis secondary to chronic hepatitis C status post liver transplant/kidney transplant, anemia of chronic disease, diabetes, chronic right hip pain, chronic back pain, CAD status post stents, bilateral lower
extremity DVT with IVC filter, BPH status post TURP, former smoker.
Patient was recently admitted from 01/09 to 01/20 for abdominal pain and diarrhea, was treated for acute proctocolitis/diverticulitis. He is well known to the Diabetes team from his recent hospital visit.
Patient was previously seeing Dr. Jyaro Rosado but he doesn't like him so is looking for a new endo. He has been asked not to return to his primary doctor so is looking for a new primary doctor as he previously stated. Prior to admission was taking 16
units NovoLog AC with Lantus 35 units @ HS, there is concern of patient not taking his insulin at home, considering his Glucose was 513 on admission.
Recent A1C was 10.5% on 01/10. Cr 1.2, eGFR >60.
Patient is awake, alert and oriented, offers no complaints, resting in bed, able to discuss diabetes care.
Pt received NovoLog 10 at breakfast, noted for hypoglycemia of 62 pre-lunch, pt attributes incident to poor food consumption at breakfast, states he only ate 2 pieces of toast. Otherwise, Glucose has been elevated since admission. HS glucose was
242, received Lantus 18 units, fasting glucose was 212 today.
Will reduce pre-lunch dose to 8 units now and increase HS Lantus to 22 units. Cont NovoLog 10 units AC and low corrective insulin with meals.
Instructed patient o let nurse know if he is not going to be eating much at any of his meals so he can receive a reduced dose of his meal time insulin.
Discussed with Nurse. Cont to follow.
Patient asked for an insulin pump again, states he has to be on an insulin pump. Informed patient that he needs to establish outpatient care and followup with an italian teacher. Discussed process that he would need to go through before starting an
insulin pump - prescribing doctor, insurance confirmation of coverage, and the training with a CPT.
Diabetes History
- -
Type of Diabetes: 2 requiring insulin
Pre-Admission Diabetes Regimen
01/27/25 01/28/25 01/28/25
15:58 09:17 12:52
Creatinine 1.2 1.2 1.2
Insulin Pump Settings
IP Diabetes Regimen
01/27/25 01/27/25 01/27/25
15:58 19:43 19:58
Glucose 568 H* 436 H
POC Glucose 439 H
01/27/25 01/28/25 01/28/25
22:26 08:03 09:17
Glucose 155 H
POC Glucose 242 H 212 H
01/28/25 01/28/25 01/28/25
11:44 12:12 12:52
Glucose 85
POC Glucose 62 L 113 H
Meal type: Breakfast
Amount consumed: 100%
Patient Education
[2025-01-28] MEDS: MIRALAX 34 GRAMS PO (14:40)
[2025-01-28 15:10] VITALS: BP 127/71
[2025-01-28 16:32] LABS: Glucose - Point of Care 189 mg/dl (70-99)
[2025-01-28] MEDS: BENTYL 20 MG PO (16:55)
[2025-01-28] MEDS: NOVOLOG FLEXPEN-LOW RESISTANCE 1 UNITS SC (16:56)
[2025-01-28] MEDS: HEPARIN SC ×2 (20:21→20:27)
[2025-01-28] MEDS: MYFORTIC DELAYED REL. 180 MG PO (20:21)
[2025-01-28 21:44] LABS: Glucose - Point of Care 164 mg/dl (70-99)
[2025-01-28] MEDS: LANTUS 0.22 UNITS SC (21:48)
[2025-01-28] MEDS: REQUIP 0.5 MG PO (21:49)
[2025-01-28 23:06] VITALS: BP 118/68
[2025-01-29] VITALS (8 sets, daily range): BP systolic 17–188; BP diastolic 55–88
[2025-01-29 00:18] LABS: Glucose - Point of Care 256 mg/dl (70-99)
[2025-01-29] MEDS: DILAUDID 0.5 MG IV ×6 (00:31→22:15)
--- NOTE | 2025-01-29 02:21 | DOWNTIME ---
There was a [employer] Client Architect Intern Downtime on 01/29/2025 from 0100 to 01/29/2025 at 0215. Downtime documentation of patient's care, including medication administrations, has been reconciled in the electronic record per guidelines. Refer to the
patient's paper chart under the miscellaneous tab to see printed paper medication records and downtime forms.
[2025-01-29 06:19] LABS: Glucose - Point of Care 138 mg/dl (70-99)
[2025-01-29] MEDS: NOVOLOG FLEXPEN SC ×3 (07:56→17:00)
[2025-01-29] MEDS: NOVOLOG FLEXPEN-LOW RESISTANCE SC ×3 (07:56→17:00)
[2025-01-29] MEDS: MAGNESIUM OXIDE 400 MG PO (07:57)
[2025-01-29] MEDS: PROTONIX 40 MG PO ×2 (07:57→20:40)
[2025-01-29] MEDS: ASPIR LOW (ENTERIC COATED) 81 MG PO (07:57)
[2025-01-29] MEDS: NEURONTIN 300 MG PO ×2 (07:58→20:40)
[2025-01-29] MEDS: PROGRAF 3 MG PO ×2 (07:58→20:40)
[2025-01-29] MEDS: TOPROL XL 12.5 MG PO (08:01)
[2025-01-29] MEDS: HEPARIN SC ×3 (08:02→20:45)
[2025-01-29] MEDS: MYFORTIC DELAYED REL. PO (08:02)
--- NOTE | 2025-01-29 08:12 | PN.DE.MGMTRT ---
Insulin Management
- -
:
01/29/2025: Diabetes Management Consult Follow up
65 year old male admitted 01/27 with c/o abdominal pain and headache. PMH: Liver cirrhosis secondary to chronic hepatitis C status post liver transplant/kidney transplant, anemia of chronic disease, diabetes, chronic right hip pain, chronic back
pain, CAD status post stents, bilateral lower extremity DVT with IVC filter, BPH status post TURP, former smoker.
Patient was recently admitted from 01/09 to 01/20 for abdominal pain and diarrhea, was treated for acute proctocolitis/diverticulitis. He is well known to the Diabetes team from his recent hospital visit.
Patient was previously seeing Dr. Jayro Rosado but he doesn't like him so is looking for a new endo. He has been asked not to return to his primary doctor so is looking for a new primary doctor as he previously stated, which he has not done since last
admission. Prior to admission was taking 16 units NovoLog AC with Lantus 35 units @ HS, there is concern of patient not taking his insulin at home, considering his Glucose was 513 on admission.
Recent A1C was 10.5% on 01/10. Cr 1.2, eGFR >60.
Patient is awake, alert and oriented, offers no complaints, resting in bed, able to discuss diabetes care.
01/28 Pt received NovoLog 10 units at breakfast, noted for hypoglycemia of 62 pre-lunch, pt attributes incident to poor food consumption at breakfast, states he only ate 2 pieces of toast. Otherwise, glucose has been elevated since admission. Pre
dinner glucose 189, received 10 units novolog with dinner, HS glucose 164. 12AM glucose 256.
01/29 Fasting glucose today 138. Patient is currently NPO for procedure today. When diet resumed will continue current regimen 22 units lantus @ hs with novolog 10 units AC and low corrective insulin with meals.
Instructed patient to let nurse know if he is not going to be eating much at any of his meals so he can receive a reduced dose of his meal time insulin.
Discussed with Nurse. Cont to follow.
Patient asked for an insulin pump again, states he has to be on an insulin pump. Informed patient that he needs to establish outpatient care and followup with an prorate clerk. Discussed process that he would need to go through before starting an
insulin pump - prescribing doctor, insurance confirmation of coverage, and the training with a CPT.
Diabetes History
- -
Type of Diabetes: 2 requiring insulin
Pre-Admission Diabetes Regimen
01/28/25 01/28/25
09:17 12:52
Creatinine 1.2 1.2
Insulin Pump Settings
IP Diabetes Regimen
01/28/25 01/28/25 01/28/25
08:03 09:17 11:44
Glucose 155 H
POC Glucose 212 H 62 L
01/28/25 01/28/25 01/28/25
12:12 12:52 16:18
Glucose 85
POC Glucose 113 H 189 H
01/28/25 01/29/25 01/29/25
21:33 00:06 06:08
Glucose
POC Glucose 164 H 256 H 138 H
Meal type: Dinner
Meal type: Breakfast
Amount consumed: 100%
Amount consumed: 100%
Patient Education
[2025-01-29 08:17] LABS: INR 0.95; PT 13.2 Sec (11.4-14.6)
--- NOTE | 2025-01-29 08:22 | W.PN.HOSP.TC ---
Today's Communication/Plan
-
Biliary stent removal today. Plan to increase bowel regimen. Pain control
Assessment / Plan
Assessment / Plan
Physical exam:
General: Well Developed, Well Nourished and No Apparent Distress
HEENT: Normocephalic, Atraumatic and Moist Mucous Membranes
Respiratory: Clear to Auscultation; Negative Wheezes, Rales or Rhonchi
Cardiac: Regular Rhythm and S1/S2
GI: Soft, Nontender and Nondistended
Musculoskeletal: No Clubbing, No Cyanosis and No Edema
Neuro: Awake, Alert and Oriented
Psych: Calm
A/P:
Impression:
65-year-old male past medical history of liver cirrhosis secondary to chronic hepatitis C status post liver transplant/kidney transplant, anemia of chronic disease, diabetes, chronic right hip pain, chronic back pain, CAD status post stents,
bilateral lower extremity DVT with IVC filter, BPH status post TURP, prior history of C. difficile, prior drug use, former smoker, presenting with lower abdominal pain that got particularly bad within the past few days. �He states that he has had
this pain during the recent hospitalization which did not improve with antibiotics and ERCP x 2. �He also does have urinary burning and frequent urination. �He had an episode of confusion while in the store.
He is having 1 episode of diarrhea in the morning every day occasionally with mucus.
Patient was recently admitted from 01/09 to 01/20 for abdominal pain and diarrhea. �He was found to have acute proctocolitis/diverticulitis treated with antibiotics. �He later developed transaminitis and was taken for ERCP x 2. �First ERCP was
notable for biliary sphincterotomy and pancreatic stent placed.. �He had a second ERCP due to transaminitis with sphincterotomy and placement of common hepatic duct stent.
Vital signs show blood pressure 170/96. Labs show blood sugar 568 but he did not take his insulin today which he did not eat today. �Sodium 125. �Potassium 5.3.
CT abdomen pelvis shows stent in the bile duct extending into the duodenum, only acute findings are moderate distention of the urinary bladder, moderate fecal material throughout the colon. �CT head shows no acute abnormality. Unclear etiology of
abdominal pain. �Labs not consistent with recurrent biliary obstruction or acute pancreatitis from recent ERCP. �patient recieved Dilaudid for pain. Hyperglycemia not consistent with DKA as no anion gap .GI consulted. �1 L IV fluids given.
�Headache likely secondary to stress and decreased p.o. intake today. Continue Lantus but reduce from 35 to 18 units as patient not eating currently.
Patient noted to have hyperkalemia, repeat lab
Assessment/plan:
Abdominal pain unclear etiology
Recent diverticulitis
Recent ERCP with Removal of sludge from the biliary tree. Plastic stent placed in the common hepatic duct.
-T bili 1.4
-GI consult.
-obtain bladder scan
-CT abdomen pelvis with . RIGHT UPPER QUADRANT LIVER TRANSPLANT in place.
2. Plastic stent in the bile duct extending into the duodenum.
3. Moderate splenomegaly secondary to chronic portal hypertension.
4. Severe chronic bilateral atrophy of the [place] kidneys.
5. LEFT LOWER QUADRANT RENAL TRANSPLANT in place with moderate to severe chronic distention of the left intrarenal collecting system.
6. Moderate distention of the urinary bladder.
7. Moderate amount of fecal material throughout the colon (possibly CONSTIPATION).
8. Severe calcific atherosclerotic plaque in the abdominal aorta.
9. IVC filter in place.
10. Mild colonic diverticulosis.
Seen by GI recommended bowel regimen after correcting hyperkalemia.
01/29:
Would be more aggressive with bowel regimen but awaiting for GI eval now that potassium confirmed to be normal x 2 after abnormal lab yesterday.
Discussed with attending RN.
Plan for biliary stent removal today-n.p.o. for procedure.
Urinary incontinence, frequency concern for UTI
- Urinalysis negative
Ruled out hyperkalemia.
Repeat BMP shows normal potassium
Headache likely due to the abdominal pain decreased oral intake
-CT head with no acute findings
-Tylenol prn for MARTI.
Type 2 Dm with hyperglycemia
-blood sugar in 400's
-sliding scale
-CHO diet, Lantus 18 units
-insulin 10units with meals
01/28
Dropped blood sugar today, will adjust insulin regimen
Diabetic management consult
01/29
Lantus 22 units every night
NovoLog 10 units before meals
Insulin sliding scale, low resistance
Appreciated P[employer]ER [employer] P[employer]P MILL OPERATOR input
Anemia of chronic disease
-hgb stable at 12.7, no active bleeding
-ctm
01/29:
Hemoglobin 12.4 today-stable
#hyponatremia
Resolved
#Cirrhosis secondary to chronic hepatitis C status post liver/kidney transplant
- Continue tacrolimus, mycophenolate
#Chronic right hip pain
Chronic back pain
- Continue gabapentin
#CAD status post stents
- Continue metoprolol
- Continue aspirin
#Bilateral lower extremity DVT with IVC filter
#BPH status post TURP
#Former smoker
#Restless leg syndrome
-continue ropinirole
CODE STATUS: Full code
DVT prophylaxis: Heparin
Diet: n.p.o. for procedure. Resume DM diet after procedure.
Disposition: Biliary stent removal, bowel regimen, and pain control
Total time spent on today's encounter was 55 minutes which included time spent in counseling the patient/family regarding diagnosis and treatment plan as listed above, goals of care, and symptom management. Case was discussed with nursing staff,
specialists, and care coordinators/case management. All labs and imaging personally reviewed by me. Remainder the time spent in detailed review of previous records, lab data, imaging, and other medical provider documentation.
Anticipated Discharge: 24 - 48 hours
Subjective/Interval History
-
Date of Service: January 29, 2025
Patient still complains of abdominal pain, moderate intensity, constant, lower abdomen. Reports bowel movement but not enough. No nausea or vomiting. Afebrile
Objective Data
-
Labs:
Laboratory Results
01/29/25
07:35
WBC Pending
Hgb Pending
Hct Pending
Plt Count Pending
PT 13.2
INR 0.95
Sodium Pending
Potassium Pending
Chloride Pending
Carbon Dioxide Pending
BUN Pending
Creatinine Pending
Glucose Pending
Calcium Pending
Total Bilirubin Pending
AST Pending
ALT Pending
Alkaline Phosphatase Pending
Vital Signs:
Vital Signs
Temp Pulse Resp BP Pulse Ox
98.2 F 76 16 109/64 100
01/29/25 08:05 01/29/25 08:05 01/29/25 08:05 01/29/25 08:05 01/29/25 08:05
I&O
01/28/25 01/29/25 01/30/25
06:59 06:59 06:59
Intake Total 480 / 480
Balance 480 / 480
[2025-01-29 08:29] LABS: Hematocrit 36.3 % (39.0-52.0); Hemoglobin 12.4 g/dL (13.0-18.0); Mean Corp Hgb Conc. 34.2 g/dL (33.0-37.0); Mean Corpuscular Volume 89.0 fL (80.0-94.0); Platelet Count 136 10^3/uL (130-400); Red Cell Dist. Width 15.1 % (11.5-14.5)
[2025-01-29 08:45] LABS: ALT (SGPT) 18 U/L (0-50); AST (SGOT) 16 U/L (17-59); Albumin 3.3 g/dl (3.5-5.0); Alkaline Phosphatase 124 U/L (38-126); Blood Urea Nitrogen 27 mg/dl (9-20); Calcium 8.6 mg/dl (8.4-10.2); Carbon Dioxide 30 mmol/L (22-30); Chloride 106 mmol/L (98-107); Estimated Creatinine Clearance 60 ml/min; Glucose 155 mg/dl (70-99); Potassium 5.1 mmol/L (3.5-5.1); Sodium 138 mmol/L (135-145); Total Protein 5.8 g/dl (6.3-8.2); eGFR > 60.00
[2025-01-29] MEDS: BENTYL 20 MG PO (09:03)
[2025-01-29 11:59] LABS: Glucose - Point of Care 127 mg/dl (70-99)
--- NOTE | 2025-01-29 15:29 | CM ---
Biliary stent removal, increased bowel regimen. Awaiting therapy eval and recs. Discharge POC: Await therapy eval. Possibly will need RN vs Home with NN.
[2025-01-29 17:34] LABS: Glucose - Point of Care 102 mg/dl (70-99)
[2025-01-29 19:44] LABS: Glucose - Point of Care 83 mg/dl (70-99)
--- NOTE | 2025-01-29 19:52 | PTCARENOTE ---
Patient back to floor from procedure
[2025-01-29] MEDS: MYFORTIC DELAYED REL. 180 MG PO (20:40)
[2025-01-29] MEDS: MIRALAX 17 GRAMS PO (20:54)
[2025-01-29] MEDS: SENOKOT-S 1 TABLET PO (20:54)
[2025-01-29] MEDS: REQUIP 0.5 MG PO (21:32)
[2025-01-29] MEDS: LANTUS 0.22 UNITS SC (22:26)
[2025-01-29 22:33] LABS: Glucose - Point of Care 288 mg/dl (70-99)
[2025-01-30 00:58] LABS: Glucose - Point of Care 320 mg/dl (70-99)
[2025-01-30 03:16] VITALS: BP 154/78
[2025-01-30] MEDS: DILAUDID 0.5 MG IV ×5 (06:34→22:42)
--- NOTE | 2025-01-30 07:46 | PN.DE.MGMTRT ---
Insulin Management
- -
01/30/2025: Diabetes Management Consult Follow up
65 year old male admitted 01/27 with c/o abdominal pain and headache. PMH: Liver cirrhosis secondary to chronic hepatitis C status post liver transplant/kidney transplant, anemia of chronic disease, diabetes, chronic right hip pain, chronic back
pain, CAD status post stents, bilateral lower extremity DVT with IVC filter, BPH status post TURP, former smoker.
Patient was recently admitted from 01/09 to 01/20 for abdominal pain and diarrhea, was treated for acute proctocolitis/diverticulitis. He is well known to the Diabetes team from his recent hospital visit.
Patient was previously seeing Dr. Jayro Rosado but he doesn't like him so is looking for a new endo. He has been asked not to return to his primary doctor so is looking for a new primary doctor as he previously stated, which he has not done since last
admission. Prior to admission was taking 16 units NovoLog AC with Lantus 35 units @ HS, there is concern of patient not taking his insulin at home, considering his Glucose was 513 on admission.
Recent A1C was 10.5% on 01/10. Cr 1.2, eGFR >60.
Patient is awake, alert and oriented, offers no complaints, resting in bed, able to discuss diabetes care. s/p removal of biliary stent 01/29.
01/29 Fasting glucose 138. Patient NPO for procedure all day, glucose 102 to 127. Suspect late meal was offered after procedure, hs glucose 288, 12am glucose 320.
01/30 Fasting glucose 103. Will resume 10 units novolog with low corrective insulin AC; continue lantus 22 units @ HS.
Instructed patient to let nurse know if he is not going to be eating much at any of his meals so he can receive a reduced dose of his meal time insulin.
Discussed with Nurse. Cont to follow.
Reinforced with patient the process for obtaining an insulin pump and to follow with primary doctor and endocrine.
Diabetes History
- -
Type of Diabetes: 2 requiring insulin
Pre-Admission Diabetes Regimen
01/29/25
07:35
Creatinine 1.3
Insulin Pump Settings
IP Diabetes Regimen
01/29/25 01/29/25 01/29/25
07:35 11:48 17:22
Glucose 155 H
POC Glucose 127 H 102 H
01/29/25 01/29/25 01/30/25
19:43 22:22 00:47
Glucose
POC Glucose 83 288 H 320 H
Meal type: Lunch
Meal type: Breakfast
Patient Education
[2025-01-30 07:48] LABS: Glucose - Point of Care 103 mg/dl (70-99)
--- NOTE | 2025-01-30 07:50 | W.PN.GI.CBS2 ---
Today's Communication / Plan
-
Give enema. GI will sign off, call with ?
Assessment / Plan
-
64yo with hx hep C cirrhosis with prior liver/kidney transplant at [facility] in 2021 on mycophenolate (reduced his dose to one daily, although per patient was told to stop in June by [facility] for possible mycophenolate diarrhea) and tacrolimus,
c-diff post transplant, hx Esophageal varices, prior stenting ? esophageal vs biliary, CAD with prior stenting, IDDM, DVT with filter, BPH with prior TURP, ORIF hip, prior foot infection with several admission in past year. He was admitted several
times past spring with concern for diarrhea with complete workup for diarrhea in past including stool fat neg, fecal calpro normal, and elastase 266 which ruled out pancreatic insufficiency. Last colonoscopy 06/2024- fair prep, hemorrhoids, stool in
entire colon, diverticulosis, bx neg CVM and microscopic colitis. Eventually patient went to [facility] where it was recommended that he stop his mycophenolate for possible mycophenolate induced diarrhea but pt decided to decreased dose with
improvement. Pt also with recent admission 01/09- 01/20 with abdominal pain and diarrhea. CT with concern for proctocolitis, mild diverticulitis at the junction of the distal descending colon proximal sigmoid colon, mild to moderate colonic fecal
burden,central lucency of the prostate gland suggesting a TURP defect versus central gland prostatic cyst. Pt was given antibiotics then had rise in LFT's with further follow up imaging concern for choledocholithiasis. He completed EUS and ERCP x
2 during admission and had repeat CT with improvement. He is due for stent removal 2-4 weeks but not scheduled. He now returns with continued lower abdominal pain. CT on admission with changes of transplant, stent into duodenum, SM, renal
atrophy, bladder distention, moderate stool in colon, filter in place and diverticulosis.
-lower abdominal pain
-mild increased Bili and alk phos
-moderate stool on CT
-bladder distention -- 238 on bladder scan
-s/p EUS ECRP x 2 with choledocholithiasis and stent placement
-recent diverticulitis not noted on repeat CT
-recent diarrhea mycophenolate related to change in dosage
-hyponatremia
-hyperkalemia
-hyperglycemia on admission
-hx liver/kidney transplant on chronic immunosuppression
other med problems:
-hx c-diff post transplant
-hx prior EV with ? stent
-CAD with prior stenting
-IDDM
-hx DVT with prior filter
-BPH with TURP
-hip pain
PLAN:
etiology of lower abdominal pain related to constipation, bladder distention, vs other-- started on bowel regimen, small BM 2 days ago, give enema today
bladder scan stable 238 ml
s/p EGD w/ stent pull 01/29
LFTs normalized- f/u outpatient with food beverage manager at [facility]
Monitor electrolytes
Patient is stable for d/c from a GI perspective, GI will sign off, please call with ?
Subjective
Subjective
Date of Service: January 30, 2025
Patient seen in follow-up this morning, had EGD with stent pull with Dr. Villalobos yesterday. Still has lower abdominal pain, given something to move his bowels last night but hasn't gone. Otherwise, doing well.
Objective
Data Reviewed
Laboratory Data:
Laboratory Results
PT 13.2 Sec (11.4-14.6) 01/29/25 07:35
INR 0.95 01/29/25 07:35
Total Bilirubin 0.7 mg/dl (0.2-1.3) 01/29/25 07:35
AST 16 U/L (17-59) L 01/29/25 07:35
ALT 18 U/L (0-50) 01/29/25 07:35
Alkaline Phosphatase 124 U/L (38-126) 01/29/25 07:35
Lipase 71 U/L (23-300) 01/27/25 15:58
Vital Signs and I&O:
Vital Signs
Temp Pulse Resp BP Pulse Ox
98.3 F 74 16 154/78 100
01/30/25 03:16 01/30/25 03:16 01/30/25 03:16 01/30/25 03:16 01/30/25 03:16
I&O
01/29/25 01/30/25 01/31/25
06:59 06:59 06:59
Intake Total 480 / 480
Output Total 500 / 500
Balance 480 / 480 -500 / -500
Physical Exam
Physical Exam
GI: Soft, Non Distended and Tender (Lower abdominal tenderness)
[2025-01-30 07:55] VITALS: BP 108/65
[2025-01-30 08:40] LABS: Hematocrit 36.9 % (39.0-52.0); Hemoglobin 12.6 g/dL (13.0-18.0); Mean Corp Hgb Conc. 34.1 g/dL (33.0-37.0); Mean Corpuscular Volume 89.3 fL (80.0-94.0); Platelet Count 141 10^3/uL (130-400); Red Cell Dist. Width 15.1 % (11.5-14.5)
[2025-01-30 08:59] LABS: ALT (SGPT) 16 U/L (0-50); AST (SGOT) 17 U/L (17-59); Albumin 3.2 g/dl (3.5-5.0); Alkaline Phosphatase 110 U/L (38-126); Blood Urea Nitrogen 24 mg/dl (9-20); Calcium 8.6 mg/dl (8.4-10.2); Carbon Dioxide 29 mmol/L (22-30); Chloride 108 mmol/L (98-107); Estimated Creatinine Clearance 60 ml/min; Glucose 82 mg/dl (70-99); Potassium 4.9 mmol/L (3.5-5.1); Sodium 136 mmol/L (135-145); eGFR > 60.00
[2025-01-30 09:08] LABS: Total Protein 6.0 g/dl (6.3-8.2)
[2025-01-30] MEDS: NOVOLOG FLEXPEN-LOW RESISTANCE SC ×3 (09:38→18:04)
[2025-01-30] MEDS: NOVOLOG FLEXPEN 10 UNITS SC ×3 (09:38→18:05)
[2025-01-30] MEDS: MYFORTIC DELAYED REL. 180 MG PO ×2 (09:39→19:41)
[2025-01-30] MEDS: PROGRAF 3 MG PO ×2 (09:39→19:41)
[2025-01-30] MEDS: MAGNESIUM OXIDE 400 MG PO (09:39)
[2025-01-30] MEDS: TOPROL XL 12.5 MG PO (09:39)
[2025-01-30] MEDS: NEURONTIN 300 MG PO ×2 (09:42→19:41)
[2025-01-30] MEDS: ASPIR LOW (ENTERIC COATED) 81 MG PO (09:42)
[2025-01-30] MEDS: HEPARIN SC ×2 (09:43→19:56)
[2025-01-30] MEDS: PROTONIX 40 MG PO ×2 (09:43→19:42)
--- NOTE | 2025-01-30 10:58 | W.PN.HOSP.TC ---
Today's Communication/Plan
-
Bowel regimen. Discharge planning
Assessment / Plan
Assessment / Plan
Physical exam:
General: Well Developed, Well Nourished and No Apparent Distress
HEENT: Normocephalic, Atraumatic and Moist Mucous Membranes
Respiratory: Clear to Auscultation; Negative Wheezes, Rales or Rhonchi
Cardiac: Regular Rhythm and S1/S2
GI: Soft, tender and Nondistended
Musculoskeletal: No Clubbing, No Cyanosis and No Edema
Neuro: Awake, Alert and Oriented
Psych: Calm
A/P:
Impression:
65-year-old male past medical history of liver cirrhosis secondary to chronic hepatitis C status post liver transplant/kidney transplant, anemia of chronic disease, diabetes, chronic right hip pain, chronic back pain, CAD status post stents,
bilateral lower extremity DVT with IVC filter, BPH status post TURP, prior history of C. difficile, prior drug use, former smoker, presenting with lower abdominal pain that got particularly bad within the past few days. �He states that he has had
this pain during the recent hospitalization which did not improve with antibiotics and ERCP x 2. �He also does have urinary burning and frequent urination. �He had an episode of confusion while in the store.
He is having 1 episode of diarrhea in the morning every day occasionally with mucus.
Patient was recently admitted from 01/09 to 01/20 for abdominal pain and diarrhea. �He was found to have acute proctocolitis/diverticulitis treated with antibiotics. �He later developed transaminitis and was taken for ERCP x 2. �First ERCP was
notable for biliary sphincterotomy and pancreatic stent placed.. �He had a second ERCP due to transaminitis with sphincterotomy and placement of common hepatic duct stent.
Vital signs show blood pressure 170/96. Labs show blood sugar 568 but he did not take his insulin today which he did not eat today. �Sodium 125. �Potassium 5.3.
CT abdomen pelvis shows stent in the bile duct extending into the duodenum, only acute findings are moderate distention of the urinary bladder, moderate fecal material throughout the colon. �CT head shows no acute abnormality. Unclear etiology of
abdominal pain. �Labs not consistent with recurrent biliary obstruction or acute pancreatitis from recent ERCP. �patient recieved Dilaudid for pain. Hyperglycemia not consistent with DKA as no anion gap .GI consulted. �1 L IV fluids given.
�Headache likely secondary to stress and decreased p.o. intake today. Continue Lantus but reduce from 35 to 18 units as patient not eating currently.
Patient noted to have hyperkalemia, repeat lab
Assessment/plan:
Abdominal pain unclear etiology
Recent diverticulitis
Recent ERCP with Removal of sludge from the biliary tree. Plastic stent placed in the common hepatic duct.
-T bili 1.4
-GI consult.
-obtain bladder scan
-CT abdomen pelvis with . RIGHT UPPER QUADRANT LIVER TRANSPLANT in place.
2. Plastic stent in the bile duct extending into the duodenum.
3. Moderate splenomegaly secondary to chronic portal hypertension.
4. Severe chronic bilateral atrophy of the [place] kidneys.
5. LEFT LOWER QUADRANT RENAL TRANSPLANT in place with moderate to severe chronic distention of the left intrarenal collecting system.
6. Moderate distention of the urinary bladder.
7. Moderate amount of fecal material throughout the colon (possibly CONSTIPATION).
8. Severe calcific atherosclerotic plaque in the abdominal aorta.
9. IVC filter in place.
10. Mild colonic diverticulosis.
Seen by GI recommended bowel regimen after correcting hyperkalemia.
01/29:
Would be more aggressive with bowel regimen but awaiting for GI eval now that potassium confirmed to be normal x 2 after abnormal lab yesterday.
Discussed with attending RN.
Plan for biliary stent removal today-n.p.o. for procedure.
01/30:
Status post biliary stent removal yesterday
Appreciated GI input and they are signing off
Enema today
Scheduled bowel regimen
PT eval today
Urinary incontinence, frequency concern for UTI
- Urinalysis negative
Ruled out hyperkalemia.
Repeat BMP shows normal potassium
Headache likely due to the abdominal pain decreased oral intake
-CT head with no acute findings
-Tylenol prn for MARTI.
Type 2 Dm with hyperglycemia
-blood sugar in 400's
-sliding scale
-CHO diet, Lantus 18 units
-insulin 10units with meals
01/28
Dropped blood sugar today, will adjust insulin regimen
Diabetic management consult
01/29
Lantus 22 units every night
NovoLog 10 units before meals
Insulin sliding scale, low resistance
Appreciated TREE AND SHRUB WORKER input
01/30
Continue current diabetic regimen
Anemia of chronic disease
-hgb stable at 12.7, no active bleeding
-ctm
01/30:
Hemoglobin 12.6 today-stable
#hyponatremia
Resolved
#Cirrhosis secondary to chronic hepatitis C status post liver/kidney transplant
- Continue tacrolimus, mycophenolate
#Chronic right hip pain
Chronic back pain
- Continue gabapentin
#CAD status post stents
- Continue metoprolol
- Continue aspirin
#Bilateral lower extremity DVT with IVC filter
#BPH status post TURP
#Former smoker
#Restless leg syndrome
-continue ropinirole
CODE STATUS: Full code
DVT prophylaxis: Heparin
Diet: n.p.o. for procedure. Resume DM diet after procedure.
Disposition: Biliary stent removal, bowel regimen, and pain control
Total time spent on today's encounter was 35 minutes which included time spent in counseling the patient/family regarding diagnosis and treatment plan as listed above, goals of care, and symptom management. Case was discussed with nursing staff,
specialists, and care coordinators/case management. All labs and imaging personally reviewed by me. Remainder the time spent in detailed review of previous records, lab data, imaging, and other medical provider documentation.
Anticipated Discharge: Within 24 hours
Subjective/Interval History
-
Date of Service: January 30, 2025
Yesterday patient slid out of the bed and felt lightheaded. Patient feels better overall although still having some lower abdominal discomfort. Had 2 small bowel movement yesterday. Afebrile
Objective Data
-
Labs:
Laboratory Results
01/30/25
07:55
WBC 6.4
Hgb 12.6 L
Hct 36.9 L
Plt Count 141
Sodium 136
Potassium 4.9
Chloride 108 H
Carbon Dioxide 29
BUN 24 H
Creatinine 1.3
Glucose 82
Calcium 8.6
Total Bilirubin 1.1
AST 17
ALT 16
Alkaline Phosphatase 110
Vital Signs:
Vital Signs
Temp Pulse Resp BP Pulse Ox
98.8 F 78 17 108/65 96
01/30/25 07:55 01/30/25 07:55 01/30/25 07:55 01/30/25 07:55 01/30/25 07:55
I&O
01/29/25 01/30/25 01/31/25
06:59 06:59 06:59
Intake Total 480 / 480
Output Total 500 / 500
Balance 480 / 480 -500 / -500
[2025-01-30 11:03] VITALS: BP 111/65; BP 119/58; PULSE 75; O2SAT 98
[2025-01-30 11:28] LABS: Glucose - Point of Care 108 mg/dl (70-99)
[2025-01-30 11:33] VITALS: BP 110/65
--- NOTE | 2025-01-30 15:37 | CM ---
Discharge POC: Anticipate home with no needs.
[2025-01-30 15:38] VITALS: BP 114/58
[2025-01-30 16:28] LABS: Glucose - Point of Care 83 mg/dl (70-99)
[2025-01-30 17:18] LABS: Glucose - Point of Care 102 mg/dl (70-99)
[2025-01-30] MEDS: SENOKOT-S 1 TABLET PO (19:42)
[2025-01-30 21:43] LABS: Glucose - Point of Care 157 mg/dl (70-99)
[2025-01-30] MEDS: LANTUS 0.22 UNITS SC (21:48)
[2025-01-30] MEDS: REQUIP 0.5 MG PO (21:48)
[2025-01-30 23:02] VITALS: BP 138/74
[2025-01-31] MEDS: DILAUDID 0.5 MG IV ×5 (02:45→20:04)
[2025-01-31] MEDS: FLUSH (NSS) 2 FLUSH IV ×2 (02:46→19:58)
--- NOTE | 2025-01-31 07:17 | PN.DE.MGMTRT ---
Insulin Management
- -
01/31/2025: Diabetes Management Follow up
65 year old male admitted 01/27 with c/o abdominal pain and headache. PMH: Liver cirrhosis secondary to chronic hepatitis C status post liver transplant/kidney transplant, anemia of chronic disease, diabetes, chronic right hip pain, chronic back
pain, CAD status post stents, bilateral lower extremity DVT with IVC filter, BPH status post TURP, former smoker.
Patient was recently admitted from 01/09 to 01/20 for abdominal pain and diarrhea, was treated for acute proctocolitis/diverticulitis. He is well known to the Diabetes team from his recent hospital visit.
Patient was previously seeing Dr. Jayro Rosado but he doesn't like him so is looking for a new endo. He has been asked not to return to his primary doctor so is looking for a new primary doctor as he previously stated, which he has not done since last
admission. Prior to admission was taking 16 units NovoLog AC with Lantus 35 units @ HS, there is concern of patient not taking his insulin at home, considering his Glucose was 513 on admission.
Recent A1C was 10.5% on 01/10. Cr 1.2, eGFR >60.
Patient is awake, alert and oriented, offers no complaints, resting in bed, able to discuss diabetes care.
POD #3 s/p removal of biliary stent 01/29.
01/30 HS glucose was 157, patient had a snack at bedtime, Fasting glucose up to 312 V, 340 POC today.
Pt states he has been eating a snack at bedtime because he is afraid his blood will drop. He reports that his lunch time blood sugar is 78, informed pt that he received 17 units of NovoLog with breakfast because his glucose was 340 in AM due to the
snack he ate overnight.
Explained to pt that best course of action would be to reduce his HS Lantus dose to avoid any hypoglycemia and that he should not be eating a snack at bedtime if glucose is not <150 because it will lead to escalated blood sugars at night.
Pt was unhappy and very rude about this, He was insistent on having a snack because that is what he does at home.
I Emphasized the importance of reducing his A1C that is currently at 10.5% and the importance of optimal glucose control while he remains in the hospital.
Will reduce Lantus to 18 units @ HS. Cont NovoLog 10 units with low corrective insulin AC
Instructed patient to let nurse know if he is not going to be eating much at any of his meals so he can receive a reduced dose of his meal time insulin.
Discussed with Nurse. Cont to follow.
Please DO NOT administer snack at bedtime. HS Lantus dose has been reduced and can further be adjusted if pt is hypoglycemic in AM.
Reinforced with patient the process for obtaining an insulin pump and to follow up with his PCP and endocrine.
Diabetes History
- -
Type of Diabetes: 2 requiring insulin
Pre-Admission Diabetes Regimen
01/30/25
07:55
Creatinine 1.3
Insulin Pump Settings
IP Diabetes Regimen
01/30/25 01/30/25 01/30/25
07:36 07:55 11:16
Glucose 82
POC Glucose 103 H 108 H
01/30/25 01/30/25 01/30/25
16:17 17:07 21:31
Glucose
POC Glucose 83 102 H 157 H
Meal type: Lunch
Meal type: Breakfast
Amount consumed: 100%
Amount consumed: 100%
Patient Education
[2025-01-31] MEDS: HEPARIN SC ×2 (07:41→19:52)
[2025-01-31] MEDS: MIRALAX 17 GRAMS PO (07:43)
[2025-01-31] MEDS: PROGRAF 3 MG PO ×2 (07:44→19:59)
[2025-01-31] MEDS: ASPIR LOW (ENTERIC COATED) 81 MG PO (07:45)
[2025-01-31] MEDS: MYFORTIC DELAYED REL. PO ×2 (07:45→07:55)
[2025-01-31] MEDS: SENOKOT-S 1 TABLET PO ×2 (07:45→19:59)
[2025-01-31] MEDS: PROTONIX 40 MG PO ×2 (07:46→20:00)
[2025-01-31] MEDS: TOPROL XL 12.5 MG PO (07:46)
[2025-01-31] MEDS: NEURONTIN 300 MG PO ×2 (07:46→19:59)
[2025-01-31] MEDS: MAGNESIUM OXIDE 400 MG PO (07:46)
[2025-01-31 07:50] LABS: Hematocrit 33.8 % (39.0-52.0); Hemoglobin 11.8 g/dL (13.0-18.0); Mean Corp Hgb Conc. 34.9 g/dL (33.0-37.0); Mean Corpuscular Volume 86.2 fL (80.0-94.0); Platelet Count 109 10^3/uL (130-400); Red Cell Dist. Width 15.0 % (11.5-14.5)
[2025-01-31 07:58] LABS: Glucose - Point of Care 340 mg/dl (70-99)
[2025-01-31 08:00] VITALS: BP 162/88
[2025-01-31] MEDS: NOVOLOG FLEXPEN 10 UNITS SC ×3 (08:01→17:52)
[2025-01-31] MEDS: NOVOLOG FLEXPEN-LOW RESISTANCE 7 UNITS SC (08:02)
[2025-01-31 08:33] LABS: Glucose - Point of Care 286 mg/dl (70-99)
[2025-01-31 08:33] LABS: ALT (SGPT) 15 U/L (0-50); AST (SGOT) 18 U/L (17-59); Albumin 3.2 g/dl (3.5-5.0); Alkaline Phosphatase 125 U/L (38-126); Blood Urea Nitrogen 28 mg/dl (9-20); Calcium 8.3 mg/dl (8.4-10.2); Carbon Dioxide 31 mmol/L (22-30); Chloride 103 mmol/L (98-107); Estimated Creatinine Clearance 56 ml/min; Glucose 312 mg/dl (70-99); Potassium 5.0 mmol/L (3.5-5.1); Sodium 132 mmol/L (135-145); Total Protein 5.7 g/dl (6.3-8.2); eGFR 56.48
--- NOTE | 2025-01-31 11:05 | W.PN.HOSP.TC ---
Today's Communication/Plan
-
Bowel regimen
Assessment / Plan
Assessment / Plan
Physical exam:
General: Well Developed, Well Nourished and No Apparent Distress
HEENT: Normocephalic, Atraumatic and Moist Mucous Membranes
Respiratory: Clear to Auscultation; Negative Wheezes, Rales or Rhonchi
Cardiac: Regular Rhythm and S1/S2
GI: Soft, tender and Nondistended
Musculoskeletal: No Clubbing, No Cyanosis and No Edema
Neuro: Awake, Alert and Oriented, no neuro deficits
Psych: Calm
A/P:
Impression:
65-year-old male past medical history of liver cirrhosis secondary to chronic hepatitis C status post liver transplant/kidney transplant, anemia of chronic disease, diabetes, chronic right hip pain, chronic back pain, CAD status post stents,
bilateral lower extremity DVT with IVC filter, BPH status post TURP, prior history of C. difficile, prior drug use, former smoker, presenting with lower abdominal pain that got particularly bad within the past few days. �He states that he has had
this pain during the recent hospitalization which did not improve with antibiotics and ERCP x 2. �He also does have urinary burning and frequent urination. �He had an episode of confusion while in the store.
He is having 1 episode of diarrhea in the morning every day occasionally with mucus.
Patient was recently admitted from 01/09 to 01/20 for abdominal pain and diarrhea. �He was found to have acute proctocolitis/diverticulitis treated with antibiotics. �He later developed transaminitis and was taken for ERCP x 2. �First ERCP was
notable for biliary sphincterotomy and pancreatic stent placed.. �He had a second ERCP due to transaminitis with sphincterotomy and placement of common hepatic duct stent.
Vital signs show blood pressure 170/96. Labs show blood sugar 568 but he did not take his insulin today which he did not eat today. �Sodium 125. �Potassium 5.3.
CT abdomen pelvis shows stent in the bile duct extending into the duodenum, only acute findings are moderate distention of the urinary bladder, moderate fecal material throughout the colon. �CT head shows no acute abnormality. Unclear etiology of
abdominal pain. �Labs not consistent with recurrent biliary obstruction or acute pancreatitis from recent ERCP. �patient recieved Dilaudid for pain. Hyperglycemia not consistent with DKA as no anion gap .GI consulted. �1 L IV fluids given.
�Headache likely secondary to stress and decreased p.o. intake today. Continue Lantus but reduce from 35 to 18 units as patient not eating currently.
Patient noted to have hyperkalemia, repeat lab
Assessment/plan:
Abdominal pain unclear etiology
Recent diverticulitis
Recent ERCP with Removal of sludge from the biliary tree. Plastic stent placed in the common hepatic duct.
-T bili 1.4
-GI consult.
-obtain bladder scan
-CT abdomen pelvis with . RIGHT UPPER QUADRANT LIVER TRANSPLANT in place.
2. Plastic stent in the bile duct extending into the duodenum.
3. Moderate splenomegaly secondary to chronic portal hypertension.
4. Severe chronic bilateral atrophy of the [place] kidneys.
5. LEFT LOWER QUADRANT RENAL TRANSPLANT in place with moderate to severe chronic distention of the left intrarenal collecting system.
6. Moderate distention of the urinary bladder.
7. Moderate amount of fecal material throughout the colon (possibly CONSTIPATION).
8. Severe calcific atherosclerotic plaque in the abdominal aorta.
9. IVC filter in place.
10. Mild colonic diverticulosis.
Seen by GI recommended bowel regimen after correcting hyperkalemia.
01/29:
Would be more aggressive with bowel regimen but awaiting for GI eval now that potassium confirmed to be normal x 2 after abnormal lab yesterday.
Discussed with attending RN.
Plan for biliary stent removal today-n.p.o. for procedure.
01/30:
Status post biliary stent removal yesterday
Appreciated GI input and they are signing off
Enema today
Scheduled bowel regimen
PT eval today
01/31:
cont more aggressive BM
Urinary incontinence, frequency concern for UTI
- Urinalysis negative
Ruled out hyperkalemia.
Repeat BMP shows normal potassium
Headache likely due to the abdominal pain decreased oral intake
-CT head with no acute findings
-Tylenol prn for MARTI.
Type 2 Dm with hyperglycemia
-blood sugar in 400's
-sliding scale
-CHO diet, Lantus 18 units
-insulin 10units with meals
01/28
Dropped blood sugar today, will adjust insulin regimen
Diabetic management consult
01/29
Lantus 22 units every night
NovoLog 10 units before meals
Insulin sliding scale, low resistance
Appreciated MOVERS input
01/30
Continue current diabetic regimen
Anemia of chronic disease
-hgb stable at 12.7, no active bleeding
-ctm
01/30:
Hemoglobin 12.6 today-stable
#hyponatremia
Resolved
#Cirrhosis secondary to chronic hepatitis C status post liver/kidney transplant
- Continue tacrolimus, mycophenolate
#Chronic right hip pain
Chronic back pain
- Continue gabapentin
#CAD status post stents
- Continue metoprolol
- Continue aspirin
#Bilateral lower extremity DVT with IVC filter
#BPH status post TURP
#Former smoker
#Restless leg syndrome
-continue ropinirole
CODE STATUS: Full code
DVT prophylaxis: Heparin
Diet: n.p.o. for procedure. Resume DM diet after procedure.
Disposition: Biliary stent removal, bowel regimen, and pain control
Total time spent on today's encounter was 35 minutes which included time spent in counseling the patient/family regarding diagnosis and treatment plan as listed above, goals of care, and symptom management. Case was discussed with nursing staff,
specialists, and care coordinators/case management. All labs and imaging personally reviewed by me. Remainder the time spent in detailed review of previous records, lab data, imaging, and other medical provider documentation.
Anticipated Discharge: 24 - 48 hours
Subjective/Interval History
-
Date of Service: January 31, 2025
c/o lower abd pain, no n/v. Not enough BM yet
Objective Data
-
Labs:
Laboratory Results
01/31/25
07:31
WBC 5.4
Hgb 11.8 L
Hct 33.8 L
Plt Count 109 L D
Sodium 132 L
Potassium 5.0
Chloride 103
Carbon Dioxide 31 H
BUN 28 H
Creatinine 1.4 H
Glucose 312 H
Calcium 8.3 L
Total Bilirubin 1.1
AST 18
ALT 15
Alkaline Phosphatase 125
Vital Signs:
Vital Signs
Temp Pulse Resp BP Pulse Ox
97.8 F 79 17 162/88 98
01/31/25 08:00 01/31/25 08:00 01/31/25 08:00 01/31/25 08:00 01/31/25 08:00
I&O
01/30/25 01/31/25 02/01/25
06:59 06:59 06:59
Intake Total 600 / 600
Output Total 500 / 500
Balance -500 / -500 600 / 600
--- NOTE | 2025-01-31 11:11 | CM ---
Spoke with patient in room .
He said that he will drive himself [place].
IMM reviewed signed on chart.
Offered VN she declined need .
PLAN Home needs
[2025-01-31 11:32] LABS: Glucose - Point of Care 78 mg/dl (70-99)
[2025-01-31] MEDS: MILK OF MAGNESIA 30 ML PO (11:46)
[2025-01-31] MEDS: NOVOLOG FLEXPEN-LOW RESISTANCE SC ×2 (12:33→17:52)
[2025-01-31 15:50] VITALS: BP 127/71
[2025-01-31 17:15] LABS: Glucose - Point of Care 135 mg/dl (70-99)
[2025-01-31] MEDS: MYFORTIC DELAYED REL. 180 MG PO (19:58)
[2025-01-31 21:56] LABS: Glucose - Point of Care 276 mg/dl (70-99)
[2025-01-31] MEDS: REQUIP 0.5 MG PO (22:00)
[2025-01-31] MEDS: LANTUS 0.18 UNITS SC (22:01)
[2025-01-31 23:29] VITALS: BP 137/73
[2025-02-01] MEDS: FLUSH (NSS) 2 FLUSH IV ×2 (00:04→18:06)
[2025-02-01] MEDS: DILAUDID 0.5 MG IV ×6 (00:05→22:20)
[2025-02-01 07:00] VITALS: BP 127/69
[2025-02-01 07:44] LABS: Glucose - Point of Care 269 mg/dl (70-99)
[2025-02-01] MEDS: NOVOLOG FLEXPEN-LOW RESISTANCE 5 UNITS SC (07:59)
[2025-02-01] MEDS: TOPROL XL 12.5 MG PO (08:01)
[2025-02-01] MEDS: MIRALAX 17 GRAMS PO (08:01)
[2025-02-01] MEDS: PROGRAF 3 MG PO ×2 (08:01→20:49)
[2025-02-01] MEDS: MAGNESIUM OXIDE 400 MG PO (08:03)
[2025-02-01] MEDS: NEURONTIN 300 MG PO ×2 (08:03→20:47)
[2025-02-01] MEDS: PROTONIX 40 MG PO ×2 (08:03→20:47)
[2025-02-01] MEDS: ASPIR LOW (ENTERIC COATED) 81 MG PO (08:03)
[2025-02-01] MEDS: MYFORTIC DELAYED REL. PO (08:04)
[2025-02-01] MEDS: HEPARIN SC ×2 (08:04→20:47)
[2025-02-01] MEDS: SENOKOT-S PO ×2 (08:04→20:46)
[2025-02-01] MEDS: NOVOLOG FLEXPEN 10 UNITS SC ×3 (08:49→17:33)
--- NOTE | 2025-02-01 10:18 | W.PN.HOSP.TC ---
Today's Communication/Plan
-
Bowel regimen
Assessment / Plan
Assessment / Plan
Physical exam:
General: Chronically ill
HEENT: Normocephalic, Atraumatic and Moist Mucous Membranes
Respiratory: Clear to Auscultation; Negative Wheezes, Rales or Rhonchi
Cardiac: Regular Rhythm and S1/S2
GI: Soft, tender and Nondistended
Musculoskeletal: No Clubbing, No Cyanosis and No Edema
Neuro: Awake, Alert and Oriented, no neuro deficits
Psych: Calm
A/P:
Impression:
65-year-old male past medical history of liver cirrhosis secondary to chronic hepatitis C status post liver transplant/kidney transplant, anemia of chronic disease, diabetes, chronic right hip pain, chronic back pain, CAD status post stents,
bilateral lower extremity DVT with IVC filter, BPH status post TURP, prior history of C. difficile, prior drug use, former smoker, presenting with lower abdominal pain that got particularly bad within the past few days. �He states that he has had
this pain during the recent hospitalization which did not improve with antibiotics and ERCP x 2. �He also does have urinary burning and frequent urination. �He had an episode of confusion while in the store.
He is having 1 episode of diarrhea in the morning every day occasionally with mucus.
Patient was recently admitted from 01/09 to 01/20 for abdominal pain and diarrhea. �He was found to have acute proctocolitis/diverticulitis treated with antibiotics. �He later developed transaminitis and was taken for ERCP x 2. �First ERCP was
notable for biliary sphincterotomy and pancreatic stent placed.. �He had a second ERCP due to transaminitis with sphincterotomy and placement of common hepatic duct stent.
Vital signs show blood pressure 170/96. Labs show blood sugar 568 but he did not take his insulin today which he did not eat today. �Sodium 125. �Potassium 5.3.
CT abdomen pelvis shows stent in the bile duct extending into the duodenum, only acute findings are moderate distention of the urinary bladder, moderate fecal material throughout the colon. �CT head shows no acute abnormality. Unclear etiology of
abdominal pain. �Labs not consistent with recurrent biliary obstruction or acute pancreatitis from recent ERCP. �patient recieved Dilaudid for pain. Hyperglycemia not consistent with DKA as no anion gap .GI consulted. �1 L IV fluids given.
�Headache likely secondary to stress and decreased p.o. intake today. Continue Lantus but reduce from 35 to 18 units as patient not eating currently.
Patient noted to have hyperkalemia, repeat lab
Assessment/plan:
Abdominal pain unclear etiology
Recent diverticulitis
Recent ERCP with Removal of sludge from the biliary tree. Plastic stent placed in the common hepatic duct.
-T bili 1.4
-GI consult.
-obtain bladder scan
-CT abdomen pelvis with . RIGHT UPPER QUADRANT LIVER TRANSPLANT in place.
2. Plastic stent in the bile duct extending into the duodenum.
3. Moderate splenomegaly secondary to chronic portal hypertension.
4. Severe chronic bilateral atrophy of the [place] kidneys.
5. LEFT LOWER QUADRANT RENAL TRANSPLANT in place with moderate to severe chronic distention of the left intrarenal collecting system.
6. Moderate distention of the urinary bladder.
7. Moderate amount of fecal material throughout the colon (possibly CONSTIPATION).
8. Severe calcific atherosclerotic plaque in the abdominal aorta.
9. IVC filter in place.
10. Mild colonic diverticulosis.
Seen by GI recommended bowel regimen after correcting hyperkalemia.
01/29:
Would be more aggressive with bowel regimen but awaiting for GI eval now that potassium confirmed to be normal x 2 after abnormal lab yesterday.
Discussed with attending RN.
Plan for biliary stent removal today-n.p.o. for procedure.
01/30:
Status post biliary stent removal yesterday
Appreciated GI input and they are signing off
Enema today
Scheduled bowel regimen
PT eval today
01/31:
cont more aggressive BM
02/01:
Continue bowel regimen and if no more bowel then we will need to enema
Urinary incontinence, frequency concern for UTI
- Urinalysis negative
Ruled out hyperkalemia.
Repeat BMP shows normal potassium
Headache likely due to the abdominal pain decreased oral intake
-CT head with no acute findings
-Tylenol prn for MARTI.
Type 2 Dm with hyperglycemia
-blood sugar in 400's
-sliding scale
-CHO diet, Lantus 18 units
-insulin 10units with meals
01/28
Dropped blood sugar today, will adjust insulin regimen
Diabetic management consult
01/29
Lantus 22 units every night
NovoLog 10 units before meals
Insulin sliding scale, low resistance
Appreciated ACUPUNCTURIST input
01/30
Continue current diabetic regimen
Anemia of chronic disease
-hgb stable at 12.7, no active bleeding
-ctm
01/31:
Hemoglobin 11.8-stable
#hyponatremia
Resolved
#Cirrhosis secondary to chronic hepatitis C status post liver/kidney transplant
- Continue tacrolimus, mycophenolate
#Chronic right hip pain
Chronic back pain
- Continue gabapentin
#CAD status post stents
- Continue metoprolol
- Continue aspirin
#Bilateral lower extremity DVT with IVC filter
#BPH status post TURP
#Former smoker
#Restless leg syndrome
-continue ropinirole
CODE STATUS: Full code
DVT prophylaxis: Heparin
Diet: n.p.o. for procedure. Resume DM diet after procedure.
Disposition: Biliary stent removal, bowel regimen, and pain control
Total time spent on today's encounter was 35 minutes which included time spent in counseling the patient/family regarding diagnosis and treatment plan as listed above, goals of care, and symptom management. Case was discussed with nursing staff,
specialists, and care coordinators/case management. All labs and imaging personally reviewed by me. Remainder the time spent in detailed review of previous records, lab data, imaging, and other medical provider documentation.
Anticipated Discharge: 24 - 48 hours
Subjective/Interval History
-
Date of Service: February 01, 2025
Patient had 2 bowel movement last night although he says it is mostly gas but RN reports that he did have bowel movements. Still complains of lower abdominal pain. Afebrile
Objective Data
-
Vital Signs:
Vital Signs
Temp Pulse Resp BP Pulse Ox
98.4 F 79 14 127/69 99
02/01/25 07:00 02/01/25 08:01 02/01/25 07:00 02/01/25 08:01 02/01/25 07:00
I&O
01/31/25 02/01/25 02/02/25
06:59 06:59 06:59
Intake Total 600 / 600 1560 / 1560
Output Total 1825 / 1825
Balance 600 / 600 -265 / -265
[2025-02-01 12:58] LABS: Glucose - Point of Care 94 mg/dl (70-99)
[2025-02-01] MEDS: NOVOLOG FLEXPEN-LOW RESISTANCE SC (12:59)
[2025-02-01 14:57] VITALS: BP 125/63
[2025-02-01 17:08] LABS: Glucose - Point of Care 160 mg/dl (70-99)
[2025-02-01] MEDS: NOVOLOG FLEXPEN-LOW RESISTANCE 1 UNITS SC (17:33)
[2025-02-01] MEDS: MYFORTIC DELAYED REL. 180 MG PO (20:47)
[2025-02-01 22:25] LABS: Glucose - Point of Care 239 mg/dl (70-99)
[2025-02-01] MEDS: REQUIP 0.5 MG PO (22:32)
[2025-02-01] MEDS: LANTUS 0.18 UNITS SC (22:59)
[2025-02-01 23:43] VITALS: BP 138/76
[2025-02-02] MEDS: DILAUDID 0.5 MG IV ×6 (02:23→22:33)
[2025-02-02] MEDS: ZOFRAN 4 MG IV (05:32)
[2025-02-02 07:50] VITALS: BP 128/76
[2025-02-02] MEDS: NEURONTIN 300 MG PO ×2 (08:43→22:12)
[2025-02-02] MEDS: TOPROL XL 12.5 MG PO (08:43)
[2025-02-02] MEDS: MAGNESIUM OXIDE 400 MG PO (08:43)
[2025-02-02] MEDS: PROTONIX 40 MG PO ×2 (08:43→22:12)
[2025-02-02] MEDS: ASPIR LOW (ENTERIC COATED) 81 MG PO (08:44)
[2025-02-02] MEDS: HEPARIN SC ×3 (08:44→22:26)
[2025-02-02] MEDS: PROGRAF 3 MG PO ×2 (08:44→22:12)
[2025-02-02] MEDS: SENOKOT-S PO ×3 (08:44→22:23)
[2025-02-02] MEDS: MIRALAX PO (08:44)
[2025-02-02 08:47] LABS: Glucose - Point of Care 247 mg/dl (70-99)
[2025-02-02] MEDS: MYFORTIC DELAYED REL. PO (08:47)
[2025-02-02] MEDS: NOVOLOG FLEXPEN-LOW RESISTANCE 3 UNITS SC (08:47)
[2025-02-02] MEDS: NOVOLOG FLEXPEN 10 UNITS SC ×3 (08:47→18:19)
--- NOTE | 2025-02-02 10:49 | W.PN.HOSP.TC ---
Today's Communication/Plan
-
Monitor abdominal symptoms and stool output. Discharge plan
Assessment / Plan
Assessment / Plan
Physical exam:
General: Chronically ill
HEENT: Normocephalic, Atraumatic and Moist Mucous Membranes
Respiratory: Clear to Auscultation; Negative Wheezes, Rales or Rhonchi
Cardiac: Regular Rhythm and S1/S2
GI: Soft, tender and Nondistended
Musculoskeletal: No Clubbing, No Cyanosis and No Edema
Neuro: Awake, Alert and Oriented, no neuro deficits
Psych: Calm
A/P:
Impression:
65-year-old male past medical history of liver cirrhosis secondary to chronic hepatitis C status post liver transplant/kidney transplant, anemia of chronic disease, diabetes, chronic right hip pain, chronic back pain, CAD status post stents,
bilateral lower extremity DVT with IVC filter, BPH status post TURP, prior history of C. difficile, prior drug use, former smoker, presenting with lower abdominal pain that got particularly bad within the past few days. �He states that he has had
this pain during the recent hospitalization which did not improve with antibiotics and ERCP x 2. �He also does have urinary burning and frequent urination. �He had an episode of confusion while in the store.
He is having 1 episode of diarrhea in the morning every day occasionally with mucus.
Patient was recently admitted from 01/09 to 01/20 for abdominal pain and diarrhea. �He was found to have acute proctocolitis/diverticulitis treated with antibiotics. �He later developed transaminitis and was taken for ERCP x 2. �First ERCP was
notable for biliary sphincterotomy and pancreatic stent placed.. �He had a second ERCP due to transaminitis with sphincterotomy and placement of common hepatic duct stent.
Vital signs show blood pressure 170/96. Labs show blood sugar 568 but he did not take his insulin today which he did not eat today. �Sodium 125. �Potassium 5.3.
CT abdomen pelvis shows stent in the bile duct extending into the duodenum, only acute findings are moderate distention of the urinary bladder, moderate fecal material throughout the colon. �CT head shows no acute abnormality. Unclear etiology of
abdominal pain. �Labs not consistent with recurrent biliary obstruction or acute pancreatitis from recent ERCP. �patient recieved Dilaudid for pain. Hyperglycemia not consistent with DKA as no anion gap .GI consulted. �1 L IV fluids given.
�Headache likely secondary to stress and decreased p.o. intake today. Continue Lantus but reduce from 35 to 18 units as patient not eating currently.
Patient noted to have hyperkalemia, repeat lab
Assessment/plan:
Abdominal pain unclear etiology
Recent diverticulitis
Recent ERCP with Removal of sludge from the biliary tree. Plastic stent placed in the common hepatic duct.
-T bili 1.4
-GI consult.
-obtain bladder scan
-CT abdomen pelvis with . RIGHT UPPER QUADRANT LIVER TRANSPLANT in place.
2. Plastic stent in the bile duct extending into the duodenum.
3. Moderate splenomegaly secondary to chronic portal hypertension.
4. Severe chronic bilateral atrophy of the [place] kidneys.
5. LEFT LOWER QUADRANT RENAL TRANSPLANT in place with moderate to severe chronic distention of the left intrarenal collecting system.
6. Moderate distention of the urinary bladder.
7. Moderate amount of fecal material throughout the colon (possibly CONSTIPATION).
8. Severe calcific atherosclerotic plaque in the abdominal aorta.
9. IVC filter in place.
10. Mild colonic diverticulosis.
Seen by GI recommended bowel regimen after correcting hyperkalemia.
01/29:
Would be more aggressive with bowel regimen but awaiting for GI eval now that potassium confirmed to be normal x 2 after abnormal lab yesterday.
Discussed with attending RN.
Plan for biliary stent removal today-n.p.o. for procedure.
01/30:
Status post biliary stent removal yesterday
Appreciated GI input and they are signing off
Enema today
Scheduled bowel regimen
PT eval today
01/31:
cont more aggressive BM
02/01:
Continue bowel regimen and if no more bowel then we will need to enema
02/02:
He wants to hold on bowel regimen
Cautious because he could have also overflow diarrhea so we will need to reevaluate over the next 24 hours
Recheck BMP in a.m.
We discussed about discharge planning and he is amenable for discharge over the next 24 to 48 hours if improving
Urinary incontinence, frequency concern for UTI
- Urinalysis negative
Ruled out hyperkalemia.
Repeat BMP shows normal potassium
Headache likely due to the abdominal pain decreased oral intake
-CT head with no acute findings
-Tylenol prn for MARTI.
Type 2 Dm with hyperglycemia
-blood sugar in 400's
-sliding scale
-CHO diet, Lantus 18 units
-insulin 10units with meals
01/28
Dropped blood sugar today, will adjust insulin regimen
Diabetic management consult
01/29
Lantus 22 units every night
NovoLog 10 units before meals
Insulin sliding scale, low resistance
Appreciated RUBBER MIXER input
01/30
Continue current diabetic regimen
02/02:
Continue current diabetic regimen
Will have RUBBER MIXER diabetes to recheck on him tomorrow
Anemia of chronic disease
-hgb stable at 12.7, no active bleeding
-ctm
01/31:
Hemoglobin 11.8-stable
#hyponatremia
Resolved
#Cirrhosis secondary to chronic hepatitis C status post liver/kidney transplant
- Continue tacrolimus, mycophenolate
#Chronic right hip pain
Chronic back pain
- Continue gabapentin
#CAD status post stents
- Continue metoprolol
- Continue aspirin
#Bilateral lower extremity DVT with IVC filter
#BPH status post TURP
#Former smoker
#Restless leg syndrome
-continue ropinirole
CODE STATUS: Full code
DVT prophylaxis: Heparin
Diet: n.p.o. for procedure. Resume DM diet after procedure.
Disposition: Biliary stent removal, bowel regimen, and pain control
Total time spent on today's encounter was 35 minutes which included time spent in counseling the patient/family regarding diagnosis and treatment plan as listed above, goals of care, and symptom management. Case was discussed with nursing staff,
specialists, and care coordinators/case management. All labs and imaging personally reviewed by me. Remainder the time spent in detailed review of previous records, lab data, imaging, and other medical provider documentation.
Anticipated Discharge: Within 24 hours
Subjective/Interval History
-
Date of Service: February 02, 2025
Patient complains today that he is having too many bowel movements overnight and still having some lower abdominal pain. No nausea or vomiting. Afebrile
Objective Data
-
Vital Signs:
Vital Signs
Temp Pulse Resp BP Pulse Ox
97.8 F 80 16 128/76 98
02/02/25 07:50 02/02/25 07:50 02/02/25 07:50 02/02/25 07:50 02/02/25 07:50
I&O
02/01/25 02/02/25 02/03/25
06:59 06:59 06:59
Intake Total 1560 / 1560 1000 / 1000
Output Total 1825 / 1825
Balance -265 / -265 1000 / 1000
[2025-02-02 11:52] LABS: Glucose - Point of Care 407 mg/dl (70-99)
[2025-02-02 12:33] LABS: Glucose 256 mg/dl (70-99)
[2025-02-02] MEDS: NOVOLOG FLEXPEN-LOW RESISTANCE 5 UNITS SC (13:28)
--- NOTE | 2025-02-02 15:04 | PTCARENOTE ---
Patient RRHI for lunchtime sugar check, stat venous glucose ordered, result 256. made aware, insulin administered per sliding scale protocol.
[2025-02-02 15:20] VITALS: BP 100/60
[2025-02-02 17:16] LABS: Glucose - Point of Care 125 mg/dl (70-99)
[2025-02-02] MEDS: NOVOLOG FLEXPEN-LOW RESISTANCE SC (18:19)
[2025-02-02 19:00] VITALS: BP 116/66
[2025-02-02 21:36] LABS: Glucose - Point of Care 167 mg/dl (70-99)
[2025-02-02] MEDS: MYFORTIC DELAYED REL. 180 MG PO (22:11)
[2025-02-02] MEDS: REQUIP 0.5 MG PO (22:12)
[2025-02-02] MEDS: LANTUS 0.18 UNITS SC (22:13)
[2025-02-02 23:00] VITALS: BP 137/76
[2025-02-03] MEDS: DILAUDID 0.5 MG IV ×4 (02:48→19:30)
--- NOTE | 2025-02-03 07:20 | PN.DE.MGMTRT ---
Insulin Management
- -
02/03/2025: Diabetes Management Follow up
65 year old male admitted 01/27 with c/o abdominal pain and headache. PMH: Liver cirrhosis secondary to chronic hepatitis C status post liver transplant/kidney transplant, anemia of chronic disease, diabetes, chronic right hip pain, chronic back
pain, CAD status post stents, bilateral lower extremity DVT with IVC filter, BPH status post TURP, former smoker.
Patient was recently admitted from 01/09 to 01/20 for abdominal pain and diarrhea, was treated for acute proctocolitis/diverticulitis. He is well known to the Diabetes team from his recent hospital visit.
Patient was previously seeing Dr. Jayro Rosado but he doesn't like him so is looking for a new endo. He has been asked not to return to his primary doctor so is looking for a new primary doctor as he previously stated, which he has not done since last
admission. Prior to admission was taking 16 units NovoLog AC with Lantus 35 units @ HS, there is concern of patient not taking his insulin at home, considering his Glucose was 513 on admission.
Recent A1C was 10.5% on 01/10. Cr 1.2, eGFR >60.
Patient is awake, alert and oriented, offers no complaints, resting in bed, able to discuss diabetes care.
POD #3 s/p removal of biliary stent 01/29. Worsening kidney function, Cr 1.5, eGFR 51.99 today
02/02 premeal 125 to 256 3 HS glucose. States he has not had any snacks at bedtime since Monday. Glucose remains elevated, HS 167, received Lantus 18 units, fasting 218V, 208 POC today. Will increase Lantus to 22 units @ HS. Cont NovoLog 10 units
with low corrective insulin AC
Discussed with Nurse. Cont to follow.
Reinforced with patient the process for obtaining an insulin pump and to follow up with his PCP and endocrine.
Diabetes History
- -
Type of Diabetes: 2 requiring insulin
Pre-Admission Diabetes Regimen
Insulin Pump Settings
IP Diabetes Regimen
1002/02/25 02/02/25
08:46 11:51 12:05
Glucose 256 H
POC Glucose 247 H 407 H
02/02/25 02/02/25
17:14 21:34
Glucose
POC Glucose 125 H 167 H
Meal type: Dinner
Meal type: Lunch
Meal type: Breakfast
Amount consumed: 100%
Amount consumed: 100%
Amount consumed: 100%
Patient Education
[2025-02-03 07:45] LABS: Hematocrit 33.0 % (39.0-52.0); Hemoglobin 11.7 g/dL (13.0-18.0); Mean Corp Hgb Conc. 35.5 g/dL (33.0-37.0); Mean Corpuscular Volume 86.8 fL (80.0-94.0); Platelet Count 127 10^3/uL (130-400); Red Cell Dist. Width 14.8 % (11.5-14.5)
[2025-02-03 07:57] VITALS: BP 123/67
[2025-02-03 08:23] LABS: Blood Urea Nitrogen 29 mg/dl (9-20); Calcium 8.5 mg/dl (8.4-10.2); Carbon Dioxide 27 mmol/L (22-30); Chloride 107 mmol/L (98-107); Estimated Creatinine Clearance 52 ml/min; Glucose 218 mg/dl (70-99); Potassium 4.3 mmol/L (3.5-5.1); Sodium 138 mmol/L (135-145); eGFR 51.99
--- NOTE | 2025-02-03 08:31 | W.PN.HOSP.TC ---
Addendum entered and electronically signed by Charlene Beltran MD 02/03/25 11:49:
Attending�addendum:
I saw and evaluated the patient. I reviewed the resident�s note and agree with findings and plan as documented in the resident�s note.��patient seen and examined at bedside, patient continues to complain of lower abdominal pain. Worsening kidney
function today.
Will give IV fluid.
Physical�exam:
GENERAL : Patient is awake, alert, oriented x3
HEENT: Nonicteric sclerae, PERRLA, EOMI. Oropharynx clear. Moist mucous membranes. Conjunctivae appear well perfused.
CHEST: Chest wall is nontender.
HEART: Regular rate and rhythm without murmurs.
LUNGS: Clear to auscultation bilaterally.
ABDOMEN: Soft, positive bowel sounds, nontender, no organomegaly.
RECTAL: Deferred.
MUSCLES/EXTREMITIES: No abnormal range of motion, no swelling.SKIN: No rash, no excessive bruising, petechiae, or purpura.
NEUROLOGIC: Cranial nerves II-XII intact without motor/sensory deficit.
�
Assessment/plan:
Abdominal pain.
Appreciate GI input.
Status post biliary stent removal.
GI signed off
Wean off Dilaudid.
Possible discharge in next 24 hours
ROXY
Start IV fluid and assess tomorrow
Type 2 diabetes.
Blood sugar better controlled
Status post liver/kidney transplant.
Continue tacrolimus/mycophenolate
CODE STATUS: Full code
DVT prophylaxis: Heparin
Diet: DM diet
Disposition: Fluid, possible discharge tomorrow once creatinine improves.
�
Total time spent on today�s encounter was 51 minutes which included time spent in counseling the patient/family regarding diagnosis and treatment plan as listed above, goals of care, and symptom management. Case was discussed with nursing staff,
specialists, and care coordinators/case management. All labs and imaging personally reviewed by me. Remainder the time spent in detailed review of previous records, lab data, imaging, and other medical provider documentation.
Original Note:
Today's Communication/Plan
-
Decrease frequency of pain med administration. Gentle hydration in the setting of increased Cr. Continue to monitor bowel movements.
Assessment / Plan
Assessment / Plan
Cherie Crawford is a 65M w/ PMHx of liver cirrhosis 2/2 chronic hepatitis C s/p liver and kidney transplants, anemia of chronic disease, T2DM, chronic right hip and back pain, CAD s/p stents, bilateral LE DVT w/ IVC filter, BPH s/p TURP, hx C/Diff,
who presented with abdominal pain in the setting of a recent hospitalization for the same, during which he was treated w/ abx for proctocolitis/diverticulitis and underwent ERCP x 2 with hepatic duct and pancreatic ductal stenting. Abdominal pain
was associated with diarrhea.
ED COURSE
On presentation, BP 170/96, BS 568, Na 125, K 5.3.
CT Abd/Pelv: stent in the bile duct extending into the duodenum, moderate distention of the urinary bladder, moderate fecal material throughout the colon
CT Head: no acute abnormality
1. Abdominal Pain of Unclear Etiology
- T. Bili on admission 1.4; now normalized.
- GI consulted, felt that the acute issues could be mitigated by bowel regimen, signed off for now
- Bowel regimen was started, and increased. Held yesterday 2/2 diarrhea; unclear if iatrogenic or 2/2 overflow.
- ERCP on last admission with removal of sludge and plastic stent placement in common hepatic duct.
- S/p biliary stent removal this admission 01/29
- Patient continues to want to hold off of bowel regimen
- Decrease pain med frequency in setting of possible constipation
2. Hyperkalemia (resolved)
- K 5.3 on admission, normalized.
- K 4.3 today.
- Daily BMP.
3. Headache
- Likely in the setting of stress, abdominal pain, decreased oral intake
- Patient notes chronicity, unable to take Tylenol 2/2 liver transplant
- CT Head/Brain unremarkable.
4. Type 2 DM with hyperglycemia on admission
- BS 560 on admission
- On sliding scale
- CHO diet, Lantus 18 units
- Aspart 10 units with meals
- Await DM PATTERN DRAFTER reccs
5. Anemia of Chronic Disease
- Stable (11.7), continue to monitor.
6. Hyponatremia (Resolved)
- 138 today, continue to monitor.
7. 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
- Continue tacrolimus, mycophenolate
- Cr trending up, start gentle hydration
8. Chronic right hip pain
9. Chronic back pain
- Continue gabapentin
10. CAD status post stents
- Continue metoprolol
- Continue aspirin
11. Bilateral lower extremity DVT with IVC filter
12. BPH status post TURP
13. Former smoker
14. Severe calcific atherosclerotic plaque in abdominal aorta
15. Restless leg syndrome
- continue ropinirole
CODE STATUS: Full code
DVT prophylaxis: Heparin
Diet: Diabetic Diet
Anticipated Discharge: Within 24 hours
Subjective/Interval History
-
Date of Service: February 03, 2025
Patient seen and examined while in bed. Patient states he still has pain. In the lower abdomen, described as sharp and constant. Has been constant since his last admission. Notes that he continues to have diarrhea from yesterday despite a pause in
bowel regimen. States that he does not want bowel regimen this morning either. Tolerating solid PO, no nausea or vomiting.
Objective Data
-
Labs:
Laboratory Results
02/03/25
07:13
WBC 5.9
Hgb 11.7 L
Hct 33.0 L
Plt Count 127 L
Sodium 138
Potassium 4.3
Chloride 107
Carbon Dioxide 27
BUN 29 H
Creatinine 1.5 H
Glucose 218 H
Calcium 8.5
Vital Signs:
Vital Signs
Temp Pulse Resp BP Pulse Ox
97.9 F 70 18 123/67 98
02/03/25 07:57 02/03/25 07:57 02/03/25 07:57 02/03/25 07:57 02/03/25 07:57
I&O
02/02/25 02/03/25 02/04/25
06:59 06:59 06:59
Intake Total 1000 / 1000 900 / 900
Balance 1000 / 1000 900 / 900
Review of Systems
-
History Source: Patient
All other systems: Reviewed and negative
Physical Exam
-
General: No Apparent Distress
HEENT: Normocephalic, Atraumatic and Anicteric
Respiratory: Clear to Auscultation
Cardiac: Regular Rhythm and Murmur (FALGUNI, c/w )
GI: Soft, Nondistended, Normal Bowel Sounds and Tender (diffusely)
Skin: Warm
Neuro: Awake, Alert and Oriented
Psych: Calm
Data Reviewed
-
Labs: Labs Reviewed by me
[2025-02-03] MEDS: MIRALAX PO (08:38)
[2025-02-03] MEDS: HEPARIN SC ×2 (08:38→20:40)
[2025-02-03 08:39] LABS: Glucose - Point of Care 208 mg/dl (70-99)
[2025-02-03] MEDS: SENOKOT-S PO ×2 (08:39→20:40)
[2025-02-03] MEDS: NOVOLOG FLEXPEN-LOW RESISTANCE 3 UNITS SC (08:39)
[2025-02-03] MEDS: MAGNESIUM OXIDE 400 MG PO (08:40)
[2025-02-03] MEDS: TOPROL XL 12.5 MG PO (08:40)
[2025-02-03] MEDS: NOVOLOG FLEXPEN 10 UNITS SC ×3 (08:40→17:48)
[2025-02-03] MEDS: NEURONTIN 300 MG PO ×2 (08:40→20:48)
[2025-02-03] MEDS: ASPIR LOW (ENTERIC COATED) 81 MG PO (08:40)
[2025-02-03] MEDS: PROTONIX 40 MG PO ×2 (08:40→20:48)
[2025-02-03] MEDS: PROGRAF 3 MG PO ×2 (08:41→20:47)
[2025-02-03] MEDS: MYFORTIC DELAYED REL. PO (08:44)
[2025-02-03] MEDS: NSS 1000 IV (11:01)
[2025-02-03 12:08] LABS: Glucose - Point of Care 189 mg/dl (70-99)
[2025-02-03] MEDS: NOVOLOG FLEXPEN-LOW RESISTANCE SC ×3 (12:41→17:47)
[2025-02-03 13:35] LABS: Glucose - Point of Care 122 mg/dl (70-99)
[2025-02-03 15:14] VITALS: BP 97/57; PULSE 72
[2025-02-03 15:40] VITALS: BP 112/58
[2025-02-03 16:46] LABS: Glucose - Point of Care 101 mg/dl (70-99)
[2025-02-03] MEDS: MYFORTIC DELAYED REL. 180 MG PO (20:49)
[2025-02-03 21:41] LABS: Glucose - Point of Care 226 mg/dl (70-99)
[2025-02-03] MEDS: LANTUS 0.22 UNITS SC (21:43)
[2025-02-03] MEDS: REQUIP 0.5 MG PO (21:46)
[2025-02-04] MEDS: DILAUDID 0.5 MG IV ×2 (01:37→07:59)
[2025-02-04] MEDS: NSS IV (01:40)
--- NOTE | 2025-02-04 01:42 | PTCARENOTE ---
pP refuses his IVF as he feels it is a hazer to his safety. Pt sates he almost fell. Pt was informed he can call prior going to the bathroom or use the urinal. Pt refused.
[2025-02-04] MEDS: VISBIOME 1 CAP PO (06:08)
[2025-02-04 07:26] LABS: Hematocrit 31.0 % (39.0-52.0); Hemoglobin 11.1 g/dL (13.0-18.0); Mean Corp Hgb Conc. 35.8 g/dL (33.0-37.0); Mean Corpuscular Volume 84.5 fL (80.0-94.0); Platelet Count 120 10^3/uL (130-400); Red Cell Dist. Width 14.7 % (11.5-14.5)
[2025-02-04 07:40] LABS: Blood Urea Nitrogen 26 mg/dl (9-20); Calcium 8.4 mg/dl (8.4-10.2); Carbon Dioxide 26 mmol/L (22-30); Chloride 108 mmol/L (98-107); Estimated Creatinine Clearance 60 ml/min; Glucose 225 mg/dl (70-99); Potassium 4.1 mmol/L (3.5-5.1); Sodium 137 mmol/L (135-145); eGFR > 60.00
[2025-02-04 07:50] VITALS: BP 118/73
[2025-02-04 07:50] LABS: Glucose - Point of Care 215 mg/dl (70-99)
--- NOTE | 2025-02-04 08:14 | W.PN.HOSP.TC ---
Addendum entered and electronically signed by Charlene Beltran MD 02/04/25 10:59:
Attending�addendum:
I saw and evaluated the patient. I reviewed the resident�s note and agree with findings and plan as documented in the resident�s note.��patient seen and examined at bedside, patient continues to complain of lower abdominal pain. Improved kidney
function after IV fluid
Patient ready for discharge but refused to go home today, will discontinue Dilaudid, complaining of diarrhea, continue Imodium and Bentyl
Physical�exam:
GENERAL : Patient is awake, alert, oriented x3
HEENT: Nonicteric sclerae, PERRLA, EOMI. Oropharynx clear. Moist mucous membranes. Conjunctivae appear well perfused.
CHEST: Chest wall is nontender.
HEART: Regular rate and rhythm without murmurs.
LUNGS: Clear to auscultation bilaterally.
ABDOMEN: Soft, positive bowel sounds, nontender, no organomegaly.
RECTAL: Deferred.
MUSCLES/EXTREMITIES: No abnormal range of motion, no swelling.SKIN: No rash, no excessive bruising, petechiae, or purpura.
NEUROLOGIC: Cranial nerves II-XII intact without motor/sensory deficit.
�
Assessment/plan:
Abdominal pain.
Appreciate GI input.
Status post biliary stent removal.
GI signed off
Wean off Dilaudid.
Possible discharge in next 24 hours
02/04
Patient ready for discharge but refused to go home today, will discontinue Dilaudid, complaining of diarrhea, continue Imodium and Bentyl
ROYX
Resolved
Type 2 diabetes.
Blood sugar better controlled
Status post liver/kidney transplant.
Continue tacrolimus/mycophenolate
CODE STATUS: Full code
DVT prophylaxis: Heparin
Diet: DM diet
Disposition: Patient ready for discharge but refused to go home today, will discontinue Dilaudid, complaining of diarrhea, continue Imodium and Bentyl
�
Total time spent on today�s encounter was 51 minutes which included time spent in counseling the patient/family regarding diagnosis and treatment plan as listed above, goals of care, and symptom management. Case was discussed with nursing staff,
specialists, and care coordinators/case management. All labs and imaging personally reviewed by me. Remainder the time spent in detailed review of previous records, lab data, imaging, and other medical provider documentation.
Original Note:
Today's Communication/Plan
-
D/c Dilaudid, continue Bentyl. Kidney function improved. Discharge tomorrow.
Assessment / Plan
Assessment / Plan
Cherie Crawford is a 65M w/ PMHx of liver cirrhosis 2/2 chronic hepatitis C s/p liver and kidney transplants, anemia of chronic disease, T2DM, chronic right hip and back pain, CAD s/p stents, bilateral LE DVT w/ IVC filter, BPH s/p TURP, hx C/Diff,
who presented with abdominal pain in the setting of a recent hospitalization for the same, during which he was treated w/ abx for proctocolitis/diverticulitis and underwent ERCP x 2 with hepatic duct and pancreatic ductal stenting. Abdominal pain
was associated with diarrhea.
ED COURSE
On presentation, BP 170/96, BS 568, Na 125, K 5.3.
CT Abd/Pelv: stent in the bile duct extending into the duodenum, moderate distention of the urinary bladder, moderate fecal material throughout the colon
CT Head: no acute abnormality
1. Abdominal Pain of Unclear Etiology
- T. Bili on admission 1.4; now normalized.
- GI consulted, felt that the acute issues could be mitigated by bowel regimen, signed off for now
- Bowel regimen was started, and increased. Held yesterday 2/2 diarrhea; unclear if iatrogenic or 2/2 overflow.
- ERCP on last admission with removal of sludge and plastic stent placement in common hepatic duct.
- S/p biliary stent removal this admission 01/29
- Patient continues to want to hold off of bowel regimen
- Continue Bentyl; PRN opioids d/c
- Patient should establish care with outpatient pain management
2. Hyperkalemia (resolved)
- K 5.3 on admission, normalized.
- K 4.1 today.
- Daily BMP.
3. Headache
- Likely in the setting of stress, abdominal pain, decreased oral intake
- Patient notes chronicity, unable to take Tylenol 2/2 liver transplant
- CT Head/Brain unremarkable.
4. Type 2 DM with hyperglycemia on admission
- BS 560 on admission
- On sliding scale
- CHO diet, Lantus 18 units
- Aspart 10 units with meals
- Await DM GLOBAL COMPENSATION ANALYST reccs
5. Anemia of Chronic Disease
- Stable (11.7), continue to monitor.
6. Hyponatremia (Resolved)
- 138 today, continue to monitor.
7. 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
- Continue tacrolimus, mycophenolate
- Mildly elevated Cr yesterday, tx gentle hydration, downtrending, continue NS @ 75ml/hr
8. Chronic right hip pain
9. Chronic back pain
- Continue gabapentin
10. CAD status post stents
- Continue metoprolol
- Continue aspirin
11. Bilateral lower extremity DVT with IVC filter
12. BPH status post TURP
13. Former smoker
14. Severe calcific atherosclerotic plaque in abdominal aorta
15. Restless leg syndrome
- continue ropinirole
CODE STATUS: Full code
DVT prophylaxis: Heparin
Diet: Diabetic Diet
Anticipated Discharge: Within 24 hours
Subjective/Interval History
-
Date of Service: February 04, 2025
Patient seen and examined while resting in bed. Endorses continued abdominal pain in the lower abdomen. States that he is still having diarrhea. Tolerating PO, no vomiting.
Objective Data
-
Labs:
Laboratory Results
02/04/25
06:52
WBC 6.1
Hgb 11.1 L
Hct 31.0 L
Plt Count 120 L
Sodium 137
Potassium 4.1
Chloride 108 H
Carbon Dioxide 26
BUN 26 H
Creatinine 1.3
Glucose 225 H
Calcium 8.4
Vital Signs:
Vital Signs
Temp Pulse Resp BP Pulse Ox
98.4 F 80 18 118/73 99
02/04/25 07:50 02/04/25 07:50 02/04/25 07:50 02/04/25 07:50 02/04/25 07:50
I&O
02/03/25 02/04/25 02/05/25
06:59 06:59 06:59
Intake Total 900 / 900 2415 / 2415
Balance 900 / 900 2415 / 2415
Review of Systems
-
History Source: Patient
All other systems: Reviewed and negative
Physical Exam
-
General: Well Developed, Well Nourished, No Apparent Distress and Appears Chronically Ill
HEENT: Normocephalic, Atraumatic and Anicteric
Respiratory: Clear to Auscultation and Non Labored Respirations; Negative Wheezes, Rales, Rhonchi or Crackles
Cardiac: Regular Rhythm, S1/S2 and Murmur
GI: Soft, Nondistended, Normal Bowel Sounds and Tender (Lower abdominal bilaterally)
Skin: Warm
Neuro: Awake
Psych: Calm
Data Reviewed
-
Labs: Labs Reviewed by me and Discussed with Patient
[2025-02-04] MEDS: NOVOLOG FLEXPEN 10 UNITS SC ×3 (09:21→18:27)
[2025-02-04] MEDS: NOVOLOG FLEXPEN-LOW RESISTANCE 3 UNITS SC (09:22)
[2025-02-04] MEDS: MAGNESIUM OXIDE 400 MG PO (09:23)
[2025-02-04] MEDS: MYFORTIC DELAYED REL. PO ×2 (09:23→09:49)
[2025-02-04] MEDS: PROGRAF 3 MG PO ×2 (09:23→20:48)
[2025-02-04] MEDS: TOPROL XL 12.5 MG PO (09:23)
[2025-02-04] MEDS: ASPIR LOW (ENTERIC COATED) 81 MG PO (09:23)
[2025-02-04] MEDS: NEURONTIN 300 MG PO ×2 (09:23→20:47)
[2025-02-04] MEDS: PROTONIX 40 MG PO ×2 (09:24→20:47)
[2025-02-04] MEDS: IMODIUM 2 MG PO ×3 (09:36→18:28)
[2025-02-04] MEDS: BENTYL 20 MG PO ×2 (09:36→18:28)
[2025-02-04] MEDS: HEPARIN SC ×2 (09:48→20:45)
[2025-02-04] MEDS: SENOKOT-S PO ×2 (09:49→20:46)
[2025-02-04] MEDS: MIRALAX PO (09:49)
[2025-02-04 12:32] LABS: Glucose - Point of Care 93 mg/dl (70-99)
--- NOTE | 2025-02-04 12:33 | CM ---
CM reviewed chart and met with pt bedside
Per PT eval, no needs noted
IMM verbally reviewed with pt- copy left bedside
He will drive himself home
He requested records from 06/16/23 admission- provided medical records contact info
Discharge Disposition- home no needs
[2025-02-04] MEDS: NOVOLOG FLEXPEN-LOW RESISTANCE SC ×2 (13:07→17:49)
--- NOTE | 2025-02-04 13:16 | PN.DE.MGMTRT ---
Insulin Management
- -
02/04/2025: Diabetes Management Follow up
65 year old male admitted 01/27 with c/o abdominal pain and headache. PMH: Liver cirrhosis secondary to chronic hepatitis C status post liver transplant/kidney transplant, anemia of chronic disease, diabetes, chronic right hip pain, chronic back
pain, CAD status post stents, bilateral lower extremity DVT with IVC filter, BPH status post TURP, former smoker.
Patient was recently admitted from 01/09 to 01/20 for abdominal pain and diarrhea, was treated for acute proctocolitis/diverticulitis. He is well known to the Diabetes team from his recent hospital visit.
Patient was previously seeing Dr. Jayro Rosado but he doesn't like him so is looking for a new endo. He has been asked not to return to his primary doctor so is looking for a new primary doctor as he previously stated, which he has not done since last
admission. Prior to admission was taking 16 units NovoLog AC with Lantus 35 units @ HS, there is concern of patient not taking his insulin at home, considering his Glucose was 513 on admission.
Recent A1C was 10.5% on 01/10. Cr 1.2, eGFR >60.
Patient is awake, alert and oriented, offers no complaints, resting in bed, able to discuss diabetes care. Patient for discharge today - refused discharge.
POD #6 s/p removal of biliary stent 01/29. Worsening kidney function, Cr 1.5, eGFR 51.99 today
02/03 premeal glucose 101 to 226 226 @ HS. States he has not had any snacks at bedtime since Monday. Received Lantus 22 units @ HS.
02/04 Fasting glucose today 225,. Will continue Lantus to 22 units @ HS. Cont NovoLog 10 units with low corrective insulin AC
Discussed with Nurse. Cont to follow.
Reinforced with patient the process for obtaining an insulin pump and to follow up with his PCP and endocrine.
Diabetes History
- -
Type of Diabetes: 2 requiring insulin
Pre-Admission Diabetes Regimen
02/04/25
06:52
Creatinine 1.3
Insulin Pump Settings
IP Diabetes Regimen
02/03/25 02/03/25 02/03/25
13:33 16:44 21:35
Glucose
POC Glucose 122 H 101 H 226 H
02/04/25 02/04/25 02/04/25
06:52 07:49 12:30
Glucose 225 H
POC Glucose 215 H 93
Meal type: Lunch
Amount consumed: 100%
Patient Education
[2025-02-04 15:58] VITALS: BP 120/60
[2025-02-04 17:32] LABS: Glucose - Point of Care 146 mg/dl (70-99)
[2025-02-04] MEDS: MYFORTIC DELAYED REL. 180 MG PO (20:47)
[2025-02-04 21:24] LABS: Glucose - Point of Care 317 mg/dl (70-99)
[2025-02-04] MEDS: LANTUS 0.22 UNITS SC (21:46)
[2025-02-04] MEDS: REQUIP 0.5 MG PO (21:46)
[2025-02-04] MEDS: NOVOLOG FLEXPEN 5 UNITS SC (21:47)
[2025-02-04 23:27] VITALS: BP 100/48
[2025-02-05] MEDS: IMODIUM 2 MG PO (04:31)
--- NOTE | 2025-02-05 05:15 | PTCARENOTE ---
At 2122 pt had POC glucose reading of 317. BREAK OUT MAN notified, overnight coverage ordered in addition to standing HS Lantus-See MAR. Bed in lowest position and locked, call prasad within reach and pt has no further concerns at this time.
[2025-02-05 07:40] VITALS: BP 109/57
[2025-02-05 07:42] LABS: Hematocrit 34.6 % (39.0-52.0); Hemoglobin 11.7 g/dL (13.0-18.0); Mean Corp Hgb Conc. 33.8 g/dL (33.0-37.0); Mean Corpuscular Volume 88.3 fL (80.0-94.0); Platelet Count 124 10^3/uL (130-400); Red Cell Dist. Width 15.1 % (11.5-14.5)
--- NOTE | 2025-02-05 07:48 | PN.DE.MGMTRT ---
Insulin Management
- -
02/05/2025: Diabetes Management Follow up
65 year old male admitted 01/27 with c/o abdominal pain and headache. PMH: Liver cirrhosis secondary to chronic hepatitis C status post liver transplant/kidney transplant, anemia of chronic disease, diabetes, chronic right hip pain, chronic back
pain, CAD status post stents, bilateral lower extremity DVT with IVC filter, BPH status post TURP, former smoker.
Patient was recently admitted from 01/09 to 01/20 for abdominal pain and diarrhea, was treated for acute proctocolitis/diverticulitis. He is well known to the Diabetes team from his recent hospital visit.
Patient was previously seeing Dr. Jayro Rosado but he doesn't like him so is looking for a new endo. He has been asked not to return to his primary doctor so is looking for a new primary doctor as he previously stated, which he has not done since last
admission. Prior to admission was taking 16 units NovoLog AC with Lantus 35 units @ HS, there is concern of patient not taking his insulin at home, considering his Glucose was 513 on admission.
Recent A1C was 10.5% on 01/10. Cr 1.1, eGFR >60.
Patient is awake, alert and oriented, offers no complaints, resting in bed, able to discuss diabetes care.
POD #7 s/p removal of biliary stent 01/29.
02/04 premeal glucose 93 to 225, 317 @ HS. States he has not had any snacks at bedtime since Monday. Received Lantus 22 units @ HS.
02/05 Fasting glucose 208 today. Will increase Lantus to 24 units @ HS. Cont NovoLog 10 units with low corrective insulin AC
Discussed with Nurse. Cont to follow.
Reinforced with patient the process for obtaining an insulin pump and to follow up with his PCP and endocrine.
Diabetes History
- -
Type of Diabetes: 2 requiring insulin
Pre-Admission Diabetes Regimen
Insulin Pump Settings
IP Diabetes Regimen
02/04/25 02/04/25 02/04/25
07:49 12:30 17:30
POC Glucose 215 H 93 146 H
02/04/25
21:23
POC Glucose 317 H
Meal type: Dinner
Meal type: Lunch
Meal type: Breakfast
Amount consumed: 100%
Amount consumed: 100%
Amount consumed: 100%
Patient Education
[2025-02-05 08:12] LABS: ALT (SGPT) 16 U/L (0-50); AST (SGOT) 17 U/L (17-59); Albumin 3.3 g/dl (3.5-5.0); Alkaline Phosphatase 111 U/L (38-126); Blood Urea Nitrogen 26 mg/dl (9-20); Calcium 8.6 mg/dl (8.4-10.2); Carbon Dioxide 24 mmol/L (22-30); Chloride 112 mmol/L (98-107); Estimated Creatinine Clearance 71 ml/min; Glucose 203 mg/dl (70-99); Potassium 4.2 mmol/L (3.5-5.1); Sodium 140 mmol/L (135-145); Total Protein 5.7 g/dl (6.3-8.2); eGFR > 60.00
--- NOTE | 2025-02-05 08:23 | W.PN.HOSP.TC ---
Addendum entered and electronically signed by Charlene Beltran MD 02/05/25 11:57:
After study ROXY has been ruled out
Addendum entered and electronically signed by Charlene Beltran MD 02/05/25 11:13:
Attending�addendum:
I saw and evaluated the patient. I reviewed the resident�s note and agree with findings and plan as documented in the resident�s note.��patient seen and examined at bedside, patient continues to complain of lower abdominal pain. And diarrhea, ask
GI to reevaluate, ordered x-ray abdomen.
Physical�exam:
GENERAL : Patient is awake, alert, oriented x3
HEENT: Nonicteric sclerae, PERRLA, EOMI. Oropharynx clear. Moist mucous membranes. Conjunctivae appear well perfused.
CHEST: Chest wall is nontender.
HEART: Regular rate and rhythm without murmurs.
LUNGS: Clear to auscultation bilaterally.
ABDOMEN: Soft, positive bowel sounds, nontender, no organomegaly.
RECTAL: Deferred.
MUSCLES/EXTREMITIES: No abnormal range of motion, no swelling.SKIN: No rash, no excessive bruising, petechiae, or purpura.
NEUROLOGIC: Cranial nerves II-XII intact without motor/sensory deficit.
�
Assessment/plan:
Abdominal pain.
Appreciate GI input.
Status post biliary stent removal.
GI signed off
Wean off Dilaudid.
Possible discharge in next 24 hours
02/04
Patient ready for discharge but refused to go home today, will discontinue Dilaudid, complaining of diarrhea, continue Imodium and Bentyl
02/05
Seen by GI, x-ray abdomen pending
ROXY
Resolved
Type 2 diabetes.
Blood sugar better controlled
Status post liver/kidney transplant.
Continue tacrolimus/mycophenolate
CODE STATUS: Full code
DVT prophylaxis: Heparin
Diet: DM diet
Disposition: X-ray abdomen.
�
Total time spent on today�s encounter was 51 minutes which included time spent in counseling the patient/family regarding diagnosis and treatment plan as listed above, goals of care, and symptom management. Case was discussed with nursing staff,
specialists, and care coordinators/case management. All labs and imaging personally reviewed by me. Remainder the time spent in detailed review of previous records, lab data, imaging, and other medical provider documentation.
Original Note:
Today's Communication/Plan
-
Accurate recording of stools. Mg level. Abdomen XR.
Assessment / Plan
Assessment / Plan
Cherie Crawford is a 65M w/ PMHx of liver cirrhosis 2/2 chronic hepatitis C s/p liver and kidney transplants, anemia of chronic disease, T2DM, chronic right hip and back pain, CAD s/p stents, bilateral LE DVT w/ IVC filter, BPH s/p TURP, hx C/Diff,
who presented with abdominal pain in the setting of a recent hospitalization for the same, during which he was treated w/ abx for proctocolitis/diverticulitis and underwent ERCP x 2 with hepatic duct and pancreatic ductal stenting. Abdominal pain
was associated with diarrhea.
ED COURSE
On presentation, BP 170/96, BS 568, Na 125, K 5.3.
CT Abd/Pelv: stent in the bile duct extending into the duodenum, moderate distention of the urinary bladder, moderate fecal material throughout the colon
CT Head: no acute abnormality
1. Abdominal Pain of Unclear Etiology
- T. Bili on admission 1.4; now normalized. All LFTs normalized at discharge.
- GI consulted, felt that the acute issues could be mitigated by bowel regimen, signed off for now
- Bowel regimen was started, and increased. Held 2/2 diarrhea; unclear if iatrogenic or 2/2 overflow.
- ERCP on last admission with removal of sludge and plastic stent placement in common hepatic duct.
- S/p biliary stent removal this admission 01/29
- Patient continues to want to hold off of bowel regimen
- Continue Bentyl; PRN opioids d/c
- Patient should establish care with outpatient pain management
1b. Continued Diarrhea
- Appreciate GI reccs
- On MgO2, mycophenolate, which can both precipitate diarrhea
- Prior CT with moderate stool burden
- Medication Induced vs. Overflow
- Nursing to accurately record all stools
- Check mg level (from MgO2)
- XR Abdomen to assess stool burden
2. Hyperkalemia (resolved)
- K 5.3 on admission, normalized.
- K 4.5 today.
- Daily BMP.
3. Headache
- Likely in the setting of stress, abdominal pain, decreased oral intake
- Patient notes chronicity, unable to take Tylenol 2/2 liver transplant
- CT Head/Brain unremarkable.
4. Type 2 DM with hyperglycemia on admission
- BS 560 on admission
- On sliding scale
- CHO diet, Lantus 18 units
- Aspart 10 units with meals
- Await DM [employer] MEMBER reccs
5. Anemia of Chronic Disease
- Stable (11.6), continue to monitor.
6. Hyponatremia (Resolved)
- 138 today, continue to monitor.
7. 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
- Continue tacrolimus, mycophenolate
- Mildly elevated Cr yesterday, tx gentle hydration, downtrending, continue NS @ 75ml/hr
8. Chronic right hip pain
9. Chronic back pain
- Continue gabapentin
10. CAD status post stents
- Continue metoprolol
- Continue aspirin
11. Bilateral lower extremity DVT with IVC filter
12. BPH status post TURP
13. Former smoker
14. Severe calcific atherosclerotic plaque in abdominal aorta
15. Restless leg syndrome
- continue ropinirole
CODE STATUS: Full code
DVT prophylaxis: Heparin
Diet: Diabetic Diet
Anticipated Discharge: Within 24 hours
Subjective/Interval History
-
Date of Service: February 05, 2025
Patient complains of continued lower abdominal pain and continued diarrhea. Otherwise no acute complaints.
Objective Data
-
Labs:
Laboratory Results
02/05/25
07:13
WBC 7.2
Hgb 11.7 L
Hct 34.6 L
Plt Count 124 L
Sodium 140
Potassium 4.2
Chloride 112 H
Carbon Dioxide 24
BUN 26 H
Creatinine 1.1
Glucose 203 H
Calcium 8.6
Total Bilirubin 0.7
AST 17
ALT 16
Alkaline Phosphatase 111
Vital Signs:
Vital Signs
Temp Pulse Resp BP Pulse Ox
99.0 F 75 18 100/48 99
02/04/25 23:27 02/04/25 23:27 02/04/25 23:27 02/04/25 23:27 02/05/25 03:26
I&O
02/04/25 02/05/25 02/06/25
06:59 06:59 06:59
Intake Total 2415 / 2415 780 / 780
Balance 2415 / 2415 780 / 780
Review of Systems
-
History Source: Patient
All other systems: Reviewed and negative
Physical Exam
-
General: No Apparent Distress and Appears Chronically Ill
HEENT: Normocephalic, Atraumatic and Moist Mucous Membranes
Respiratory: Clear to Auscultation and Non Labored Respirations; Negative Wheezes, Rales or Rhonchi
Cardiac: Regular Rhythm, S1/S2 and Murmur
GI: Soft, Nondistended, Normal Bowel Sounds and Tender (lower abdomen bilaterally)
Skin: Warm
Neuro: Awake, Alert and Oriented
Psych: Calm
Data Reviewed
-
Labs: Labs Reviewed by me and Discussed with Patient
[2025-02-05 08:24] LABS: Glucose - Point of Care 208 mg/dl (70-99)
[2025-02-05] MEDS: ASPIR LOW (ENTERIC COATED) 81 MG PO (09:29)
[2025-02-05] MEDS: PROTONIX 40 MG PO (09:29)
[2025-02-05] MEDS: MAGNESIUM OXIDE 400 MG PO (09:29)
[2025-02-05] MEDS: PROGRAF 3 MG PO ×2 (09:29→19:56)
[2025-02-05] MEDS: TOPROL XL 12.5 MG PO (09:30)
[2025-02-05] MEDS: NEURONTIN 300 MG PO ×2 (09:31→19:56)
[2025-02-05] MEDS: SENOKOT-S PO (09:38)
[2025-02-05] MEDS: MIRALAX PO (09:38)
[2025-02-05] MEDS: HEPARIN SC ×2 (09:38→19:54)
[2025-02-05] MEDS: MYFORTIC DELAYED REL. PO (09:38)
--- NOTE | 2025-02-05 10:10 | W.PN.GI.CBS2 ---
Addendum entered and electronically signed by Kaylen Vanessa, 02/05/25 11:47:
I would also stop the pantoprazole twice daily. I do not have a good reason for him to be on it and he has a history of C. difficile.
Can use famotidine once daily
Addendum entered and electronically signed by Kaylen Vanessa, 02/05/25 11:45:
Patient seen and examined independently of HUMAN RESOURCES LEADER. I agree with her note with my additions below
Deangelo is a 65-year-old male with history of liver and renal transplant 3 years ago on immunosuppression with tacrolimus and MMF. We were called back for diarrhea.
Patient said he struggled with mushy stools in the past but since his MMF was decreased to 1 pill daily he has been having 1-2 formed bowel movements daily. Said when he came into the hospital he was complaining of abdominal pain, he had imaging
and was told he was constipated despite moving his bowels 1-2 times a day. He was then given a bowel regimen the patient states since then he has had multiple episodes of diarrhea including 4 today that were large-volume yellow watery with
accidents. Patient states he has a history of C. difficile but still has some lower abdominal chronic pain. He did ask for pain medication but I told him Dilaudid is not a good idea and that most would use tramadol.
Magnesium level is normal. Would stop the magnesium since it can induce diarrhea
Check abdominal x-ray -I did review the CT scan from admission has moderate amount of stool but nothing significant
The x-ray does not show constipation which I doubt it will I will check a C. difficile since he is immunosuppressed and has a history of C. difficile
Original Note:
Today's Communication / Plan
-
asked to see again for diarrhea
concern for medication induced vs other
pt with hx diarrhea--likely related to Mycophenolic acid -- (pt recommended to stop but cut dose in 1/2 with improvement) then constipation on admission with lower abdominal pain and moderate stool burden on admission and now back to diarrhea
states 8 stool yesterday and 4 today
he took 4 dose of Imodium over last 24 hours
current medication docusate with senna BID(pt has been refusing), lactulose BID (pt has not been refusing), Miralax daily( pt has been refusing) -- will stop all meds and continue PRN
pt remain on Mag ox tabs and 1 dose on Mycophenolic daily which can lead to diarrhea
will check mag level today
will check repeat X ray for stool burden
still with lower abdominal pain chronic last few weeks etiology unclear
f/u outpatient with hand hose cutter at [facility] with hx transplant
if diarrhea persists repeat c-diff with hx in past
reviewed with nursing staff and Dr. Beltran and nursing staff
updated pt on plan
Assessment / Plan
-
64yo with hx hep C cirrhosis with prior liver/kidney transplant at [facility] in 2021 on mycophenolate (reduced his dose to one daily, although per patient was told to stop in June by [facility] for possible mycophenolate diarrhea) and tacrolimus,
c-diff post transplant, hx Esophageal varices, prior stenting ? esophageal vs biliary, CAD with prior stenting, IDDM, DVT with filter, BPH with prior TURP, ORIF hip, prior foot infection with several admission in past year. He was admitted several
times past spring with concern for diarrhea with complete workup for diarrhea in past including stool fat neg, fecal calpro normal, and elastase 266 which ruled out pancreatic insufficiency. Last colonoscopy 06/2024- fair prep, hemorrhoids, stool in
entire colon, diverticulosis, bx neg CVM and microscopic colitis. Eventually patient went to [facility] where it was recommended that he stop his mycophenolate for possible mycophenolate induced diarrhea but pt decided to decreased dose with
improvement. Pt also with recent admission 01/09- 01/20 with abdominal pain and diarrhea. CT with concern for proctocolitis, mild diverticulitis at the junction of the distal descending colon proximal sigmoid colon, mild to moderate colonic fecal
burden,central lucency of the prostate gland suggesting a TURP defect versus central gland prostatic cyst. Pt was given antibiotics then had rise in LFT's with further follow up imaging concern for choledocholithiasis. He completed EUS and ERCP x
2 during admission and had repeat CT with improvement. He is due for stent removal 2-4 weeks but not scheduled and removed 01/29 during this admission. GI intially asked to see for lower abdominal pain CT on admission with changes of
transplant, stent into duodenum, SM, renal atrophy, bladder distention, moderate stool in colon, filter in place and diverticulosis. He has been treated for constipation and now persistent diarrhea.
-lower abdominal pain now improving
-mild increased Bili and alk phos - improved
-moderate stool on CT on admission
-bladder distention on admission
-s/p EUS ECRP x 2 with choledocholithiasis and stent placement s/p stent removal 01/29
-recent diverticulitis not noted on repeat CT
-recent diarrhea mycophenolate related to change in dosage with extensive work up
-hyperglycemia on admission
-hx liver/kidney transplant on chronic immunosuppression
other med problems:
-hx c-diff post transplant
-hx prior EV with ? stent
-CAD with prior stenting
-IDDM
-hx DVT with prior filter
-BPH with TURP
-hip pain
PLAN:
asked to see again for diarrhea
concern for medication induced vs other
pt with hx diarrhea--likely related to Mycophenolic acid -- (pt recommended to stop but cut dose in 1/2 with improvement) then constipation on admission with lower abdominal pain and moderate stool burden on admission and now back to diarrhea
states 8 stool yesterday and 4 today
he took 4 dose of Imodium over last 24 hours
current medication docusate with senna BID(pt has been refusing), lactulose BID (pt has not been refusing), Miralax daily( pt has been refusing) -- will stop all meds and continue PRN
pt remain on Mag ox tabs and 1 dose on Mycophenolic daily which can lead to diarrhea
will check mag level today
will check repeat X ray for stool burden
still with lower abdominal pain chronic last few weeks etiology unclear
f/u outpatient with hand hose cutter at [facility] with hx transplant
if diarrhea persists repeat c-diff with hx in past
reviewed with nursing staff and Dr. Beltran and nursing staff
updated pt on plan
Subjective
Subjective
Date of Service: February 05, 2025
asked to see again for diarrhea, on ADA diet
Objective
Data Reviewed
Laboratory Data:
Laboratory Results
02/05/25 07:13
02/05/25 07:13
Laboratory Results
PT 13.2 Sec (11.4-14.6) 01/29/25 07:35
INR 0.95 01/29/25 07:35
Total Bilirubin 0.7 mg/dl (0.2-1.3) 02/05/25 07:13
AST 17 U/L (17-59) 02/05/25 07:13
ALT 16 U/L (0-50) 02/05/25 07:13
Alkaline Phosphatase 111 U/L (38-126) 02/05/25 07:13
Lipase 71 U/L (23-300) 01/27/25 15:58
Vital Signs and I&O:
Vital Signs
Temp Pulse Resp BP Pulse Ox
98.0 F 79 16 109/57 99
02/05/25 07:40 02/05/25 09:30 02/05/25 07:40 02/05/25 09:30 02/05/25 07:40
I&O
02/04/25 02/05/25 02/06/25
06:59 06:59 06:59
Intake Total 241 / 2415 780 / 780
Balance 241 / 241 780 / 780
Physical Exam
Physical Exam
HEENT: Anicteric and Moist mucous membranes
Cardiology: Normal Sinus Rhythm
Pulmonary: Clear
GI: Soft, Non Distended and Non Tender
[2025-02-05 11:02] LABS: Magnesium 1.8 mg/dl (1.6-2.3)
--- NOTE | 2025-02-05 11:45 | PN.CDI ---
CDI
- -
CDI:
Physician Documentation Request
Admit Date: 01/28/25 12:39
Dear Doctor Alcira,
Patient admitted with abdominal pain,
02/03- progress notes include a diagnosis of ROXY
Most recent creatinine results:
Laboratory Tests
01/28/25 01/29/25 01/30/25
12:52 07:35 07:55
Creatinine 1.2 1.3 1.3
01/31/25 02/03/25 02/04/25
07:31 07:13 06:52
Creatinine 1.4 H 1.5 H 1.3
02/05/25
07:13
Creatinine 1.1
Criteria for ROXY*
1 Increase in serum creatinine by > or = to 0.3 mg/dL (> or = to 26.5 micromol/L) within 48 hours, OR
2 Increase in serum creatinine to > or = to 1.5 times baseline, which is known or presumed to have occurred within 7 days, OR
3 Urine volume < 0.5 nL/kg/hour for six hours
Based on the above information and the recognized standard for ROXY could you please verify this diagnoses is still accurate and reflective of the patient�s condition to ensure quality of the medical record.
Please clarify in the Progress Notes:
�ROXY is/was present and is a clinical diagnosis based on (please include this additional support in the medical record)
�After study ROXY has been ruled out
�Other
Use of terms such as suspected, likely, concern for, or probable (associated with a specific diagnosis that is being evaluated, monitored, or treated as if it exists) are acceptable and can be coded in the inpatient setting, when documented at the
time of discharge.
Thank you,
Argentina Gibbs RN, BSN
CDI Specialist
tiger text
Please use your independent medical judgment in providing your response.
[2025-02-05] MEDS: NOVOLOG FLEXPEN-LOW RESISTANCE SC (11:46)
[2025-02-05] MEDS: NOVOLOG FLEXPEN SC (11:46)
[2025-02-05 14:55] LABS: Glucose - Point of Care 254 mg/dl (70-99)
[2025-02-05] MEDS: NOVOLOG FLEXPEN 10 UNITS SC ×2 (14:56→18:08)
[2025-02-05] MEDS: NOVOLOG FLEXPEN-LOW RESISTANCE 5 UNITS SC (14:56)
[2025-02-05 15:25] VITALS: BP 112/60
[2025-02-05 17:03] LABS: Glucose - Point of Care 217 mg/dl (70-99)
[2025-02-05] MEDS: NOVOLOG FLEXPEN-LOW RESISTANCE 3 UNITS SC (18:08)
[2025-02-05] MEDS: MYFORTIC DELAYED REL. 180 MG PO (19:57)
[2025-02-05 21:47] LABS: Glucose - Point of Care 277 mg/dl (70-99)
[2025-02-05] MEDS: LANTUS 0.24 UNITS SC (22:05)
[2025-02-05] MEDS: REQUIP PO (22:07)
[2025-02-05 23:53] VITALS: BP 146/79
--- NOTE | 2025-02-06 07:36 | PN.DE.MGMTRT ---
Insulin Management
- -
02/06/2025: Diabetes Management Follow up
65 year old male admitted 01/27 with c/o abdominal pain and headache. PMH: Liver cirrhosis secondary to chronic hepatitis C status post liver transplant/kidney transplant, anemia of chronic disease, diabetes, chronic right hip pain, chronic back
pain, CAD status post stents, bilateral lower extremity DVT with IVC filter, BPH status post TURP, former smoker.
Patient was recently admitted from 01/09 to 01/20 for abdominal pain and diarrhea, was treated for acute proctocolitis/diverticulitis. He is well known to the Diabetes team from his recent hospital visit.
Patient was previously seeing Dr. Jayro Rosado but he doesn't like him so is looking for a new endo. He has been asked not to return to his primary doctor so is looking for a new primary doctor as he previously stated, which he has not done since last
admission. Prior to admission was taking 16 units NovoLog AC with Lantus 35 units @ HS, there is concern of patient not taking his insulin at home, considering his Glucose was 513 on admission.
Recent A1C was 10.5% on 01/10. Cr 1.1, eGFR >60.
Patient is awake, alert and oriented, offers no complaints, resting in bed, able to discuss diabetes care.
POD #8 s/p removal of biliary stent 01/29.
02/05 Fasting glucose 208. HS Lantus increased to 24 units. Cont NovoLog 10 units with low corrective insulin AC.
02/06 Pre meal glucose yesterday 217 to 277. Will increase AC novolog to 14 units with low corrective. Will continue lantus 24 units @ HS
Discussed with Nurse. Cont to follow.
Reinforced with patient the process for obtaining an insulin pump and to follow up with his PCP and endocrine.
Diabetes History
- -
Type of Diabetes: 2 requiring insulin
Pre-Admission Diabetes Regimen
02/05/25
07:13
Creatinine 1.1
Insulin Pump Settings
IP Diabetes Regimen
10/02/05/25 02/05/25
07:13 08:23 14:53
Glucose 203 H
POC Glucose 208 H 254 H
02/05/25 02/05/25
17:01 21:46
Glucose
POC Glucose 217 H 277 H
Meal type: Lunch
Meal type: Breakfast
Amount consumed: 100%
Amount consumed: 100%
Patient Education
[2025-02-06 07:45] VITALS: BP 123/76
[2025-02-06 07:58] LABS: Glucose - Point of Care 225 mg/dl (70-99)
[2025-02-06] MEDS: HEPARIN SC ×2 (08:46→19:42)
[2025-02-06] MEDS: ASPIR LOW (ENTERIC COATED) 81 MG PO (08:46)
[2025-02-06] MEDS: TOPROL XL 12.5 MG PO (08:47)
[2025-02-06] MEDS: PEPCID 20 MG PO (08:47)
[2025-02-06] MEDS: NEURONTIN 300 MG PO ×2 (08:48→19:43)
[2025-02-06] MEDS: MYFORTIC DELAYED REL. PO (08:48)
[2025-02-06] MEDS: PROGRAF 3 MG PO ×2 (08:48→19:43)
[2025-02-06 09:28] LABS: Hematocrit 34.4 % (39.0-52.0); Hemoglobin 12.0 g/dL (13.0-18.0); Mean Corp Hgb Conc. 34.9 g/dL (33.0-37.0); Mean Corpuscular Volume 86.0 fL (80.0-94.0); Platelet Count 137 10^3/uL (130-400); Red Cell Dist. Width 15.2 % (11.5-14.5)
--- NOTE | 2025-02-06 09:31 | W.PN.HOSP.TC ---
Addendum entered and electronically signed by Charlene Beltran MD 02/06/25 13:46:
Attending�addendum:
I saw and evaluated the patient. I reviewed the resident�s note and agree with findings and plan as documented in the resident�s note.��patient seen and examined at bedside, patient continues to complain of lower abdominal pain, still with
significant diarrhea.
Stool studies been sent.
Physical�exam:
GENERAL : Patient is awake, alert, oriented x3
HEENT: Nonicteric sclerae, PERRLA, EOMI. Oropharynx clear. Moist mucous membranes. Conjunctivae appear well perfused.
CHEST: Chest wall is nontender.
HEART: Regular rate and rhythm without murmurs.
LUNGS: Clear to auscultation bilaterally.
ABDOMEN: Soft, positive bowel sounds, nontender, no organomegaly.
RECTAL: Deferred.
MUSCLES/EXTREMITIES: No abnormal range of motion, no swelling.SKIN: No rash, no excessive bruising, petechiae, or purpura.
NEUROLOGIC: Cranial nerves II-XII intact without motor/sensory deficit.
�
Assessment/plan:
Abdominal pain.
Appreciate GI input.
Status post biliary stent removal.
GI signed off
Weaned off Dilaudid.
-Complaining of diarrhea.
Stool studies pending
Type 2 diabetes.
Blood sugar better controlled
Status post liver/kidney transplant.
Continue tacrolimus/mycophenolate
CODE STATUS: Full code
DVT prophylaxis: Heparin
Diet: DM diet
Disposition: Pending stool studies
�
Total time spent on today�s encounter was 51 minutes which included time spent in counseling the patient/family regarding diagnosis and treatment plan as listed above, goals of care, and symptom management. Case was discussed with nursing staff,
specialists, and care coordinators/case management. All labs and imaging personally reviewed by me. Remainder the time spent in detailed review of previous records, lab data, imaging, and other medical provider documentation.
Original Note:
Today's Communication/Plan
-
Stool studies pending.
Assessment / Plan
Assessment / Plan
Cherie Crawford is a 65M w/ PMHx of liver cirrhosis 2/2 chronic hepatitis C s/p liver and kidney transplants, anemia of chronic disease, T2DM, chronic right hip and back pain, CAD s/p stents, bilateral LE DVT w/ IVC filter, BPH s/p TURP, hx C/Diff,
who presented with abdominal pain in the setting of a recent hospitalization for the same, during which he was treated w/ abx for proctocolitis/diverticulitis and underwent ERCP x 2 with hepatic duct and pancreatic ductal stenting. Abdominal pain
was associated with diarrhea.
ED COURSE
On presentation, BP 170/96, BS 568, Na 125, K 5.3.
CT Abd/Pelv: stent in the bile duct extending into the duodenum, moderate distention of the urinary bladder, moderate fecal material throughout the colon
CT Head: no acute abnormality
1. Abdominal Pain of Unclear Etiology
- T. Bili on admission 1.4; now normalized. All LFTs normalized.
- GI consulted, felt that the acute issues could be mitigated by bowel regimen, signed off for now
- Bowel regimen was started, and increased. Held 2/2 diarrhea; unclear if iatrogenic or 2/2 overflow.
- ERCP on last admission with removal of sludge and plastic stent placement in common hepatic duct.
- S/p biliary stent removal this admission 01/29
- Continue Bentyl; PRN opioids d/angely
- Patient should establish care with outpatient pain management
- Abdomen XR (02/05): no signs of constipation
1b. Continued Diarrhea
- Appreciate GI reccs
- On MgO2, mycophenolate, which can both precipitate diarrhea
- Prior CT with moderate stool burden
- Abdomen XR (02/05): no signs of obstruction/stool burden
- Appears more likely to be medication induced
- Mg level normal, Mg discontinued
- Await stool cx/WBC
2. Hyperkalemia (resolved)
- K 5.3 on admission, normalized.
- K 4.5 today.
- Daily BMP.
3. Headache
- Likely in the setting of stress, abdominal pain, decreased oral intake
- Patient notes chronicity, unable to take Tylenol 2/2 liver transplant
- CT Head/Brain unremarkable.
4. Type 2 DM with hyperglycemia on admission
- BS 560 on admission
- On sliding scale
- CHO diet, Lantus 18 units
- Aspart 10 units with meals
- Await DM [employer] INTERPRETER reccs
5. Anemia of Chronic Disease
- Stable (11.6), continue to monitor.
6. Hyponatremia (Resolved)
- 138 today, continue to monitor.
7. 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
- Continue tacrolimus, mycophenolate
8. Chronic right hip pain
9. Chronic back pain
- Continue gabapentin
10. CAD status post stents
- Continue metoprolol
- Continue aspirin
11. Bilateral lower extremity DVT with IVC filter
12. BPH status post TURP
13. Former smoker
14. Severe calcific atherosclerotic plaque in abdominal aorta
15. Restless leg syndrome
- continue ropinirole
CODE STATUS: Full code
DVT prophylaxis: Heparin
Diet: Diabetic Diet
Anticipated Discharge: Within 24 hours
Subjective/Interval History
-
Date of Service: February 06, 2025
Patient seen and examined while resting comfortably in bed, and while ambulating to bathroom.
States that diarrhea has improved since stopping Mg and starting Imodium.
Notes 2 bowel movements in the past 24 hours, described as muddy, but improved from watery.
States he still has lower abdominal pain.
Otherwise does not offer up any acute complaints.
Objective Data
-
Labs:
Laboratory Results
02/06/25
08:42
WBC 6.3
Hgb 12.0 L
Hct 34.4 L
Plt Count 137
Sodium Pending
Potassium Pending
Chloride Pending
Carbon Dioxide Pending
BUN Pending
Creatinine Pending
Glucose Pending
Calcium Pending
Vital Signs:
Vital Signs
Temp Pulse Resp BP Pulse Ox
97.8 F 77 16 123/76 100
02/06/25 07:45 02/06/25 08:47 02/06/25 07:45 02/06/25 08:47 02/06/25 07:45
I&O
02/05/25 02/06/25 02/07/25
06:59 06:59 06:59
Intake Total 780 / 780 540 / 540
Output Total 400 / 400
Balance 780 / 780 140 / 140
Review of Systems
-
History Source: Patient
All other systems: Reviewed and negative
Physical Exam
-
General: No Apparent Distress and Appears Chronically Ill
HEENT: Normocephalic, Atraumatic and Moist Mucous Membranes
Respiratory: Clear to Auscultation and Non Labored Respirations; Negative Wheezes, Rales, Rhonchi or Crackles
Cardiac: Regular Rhythm and S1/S2
GI: Soft, Nondistended, Normal Bowel Sounds and Tender (lower abdomen bilaterally)
Skin: Warm
Neuro: Awake, Alert and Oriented
Psych: Calm
Data Reviewed
-
Labs: Labs Reviewed by me
[2025-02-06 09:57] LABS: Blood Urea Nitrogen 25 mg/dl (9-20); Calcium 8.8 mg/dl (8.4-10.2); Carbon Dioxide 27 mmol/L (22-30); Chloride 109 mmol/L (98-107); Estimated Creatinine Clearance 60 ml/min; Glucose 193 mg/dl (70-99); Potassium 4.2 mmol/L (3.5-5.1); Sodium 142 mmol/L (135-145); eGFR > 60.00
--- NOTE | 2025-02-06 10:00 | PTCARENOTE ---
Pt had x1 loose stool this am. Dr notified. Stool specimen collected and send per order for stool studies.
[2025-02-06] MEDS: NOVOLOG FLEXPEN-LOW RESISTANCE 3 UNITS SC ×2 (10:04→17:52)
[2025-02-06] MEDS: NOVOLOG FLEXPEN 14 UNITS SC ×3 (10:04→17:51)
[2025-02-06] MEDS: NOVOLOG FLEXPEN SC (10:09)
--- NOTE | 2025-02-06 11:36 | W.PN.GI.CBS2 ---
Today's Communication / Plan
-
Await stool studies
Assessment / Plan
-
64yo with hx hep C cirrhosis with prior liver/kidney transplant at [facility] in 2021 on mycophenolate (reduced his dose to one daily, although per patient was told to stop in June by [facility] for possible mycophenolate diarrhea) and tacrolimus,
c-diff post transplant, hx Esophageal varices, prior stenting ? esophageal vs biliary, CAD with prior stenting, IDDM, DVT with filter, BPH with prior TURP, ORIF hip, prior foot infection with several admission in past year. He was admitted several
times past spring with concern for diarrhea with complete workup for diarrhea in past including stool fat neg, fecal calpro normal, and elastase 266 which ruled out pancreatic insufficiency. Last colonoscopy 06/2024- fair prep, hemorrhoids, stool in
entire colon, diverticulosis, bx neg CVM and microscopic colitis. Eventually patient went to [facility] where it was recommended that he stop his mycophenolate for possible mycophenolate induced diarrhea but pt decided to decreased dose with
improvement. Pt also with recent admission 01/09- 01/20 with abdominal pain and diarrhea. CT with concern for proctocolitis, mild diverticulitis at the junction of the distal descending colon proximal sigmoid colon, mild to moderate colonic fecal
burden,central lucency of the prostate gland suggesting a TURP defect versus central gland prostatic cyst. Pt was given antibiotics then had rise in LFT's with further follow up imaging concern for choledocholithiasis. He completed EUS and ERCP x
2 during admission and had repeat CT with improvement. He is due for stent removal 2-4 weeks but not scheduled and removed 01/29 during this admission. GI intially asked to see for lower abdominal pain CT on admission with changes of
transplant, stent into duodenum, SM, renal atrophy, bladder distention, moderate stool in colon, filter in place and diverticulosis. He has been treated for constipation and now persistent diarrhea.
-lower abdominal pain now improving
-mild increased Bili and alk phos - improved
-moderate stool on CT on admission
-bladder distention on admission
-s/p EUS ECRP x 2 with choledocholithiasis and stent placement s/p stent removal 01/29
-recent diverticulitis not noted on repeat CT
-recent diarrhea mycophenolate related to change in dosage with extensive work up
-hyperglycemia on admission
-hx liver/kidney transplant on chronic immunosuppression
other med problems:
-hx c-diff post transplant
-hx prior EV with ? stent
-CAD with prior stenting
-IDDM
-hx DVT with prior filter
-BPH with TURP
-hip pain
02/05/25
asked to see again for diarrhea
concern for medication induced vs other
pt with hx diarrhea--likely related to Mycophenolic acid -- (pt recommended to stop but cut dose in 1/2 with improvement) then constipation on admission with lower abdominal pain and moderate stool burden on admission and now back to diarrhea
states 8 stool yesterday and 4 today
he took 4 dose of Imodium over last 24 hours
current medication docusate with senna BID(pt has been refusing), lactulose BID (pt has not been refusing), Miralax daily( pt has been refusing) -- will stop all meds and continue PRN
pt remain on Mag ox tabs and 1 dose on Mycophenolic daily which can lead to diarrhea
will check mag level today
will check repeat X ray for stool burden
still with lower abdominal pain chronic last few weeks etiology unclear
f/u outpatient with control room helper at [facility] with hx transplant
if diarrhea persists repeat c-diff with hx in past
reviewed with nursing staff and Dr. Beltran and nursing staff
updated pt on plan
02/06/25: Patient continues to have loose brown stools
-- Stool studies pending
-- Reviewed x-ray from yesterday showing air and stool but not significantly constipated
Subjective
Subjective
Date of Service: February 06, 2025
Patient states still having multiple watery stools. I did see the stool in the toilet which is watery and brown. Stool studies are now pending
Objective
Data Reviewed
Laboratory Data:
Laboratory Results
02/06/25 08:42
02/06/25 08:42
Laboratory Results
PT 13.2 Sec (11.4-14.6) 01/29/25 07:35
INR 0.95 01/29/25 07:35
Magnesium 1.8 mg/dl (1.6-2.3) 02/05/25 07:13
Total Bilirubin 0.7 mg/dl (0.2-1.3) 02/05/25 07:13
AST 17 U/L (17-59) 02/05/25 07:13
ALT 16 U/L (0-50) 02/05/25 07:13
Alkaline Phosphatase 111 U/L (38-126) 02/05/25 07:13
Lipase 71 U/L (23-300) 01/27/25 15:58
Vital Signs and I&O:
Vital Signs
Temp Pulse Resp BP Pulse Ox
97.8 F 77 16 123/76 100
02/06/25 07:45 02/06/25 08:47 02/06/25 07:45 02/06/25 08:47 02/06/25 09:50
I&O
02/05/25 02/06/25 02/07/25
06:59 06:59 06:59
Intake Total 780 / 780 540 / 540
Output Total 400 / 400
Balance 780 / 780 140 / 140
Physical Exam
Physical Exam
HEENT: Anicteric
Cardiology: Normal Sinus Rhythm
GI: Soft, Non Distended and Non Tender
Neuro: Non Focal
[2025-02-06] MEDS: IMODIUM 2 MG PO ×3 (11:47→22:32)
[2025-02-06 12:57] LABS: Glucose - Point of Care 110 mg/dl (70-99)
[2025-02-06] MEDS: NOVOLOG FLEXPEN-LOW RESISTANCE SC (12:59)
[2025-02-06 15:40] VITALS: BP 130/67
[2025-02-06 17:26] LABS: Glucose - Point of Care 224 mg/dl (70-99)
[2025-02-06] MEDS: MYFORTIC DELAYED REL. 180 MG PO (19:43)
[2025-02-06 21:28] LABS: Glucose - Point of Care 230 mg/dl (70-99)
[2025-02-06] MEDS: LANTUS 0.24 UNITS SC (22:23)
[2025-02-06] MEDS: REQUIP 0.5 MG PO (22:23)
[2025-02-06 23:34] VITALS: BP 133/69
--- NOTE | 2025-02-07 06:07 | W.PN.GI.CBS2 ---
Today's Communication / Plan
-
Please see assessment and plan for details.
Assessment / Plan
-
1. Diarrhea : Initially with possible overflow, though he states was feeling well until he had multiple laxatives, now resolved with no further diarrhea. Stool studies negative so far, x-ray without large stool burden, now doing better overall.
At this point would continue Imodium as needed, though we discussed trying to minimize this and continued bowel regimen. Will hold on further GI workup for now.
2. Post OLT: LFTs normal, discussed importance of following up with transplant hepatology.
3. CBD stone: Status post EUS, multiple ERCPs with stent, sphincterotomy, stone removal and removal of stent.
We will sign off for now, please go back with any further questions.
Subjective
Subjective
Date of Service: February 07, 2025
Patient feeling much better overall, no diarrhea overnight. No abdominal pain, nausea or vomiting.
Objective
Data Reviewed
Laboratory Data:
Laboratory Results
02/06/25 08:42
02/06/25 08:42
Laboratory Results
PT 13.2 Sec (11.4-14.6) 01/29/25 07:35
INR 0.95 01/29/25 07:35
Magnesium 1.8 mg/dl (1.6-2.3) 02/05/25 07:13
Total Bilirubin 0.7 mg/dl (0.2-1.3) 02/05/25 07:13
AST 17 U/L (17-59) 02/05/25 07:13
ALT 16 U/L (0-50) 02/05/25 07:13
Alkaline Phosphatase 111 U/L (38-126) 02/05/25 07:13
Lipase 71 U/L (23-300) 01/27/25 15:58
Vital Signs and I&O:
Vital Signs
Temp Pulse Resp BP Pulse Ox
98.3 F 71 16 133/69 99
02/06/25 23:34 02/06/25 23:34 02/06/25 23:34 02/06/25 23:34 02/07/25 01:11
I&O
02/05/25 02/06/25 02/07/25
06:59 06:59 06:59
Intake Total 780 / 780 540 / 540 1140 / 1140
Output Total 400 / 400
Balance 780 / 780 140 / 140 1140 / 1140
Physical Exam
Physical Exam
General: NAD
Abdomen: normal bowel sounds, soft, no tenderness, no masses or bruits, no ascites
--- NOTE | 2025-02-07 07:30 | PN.DE.MGMTRT ---
Insulin Management
- -
02/07/2025: Diabetes Management Follow up
65 year old male admitted 01/27 with c/o abdominal pain and headache. PMH: Liver cirrhosis secondary to chronic hepatitis C status post liver transplant/kidney transplant, anemia of chronic disease, diabetes, chronic right hip pain, chronic back
pain, CAD status post stents, bilateral lower extremity DVT with IVC filter, BPH status post TURP, former smoker.
Patient was recently admitted from 01/09 to 01/20 for abdominal pain and diarrhea, was treated for acute proctocolitis/diverticulitis. He is well known to the Diabetes team from his recent hospital visit.
Patient was previously seeing Dr. Jayro Rosado but he doesn't like him so is looking for a new endo. He has been asked not to return to his primary doctor so is looking for a new primary doctor as he previously stated, which he has not done since last
admission. Prior to admission was taking 16 units NovoLog AC with Lantus 35 units @ HS, there is concern of patient not taking his insulin at home, considering his Glucose was 513 on admission.
Recent A1C was 10.5% on 01/10. Cr 1.1, eGFR >60.
Patient is awake, alert and oriented, offers no complaints, resting in bed, able to discuss diabetes care.
POD # 9 s/p removal of biliary stent 01/29.
02/06 Pre meal glucose range 110 to 223, required 3 units of corrective insulin with meals. FBG 190 today
Will increase AC NovoLog to 17 units and Lantus to 26 units. Cont low corrective with meals
Discussed with Nurse. Cont to follow.
Reinforced with patient the process for obtaining an insulin pump and to follow up with his PCP and endocrine.
Diabetes History
- -
Type of Diabetes: 2 requiring insulin
Pre-Admission Diabetes Regimen
02/06/25
08:42
Creatinine 1.3
Insulin Pump Settings
IP Diabetes Regimen
02/06/25 02/06/25 02/06/25
07:57 08:42 12:55
Glucose 193 H
POC Glucose 225 H 110 H
02/06/25 02/06/25
17:25 21:27
Glucose
POC Glucose 224 H 230 H
Meal type: Lunch
Meal type: Breakfast
Amount consumed: 100%
Amount consumed: 100%
Patient Education
[2025-02-07 07:34] VITALS: BP 126/75
[2025-02-07 08:14] LABS: Glucose - Point of Care 190 mg/dl (70-99)
[2025-02-07] MEDS: NOVOLOG FLEXPEN-LOW RESISTANCE 1 UNITS SC (08:31)
[2025-02-07] MEDS: NOVOLOG FLEXPEN 17 UNITS SC ×2 (08:32→14:01)
[2025-02-07] MEDS: TOPROL XL 12.5 MG PO (08:33)
[2025-02-07] MEDS: NEURONTIN 300 MG PO (08:33)
[2025-02-07] MEDS: ASPIR LOW (ENTERIC COATED) 81 MG PO (08:35)
[2025-02-07] MEDS: PEPCID 20 MG PO (08:35)
[2025-02-07] MEDS: PROGRAF 3 MG PO (08:35)
[2025-02-07] MEDS: IMODIUM 2 MG PO ×2 (09:06→13:41)
[2025-02-07] MEDS: HEPARIN SC (09:12)
[2025-02-07] MEDS: NOVOLOG FLEXPEN SC (09:13)
[2025-02-07] MEDS: MYFORTIC DELAYED REL. PO (09:13)
[2025-02-07 10:13] LABS: Hematocrit 34.9 % (39.0-52.0); Hemoglobin 11.8 g/dL (13.0-18.0); Mean Corp Hgb Conc. 33.8 g/dL (33.0-37.0); Mean Corpuscular Volume 87.9 fL (80.0-94.0); Platelet Count 125 10^3/uL (130-400); Red Cell Dist. Width 15.2 % (11.5-14.5)
[2025-02-07 10:32] LABS: Blood Urea Nitrogen 23 mg/dl (9-20); Calcium 8.9 mg/dl (8.4-10.2); Carbon Dioxide 27 mmol/L (22-30); Chloride 106 mmol/L (98-107); Estimated Creatinine Clearance 65 ml/min; Glucose 119 mg/dl (70-99); Potassium 3.8 mmol/L (3.5-5.1); Sodium 136 mmol/L (135-145); eGFR > 60.00
--- NOTE | 2025-02-07 11:56 | W.PN.HOSP.TC ---
Addendum entered and electronically signed by Charlene Beltran MD 02/07/25 12:15:
Attending�addendum:
I saw and evaluated the patient. I reviewed the resident�s note and agree with findings and plan as documented in the resident�s note.��patient seen and examined at bedside, patient continues to complain of lower abdominal pain, still with
significant diarrhea.
Stool studies been sent.
Physical�exam:
GENERAL : Patient is awake, alert, oriented x3
HEENT: Nonicteric sclerae, PERRLA, EOMI. Oropharynx clear. Moist mucous membranes. Conjunctivae appear well perfused.
CHEST: Chest wall is nontender.
HEART: Regular rate and rhythm without murmurs.
LUNGS: Clear to auscultation bilaterally.
ABDOMEN: Soft, positive bowel sounds, nontender, no organomegaly.
RECTAL: Deferred.
MUSCLES/EXTREMITIES: No abnormal range of motion, no swelling.SKIN: No rash, no excessive bruising, petechiae, or purpura.
NEUROLOGIC: Cranial nerves II-XII intact without motor/sensory deficit.
�
Assessment/plan:
Abdominal pain.
Appreciate GI input.
Status post biliary stent removal.
GI signed off
Weaned off Dilaudid.
-Complaining of diarrhea.
Stool studies pending
Back pain.
Will be discharged on baclofen
Type 2 diabetes.
Blood sugar better controlled
Status post liver/kidney transplant.
Continue tacrolimus/mycophenolate
CODE STATUS: Full code
DVT prophylaxis: Heparin
Diet: DM diet
Disposition: Discharge home today
�
Total time spent on today�s encounter was 51 minutes which included time spent in counseling the patient/family regarding diagnosis and treatment plan as listed above, goals of care, and symptom management. Case was discussed with nursing staff,
specialists, and care coordinators/case management. All labs and imaging personally reviewed by me. Remainder the time spent in detailed review of previous records, lab data, imaging, and other medical provider documentation.
Original Note:
Today's Communication/Plan
-
Discharge today.
Assessment / Plan
Assessment / Plan
Cherie Crawford is a 65M w/ PMHx of liver cirrhosis 2/2 chronic hepatitis C s/p liver and kidney transplants, anemia of chronic disease, T2DM, chronic right hip and back pain, CAD s/p stents, bilateral LE DVT w/ IVC filter, BPH s/p TURP, hx C/Diff,
who presented with abdominal pain in the setting of a recent hospitalization for the same, during which he was treated w/ abx for proctocolitis/diverticulitis and underwent ERCP x 2 with hepatic duct and pancreatic ductal stenting. Abdominal pain
was associated with diarrhea.
ED COURSE
On presentation, BP 170/96, BS 568, Na 125, K 5.3.
CT Abd/Pelv: stent in the bile duct extending into the duodenum, moderate distention of the urinary bladder, moderate fecal material throughout the colon
CT Head: no acute abnormality
1. Abdominal Pain of Unclear Etiology
- T. Bili on admission 1.4; now normalized. All LFTs normalized.
- GI consulted, felt that the acute issues could be mitigated by bowel regimen
- Bowel regimen was started, and increased. Held 2/2 diarrhea; unclear if iatrogenic or 2/2 overflow.
- ERCP on last admission with removal of sludge and plastic stent placement in common hepatic duct.
- S/p biliary stent removal this admission 01/29
- Continue Bentyl; PRN opioids d/angely
- Patient should establish care with outpatient pain management
- Patient should establish care with hepatology
- Abdomen XR (02/05): no signs of constipation
1b. Continued Diarrhea (resolved)
- Appreciate GI reccs
- On MgO2, mycophenolate, which can both precipitate diarrhea
- Prior CT with moderate stool burden
- Abdomen XR (02/05): no signs of obstruction/stool burden
- Appears more likely to be medication induced
- Mg level normal, Mg discontinued
- Stool negative for WBC, culture pending.
2. Hyperkalemia (resolved)
- K 5.3 on admission, normalized.
- K 4.5 today.
- Daily BMP.
3. Headache
- Likely in the setting of stress, abdominal pain, decreased oral intake
- Patient notes chronicity, unable to take Tylenol 2/2 liver [address]
- CT Head/Brain unremarkable.
4. Type 2 DM with hyperglycemia on admission
- BS 560 on admission
- On sliding scale
- CHO diet, Lantus 18 units
- Aspart 10 units with meals
- Await DM WIND DEVELOPMENT DIRECTOR reccs
5. Anemia of Chronic Disease
- Stable (11.6), continue to monitor.
6. Hyponatremia (Resolved)
- 138 today, continue to monitor.
7. 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
- Continue tacrolimus, mycophenolate
8. Chronic right hip pain
9. Chronic back pain
- Continue gabapentin
- D/c with Baclofen
10. CAD status post stents
- Continue metoprolol
- Continue aspirin
11. Bilateral lower extremity DVT with IVC filter
12. BPH status post TURP
13. Former smoker
14. Severe calcific atherosclerotic plaque in abdominal aorta
15. Restless leg syndrome
- continue ropinirole
CODE STATUS: Full code
DVT prophylaxis: Heparin
Diet: Diabetic Diet
Anticipated Discharge: Today
Subjective/Interval History
-
Date of Service: February 07, 2025
Patient seen and examined this AM (late entry). Endorses continued abdominal pain, but improved diarrhea with no episodes overnight. Tolerating PO without issue, no nausea, no vomiting. States that he also has some back pain.
Objective Data
-
Labs:
Laboratory Results
02/07/25
10:02
WBC 6.4
Hgb 11.8 L
Hct 34.9 L
Plt Count 125 L
Sodium 136
Potassium 3.8
Chloride 106
Carbon Dioxide 27
BUN 23 H
Creatinine 1.2
Glucose 119 H
Calcium 8.9
Vital Signs:
Vital Signs
Temp Pulse Resp BP Pulse Ox
98.5 F 82 16 125/75 100
02/07/25 07:34 02/07/25 08:33 02/07/25 07:34 02/07/25 08:33 02/07/25 07:34
I&O
02/06/25 02/07/25 02/08/25
06:59 06:59 06:59
Intake Total 540 / 540 1140 / 1140
Output Total 400 / 400
Balance 140 / 140 1140 / 1140
Review of Systems
-
History Source: Patient
All other systems: Reviewed and negative
Physical Exam
-
General: No Apparent Distress, Comfortable and Appears Chronically Ill
HEENT: Normocephalic, Atraumatic and Moist Mucous Membranes
Respiratory: Clear to Auscultation and Non Labored Respirations
Cardiac: Regular Rhythm and S1/S2
GI: Soft, Nondistended, Normal Bowel Sounds and Tender (mild lower abdomen bilaterally)
Neuro: Awake, Alert and Oriented
Psych: Calm
Data Reviewed
-
Labs: Labs Reviewed by me
[2025-02-07 13:38] LABS: Glucose - Point of Care 120 mg/dl (70-99)
[2025-02-07] MEDS: NOVOLOG FLEXPEN-LOW RESISTANCE SC (14:02)
--- NOTE | 2025-02-07 15:16 | CM ---
CM reviewed chart, attempted to see patient- patient d/c home, no needs.
Plan; home no needs
--- NOTE | 2025-02-07 16:44 | W.DCSUMMARY ---
Addendum entered and electronically signed by Charlene Beltran MD 02/08/25 08:17:
Attending�addendum:
I saw and evaluated the patient. I reviewed the resident�s note and agree with findings and plan as documented in the resident�s note.��patient seen and examined at bedside, patient continues to complain of lower abdominal pain, still with
significant diarrhea.
Stool studies been sent.
Physical�exam:
GENERAL : Patient is awake, alert, oriented x3
HEENT: Nonicteric sclerae, PERRLA, EOMI. Oropharynx clear. Moist mucous membranes. Conjunctivae appear well perfused.
CHEST: Chest wall is nontender.
HEART: Regular rate and rhythm without murmurs.
LUNGS: Clear to auscultation bilaterally.
ABDOMEN: Soft, positive bowel sounds, nontender, no organomegaly.
RECTAL: Deferred.
MUSCLES/EXTREMITIES: No abnormal range of motion, no swelling.SKIN: No rash, no excessive bruising, petechiae, or purpura.
NEUROLOGIC: Cranial nerves II-XII intact without motor/sensory deficit.
�
Assessment/plan:
Abdominal pain.
Appreciate GI input.
Status post biliary stent removal.
GI signed off
Weaned off Dilaudid.
-Complaining of diarrhea.
Stool studies pending
Back pain.
Will be discharged on baclofen
Type 2 diabetes.
Blood sugar better controlled
Status post liver/kidney transplant.
Continue tacrolimus/mycophenolate
CODE STATUS: Full code
DVT prophylaxis: Heparin
Diet: DM diet
Disposition: Discharge home today
�
Total time spent on today�s encounter was 51 minutes which included time spent in counseling the patient/family regarding diagnosis and treatment plan as listed above, goals of care, and symptom management. Case was discussed with nursing staff,
specialists, and care coordinators/case management. All labs and imaging personally reviewed by me. Remainder the time spent in detailed review of previous records, lab data, imaging, and other medical provider documentation.
Original Note:
Documented by User: Samuel Eli DO, Resident 02/07/25 17:47
Discharge Summary
Discharge Data
Date of Admission: 01/28/25
Date of Discharge: 02/07/25
Total time spent discharging patient (in min): 40
-
Pending Results: Yes
Additional Pending Results:
Salmonella Stool Culture
Shigella Stool Culture
Campylobacter Stool Culture
Shiga Toxin Test
Hospital Course
Bsuter Crawford is a 65 year old male with a past medical history of insulin-dependent diabetes mellitus, coronary artery disease, liver cirrhosis secondary to chronic hepatitis C status post liver transplant and kidney transplant, anemia of chronic
disease, bilateral lower extremity deep venous thrombi with IVC filter, benign prostatic hyperplasia status post transurethral resection of the prostate, history of C. difficile, chronic right hip pain, chronic back pain, former tobacco use who
presented to the emergency department with subacute lower abdominal pain worsening over the few days prior to presentation.
HISTORY OF PRESENT ILLNESS
On presentation patient complained of headaches and abdominal pain. The abdominal pain had been worsening over 4 to 5 day course and was aggravated by sitting up. The patient did not take anything at home for the pain. Additionally, patient
endorsed having 1 episode of diarrhea every morning during this period, occasionally with mucus. Patient also endorsed 1 episode of confusion. He denied fevers, chills, chest pain, shortness of breath, dizziness, syncope, nausea, vomiting, or
urinary symptoms. Additionally, the patient had been recently admitted to Hospital from 01/09/2025 to 01/20/2025 for diverticulitis and cellulitis and at 1 point in the admission was found to have an obstructive pattern of liver function tests
notable for choledocholithiasis requiring ERCP twice. The first ERCP was notable for biliary sphincterotomy and a pancreatic stent placed. He had a second ERCP due to transaminitis with a sphincterotomy and placement of a common hepatic duct stent.
ED COURSE
Initial laboratory studies showed a blood sugar of 568 (the patient did not take his insulin on the day of presentation), a sodium of 125, and a potassium of 5.3. Liver function tests were not consistent with recurrent biliary obstruction or acute
pancreatitis from recent ERCP but did show an initial elevation to 1.4 with an alkaline phosphatase of 222. CT of the abdomen and pelvis in the emergency department showed an intact bile duct stent and moderate distention of the urinary bladder as
well as moderate fecal material throughout the colon. CT of the head performed for an episode of confusion prior to arrival, did not show any acute abnormalities. Although there was no laboratory or radiographic evidence of acute disease, the
patient was admitted for additional evaluation of abdominal pain. The patient was started on IV fluids and admitted for additional gastrointestinal evaluation.
HOSPITAL COURSE
Patient's initial hyperkalemia was corrected and the patient was started on bowel regimen for evidence of moderate fecal material on CT scan. Additionally, the patient's biliary stent was removed by the assembler carbon brushes. Additionally, the
patient's bowel regimen was increased however, the patient started to experience diarrhea. During this period, the patient's bowel regimen was held, and medication list was reviewed for agents that could cause diarrhea. The patient takes
mycophenolate which had to be continued, however he was also taking magnesium oxide. Given the patient's magnesium levels as well as other electrolytes were within normal range, the patient's magnesium oxide was discontinued. Additionally, patient
was given Imodium for diarrhea. Prior to this, stool studies were sent but had not resulted at the time of discharge. By the time of discharge, the patient is no longer having multiple episodes of diarrhea during the day. The patient did endorse
lower abdominal pain throughout the course of his admission and on the day of discharge. And etiology of this pain was not elucidated during the course of this admission. It was suggested that the patient should follow-up with an outpatient pain
retail management keyholder.
DISCHARGE RECOMMENDATIONS
Follow up with your primary care provider for additional recommendations.
The patient was discharged on a short course of Baclofen for unrelated muscle spasm.
The patient's insulin regimen was changed to Lantus 30 Units subcutaneously daily.
Mealtime insulin remains unchanged.
There are some stool studies pending at time of discharge.
The home medications dicyclomine and magnesium oxide were discontinued over the hospital course.
Follow-up with a assembler carbon brushes as directed.
Follow-up with anesthesia/pain management as directed.
Discharge Plan
-
Patient Disposition: Home (Routine Discharge)
Discharge Diagnosis/Procedures: Abdominal pain.
Diarrhea.
Diabetes
Diet: Diabetic, Carb Controlled
Activity: With assistance and As tolerated
Referrals:
Heath Villa MD [Active] - in two to three weeks
Referral Note: For pain management
Ellen Connors MD [Active, Gastroenterology] - in two to three weeks
Geneva Lantigua DO [Family Provider, Family Practice]
Prescriptions:
New
baclofen 5 mg tablet
5 mg PO TIDPRN PRN (Reason: muscle spasm) Qty: 30 0RF
Probiotic 15 billion cell capsule, sprinkle
1 cap PO DAILY Qty: 30 0RF
Continued
aspirin 81 mg Tablet,Delayed Release (Dr/Ec)
81 mg PO DAILY
ropinirole 0.25 mg Tablet
0.5 mg PO HS 30 Days Qty: 60 0RF
mycophenolate sodium 180 mg Tablet,Delayed Release (Dr/Ec)
180 mg PO Q12H@0800,2000 Qty: 60 1RF
gabapentin 100 mg capsule
300 mg PO BID
metoprolol succinate 25 mg Tablet Extended Release 24 Hr
12.5 mg PO DAILY Qty: 15 0RF
(DME) blood-glucose meter [Accu-Chek Guide Glucose Meter] Misc
Qty: 1 0RF
Rx Instructions:
As Directed
(DME) Accu-Chek Guide test strips Strip
Qty: 200 0RF
Rx Instructions:
As Directed
(DME) lancets [Accu-Chek Softclix Lancets] Misc
Qty: 200 0RF
Rx Instructions:
As Directed
(DME) pen needle, diabetic [1st Tier Unifine Pentips Plus] 32 gauge x ' needle
See Rx Instructions .Route Qty: 100 4RF
Rx Instructions:
As directed
tacrolimus 1 mg Capsule
3 mg PO Q12H@0800,2000 Qty: 180 1RF
insulin aspart U-100 100 unit/mL (3 mL) Insulin Pen
16 unit SC AC Qty: 15 4RF
pantoprazole 40 mg Tablet,Delayed Release (Dr/Ec)
40 mg PO BID 30 Days Qty: 60 2RF
dicyclomine 10 mg capsule
20 mg PO QID PRN (Reason: pain)
loperamide 2 mg Capsule
2 mg PO Q4HPRN PRN (Reason: diarrhea) 30 Days Qty: 90 0RF
Changed
insulin glargine [Lantus Solostar U-100 Insulin] 100 unit/mL (3 mL) insulin pen
30 unit SC DAILY Qty: 15 4RF
Discontinued
dicyclomine 10 mg Capsule
20 mg PO QID PRN (Reason: abdominal pain) Qty: 120 0RF
magnesium oxide 400 mg (241.3 mg magnesium) Tablet
400 mg PO DAILY Qty: 0 0RF
Discharge Orders:
Discharge Patient (As Directed); Ordered 02/07/25
Ordered By: Charlene Beltran
Discharge Date and Time
Discharge Date/Time: 02/07/25 15:10
Print Language: MARSHALLESE

Documented by User: Charlene Beltran MD 02/08/25 08:16
Discharge Summary
Discharge Data
Date of Admission: 01/28/25
Date of Discharge: 02/08/25
Discharge Plan
-
Patient Disposition: Home (Routine Discharge)
Discharge Diagnosis/Procedures: Abdominal pain.
Diarrhea.
Diabetes
Diet: Diabetic, Carb Controlled
Activity: With assistance and As tolerated
Referrals:
Heath Villa MD [Active] - in two to three weeks
Referral Note: For pain management
Ellen Connors MD [Active, Gastroenterology] - in two to three weeks
Geneva Lantigua DO [Family Provider, Family Practice]
Prescriptions:
New
baclofen 5 mg tablet
5 mg PO TIDPRN PRN (Reason: muscle spasm) Qty: 30 0RF
Probiotic 15 billion cell capsule, sprinkle
1 cap PO DAILY Qty: 30 0RF
Continued
aspirin 81 mg Tablet,Delayed Release (Dr/Ec)
81 mg PO DAILY
ropinirole 0.25 mg Tablet
0.5 mg PO HS 30 Days Qty: 60 0RF
mycophenolate sodium 180 mg Tablet,Delayed Release (Dr/Ec)
180 mg PO Q12H@0800,2000 Qty: 60 1RF
gabapentin 100 mg capsule
300 mg PO BID
metoprolol succinate 25 mg Tablet Extended Release 24 Hr
12.5 mg PO DAILY Qty: 15 0RF
(DME) blood-glucose meter [Accu-Chek Guide Glucose Meter] Misc
Qty: 1 0RF
Rx Instructions:
As Directed
(DME) Accu-Chek Guide test strips Strip
Qty: 200 0RF
Rx Instructions:
As Directed
(DME) lancets [Accu-Chek Softclix Lancets] Misc
Qty: 200 0RF
Rx Instructions:
As Directed
(DME) pen needle, diabetic [1st Tier Unifine Pentips Plus] 32 gauge x 5/32' needle
See Rx Instructions .Route Qty: 100 4RF
Rx Instructions:
As directed
tacrolimus 1 mg Capsule
3 mg PO Q12H@0800,2000 Qty: 180 1RF
insulin aspart U-100 100 unit/mL (3 mL) Insulin Pen
16 unit SC AC Qty: 15 4RF
pantoprazole 40 mg Tablet,Delayed Release (Dr/Ec)
40 mg PO BID 30 Days Qty: 60 2RF
dicyclomine 10 mg capsule
20 mg PO QID PRN (Reason: pain)
loperamide 2 mg Capsule
2 mg PO Q4HPRN PRN (Reason: diarrhea) 30 Days Qty: 90 0RF
Changed
insulin glargine [Lantus Solostar U-100 Insulin] 100 unit/mL (3 mL) insulin pen
30 unit SC DAILY Qty: 15 4RF
Discontinued
dicyclomine 10 mg Capsule
20 mg PO QID PRN (Reason: abdominal pain) Qty: 120 0RF
magnesium oxide 400 mg (241.3 mg magnesium) Tablet
400 mg PO DAILY Qty: 0 0RF
Discharge Orders:
Discharge Patient (As Directed); Ordered 02/07/25
Ordered By: Charlene Beltran
Discharge Date and Time
Discharge Date/Time: 02/07/25 15:10
Print Language: MARSHALLESE
== END 2025-02-07 15:10 | disposition home or self-care (01) | DRG 392 ==
LOC: 2 NORTH 12:39
PROVIDERS: Emergency Medicine; Hospitalist; Internal Medicine Gastroenterology; Nurse Practitioner Adult Health; Registered Nurse; ADMITTING PHYSICIAN Hospitalist; ATTENDING PHYSICIAN General Practice; EMERGENCY PHYSICIAN Emergency Medicine; FAMILY PHYSICIAN Family Medicine; OTHER PHYSICIAN Internal Medicine
PROC: 0FPB8DZ Removal of Intraluminal Device from Hepatobiliary Duct, Via Natural or Artificial Opening Endoscopic (ICD-10-PCS; 2025-01-29)
DX: R10.9 Unspecified abdominal pain (principal); Z94.4 Liver transplant status; Z59.00 Homelessness unspecified; K76.6 Portal hypertension; E87.1 Hypo-osmolality and hyponatremia; K80.51 Calculus of bile duct without cholangitis or cholecystitis with obstruction; D84.821 Immunodeficiency due to drugs; Z94.0 Kidney transplant status; R19.7 Diarrhea, unspecified; E11.65 Type 2 diabetes mellitus with hyperglycemia; I25.10 Atherosclerotic heart disease of native coronary artery without angina pectoris; R32 Unspecified urinary incontinence; B18.2 Chronic viral hepatitis C; N40.0 Benign prostatic hyperplasia without lower urinary tract symptoms; D63.8 Anemia in other chronic diseases classified elsewhere; K74.60 Unspecified cirrhosis of liver; F32.A Depression, unspecified; N32.89 Other specified disorders of bladder; R16.1 Splenomegaly, not elsewhere classified; K59.00 Constipation, unspecified; G89.29 Other chronic pain; M25.551 Pain in right hip; M54.9 Dorsalgia, unspecified; G25.81 Restless legs syndrome; E87.5 Hyperkalemia; Z79.82 Long term (current) use of aspirin; Z79.624 Long term (current) use of inhibitors of nucleotide synthesis; Z79.621 Long term (current) use of calcineurin inhibitor; Z79.4 Long term (current) use of insulin; Z95.828 Presence of other vascular implants and grafts; Z86.718 Personal history of other venous thrombosis and embolism; Z87.891 Personal history of nicotine dependence; Z95.5 Presence of coronary angioplasty implant and graft; Z90.79 Acquired absence of other genital organ(s); Z79.899 Other long term (current) drug therapy; Z90.49 Acquired absence of other specified parts of digestive tract; Z79.60 Long term (current) use of unspecified immunomodulators and immunosuppressants; Z46.59 Encounter for fitting and adjustment of other gastrointestinal appliance and device; Z87.19 Personal history of other diseases of the digestive system; Z86.79 Personal history of other diseases of the circulatory system
CPT/HCPCS: 70450; 74018; 74176; 80048; 80053; 81003; 81015; 82947; 82962; 83690; 83735; 85025; 85027; 85610; 87045; 87046; 87324; 87427; 87449; 89055; 96361; 96372; 96374; 96375; 97116; 97162; 99285

== ENCOUNTER 2025-02-14 23:55 | Observation (INO) | payer MEDICARE, OTHER, SELFPAY ==
[2025-02-14 16:42] VITALS: BMI 28.2
[2025-02-14 16:59] LABS: Hematocrit 37.1 % (39.0-52.0); Hemoglobin 13.1 g/dL (13.0-18.0); Mean Corp Hgb Conc. 35.3 g/dL (33.0-37.0); Mean Corpuscular Volume 84.9 fL (80.0-94.0); Nucleated Red Blood Cells % 0 % (-); Platelet Count 150 10^3/uL (130-400); Red Cell Dist. Width 15.0 % (11.5-14.5)
[2025-02-14 17:22] LABS: ALT (SGPT) 15 U/L (0-50); AST (SGOT) 17 U/L (17-59); Albumin 4.4 g/dl (3.5-5.0); Alkaline Phosphatase 85 U/L (38-126); Blood Urea Nitrogen 47 mg/dl (9-20); Calcium 8.8 mg/dl (8.4-10.2); Carbon Dioxide 24 mmol/L (22-30); Chloride 108 mmol/L (98-107); Glucose 102 mg/dl (70-99); Lipase 28 U/L (23-300); Potassium 4.3 mmol/L (3.5-5.1); Sodium 140 mmol/L (135-145); Total Protein 7.1 g/dl (6.3-8.2); eGFR 51.99
[2025-02-14 19:13] LABS: Glucose - Point of Care 133 mg/dl (70-99)
[2025-02-14 19:41] VITALS: BP 150/62
--- NOTE | 2025-02-14 20:11 | ED.GENMED ---
History of Present Illness
General
Chief Complaint: Abdominal Symptoms
Source: patient
Exam Limitations: none
Time Seen by Provider: 02/14/25 19:45
Nursing documentation reviewed up to this point in time: agreed with
History of Present Illness
History of Present Illness:
Patient is a 65-year-old male with history of insulin-dependent diabetes, CAD, liver transplant, renal transplant, DVT status post IVC filter who presents to the ER for evaluation of persistent diarrhea. Patient was admitted to the hospital for
similar symptoms however discharged roughly 1 week ago. He describes worsening diarrhea and persistent lower abdominal pain since discharge home. He states that he is having diarrhea up to 5 times per day. Today, he did notice some bloody mucus
mixed in with stool. He describes his stool as soft in consistency. He has not had 1 solid bowel movement since recent hospital admission.
He has mild nausea however denies any episode of vomiting. No fever or chills. No dysuria.
He saw his primary care referred him to the emergency department given persistent symptoms. He believes that something is wrong with 'his intestines'.
In addition, patient states that he stepped off the treadmill today and injured his right hip. He was briefly afraid that it was 'dislocated'. He has been able to bear weight and ambulated into the emergency department. He has a history of hip
fracture on the right side which was repaired.
Past History
Past History
ED Past Medical History: IDDM, Renal failure and Other (BPH, hepatitis C)
ED Past Surgical History: Cardiac (For cardiac stents 2021), Urological and Other (Liver transplant, kidney transplant 2021)
Social History
Tobacco: Non-smoker
Alcohol: None
Drug: Former user
Personal: Single
Living: homeless
Review of Systems
Review of Systems
Allergies reviewed?: Yes
All Other Systems: ROS reviewed and negative except as documented in HPI and ROS
Phy Exam
Physical Exam
Physical Exam:
Vitals: Hypertensive, otherwise vital signs stable.
General: Patient is sitting on bed in no distress. Nontoxic in
Skin: Warm and dry, no rashes or lesions
Head: Normocephalic, atraumatic
Eyes: Sclera nonicteric.
Throat: Protecting airway
Neck: Normal ROM, no cervical spine tenderness, no meningismus
Cardiac: Regular rate and rhythm, no murmurs.
Pulm: Normal respiratory effort. Lungs clear bilaterally
Abdomen: Abdomen soft. Diffusely tender in lower abdomen. No rebound or guarding
Extremities: No obvious deformity of right lower extremity. Pain with internal/external rotation and reproducible tenderness of greater trochanter. RLE neurovascularly intact.
Neuro: AAOx3. Grossly intact.
Psychiatric: Normal affect.
Course
Orders/Labs/Results
Orders:
Orders
02/14/25 16:50
Complete Blood Count/With Diff Urgent
Comprehensive Metabolic Panel Urgent
Lipase Urgent
Magnesium Urgent
Comment: ADD ON
02/14/25 20:26
HYDROmorphone [Dilaudid] 0.5 mg IV NOW STA
02/14/25 20:27
Add On- LAB Urgent
Tests Added?: magnesium
02/14/25 20:28
0.9% Sodium Chloride 1000 ml [Nss] 1,000 ml IV BOLUS
02/14/25 20:45
Hip, Right 2-3 Views [CR Hip - RT w/wo Pel 2-3 Vw*] Urgent
Comment:
Reason For Exam: Right hip pain
Include a pelvis x-ray?: Yes
02/14/25 23:01
Admit/Transfer Patient As Directed
Co-Sign Provider:
Level of Care: Observation services
Assign to:: Medical/Surgical
Physician / Group: [email or web address]
Diagnosis: persistent dirreah and chr abdominal pain
02/14/25 23:03
Code Status As Directed
Resuscitation Status: Full Code
02/14/25 23:13
HYDROmorphone [Dilaudid] 0.25 mg IV NOW STA
02/14/25 23:50
STOOL [C difficile Antigen & Toxins] Urgent
MARIO Source: Feces/Stool
Specimen Description:
Date Specimen was Collected: 02/14/25
Time Specimen was Collected: 23:47
Stool Culture Urgent
MARIO Source: Feces/Stool
Specimen Description:
Date Specimen was Collected: 02/14/25
Time Specimen was Collected: 23:47
Abnormal Lab Results
02/14/25 02/14/25
16:50 19:11
RBC 4.37 L 10^6/uL
(4.70-6.10)
Hct 37.1 L %
(39.0-52.0)
RDW 15.0 H %
(11.5-14.5)
Abs Immat Gran (auto) 0.1 H 10^3/uL
(0-0.05)
Immature Gran % 0.6 H %
(0-0.5)
Lymphocytes % 16.9 L %
(20.5-51.1)
Chloride 108 H mmol/L
(98-107)
BUN 47 H mg/dl
(9-20)
Creatinine 1.5 H mg/dL
(0.7-1.3)
Glucose 102 H mg/dl
(70-99)
POC Glucose 133 H mg/dl
(70-99)
02/14/25 16:50
02/14/25 16:50
Vital Signs
Initial and Last Documented VS:
Initial Vital Signs
Temp Pulse Resp Pulse Ox
97.5 F 94 18 99
02/14/25 16:43 02/14/25 16:43 02/14/25 16:43 02/14/25 16:43
Last Documented Vital Signs
Temp Pulse Resp BP Pulse Ox
98 F 64 18 150/62 98
02/14/25 19:41 02/14/25 19:41 02/14/25 19:41 02/14/25 19:41 02/14/25 20:13
MDM/Problems Addressed
Differential Diagnosis Includes:
Not limited to: Colitis, diverticulitis, C. difficile, inflammatory bowel disease, acute dehydration, constipation, etc.
MDM/Problems Addressed:
65-year-old male with persistent lower abdominal pain and intractable diarrhea. No associated fevers, urinary symptoms. Recent admission for similar however he reports progressive worsening symptoms since discharge home. He is not taking any
laxatives. He did take Imodium once this past week. He reports significant weakness secondary to persistent diarrhea and concerned that he may fall at home.
Vitals as above. On exam, patient appears uncomfortable however nontoxic. Abdomen is soft with diffuse tenderness in lower abdomen. Cardio/pulmonary assessment unremarkable. No obvious deformity of right lower extremity.
There does not seem to be an acute change in abdominal pain. He has had 3 CTs of his abdomen/pelvis and 1 MRI within the past month for similar symptoms. There have not been any acute findings. Do not feel repeat imaging at this time would be
helpful. Unclear etiology of symptoms however he does have history of C. difficile and current risk factors given recent hospitalization. At this point�will plan to check labs, stool cultures and give IV fluids/pain control. Will obtain x-ray of
right hip given new pain.
Update: CBC unremarkable. Chemistry reveals mild renal insufficiency likely secondary to GI losses. Otherwise labs unremarkable. Magnesium normal. My individual interpretation of x-ray of right hip shows no acute fracture.
Patient has been unable to provide stool sample since arrival to ED. Patient will require admission to hospital given intractable diarrhea with worsening weakness at home. However, given no leukocytosis�will plan to hold off on additional imaging
at this time. Patient excepted to hospitalist service in stable condition.
Chronic conditions affecting care:
Insulin-dependent diabetes, prior liver and kidney transplant
Acute Exacerbation and/or Progression of Chronic Illness:
N/A
*Pulse Oximetry
SaO2: 98
Oxygen Mode of Delivery: Room air
Patient hypoxic: no
*EKG
Interpreted by ED Provider?: NA
*Airplane Flight Attendant Interpretation
Rate: Airplane Flight Attendant- N/A
*Critical Care Note
Total Time (30-74mins, 75-104mins- exclusive of procedures): Not Applicable
Data Reviewed
Review of Other/Old Records Reveals: Discharge Summary (Discharge summary from 02/07/2025 after admission for hyperglycemia and diarrhea)
Patient Management
Discussion with other providers: Hospitalist
ED Attending Note
-
Portions of this chart may have been created with voice recognition software.� Occasional wrong word or��sound alike� substitutions may have occurred due to the inherent limitations of voice recognition software.
Discharge Plan
Departure
Patient Disposition: Admit
Date of Disposition: 02/14/25
Time of Disposition: 22:21
Presentation/result/management discussed w/ accepting MD/DO: Hospitalist
Discharge Problem:
Intractable diarrhea, Weakness, Mild renal insufficiency
Interventions
Interventions:
*Risk Screen - Suicide Last Done: 02/14/25 19:33
*General Assessment Last Done: 02/14/25 19:33
*Neglect/Abuse Screening Last Done: 02/14/25 19:33
*ED- Fall Risk Assessment Last Done: 02/14/25 19:33
*ED COVID-19 Vaccine History Last Done: 02/14/25 19:33
*ED Influenza Vaccine History Last Done: 02/14/25 19:33
*Nursing Disposition Last Done: 02/15/25 00:41
SL-Yeedjj-Nkidysvzsm Assessment Last Done: 02/14/25 19:36
[2025-02-14 21:16] LABS: Magnesium 2.2 mg/dl (1.6-2.3)
[2025-02-14] MEDS: DILAUDID 0.5 MG IV (21:18)
[2025-02-14] MEDS: NSS 1000 IV (21:20)
--- NOTE | 2025-02-14 22:49 | HPS.HSE ---
Family Physician
-
Family Physician: UMA DYSON
Chief Complaint
-
persistent dirrhea
History of Present Illness
I could not get any information from the patient as�
Information gathered by chart review and speaking with the ER staff.
HPI
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
- evaluation of persistent diarrhe and worsening lower abdominal pain since discharge home.
- up to 5 times per day
- Today, he did notice some bloody mucus mixed in with stool.
- mild nausea however denies any episode of vomiting. No fever or chills. No dysuria.
He saw his primary care referred him to the emergency department given persistent symptoms.
In addition, patient states that he stepped off the treadmill today and injured his right hip.
He was briefly afraid that it was 'dislocated'.
He has been able to bear weight and ambulated into the emergency department.
HX hip fracture on the right side which was repaired.
Medical History
Past Medical History
Past Medical History: Reports Other
Additional Past Medical History:
depression, type 2 DM , cirrhois of liver
Past Surgical History: Reports Other
Additional Past Surgical History:
liver and kidney transplant
Social History
Tobacco: Former Smoker
Alcohol: None
Drug: None
Family History
Family History: Not pertinent
Allergies / Home Medications
Allergies reflects when Allergies were last updated in [facility].
Home Medications with original date entered in [facility]
Allergy/Medication List:
Allergies
Allergy/AdvReac Type Severity Reaction Status Date / Time
No Known Allergies Allergy Verified 01/27/25 15:51
Home Medications
aspirin 81 mg tablet,delayed release 81 mg PO DAILY Blood Clot Prevention/Tx 08/15/23
loperamide 2 mg capsule 2 mg PO Q4HPRN PRN diarrhea 1 month #90 caps 06/30/24
ropinirole 0.25 mg tablet 0.5 mg (2 x 0.25 mg) PO HS restless legs 1 month #60 tabs 06/30/24
mycophenolate sodium 180 mg tablet,delayed release 180 mg PO Q12H@08 Kidney transplant #60 tabs 07/08/24
gabapentin 100 mg capsule 300 mg PO BID Pain 08/06/24
metoprolol succinate 25 mg tablet,extended release 24 hr 12.5 mg (1/2 x 25 mg) PO DAILY #15 tabs 08/08/24
blood sugar diagnostic (Accu-Chek Guide test strips) #200 ea 01/13/25
blood-glucose meter (Accu-Chek Guide Glucose Meter) #1 ea 01/13/25
dicyclomine 10 mg capsule 20 mg (2 x 10 mg) PO QID PRN abdominal pain #120 caps 01/13/25
lancets (Accu-Chek Softclix Lancets) #200 ea 01/13/25
magnesium oxide 400 mg (241.3 mg magnesium) tablet 400 mg PO DAILY #0 tabs 01/13/25
pen needle, diabetic 32 gauge x 5/32' (1st Tier Unifine Pentips Plus) #100 ea 01/13/25
tacrolimus 1 mg capsule, immediate-release 3 mg (3 x 1 mg) PO Q12H@ kidney transplant #180 caps 01/13/25
insulin aspart U-100 100 unit/mL (3 mL) subcutaneous pen 16 unit (0.16 mL) SC AC #15 mL 01/20/25
insulin glargine 100 unit/mL (3 mL) subcutaneous pen (Lantus Solostar U-100 Insulin) 35 unit (0.35 mL) SC DAILY #15 mL 01/20/25
pantoprazole 40 mg tablet,delayed release 40 mg PO BID 30 days #60 tabs 01/20/25
Review of Systems
-
Constitutional: Reports No Symptoms
EENT: Reports No Symptoms
Respiratory: Reports No Symptoms
Cardiac: Reports No Symptoms
Abdomen/GI: Reports See HPI, Abdominal Pain, Nausea and Diarrhea
: Reports No Symptoms
Musculoskeletal: Reports No Symptoms
Skin: Reports No Symptoms
Neurological: Reports Headache
Endocrine: Reports No Symptoms
Hematologic/Lymphatic: Reports No Symptoms
Psych: Reports No Symptoms
Physical Exam
Vital Signs
Vital Signs
Temp Pulse Resp BP Pulse Ox
98 F 64 18 150/62 98
02/14/25 19:41 02/14/25 19:41 02/14/25 19:41 02/14/25 19:41 02/14/25 20:13
Physical Exam
General: Well Developed, Well Nourished and No Apparent Distress
HEENT: NormoCephalic, Moist mucous membranes and Atraumatic
Respiratory: Clear
Cardiac: S1/S2 and Regular Rhythm; No Murmur or Rub
GI: Soft, Non Distended, Normal Bowel Sounds and Tender; No Organomegaly
Rectal: Deferred by Provider
Musculoskeletal: No Clubbing, No Cyanosis and No Edema
Skin: No Rash
Neuro: AO x 3 and Nonfocal/grossly intact
Psych: Calm
Laboratory Results
-
02/14/25 16:50
02/14/25 16:50
Laboratory Results
Total Bilirubin 1.2 mg/dl (0.2-1.3) 02/14/25 16:50
AST 17 U/L (17-59) 02/14/25 16:50
ALT 15 U/L (0-50) 02/14/25 16:50
Alkaline Phosphatase 85 U/L (38-126) 02/14/25 16:50
Lipase 28 U/L (23-300) 02/14/25 16:50
Data Reviewed
-
Diagnostic Radiology: Other (pending Hip XR )
Lab Data: Labs Reviewed by me
Old Records: Reviewed
Impression/Plan
-
Vital Signs
Temp Pulse Resp BP Pulse Ox
98 F 64 18 150/62 98
02/14/25 19:41 02/14/25 19:41 02/14/25 19:41 02/14/25 19:41 02/14/25 20:13
Laboratory Tests
02/07/25 02/14/25
10:02 16:50
WBC 7.7
Hgb 13.1
Plt Count 150
BUN 23 H 47 H
Creatinine 1.2 1.5 H
eGFR > 60.00 51.99
01/27/25 CT Abd/pel Without Iv Or Oral
1. RIGHT UPPER QUADRANT LIVER TRANSPLANT in place.
2. Plastic stent in the bile duct extending into the duodenum.
3. Moderate splenomegaly secondary to chronic portal hypertension.
4. Severe chronic bilateral atrophy of the [place] kidneys.
5. LEFT LOWER QUADRANT RENAL TRANSPLANT in place with moderate to severe chronic distention of the left intrarenal collecting system.
6. Moderate distention of the urinary bladder.
7. Moderate amount of fecal material throughout the colon (possibly CONSTIPATION).
8. Severe calcific atherosclerotic plaque in the abdominal aorta.
9. IVC filter in place.
10. Mild colonic diverticulosis.
ERCP on last admission
- removal of sludge and plastic stent placement in common hepatic duct.
- S/p biliary stent removal this admission 01/29
Last hospitalist admission: 01/28/25 -02/07/25
ASSESSMENT & PLAN
Pending Rx reconciliation
Persistent diarrhea with mucous and blood + chronic Abdominal Pain of Unclear Etiology
Prior GI consulted, felt that the acute issues could be mitigated by bowel regimen
- Full liquid diet
- Bowel regimen held 2/2 diarrhea; unclear if iatrogenic or 2/2 overflow.
- IVF
- FU stool Cx and C Diff
- Hold off CT AP unless any chage in clinical state
- GI consult
ROXY due to diarrheal loss and vol contraction
- IV NS
- Trend Cr
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
- Continue tacrolimus, mycophenolate
IDDM
- ISS low
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
Anemia of Chronic Disease
- Hgb 13 suspect hemoconcentrated
Chronic right hip pain
- FU XR
Chronic back pain
- Continue gabapentin
HX CAD status post stents
- Continue metoprolol
- Continue aspirin
HX Bilateral lower extremity DVT with IVC filter
HX BPH status post TURP
HX Severe calcific atherosclerotic plaque in abdominal aorta
HX Restless leg syndrome: continue ropinirole
DVT Px: CSD
Code: Full
OBS MS
[2025-02-14] MEDS: DILAUDID 0.25 MG IV (23:44)
[2025-02-15 00:25] LABS: Urine Character Clear (Clear)
[2025-02-15 00:41] VITALS: BP 145/64
[2025-02-15 00:56] VITALS: BP 169/92
[2025-02-15 00:57] VITALS: BMI 25.8
[2025-02-15 01:22] LABS: Urine Red Blood Cell 21-25 /HPF (0-2); Urine White Cell 0-2 /HPF (0-5)
[2025-02-15] MEDS: NSS 1000 IV (01:25)
--- NOTE | 2025-02-15 01:42 | PTCARENOTE ---
[facility]. Pt amble to ambulate from stretcher to bed with clutching o furniture and law. Patient usually independent but his hip causes him some pain. I initiated the admission questions and explained to pt that since
he fell last admission, he required a bed alarm. Patient became agitated and said he would leave. I told him that was his choice. I said I would document the refusal abut insisted he use the call parsad if and when he got up to use the bathroom.
patient is oriented and said he would call. Pt has call prasad within reach. Pt assessed and vitals obtained/ see chart. Will continue to monitor. patient is NOT on a bed alarm at this time.
[2025-02-15] MEDS: DILAUDID 0.25 MG IV ×5 (05:27→22:52)
[2025-02-15 07:00] VITALS: BP 161/95
[2025-02-15 08:14] LABS: Hematocrit 34.0 % (39.0-52.0); Hemoglobin 11.8 g/dL (13.0-18.0); Mean Corp Hgb Conc. 34.7 g/dL (33.0-37.0); Mean Corpuscular Volume 86.1 fL (80.0-94.0); Nucleated Red Blood Cells % 0 % (-); Platelet Count 121 10^3/uL (130-400); Red Cell Dist. Width 14.8 % (11.5-14.5)
[2025-02-15 08:46] LABS: ALT (SGPT) 14 U/L (0-50); AST (SGOT) 15 U/L (17-59); Albumin 3.7 g/dl (3.5-5.0); Alkaline Phosphatase 84 U/L (38-126); Blood Urea Nitrogen 40 mg/dl (9-20); Calcium 8.5 mg/dl (8.4-10.2); Carbon Dioxide 22 mmol/L (22-30); Chloride 109 mmol/L (98-107); Estimated Creatinine Clearance 71 ml/min; Glucose 211 mg/dl (70-99); Potassium 4.4 mmol/L (3.5-5.1); Sodium 135 mmol/L (135-145); Total Protein 6.4 g/dl (6.3-8.2); eGFR > 60.00
[2025-02-15] MEDS: NOVOLOG FLEXPEN-LOW RESISTANCE SC ×2 (08:53→12:59)
[2025-02-15] MEDS: NOVOLOG FLEXPEN SC ×2 (09:00→12:58)
[2025-02-15] MEDS: VISBIOME PO (09:03)
[2025-02-15] MEDS: LANTUS 0.15 UNITS SC (09:04)
[2025-02-15] MEDS: MYFORTIC DELAYED REL. PO (09:04)
[2025-02-15] MEDS: PROGRAF 3 MG PO ×2 (09:04→20:58)
[2025-02-15 09:39] LABS: Glycohemoglobin (HgbA1c) 7.8 % (4.0-5.9)
--- NOTE | 2025-02-15 12:51 | W.PN.HOSP.TC ---
Today's Communication/Plan
-
Monitor vital signs see plan
Monitor bowel movement
Stool studies
Check bladder scan
Assessment / Plan
Assessment / Plan
General: Well Developed, Well Nourished and No Apparent Distress
HEENT: NormoCephalic, Moist mucous membranes and Atraumatic
Respiratory: Clear
Cardiac: S1/S2 and Regular Rhythm; No Murmur or Rub
GI: Soft, Non Distended, Normal Bowel Sounds and Tender
Musculoskeletal: No Edema
Neuro: AO x 3 and Nonfocal/grossly intact
Psych: Calm
Persistent diarrhea with mucous and + chronic Abdominal Pain of Unclear Etiology
per RN there is no blood in stool but does have diarrhea
Prior GI consulted, felt that the acute issues could be mitigated by bowel regimen
- Full liquid diet for now
- Bowel regimen held 2/2 diarrhea; unclear if iatrogenic or 2/2 overflow.GI consulted
cdiff neg; other cx pending
- Hold off CT AP unless any change in clinical state
per patient imodium wasnt working earlier.
ROXY due to diarrheal loss and vol contraction
- IV NS
- Trend Cr
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
- Continue tacrolimus, mycophenolate
IDDM
- ISS low
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
Anemia of Chronic Disease
monitor
Chronic right hip pain
no fx on xray
Chronic back pain
- Continue gabapentin
HX CAD status post stents
- Continue metoprolol
- Continue aspirin
HX Bilateral lower extremity DVT with IVC filter
HX BPH status post TURP
HX Severe calcific atherosclerotic plaque in abdominal aorta
HX Restless leg syndrome: continue ropinirole
DVT Ppx: heparin
Code: Full
Anticipated Discharge: 24 - 48 hours
Subjective/Interval History
-
Date of Service: February 15, 2025
Still a loose stool
Objective Data
-
Labs:
Laboratory Results
02/15/25
07:58
WBC 6.5
Hgb 11.8 L
Hct 34.0 L
Plt Count 121 L
Sodium 135
Potassium 4.4
Chloride 109 H
Carbon Dioxide 22
BUN 40 H
Creatinine 1.1
Glucose 211 H
Calcium 8.5
Total Bilirubin 1.4 H
AST 15 L
ALT 14
Alkaline Phosphatase 84
Vital Signs:
Vital Signs
Temp Pulse Resp BP Pulse Ox
98.1 F 90 16 161/95 98
02/15/25 07:00 02/15/25 07:00 02/15/25 07:00 02/15/25 07:00 02/15/25 07:00
I&O
02/14/25 02/15/25 02/16/25
06:59 06:59 06:59
Intake Total 720 / 720
Output Total 1450 / 1450
Balance -730 / -730
--- NOTE | 2025-02-15 12:55 | CON.GI ---
Consultation
-
Date/Time Consultation Requested: 02/15/2025
Date/Time Consultation Performed: 02/15/2025
Performing Provider: Marco Antonio Villalobos
Reason for Consultation: diarrhea
Medical History
Chief Complaint / HPI
Chief Complaint: diarrhea
History of Present Illness:
The patient is a 64 year old male with h/o HCV cirrhosis with prior liver/kidney transplant at [facility] in 2021 on mycophenolate (reduced his dose to one daily, although per patient was told to stop in June by [facility] for possible mycophenolate
diarrhea) and tacrolimus, c-diff post transplant, hx Esophageal varices, CAD with prior stenting, IDDM, DVT with filter, prior foot infections who p/w diarrhea. He reports ongoing watery diarrhea for past 2 weeks since d/c home. Review of records
show he was admitted several times past spring with concern for diarrhea with complete workup for diarrhea in past including stool fat neg, fecal calpro normal, and elastase 266 which ruled out pancreatic insufficiency. Last colonoscopy 06/2024-
fair prep, hemorrhoids, stool in entire colon, diverticulosis, bx neg CVM and microscopic colitis. Eventually patient went to [facility] where it was recommended that he stop his mycophenolate for possible mycophenolate induced diarrhea but pt
decided to decreased dose with improvement. Pt also with recent admission 01/09- 01/20 with abdominal pain and diarrhea. CT with concern for proctocolitis, mild diverticulitis at the junction of the distal descending colon proximal sigmoid colon,
mild to moderate colonic fecal burden,central lucency of the prostate gland suggesting a TURP defect versus central gland prostatic cyst. Pt was given antibiotics then had rise in LFT's with further follow up imaging concern for choledocholithiasis.
He completed EUS and ERCP x 2 during admission and had repeat CT with improvement.
Past Medical History
Past Medical History: CAD, IDDM and Other
Past Surgical History: Cardiac, Orthopedic and Other
Social History
Tobacco: Non-Smoker
Alcohol: None
Allergies / Home Medications
Allergy/AdvReac Type Severity Reaction Status Date / Time
No Known Allergies Allergy Verified 01/27/25 15:51
�Medication �Instructions �Recorded
aspirin 81 mg tablet,delayed 81 mg PO DAILY Blood Clot 08/15/23
release Prevention/Tx
ropinirole 0.25 mg tablet 0.5 mg (2 x 0.25 mg) PO HS 06/30/24
restless legs 1 month #60 tabs
mycophenolate sodium 180 mg 180 mg PO Q12H@0800,1999 Kidney 07/08/24
tablet,delayed release transplant #60 tabs
gabapentin 100 mg capsule 300 mg PO BID Pain 08/06/24
metoprolol succinate 25 mg 12.5 mg (1/2 x 25 mg) PO DAILY #15 08/08/24
tablet,extended release 24 hr tabs
blood sugar diagnostic (Accu-Chek #200 ea 01/13/25
Guide test strips)
blood-glucose meter (Accu-Chek #1 ea 01/13/25
Guide Glucose Meter)
lancets (Accu-Chek Softclix #200 ea 01/13/25
Lancets)
pen needle, diabetic 32 gauge x #100 ea 01/13/25
' (1st Tier Unifine Pentips
Plus)
tacrolimus 1 mg capsule, 3 mg (3 x 1 mg) PO Q12H@0800,199901/13/25
immediate-release kidney transplant #180 caps
insulin aspart U-100 100 unit/mL 16 unit (0.16 mL) SC AC #15 mL 01/20/25
(3 mL) subcutaneous pen
pantoprazole 40 mg tablet,delayed 40 mg PO BID 30 days #60 tabs 01/20/25
release
dicyclomine 10 mg capsule 20 mg PO QID PRN pain 01/27/25
baclofen 5 mg tablet 5 mg PO TIDPRN PRN muscle spasm 02/07/25
#30 tabs
insulin glargine 100 unit/mL (3 30 unit (0.3 mL) SC DAILY #15 mL 02/07/25
mL) subcutaneous pen (Lantus
Solostar U-100 Insulin)
lactobacillus combo no.11 15 1 cap PO DAILY #30 caps 02/07/25
billion cell sprinkle capsule
(Probiotic)
loperamide 2 mg capsule 2 mg PO Q4HPRN PRN diarrhea 1 02/07/25
month #90 caps
Review of Systems
Vital Signs
Temp Pulse Resp BP Pulse Ox
98.1 F 90 16 161/95 98
02/15/25 07:00 02/15/25 07:00 02/15/25 07:00 02/15/25 07:00 02/15/25 07:00
Physical Exam
Exam
General: Well Developed and Well Nourished
HEENT: Normocephalic
Respiratory: Clear
Cardiac: S1/S2
GI: Soft, Non Tender, Non Distended and Normal Bowel Sounds
Results
WBC 6.5 10^3/uL (4.8-10.8) 02/15/25 07:58
Hgb 11.8 g/dL (13.0-18.0) L 02/15/25 07:58
Hct 34.0 % (39.0-52.0) L 02/15/25 07:58
MCV 86.1 fL (80.0-94.0) 02/15/25 07:58
Plt Count 121 10^3/uL (130-400) L 02/15/25 07:58
Absolute Neuts (auto) 4.8 10^3/uL (1.4-6.5) 02/15/25 07:58
Sodium 135 mmol/L (135-145) 02/15/25 07:58
Potassium 4.4 mmol/L (3.5-5.1) 02/15/25 07:58
Chloride 109 mmol/L (98-107) H 02/15/25 07:58
Carbon Dioxide 22 mmol/L (22-30) 02/15/25 07:58
BUN 40 mg/dl (9-20) H 02/15/25 07:58
Creatinine 1.1 mg/dL (0.7-1.3) 02/15/25 07:58
Calcium 8.5 mg/dl (8.4-10.2) 02/15/25 07:58
Total Bilirubin 1.4 mg/dl (0.2-1.3) H 02/15/25 07:58
AST 15 U/L (17-59) L 02/15/25 07:58
ALT 14 U/L (0-50) 02/15/25 07:58
Alkaline Phosphatase 84 U/L (38-126) 02/15/25 07:58
Lipase 28 U/L (23-300) 02/14/25 16:50
Diagnostic Image Results:
Prior GI Procedures:
EGD:
Colonoscopy (06/2024):
Impression: - Preparation of the colon was fair.
- Hemorrhoids found on perianal exam.
- The examined portion of the ileum was normal.
- Stool in the entire examined colon.
- Diverticulosis in the sigmoid colon, in the
descending colon and in the ascending colon.
- Biopsies were taken to exclude microscopic colitis /
CMV colitis.
- Internal hemorrhoids.
Assessment / Plan
-
64 year old male with h/o HCV cirrhosis with prior liver/kidney transplant at [facility] in 2021 on mycophenolate (reduced his dose to one daily, although per patient was told to stop in June by [facility] for possible mycophenolate diarrhea) and
tacrolimus, c-diff post transplant, hx Esophageal varices, CAD with prior stenting, IDDM, DVT with filter, prior foot infections who p/w diarrhea.
Impression / Rec:
1. Diarrhea - chronic. He was admitted and was evaluated for persistent diarrhea in the past, including -ve stool fat, fecal calpro normal, and elastase 266 which ruled out pancreatic insufficiency. Last colonoscopy 06/2024 with fair prep,
hemorrhoids, stool in entire colon, diverticulosis, bx neg CVM and microscopic colitis. Eventually seen in [facility] and was told to stop his mycophenolate but he decided to decreased dose instead with some improvement. He was recently here about 2
weeks ago for abdo pain, moderate stool burden noted, and was given laxative which started his diarrhea, and had been having persistent diarrhea since. No blood. Repeat C diff -ve. Repeat stool studies pending. The etiology is unclear. He also
has been receiving dilaudid during admissions. Will check stool electrolytes/osmolality +/- laxative screen.
Total Time Spent with Patient (in minutes): 55
-
-
Thank you for consultation and allowing me to participate in the patient's care. Please call the post acute care nurse practitioner GI physician during the after hours with any questions or concerns.
--- NOTE | 2025-02-15 12:59 | PTCARENOTE ---
pt refusing BG check. Dr Healy made aware. Pt does not want to have lunch so will not receive insulin.
[2025-02-15 13:13] LABS: Glucose - Point of Care 239 mg/dl (70-99)
[2025-02-15] MEDS: ASPIR LOW (ENTERIC COATED) 81 MG PO (13:17)
[2025-02-15] MEDS: NEURONTIN 300 MG PO ×2 (13:17→20:54)
[2025-02-15] MEDS: NOVOLOG FLEXPEN-LOW RESISTANCE 2 UNITS SC (14:18)
[2025-02-15] MEDS: NSS IV (14:24)
[2025-02-15 16:03] VITALS: BP 143/90
[2025-02-15 17:51] LABS: Glucose - Point of Care 252 mg/dl (70-99)
[2025-02-15] MEDS: NOVOLOG FLEXPEN-LOW RESISTANCE 3 UNITS SC (17:52)
[2025-02-15] MEDS: NOVOLOG FLEXPEN 10 UNITS SC (17:53)
[2025-02-15] MEDS: IMODIUM 2 MG PO (18:40)
[2025-02-15] MEDS: MYFORTIC DELAYED REL. 180 MG PO (20:58)
[2025-02-15 21:23] LABS: Glucose - Point of Care 331 mg/dl (70-99)
--- NOTE | 2025-02-15 22:13 | PTCARENOTE ---
Patient c/o 11/17 pain to abdomen and requesting dose of Dilaudid. Per dayshift RN - patient has been given one time doses of Dilaudid throughout shift, requiring dose approx every 4 hours, MDs are aware and will not order PRN at this time. Notified
ALTON Gamez of pain and patient request for Dilaudid -- one time dose ordered and requested that this RN educate patient on Dilaudid adding to his risk of fecal burden that he has had in the past. Reviewed with patient, patient states he is not
interested and is aware. Dose provided, see MAR. Call prasad in reach, will monitor.
[2025-02-15 23:00] VITALS: BP 144/82
--- NOTE | 2025-02-15 23:05 | PTCARENOTE ---
Blood sugar 331 at HS check this evening. Patient inquiring on Lantus dosing and states that he knows his own body and if he does not get Lantus tonight, he knows he will be in the 400s in the morning. Patient received Lantus this morning, as orders
are for 0800am, instead of the usual HS timing. ALTON Gamez notified, one time dose Novolog 4 units ordered and provided, see MAR. Patient encouraged to have discussion with MD in the morning regarding timing of Lantus. Will monitor.
[2025-02-15] MEDS: NOVOLOG FLEXPEN 4 UNITS SC (23:22)
--- NOTE | 2025-02-16 02:00 | W.PN.UPDATE ---
Update Note
Progress Note Update
Patient c/o 11/17 abdomen pain, stating he is having loose stool, witnessed loose brown stool 1x by RN.
Dilaudid 0.25mg IVx2 given 4 hours apart
Patient insisted to see BODILY INJURY ADJUSTER, patient angry, yelling at this BODILY INJURY ADJUSTER insisting I should order frequent Dilaudid. Patient refusing to be assessed at this time.
addressed the side effects and offered different pain medications. Patient continuos to request Dilaudid IV.
Will order one time Dilaudid 0.25 mg IV.
stable VS
--- NOTE | 2025-02-16 02:33 | PTCARENOTE ---
Patient refusing to have blood sugar rechecked following one time Novolog administration for glucose of 331. Patient states 'No, it is too late, you're not doing that right now.' INVENTORY MANAGEMENT SPECIALIST aware.
--- NOTE | 2025-02-16 02:34 | PTCARENOTE ---
BUSINESS EXCELLENCE LEADER request to have blood sugar rechecked following 4 units Novolog administration. Patient refusing to have blood sugar checked at this time and states 'No, it's too late, you're not doing that now.' BUSINESS EXCELLENCE LEADER aware. Will monitor.
[2025-02-16] MEDS: DILAUDID 0.25 MG IV (04:55)
[2025-02-16] MEDS: FLUSH (NSS) 1 FLUSH IV (04:56)
[2025-02-16 06:00] VITALS: BMI 25.1
[2025-02-16 07:53] LABS: Glucose - Point of Care 204 mg/dl (70-99)
[2025-02-16 08:07] VITALS: BP 146/89
[2025-02-16] MEDS: VISBIOME 1 CAP PO (08:41)
[2025-02-16] MEDS: PROGRAF 3 MG PO ×2 (08:41→20:54)
[2025-02-16] MEDS: ASPIR LOW (ENTERIC COATED) 81 MG PO (08:41)
[2025-02-16] MEDS: MYFORTIC DELAYED REL. PO (08:41)
[2025-02-16] MEDS: NEURONTIN 300 MG PO ×2 (08:41→20:54)
[2025-02-16] MEDS: LANTUS SC (08:42)
[2025-02-16] MEDS: NOVOLOG FLEXPEN-LOW RESISTANCE 2 UNITS SC ×2 (09:46→13:16)
[2025-02-16] MEDS: NOVOLOG FLEXPEN 10 UNITS SC ×3 (09:46→16:44)
[2025-02-16 10:30] LABS: Hematocrit 35.7 % (39.0-52.0); Hemoglobin 12.4 g/dL (13.0-18.0); Mean Corp Hgb Conc. 34.7 g/dL (33.0-37.0); Mean Corpuscular Volume 89.5 fL (80.0-94.0); Nucleated Red Blood Cells % 0 % (-); Platelet Count 121 10^3/uL (130-400); Red Cell Dist. Width 15.3 % (11.5-14.5)
[2025-02-16 10:36] LABS: Blood Urea Nitrogen 31 mg/dl (9-20); Calcium 8.8 mg/dl (8.4-10.2); Carbon Dioxide 22 mmol/L (22-30); Chloride 109 mmol/L (98-107); Estimated Creatinine Clearance 71 ml/min; Glucose 182 mg/dl (70-99); Potassium 4.3 mmol/L (3.5-5.1); Sodium 139 mmol/L (135-145); eGFR > 60.00
[2025-02-16] MEDS: ULTRAM 50 MG PO ×2 (11:19→20:53)
[2025-02-16 12:06] LABS: Glucose - Point of Care 208 mg/dl (70-99)
--- NOTE | 2025-02-16 12:12 | W.PN.HOSP.TC ---
Today's Communication/Plan
-
monitor vitals
See plan
Imodium
GI to see today
Tramadol
Assessment / Plan
Assessment / Plan
General: Well Developed, Well Nourished and No Apparent Distress
HEENT: NormoCephalic, Moist mucous membranes and Atraumatic
Respiratory: Clear
Cardiac: S1/S2 and Regular Rhythm; No Murmur or Rub
GI: Soft, Non Distended, Normal Bowel Sounds and Tender
Musculoskeletal: No Edema
Neuro: AO x 3 and Nonfocal/grossly intact
Psych: Calm
Persistent diarrhea with mucous and + chronic Abdominal Pain of Unclear Etiology
per RN there is no blood in stool but does have diarrhea
Prior GI consulted, felt that the acute issues could be mitigated by bowel regimen
-cw Full liquid diet for now
- Bowel regimen held 2/2 diarrhea; unclear if iatrogenic or 2/2 overflow.GI following
cdiff neg; other cx pending
- Hold off CT AP unless any change in clinical state, if symptoms do not improve then consider CT
Imodium as needed
In the past patient was recommended to stop mycophenolate however instead decreased it. I advised him to go to his transplant physician soon outpatient.
Patient tends to ask for Dilaudid intermittently which was the case of previous admission as well. Currently on tramadol.
ROXY due to diarrheal loss and vol contraction
Improving
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
- Continue tacrolimus, mycophenolate
IDDM
- ISS low
- c/w insulin. Patient tends to refuse management at times.
Anemia of Chronic Disease
monitor
Chronic right hip pain
no fx on xray
Chronic back pain
- Continue gabapentin
Thrombocytopenia likely secondary to cirrhosis
Monitor
HX CAD status post stents
- Continue metoprolol
- Continue aspirin
HX Bilateral lower extremity DVT with IVC filter
HX BPH status post TURP
HX Severe calcific atherosclerotic plaque in abdominal aorta
HX Restless leg syndrome: continue ropinirole
DVT Ppx: heparin
Code: Full
Anticipated Discharge: 24 - 48 hours
Subjective/Interval History
-
Date of Service: February 16, 2025
Denies nausea
Objective Data
-
Labs:
Laboratory Results
02/16/25
07:51
WBC 6.6
Hgb 12.4 L
Hct 35.7 L
Plt Count 121 L
Sodium 139
Potassium 4.3
Chloride 109 H
Carbon Dioxide 22
BUN 31 H
Creatinine 1.1
Glucose 182 H
Calcium 8.8
Vital Signs:
Vital Signs
Temp Pulse Resp BP Pulse Ox
97.5 F 84 16 146/89 99
02/16/25 08:07 02/16/25 08:07 02/16/25 08:07 02/16/25 08:07 02/16/25 08:07
I&O
02/15/25 02/16/25 02/17/25
06:59 06:59 06:59
Intake Total 720 / 720 480 / 480
Output Total 1450 / 1450 500 / 500 600 / 600
Balance -730 / -730 -500 / -500 -120 / -120
[2025-02-16] MEDS: IMODIUM 2 MG PO (12:24)
--- NOTE | 2025-02-16 14:59 | W.PN.GI.CBS2 ---
Today's Communication / Plan
-
check fecal magnesium
Assessment / Plan
-
64 year old male with h/o HCV cirrhosis with prior liver/kidney transplant at [facility] in 2021 on mycophenolate (reduced his dose to one daily, although per patient was told to stop in June by [facility] for possible mycophenolate diarrhea) and
tacrolimus, c-diff post transplant, hx Esophageal varices, CAD with prior stenting, IDDM, DVT with filter, prior foot infections who p/w diarrhea.
Diarrhea - chronic. He was admitted and was evaluated for persistent diarrhea in the past, including -ve stool fat, fecal calpro normal, and elastase 266 which ruled out pancreatic insufficiency. Last colonoscopy 06/2024 with fair prep,
hemorrhoids, stool in entire colon, diverticulosis, bx neg CVM and microscopic colitis. Eventually seen in [facility] and was told to stop his mycophenolate but he decided to decreased dose instead with some improvement. He was recently here about 2
weeks ago for abdo pain, moderate stool burden noted, and was given laxative which started his diarrhea, and had been having persistent diarrhea since. No blood. Repeat C diff -ve. Repeat stool studies pending. The etiology is unclear. He also
has been receiving dilaudid during admissions. Will check stool electrolytes/osmolality +/- laxative screen.
Started on imodium, diarrhea slowing down. Stool osmolality/electrolytes are not available in our lab. Ry send for stool Magnesium (send out).
Total Time Spent with Patient (in minutes): 35
Subjective
Subjective
Date of Service: February 16, 2025
Started on imodium, diarrhea slowing down
Objective
Data Reviewed
Laboratory Data:
Laboratory Results
02/16/25 07:51
02/16/25 07:51
Laboratory Results
Magnesium 2.2 mg/dl (1.6-2.3) 02/14/25 16:50
Total Bilirubin 1.4 mg/dl (0.2-1.3) H 02/15/25 07:58
AST 15 U/L (17-59) L 02/15/25 07:58
ALT 14 U/L (0-50) 02/15/25 07:58
Alkaline Phosphatase 84 U/L (38-126) 02/15/25 07:58
Lipase 28 U/L (23-300) 02/14/25 16:50
Vital Signs and I&O:
Vital Signs
Temp Pulse Resp BP Pulse Ox
97.5 F 84 16 146/89 99
02/16/25 08:07 02/16/25 08:07 02/16/25 08:07 02/16/25 08:07 02/16/25 08:07
I&O
02/15/25 02/16/25 02/17/25
06:59 06:59 06:59
Intake Total 720 / 720 480 / 480
Output Total 1450 / 1450 500 / 500 600 / 600
Balance -730 / -730 -500 / -500 -120 / -120
[2025-02-16 15:58] LABS: Glucose - Point of Care 195 mg/dl (70-99)
[2025-02-16 16:07] VITALS: BP 102/50
[2025-02-16] MEDS: NOVOLOG FLEXPEN-LOW RESISTANCE 1 UNITS SC (16:44)
[2025-02-16] MEDS: MYFORTIC DELAYED REL. 180 MG PO (20:56)
[2025-02-16 21:39] LABS: Glucose - Point of Care 259 mg/dl (70-99)
[2025-02-16] MEDS: LANTUS 0.2 UNITS SC (22:10)
[2025-02-16 23:00] VITALS: BP 128/65
[2025-02-17 05:50] VITALS: BMI 25.3
[2025-02-17] MEDS: ULTRAM 50 MG PO ×3 (06:00→20:52)
[2025-02-17 07:30] VITALS: BP 126/83
[2025-02-17 07:56] LABS: Glucose - Point of Care 165 mg/dl (70-99)
[2025-02-17 08:09] LABS: Hematocrit 37.0 % (39.0-52.0); Hemoglobin 12.6 g/dL (13.0-18.0); Mean Corp Hgb Conc. 34.1 g/dL (33.0-37.0); Mean Corpuscular Volume 87.7 fL (80.0-94.0); Nucleated Red Blood Cells % 0 % (-); Platelet Count 131 10^3/uL (130-400); Red Cell Dist. Width 15.4 % (11.5-14.5)
[2025-02-17] MEDS: VISBIOME 1 CAP PO (08:11)
[2025-02-17] MEDS: NEURONTIN 300 MG PO ×2 (08:11→20:47)
[2025-02-17] MEDS: ASPIR LOW (ENTERIC COATED) 81 MG PO (08:11)
[2025-02-17] MEDS: PROGRAF 3 MG PO ×2 (08:16→20:47)
[2025-02-17] MEDS: MYFORTIC DELAYED REL. PO (08:17)
[2025-02-17 08:34] LABS: Blood Urea Nitrogen 30 mg/dl (9-20); Calcium 9.0 mg/dl (8.4-10.2); Carbon Dioxide 24 mmol/L (22-30); Chloride 108 mmol/L (98-107); Estimated Creatinine Clearance 65 ml/min; Glucose 174 mg/dl (70-99); Potassium 4.5 mmol/L (3.5-5.1); Sodium 136 mmol/L (135-145); eGFR > 60.00
[2025-02-17] MEDS: NOVOLOG FLEXPEN 10 UNITS SC ×2 (10:03→13:32)
[2025-02-17] MEDS: NOVOLOG FLEXPEN-LOW RESISTANCE 1 UNITS SC ×2 (10:05→13:33)
[2025-02-17 12:04] LABS: Glucose - Point of Care 180 mg/dl (70-99)
[2025-02-17] MEDS: IMODIUM 2 MG PO (12:37)
--- NOTE | 2025-02-17 12:54 | W.PN.HOSP.TC ---
Today's Communication/Plan
-
Consult ID
Assessment / Plan
Assessment / Plan
Persistent diarrhea with mucous and + chronic Abdominal Pain of Unclear Etiology
Prior GI consulted, felt that the acute issues could be mitigated by bowel regimen
So far GI evaluation has been nondiagnostic. Consult ID to rule out any opportunistic pathogens causing diarrhea in this immunosuppressed patient.
Imodium as needed
In the past patient was recommended to stop mycophenolate however instead decreased it. I advised him to go to his transplant physician soon outpatient.
Patient tends to ask for Dilaudid intermittently which was the case of previous admission as well. Currently on tramadol.
ROXY due to diarrheal loss and vol contraction
Normalized creatinine
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
- Continue tacrolimus, mycophenolate
IDDM
- ISS low
- c/w insulin. Patient tends to refuse management at times.
Anemia of Chronic Disease
monitor
Chronic right hip pain
no fx on xray
Chronic back pain
- Continue gabapentin
Thrombocytopenia likely secondary to cirrhosis
Monitor
HX CAD status post stents
- Continue metoprolol
- Continue aspirin
HX Bilateral lower extremity DVT with IVC filter
HX BPH status post TURP
HX Severe calcific atherosclerotic plaque in abdominal aorta
HX Restless leg syndrome: continue ropinirole
DVT Ppx: heparin
Code: Full
Anticipated Discharge: > 48 hours
Subjective/Interval History
-
Date of Service: February 17, 2025
Diarrhea improved with Imodium.
No nausea or vomiting. Still lower abdominal pain and discomfort. No fever or chills. Denies shortness of breath.
Objective Data
-
Labs:
Laboratory Results
02/17/25
07:28
WBC 6.4
Hgb 12.6 L
Hct 37.0 L
Plt Count 131
Sodium 136
Potassium 4.5
Chloride 108 H
Carbon Dioxide 24
BUN 30 H
Creatinine 1.2
Glucose 174 H
Calcium 9.0
Vital Signs:
Vital Signs
Temp Pulse Resp BP Pulse Ox
97.2 F 82 16 126/83 98
02/17/25 07:30 02/17/25 07:30 02/17/25 07:30 02/17/25 07:30 02/17/25 07:30
I&O
02/16/25 02/17/25 02/18/25
06:59 06:59 06:59
Intake Total 1200 / 1200
Output Total 500 / 500 1000 / 1000
Balance -500 / -500 200 / 200
Physical Exam
-
General: Comfortable
Respiratory: Non Labored Respirations and Accessory Resp Muscle Use
Cardiac: Regular Rhythm and S1/S2; Negative Tachycardic
GI: Soft, Nontender, Nondistended and Normal Bowel Sounds
Neuro: AO x 3
Psych: Calm
Data Reviewed
-
Labs: Labs Reviewed by me
--- NOTE | 2025-02-17 13:57 | CON.ID ---
Consultation
-
Date/Time Consultation Requested: 02/17/2025 1251
Date/Time Consultation Performed: 02/17/2025 1357
Requesting Provider: Dr. Miranda
Performing Provider: Dr. Garcia
Reason for Consultation: Diarrhea
Chief Complaint / Past History
Chief Complaint
Right hip pain and right heel wound with pain
History of Present Illness
Buster Crawford is a 65-year-old male being evaluated at the request of Dr. Miranda regarding diarrhea. History is obtained from chart review, along with patient interview.
The patient has a significant past medical history of hep C with liver cirrhosis and underwent a liver/kidney transplant in 2021 at [facility]. He is maintained on mycophenolate and tacrolimus. He has had multiple recent admissions
for ongoing diarrhea, and presents back to [facility] on 02/14, approximately 7 days after being discharged, for further evaluation of persistent diarrhea. Since discharge she notes increased diarrhea and persistent lower abdominal pain. He
reports approximately 5 episodes of loose stool per day. On the day of admission here he also reported some bloody mucus mixed in with the stool.
Since admission he has been evaluated by GI who noted that his prior admission was complicated by moderate stool burden and he was started on a laxative. Currently he denies any fevers or chills, but does note ongoing mushy stool with the
consistency of 'pudding'. Additionally, he notes some lower abdominal discomfort.
Past History
Additional Past Medical History:
Liver cirrhosis
Hep C
DM type II
CAD
BPH
Bilateral LE DVT
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
Additional Past Surgical History:
Liver/kidney transplant (2021)
PCI with stenting
IVC filter
TURP
Allergy History:
No Known Allergies Allergy (Verified 01/27/25 15:51)
Medications Reviewed: Yes
Current Antibiotics:
None
Social History
Tobacco: Non-Smoker
Alcohol: None
Personal: Single
Family History
Family History: Not Pertinent
Review of Systems
Vital Signs
Temp Pulse Resp BP Pulse Ox
97.2 F 82 16 126/83 98
02/17/25 07:30 02/17/25 07:30 02/17/25 07:30 02/17/25 07:30 02/17/25 07:30
Physical Exam
Physical Exam
Constitutional: No Acute Distress, Comfortable and Non-toxic
Head: Normocephalic
Eyes: Pupils Equal, Pupils Round, No Conjunctival Hemorrhage and Sclera Anicteric
Oral: No Thrush and No Ulcers
Cardiovascular: Regular Rate and S1/S2; Negative S3/S4
Pulmonary: Clear; Negative Wheezes, Rales or Rhonchi
Gastrointestinal: Soft, Tender (minimal; lower quadrants), Non Distended, Normal Bowel Sounds, No Rebound and No Guarding
Extremities: Negative Edema, Cyanosis or Erythema
Neurological: Awake and Alert
Psychological: Calm
Lab / Diagnostic Study Results
02/17/25 07:28
02/17/25 07:28
Abs Immat Gran (auto) 0.0 10^3/uL (0-0.05) 02/17/25 07:28
Absolute Neuts (auto) 4.3 10^3/uL (1.4-6.5) 02/17/25 07:28
Absolute Lymphs (auto) 1.3 10^3/uL (1.2-3.4) 02/17/25 07:28
Absolute Monos (auto) 0.5 10^3/uL (0.1-0.6) 02/17/25 07:28
Absolute Basos (auto) 0.0 10^3/uL (0-0.2) 02/17/25 07:28
Immature Gran % 0.5 % (0-0.5) 02/17/25 07:28
Neutrophils % 67.3 % (42.2-75.2) 02/17/25 07:28
Lymphocytes % 20.5 % (20.5-51.1) 02/17/25 07:28
Monocytes % 7.4 % (1.7-9.3) 02/17/25 07:28
Eosinophils % 3.8 % (0-6) 02/17/25 07:28
Basophils % 0.5 % (0-2) 02/17/25 07:28
Ur Squamous Epith Cells 3-5 /LPF (Few) 02/15/25 00:07
Microbiology Results
Micro:
02/14/25 23:50 Salmonella/Shigella Culture - Preliminary
Feces/Stool Culture in Progress
Campylobacter Culture - Final
No Campylobacter species isolated.
Shiga Toxin Test - Final
No E. coli Shiga Toxin 1 or 2 detected.
02/15/25 00:07 Urine Culture - Final
Urine NO GROWTH
02/14/25 23:50 C. difficile GDH Antigen & Toxins - Final
Feces/Stool Negative for toxigenic C.difficile
Imaging:
01/27/2025 CT abdomen/pelvis without contrast: right upper quadrant liver transplant in place. Plastic stent in the bile duct extending into the duodenum. Moderate splenomegaly secondary to chronic portal hypertension. Severe chronic bilateral
atrophy of the [place] kidneys. Left lower quadrant renal transplant in place with moderate to severe chronic distention of the left intrarenal collecting system. There is a moderate amount of fecal material throughout the colon. IVC filter in
place. Please see full dictation for additional detail.
Assessment / Plan
Diarrhea
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
Liver cirrhosis, ESRD; S/P liver/kidney transplant (2021)
DM type II
CAD
BPH
Bilateral LE DVT with IVC filter in place
Recommendations:
At present, patient with reported 'mushy' stool and little to no liquid stool.
Prior diarrhea may have been secondary to laxatives.
Hold on addition of antibiotics.
Patient with immunosuppressed and may be susceptible to other GI pathogens.
Check Entamoeba histolytica antigen
Check O&P
Check GI pathogen panel
Follow-up for improvement in stool consistency and amount.
Given immunosuppression, discontinue further probiotics.
Patient will need outpatient follow-up with his transplant program.
--- NOTE | 2025-02-17 15:33 | CM ---
patient seen at bedside
IA completed
ID consulted
dx: persistent diarrhea
PMH: hep C with liver cirrhosis and underwent a liver/kidney transplant in 2021 at [facility]
patient lives in a 1st floor apartment, no steps
PLOF: independent, does not use assistive device
DME: walker
denies VN/states has been in Acute rehab at [facility]
PCP: Aimee Mullins
Pharmacy: [address] [place]
PLAN: Home, no needs anticipated, CM to continue to follow for discharge planning/needs
[2025-02-17 15:36] LABS: Glucose - Point of Care 56 mg/dl (70-99)
[2025-02-17 16:00] VITALS: BP 111/67
[2025-02-17 16:19] LABS: Glucose - Point of Care 81 mg/dl (70-99)
--- NOTE | 2025-02-17 17:15 | W.PN.GI.CBS2 ---
Today's Communication / Plan
-
.
Assessment / Plan
-
64 year old male with h/o HCV cirrhosis with prior liver/kidney transplant at [facility] in 2021 on mycophenolate (reduced his dose to one daily, although per patient was told to stop in June by [facility] for possible mycophenolate diarrhea) and
tacrolimus, c-diff post transplant, hx Esophageal varices, CAD with prior stenting, IDDM, DVT with filter, prior foot infections who p/w diarrhea.
Diarrhea - chronic. He was admitted and was evaluated for persistent diarrhea in the past, including -ve stool fat, fecal calpro normal, and elastase 266 which ruled out pancreatic insufficiency. Last colonoscopy 06/2024 with fair prep,
hemorrhoids, stool in entire colon, diverticulosis, bx neg CVM and microscopic colitis. Eventually seen in [facility] and was told to stop his mycophenolate but he decided to decreased dose instead with some improvement. He was recently here about 2
weeks ago for abdo pain, moderate stool burden noted, and was given laxative which started his diarrhea, and had been having persistent diarrhea since. No blood. Repeat C diff -ve. Repeat stool studies pending. The etiology is unclear. He also
has been receiving dilaudid during admissions. Will check stool electrolytes/osmolality +/- laxative screen.
Started on imodium, 1 soft BM o/n. Stool osmolality/electrolytes are not available in our lab. Ordered stool Magnesium (send out). ID following.
Total Time Spent with Patient (in minutes): 35
Subjective
Subjective
Date of Service: February 17, 2025
1 soft BM o/n with imodium
Objective
Data Reviewed
Laboratory Data:
Laboratory Results
02/17/25 07:28
02/17/25 07:28
Laboratory Results
Magnesium 2.2 mg/dl (1.6-2.3) 02/14/25 16:50
Total Bilirubin 1.4 mg/dl (0.2-1.3) H 02/15/25 07:58
AST 15 U/L (17-59) L 02/15/25 07:58
ALT 14 U/L (0-50) 02/15/25 07:58
Alkaline Phosphatase 84 U/L (38-126) 02/15/25 07:58
Lipase 28 U/L (23-300) 02/14/25 16:50
Vital Signs and I&O:
Vital Signs
Temp Pulse Resp BP Pulse Ox
97.6 F 87 18 111/67 98
02/17/25 16:00 02/17/25 16:00 02/17/25 16:00 02/17/25 16:00 02/17/25 16:00
I&O
02/16/25 02/17/25 02/18/25
06:59 06:59 06:59
Intake Total 1200 / 1200
Output Total 500 / 500 1000 / 1000
Balance -500 / -500 200 / 200
[2025-02-17] MEDS: NOVOLOG FLEXPEN-LOW RESISTANCE SC (17:16)
[2025-02-17] MEDS: NOVOLOG FLEXPEN SC (17:16)
[2025-02-17 19:16] LABS: Glucose - Point of Care 324 mg/dl (70-99)
[2025-02-17] MEDS: MYFORTIC DELAYED REL. 180 MG PO (20:47)
[2025-02-17 21:37] LABS: Glucose - Point of Care 455 mg/dl (70-99)
[2025-02-17 22:13] LABS: Glucose 425 mg/dl (70-99)
[2025-02-17] MEDS: LANTUS 0.2 UNITS SC (22:34)
[2025-02-17] MEDS: NOVOLOG FLEXPEN 6 UNITS SC (22:35)
[2025-02-17 23:00] VITALS: BP 131/82
[2025-02-18 00:41] LABS: Glucose - Point of Care 362 mg/dl (70-99)
[2025-02-18] MEDS: NOVOLOG FLEXPEN 5 UNITS SC (01:20)
[2025-02-18 03:41] LABS: Glucose - Point of Care 133 mg/dl (70-99)
--- NOTE | 2025-02-18 07:00 | PTCARENOTE ---
Weight was not obtained on patient because he refused.
[2025-02-18 07:30] VITALS: BP 133/92
[2025-02-18] MEDS: NEURONTIN 300 MG PO ×2 (08:22→20:56)
[2025-02-18] MEDS: ASPIR LOW (ENTERIC COATED) 81 MG PO (08:23)
[2025-02-18] MEDS: MYFORTIC DELAYED REL. PO (08:23)
[2025-02-18] MEDS: PROGRAF 3 MG PO ×2 (08:26→20:56)
[2025-02-18 08:29] LABS: Glucose - Point of Care 110 mg/dl (70-99)
[2025-02-18] MEDS: ULTRAM 50 MG PO ×2 (08:37→21:03)
[2025-02-18] MEDS: NOVOLOG FLEXPEN-LOW RESISTANCE SC (08:40)
[2025-02-18] MEDS: NOVOLOG FLEXPEN 10 UNITS SC ×3 (09:10→18:40)
--- NOTE | 2025-02-18 10:19 | W.PN.GI.CBS2 ---
Addendum entered and electronically signed by ALTON Rodriguez 02/18/25 14:12:
01/11 tac level 11.5 [address] follow up at [facility] for cont care.
Addendum entered and electronically signed by Karly Esteban Do, MD 02/18/25 13:07:
I saw and examined the patient.
The DECORATING CONSULTANT's note was reviewed and I agree with the note.
Comment: He continue to report abd pain but ate 100% of breakfast without issue. No further diarrhea and today c/o constipation. Vitals stable, exam NTTP large scars well healed. Labs reviewed.
Recommendations
- Tolerating diet 100%
- No further diarrhea, stop immodium suspect in past overflow diarrhea from constipation (based on prior CT imaging)
- Recent EGD/colon done spring 2024 with neg bx
- Stool studies negative for infection
- Check prograf level
- Advise him close FU with liner inserter/GI at [facility]
- Given h/o opioid dependence and remote Hep C would be cautious with opioid use
At this juncture no further GI recs will sign off please call for ?
Original Note:
Today's Communication / Plan
-
pt with diarrhea and abdominal pain - some improvement with Imodium but now stopped
concern for medication induced vs other
some improvement with Imodium overnight but also prior imaging with increased stool burden
again discussed possible mycophenolate related -- he was due to see [facility] today but canceled with admission and reviewed with patient he will need to discuss immunosuppression with his transplant team
c-diff and stool cx 02/14 neg
ID following - probiotics held, hold antibiotics, for check of Entamoeba histolytica antigen, O + P
reviewed with nursing for collecting all stools for consistency and volume
monitor stools off Imodium
still with lower abdominal pain chronic last few weeks etiology unclear
f/u outpatient with liner inserter at [facility] with hx transplant as missed appt today to discuss immunosuppression medication
cont diet as tolerated
pt asking about repeat colonoscopy but just completed in June will review with Dr. Ambriz
reviewed with nursing staff and Dr. Miranda
Assessment / Plan
-
64yo with hx hep C cirrhosis with prior liver/kidney transplant at [facility] in 2021 on mycophenolate (reduced his dose to one daily, although per patient was told to stop in June by [facility] for possible mycophenolate diarrhea) and tacrolimus,
c-diff post transplant, hx Esophageal varices, prior stenting ? esophageal vs biliary, CAD with prior stenting, IDDM, DVT with filter, BPH with prior TURP, ORIF hip, prior foot infection with several admission in past year. He was admitted several
times past spring with concern for diarrhea with complete workup for diarrhea in past including stool fat neg, fecal calpro normal, and elastase 266 which ruled out pancreatic insufficiency. Last colonoscopy 06/2024 to [facility]- fair prep, hemorrhoids,
stool in entire colon, diverticulosis, bx neg CVM and microscopic colitis. Eventually patient went to [facility] where it was recommended that he stop his mycophenolate for possible mycophenolate induced diarrhea but pt decided to decreased dose with
improvement. Pt also with recent admission 01/09- 01/20 with abdominal pain and diarrhea. CT with concern for proctocolitis, mild diverticulitis at the junction of the distal descending colon proximal sigmoid colon, mild to moderate colonic fecal
burden,central lucency of the prostate gland suggesting a TURP defect versus central gland prostatic cyst. Pt was given antibiotics then had rise in LFT's with further follow up imaging concern for choledocholithiasis. He completed EUS and ERCP x
2 during admission and had repeat CT with improvement. He then returned 01/28- 02/07 with FBS in 500's with imaging moderate stool then diarrhea with bowel regiment. He also had biliary stent removal. He now returns again with diarrhea and lower
abdominal pain
01/27 CT on admission with changes of transplant, stent into duodenum, SM, renal atrophy, bladder distention, moderate stool in colon, filter in place and diverticulosis. He has been treated for constipation and now persistent diarrhea.
02/05 abd film Nonobstructed bowel gas pattern.
-diarrhea possible mycophenolate related to change in dosage with extensive work up in past
-lower abdominal pain
-mild increased Bili and alk phos - improved
-moderate stool on CT on admission
-bladder distention on admission
-s/p EUS ECRP x 2 with choledocholithiasis and stent placement s/p stent removal 01/29
-recent diverticulitis not noted on repeat CT
-hyperglycemia on admission
-hx liver/kidney transplant on chronic immunosuppression
other med problems:
-hx c-diff post transplant
-hx prior EV with ? stent
-CAD with prior stenting
-IDDM
-hx DVT with prior filter
-BPH with TURP
-hip pain
PLAN:
pt with diarrhea and abdominal pain - some improvement with Imodium but now stopped
concern for medication induced vs other
some improvement with Imodium overnight but also prior imaging with increased stool burden
again discussed possible mycophenolate related -- he was due to see [facility] today but canceled with admission and reviewed with patient he will need to discuss immunosuppression with his transplant team
c-diff and stool cx 02/14 neg
ID following - probiotics held, hold antibiotics, for check of Entamoeba histolytica antigen, O + P
reviewed with nursing for collecting all stools for consistency and volume
monitor stools off Imodium
still with lower abdominal pain chronic last few weeks etiology unclear
f/u outpatient with liner inserter at [facility] with hx transplant as missed appt today to discuss immunosuppression medication
cont diet as tolerated
pt asking about repeat colonoscopy but just completed in June will review with Dr. Ambriz
reviewed with nursing staff and Dr. Miranda
Subjective
Subjective
Date of Service: February 18, 2025
Pt states diarrhea improved with Imodium but has taken Imodium in past with recurrent symptoms - pt also with complaints of abdominal pain
Objective
Data Reviewed
Laboratory Data:
Laboratory Results
02/17/25 07:28
02/17/25 21:54
Laboratory Results
Magnesium 2.2 mg/dl (1.6-2.3) 02/14/25 16:50
Total Bilirubin 1.4 mg/dl (0.2-1.3) H 02/15/25 07:58
AST 15 U/L (17-59) L 02/15/25 07:58
ALT 14 U/L (0-50) 02/15/25 07:58
Alkaline Phosphatase 84 U/L (38-126) 02/15/25 07:58
Lipase 28 U/L (23-300) 02/14/25 16:50
Vital Signs and I&O:
Vital Signs
Temp Pulse Resp BP Pulse Ox
97.9 F 86 16 133/92 99
02/18/25 07:30 02/18/25 07:30 02/18/25 07:30 02/18/25 07:30 02/18/25 07:30
I&O
02/17/25 02/18/25 02/19/25
06:59 06:59 06:59
Intake Total 1200 / 1200 1500 / 1500
Output Total 1000 / 1000 400 / 400
Balance 200 / 200 1100 / 1100
Physical Exam
Physical Exam
HEENT: Anicteric and Moist mucous membranes
Cardiology: Normal Sinus Rhythm
Pulmonary: Clear
GI: Soft, Non Distended and Tender (mild lower abdomen )
Extremities: No Edema
Neuro: Non Focal
[2025-02-18 12:14] LABS: Glucose - Point of Care 161 mg/dl (70-99)
[2025-02-18] MEDS: NOVOLOG FLEXPEN-LOW RESISTANCE 1 UNITS SC (13:20)
--- NOTE | 2025-02-18 14:32 | W.PN.ID1 ---
Date of Service
Date of Service: February 18, 2025
Today's Communication
Observe off antibiotics.
Assessment / Plan
Diarrhea
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
Liver cirrhosis, ESRD; S/P liver/kidney transplant (2021)
DM type II
CAD
BPH
Bilateral LE DVT with IVC filter in place
Recommendations:
Patient reports no stooling since yesterday.
Prior diarrhea may have been secondary to laxatives.
Hold on antibiotics for now.
Patient with immunosuppressed and may be susceptible to other GI pathogens.
Entamoeba histolytica antigen, O&P, GI pathogen panel ordered.
Given immunosuppression, would avoid probiotics unless approved by Transplant program.
Patient will need outpatient follow-up with his transplant program.
����������������������������������������������������������
Chief Complaint
-: Other (Intractable diarrhea)
Subjective / Review of Systems
Patient seen and examined. Reports no diarrhea overnight. Notes some lower abdominal discomfort. No fevers or chills.
Vital Signs / Physical Exam
Vital Signs
Vital Signs
Temp Pulse Resp BP Pulse Ox
97.9 F 86 16 133/92 99
02/18/25 07:30 02/18/25 07:30 02/18/25 07:30 02/18/25 07:30 02/18/25 07:30
Physical Exam
Constitutional: No Acute Distress, Comfortable and Non-toxic
Eyes: Sclera Anicteric
Cardiovascular: S1/S2; Negative S3/S4
Pulmonary: Non Labored
Gastrointestinal: Soft, Non Tender, Non Distended, Normal Bowel Sounds, No Rebound and No Guarding
Extremities: Negative Edema, Cyanosis or Erythema
Neurological: Awake and Alert
Objective Data
Lab Data
Lab Results
02/17/25 07:28
02/17/25 21:54
Estimated Creat Clear 65 ml/min 02/17/25 07:28
Total Bilirubin 1.4 mg/dl (0.2-1.3) H 02/15/25 07:58
AST 15 U/L (17-59) L 02/15/25 07:58
ALT 14 U/L (0-50) 02/15/25 07:58
Alkaline Phosphatase 84 U/L (38-126) 02/15/25 07:58
Most recent labs reviewed.
Micro Results:
02/14/25 23:50 Salmonella/Shigella Culture - Final
Feces/Stool No Salmonella, Shigella, Aeromonas or Plesiomonas species
isolated.
Campylobacter Culture - Final
No Campylobacter species isolated.
Shiga Toxin Test - Final
No E. coli Shiga Toxin 1 or 2 detected.
02/15/25 00:07 Urine Culture - Final
Urine NO GROWTH
02/14/25 23:50 C. difficile GDH Antigen & Toxins - Final
Feces/Stool Negative for toxigenic C.difficile
Imaging:
01/27/2025 CT abdomen/pelvis without contrast: right upper quadrant liver transplant in place. Plastic stent in the bile duct extending into the duodenum. Moderate splenomegaly secondary to chronic portal hypertension. Severe chronic bilateral
atrophy of the [place] kidneys. Left lower quadrant renal transplant in place with moderate to severe chronic distention of the left intrarenal collecting system. There is a moderate amount of fecal material throughout the colon. IVC filter in
place. Please see full dictation for additional detail.
--- NOTE | 2025-02-18 15:34 | W.PN.HOSP.TC ---
Today's Communication/Plan
-
Continue with Imodium for symptomatic treatment.
Follow stool studies requested by ID
DC planning
Assessment / Plan
Assessment / Plan
Persistent diarrhea with mucous and + chronic Abdominal Pain of Unclear Etiology
Prior GI consulted, felt that the acute issues could be mitigated by bowel regimen
So far GI evaluation has been nondiagnostic. Consulted ID to rule out any opportunistic pathogens causing diarrhea in this immunosuppressed patient.
Imodium as needed
In the past patient was recommended to stop mycophenolate however instead decreased it. I advised him to go to his transplant physician soon outpatient.
Patient tends to ask for Dilaudid intermittently which was the case of previous admission as well. Currently on tramadol.
ROXY due to diarrheal loss and vol contraction
Normalized creatinine
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
- Continue tacrolimus, mycophenolate
IDDM
- ISS low
- c/w insulin. Patient tends to refuse management at times.
- Switch to diabetic diet
Anemia of Chronic Disease
monitor
Chronic right hip pain
no fx on xray
Chronic back pain
- Continue gabapentin
Thrombocytopenia likely secondary to cirrhosis
Monitor
HX CAD status post stents
- Continue metoprolol
- Continue aspirin
HX Bilateral lower extremity DVT with IVC filter
HX BPH status post TURP
HX Severe calcific atherosclerotic plaque in abdominal aorta
HX Restless leg syndrome: continue ropinirole
DVT Ppx: heparin
Code: Full
Anticipated Discharge: Within 24 hours
Subjective/Interval History
-
Date of Service: February 18, 2025
Improved diarrhea on Imodium.
No nausea vomiting. Still complains of lower abdominal discomfort as before.
No fever or chills.
Objective Data
-
Vital Signs:
Vital Signs
Temp Pulse Resp BP Pulse Ox
97.9 F 86 16 133/92 99
02/18/25 07:30 02/18/25 07:30 02/18/25 07:30 02/18/25 07:30 02/18/25 07:30
I&O
02/17/25 02/18/25 02/19/25
06:59 06:59 06:59
Intake Total 1200 / 1200 1500 / 1500
Output Total 1000 / 1000 400 / 400
Balance 200 / 200 1100 / 1100
Physical Exam
-
General: No Apparent Distress
HEENT: Moist Mucous Membranes
Respiratory: Non Labored Respirations; Negative Accessory Resp Muscle Use
Cardiac: Regular Rhythm and S1/S2; Negative Tachycardic
GI: Soft, Nontender, Nondistended and Normal Bowel Sounds
Neuro: AO x 3
Psych: Calm
--- NOTE | 2025-02-18 15:38 | CM ---
Patient seen at bedside patient did not want to sign OBS and patient was given form. Patient plan is for home with no needs at this time. CM will continue to follow for discharge planning needs.
Plan; home with no needs.
[2025-02-18 16:00] VITALS: BP 107/65
[2025-02-18 18:18] LABS: Glucose - Point of Care 210 mg/dl (70-99)
[2025-02-18] MEDS: NOVOLOG FLEXPEN-LOW RESISTANCE 2 UNITS SC (18:39)
[2025-02-18] MEDS: MYFORTIC DELAYED REL. 180 MG PO (20:56)
[2025-02-18 21:01] LABS: Glucose - Point of Care 91 mg/dl (70-99)
[2025-02-18] MEDS: LANTUS 0.2 UNITS SC (21:04)
[2025-02-18 23:00] VITALS: BP 102/74
[2025-02-19] MEDS: ULTRAM 50 MG PO ×4 (03:18→21:58)
[2025-02-19 03:26] VITALS: BMI 25.5
[2025-02-19] MEDS: NEURONTIN 300 MG PO ×2 (08:20→21:32)
[2025-02-19] MEDS: ASPIR LOW (ENTERIC COATED) 81 MG PO (08:20)
[2025-02-19] MEDS: MYFORTIC DELAYED REL. PO (08:22)
[2025-02-19 08:24] VITALS: BP 118/82
[2025-02-19] MEDS: PROGRAF 3 MG PO ×2 (08:24→21:32)
[2025-02-19 08:34] LABS: Glucose - Point of Care 222 mg/dl (70-99)
[2025-02-19] MEDS: NOVOLOG FLEXPEN-LOW RESISTANCE 2 UNITS SC (09:01)
[2025-02-19] MEDS: NOVOLOG FLEXPEN 10 UNITS SC ×3 (09:02→17:26)
[2025-02-19 11:56] LABS: Glucose - Point of Care 172 mg/dl (70-99)
[2025-02-19] MEDS: NOVOLOG FLEXPEN-LOW RESISTANCE 1 UNITS SC ×2 (12:36→17:26)
--- NOTE | 2025-02-19 13:53 | W.PN.HOSP.TC ---
Today's Communication/Plan
-
DC home once he has a bowel movement.
Assessment / Plan
Assessment / Plan
Persistent diarrhea with mucous and + chronic Abdominal Pain of Unclear Etiology
Prior GI consulted, felt that the acute issues could be mitigated by bowel regimen
So far GI evaluation has been nondiagnostic. Consulted ID to rule out any opportunistic pathogens causing diarrhea in this immunosuppressed patient.
Patient now with resolved diarrhea. In fact had no BM in 2 days.
In the past patient was recommended to stop mycophenolate however instead decreased it. I advised him to go to his transplant physician soon outpatient.
Patient tends to ask for Dilaudid intermittently which was the case of previous admission as well. Currently on tramadol.
ROXY due to diarrheal loss and vol contraction
Normalized creatinine
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
- Continue tacrolimus, mycophenolate
IDDM
- ISS low
- c/w insulin. Patient tends to refuse management at times.
- Switch to diabetic diet
Anemia of Chronic Disease
monitor
Chronic right hip pain
no fx on xray
Chronic back pain
- Continue gabapentin
Thrombocytopenia likely secondary to cirrhosis
Monitor
HX CAD status post stents
- Continue metoprolol
- Continue aspirin
HX Bilateral lower extremity DVT with IVC filter
HX BPH status post TURP
HX Severe calcific atherosclerotic plaque in abdominal aorta
HX Restless leg syndrome: continue ropinirole
DVT Ppx: heparin
Code: Full
With resolution of diarrhea and intractable constipation patient could go home but is adamant that he wanted to have a bowel movement before he goes home.
Anticipated Discharge: Within 24 hours
Subjective/Interval History
-
Date of Service: February 19, 2025
No further diarrhea, in fact no BM in 2 days to collect stool specimen.
No nausea vomiting. Tolerating diet.
Objective Data
-
Vital Signs:
Vital Signs
Temp Pulse Resp BP Pulse Ox
97.8 F 86 16 118/82 98
02/19/25 08:24 02/19/25 08:24 02/19/25 08:24 02/19/25 08:24 02/19/25 08:24
I&O
02/18/25 02/19/25 02/20/25
06:59 06:59 06:59
Intake Total 1500 / 1500 1020 / 1020
Output Total 400 / 400 600 / 600
Balance 1100 / 1100 420 / 420
Physical Exam
-
General: Comfortable
Respiratory: Non Labored Respirations; Negative Accessory Resp Muscle Use
Cardiac: Regular Rhythm and S1/S2; Negative Tachycardic
GI: Soft, Nontender, Nondistended and Normal Bowel Sounds
Neuro: AO x 3
Psych: Calm
[2025-02-19 14:48] VITALS: BMI 25.5
--- NOTE | 2025-02-19 15:24 | W.PN.ID1 ---
Date of Service
Date of Service: February 19, 2025
Today's Communication
Observe off antibiotics.
Assessment / Plan
Diarrhea
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
Liver cirrhosis, ESRD; S/P liver/kidney transplant (2021)
DM type II
CAD
BPH
Bilateral LE DVT with IVC filter in place
Recommendations:
Patient reports no further diarrhea
Prior diarrhea may have been secondary to laxatives. Patient has since taken an Imodium with resolution of diarrhea.
Hold on antibiotics for now.
Given resolution of symptomatology, discontinue prior ordered labs as there is no diarrhea at present.
Given immunosuppression, would avoid probiotics unless approved by Transplant program.
Patient will need outpatient follow-up with his transplant program.
����������������������������������������������������������
Chief Complaint
-: Other (Intractable diarrhea)
Subjective / Review of Systems
Patient seen and examined. Reports no further diarrhea, but does have some lower abdominal discomfort.
Review of Systems: No Fever and No Chills
Vital Signs / Physical Exam
Vital Signs
Vital Signs
Temp Pulse Resp BP Pulse Ox
97.8 F 86 16 118/82 98
02/19/25 08:24 02/19/25 08:24 02/19/25 08:24 02/19/25 08:24 02/19/25 08:24
Physical Exam
Constitutional: No Acute Distress, Comfortable and Non-toxic
Eyes: Sclera Anicteric
Cardiovascular: S1/S2; Negative S3/S4
Pulmonary: Non Labored
Gastrointestinal: Soft, Non Tender, Non Distended, Normal Bowel Sounds, No Rebound and No Guarding
Extremities: Negative Edema, Cyanosis or Erythema
Neurological: Awake and Alert
Objective Data
Lab Data
Lab Results
02/17/25 07:28
02/17/25 21:54
Estimated Creat Clear 65 ml/min 02/17/25 07:28
Total Bilirubin 1.4 mg/dl (0.2-1.3) H 02/15/25 07:58
AST 15 U/L (17-59) L 02/15/25 07:58
ALT 14 U/L (0-50) 02/15/25 07:58
Alkaline Phosphatase 84 U/L (38-126) 02/15/25 07:58
Most recent labs reviewed.
Micro Results:
02/14/25 23:50 Salmonella/Shigella Culture - Final
Feces/Stool No Salmonella, Shigella, Aeromonas or Plesiomonas species
isolated.
Campylobacter Culture - Final
No Campylobacter species isolated.
Shiga Toxin Test - Final
No E. coli Shiga Toxin 1 or 2 detected.
02/15/25 00:07 Urine Culture - Final
Urine NO GROWTH
02/14/25 23:50 C. difficile GDH Antigen & Toxins - Final
Feces/Stool Negative for toxigenic C.difficile
Imaging:
01/27/2025 CT abdomen/pelvis without contrast: right upper quadrant liver transplant in place. Plastic stent in the bile duct extending into the duodenum. Moderate splenomegaly secondary to chronic portal hypertension. Severe chronic bilateral
atrophy of the [place] kidneys. Left lower quadrant renal transplant in place with moderate to severe chronic distention of the left intrarenal collecting system. There is a moderate amount of fecal material throughout the colon. IVC filter in
place. Please see full dictation for additional detail.
Care Review
Plan reviewed with: Physician (Hospitalist)
--- NOTE | 2025-02-19 15:47 | CM ---
Pt admitted as observation. CM following for coordination of discharge planning needs.
Discharge anticipated to home with no needs.
[2025-02-19 16:00] VITALS: BP 117/67
[2025-02-19 17:26] LABS: Glucose - Point of Care 167 mg/dl (70-99)
[2025-02-19] MEDS: MYFORTIC DELAYED REL. 180 MG PO (21:32)
[2025-02-19 21:41] LABS: Glucose - Point of Care 105 mg/dl (70-99)
[2025-02-19] MEDS: LANTUS 0.2 UNITS SC (21:47)
[2025-02-19 23:00] VITALS: BP 105/70
[2025-02-20 06:00] VITALS: BMI 25.4
[2025-02-20 07:20] VITALS: BP 111/75
[2025-02-20 07:56] LABS: Glucose - Point of Care 77 mg/dl (70-99)
[2025-02-20] MEDS: NOVOLOG FLEXPEN-LOW RESISTANCE SC (08:01)
--- NOTE | 2025-02-20 09:56 | W.PN.ID1 ---
Date of Service
Date of Service: February 20, 2025
Today's Communication
Observe off antibiotics.
Assessment / Plan
Diarrhea
- resolved. Now with constipation.
Immunosuppression; secondary to medications
Liver cirrhosis, ESRD; S/P liver/kidney transplant (2021)
DM type II
CAD
BPH
Bilateral LE DVT with IVC filter in place
Recommendations:
Patient reports no further diarrhea
Prior diarrhea may have been secondary to laxatives. Patient has since taken loperamide with resolution of diarrhea.
Hold on antibiotics for now.
Given resolution of symptomatology, discontinue prior ordered labs as there is no diarrhea at present.
Given immunosuppression, would avoid probiotics unless approved by transplant program.
Patient will need close outpatient follow-up with his transplant program.
����������������������������������������������������������
Chief Complaint
-: Other (Intractable diarrhea)
Subjective / Review of Systems
Patient seen and examined. Reports no current diarrhea. Notes some lower abdominal discomfort.
Review of Systems: No Fever and No Chills
Vital Signs / Physical Exam
Vital Signs
Vital Signs
Temp Pulse Resp BP Pulse Ox
97.7 F 63 16 111/75 100
02/20/25 07:20 02/20/25 07:20 02/20/25 07:20 02/20/25 07:20 02/20/25 07:20
Physical Exam
Constitutional: No Acute Distress, Comfortable and Non-toxic
Eyes: Sclera Anicteric
Cardiovascular: S1/S2; Negative S3/S4
Pulmonary: Non Labored
Gastrointestinal: Soft, Tender, Non Tender (minimal lower quad discomfort), Non Distended, Normal Bowel Sounds, No Rebound and No Guarding
Extremities: Negative Edema, Cyanosis or Erythema
Neurological: Awake and Alert
Psychological: Calm
Objective Data
Lab Data
Lab Results
02/17/25 07:28
02/17/25 21:54
Estimated Creat Clear 65 ml/min 02/17/25 07:28
Total Bilirubin 1.4 mg/dl (0.2-1.3) H 02/15/25 07:58
AST 15 U/L (17-59) L 02/15/25 07:58
ALT 14 U/L (0-50) 02/15/25 07:58
Alkaline Phosphatase 84 U/L (38-126) 02/15/25 07:58
Most recent labs reviewed.
Micro Results:
02/14/25 23:50 Salmonella/Shigella Culture - Final
Feces/Stool No Salmonella, Shigella, Aeromonas or Plesiomonas species
isolated.
Campylobacter Culture - Final
No Campylobacter species isolated.
Shiga Toxin Test - Final
No E. coli Shiga Toxin 1 or 2 detected.
02/15/25 00:07 Urine Culture - Final
Urine NO GROWTH
02/14/25 23:50 C. difficile GDH Antigen & Toxins - Final
Feces/Stool Negative for toxigenic C.difficile
Imaging:
01/27/2025 CT abdomen/pelvis without contrast: right upper quadrant liver transplant in place. Plastic stent in the bile duct extending into the duodenum. Moderate splenomegaly secondary to chronic portal hypertension. Severe chronic bilateral
atrophy of the [place] kidneys. Left lower quadrant renal transplant in place with moderate to severe chronic distention of the left intrarenal collecting system. There is a moderate amount of fecal material throughout the colon. IVC filter in
place. Please see full dictation for additional detail.
CT Scan: Image Reviewed and Report Reviewed
Care Review
Total Time Spent with Patient (in minutes): Hospitalist
[2025-02-20] MEDS: ULTRAM 50 MG PO (10:11)
[2025-02-20] MEDS: ASPIR LOW (ENTERIC COATED) 81 MG PO (10:13)
[2025-02-20] MEDS: NEURONTIN 300 MG PO (10:15)
[2025-02-20] MEDS: NOVOLOG FLEXPEN 10 UNITS SC ×2 (10:17→12:51)
[2025-02-20] MEDS: MYFORTIC DELAYED REL. PO (10:19)
[2025-02-20] MEDS: PROGRAF 3 MG PO (10:23)
[2025-02-20 11:51] LABS: Glucose - Point of Care 165 mg/dl (70-99)
--- NOTE | 2025-02-20 12:38 | W.DCSUMMARY ---
Discharge Summary
Discharge Data
Date of Admission: 02/14/25
Date of Discharge: 02/20/25
-
Pending Results: No
Hospital Course
Primary diagnosis:
Diarrhea suspected secondary to laxative use
Secondary diagnosis:
Cirrhosis secondary to chronic hepatitis C infection status post liver kidney transplant
Insulin-dependent diabetes mellitus
History of CAD s/p coronary stents
Restless leg syndrome
Hospital course:
64-year-old gentleman with history of hepatitis C cirrhosis with prior liver kidney transplant at [facility] in 2021 on mycophenolate and tacrolimus presented with watery diarrhea for the last 2 weeks. He was admitted several times
past spring with concerns of diarrhea and the workup for diarrhea in the past including stool fat negative, fecal Aron Pro protein normal, elastase 266 which rule out pancreatic insufficiency. Last colonoscopy in June 2024 was a fair preparation
showed hemorrhoids and biopsy was negative for CMV and microscopic colitis.
Eventually patient went to [facility] where he was recommended that he stop mycophenolate for possible drug-induced diarrhea but he decided to decrease the dose and continue with it.
He was here in January 1 week with abdominal pain diarrhea. CT raise the concern for proctocolitis and mild to moderate colonic fecal burden. Was given antibiotics. He was given laxatives which started his diarrhea and has been having persistent
diarrhea since. No blood. Repeat CT was negative.
Etiology remains unclear. He was given 1 dose of Imodium with resolution of diarrhea.
Suspicious of this was related to laxative regimen.
He was also seen by ID for any opportunistic infection causing diarrhea in this immunosuppressed patient but he was having no bowel movements in the last 2 days to produce a specimen. So the testing was canceled.
Today he did not have any bowel movement. No nausea vomiting. Tolerating diet. Abdomen soft and nontender. Afebrile. Pulse was 63. Blood pressure 111/75.
Patient was advised to follow-up with transplant team at [facility] if recurrent diarrhea.
Consultants on board:
GI-Marco Antonio Westbrook
ID-Elio Melchor
Portions of this chart may have been created with voice recognition software. Occasional wrong word or 'sound alike' substitutions may have occurred due to the inherent limitations of voice recognition software.
Discharge Plan
-
Patient Disposition: Home (Routine Discharge)
Discharge Diagnosis/Procedures: Diarrhea suspected laxative related; kidney and liver transplant on immunosuppressive medication
Diet: Diabetic, Carb Controlled
Activity: As tolerated
Driving Restrictions: As prior to admission
Bathing Restrictions: None
Referrals:
[facility], [facility] [Other] - in less than 1 week
Prescriptions:
Continued
aspirin 81 mg Tablet,Delayed Release (Dr/Ec)
81 mg PO DAILY
ropinirole 0.25 mg Tablet
0.5 mg PO HS 30 Days Qty: 60 0RF
mycophenolate sodium 180 mg Tablet,Delayed Release (Dr/Ec)
180 mg PO Q12H@799,1999 Qty: 60 1RF
gabapentin 100 mg capsule
300 mg PO BID
metoprolol succinate 25 mg Tablet Extended Release 24 Hr
12.5 mg PO DAILY Qty: 15 0RF
Patient Comments:
per pt, not taking at all
tacrolimus 1 mg Capsule
3 mg PO Q12H@799,1999 Qty: 180 1RF
Changed
insulin aspart U-100 100 unit/mL (3 mL) Insulin Pen
10 unit SC AC Qty: 15 4RF
insulin glargine [Lantus Solostar U-100 Insulin] 100 unit/mL (3 mL) insulin pen
20 unit SC DAILY Qty: 15 4RF
Discontinued
(DME) blood-glucose meter [Accu-Chek Guide Glucose Meter] Misc
Qty: 1 0RF
Rx Instructions:
As Directed
(DME) Accu-Chek Guide test strips Strip
Qty: 200 0RF
Rx Instructions:
As Directed
(DME) lancets [Accu-Chek Softclix Lancets] Misc
Qty: 200 0RF
Rx Instructions:
As Directed
(DME) pen needle, diabetic [1st Tier Unifine Pentips Plus] 32 gauge x 5/32' needle
See Rx Instructions .Route Qty: 100 4RF
Rx Instructions:
As directed
pantoprazole 40 mg Tablet,Delayed Release (Dr/Ec)
40 mg PO BID 30 Days Qty: 60 2RF
Patient Comments:
per pt, not taking at all
dicyclomine 10 mg capsule
20 mg PO QID PRN (Reason: pain)
Patient Comments:
per pt, not taking at all
baclofen 5 mg tablet
5 mg PO TIDPRN PRN (Reason: muscle spasm) Qty: 30 0RF
Rx Instructions:
per pt, not taking at all
Probiotic 15 billion cell capsule, sprinkle
1 cap PO DAILY Qty: 30 0RF
Patient Comments:
per pt, not taking at all
loperamide 2 mg Capsule
2 mg PO Q4HPRN PRN (Reason: diarrhea) 30 Days Qty: 90 0RF
Discharge Orders:
Discharge Patient (As Directed); Ordered 02/20/25
Ordered By: Elder Miranda
Discharge Date and Time
Print Language: KHMER
[2025-02-20] MEDS: NOVOLOG FLEXPEN-LOW RESISTANCE 1 UNITS SC (12:51)
--- NOTE | 2025-02-20 14:11 | PTCARENOTE ---
Assumed care of pt from previous nurse. Pt for dc today. call prasad is within reach, pt rings deonna., will cont to monitor.
[2025-02-20 15:07] VITALS: BP 118/80
[2025-02-20 15:39] LABS: Glucose - Point of Care 112 mg/dl (70-99)
--- NOTE | 2025-02-20 16:59 | PTCARENOTE ---
Pt discharged to home, IV removed. DC paperwork reviewed, no questions. Pt escorted by wc to waiting car without issue.
== END 2025-02-20 15:55 | disposition home or self-care (01) ==
LOC: 3 WEST ACU 23:55
PROVIDERS: Internal Medicine; Internal Medicine Gastroenterology; Physician Assistant; Registered Nurse; Student in an Organized Health Care Education/Training Program; ADMITTING PHYSICIAN Internal Medicine; ATTENDING PHYSICIAN Internal Medicine; CONSULT PHYSICIAN Internal Medicine Gastroenterology; EMERGENCY PHYSICIAN Emergency Medicine; OTHER PHYSICIAN Internal Medicine Infectious Disease
DX: R19.7 Diarrhea, unspecified (principal); R10.9 Unspecified abdominal pain; R53.1 Weakness; N17.9 Acute kidney failure, unspecified; T86.19 Other complication of kidney transplant; Y83.0 Surgical operation with transplant of whole organ as the cause of abnormal reaction of the patient, or of later complication, without mention of misadventure at the time of the procedure; M25.551 Pain in right hip; M54.9 Dorsalgia, unspecified; K59.00 Constipation, unspecified; K74.60 Unspecified cirrhosis of liver; B18.2 Chronic viral hepatitis C; G89.29 Other chronic pain; K76.6 Portal hypertension; D63.8 Anemia in other chronic diseases classified elsewhere; D84.821 Immunodeficiency due to drugs; D69.6 Thrombocytopenia, unspecified; I25.10 Atherosclerotic heart disease of native coronary artery without angina pectoris; N40.1 Benign prostatic hyperplasia with lower urinary tract symptoms; E11.22 Type 2 diabetes mellitus with diabetic chronic kidney disease; E11.65 Type 2 diabetes mellitus with hyperglycemia; G25.81 Restless legs syndrome; Z95.828 Presence of other vascular implants and grafts; Z86.718 Personal history of other venous thrombosis and embolism; Z94.4 Liver transplant status; Z86.19 Personal history of other infectious and parasitic diseases; Z87.81 Personal history of (healed) traumatic fracture; Z79.621 Long term (current) use of calcineurin inhibitor; Z60.2 Problems related to living alone; Z90.79 Acquired absence of other genital organ(s); Z95.5 Presence of coronary angioplasty implant and graft; Z87.891 Personal history of nicotine dependence; Z79.82 Long term (current) use of aspirin; Z79.624 Long term (current) use of inhibitors of nucleotide synthesis; Z79.4 Long term (current) use of insulin; Z79.899 Other long term (current) drug therapy; Z87.19 Personal history of other diseases of the digestive system
CPT/HCPCS: 73502; 80048; 80053; 80197; 81003; 81015; 82947; 82962; 83036; 83690; 83735; 85025; 85027; 87045; 87046; 87077; 87086; 87324; 87427; 87449; 96361; 96374; 99284

== ENCOUNTER 2025-02-22 17:11 | Emergency (ER) | payer MEDICARE, OTHER, SELFPAY ==
[2025-02-22 17:13] VITALS: BP 166/91
--- NOTE | 2025-02-22 18:11 | ED.GENMED ---
History of Present Illness
<ALTON Terrell - Last Filed: 02/22/25 21:43>
General
Chief Complaint: Abdominal Pain
Source: patient
Exam Limitations: none
Time Seen by Provider: 02/22/25 17:45
Nursing documentation reviewed up to this point in time: agreed with
History of Present Illness
History of Present Illness:
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
recent elevation in LFTs found to have Choledocholithiasis s/p ERCP and stent presents to the ER for evaluation. Patient was recently admitted and discharged 2 days ago for diarrhea. Patient reports the diarrhea has not stopped. It was thought
that diarrhea was secondary to laxative use. CAT scan was concerning for proctocolitis and mild to moderate colonic fecal burden. Patient was given antibiotics at that time. He was seen by infectious disease. Patient was seen previously as well
for diarrhea and at one point was recommended to stop his mycophenolate for possible drug-induced diarrhea but he decided to decrease the dose and continue with it. (He was also admitted in January for abdominal pain and diarrhea. )
He reports he has had multiple episodes of diarrhea per day. He reports he was called by Jacek stating that his stool was positive for C. difficile however C. difficile was negative here 02/14
He reports he was hospitalized there prior to coming to the hospital here several weeks ago.
He c/o of generalized abdominal pain and cramping
He also reports he hurt his right hip on the treadmill yesterday. Denies any fall but reports he jammed it and is supposed to have his hip replaced eventually. He requests Dilaudid for his pain.
Past History
<ALTON Terrell - Last Filed: 02/22/25 21:43>
Past History
ED Past Medical History: IDDM, Renal failure and Other (BPH, hepatitis C)
ED Past Surgical History: Cardiac (For cardiac stents 2021), Urological and Other (Liver transplant, kidney transplant 2021)
Social History
Tobacco: Non-smoker
Alcohol: None
Drug: Former user
Personal: Single
Living: homeless
Phy Exam
<ALTON Terrell - Last Filed: 02/22/25 21:43>
General Physical Exam
General Presentation: no apparent distress
General age: appears stated age
General Skin: warm and dry
General Habitus: normal
General Mental: alert
General Hydration: appears well hydrated
Cardiovascular Exam
Cardiovascular Exam: regular rate/rhythm, no murmur and normal peripheral pulses
Pulmonary Exam
Pulmonary Exam: lungs clear and no respiratory distress
Gastrointestinal Exam
Gastrointestinal Exam: soft and other ( soft minimal non specific tenderness )
Neurological Exam
Neurological Exam: alert and oriented x3
Musculoskeletal Exam
Musculoskeletal Exam: full ROM
Skin Exam
Skin Exam: normal color and warm/dry
Psychiatric Exam
Psychiatric Exam: normal mood/affect
Course
<ALTON Terrell - Last Filed: 02/22/25 21:43>
Orders/Labs/Results
Orders:
Orders
02/22/25 18:27
Complete Blood Count/With Diff Urgent
Comprehensive Metabolic Panel Urgent
02/22/25 18:39
Hip, Right 2-3 Views [CR Hip - RT w/wo Pel 2-3 Vw*] Urgent
Comment:
Reason For Exam: trauma
Include a pelvis x-ray?: Yes
02/22/25 20:01
CDIFF [C difficile Antigen & Toxins] Urgent
MARIO Source: Feces/Stool
Specimen Description:
02/22/25 20:02
0.9% Sodium Chloride 1000 ml [Nss] 1,000 ml IV BOLUS
Abnormal Lab Results
02/22/25
18:27
RBC 4.07 L 10^6/uL
(4.70-6.10)
Hgb 12.6 L g/dL
(13.0-18.0)
Hct 36.1 L %
(39.0-52.0)
RDW 15.3 H %
(11.5-14.5)
Plt Count 129 L 10^3/uL
(130-400)
Absolute Lymphs (auto) 1.1 L 10^3/uL
(1.2-3.4)
Immature Gran % 0.6 H %
(0-0.5)
Lymphocytes % 15.2 L %
(20.5-51.1)
BUN 40 H mg/dl
(9-20)
Glucose 268 H mg/dl
(70-99)
02/22/25 18:27
02/22/25 18:27
Vital Signs
Initial and Last Documented VS:
Initial Vital Signs
Temp Pulse Resp BP Pulse Ox
97.2 F 99 16 166/91 100
02/22/25 17:13 02/22/25 17:13 02/22/25 17:13 02/22/25 17:13 02/22/25 17:13
Last Documented Vital Signs
Temp Pulse Resp BP Pulse Ox
97.2 F 82 16 158/85 100
02/22/25 17:13 02/22/25 20:30 02/22/25 20:30 02/22/25 20:30 02/22/25 20:30
Representative consulted with Physician
Representative consulted with physician?: Yes
Name of Physician Consulted: Christina
<Esdras Vasquez, DO - Last Filed: 02/22/25 20:35>
Orders/Labs/Results
Orders:
Orders
02/22/25 18:27
Complete Blood Count/With Diff Urgent
Comprehensive Metabolic Panel Urgent
02/22/25 18:39
Hip, Right 2-3 Views [CR Hip - RT w/wo Pel 2-3 Vw*] Urgent
Comment:
Reason For Exam: trauma
Include a pelvis x-ray?: Yes
02/22/25 20:01
CDIFF [C difficile Antigen & Toxins] Urgent
MARIO Source: Feces/Stool
Specimen Description:
02/22/25 20:02
0.9% Sodium Chloride 1000 ml [Nss] 1,000 ml IV BOLUS
Abnormal Lab Results
02/22/25
18:27
RBC 4.07 L 10^6/uL
(4.70-6.10)
Hgb 12.6 L g/dL
(13.0-18.0)
Hct 36.1 L %
(39.0-52.0)
RDW 15.3 H %
(11.5-14.5)
Plt Count 129 L 10^3/uL
(130-400)
Absolute Lymphs (auto) 1.1 L 10^3/uL
(1.2-3.4)
Immature Gran % 0.6 H %
(0-0.5)
Lymphocytes % 15.2 L %
(20.5-51.1)
BUN 40 H mg/dl
(9-20)
Glucose 268 H mg/dl
(70-99)
02/22/25 18:27
02/22/25 18:27
Vital Signs
Initial and Last Documented VS:
Initial Vital Signs
Temp Pulse Resp BP Pulse Ox
97.2 F 99 16 166/91 100
02/22/25 17:13 02/22/25 17:13 02/22/25 17:13 02/22/25 17:13 02/22/25 17:13
Last Documented Vital Signs
Temp Pulse Resp BP Pulse Ox
97.2 F 82 16 158/85 100
02/22/25 17:13 02/22/25 20:30 02/22/25 20:30 02/22/25 20:30 02/22/25 20:30
<ALTON Terrell - Last Filed: 02/22/25 21:43>
MDM/Problems Addressed
MDM/Problems Addressed:
Patient is a 65-year-old male as documented by with complicated medical history presents with complaints of continued diarrhea and right hip pain. Patient had seen complaint of right hip pain during previous admission. He ambulates well and has
good range of motion no concerning findings on x-ray there is no complaints of fever there is no redness on exam no concern for infection. Patient reports diarrhea however no diarrhea episodes here and abdomen is soft. He appears in no acute
distress. C. difficile was - February 14. Patient overall is well-appearing in no acute distress afebrile normal white count stable hemoglobin BUN elevated however has been elevated in the past with normal creatinine. Patient's sugar mildly
elevated however no gap normal bicarb normal potassium all other electrolytes normal. Patient was given fluids.
Nontoxic stable for discharge home no acute cause or concern for admission
Patient was eval by ED physician agrees with assessment plan.
Chronic conditions affecting care:
Renal liver transplant hepatitis C history diabetes chronic pain
<ALTON Terrell - Last Filed: 02/22/25 21:43>
*Pulse Oximetry
SaO2: 100
Oxygen Mode of Delivery: Room air
Patient hypoxic: no
*Critical Care Note
Total Time (30-74mins, 75-104mins- exclusive of procedures): Not Applicable
Data Reviewed
Review of Other/Old Records Reveals: Labs, Radiology Studies and Discharge Summary
Source: patient
ED Attending Note
<ALTON Terrell - Last Filed: 02/22/25 21:43>
-
Portions of this chart may have been created with voice recognition software.� Occasional wrong word or��sound alike� substitutions may have occurred due to the inherent limitations of voice recognition software.
<Esdras Vasquez, DO - Last Filed: 02/22/25 20:35>
ED Attending Note
Patient seen and examined by attending physician: Yes
ED Attending Note:
I have reviewed and agree with history and treatment plan by ALTON Charles. My exam revealed 65-year-old male in no acute distress. Minimal tenderness around right hip, no signs of fracture labs at baseline. Doubt C. difficile. Patient
states he had diarrhea but went before anyone could collect it here. Abdomen exam benign. Do not think patient requires any repeat imaging. Stable for discharge follow-up with primary care return
Discharge Plan
Departure
Patient Disposition: Home (Routine Discharge)
Date of Disposition: 02/22/25
Time of Disposition: 21:32
Patient with high blood pressure during this ER visit?: Yes
Condition: Fair
Covid-19: Not Applicable
Discharge Problem:
Hip pain, Diarrhea
Instructions: Diarrhea in teens and adults, Hip pain - ED (DC)
Prescriptions:
No Action
aspirin 81 mg Tablet,Delayed Release (Dr/Ec)
81 mg PO DAILY
ropinirole 0.25 mg Tablet
0.5 mg PO HS 30 Days Qty: 60 0RF
mycophenolate sodium 180 mg Tablet,Delayed Release (Dr/Ec)
180 mg PO Q12H@799,1999 Qty: 60 1RF
gabapentin 100 mg capsule
300 mg PO BID
metoprolol succinate 25 mg Tablet Extended Release 24 Hr
12.5 mg PO DAILY Qty: 15 0RF
Patient Comments:
per pt, not taking at all
tacrolimus 1 mg Capsule
3 mg PO Q12H@08,1999 Qty: 180 1RF
insulin aspart U-100 100 unit/mL (3 mL) Insulin Pen
10 unit SC AC Qty: 15 4RF
insulin glargine [Lantus Solostar U-100 Insulin] 100 unit/mL (3 mL) insulin pen
20 unit SC DAILY Qty: 15 4RF
Referrals:
Buster Arteaga MD [Family Provider, Family Practice]
Activity Restrictions/Additional Instructions:
Follow-up with your family doctor in the next several days.
return if any worsening of symptoms.
Interventions
Interventions:
*Risk Screen - Suicide Last Done: 02/22/25 17:13
*General Assessment Last Done: 02/22/25 18:23
*Neglect/Abuse Screening Last Done: 02/22/25 17:13
LW-Krrqgg-Qnzfeqkotg Assessment Last Done: 02/22/25 18:23
Discharge Date and Time
Print Language: IRISH
[2025-02-22 18:23] VITALS: BMI 24.1
[2025-02-22 18:35] LABS: Hematocrit 36.1 % (39.0-52.0); Hemoglobin 12.6 g/dL (13.0-18.0); Mean Corp Hgb Conc. 34.9 g/dL (33.0-37.0); Mean Corpuscular Volume 88.7 fL (80.0-94.0); Nucleated Red Blood Cells % 0 % (-); Platelet Count 129 10^3/uL (130-400); Red Cell Dist. Width 15.3 % (11.5-14.5)
[2025-02-22 19:05] LABS: ALT (SGPT) 22 U/L (0-50); AST (SGOT) 22 U/L (17-59); Albumin 4.0 g/dl (3.5-5.0); Alkaline Phosphatase 102 U/L (38-126); Blood Urea Nitrogen 40 mg/dl (9-20); Calcium 8.4 mg/dl (8.4-10.2); Carbon Dioxide 28 mmol/L (22-30); Chloride 105 mmol/L (98-107); Estimated Creatinine Clearance 61 ml/min; Glucose 268 mg/dl (70-99); Potassium 4.7 mmol/L (3.5-5.1); Sodium 137 mmol/L (135-145); Total Protein 6.5 g/dl (6.3-8.2); eGFR > 60.00
[2025-02-22] MEDS: NSS 1000 IV (20:07)
[2025-02-22 20:30] VITALS: BP 158/85
== END 2025-02-22 21:49 | disposition home or self-care (01) ==
LOC: EMR 17:11
PROVIDERS: Nurse Practitioner; EMERGENCY PHYSICIAN Emergency Medicine; FAMILY PHYSICIAN Family Medicine
DX: M25.551 Pain in right hip (principal); R19.7 Diarrhea, unspecified; E11.9 Type 2 diabetes mellitus without complications; Z94.4 Liver transplant status; Z94.0 Kidney transplant status; Z86.19 Personal history of other infectious and parasitic diseases; Z95.5 Presence of coronary angioplasty implant and graft; Z86.718 Personal history of other venous thrombosis and embolism; Z95.828 Presence of other vascular implants and grafts
CPT/HCPCS: 99284; 96360; 73502; 80053; 85025